=== PATIENT | male | born 1990 | race Caucasian/White ===

== ENCOUNTER 2018-09-11 19:54 | Inpatient (IN) | payer SELFPAY ==
[~2018-09-11] VITALS: Ht 172.7 cm; Wt 110.7 kg
--- NOTE | 2018-09-11 21:04 | PHYS DOC ---
Past Medical History Past Medical History: Anxiety, Depression Past Surgical History: No Surgical History Smoking: Quit Greater Than 1 Year Alcohol Use: None Drug Use: Methamphetamine Adult General Chief Complaint Chief Complaint: MULTIPLE COMPLAINTS HPI HPI Patient is a 28 year old male who presents to the ER with multiple complaints. Patient is a poor historian. The patient states he got out of intermediate on Monday, and then went and smoked meth with a girl. Patient states he was sitting on the ground and on his leg and started having numbness going down his legs. The patient when asked again states he fell on Monday. States today he is having bilateral pain down his legs with reduced sensation, also states he's not had a bowel movement, or been able to urinate since Monday. If his pain is 10 out of 10 in severity and pins and needles. Lower back pain is also having reduced sensation around that area. He mentions prior to arrival. Review of Systems Review of Systems Constitutional: Denies fever or chills [] Eyes: Denies change in visual acuity, redness, or eye pain [] HENT: Denies nasal congestion or sore throat [] Respiratory: Denies cough or shortness of breath [] Cardiovascular: No additional information not addressed in HPI [] GI: Denies abdominal pain, nausea, vomiting, bloody stools or diarrhea [] : Denies dysuria or hematuria [] Musculoskeletal: Reports lower back pain, and reduced sensation bilaterally on legs. Integument: Denies rash or skin lesions [] Neurologic: Denies headache, has weakness and sensory changes bilateral lower extremity. Endocrine: Denies polyuria or polydipsia [] Complete systems were reviewed and found to be within normal limits, except as documented in this note. Current Medications Current Medications Current Medications Medications (Trade) Dose Ordered Sig/Mirela Start Time Stop Time Status Last Admin Dose Admin Albuterol Sulfate (Ventolin Neb Soln) 10 mg 1X ONCE 09/11/18 23:00 09/11/18 23:01 DC 09/12/18 00:30 10 MG Calcium Gluconate (Calcium Gluconate) 1,000 mg 1X ONCE 09/11/18 23:00 09/11/18 23:01 DC 09/11/18 22:43 1,000 MG Ceftriaxone Sodium (Rocephin) 1 gm 1X ONCE 09/11/18 23:00 09/11/18 23:01 DC 09/11/18 22:43 1 GM Dextrose (Dextrose 50%-Water Syringe) 25 gm 1X ONCE 09/11/18 23:00 09/11/18 23:01 DC 09/11/18 22:42 25 GM Insulin Human Regular (HumuLIN R VIAL) 10 unit 1X ONCE 09/11/18 23:00 09/11/18 23:01 DC 09/11/18 23:51 10 UNIT Morphine Sulfate (Morphine Sulfate) 4 mg 1X ONCE 09/11/18 21:30 09/11/18 21:31 DC 09/11/18 21:20 4 MG Sodium Bicarbonate (Sodium Bicarb Adult 8.4% Syr) 50 meq 1X ONCE 09/11/18 23:00 09/11/18 23:01 DC 09/11/18 23:49 50 MEQ Sodium Chloride 1,000 ml @ 1,000 mls/hr 1X ONCE 09/11/18 23:00 09/11/18 23:59 DC 09/11/18 23:50 1,000 MLS/HR Allergies Allergies Allergies Coded Allergies Type Severity Reaction Last Updated Verified No Known Drug Allergies 09/11/18 No Physical Exam Physical Exam Constitutional: Well developed, well nourished, no acute distress, non-toxic appearance. [] HENT: Normocephalic, atraumatic, bilateral external ears normal, oropharynx moist, no oral exudates, nose normal. [] Eyes: PERRLA, EOMI, conjunctiva normal, no discharge. [] Neck: Normal range of motion, no tenderness, supple, no stridor. [] Cardiovascular:Heart rate regular rhythm, no murmur [] Lungs & Thorax: Bilateral breath sounds clear to auscultation [] Abdomen: Bowel sounds normal, soft, no tenderness, no masses, no pulsatile masses. [] Skin: Warm, dry, no erythema, no rash. [] Back: Lumbar Tenderness, no CVA tenderness. [] Extremities: No tenderness, no cyanosis, no clubbing, ROM intact, no edema. [] Neurologic: Alert and oriented X 3, focal weakness walking fell today, reduced sensory bilateral legs, and perianal area. Reduced rectal tone. +Babinski reflex. Psychologic: Affect normal, judgement normal, mood normal. [] Current Patient Data Vital Signs Vital Signs Date Time Temp Pulse Resp B/P (MAP) Pulse Ox O2 Delivery O2 Flow Rate FiO2 7/10/19 00:32 Room Air 09/11/18 21:20 16 100 09/11/18 20:19 98.1 103 116/78 (91) 98.1 Lab Values Laboratory Tests Test 09/11/18 20:50 09/11/18 21:00 White Blood Count 17.0 x10^3/uL (4.0-11.0) H Red Blood Count 4.77 x10^6/uL (4.30-5.70) Hemoglobin 13.9 g/dL (13.0-17.5) Hematocrit 39.0 % (39.0-53.0) Mean Corpuscular Volume 82 fL (79-100) Mean Corpuscular Hemoglobin 29 pg (25-35) Mean Corpuscular Hemoglobin Concent 36 g/dL (31-37) Red Cell Distribution Width 13.0 % (11.5-14.5) Platelet Count 320 x10^3/uL (140-400) Neutrophils (%) (Auto) 92 % (31-73) H Lymphocytes (%) (Auto) 3 % (24-48) L Monocytes (%) (Auto) 4 % (0-9) Eosinophils (%) (Auto) 0 % (0-3) Basophils (%) (Auto) 0 % (0-3) Neutrophils # (Auto) 15.7 x10^3uL (1.8-7.7) H Lymphocytes # (Auto) 0.5 x10^3/uL (1.0-4.8) L Monocytes # (Auto) 0.7 x10^3/uL (0.0-1.1) Eosinophils # (Auto) 0.0 x10^3/uL (0.0-0.7) Basophils # (Auto) 0.0 x10^3/uL (0.0-0.2) Segmented Neutrophils % 90 % (35-66) H Lymphocytes % 5 % (24-48) L Monocytes % 5 % (0-10) Platelet Estimate Adequate (ADEQUATE) Polychromasia Slight Anisocytosis Slight Prothrombin Time 14.7 SEC (11.7-14.0) H Prothrombin Time INR 1.2 (0.8-1.1) H PTT 31 SEC (24-38) Sodium Level 112 mmol/L (136-145) *L Potassium Level 7.0 mmol/L (3.5-5.1) *H Chloride Level 73 mmol/L (98-107) L Carbon Dioxide Level 12 mmol/L (21-32) L Anion Gap 27 (6-14) H Blood Urea Nitrogen 110 mg/dL (8-26) H Creatinine 13.4 mg/dL (0.7-1.3) H Estimated GFR (Cockcroft-Gault) 4.4 BUN/Creatinine Ratio 8 (6-20) Glucose Level 81 mg/dL (70-99) Lactic Acid Level 1.1 mmol/L (0.4-2.0) Calcium Level 5.4 mg/dL (8.5-10.1) *L Magnesium Level 3.0 mg/dL (1.8-2.4) H Total Bilirubin 0.9 mg/dL (0.2-1.0) Aspartate Amino Transferase (AST) 2923 U/L (15-37) H Alanine Aminotransferase (ALT) 818 U/L (16-63) H Alkaline Phosphatase 89 U/L (46-116) Creatine Kinase > 095534 U/L (39-308) H Troponin I Quantitative 0.352 ng/mL (0.000-0.055) Total Protein 7.0 g/dL (6.4-8.2) Albumin 3.4 g/dL (3.4-5.0) Albumin/Globulin Ratio 0.9 (1.0-1.7) L Lipase 972 U/L (73-393) H Ethyl Alcohol Level < 10 mg/dL (0-10) Urine Color Red Urine Clarity Clear Urine pH 6.0 Urine Specific [place] 1.020 Urine Protein >=300 mg/dL (NEG-TRACE) Urine Glucose (UA) 100 mg/dL (NEG) Urine Ketones (Stick) Trace mg/dL (NEG) Urine Blood Large (NEG) Urine Nitrite Positive (NEG) Urine Bilirubin Moderate (NEG) Urine Urobilinogen Dipstick 0.2 mg/dL (0.2 mg/dL) Urine Leukocyte Esterase Small (NEG) Urine RBC 3-5 /HPF (0-2) Urine WBC Occ /HPF (0-4) Urine Squamous Epithelial Cells None /LPF Urine Amorphous Sediment Present /HPF Urine Bacteria 0 /HPF (0-FEW) Urine Random Creatinine 199.6 mg/dL (Not Establ.) Urine Opiates Screen Neg (NEG) Urine Methadone Screen Neg (NEG) Urine Barbiturates Neg (NEG) Urine Phencyclidine Screen Neg (NEG) Urine Amphetamine/Methamphetamine Pos (NEG) Urine Benzodiazepines Screen Neg (NEG) Urine Cocaine Screen Neg (NEG) Urine Cannabinoids Screen Neg (NEG) Urine Ethyl Alcohol Neg (NEG) Laboratory Tests 09/11/18 20:50 Laboratory Tests 09/11/18 20:50 EKG EKG EKG interpreted by Dr. Reynolds Shows tachycardia with peaked t-waves with rate of around 120.[] Radiology/Procedures Radiology/Procedures []PATIENT: FREDY WESLEYCCOUNT: [id number]#: [id number] : 1990 LOCATION: ER AGE: 28 SEX: M EXAM STATUS: REG ER ORD. PHYSICIAN: EMERY FLANNERY APRN REASON: elevated liver enzymes, abd pain PROCEDURE: ABDOMEN LTD Ultrasound the abdomen limited. HISTORY: Elevated liver enzymes, abdominal pain Ultrasound was used to evaluate the abdomen. Pancreas is poorly visualized. Liver is difficult to completely evaluate. A focal liver lesion was not identified. Liver is not enlarged. Gallbladder was distended. Gallstones were not identified. There was mild sludge in the gallbladder. Gallbladder wall was upper normal in thickness. Right kidney was 12.4 cm in length without a mass or hydronephrosis. Aorta and vena cava were poorly evaluated. Common duct was normal measuring 3.6 mm. IMPRESSION: 1. Sludge noted in the gallbladder without gallstones. 2. Common duct normal in size. 3. Limited evaluation of the liver. Electronically signed by: Shahriar Charlton MD (09/11/2018 10:51 PM) [facility] DICTATED and SIGNED BY: SHAHRIAR CHARLTON MD DATE: 09/11/18 2251 PATIENT: JERRY WESLEY ACCOUNT: [id number] : 1990 LOCATION: ER AGE: 28 SEX: M EXAM STATUS: REG ER ORD. PHYSICIAN: EMERY FLANNERY APRN REASON: unable to urinate, back pain, decreased rectal tone,call [phone] PROCEDURE: LUMBAR SPINE WO CONTRAST Indication: Back pain with difficulty with urination Procedure: Multiplanar multisequence MRI images obtained through the lumbar spine without intravenous contrast. Comparison: None. Findings: Edema to the subcutaneous soft tissues posteriorly. No definite acute fracture. There is prominent epidural fat identified at L5 as well as within the sacral region. There is some regions of high T2 signal within the paraspinal musculature and right psoas. T12-L1: No disc bulge. No significant central canal or neuroforaminal stenosis. L1-L2: No disc bulge. No significant central canal or neuroforaminal stenosis. Facet hypertrophy. L2-L3: No disc bulge. No significant central canal or neuroforaminal stenosis. Facet hypertrophy. L3-L4: No disc bulge. No significant central canal or neuroforaminal stenosis. Facet hypertrophy with small joint effusion. Mild disc osteophyte complex. Thecal sac is 10 mm anterior to posterior. L4-L5: Posterior disc protrusion with osteophyte formation and annular tear suspected. Ligament of flavum and facet hypertrophy with facet joint effusions. Effacement of the bilateral lateral recess. Neural foramina patent. Mild central canal narrowing. L5-S1: Facet hypertrophy with facet joint effusions and ligamentum flavum hypertrophy. Large amount of epidural fat with small size of thecal sac at this level. Disc protrusion and annular tear. Mild right and mild to moderate left neural foraminal stenosis. Impression: There is evidence of degenerative changes the spine with disc protrusions and annular tears at L4-5 and L5-S1 as well as osteophyte formation at these vertebral body endplates and facet hypertrophy. This contributes to central canal and neural foraminal stenosis as detailed above. Epidural lipomatosis is identified most severe in the lower lumbar spine extending into the sacrum with resultant small size of the thecal sac. High T2 signal is identified within the right greater than left paraspinal musculature and psoas which can be seen with edema to these regions. Can be seen with causes such as myositis, muscle strain or neurological in nature from causes such as denervation associated edema. Electronically signed by: Nick An MD (09/12/2018 12:04 AM) [facility] DICTATED and SIGNED BY: NICK AN MD DATE: 09/12/18 0004 Course & Med Decision Making Course & Med Decision Making Pertinent Labs and Imaging studies reviewed. (See chart for details) Patient is a poor historian, seems to have fallen while doing Meth on Monday. Has not urinated or had a bowel movement since Monday. Fell again today. Bladder scan showed 901 mL of retained urine. Will have nursing place [facility]. Will get MRI to rule out Cauda Equina as patient has reduced rectal tone and bowel/bladder changes. Will also get labs. Labs show hepatorenal syndrome. Elevated liver enzymes, elevated BUN/Creatinine, potassium of 7.0, sodium of 112. Will page nephrology. Discussed case with Dr. Solorio and Dr. Alonso. Dr. Alonso will admit. Dr. Solorio (Nephrology) requests giving fluids, and then rechecking labs. Will page Dr. Cruz. Dr. Cruz's nurse practitioner Tammy called back at 12:30. Discussed case with her who also discussed with Dr. Cruz. I discussed my concern for Cauda Equina. They requested Cervical and Thoracic spine MRI. Will admit to ICU. Will order 3rd liter of fluid and maintenance at 175/hr. Dragon Disclaimer Dragon Disclaimer This electronic medical record was generated, in whole or in part, using a voice recognition dictation system. Departure Departure Impression: Primary Impression: Hepatorenal syndrome Additional Impressions: Elevated troponin Urinary tract infection Methamphetamine abuse Hyperkalemia Hyponatremia Urinary retention Rhabdomyolysis Neurological complaint Disposition: ADMITTED INPATIENT Admitting Physician: HIMS Condition: STABLE Referrals: NO PCP (PCP) Problem Qualifiers Additional Impressions: Urinary tract infection Urinary tract infection type: acute cystitis Hematuria presence: with hematuria Qualified Codes: N30.01 - Acute cystitis with hematuria Rhabdomyolysis Rhabdomyolysis type: traumatic Encounter type: initial encounter Qualified Codes: T79.6XXA - Traumatic ischemia of muscle, initial encounter EMERY FLANNERY APRN Sep 11, 2018 21:04
[2018-09-11 21:05] LABS: BASO % 0 % (0-3); EOS % 0 % (0-3); HEMOGLOBIN 13.9 g/dL (13.0-17.5); LYMPH # 0.5 x10^3/uL (1.0-4.8); LYMPH % 3 % (24-48); MEAN CORPUSCULAR HEMOGLOBIN 29 pg (25-35); MEAN CORPUSCULAR HGB CONC 36 g/dL (31-37); MEAN CORPUSCULAR VOLUME 82 fL (79-100); MONO # 0.7 x10^3/uL (0.0-1.1); MONO % 4 % (0-9); NEUT # 15.7 x10^3uL (1.8-7.7); NEUT % 92 % (31-73); PLATELET COUNT 320 x10^3/uL (140-400); RED BLOOD COUNT 4.77 x10^6/uL (4.30-5.70)
[2018-09-11 21:14] LABS: BILIRUBIN,URINE MODERATE (NEG); CLARITY,URINE CLEAR; COLOR,URINE RED; NITRITE,URINE POSITIVE (NEG); PROTEIN,URINE >=300 mg/dL (NEG-TRACE); UROBILINOGEN,URINE 0.2 mg/dL (0.2 mg/dL)
[2018-09-11 21:22] LABS: AMPHETAMINE/METHAMPHETAMINE POS (NEG); BARBITURATES NEG (NEG); BENZODIAZEPINES NEG (NEG); CANNABINOIDS NEG (NEG); COCAINE NEG (NEG); METHADONE NEG (NEG); OPIATES NEG (NEG); PHENCYCLIDINE NEG (NEG)
[2018-09-11 21:23] LABS: PROTHROMBIN TIME PATIENT 14.7 SEC (11.7-14.0)
[2018-09-11 21:25] LABS: AMORPHOUS SEDIMENT,UR PRESENT /HPF; BACTERIA,URINE 0 /HPF (0-FEW); WBC,URINE OCC /HPF (0-4)
[2018-09-11] MEDS ORDERED: MORPHINE SULFATE 4 MG/ML VIAL. IV ONE (21:30)
[2018-09-11 21:31] LABS: ALBUMIN 3.4 g/dL (3.4-5.0); ALBUMIN/GLOBULIN RATIO 0.9 (1.0-1.7); CREATININE 13.4 mg/dL (0.7-1.3); GFR 4.4; TOTAL BILIRUBIN 0.9 mg/dL (0.2-1.0)
[2018-09-11 21:49] LABS: CALCIUM 5.4 mg/dL (8.5-10.1)
[2018-09-11 22:10] LABS: % MONOS 5 % (0-10)
[2018-09-11 22:11] LABS: % LYMPHS 5 % (24-48); % SEGS 90 % (35-66); ANISOCYTOSIS SLIGHT; PLT ESTIMATE ADEQUATE (ADEQUATE); POLYCHROMASIA SLIGHT
[2018-09-11] MEDS ORDERED: IV NORMAL SALINE 1000ML BAG 1,000 ML IV ONE ×2 (22:30→23:00)
--- NOTE | 2018-09-11 22:54 | RAD ---
Ultrasound the abdomen limited. HISTORY: Elevated liver enzymes, abdominal pain Ultrasound was used to evaluate the abdomen. Pancreas is poorly visualized. Liver is difficult to completely evaluate. A focal liver lesion was not identified. Liver is not enlarged. Gallbladder was distended. Gallstones were not identified. There was mild sludge in the gallbladder. Gallbladder wall was upper normal in thickness. Right kidney was 12.4 cm in length without a mass or hydronephrosis. Aorta and vena cava were poorly evaluated. Common duct was normal measuring 3.6 mm. IMPRESSION: 1. Sludge noted in the gallbladder without gallstones. 2. Common duct normal in size. 3. Limited evaluation of the liver. Electronically signed by: Shahriar Charlton MD (09/11/2018 10:51 PM) [facility]
[2018-09-11] MEDS ORDERED: cefTRIAXone IV Push 1 GM VIAL. IVP ONE (23:00)
[2018-09-11] MEDS ORDERED: SODIUM BICARB ADULT 8.4% 50 MEQ/50 ML DISP.SYRIN. IV ONE (23:00)
[2018-09-11] MEDS ORDERED: DEXTROSE 50% 25 GM / 50ML DISP.SYRIN. IV ONE (23:00)
[2018-09-11] MEDS ORDERED: CALCIUM GLUCONATE 1,000 MG/10 ML VIAL. IVP ONE (23:00)
[2018-09-11] MEDS ORDERED: ALBUTEROL SULFATE 2.5 MG/3 ML NEBU. CONT NEB ONE (23:00)
[2018-09-11] MEDS ORDERED: INSULIN REGULAR 100 UNIT/ML 3ML VIAL. IV ONE (23:00)
[2018-09-12] VITALS (16 sets, daily range): BP systolic 102–146; BP diastolic 48–95
--- NOTE | 2018-09-12 00:07 | RAD ---
Indication: Back pain with difficulty with urination Procedure: Multiplanar multisequence MRI images obtained through the lumbar spine without intravenous contrast. Comparison: None. Findings: Edema to the subcutaneous soft tissues posteriorly. No definite acute fracture. There is prominent epidural fat identified at L5 as well as within the sacral region. There is some regions of high T2 signal within the paraspinal musculature and right psoas. T12-L1: No disc bulge. No significant central canal or neuroforaminal stenosis. L1-L2: No disc bulge. No significant central canal or neuroforaminal stenosis. Facet hypertrophy. L2-L3: No disc bulge. No significant central canal or neuroforaminal stenosis. Facet hypertrophy. L3-L4: No disc bulge. No significant central canal or neuroforaminal stenosis. Facet hypertrophy with small joint effusion. Mild disc osteophyte complex. Thecal sac is 10 mm anterior to posterior. L4-L5: Posterior disc protrusion with osteophyte formation and annular tear suspected. Ligament of flavum and facet hypertrophy with facet joint effusions. Effacement of the bilateral lateral recess. Neural foramina patent. Mild central canal narrowing. L5-S1: Facet hypertrophy with facet joint effusions and ligamentum flavum hypertrophy. Large amount of epidural fat with small size of thecal sac at this level. Disc protrusion and annular tear. Mild right and mild to moderate left neural foraminal stenosis. Impression: There is evidence of degenerative changes the spine with disc protrusions and annular tears at L4-5 and L5-S1 as well as osteophyte formation at these vertebral body endplates and facet hypertrophy. This contributes to central canal and neural foraminal stenosis as detailed above. Epidural lipomatosis is identified most severe in the lower lumbar spine extending into the sacrum with resultant small size of the thecal sac. High T2 signal is identified within the right greater than left paraspinal musculature and psoas which can be seen with edema to these regions. Can be seen with causes such as myositis, muscle strain or neurological in nature from causes such as denervation associated edema. Electronically signed by: Edgardo Champagne MD (09/12/2018 12:04 AM) [facility]
[2018-09-12] MEDS ORDERED: IV NORMAL SALINE 1000ML BAG 1,000 ML IV ONE ×3 (01:00→12:45)
[2018-09-12] MEDS ORDERED: IV NORMAL SALINE 1000ML BAG 1,000 ML IV SCH ×2 (01:08→01:30)
[2018-09-12] MEDS ORDERED: ONDANSETRON PF 4 MG/2 ML VIAL. IV PRN ×2 (01:15)
[2018-09-12] MEDS ORDERED: 0.9 % SODIUM CHLORIDE 10 ML DISP.SYRIN. IV PRN (01:15)
[2018-09-12 05:39] LABS: BASO % 0 % (0-3); EOS % 0 % (0-3); HEMATOCRIT 35.7 % (39.0-53.0); HEMOGLOBIN 12.8 g/dL (13.0-17.5); LYMPH # 0.8 x10^3/uL (1.0-4.8); LYMPH % 7 % (24-48); MEAN CORPUSCULAR HEMOGLOBIN 29 pg (25-35); MEAN CORPUSCULAR HGB CONC 36 g/dL (31-37); MEAN CORPUSCULAR VOLUME 82 fL (79-100); MONO # 0.5 x10^3/uL (0.0-1.1); MONO % 4 % (0-9); NEUT # 9.7 x10^3uL (1.8-7.7); NEUT % 89 % (31-73); PLATELET COUNT 217 x10^3/uL (140-400); RED BLOOD COUNT 4.37 x10^6/uL (4.30-5.70); RED CELL DISTRIBUTION WIDTH 12.8 % (11.5-14.5)
[2018-09-12 06:09] LABS: ALBUMIN 2.6 g/dL (3.4-5.0); ALBUMIN/GLOBULIN RATIO 0.7 (1.0-1.7); CREATININE 13.2 mg/dL (0.7-1.3); GFR 4.5; POTASSIUM 5.6 mmol/L (3.5-5.1); TOTAL BILIRUBIN 0.6 mg/dL (0.2-1.0); TOTAL PROTEIN 6.2 g/dL (6.4-8.2)
--- NOTE | 2018-09-12 06:33 | RAD ---
INDICATION: Loss of rectal tone with concern for neurologic origin. COMPARISON: MRI lumbar earlier same day. TECHNIQUE: Multiplanar, multisequence MRI images are obtained through the thoracic spine without intravenous contrast. FINDINGS: There is patient motion on numerous sequences since the patient was having difficulty tolerating the examination at this time. At the upper thoracic spine on the T2 sagittal images there is apparent low T2 signal at the anterior aspect of the central canal however this is in a region of motion artifact. On the axial T2-weighted images there is also some low T2 signal intensity material at the anterior aspect of the central canal at the upper thoracic spine including at least the T2-T5 level. There is some suspected facet hypertrophy as well as well. Suspected disc protrusion or osteophyte formation at the T3-4 level on the right. There is some possible mild high T2 signal seen within the thoracic spinal cord with patchy appearance. Prominent epidural fat is identified throughout the thoracic spine. There is high T2 signal seen within the right paraspinal musculature within the thoracic region as well. IMPRESSION: 1. Very limited examination secondary to a large amount of patient motion. This examination can be repeated at a later time to better assess given this limitation. 2. At the upper thoracic spine there is some regions of low T2 signal at the anterior aspect of the central canal. Is difficult to tell this is artifactual in nature or if there is a pathologic process within the region such as soft tissue or blood within the anterior aspect of the central canal contributing to this appearance. Would repeat this examination when the patient can better tolerate. Would also recommend thin section axial T2 images when the patient can better tolerate. 3. There is some regions of possible high T2 signal within the spinal cord. Again this examination is limited secondary to motion artifact however recommend that the study be repeated with contrast to ensure that this does not persist to suggest edema and also to ensure that there is no foci of enhancement within the spinal cord to suggest causes such as demyelination 4. There is some suspected degenerative changes with facet hypertrophy as well as disc osteophyte complex. 5. There is some high T2 signal seen within the paraspinal musculature. Again this could be secondary to causes such as myositis, muscle tear or neurological in nature from causes such as denervation associated edema. 6. At the posterior elements of the thoracic spine at the mid thoracic spine there is some apparent edema identified which also involves the adjacent paraspinal musculature. Again there is a large amount of motion therefore difficult to assess this region however posttraumatic etiology such as fracture or soft tissue remains within the differential and further imaging is warranted. This could be obtained with repeat thoracic spine MRI when the patient can better tolerate and thoracic spine CT is an option to further evaluate for associated fracture. 7. Focus of high T2 signal is seen at the right upper thorax posterior medially as well. Could be secondary to some edema or fluid within the region and a follow-up CT could BE obtained to further evaluate to assess for fracture within the region. This is near the region of the transverse process as well as the right rib. 8. Report was called to the patient's nurse on the floor at the time of dictation. Electronically signed by: Edgardo Champagne MD (09/12/2018 6:30 AM) [facility]
--- NOTE | 2018-09-12 07:30 | NUR ---
UO recorded was bag from ER time (placement of ruiz) to 0700.
--- NOTE | 2018-09-12 07:49 | EKG ---
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1990 Requested By: EMERY FLANNERY Order Number: [id number] Reading MD: Measurements Intervals [place] Rate: 196 P: RI: QRS: 0 QRSD: 56 T: -22 QT: 220 QTc: 400 Interpretive Statements IRREGULAR RHYTHM, NO P-WAVE FOUND VENTRICULAR PREMATURE COMPLEX(ES), BIGEMINY R-S TRANSITION ZONE IN V LEADS DISPLACED TO THE LEFT LOW VOLTAGE CONSIDER RIGHT VENTRICULAR HYPERTROPHY QRS(T) CONTOUR ABNORMALITY CONSIDER ANTEROSEPTAL MYOCARDIAL DAMAGE ST ABNORMALITY, POSSIBLE ANTERIOR SUBENDOCARDIAL INJURY INFEROLATERAL SUBENDOCARDIAL INJURY ABNORMAL ECG RI6.01 No previous ECG available for comparison
--- NOTE | 2018-09-12 08:00 | NUR ---
IV finally secured inLt AC and fluids restarted. Pt awake, occ confused but cooperative. MRI results were called to DR Cruz who ordered neuro consult,Dr Tapia here. LP ordered and pt agreeable signed consent. Pt with decreased movement andf sensation to lower ext. C/o pain back lower. DR felipe paged. DR Mcintosh consult placed. as well as DR Pimentel. Pt states no family but only friend at this time. Did not want him called.
[2018-09-12] MEDS: MORPHINE SULFATE 4 MG/ML VIAL. IV PRN ×3 (09:18→19:49)
[2018-09-12] MEDS ORDERED: SODIUM BICARB ADULT 8.4% 50 MEQ/50 ML DISP.SYRIN. IV ONE (10:00)
--- NOTE | 2018-09-12 10:04 | CONS ---
DATE OF CONSULTATION: ATTENDING PHYSICIAN: Dr. Alonso. REASON FOR CONSULTATION: Critical care management of metabolic acidosis, rhabdomyolysis. HISTORY OF PRESENT ILLNESS: The patient is a 28-year-old male who has history of substance abuse including marijuana and meth. He was found smoking meth with a girl. The patient was noted to have numbness down his legs. He became weak as well and reportedly fell. He has no shortness of breath, no cough, no fever, no chills. The patient's labs were highly abnormal with a bicarbonate of 10, sodium of 117 and a BUN of 112 and creatinine of 13. His bilirubin was 0.6 with an AST of 2204. CPK was 100,000. He has been hydrated aggressively, so far received 3 liters of IV fluids. No chest x-ray has been done so far. He had thoracic spine MRI, which was abnormal for which Neurosurgery was consulted and they did not think that there is anything surgically needs to be done. Neurology has been consulted and the lumbar puncture has been ordered. I have been asked to see him for further evaluation. He is on room air and no obvious respiratory distress. PAST MEDICAL HISTORY: History of anxiety, depression and polysubstance abuse. PAST SURGICAL HISTORY: No recent surgery. ALLERGIES: None. MEDICATIONS: Reviewed, as listed in the [facility] including antibiotics that he received in the ER. REVIEW OF SYSTEMS: Twelve-point system obtained. Pertinent positives discussed in my history of present illness, otherwise noncontributory. All systems that were negative were reviewed as well. SOCIAL HISTORY: History of marijuana and meth use. Denies IV cocaine use. PHYSICAL EXAMINATION: VITAL SIGNS: Reviewed. Blood pressure 146/95, pulse ox 98% on room air, afebrile. HEENT: Sclerae nonicteric. NECK: Supple. LUNGS: Clear. CARDIOVASCULAR: Regular rate. ABDOMEN: Soft. EXTREMITIES: With edema in the right hand. He has multiple punctate skin lesions. He has some ulceration in one of the right hand finger. He has some edema in the lower extremities. LABORATORY DATA: Reviewed. Sodium 117, bicarbonate 10, BUN and creatinine of 112 and 13. Lactic acid is 1.1. Calcium is 5.0. Albumin level of 2.6. INR 1.2. White cell count was 17,000; now 11.0. IMPRESSION: 1. Status post fall with acute rhabdomyolysis with markedly high CPKs and acute renal failure. 2. Acute kidney injury secondary to rhabdomyolysis. 3. Severe metabolic acidosis secondary to acute kidney injury. Clinically, less likely sepsis. Lactic acid is 1.1 4. Hyponatremia. 5. Moderate protein-calorie malnutrition. 6. Leukocytosis, likely reactive. 7. Status post fall with abnormal thoracic MRI. Neurosurgery following. 8. Abnormal liver function test secondary to hypoperfusion and rhabdomyolysis. 9. Hypocalcemia. RECOMMENDATIONS: 1. Continue with present fluid resuscitation and monitor urine output closely. 2. Follow Renal's recommendation. 3. We will also recommend giving 2 amps of bicarbonate. 4. Monitor sodium level. 5. Follow Neurology and Neurosurgery's recommendation. 6. Continue empiric antibiotic, although clinical suspicion for infection is low. 7. Follow CPKs. 8. Correct calcium and follow the levels. 9. Obtain chest x-ray. 10. Discussed with RN and will follow along with you. Critical care time 35 minutes. EITAN HAGAN MD DR: DENISA/arpit JOB#: [id number] / [id number]
[2018-09-12 10:15] LABS: ANION GAP 27 (6-14); BLOOD UREA NITROGEN 115 mg/dL (8-26); CHLORIDE 81 mmol/L (98-107); CREATININE 13.4 mg/dL (0.7-1.3); GFR 4.4; GLUCOSE 81 mg/dL (70-99)
[2018-09-12 10:24] LABS: CALCIUM < 5.0 mg/dL (8.5-10.1)
[2018-09-12 10:25] LABS: CARBON DIOXIDE 9 mmol/L (21-32); POTASSIUM 6.6 mmol/L (3.5-5.1); SODIUM 117 mmol/L (136-145)
--- NOTE | 2018-09-12 10:27 | PDOC1 ---
History and Physical Date of Admission Date of Admission DATE: 09/12/18 TIME: 10:27 Identification/Chief Complaint Chief Complaint SEEN IN ER, 28 year old male who presents to the ER with multiple complaints. Patient is a poor historian. The patient states he got out of intermediate on Monday, and then went and smoked meth with a girl. Patient states he was sitting on the ground and on his leg and started having numbness going down his legs. The patient when asked again states he fell on Monday. States today he is having bilateral pain down his legs with reduced sensation, also states he's not had a bowel movement, or been able to urinate since Monday. If his pain is 10 out of 10 in severity and pins and needles. Lower back pain NOTED ARF ON LABS burn noted right index finger Past Medical History Past Medical History Past Medical History Past Medical History: Anxiety, Depression Past Surgical History: No Surgical History Smoking: Quit Greater Than 1 Year Alcohol Use: None Drug Use: Methamphetamine FAMILY HX ANXIETY Family History Family History: Hypertension Social History Smoke: <1 pack per day ALCOHOL: occassional Drugs: Crystal meth, Other (smokes his meth) Current Problem List Problem List Problems Medical Problems: (1) Elevated troponin Status: Acute (2) Hepatorenal syndrome Status: Acute (3) Hyperkalemia Status: Acute (4) Hyponatremia Status: Acute (5) Methamphetamine abuse Status: Acute (6) Neurological complaint Status: Acute (7) Rhabdomyolysis Status: Acute (8) Urinary retention Status: Acute (9) Urinary tract infection Status: Acute Current Medications Current Medications Current Medications Morphine Sulfate (Morphine Sulfate) 4 mg 1X ONCE IV Last administered on 09/11at 21:20; Start 09/11/18 at 21:30; Stop 09/11/18 at 21:31; Status DC Sodium Chloride 1,000 ml @ 1,000 mls/hr 1X ONCE IV Last administered on 09/11/18at 22:30; Start 09/11/18 at 22:30; Stop 09/11/18 at 23:29; Status DC Calcium Gluconate (Calcium Gluconate) 1,000 mg 1X ONCE IVP Last administered on 09/11/18at 22:43; Start 09/11/18 at 23:00; Stop 09/11/18 at 23:01; Status DC Insulin Human Regular (HumuLIN R VIAL) 10 unit 1X ONCE IV Last administered on 09/11/18at 23:51; Start 09/11/18 at 23:00; Stop 09/11/18 at 23:01; Status DC Dextrose (Dextrose 50%-Water Syringe) 25 gm 1X ONCE IV Last administered on 09/11/18at 22:42; Start 09/11/18 at 23:00; Stop 09/11/18 at 23:01; Status DC Sodium Bicarbonate (Sodium Bicarb Adult 8.4% Syr) 50 meq 1X ONCE IV Last administered on 09/11/18at 23:49; Start 09/11/18 at 23:00; Stop 09/11/18 at 23:01; Status DC Sodium Chloride 1,000 ml @ 1,000 mls/hr 1X ONCE IV Last administered on 09/11/18at 23:50; Start 09/11/18 at 23:00; Stop 09/11/18 at 23:59; Status DC Albuterol Sulfate (Ventolin Neb Soln) 10 mg 1X ONCE CONT NEB Last administered on 09/12/18at 00:30; Start 09/11/18 at 23:00; Stop 09/11/18 at 23:01; Status DC Ceftriaxone Sodium (Rocephin) 1 gm 1X ONCE IVP Last administered on 09/11/18at 22:43; Start 09/11/18 at 23:00; Stop 09/11/18 at 23:01; Status DC Sodium Chloride 1,000 ml @ 1,000 mls/hr 1X ONCE IV Last administered on 09/12/18at 01:00; Start 09/12/18 at 01:00; Stop 09/12/18 at 01:59; Status DC Lorazepam (Ativan Inj) 0.5 mg PRN Q6HRS PRN IV ANXIETY / AGITATION Last administered on 09/12/18at 03:05; Start 09/12/18 at 01:15 Ondansetron HCl (Zofran) 4 mg PRN Q6HRS PRN IV NAUSEA/VOMITING 1ST CHOICE; Start 09/12/18 at 01:15; Stop 09/12/18 at 01:22; Status DC Sodium Chloride (Normal Saline Flush) 3 ml QSHIFT PRN IV AFTER MEDS AND BLOOD DRAWS; Start 09/12/18 at 01:15 Sodium Chloride 1,000 ml @ 175 mls/hr Q5H43M IV ; Start 09/12/18 at 01:08; Stop 09/12/18 at 01:23; Status DC Ondansetron HCl (Zofran) 4 mg PRN Q8HRS PRN IV NAUSEA/VOMITING 1ST CHOICE; Start 09/12/18 at 01:15; Stop 09/13/18 at 01:14 Sodium Chloride 1,000 ml @ 175 mls/hr Q5H43M IV ; Start 09/12/18 at 01:30; Stop 09/13/18 at 01:29 Morphine Sulfate (Morphine Sulfate) 4 mg PRN Q4HRS PRN IV SEVERE PAIN Last administered on 09/12/18at 09:18; Start 09/12/18 at 09:00 Sodium Bicarbonate (Sodium Bicarb Adult 8.4% Syr) 100 meq 1X ONCE IV Last administered on 09/12/18at 10:02; Start 09/12/18 at 10:00; Stop 09/12/18 at 10:01; Status DC Sodium Chloride 1,000 ml @ 1,000 mls/hr 1X ONCE IV Last administered on 09/12/18at 09:56; Start 09/12/18 at 10:00; Stop 09/12/18 at 10:59 Allergies Allergies: Coded Allergies: No Known Drug Allergies (Unverified , 09/11/18) ROS Review of System Review of Systems Review of Systems Constitutional: Denies fever or chills [] poor historian, sedated Eyes: Denies change in visual acuity, redness, or eye pain [] HENT: Denies nasal congestion or sore throat [] Respiratory: Denies cough or shortness of breath [] Cardiovascular: No additional information not addressed in HPI [] GI: Denies abdominal pain, nausea, vomiting, bloody stools or diarrhea [] : Denies dysuria or hematuria [] Musculoskeletal: Reports lower back pain, and reduced sensation bilaterally on legs. Integument: Denies rash or skin lesions [] Neurologic: Denies headache, has weakness and sensory changes bilateral lower extremity. Endocrine: Denies polyuria or polydipsia [] 14 PT systems were reviewed and found to be within normal limits, except as documented General: YES: Fatigue, Malaise Hematological and Lymphatic: No: Bleeding Problems, Blood Clots, Blood Transfusions, Brusing, Night Sweats, Pallor, Swollen Lymph Nodes, Other Gastrointestinal: Yes Nausea Neurological: Yes Gait Disturbance, Yes Numbness/Tingling Physical Exam Physical Exam Physical Exam Physical Exam Constitutional: Well developed, well nourished, no acute distress, non-toxic appearance. [] sedated after LP HENT: Normocephalic, atraumatic, bilateral external ears normal, oropharynx moist, no oral exudates, nose normal. [] Eyes: PERRLA, EOMI, conjunctiva normal, no discharge. [] Neck: Normal range of motion, no tenderness, supple, no stridor. [] Cardiovascular:Heart rate regular rhythm, no murmur [] Lungs & Thorax: Bilateral breath sounds clear to auscultation [] Abdomen: Bowel sounds normal, soft, no tenderness, no masses, no pulsatile masses. [] Skin: Warm, dry, no erythema, no rash. [] Back: Lumbar Tenderness, no CVA tenderness. [] Extremities: No tenderness, no cyanosis, no clubbing, ROM intact, no edema. [] BURN TO RIGHT INDEX FINGER , CIGARETTE BURN Neurologic: Alert and oriented X 3, focal weakness walking fell today, reduced sensory bilateral legs, and perianal area. Reduced rectal tone. +Babinski reflex. Psychologic: Affect normal, judgement normal, mood normal. [] General: Cooperative, moderate distress HEENT: PERRLA, EOMI Lungs: Normal air movement Heart: RRR, no thrills Breasts: Not examined Abdomen: Normal bowel sounds, Soft Rectal Exam: not examined PELVIC: Examination not indicated Extremities: No cyanosis, Other (burn to right index finger APPEARS OLD associated cellulitis) Neuro: Normal speech, Cranial nerves 3-12 NL Psych/Mental Status: Mental status NL Vitals Vitals Vital Signs Date Time Temp Pulse Resp B/P (MAP) Pulse Ox O2 Delivery O2 Flow Rate FiO2 09/12/18 09:18 20 Room Air 09/12/18 05:00 105 146/95 (112) 98 09/12/18 04:45 98.3 98.0 98.3 Labs Labs Laboratory Tests Test 09/11/18 20:50 09/11/18 21:00 09/12/18 05:15 09/12/18 09:39 White Blood Count 17.0 x10^3/uL (4.0-11.0) 11.0 x10^3/uL (4.0-11.0) Red Blood Count 4.77 x10^6/uL (4.30-5.70) 4.37 x10^6/uL (4.30-5.70) Hemoglobin 13.9 g/dL (13.0-17.5) 12.8 g/dL (13.0-17.5) Hematocrit 39.0 % (39.0-53.0) 35.7 % (39.0-53.0) Mean Corpuscular Volume 82 fL (79-100) 82 fL (79-100) Mean Corpuscular Hemoglobin 29 pg (25-35) 29 pg (25-35) Mean Corpuscular Hemoglobin Concent 36 g/dL (31-37) 36 g/dL (31-37) Red Cell Distribution Width 13.0 % (11.5-14.5) 12.8 % (11.5-14.5) Platelet Count 320 x10^3/uL (140-400) 217 x10^3/uL (140-400) Neutrophils (%) (Auto) 92 % (31-73) 89 % (31-73) Lymphocytes (%) (Auto) 3 % (24-48) 7 % (24-48) Monocytes (%) (Auto) 4 % (0-9) 4 % (0-9) Eosinophils (%) (Auto) 0 % (0-3) 0 % (0-3) Basophils (%) (Auto) 0 % (0-3) 0 % (0-3) Neutrophils # (Auto) 15.7 x10^3uL (1.8-7.7) 9.7 x10^3uL (1.8-7.7) Lymphocytes # (Auto) 0.5 x10^3/uL (1.0-4.8) 0.8 x10^3/uL (1.0-4.8) Monocytes # (Auto) 0.7 x10^3/uL (0.0-1.1) 0.5 x10^3/uL (0.0-1.1) Eosinophils # (Auto) 0.0 x10^3/uL (0.0-0.7) 0.0 x10^3/uL (0.0-0.7) Basophils # (Auto) 0.0 x10^3/uL (0.0-0.2) 0.0 x10^3/uL (0.0-0.2) Segmented Neutrophils % 90 % (35-66) Lymphocytes % 5 % (24-48) Monocytes % 5 % (0-10) Platelet Estimate Adequate (ADEQUATE) Polychromasia Slight Anisocytosis Slight Prothrombin Time 14.7 SEC (11.7-14.0) Prothromb Time International Ratio 1.2 (0.8-1.1) Activated Partial Thromboplast Time 31 SEC (24-38) Sodium Level 112 mmol/L (136-145) 117 mmol/L (136-145) 117 mmol/L (136-145) Potassium Level 7.0 mmol/L (3.5-5.1) 5.6 mmol/L (3.5-5.1) 6.6 mmol/L (3.5-5.1) Chloride Level 73 mmol/L (98-107) 80 mmol/L (98-107) 81 mmol/L (98-107) Carbon Dioxide Level 12 mmol/L (21-32) 10 mmol/L (21-32) 9 mmol/L (21-32) Anion Gap 27 (6-14) 27 (6-14) 27 (6-14) Blood Urea Nitrogen 110 mg/dL (8-26) 112 mg/dL (8-26) 115 mg/dL (8-26) Creatinine 13.4 mg/dL (0.7-1.3) 13.2 mg/dL (0.7-1.3) 13.4 mg/dL (0.7-1.3) Estimated GFR (Cockcroft-Gault) 4.4 4.5 4.4 BUN/Creatinine Ratio 8 (6-20) 8 (6-20) Glucose Level 81 mg/dL (70-99) 70 mg/dL (70-99) 81 mg/dL (70-99) Lactic Acid Level 1.1 mmol/L (0.4-2.0) Calcium Level 5.4 mg/dL (8.5-10.1) 5.0 mg/dL (8.5-10.1) < 5.0 mg/dL (8.5-10.1) Magnesium Level 3.0 mg/dL (1.8-2.4) Total Bilirubin 0.9 mg/dL (0.2-1.0) 0.6 mg/dL (0.2-1.0) Aspartate Amino Transf (AST/SGOT) 2923 U/L (15-37) 2204 U/L (15-37) Alanine Aminotransferase (ALT/SGPT) 818 U/L (16-63) 603 U/L (16-63) Alkaline Phosphatase 89 U/L (46-116) 71 U/L (46-116) Creatine Kinase > 776665 U/L (39-308) Troponin I Quantitative 0.352 ng/mL (0.000-0.055) Total Protein 7.0 g/dL (6.4-8.2) 6.2 g/dL (6.4-8.2) Albumin 3.4 g/dL (3.4-5.0) 2.6 g/dL (3.4-5.0) Albumin/Globulin Ratio 0.9 (1.0-1.7) 0.7 (1.0-1.7) Lipase 972 U/L (73-393) Ethyl Alcohol Level < 10 mg/dL (0-10) Urine Color Red Urine Clarity Clear Urine pH 6.0 Urine Specific Barnard 1.020 Urine Protein >=300 mg/dL (NEG-TRACE) Urine Glucose (UA) 100 mg/dL (NEG) Urine Ketones (Stick) Trace mg/dL (NEG) Urine Blood Large (NEG) Urine Nitrite Positive (NEG) Urine Bilirubin Moderate (NEG) Urine Urobilinogen Dipstick 0.2 mg/dL (0.2 mg/dL) Urine Leukocyte Esterase Small (NEG) Urine RBC 3-5 /HPF (0-2) Urine WBC Occ /HPF (0-4) Urine Squamous Epithelial Cells None /LPF Urine Amorphous Sediment Present /HPF Urine Bacteria 0 /HPF (0-FEW) Urine Random Creatinine 199.6 mg/dL (Not Establ.) Urine Opiates Screen Neg (NEG) Urine Methadone Screen Neg (NEG) Urine Barbiturates Neg (NEG) Urine Phencyclidine Screen Neg (NEG) Urine Amphetamine/Methamphetamine Pos (NEG) Urine Benzodiazepines Screen Neg (NEG) Urine Cocaine Screen Neg (NEG) Urine Cannabinoids Screen Neg (NEG) Urine Ethyl Alcohol Neg (NEG) Laboratory Tests Test 09/11/18 20:50 7/9/19 21:00 09/12/18 05:15 09/12/18 09:39 White Blood Count 17.0 x10^3/uL (4.0-11.0) 11.0 x10^3/uL (4.0-11.0) Red Blood Count 4.77 x10^6/uL (4.30-5.70) 4.37 x10^6/uL (4.30-5.70) Hemoglobin 13.9 g/dL (13.0-17.5) 12.8 g/dL (13.0-17.5) Hematocrit 39.0 % (39.0-53.0) 35.7 % (39.0-53.0) Mean Corpuscular Volume 82 fL (79-100) 82 fL (79-100) Mean Corpuscular Hemoglobin 29 pg (25-35) 29 pg (25-35) Mean Corpuscular Hemoglobin Concent 36 g/dL (31-37) 36 g/dL (31-37) Red Cell Distribution Width 13.0 % (11.5-14.5) 12.8 % (11.5-14.5) Platelet Count 320 x10^3/uL (140-400) 217 x10^3/uL (140-400) Neutrophils (%) (Auto) 92 % (31-73) 89 % (31-73) Lymphocytes (%) (Auto) 3 % (24-48) 7 % (24-48) Monocytes (%) (Auto) 4 % (0-9) 4 % (0-9) Eosinophils (%) (Auto) 0 % (0-3) 0 % (0-3) Basophils (%) (Auto) 0 % (0-3) 0 % (0-3) Neutrophils # (Auto) 15.7 x10^3uL (1.8-7.7) 9.7 x10^3uL (1.8-7.7) Lymphocytes # (Auto) 0.5 x10^3/uL (1.0-4.8) 0.8 x10^3/uL (1.0-4.8) Monocytes # (Auto) 0.7 x10^3/uL (0.0-1.1) 0.5 x10^3/uL (0.0-1.1) Eosinophils # (Auto) 0.0 x10^3/uL (0.0-0.7) 0.0 x10^3/uL (0.0-0.7) Basophils # (Auto) 0.0 x10^3/uL (0.0-0.2) 0.0 x10^3/uL (0.0-0.2) Segmented Neutrophils % 90 % (35-66) Lymphocytes % 5 % (24-48) Monocytes % 5 % (0-10) Platelet Estimate Adequate (ADEQUATE) Polychromasia Slight Anisocytosis Slight Prothrombin Time 14.7 SEC (11.7-14.0) Prothromb Time International Ratio 1.2 (0.8-1.1) Activated Partial Thromboplast Time 31 SEC (24-38) Sodium Level 112 mmol/L (136-145) 117 mmol/L (136-145) 117 mmol/L (136-145) Potassium Level 7.0 mmol/L (3.5-5.1) 5.6 mmol/L (3.5-5.1) 6.6 mmol/L (3.5-5.1) Chloride Level 73 mmol/L (98-107) 80 mmol/L (98-107) 81 mmol/L (98-107) Carbon Dioxide Level 12 mmol/L (21-32) 10 mmol/L (21-32) 9 mmol/L (21-32) Anion Gap 27 (6-14) 27 (6-14) 27 (6-14) Blood Urea Nitrogen 110 mg/dL (8-26) 112 mg/dL (8-26) 115 mg/dL (8-26) Creatinine 13.4 mg/dL (0.7-1.3) 13.2 mg/dL (0.7-1.3) 13.4 mg/dL (0.7-1.3) Estimated GFR (Cockcroft-Gault) 4.4 4.5 4.4 BUN/Creatinine Ratio 8 (6-20) 8 (6-20) Glucose Level 81 mg/dL (70-99) 70 mg/dL (70-99) 81 mg/dL (70-99) Lactic Acid Level 1.1 mmol/L (0.4-2.0) Calcium Level 5.4 mg/dL (8.5-10.1) 5.0 mg/dL (8.5-10.1) < 5.0 mg/dL (8.5-10.1) Magnesium Level 3.0 mg/dL (1.8-2.4) Total Bilirubin 0.9 mg/dL (0.2-1.0) 0.6 mg/dL (0.2-1.0) Aspartate Amino Transf (AST/SGOT) 2923 U/L (15-37) 2204 U/L (15-37) Alanine Aminotransferase (ALT/SGPT) 818 U/L (16-63) 603 U/L (16-63) Alkaline Phosphatase 89 U/L (46-116) 71 U/L (46-116) Creatine Kinase > 523587 U/L (39-308) Troponin I Quantitative 0.352 ng/mL (0.000-0.055) Total Protein 7.0 g/dL (6.4-8.2) 6.2 g/dL (6.4-8.2) Albumin 3.4 g/dL (3.4-5.0) 2.6 g/dL (3.4-5.0) Albumin/Globulin Ratio 0.9 (1.0-1.7) 0.7 (1.0-1.7) Lipase 972 U/L (73-393) Ethyl Alcohol Level < 10 mg/dL (0-10) Urine Color Red Urine Clarity Clear Urine pH 6.0 Urine Specific Barnard 1.020 Urine Protein >=300 mg/dL (NEG-TRACE) Urine Glucose (UA) 100 mg/dL (NEG) Urine Ketones (Stick) Trace mg/dL (NEG) Urine Blood Large (NEG) Urine Nitrite Positive (NEG) Urine Bilirubin Moderate (NEG) Urine Urobilinogen Dipstick 0.2 mg/dL (0.2 mg/dL) Urine Leukocyte Esterase Small (NEG) Urine RBC 3-5 /HPF (0-2) Urine WBC Occ /HPF (0-4) Urine Squamous Epithelial Cells None /LPF Urine Amorphous Sediment Present /HPF Urine Bacteria 0 /HPF (0-FEW) Urine Random Creatinine 199.6 mg/dL (Not Establ.) Urine Opiates Screen Neg (NEG) Urine Methadone Screen Neg (NEG) Urine Barbiturates Neg (NEG) Urine Phencyclidine Screen Neg (NEG) Urine Amphetamine/Methamphetamine Pos (NEG) Urine Benzodiazepines Screen Neg (NEG) Urine Cocaine Screen Neg (NEG) Urine Cannabinoids Screen Neg (NEG) Urine Ethyl Alcohol Neg (NEG) Images Images Ultrasound the abdomen limited. HISTORY: Elevated liver enzymes, abdominal pain Ultrasound was used to evaluate the abdomen. Pancreas is poorly visualized. Liver is difficult to completely evaluate. A focal liver lesion was not identified. Liver is not enlarged. Gallbladder was distended. Gallstones were not identified. There was mild sludge in the gallbladder. Gallbladder wall was upper normal in thickness. Right kidney was 12.4 cm in length without a mass or hydronephrosis. Aorta and vena cava were poorly evaluated. Common duct was normal measuring 3.6 mm. IMPRESSION: 1. Sludge noted in the gallbladder without gallstones. 2. Common duct normal in size. 3. Limited evaluation of the liver. Electronically signed by: Shahriar Charlton MD (09/11/2018 10:51 PM) [facility] Indication: Back pain with difficulty with urination Procedure: Multiplanar multisequence MRI images obtained through the lumbar spine without intravenous contrast. Comparison: None. Findings: Edema to the subcutaneous soft tissues posteriorly. No definite acute fracture. There is prominent epidural fat identified at L5 as well as within the sacral region. There is some regions of high T2 signal within the paraspinal musculature and right psoas. T12-L1: No disc bulge. No significant central canal or neuroforaminal stenosis. L1-L2: No disc bulge. No significant central canal or neuroforaminal stenosis. Facet hypertrophy. L2-L3: No disc bulge. No significant central canal or neuroforaminal stenosis. Facet hypertrophy. L3-L4: No disc bulge. No significant central canal or neuroforaminal stenosis. Facet hypertrophy with small joint effusion. Mild disc osteophyte complex. Thecal sac is 10 mm anterior to posterior. L4-L5: Posterior disc protrusion with osteophyte formation and annular tear suspected. Ligament of flavum and facet hypertrophy with facet joint effusions. Effacement of the bilateral lateral recess. Neural foramina patent. Mild central canal narrowing. L5-S1: Facet hypertrophy with facet joint effusions and ligamentum flavum hypertrophy. Large amount of epidural fat with small size of thecal sac at this level. Disc protrusion and annular tear. Mild right and mild to moderate left neural foraminal stenosis. Impression: There is evidence of degenerative changes the spine with disc protrusions and annular tears at L4-5 and L5-S1 as well as osteophyte formation at these vertebral body endplates and facet hypertrophy. This contributes to central canal and neural foraminal stenosis as detailed above. Epidural lipomatosis is identified most severe in the lower lumbar spine extending into the sacrum with resultant small size of the thecal sac. High T2 signal is identified within the right greater than left paraspinal musculature and psoas which can be seen with edema to these regions. Can be seen with causes such as myositis, muscle strain or neurological in nature from causes such as denervation associated edema. Electronically signed by: Edgardo Champagne MD (09/12/2018 12:04 AM) [facility] REASON: neuro changes, loss of rectal tone //repeats due to patients inability PROCEDURE: THORACIC SPINE WO CONTRAST INDICATION: Loss of rectal tone with concern for neurologic origin. COMPARISON: MRI lumbar earlier same day. TECHNIQUE: Multiplanar, multisequence MRI images are obtained through the thoracic spine without intravenous contrast. FINDINGS: There is patient motion on numerous sequences since the patient was having difficulty tolerating the examination at this time. At the upper thoracic spine on the T2 sagittal images there is apparent low T2 signal at the anterior aspect of the central canal however this is in a region of motion artifact. On the axial T2-weighted images there is also some low T2 signal intensity material at the anterior aspect of the central canal at the upper thoracic spine including at least the T2-T5 level. There is some suspected facet hypertrophy as well as well. Suspected disc protrusion or osteophyte formation at the T3-4 level on the right. There is some possible mild high T2 signal seen within the thoracic spinal cord with patchy appearance. Prominent epidural fat is identified throughout the thoracic spine. There is high T2 signal seen within the right paraspinal musculature within the thoracic region as well. IMPRESSION: 1. Very limited examination secondary to a large amount of patient motion. This examination can be repeated at a later time to better assess given this limitation. 2. At the upper thoracic spine there is some regions of low T2 signal at the anterior aspect of the central canal. Is difficult to tell this is artifactual in nature or if there is a pathologic process within the region such as soft tissue or blood within the anterior aspect of the central canal contributing to this appearance. Would repeat this examination when the patient can better tolerate. Would also recommend thin section axial T2 images when the patient can better tolerate. 3. There is some regions of possible high T2 signal within the spinal cord. Again this examination is limited secondary to motion artifact however recommend that the study be repeated with contrast to ensure that this does not persist to suggest edema and also to ensure that there is no foci of enhancement within the spinal cord to suggest causes such as demyelination 4. There is some suspected degenerative changes with facet hypertrophy as well as disc osteophyte complex. 5. There is some high T2 signal seen within the paraspinal musculature. Again this could be secondary to causes such as myositis, muscle tear or neurological in nature from causes such as denervation associated edema. 6. At the posterior elements of the thoracic spine at the mid thoracic spine there is some apparent edema identified which also involves the adjacent paraspinal musculature. Again there is a large amount of motion therefore difficult to assess this region however posttraumatic etiology such as fracture or soft tissue remains within the differential and further imaging is warranted. This could be obtained with repeat thoracic spine MRI when the patient can better tolerate and thoracic spine CT is an option to further evaluate for associated fracture. 7. Focus of high T2 signal is seen at the right upper thorax posterior medially as well. Could be secondary to some edema or fluid within the region and a follow-up CT could BE obtained to further evaluate to assess for fracture within the region. This is near the region of the transverse process as well as the right rib. 8. Report was called to the patient's nurse on the floor at the time of dictation. Electronically signed by: Edgardo Champagne MD (09/12/2018 6:30 AM) [facility] VTE Prophylaxis Ordered VTE Prophylaxis Devices: No VTE Pharmacological Prophylaxi: Contraindicated Assessment/Plan Assessment/Plan Impression: Hepatorenal syndrome WITH TRANSAMINITIS Elevated troponin SUSPECT Stress induced Urinary tract infection Methamphetamine abuse, SEVERE Hyperkalemia Hyponatremia hypocalcemia Urinary retention Rhabdomyolysis paresthesia evidence of degenerative changes the spine with disc protrusions and annular tears at L4-5 and L5-S1 as well as osteophyte formation at vertebral body endplates and facet hypertrophy. This contributes to central canal and neural foraminal stenosis Epidural lipomatosis is identified most severe in the lower lumbar spine extending into the sacrum with resultant small size of the thecal sac. High T2 signal is identified within the right greater than left paraspinal musculature and psoas which can be seen with edema to these regions. Can be seen with causes such as myositis, muscle strain or neurological in nature from causes such as denervation associated edema. Gallbladder was distended. Gallstones were not identified. There was mild sludge in the gallbladder. Gallbladder wall was upper normal in thic kness. burn to right index finger with cellulitis plan ADMIT ICU BED GI consult hepatitis dx panel, viral, acute nephrology consult neurosurgery consult Neurology consulted and lumbar puncture has been ordered. CARDIOLOGY CONSULT ionized ca ID CONSULT 113 MIN CC TIME MARIAM SINGH MD Sep 12, 2018 10:27
--- NOTE | 2018-09-12 10:32 | PDOC2 ---
CONSULT Date of Consult Date of Consult DATE: 09/12/18 TIME: 10:32 Reason for Consult Reason for Consult: Per ER provider" Hepatorenal Syndrome" Referring Physician Referring Physician: ER- Physician medical assistant prn Source Source: Chart review, Patient History of Present Illness Reason for Visit: The patient is a 28-year-old CM with Hx substance abuse including marijuana and meth. He was found smoking meth with a girl. He was noted to have numbness down his legs, became weak and reportedly fell. Denies shortness of breath, no cough, no fever, no chills. Per ER provider last night- "Pt stable, BUN, Cr elevated, Increased K- No EKG changes. Nephrology consulted for " Hepatorenal syndrome" Bladder scan showed urine retention of 900 ml, ruiz was Placed. Advised aggressive IV Hydration This morning on review of chart Pt noted to have very high CPK was >100,000,elevated LFT's, Low Bicarb and Hx of Meth use . He has received 3 lts of fluid . No CxR done in the ER He had thoracic spine MRI, which was abnormal for which Neurosurgery was consulted and they did not think that there is anything surgically needs to be done. Neurology has been consulted and the lumbar puncture has been ordered. Pt is being taken to Radiology for LP now . He is on room air and no obvious respiratory distress. Family History Family History: Hypertension Social History <1 pack per day ALCOHOL: occassional Drugs: Crystal meth Current Problem List Problem List Problems Medical Problems: (1) Elevated troponin Status: Acute (2) Hepatorenal syndrome Status: Acute (3) Hyperkalemia Status: Acute (4) Hyponatremia Status: Acute (5) Methamphetamine abuse Status: Acute (6) Neurological complaint Status: Acute (7) Rhabdomyolysis Status: Acute (8) Urinary retention Status: Acute (9) Urinary tract infection Status: Acute Current Medications Current Medications Current Medications Morphine Sulfate (Morphine Sulfate) 4 mg 1X ONCE IV Last administered on 09/11/18at 21:20; Start 09/11/18 at 21:30; Stop 09/11/18 at 21:31; Status DC Sodium Chloride 1,000 ml @ 1,000 mls/hr 1X ONCE IV Last administered on 09/11/18at 22:30; Start 09/11/18 at 22:30; Stop 09/11/18 at 23:29; Status DC Calcium Gluconate (Calcium Gluconate) 1,000 mg 1X ONCE IVP Last administered on 09/11/18at 22:43; Start 09/11/18 at 23:00; Stop 09/11/18 at 23:01; Status DC Insulin Human Regular (HumuLIN R VIAL) 10 unit 1X ONCE IV Last administered on 09/11/18 23:51; Start 09/11/18 at 23:00; Stop 09/11/18 at 23:01; Status DC Dextrose (Dextrose 50%-Water Syringe) 25 gm 1X ONCE IV Last administered on 09/11/18at 22:42; Start 09/11/18 at 23:00; Stop 09/11/18 at 23:01; Status DC Sodium Bicarbonate (Sodium Bicarb Adult 8.4% Syr) 50 meq 1X ONCE IV Last administered on 09/11/18 23:49; Start 09/11/18 at 23:00; Stop 09/11/18 at 23:01; Status DC Sodium Chloride 1,000 ml @ 1,000 mls/hr 1X ONCE IV Last administered on 09/11/18at 23:50; Start 09/11/18 at 23:00; Stop 09/11/18 at 23:59; Status DC Albuterol Sulfate (Ventolin Neb Soln) 10 mg 1X ONCE CONT NEB Last administered on 09/12/18at 00:30; Start 09/11/18 at 23:00; Stop 09/11/18 at 23:01; Status DC Ceftriaxone Sodium (Rocephin) 1 gm 1X ONCE IVP Last administered on 09/11/18 22:43; Start 09/11/18 at 23:00; Stop 09/11/18 at 23:01; Status DC Sodium Chloride 1,000 ml @ 1,000 mls/hr 1X ONCE IV Last administered on 09/12/18at 01:00; Start 09/12/18 at 01:00; Stop 09/12/18 at 01:59; Status DC Lorazepam (Ativan Inj) 0.5 mg PRN Q6HRS PRN IV ANXIETY / AGITATION Last administered on 09/12/18at 03:05; Start 09/12/18 at 01:15 Ondansetron HCl (Zofran) 4 mg PRN Q6HRS PRN IV NAUSEA/VOMITING 1ST CHOICE; Start 09/12/18 at 01:15; Stop 09/12/18 at 01:22; Status DC Sodium Chloride (Normal Saline Flush) 3 ml QSHIFT PRN IV AFTER MEDS AND BLOOD DRAWS; Start 09/12/18 at 01:15 Sodium Chloride 1,000 ml @ 175 mls/hr Q5H43M IV ; Start 09/12/18 at 01:08; Stop 09/12/18 at 01:23; Status DC Ondansetron HCl (Zofran) 4 mg PRN Q8HRS PRN IV NAUSEA/VOMITING 1ST CHOICE; Start 09/12/18 at 01:15; Stop 09/13/18 at 01:14 Sodium Chloride 1,000 ml @ 175 mls/hr Q5H43M IV ; Start 09/12/18 at 01:30; Stop 09/13/18 at 01:29 Morphine Sulfate (Morphine Sulfate) 4 mg PRN Q4HRS PRN IV SEVERE PAIN Last administered on 09/12/18at 09:18; Start 09/12/18 at 09:00 Sodium Bicarbonate (Sodium Bicarb Adult 8.4% Syr) 100 meq 1X ONCE IV Last administered on 09/12/18at 10:02; Start 09/12/18 at 10:00; Stop 09/12/18 at 10:01; Status DC Sodium Chloride 1,000 ml @ 1,000 mls/hr 1X ONCE IV Last administered on 09/12/18at 09:56; Start 09/12/18 at 10:00; Stop 09/12/18 at 10:59 Allergies Allergies: Coded Allergies: No Known Drug Allergies (Unverified , 09/11/18) ROS Review of System Per HPI Physical Exam Physical Exam GEN: NAD HEENT: Sclerae nonicteric, OM moist NECK: Supple. LUNGS: Clear, No accessory muscle use CARDIOVASCULAR: Regular rate. ABDOMEN: Soft, NT EXTREMITIES: edema in the right hand, LE edema trace SKIN-He has multiple punctate skin,lesions. He has some ulceration in one of the right hand finger. - Ruiz + NEURO- per Neurologist exam , AXOX3 Vital Signs Vital Signs Date Time Temp Pulse Resp B/P (MAP) Pulse Ox O2 Delivery O2 Flow Rate FiO2 09/12/18 09:18 20 Room Air 09/12/18 05:00 105 146/95 (112) 98 09/12/18 04:45 98.3 98.0 98.3 Assessment & Plan CARO - ATN2/2 Rhabdo , Meth use Uinary retention at Presentation, Decreased UP since Recd IVF, No signifciant improvement in renal function HD today Rhabdo- Very high CK Follow CPK, No significant diuresis with IVF HD for multiple Metabolic abnorm Hyperkalemia- HD Hyponatremia- some improvement with IVF Severe Metabolic acidosis- 2/2 all above Transaminitis Hypocalcemia- severe 2/2 Rhabdo Replace cautiously and Monitor closely for Hypercalcemia during recovery phase Discussed with Pt and RN at bedside Labs Labs Laboratory Tests Test 09/11/18 20:50 09/11/18 21:00 09/12/18 05:15 09/12/18 09:39 White Blood Count 17.0 x10^3/uL (4.0-11.0) 11.0 x10^3/uL (4.0-11.0) Red Blood Count 4.77 x10^6/uL (4.30-5.70) 4.37 x10^6/uL (4.30-5.70) Hemoglobin 13.9 g/dL (13.0-17.5) 12.8 g/dL (13.0-17.5) Hematocrit 39.0 % (39.0-53.0) 35.7 % (39.0-53.0) Mean Corpuscular Volume 82 fL (79-100) 82 fL (79-100) Mean Corpuscular Hemoglobin 29 pg (25-35) 29 pg (25-35) Mean Corpuscular Hemoglobin Concent 36 g/dL (31-37) 36 g/dL (31-37) Red Cell Distribution Width 13.0 % (11.5-14.5) 12.8 % (11.5-14.5) Platelet Count 320 x10^3/uL (140-400) 217 x10^3/uL (140-400) Neutrophils (%) (Auto) 92 % (31-73) 89 % (31-73) Lymphocytes (%) (Auto) 3 % (24-48) 7 % (24-48) Monocytes (%) (Auto) 4 % (0-9) 4 % (0-9) Eosinophils (%) (Auto) 0 % (0-3) 0 % (0-3) Basophils (%) (Auto) 0 % (0-3) 0 % (0-3) Neutrophils # (Auto) 15.7 x10^3uL (1.8-7.7) 9.7 x10^3uL (1.8-7.7) Lymphocytes # (Auto) 0.5 x10^3/uL (1.0-4.8) 0.8 x10^3/uL (1.0-4.8) Monocytes # (Auto) 0.7 x10^3/uL (0.0-1.1) 0.5 x10^3/uL (0.0-1.1) Eosinophils # (Auto) 0.0 x10^3/uL (0.0-0.7) 0.0 x10^3/uL (0.0-0.7) Basophils # (Auto) 0.0 x10^3/uL (0.0-0.2) 0.0 x10^3/uL (0.0-0.2) Segmented Neutrophils % 90 % (35-66) Lymphocytes % 5 % (24-48) Monocytes % 5 % (0-10) Platelet Estimate Adequate (ADEQUATE) Polychromasia Slight Anisocytosis Slight Prothrombin Time 14.7 SEC (11.7-14.0) Prothromb Time International Ratio 1.2 (0.8-1.1) Activated Partial Thromboplast Time 31 SEC (24-38) Sodium Level 112 mmol/L (136-145) 117 mmol/L (136-145) 117 mmol/L (136-145) Potassium Level 7.0 mmol/L (3.5-5.1) 5.6 mmol/L (3.5-5.1) 6.6 mmol/L (3.5-5.1) Chloride Level 73 mmol/L (98-107) 80 mmol/L (98-107) 81 mmol/L (98-107) Carbon Dioxide Level 12 mmol/L (21-32) 10 mmol/L (21-32) 9 mmol/L (21-32) Anion Gap 27 (6-14) 27 (6-14) 27 (6-14) Blood Urea Nitrogen 110 mg/dL (8-26) 112 mg/dL (8-26) 115 mg/dL (8-26) Creatinine 13.4 mg/dL (0.7-1.3) 13.2 mg/dL (0.7-1.3) 13.4 mg/dL (0.7-1.3) Estimated GFR (Cockcroft-Gault) 4.4 4.5 4.4 BUN/Creatinine Ratio 8 (6-20) 8 (6-20) Glucose Level 81 mg/dL (70-99) 70 mg/dL (70-99) 81 mg/dL (70-99) Lactic Acid Level 1.1 mmol/L (0.4-2.0) Calcium Level 5.4 mg/dL (8.5-10.1) 5.0 mg/dL (8.5-10.1) < 5.0 mg/dL (8.5-10.1) Magnesium Level 3.0 mg/dL (1.8-2.4) Total Bilirubin 0.9 mg/dL (0.2-1.0) 0.6 mg/dL (0.2-1.0) Aspartate Amino Transf (AST/SGOT) 2923 U/L (15-37) 2204 U/L (15-37) Alanine Aminotransferase (ALT/SGPT) 818 U/L (16-63) 603 U/L (16-63) Alkaline Phosphatase 89 U/L (46-116) 71 U/L (46-116) Creatine Kinase > 943916 U/L (39-308) Troponin I Quantitative 0.352 ng/mL (0.000-0.055) Total Protein 7.0 g/dL (6.4-8.2) 6.2 g/dL (6.4-8.2) Albumin 3.4 g/dL (3.4-5.0) 2.6 g/dL (3.4-5.0) Albumin/Globulin Ratio 0.9 (1.0-1.7) 0.7 (1.0-1.7) Lipase 972 U/L (73-393) Ethyl Alcohol Level < 10 mg/dL (0-10) Urine Color Red Urine Clarity Clear Urine pH 6.0 Urine Specific Bernie 1.020 Urine Protein >=300 mg/dL (NEG-TRACE) Urine Glucose (UA) 100 mg/dL (NEG) Urine Ketones (Stick) Trace mg/dL (NEG) Urine Blood Large (NEG) Urine Nitrite Positive (NEG) Urine Bilirubin Moderate (NEG) Urine Urobilinogen Dipstick 0.2 mg/dL (0.2 mg/dL) Urine Leukocyte Esterase Small (NEG) Urine RBC 3-5 /HPF (0-2) Urine WBC Occ /HPF (0-4) Urine Squamous Epithelial Cells None /LPF Urine Amorphous Sediment Present /HPF Urine Bacteria 0 /HPF (0-FEW) Urine Random Creatinine 199.6 mg/dL (Not Establ.) Urine Opiates Screen Neg (NEG) Urine Methadone Screen Neg (NEG) Urine Barbiturates Neg (NEG) Urine Phencyclidine Screen Neg (NEG) Urine Amphetamine/Methamphetamine Pos (NEG) Urine Benzodiazepines Screen Neg (NEG) Urine Cocaine Screen Neg (NEG) Urine Cannabinoids Screen Neg (NEG) Urine Ethyl Alcohol Neg (NEG) Thyroid Stimulating Hormone (TSH) 2.175 uIU/mL (0.358-3.74) Laboratory Tests Test 09/11/18 20:50 09/11/18 21:00 09/12/18 05:15 09/12/18 09:39 White Blood Count 17.0 x10^3/uL (4.0-11.0) 11.0 x10^3/uL (4.0-11.0) Red Blood Count 4.77 x10^6/uL (4.30-5.70) 4.37 x10^6/uL (4.30-5.70) Hemoglobin 13.9 g/dL (13.0-17.5) 12.8 g/dL (13.0-17.5) Hematocrit 39.0 % (39.0-53.0) 35.7 % (39.0-53.0) Mean Corpuscular Volume 82 fL (79-100) 82 fL (79-100) Mean Corpuscular Hemoglobin 29 pg (25-35) 29 pg (25-35) Mean Corpuscular Hemoglobin Concent 36 g/dL (31-37) 36 g/dL (31-37) Red Cell Distribution Width 13.0 % (11.5-14.5) 12.8 % (11.5-14.5) Platelet Count 320 x10^3/uL (140-400) 217 x10^3/uL (140-400) Neutrophils (%) (Auto) 92 % (31-73) 89 % (31-73) Lymphocytes (%) (Auto) 3 % (24-48) 7 % (24-48) Monocytes (%) (Auto) 4 % (0-9) 4 % (0-9) Eosinophils (%) (Auto) 0 % (0-3) 0 % (0-3) Basophils (%) (Auto) 0 % (0-3) 0 % (0-3) Neutrophils # (Auto) 15.7 x10^3uL (1.8-7.7) 9.7 x10^3uL (1.8-7.7) Lymphocytes # (Auto) 0.5 x10^3/uL (1.0-4.8) 0.8 x10^3/uL (1.0-4.8) Monocytes # (Auto) 0.7 x10^3/uL (0.0-1.1) 0.5 x10^3/uL (0.0-1.1) Eosinophils # (Auto) 0.0 x10^3/uL (0.0-0.7) 0.0 x10^3/uL (0.0-0.7) Basophils # (Auto) 0.0 x10^3/uL (0.0-0.2) 0.0 x10^3/uL (0.0-0.2) Segmented Neutrophils % 90 % (35-66) Lymphocytes % 5 % (24-48) Monocytes % 5 % (0-10) Platelet Estimate Adequate (ADEQUATE) Polychromasia Slight Anisocytosis Slight Prothrombin Time 14.7 SEC (11.7-14.0) Prothromb Time International Ratio 1.2 (0.8-1.1) Activated Partial Thromboplast Time 31 SEC (24-38) Sodium Level 112 mmol/L (136-145) 117 mmol/L (136-145) 117 mmol/L (136-145) Potassium Level 7.0 mmol/L (3.5-5.1) 5.6 mmol/L (3.5-5.1) 6.6 mmol/L (3.5-5.1) Chloride Level 73 mmol/L (98-107) 80 mmol/L (98-107) 81 mmol/L (98-107) Carbon Dioxide Level 12 mmol/L (21-32) 10 mmol/L (21-32) 9 mmol/L (21-32) Anion Gap 27 (6-14) 27 (6-14) 27 (6-14) Blood Urea Nitrogen 110 mg/dL (8-26) 112 mg/dL (8-26) 115 mg/dL (8-26) Creatinine 13.4 mg/dL (0.7-1.3) 13.2 mg/dL (0.7-1.3) 13.4 mg/dL (0.7-1.3) Estimated GFR (Cockcroft-Gault) 4.4 4.5 4.4 BUN/Creatinine Ratio 8 (6-20) 8 (6-20) Glucose Level 81 mg/dL (70-99) 70 mg/dL (70-99) 81 mg/dL (70-99) Lactic Acid Level 1.1 mmol/L (0.4-2.0) Calcium Level 5.4 mg/dL (8.5-10.1) 5.0 mg/dL (8.5-10.1) < 5.0 mg/dL (8.5-10.1) Magnesium Level 3.0 mg/dL (1.8-2.4) Total Bilirubin 0.9 mg/dL (0.2-1.0) 0.6 mg/dL (0.2-1.0) Aspartate Amino Transf (AST/SGOT) 2923 U/L (15-37) 2204 U/L (15-37) Alanine Aminotransferase (ALT/SGPT) 818 U/L (16-63) 603 U/L (16-63) Alkaline Phosphatase 89 U/L (46-116) 71 U/L (46-116) Creatine Kinase > 815086 U/L (39-308) Troponin I Quantitative 0.352 ng/mL (0.000-0.055) Total Protein 7.0 g/dL (6.4-8.2) 6.2 g/dL (6.4-8.2) Albumin 3.4 g/dL (3.4-5.0) 2.6 g/dL (3.4-5.0) Albumin/Globulin Ratio 0.9 (1.0-1.7) 0.7 (1.0-1.7) Lipase 972 U/L (73-393) Ethyl Alcohol Level < 10 mg/dL (0-10) Urine Color Red Urine Clarity Clear Urine pH 6.0 Urine Specific Bernie 1.020 Urine Protein >=300 mg/dL (NEG-TRACE) Urine Glucose (UA) 100 mg/dL (NEG) Urine Ketones (Stick) Trace mg/dL (NEG) Urine Blood Large (NEG) Urine Nitrite Positive (NEG) Urine Bilirubin Moderate (NEG) Urine Urobilinogen Dipstick 0.2 mg/dL (0.2 mg/dL) Urine Leukocyte Esterase Small (NEG) Urine RBC 3-5 /HPF (0-2) Urine WBC Occ /HPF (0-4) Urine Squamous Epithelial Cells None /LPF Urine Amorphous Sediment Present /HPF Urine Bacteria 0 /HPF (0-FEW) Urine Random Creatinine 199.6 mg/dL (Not Establ.) Urine Opiates Screen Neg (NEG) Urine Methadone Screen Neg (NEG) Urine Barbiturates Neg (NEG) Urine Phencyclidine Screen Neg (NEG) Urine Amphetamine/Methamphetamine Pos (NEG) Urine Benzodiazepines Screen Neg (NEG) Urine Cocaine Screen Neg (NEG) Urine Cannabinoids Screen Neg (NEG) Urine Ethyl Alcohol Neg (NEG) Thyroid Stimulating Hormone (TSH) 2.175 uIU/mL (0.358-3.74) Review All relevant outside records, renal labs, imaging studies, telemetry/EKG's were reviewed. LAVONNE RODAS MD Sep 12, 2018 10:32
--- NOTE | 2018-09-12 10:44 | PDOC2 ---
NEUROLOGY CONSULT Date of Admission Date of Admission DATE: 09/12/18 TIME: 10:36 Reason for Consult Reason for Consult: Leg weakness Referring Physician Referring Physician: Dr. Lofton Source Source: Chart review, Patient History of Present Illness History of Present Illness The patient is a 28-year-old right-handed male who got out of [facility] on 09/07 and decided to celebrate by smoking methamphetamine. He developed some pain and numbness in the legs and right hip. He fell. He presented to our emergency room yesterday. He is had MRI studies which are inhibited by movement artifacts. He denies any prior history of neurological issues. Past Medical History GI: GERD Psych: Anxiety, Addictions, Depression Past Surgical History Past Surgical History: No pertinent history Family History Family History: No pertinent hx Social History Social History Unemployed, uses methamphetamine, smokes occasionally, rare alcohol Current Medications Current Medications Current Medications Morphine Sulfate (Morphine Sulfate) 4 mg 1X ONCE IV Last administered on 09/11/18at 21:20; Start 09/11/18 at 21:30; Stop 09/11/18 at 21:31; Status DC Sodium Chloride 1,000 ml @ 1,000 mls/hr 1X ONCE IV Last administered on 09/11/18at 22:30; Start 09/11/18 at 22:30; Stop 09/11/18 at 23:29; Status DC Calcium Gluconate (Calcium Gluconate) 1,000 mg 1X ONCE IVP Last administered on 09/11/18at 22:43; Start 09/11/18 at 23:00; Stop 09/11/18 at 23:01; Status DC Insulin Human Regular (HumuLIN R VIAL) 10 unit 1X ONCE IV Last administered on 09/11/18at 23:51; Start 09/11/18 at 23:00; Stop 09/11/18 at 23:01; Status DC Dextrose (Dextrose 50%-Water Syringe) 25 gm 1X ONCE IV Last administered on 09/11/18at 22:42; Start 09/11/18 at 23:00; Stop 09/11/18 at 23:01; Status DC Sodium Bicarbonate (Sodium Bicarb Adult 8.4% Syr) 50 meq 1X ONCE IV Last administered on 09/11/18at 23:49; Start 09/11/18 at 23:00; Stop 09/11/18 at 23:01; Status DC Sodium Chloride 1,000 ml @ 1,000 mls/hr 1X ONCE IV Last administered on 09/11/18at 23:50; Start 09/11/18 at 23:00; Stop 09/11/18 at 23:59; Status DC Albuterol Sulfate (Ventolin Neb Soln) 10 mg 1X ONCE CONT NEB Last administered on 09/12/18at 00:30; Start 09/11/18 at 23:00; Stop 09/11/18 at 23:01; Status DC Ceftriaxone Sodium (Rocephin) 1 gm 1X ONCE IVP Last administered on 09/11/18at 2 2:43; Start 09/11/18 at 23:00; Stop 09/11/18 at 23:01; Status DC Sodium Chloride 1,000 ml @ 1,000 mls/hr 1X ONCE IV Last administered on 09/12/18at 01:00; Start 09/12/18 at 01:00; Stop 09/12/18 at 01:59; Status DC Lorazepam (Ativan Inj) 0.5 mg PRN Q6HRS PRN IV ANXIETY / AGITATION Last administered on 09/12/18at 03:05; Start 09/12/18 at 01:15 Ondansetron HCl (Zofran) 4 mg PRN Q6HRS PRN IV NAUSEA/VOMITING 1ST CHOICE; Start 09/12/18 at 01:15; Stop 09/12/18 at 01:22; Status DC Sodium Chloride (Normal Saline Flush) 3 ml QSHIFT PRN IV AFTER MEDS AND BLOOD DRAWS; Start 09/12/18 at 01:15 Sodium Chloride 1,000 ml @ 175 mls/hr Q5H43M IV ; Start 09/12/18 at 01:08; Stop 09/12/18 at 01:23; Status DC Ondansetron HCl (Zofran) 4 mg PRN Q8HRS PRN IV NAUSEA/VOMITING 1ST CHOICE; Start 09/12/18 at 01:15; Stop 09/13/18 at 01:14 Sodium Chloride 1,000 ml @ 175 mls/hr Q5H43M IV ; Start 09/12/18 at 01:30; Stop 09/13/18 at 01:29 Morphine Sulfate (Morphine Sulfate) 4 mg PRN Q4HRS PRN IV SEVERE PAIN Last administered on 09/12/18at 09:18; Start 09/12/18 at 09:00 Sodium Bicarbonate (Sodium Bicarb Adult 8.4% Syr) 100 meq 1X ONCE IV Last administered on 09/12/18at 10:02; Start 09/12/18 at 10:00; Stop 09/12/18 at 10:01; Status DC Sodium Chloride 1,000 ml @ 1,000 mls/hr 1X ONCE IV Last administered on 09/12/18at 09:56; Start 09/12/18 at 10:00; Stop 09/12/18 at 10:59 Allergies Allergies: Coded Allergies: No Known Drug Allergies (Unverified , 09/11/18) ROS Review of System Negative for fever, chills, weight loss, shortness of breath, chest pain, indigestion, hematochezia, melena, and dysuria. Full 14-point review of systems is negative. Physical Exam Physical Examination General: Well-developed, well-nourished white male in no acute distress HEENT: Normocephalic andatraumaticTemporal arteriespulsatile and nontender. Neck: Supple without bruit, no meningismus Musculoskeletal: Stability:see neurologic. Gait exam:see neurologic. Tone:see neurologic.Strength:see neurologic. Neurological: Mental Status:intact, orientation, memory, attention span/concentration, language, fund of knowledge normal. Cranial Nerves:Pupils equal and reactive to light, extraocular movements areintact, visual carbajal are full to confrontation. Facial sensation is normal. There is no facial asymmetry. Vestibulo-ocular reflex is intact. Palate elevates and tongue protrudes in midline. All other cranial related problems are negative except as mentioned before.Reflexes:2+ and symmetric with flexor plantar responses. Motor:In arms, 5/5 strength with normal tone and bulk. In legs, he says that he cannot move them, but I arrived with his knees flexed. He then says he cannot move his toes, but they do move, he says that he cannot wiggle them.. Coordination:Finger-nose finger is normal. Rapid alternating movements and fine finger movements are intact. Gait: Not tested. Sensory: inconsistent exam, at first he says of the cannot feel anything below his waist, then he admits he does have some pinprick sensation, the sensory level varies between approximately T7 and L1 Vitals VITALS Vital Signs Date Time Temp Pulse Resp B/P (MAP) Pulse Ox O2 Delivery O2 Flow Rate FiO2 09/12/18 09:18 20 Room Air 09/12/18 05:00 105 146/95 (112) 98 09/12/18 04:45 98.3 98.0 98.3 Labs Labs Laboratory Tests Test 09/11/18 20:50 09/11/18 21:00 09/12/18 05:15 09/12/18 09:39 White Blood Count 17.0 x10^3/uL (4.0-11.0) 11.0 x10^3/uL (4.0-11.0) Red Blood Count 4.77 x10^6/uL (4.30-5.70) 4.37 x10^6/uL (4.30-5.70) Hemoglobin 13.9 g/dL (13.0-17.5) 12.8 g/dL (13.0-17.5) Hematocrit 39.0 % (39.0-53.0) 35.7 % (39.0-53.0) Mean Corpuscular Volume 82 fL (79-100) 82 fL (79-100) Mean Corpuscular Hemoglobin 29 pg (25-35) 29 pg (25-35) Mean Corpuscular Hemoglobin Concent 36 g/dL (31-37) 36 g/dL (31-37) Red Cell Distribution Width 13.0 % (11.5-14.5) 12.8 % (11.5-14.5) Platelet Count 320 x10^3/uL (140-400) 217 x10^3/uL (140-400) Neutrophils (%) (Auto) 92 % (31-73) 89 % (31-73) Lymphocytes (%) (Auto) 3 % (24-48) 7 % (24-48) Monocytes (%) (Auto) 4 % (0-9) 4 % (0-9) Eosinophils (%) (Auto) 0 % (0-3) 0 % (0-3) Basophils (%) (Auto) 0 % (0-3) 0 % (0-3) Neutrophils # (Auto) 15.7 x10^3uL (1.8-7.7) 9.7 x10^3uL (1.8-7.7) Lymphocytes # (Auto) 0.5 x10^3/uL (1.0-4.8) 0.8 x10^3/uL (1.0-4.8) Monocytes # (Auto) 0.7 x10^3/uL (0.0-1.1) 0.5 x10^3/uL (0.0-1.1) Eosinophils # (Auto) 0.0 x10^3/uL (0.0-0.7) 0.0 x10^3/uL (0.0-0.7) Basophils # (Auto) 0.0 x10^3/uL (0.0-0.2) 0.0 x10^3/uL (0.0-0.2) Segmented Neutrophils % 90 % (35-66) Lymphocytes % 5 % (24-48) Monocytes % 5 % (0-10) Platelet Estimate Adequate (ADEQUATE) Polychromasia Slight Anisocytosis Slight Prothrombin Time 14.7 SEC (11.7-14.0) Prothromb Time International Ratio 1.2 (0.8-1.1) Activated Partial Thromboplast Time 31 SEC (24-38) Sodium Level 112 mmol/L (136-145) 117 mmol/L (136-145) 117 mmol/L (136-145) Potassium Level 7.0 mmol/L (3.5-5.1) 5.6 mmol/L (3.5-5.1) 6.6 mmol/L (3.5-5.1) Chloride Level 73 mmol/L (98-107) 80 mmol/L (98-107) 81 mmol/L (98-107) Carbon Dioxide Level 12 mmol/L (21-32) 10 mmol/L (21-32) 9 mmol/L (21-32) Anion Gap 27 (6-14) 27 (6-14) 27 (6-14) Blood Urea Nitrogen 110 mg/dL (8-26) 112 mg/dL (8-26) 115 mg/dL (8-26) Creatinine 13.4 mg/dL (0.7-1.3) 13.2 mg/dL (0.7-1.3) 13.4 mg/dL (0.7-1.3) Estimated GFR (Cockcroft-Gault) 4.4 4.5 4.4 BUN/Creatinine Ratio 8 (6-20) 8 (6-20) Glucose Level 81 mg/dL (70-99) 70 mg/dL (70-99) 81 mg/dL (70-99) Lactic Acid Level 1.1 mmol/L (0.4-2.0) Calcium Level 5.4 mg/dL (8.5-10.1) 5.0 mg/dL (8.5-10.1) < 5.0 mg/dL (8.5-10.1) Magnesium Level 3.0 mg/dL (1.8-2.4) Total Bilirubin 0.9 mg/dL (0.2-1.0) 0.6 mg/dL (0.2-1.0) Aspartate Amino Transf (AST/SGOT) 2923 U/L (15-37) 2204 U/L (15-37) Alanine Aminotransferase (ALT/SGPT) 818 U/L (16-63) 603 U/L (16-63) Alkaline Phosphatase 89 U/L (46-116) 71 U/L (46-116) Creatine Kinase > 829423 U/L (39-308) Troponin I Quantitative 0.352 ng/mL (0.000-0.055) Total Protein 7.0 g/dL (6.4-8.2) 6.2 g/dL (6.4-8.2) Albumin 3.4 g/dL (3.4-5.0) 2.6 g/dL (3.4-5.0) Albumin/Globulin Ratio 0.9 (1.0-1.7) 0.7 (1.0-1.7) Lipase 972 U/L (73-393) Ethyl Alcohol Level < 10 mg/dL (0-10) Urine Color Red Urine Clarity Clear Urine pH 6.0 Urine Specific [place] 1.020 Urine Protein >=300 mg/dL (NEG-TRACE) Urine Glucose (UA) 100 mg/dL (NEG) Urine Ketones (Stick) Trace mg/dL (NEG) Urine Blood Large (NEG) Urine Nitrite Positive (NEG) Urine Bilirubin Moderate (NEG) Urine Urobilinogen Dipstick 0.2 mg/dL (0.2 mg/dL) Urine Leukocyte Esterase Small (NEG) Urine RBC 3-5 /HPF (0-2) Urine WBC Occ /HPF (0-4) Urine Squamous Epithelial Cells None /LPF Urine Amorphous Sediment Present /HPF Urine Bacteria 0 /HPF (0-FEW) Urine Random Creatinine 199.6 mg/dL (Not Establ.) Urine Opiates Screen Neg (NEG) Urine Methadone Screen Neg (NEG) Urine Barbiturates Neg (NEG) Urine Phencyclidine Screen Neg (NEG) Urine Amphetamine/Methamphetamine Pos (NEG) Urine Benzodiazepines Screen Neg (NEG) Urine Cocaine Screen Neg (NEG) Urine Cannabinoids Screen Neg (NEG) Urine Ethyl Alcohol Neg (NEG) Vitamin B12 Level 430 pg/mL (247-911) Thyroid Stimulating Hormone (TSH) 2.175 uIU/mL (0.358-3.74) Laboratory Tests Test 09/11/18 20:50 09/11/18 21:00 09/12/18 05:15 09/12/18 09:39 White Blood Count 17.0 x10^3/uL (4.0-11.0) 11.0 x10^3/uL (4.0-11.0) Red Blood Count 4.77 x10^6/uL (4.30-5.70) 4.37 x10^6/uL (4.30-5.70) Hemoglobin 13.9 g/dL (13.0-17.5) 12.8 g/dL (13.0-17.5) Hematocrit 39.0 % (39.0-53.0) 35.7 % (39.0-53.0) Mean Corpuscular Volume 82 fL (79-100) 82 fL (79-100) Mean Corpuscular Hemoglobin 29 pg (25-35) 29 pg (25-35) Mean Corpuscular Hemoglobin Concent 36 g/dL (31-37) 36 g/dL (31-37) Red Cell Distribution Width 13.0 % (11.5-14.5) 12.8 % (11.5-14.5) Platelet Count 320 x10^3/uL (140-400) 217 x10^3/uL (140-400) Neutrophils (%) (Auto) 92 % (31-73) 89 % (31-73) Lymphocytes (%) (Auto) 3 % (24-48) 7 % (24-48) Monocytes (%) (Auto) 4 % (0-9) 4 % (0-9) Eosinophils (%) (Auto) 0 % (0-3) 0 % (0-3) Basophils (%) (Auto) 0 % (0-3) 0 % (0-3) Neutrophils # (Auto) 15.7 x10^3uL (1.8-7.7) 9.7 x10^3uL (1.8-7.7) Lymphocytes # (Auto) 0.5 x10^3/uL (1.0-4.8) 0.8 x10^3/uL (1.0-4.8) Monocytes # (Auto) 0.7 x10^3/uL (0.0-1.1) 0.5 x10^3/uL (0.0-1.1) Eosinophils # (Auto) 0.0 x10^3/uL (0.0-0.7) 0.0 x10^3/uL (0.0-0.7) Basophils # (Auto) 0.0 x10^3/uL (0.0-0.2) 0.0 x10^3/uL (0.0-0.2) Segmented Neutrophils % 90 % (35-66) Lymphocytes % 5 % (24-48) Monocytes % 5 % (0-10) Platelet Estimate Adequate (ADEQUATE) Polychromasia Slight Anisocytosis Slight Prothrombin Time 14.7 SEC (11.7-14.0) Prothromb Time International Ratio 1.2 (0.8-1.1) Activated Partial Thromboplast Time 31 SEC (24-38) Sodium Level 112 mmol/L (136-145) 117 mmol/L (136-145) 117 mmol/L (136-145) Potassium Level 7.0 mmol/L (3.5-5.1) 5.6 mmol/L (3.5-5.1) 6.6 mmol/L (3.5-5.1) Chloride Level 73 mmol/L (98-107) 80 mmol/L (98-107) 81 mmol/L (98-107) Carbon Dioxide Level 12 mmol/L (21-32) 10 mmol/L (21-32) 9 mmol/L (21-32) Anion Gap 27 (6-14) 27 (6-14) 27 (6-14) Blood Urea Nitrogen 110 mg/dL (8-26) 112 mg/dL (8-26) 115 mg/dL (8-26) Creatinine 13.4 mg/dL (0.7-1.3) 13.2 mg/dL (0.7-1.3) 13.4 mg/dL (0.7-1.3) Estimated GFR (Cockcroft-Gault) 4.4 4.5 4.4 BUN/Creatinine Ratio 8 (6-20) 8 (6-20) Glucose Level 81 mg/dL (70-99) 70 mg/dL (70-99) 81 mg/dL (70-99) Lactic Acid Level 1.1 mmol/L (0.4-2.0) Calcium Level 5.4 mg/dL (8.5-10.1) 5.0 mg/dL (8.5-10.1) < 5.0 mg/dL (8.5-10.1) Magnesium Level 3.0 mg/dL (1.8-2.4) Total Bilirubin 0.9 mg/dL (0.2-1.0) 0.6 mg/dL (0.2-1.0) Aspartate Amino Transf (AST/SGOT) 2923 U/L (15-37) 2204 U/L (15-37) Alanine Aminotransferase (ALT/SGPT) 818 U/L (16-63) 603 U/L (16-63) Alkaline Phosphatase 89 U/L (46-116) 71 U/L (46-116) Creatine Kinase > 498944 U/L (39-308) Troponin I Quantitative 0.352 ng/mL (0.000-0.055) Total Protein 7.0 g/dL (6.4-8.2) 6.2 g/dL (6.4-8.2) Albumin 3.4 g/dL (3.4-5.0) 2.6 g/dL (3.4-5.0) Albumin/Globulin Ratio 0.9 (1.0-1.7) 0.7 (1.0-1.7) Lipase 972 U/L (73-393) Ethyl Alcohol Level < 10 mg/dL (0-10) Urine Color Red Urine Clarity Clear Urine pH 6.0 Urine Specific [place] 1.020 Urine Protein >=300 mg/dL (NEG-TRACE) Urine Glucose (UA) 100 mg/dL (NEG) Urine Ketones (Stick) Trace mg/dL (NEG) Urine Blood Large (NEG) Urine Nitrite Positive (NEG) Urine Bilirubin Moderate (NEG) Urine Urobilinogen Dipstick 0.2 mg/dL (0.2 mg/dL) Urine Leukocyte Esterase Small (NEG) Urine RBC 3-5 /HPF (0-2) Urine WBC Occ /HPF (0-4) Urine Squamous Epithelial Cells None /LPF Urine Amorphous Sediment Present /HPF Urine Bacteria 0 /HPF (0-FEW) Urine Random Creatinine 199.6 mg/dL (Not Establ.) Urine Opiates Screen Neg (NEG) Urine Methadone Screen Neg (NEG) Urine Barbiturates Neg (NEG) Urine Phencyclidine Screen Neg (NEG) Urine Amphetamine/Methamphetamine Pos (NEG) Urine Benzodiazepines Screen Neg (NEG) Urine Cocaine Screen Neg (NEG) Urine Cannabinoids Screen Neg (NEG) Urine Ethyl Alcohol Neg (NEG) Vitamin B12 Level 430 pg/mL (247-911) Thyroid Stimulating Hormone (TSH) 2.175 uIU/mL (0.358-3.74) Images Images I reviewed the cervical and thoracic MRI studies. There is some motion degradation, but I see no gross abnormality. The lumbar MRI images are very clear, I agree with the radiology report. I do not see any abnormalities of the conus UMBAR SPINE WO CONTRAST Indication: Back pain with difficulty with urination Procedure: Multiplanar multisequence MRI images obtained through the lumbar spine without intravenous contrast. Comparison: None. Findings: Edema to the subcutaneous soft tissues posteriorly. No definite acute fracture. There is prominent epidural fat identified at L5 as well as within the sacral region. There is some regions of high T2 signal within the paraspinal musculature and right psoas. T12-L1: No disc bulge. No significant central canal or neuroforaminal stenosis. L1-L2: No disc bulge. No significant central canal or neuroforaminal stenosis. Facet hypertrophy. L2-L3: No disc bulge. No significant central canal or neuroforaminal stenosis. Facet hypertrophy. L3-L4: No disc bulge. No significant central canal or neuroforaminal stenosis. Facet hypertrophy with small joint effusion. Mild disc osteophyte complex. Thecal sac is 10 mm anterior to posterior. L4-L5: Posterior disc protrusion with osteophyte formation and annular tear suspected. Ligament of flavum and facet hypertrophy with facet joint effusions. Effacement of the bilateral lateral recess. Neural foramina patent. Mild central canal narrowing. L5-S1: Facet hypertrophy with facet joint effusions and ligamentum flavum hypertrophy. Large amount of epidural fat with small size of thecal sac at this level. Disc protrusion and annular tear. Mild right and mild to moderate left neural foraminal stenosis. Impression: There is evidence of degenerative changes the spine with disc protrusions and annular tears at L4-5 and L5-S1 as well as osteophyte formation at these vertebral body endplates and facet hypertrophy. This contributes to central canal and neural foraminal stenosis as detailed above. Epidural lipomatosis is identified most severe in the lower lumbar spine extending into the sacrum with resultant small size of the thecal sac. High T2 signal is identified within the right greater than left paraspinal musculature and psoas which can be seen with edema to these regions. Can be seen with causes such as myositis, muscle strain or neurological in nature from causes such as denervation associated edema. Assessment/Plan Assessment/Plan Impression: Bilateral leg weakness and numbness, examination points to nonorganic features. He deftly of course has rhabdomyolysis and some edema of the psoas muscle on the MRI, so this may all be musculoskeletal from his fall after ingesting methamphetamines. There is still a possibility of transverse myelitis. Sensory level as I document above is very variable, all the way from lower thoracic to upper lumbar at times. I find no evidence of cervical or intracranial disease. Recommendations: Hold on repeat MRI studies Lumbar puncture, discuss risks, benefits, alternatives. Support of ICU care for rhabdomyolysis, renal insufficiency, and other medical problems. Physical and occupational therapy. Thank you for letting me help with the patient's care. CASPER MONTGOMERY MD Sep 12, 2018 10:44
[2018-09-12] MEDS ORDERED: LIDOCAINE WITH 8.4% SOD BICARB 3 ML DISP.SYRIN. ONE ×2 (11:07→13:48)
[2018-09-12] MEDS ORDERED: CALCIUM GLUCONATE 1,000 MG/10 ML VIAL. IVP ONE (12:00)
--- NOTE | 2018-09-12 12:00 | NUR ---
LP done in xray dept. with Ativan given during proc and able to compl;ete the proc. Will keep pt <30 degrees for 2 hr. NS boluses infusing. Consent signed for Temp dialysis cath and hemodialysis. Pt verbalized understanding of these proc. Allowed this nurse to call his mother or father who live in [facility]. No answer. Sips of water tolerated. Was released from [facility] on Monday.
[2018-09-12 12:12] LABS: CSF PROTEIN 53.2 mg/dL (15.0-45.0)
--- NOTE | 2018-09-12 12:17 | RAD ---
Single view of the chest. 09/12/2018 9:47 AM Indication: Chest pain Comparison: None Findings: There is no focal consolidation. There is no pleural effusion or pneumothorax. The cardiomediastinal silhouette and pulmonary vasculature are within normal limits. No acute osseous abnormalities are seen. Impression: No evidence of acute cardiopulmonary process. Electronically signed by: Bertrand Sloan MD (09/12/2018 12:14 PM) [id number]
--- NOTE | 2018-09-12 12:33 | RAD ---
MRI Cervical Spine Without Contrast History: Loss of rectal tone Technique: Limited noncontrast MR imaging was performed of the cervical spine. Patient could not tolerate further imaging, only sagittal T2 sequence and markedly motion degraded sagittal STIR sequences acquired. Comparison: None Findings: Exam is limited due to motion and also limited sequences able to be obtained. Cervical cord caliber is within normal limits without defined or expansile signal abnormality. No significant cervical spinal stenosis is identified. There is no significant focal posterior disc abnormality of cervical spine, likely mild narrowing 9 to 10 mm at C3-4 on developmental basis. Neural foramina are poorly characterized due to motion without any axial images, likely overall adequate. IMPRESSION: 1. Exam is limited due to motion as well as very limited sequences able to be obtained. There is no significant cervical spinal stenosis, likely mild narrowing at C3-4 on developmental basis. No defined or expansile cervical cord signal abnormality is identified. Electronically signed by: Min Mccray MD (09/12/2018 12:30 PM) [id number]
[2018-09-12] MEDS: silver sulfADIAZINE 1% CREAM 25GM TUBE. TP SCH ×2 (12:49→20:27)
--- NOTE | 2018-09-12 12:52 | RAD ---
Examination: LUMBAR PUNCTURE History: Back pain. Transverse myelitis. Comparison/Correlation: MRI lumbar spine 09/11/2018 Findings: Risks and benefits of fluoroscopically guided lumbar puncture were discussed with the patient and informed consent was obtained. Patient was placed in the ESTONIAN position. Cleansing with Betadine at the L3-4 after initial localization with fluoroscopic imaging was performed. This level was selected based on review of the MRI of the lumbar spine performed the previous day which demonstrated epidural lipomatosis of the more inferior level of the lumbar spinal canal with associated narrowing thecal sac diameter. Fluoroscopy was utilized for 0.6 minutes. A total of 2 images were acquired. 4 cc 1 percent lidocaine was administered along the expected course of the spinal needle track. A 20-gauge spinal needle was advanced under fluoroscopic guidance into the thecal sac. 11.5 cc clear CSF was withdrawn and sent to the lab in 4 separate vials. The patient tolerated procedure well without immediate complications. Impression: Successful lumbar puncture under fluoroscopic guidance. Specimens sent to lab. Electronically signed by: Misael Loza MD (09/12/2018 12:49 PM) [facility]
[2018-09-12] MEDS ORDERED: cefTRIAXone IV Push 1 GM VIAL. IVP SCH (13:00)
[2018-09-12 13:16] LABS: CSF CLARITY CLEAR; CSF COLOR COLORLESS
[2018-09-12 13:17] LABS: CSF RBC COUNT 2 /cmm (Not Established); CSF WBC COUNT 3 /cmm (Not Established)
--- NOTE | 2018-09-12 13:19 | PDOC2 ---
GI CONSULT Reason For Consult: Transaminitis HPI: HPI: 28 y/o male who was [facility], then did meth, then had weakness/numbness in legs, fell, and came to ER. Has multiple lab abnormalities. Had multiple imaging studies and LP. H/o GERD on pantoprazole QD. Reports h/o "stomach ulcer" on EGD in [place], [place] ~2 years ago. "They told me to take it easy." No dysphagia. No n/v. No abd pain. No diarrhea, hematochezia, or melena. H/o intermittent constipation that is untreated. Last stooled on Monday. No weight loss. No previous colonoscopy. Thinks someone told him once there was something abnormal with his liver - details unclear, he says "they did an x-ray." Also unclear if any GB or pancreas history - I asked and he said "yeah, they told me I had 'em and needed to watch 'em." PMH: PMH: GERD, PUD, substance abuse lumbar puncture FH: Family History: Other (mother and father - back surgeries) Social History: Smoke: <1 pack per day ALCOHOL: occassional Drugs: Crystal meth, Other (h/o IVDU) ROS: Per HPI. Vitals: Vitals: Vital Signs Date Time Temp Pulse Resp B/P (MAP) Pulse Ox O2 Delivery O2 Flow Rate FiO2 09/12/18 09:18 20 Room Air 09/12/18 05:00 105 146/95 (112) 98 09/12/18 04:45 98.3 98.0 98.3 Labs: Labs: Laboratory Tests Test 09/11/18 20:50 09/11/18 21:00 09/12/18 05:15 09/12/18 09:39 White Blood Count 17.0 x10^3/uL (4.0-11.0) 11.0 x10^3/uL (4.0-11.0) Red Blood Count 4.77 x10^6/uL (4.30-5.70) 4.37 x10^6/uL (4.30-5.70) Hemoglobin 13.9 g/dL (13.0-17.5) 12.8 g/dL (13.0-17.5) Hematocrit 39.0 % (39.0-53.0) 35.7 % (39.0-53.0) Mean Corpuscular Volume 82 fL (79-100) 82 fL (79-100) Mean Corpuscular Hemoglobin 29 pg (25-35) 29 pg (25-35) Mean Corpuscular Hemoglobin Concent 36 g/dL (31-37) 36 g/dL (31-37) Red Cell Distribution Width 13.0 % (11.5-14.5) 12.8 % (11.5-14.5) Platelet Count 320 x10^3/uL (140-400) 217 x10^3/uL (140-400) Neutrophils (%) (Auto) 92 % (31-73) 89 % (31-73) Lymphocytes (%) (Auto) 3 % (24-48) 7 % (24-48) Monocytes (%) (Auto) 4 % (0-9) 4 % (0-9) Eosinophils (%) (Auto) 0 % (0-3) 0 % (0-3) Basophils (%) (Auto) 0 % (0-3) 0 % (0-3) Neutrophils # (Auto) 15.7 x10^3uL (1.8-7.7) 9.7 x10^3uL (1.8-7.7) Lymphocytes # (Auto) 0.5 x10^3/uL (1.0-4.8) 0.8 x10^3/uL (1.0-4.8) Monocytes # (Auto) 0.7 x10^3/uL (0.0-1.1) 0.5 x10^3/uL (0.0-1.1) Eosinophils # (Auto) 0.0 x10^3/uL (0.0-0.7) 0.0 x10^3/uL (0.0-0.7) Basophils # (Auto) 0.0 x10^3/uL (0.0-0.2) 0.0 x10^3/uL (0.0-0.2) Segmented Neutrophils % 90 % (35-66) Lymphocytes % 5 % (24-48) Monocytes % 5 % (0-10) Platelet Estimate Adequate (ADEQUATE) Polychromasia Slight Anisocytosis Slight Prothrombin Time 14.7 SEC (11.7-14.0) Prothromb Time International Ratio 1.2 (0.8-1.1) Activated Partial Thromboplast Time 31 SEC (24-38) Sodium Level 112 mmol/L (136-145) 117 mmol/L (136-145) 117 mmol/L (136-145) Potassium Level 7.0 mmol/L (3.5-5.1) 5.6 mmol/L (3.5-5.1) 6.6 mmol/L (3.5-5.1) Chloride Level 73 mmol/L (98-107) 80 mmol/L (98-107) 81 mmol/L (98-107) Carbon Dioxide Level 12 mmol/L (21-32) 10 mmol/L (21-32) 9 mmol/L (21-32) Anion Gap 27 (6-14) 27 (6-14) 27 (6-14) Blood Urea Nitrogen 110 mg/dL (8-26) 112 mg/dL (8-26) 115 mg/dL (8-26) Creatinine 13.4 mg/dL (0.7-1.3) 13.2 mg/dL (0.7-1.3) 13.4 mg/dL (0.7-1.3) Estimated GFR (Cockcroft-Gault) 4.4 4.5 4.4 BUN/Creatinine Ratio 8 (6-20) 8 (6-20) Glucose Level 81 mg/dL (70-99) 70 mg/dL (70-99) 81 mg/dL (70-99) Lactic Acid Level 1.1 mmol/L (0.4-2.0) Calcium Level 5.4 mg/dL (8.5-10.1) 5.0 mg/dL (8.5-10.1) < 5.0 mg/dL (8.5-10.1) Magnesium Level 3.0 mg/dL (1.8-2.4) Total Bilirubin 0.9 mg/dL (0.2-1.0) 0.6 mg/dL (0.2-1.0) Aspartate Amino Transf (AST/SGOT) 2923 U/L (15-37) 2204 U/L (15-37) Alanine Aminotransferase (ALT/SGPT) 818 U/L (16-63) 603 U/L (16-63) Alkaline Phosphatase 89 U/L (46-116) 71 U/L (46-116) Creatine Kinase > 141834 U/L (39-308) Troponin I Quantitative 0.352 ng/mL (0.000-0.055) Total Protein 7.0 g/dL (6.4-8.2) 6.2 g/dL (6.4-8.2) Albumin 3.4 g/dL (3.4-5.0) 2.6 g/dL (3.4-5.0) Albumin/Globulin Ratio 0.9 (1.0-1.7) 0.7 (1.0-1.7) Lipase 972 U/L (73-393) Ethyl Alcohol Level < 10 mg/dL (0-10) Urine Color Red Urine Clarity Clear Urine pH 6.0 Urine Specific [place] 1.020 Urine Protein >=300 mg/dL (NEG-TRACE) Urine Glucose (UA) 100 mg/dL (NEG) Urine Ketones (Stick) Trace mg/dL (NEG) Urine Blood Large (NEG) Urine Nitrite Positive (NEG) Urine Bilirubin Moderate (NEG) Urine Urobilinogen Dipstick 0.2 mg/dL (0.2 mg/dL) Urine Leukocyte Esterase Small (NEG) Urine RBC 3-5 /HPF (0-2) Urine WBC Occ /HPF (0-4) Urine Squamous Epithelial Cells None /LPF Urine Amorphous Sediment Present /HPF Urine Bacteria 0 /HPF (0-FEW) Urine Random Creatinine 199.6 mg/dL (Not Establ.) Urine Opiates Screen Neg (NEG) Urine Methadone Screen Neg (NEG) Urine Barbiturates Neg (NEG) Urine Phencyclidine Screen Neg (NEG) Urine Amphetamine/Methamphetamine Pos (NEG) Urine Benzodiazepines Screen Neg (NEG) Urine Cocaine Screen Neg (NEG) Urine Cannabinoids Screen Neg (NEG) Urine Ethyl Alcohol Neg (NEG) Erythrocyte Sedimentation Rate 35 (0-15) Vitamin B12 Level 430 pg/mL (247-911) Thyroid Stimulating Hormone (TSH) 2.175 uIU/mL (0.358-3.74) Test 09/12/18 11:19 CSF Glucose 52 mg/dL (37-70) CSF Total Protein 53.2 mg/dL (15.0-45.0) Allergies: Coded Allergies: No Known Drug Allergies (Unverified , 09/11/18) Medications: Current Medications Medications (Trade) Dose Ordered Sig/Mirela Route PRN Reason Start Time Stop Time Status Last Admin Dose Admin Morphine Sulfate (Morphine Sulfate) 4 mg 1X ONCE IV 09/11/18 21:30 09/11/18 21:31 DC 09/11/18 21:20 Sodium Chloride 1,000 ml @ 1,000 mls/hr 1X ONCE IV 09/11/18 22:30 09/11/18 23:29 DC 09/11/18 22:30 Calcium Gluconate (Calcium Gluconate) 1,000 mg 1X ONCE IVP 09/11/18 23:00 09/11/18 23:01 DC 09/11/18 22:43 Insulin Human Regular (HumuLIN R VIAL) 10 unit 1X ONCE IV 09/11/18 23:00 09/11/18 23:01 DC 09/11/18 23:51 Dextrose (Dextrose 50%-Water Syringe) 25 gm 1X ONCE IV 09/11/18 23:00 09/11/18 23:01 DC 09/11/18 22:42 Sodium Bicarbonate (Sodium Bicarb Adult 8.4% Syr) 50 meq 1X ONCE IV 09/11/18 23:00 09/11/18 23:01 DC 09/11/18 23:49 Sodium Chloride 1,000 ml @ 1,000 mls/hr 1X ONCE IV 09/11/18 23:00 09/11/18 23:59 DC 09/11/18 23:50 Albuterol Sulfate (Ventolin Neb Soln) 10 mg 1X ONCE CONT NEB 09/11/18 23:00 09/11/18 23:01 DC 09/12/18 00:30 Ceftriaxone Sodium (Rocephin) 1 gm 1X ONCE IVP 09/11/18 23:00 09/11/18 23:01 DC 09/11/18 22:43 Sodium Chloride 1,000 ml @ 1,000 mls/hr 1X ONCE IV 09/12/18 01:00 09/12/18 01:59 DC 09/12/18 01:00 Lorazepam (Ativan Inj) 0.5 mg PRN Q6HRS PRN IV ANXIETY / AGITATION 09/12/18 01:15 09/12/18 11:00 Morphine Sulfate (Morphine Sulfate) 4 mg PRN Q4HRS PRN IV SEVERE PAIN 09/12/18 09:00 09/12/18 09:18 Sodium Bicarbonate (Sodium Bicarb Adult 8.4% Syr) 100 meq 1X ONCE IV 09/12/18 10:00 09/12/18 10:01 DC 09/12/18 10:02 Sodium Chloride 1,000 ml @ 1,000 mls/hr 1X ONCE IV 09/12/18 10:00 09/12/18 10:59 DC 09/12/18 09:56 Ceftriaxone Sodium (Rocephin) 1 gm Q24H IVP 09/12/18 13:00 09/12/18 12:49 Silver Sulfadiazine (Silvadene) 1 elinor BID TP 09/12/18 13:00 09/12/18 12:49 Sodium Chloride 1,000 ml @ 1,000 mls/hr 1X ONCE IV 09/12/18 12:45 09/12/18 13:44 09/12/18 12:47 Imaging: Imaging: L-spine MRI Impression: There is evidence of degenerative changes the spine with disc protrusions and annular tears at L4-5 and L5-S1 as well as osteophyte formation at these vertebral body endplates and facet hypertrophy. This contributes to central canal and neural foraminal stenosis as detailed above. Epidural lipomatosis is identified most severe in the lower lumbar spine extending into the sacrum with resultant small size of the thecal sac. High T2 signal is identified within the right greater than left paraspinal musculature and psoas which can be seen with edema to these regions. Can be seen with causes such as myositis, muscle strain or neurological in nature from causes such as denervation associated edema. RUQ US IMPRESSION: 1. Sludge noted in the gallbladder without gallstones. 2. Common duct normal in size. 3. Limited evaluation of the liver. T-spine MRI IMPRESSION: 1. Very limited examination secondary to a large amount of patient motion. This examination can be repeated at a later time to better assess given this limitation. 2. At the upper thoracic spine there is some regions of low T2 signal at the anterior aspect of the central canal. Is difficult to tell this is artifactual in nature or if there is a pathologic process within the region such as soft tissue or blood within the anterior aspect of the central canal contributing to this appearance. Would repeat this examination when the patient can better tolerate. Would also recommend thin section axial T2 images when the patient can better tolerate. 3. There is some regions of possible high T2 signal within the spinal cord. Again this examination is limited secondary to motion artifact however recommend that the study be repeated with contrast to ensure that this does not persist to suggest edema and also to ensure that there is no foci of enhancement within the spinal cord to suggest causes such as demyelinat ion 4. There is some suspected degenerative changes with facet hypertrophy as well as disc osteophyte complex. 5. There is some high T2 signal seen within the paraspinal musculature. Again this could be secondary to causes such as myositis, muscle tear or neurological in nature from causes such as denervation associated edema. 6. At the posterior elements of the thoracic spine at the mid thoracic spine there is some apparent edema identified which also involves the adjacent paraspinal musculature. Again there is a large amount of motion therefore difficult to assess this region however posttraumatic etiology such as fracture or soft tissue remains within the differential and further imaging is warranted. This could be obtained with repeat thoracic spine MRI when the patient can better tolerate and thoracic spine CT is an option to further evaluate for associated fracture. 7. Focus of high T2 signal is seen at the right upper thorax posterior medially as well. Could be secondary to some edema or fluid within the region and a follow-up CT could BE obtained to further evaluate to assess for fracture within the region. This is near the region of the transverse process as well as the right rib. C-spine MRI IMPRESSION: 1. Exam is limited due to motion as well as very limited sequences able to be obtained. There is no significant cervical spinal stenosis, likely mild narrowing at C3-4 on developmental basis. No defined or expansile cervical cord signal abnormality is identified. CXR Impression: No evidence of acute cardiopulmonary process. PE: GEN: NAD HEENT: Atraumatic, PERRL LUNGS: room air, clear anteriorly HEART: tachycardic ABD: NABS, S/ND/NT EXTREMITY: No edema SKIN: wound/burn on index finger NEURO/PSYCH: A & O 3, poor historian A/P: A/P: +meth/substance abuse LE weakness, fall - ?related to meth, neuro ruling out transverse myelitis Leukocytosis (resolved), rhabdo, CARO, hyponatremia, hyperkalemia, hypocalcemia, UTI Transaminitis (better), mildly elevated lipase (no symptoms of pancreatitis) GERD, h/o PUD - on PPI, says had EGD in [place], [place] ~2 years ago CRC screen - average risk H/o intermittent constipation GB sludge -- US unrevealing, AST and ALT improved, bili and AP remain WNL. Hepatitis panel ordered per primary. 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 LARRY HARDY Sep 12, 2018 13:19
[2018-09-12] MEDS: POLYETHYLENE GLYCOL 3350 17 GM PACKET. PO SCH (13:30)
[2018-09-12] MEDS ORDERED: PANTOPRAZOLE 40 MG TABLET.DR. PO SCH (13:30)
--- NOTE | 2018-09-12 13:30 | NUR ---
Pt becoming increasing agitated and less cooperative. Ativan and Haldol given as IR is at bedside to place temp dialysis cath. Pt stated he had IV cocaine a few days ago. Dr Pimentel and Rolly updated. Mother called back earlier and updated and was tearful on phone. Lives in [place]
[2018-09-12] MEDS ORDERED: LIDOCAINE WITH 8.4% SOD BICARB 3 ML DISP.SYRIN. INJ ONE (14:15)
[2018-09-12] MEDS ORDERED: ATROPINE 0.5 MG/5 ML DISP.SYRINGE. IV PRN (14:15)
[2018-09-12] MEDS ORDERED: IV NORMAL SALINE 500ML BAG 500 ML IV PRN (14:15)
[2018-09-12] MEDS: HALOPERIDOL LACTATE 5 MG/ML VIAL. IVP PRN (14:22)
--- NOTE | 2018-09-12 14:28 | NUR ---
Dialysis placement per Dr Sloan and confirmed. retail event assistant notified. Pt sleeping O2 sat 97 on RA. No urine. VSS
[2018-09-12] MEDS: DEXMEDETOMIDINE 200 MCG in IV NORMAL SALINE 50ML 48 ML IV PRN ×3 (14:47→20:27)
--- NOTE | 2018-09-12 14:48 | RAD ---
Chest radiograph 09/12/2018 12:00 AM INDICATION: Catheter placement COMPARISON: September 12, 2018 TECHNIQUE: Frontal view of the chest is provided. FINDINGS: The cardiomediastinal silhouette is within normal limits. Double lumen right IJ central venous catheter is identified with the distal tip projecting over the right atrium. There are no pleural effusions. Mild pulmonary vascular congestion. There is no pneumothorax. The lungs are clear. No significant osseous abnormality is identified. IMPRESSION: Mild pulmonary vascular congestion as may be seen with fluid overload state. Right IJ double lumen central venous catheter is identified at the distal tip projecting over the right atrium. Electronically signed by: Mikala Yin MD (09/12/2018 2:45 PM) [id number]
--- NOTE | 2018-09-12 14:54 | NUR ---
SS following for discharge planning. SS reviewed pt chart. Per chart pt is homeless and is currently on room air. Pt is self pay. [facility] following for self pay status. SS will continue to follow for discharge planning.
[2018-09-12] MEDS ORDERED: IV NORMAL SALINE 1000ML BAG 1,000 ML IV PRN ×2 (15:08)
[2018-09-12] MEDS ORDERED: diphenhydrAMINE 50 MG/ML VIAL IV PRN ×2 (15:15)
[2018-09-12] MEDS ORDERED: DIALYSIS PATIENT. MC PRN (15:15)
[2018-09-12] MEDS ORDERED: PANT20TA2 PO (16:03)
[2018-09-12] MEDS ORDERED: BUSP30TA PO (16:03)
[2018-09-12] MEDS ORDERED: OLAN20TA3 PO (16:03)
[2018-09-12 18:39] LABS: CREATININE 8.6 mg/dL (0.7-1.3); GFR 7.3; POTASSIUM 3.5 mmol/L (3.5-5.1)
[2018-09-12 18:41] LABS: CALCIUM 5.6 mg/dL (8.5-10.1)
[2018-09-13] VITALS (22 sets, daily range): BP systolic 96–135; BP diastolic 43–73
[2018-09-13] MEDS: DEXMEDETOMIDINE 200 MCG in IV NORMAL SALINE 50ML 48 ML IV PRN ×10 (00:26→23:21)
[2018-09-13] MEDS: HALOPERIDOL LACTATE 5 MG/ML VIAL. IVP PRN (00:35)
[2018-09-13] MEDS: MORPHINE SULFATE 4 MG/ML VIAL. IV PRN ×5 (00:36→23:46)
[2018-09-13 06:32] LABS: BASO % 0 % (0-3); EOS # 0.1 x10^3/uL (0.0-0.7); EOS % 1 % (0-3); HEMATOCRIT 30.6 % (39.0-53.0); HEMOGLOBIN 10.9 g/dL (13.0-17.5); LYMPH # 0.8 x10^3/uL (1.0-4.8); LYMPH % 11 % (24-48); MEAN CORPUSCULAR HEMOGLOBIN 30 pg (25-35); MEAN CORPUSCULAR HGB CONC 36 g/dL (31-37); MEAN CORPUSCULAR VOLUME 83 fL (79-100); MONO # 0.4 x10^3/uL (0.0-1.1); MONO % 6 % (0-9); NEUT # 6.2 x10^3/uL (1.8-7.7); NEUT % 82 % (31-73); PLATELET COUNT 148 x10^3/uL (140-400); RED BLOOD COUNT 3.69 x10^6/uL (4.30-5.70); RED CELL DISTRIBUTION WIDTH 13.1 % (11.5-14.5); WHITE BLOOD COUNT 7.6 x10^3/uL (4.0-11.0)
[2018-09-13 06:59] LABS: ALBUMIN/GLOBULIN RATIO 0.6 (1.0-1.7); ALK PHOS 65 U/L (46-116); ALT (SGPT) 412 U/L (16-63); ANION GAP 17 (6-14); BLOOD UREA NITROGEN 84 mg/dL (8-26); BUN/CREATININE RATIO 8 (6-20); CARBON DIOXIDE 20 mmol/L (21-32); CHLORIDE 87 mmol/L (98-107); CREATININE 10.4 mg/dL (0.7-1.3); GFR 5.9; GLUCOSE 91 mg/dL (70-99); MAGNESIUM 2.1 mg/dL (1.8-2.4); POTASSIUM 4.3 mmol/L (3.5-5.1); SODIUM 124 mmol/L (136-145); TOTAL BILIRUBIN 0.5 mg/dL (0.2-1.0); TOTAL PROTEIN 5.2 g/dL (6.4-8.2)
[2018-09-13 07:26] LABS: AST (SGOT) 1017 U/L (15-37)
[2018-09-13 07:29] LABS: CALCIUM 5.5 mg/dL (8.5-10.1)
[2018-09-13] MEDS: PANTOPRAZOLE IV PUSH 40 MG VIAL. IVP SCH (07:45)
--- NOTE | 2018-09-13 08:39 | PDOC ---
PROGRESS NOTES History of Present Illness History of Present Illness VTE Prophylaxis Ordered VTE Prophylaxis Devices: No VTE Pharmacological Prophylaxi: Contraindicated Assessment/Plan ARF from the rhabdomyolysis. GB sludge of questionable signifi cance. TRANSAMINITIS Elevated troponin SUSPECT Stress induced Urinary tract infection Methamphetamine abuse, SEVERE Hyperkalemia Hyponatremia hypocalcemia Urinary retention Rhabdomyolysis Hypocalcemia- severe 2/2 Rhabdo paresthesia evidence of degenerative changes the spine with disc protrusions and annular tears at L4-5 and L5-S1 as well as osteophyte formation at vertebral body endplates and facet hypertrophy. This contributes to central canal and neural foraminal stenosis Epidural lipomatosis is identified most severe in the lower lumbar spine extending into the sacrum with resultant small size of the thecal sac. High T2 signal is identified within the right greater than left paraspinal musculature and psoas which can be seen with edema to these regions. Can be seen with causes such as myositis, muscle strain or neurological in nature from causes such as denervation associated edema. Gallbladder was distended. Gallstones were not identified. There was mild sludge in the gallbladder. Gallbladder wall was upper normal in thickness. 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 WOUND// DEBRIDEMENT? POOR PROGNOSIS due to severe drug abuse per my chart review 36 MIN CC TIME Vitals Vitals Vital Signs Date Time Temp Pulse Resp B/P (MAP) Pulse Ox O2 Delivery O2 Flow Rate FiO2 09/13/18 06:00 69 16 104/49 (67) 96 Room Air 09/13/18 04:00 98.1 98.1 Physical Exam General: Cooperative, moderate distress Heart: Regular rate, Normal S1, No murmurs Lungs: Clear Abdomen: Normal bowel sounds, Soft, No hepatosplenomegaly, Other (obese, no fluid wave) Extremities: No cyanosis, Other (burn to right index finger APPEARS OLD associated cellulitis) Labs LABS Single view of the chest. 09/12/2018 9:47 AM Indication: Chest pain Comparison: None Findings: There is no focal consolidation. There is no pleural effusion or pneumothorax. The cardiomediastinal silhouette and pulmonary vasculature are within normal limits. No acute osseous abnormalities are seen. Impression: No evidence of acute cardiopulmonary process. Electronically signed by: Bertrand Sloan MD (09/12/2018 12:14 PM) [facility] SPEC #: [id number] IFRAH: 09/12/18 STATUS: RES REQ #: [id number] RECD: 09/12/[address]: EMERY FLANNERY APRN SOURCE: BLOOD ENTR: 09/11/[address]: LETY GUZMÁN SPDESC: ORDERED: BCULT -- Procedure Result BLOOD CULTURE Preliminary NO GROWTH AFTER 1 DAY SPEC #: [id number] IFRAH: 09/12/18 STATUS: COMP REQ #: [id number] RECD: 09/12/[address]: IRIS DAVID MD SOURCE: CSF ENTR: 09/12/[address]: CASPER MONTGOMERY MD SPDESC: JOSÉ,ARUNDHALAVONNE RODRÍGUEZ MD, MD, FRANK P MD KHAN,EITAN CHANEY,EMERY Paul MD ORDERED: GS,CSF Procedure Result GRAM STAIN,CSF Final WBCS OCCASIONAL ORGANISMS NONE SEEN ----- HAND RIGHT 3V 09/13/2018 7:17 AM INDICATION: [place] COMPARISON: None available. TECHNIQUE: 3 views the right hand are provided. FINDINGS: Phalanges are contracted limiting evaluation. There is no acute fracture or dislocation. Bone mineralization is within normal limits. Joint spaces are maintained. Regional soft tissues are within normal limits. There is no soft tissue gas or osseous erosion. IMPRESSION: No acute fracture or dislocation although evaluation is limited by positioning. Electronically signed by: Mikala Yin MD (09/13/2018 9:44 AM) [id number] Laboratory Tests Test 09/12/18 09:39 09/12/18 11:19 09/12/18 15:15 09/12/18 18:00 Erythrocyte Sedimentation Rate 35 (0-15) Sodium Level 117 mmol/L (136-145) 127 mmol/L (136-145) Potassium Level 6.6 mmol/L (3.5-5.1) 3.5 mmol/L (3.5-5.1) Chloride Level 81 mmol/L (98-107) 88 mmol/L (98-107) Carbon Dioxide Level 9 mmol/L (21-32) 21 mmol/L (21-32) Anion Gap 27 (6-14) 18 (6-14) Blood Urea Nitrogen 115 mg/dL (8-26) 69 mg/dL (8-26) Creatinine 13.4 mg/dL (0.7-1.3) 8.6 mg/dL (0.7-1.3) Estimated GFR (Cockcroft-Gault) 4.4 7.3 Glucose Level 81 mg/dL (70-99) 70 mg/dL (70-99) Calcium Level < 5.0 mg/dL (8.5-10.1) 5.6 mg/dL (8.5-10.1) Vitamin B12 Level 430 pg/mL (247-911) Thyroid Stimulating Hormone (TSH) 2.175 uIU/mL (0.358-3.74) CSF Tube Number 4 CSF Volume 3.0 CSF Color Colorless CSF Clarity Clear CSF WBC 3 /cmm (Not Established) CSF RBC 2 /cmm (Not Established) CSF Glucose 52 mg/dL (37-70) CSF Total Protein 53.2 mg/dL (15.0-45.0) Hepatitis A IgM Antibody Nonreactive (Nonreactive) Hepatitis B Surface Antigen Nonreactive (Nonreactive) Hepatitis B Core Total Antibody Nonreactive (Nonreactive) Hepatitis B Core IgM Antibody Nonreactive (Nonreactive) Hepatitis C IgG Antibody Equivocal (Nonreactive) Test 09/12/18 21:20 09/13/18 06:15 Ionized Calcium 0.70 mmol/L (1.13-1.32) White Blood Count 7.6 x10^3/uL (4.0-11.0) Red Blood Count 3.69 x10^6/uL (4.30-5.70) Hemoglobin 10.9 g/dL (13.0-17.5) Hematocrit 30.6 % (39.0-53.0) Mean Corpuscular Volume 83 fL (79-100) Mean Corpuscular Hemoglobin 30 pg (25-35) Mean Corpuscular Hemoglobin Concent 36 g/dL (31-37) Red Cell Distribution Width 13.1 % (11.5-14.5) Platelet Count 148 x10^3/uL (140-400) Neutrophils (%) (Auto) 82 % (31-73) Lymphocytes (%) (Auto) 11 % (24-48) Monocytes (%) (Auto) 6 % (0-9) Eosinophils (%) (Auto) 1 % (0-3) Basophils (%) (Auto) 0 % (0-3) Neutrophils # (Auto) 6.2 x10^3/uL (1.8-7.7) Lymphocytes # (Auto) 0.8 x10^3/uL (1.0-4.8) Monocytes # (Auto) 0.4 x10^3/uL (0.0-1.1) Eosinophils # (Auto) 0.1 x10^3/uL (0.0-0.7) Basophils # (Auto) 0.0 x10^3/uL (0.0-0.2) Sodium Level 124 mmol/L (136-145) Potassium Level 4.3 mmol/L (3.5-5.1) Chloride Level 87 mmol/L (98-107) Carbon Dioxide Level 20 mmol/L (21-32) Anion Gap 17 (6-14) Blood Urea Nitrogen 84 mg/dL (8-26) Creatinine 10.4 mg/dL (0.7-1.3) Estimated GFR (Cockcroft-Gault) 5.9 BUN/Creatinine Ratio 8 (6-20) Glucose Level 91 mg/dL (70-99) Calcium Level 5.5 mg/dL (8.5-10.1) Magnesium Level 2.1 mg/dL (1.8-2.4) Total Bilirubin 0.5 mg/dL (0.2-1.0) Aspartate Amino Transf (AST/SGOT) 1017 U/L (15-37) Alanine Aminotransferase (ALT/SGPT) 412 U/L (16-63) Alkaline Phosphatase 65 U/L (46-116) Total Protein 5.2 g/dL (6.4-8.2) Albumin 2.0 g/dL (3.4-5.0) Albumin/Globulin Ratio 0.6 (1.0-1.7) Assessment and Plan Assessmemt and Plan Problems Medical Problems: (1) Elevated troponin Status: Acute (2) Hepatorenal syndrome Status: Acute (3) Hyperkalemia Status: Acute (4) Hyponatremia Status: Acute (5) Methamphetamine abuse Status: Acute (6) Neurological complaint Status: Acute (7) Rhabdomyolysis Status: Acute (8) Urinary retention Status: Acute (9) Urinary tract infection Status: Acute Past Medical History Past Medical History: Anxiety, Depression Past Surgical History: No Surgical History Smoking: Quit Greater Than 1 Year Alcohol Use: None Drug Use: Methamphetamine FAMILY HX ANXIETY Family History Family History: Hypertension Social History Smoke: <1 pack per day ALCOHOL: occassional Drugs: Crystal meth, Other (smokes his meth) Current Problem List Problem List Problems Medical Problems: (1) Elevated troponin Status: Acute (2) Hepatorenal syndrome Status: Acute (3) Hyperkalemia Status: Acute (4) Hyponatremia Status: Acute (5) Methamphetamine abuse Status: Acute (6) Neurological complaint Status: Acute (7) Rhabdomyolysis Status: Acute (8) Urinary retention Status: Acute (9) Urinary tract infection Status: Acute Comment Review of Relevant I have reviewed the following items ashlie (where applicable) has been applied. Labs Laboratory Tests Test 09/11/18 20:50 09/11/18 21:00 09/12/18 05:15 09/12/18 07:00 White Blood Count 17.0 x10^3/uL (4.0-11.0) 11.0 x10^3/uL (4.0-11.0) Red Blood Count 4.77 x10^6/uL (4.30-5.70) 4.37 x10^6/uL (4.30-5.70) Hemoglobin 13.9 g/dL (13.0-17.5) 12.8 g/dL (13.0-17.5) Hematocrit 39.0 % (39.0-53.0) 35.7 % (39.0-53.0) Mean Corpuscular Volume 82 fL (79-100) 82 fL (79-100) Mean Corpuscular Hemoglobin 29 pg (25-35) 29 pg (25-35) Mean Corpuscular Hemoglobin Concent 36 g/dL (31-37) 36 g/dL (31-37) Red Cell Distribution Width 13.0 % (11.5-14.5) 12.8 % (11.5-14.5) Platelet Count 320 x10^3/uL (140-400) 217 x10^3/uL (140-400) Neutrophils (%) (Auto) 92 % (31-73) 89 % (31-73) Lymphocytes (%) (Auto) 3 % (24-48) 7 % (24-48) Monocytes (%) (Auto) 4 % (0-9) 4 % (0-9) Eosinophils (%) (Auto) 0 % (0-3) 0 % (0-3) Basophils (%) (Auto) 0 % (0-3) 0 % (0-3) Neutrophils # (Auto) 15.7 x10^3uL (1.8-7.7) 9.7 x10^3uL (1.8-7.7) Lymphocytes # (Auto) 0.5 x10^3/uL (1.0-4.8) 0.8 x10^3/uL (1.0-4.8) Monocytes # (Auto) 0.7 x10^3/uL (0.0-1.1) 0.5 x10^3/uL (0.0-1.1) Eosinophils # (Auto) 0.0 x10^3/uL (0.0-0.7) 0.0 x10^3/uL (0.0-0.7) Basophils # (Auto) 0.0 x10^3/uL (0.0-0.2) 0.0 x10^3/uL (0.0-0.2) Segmented Neutrophils % 90 % (35-66) Lymphocytes % 5 % (24-48) Monocytes % 5 % (0-10) Platelet Estimate Adequate (ADEQUATE) Polychromasia Slight Anisocytosis Slight Prothrombin Time 14.7 SEC (11.7-14.0) Prothromb Time International Ratio 1.2 (0.8-1.1) Activated Partial Thromboplast Time 31 SEC (24-38) Sodium Level 112 mmol/L (136-145) 117 mmol/L (136-145) Potassium Level 7.0 mmol/L (3.5-5.1) 5.6 mmol/L (3.5-5.1) Chloride Level 73 mmol/L (98-107) 80 mmol/L (98-107) Carbon Dioxide Level 12 mmol/L (21-32) 10 mmol/L (21-32) Anion Gap 27 (6-14) 27 (6-14) Blood Urea Nitrogen 110 mg/dL (8-26) 112 mg/dL (8-26) Creatinine 13.4 mg/dL (0.7-1.3) 13.2 mg/dL (0.7-1.3) Estimated GFR (Cockcroft-Gault) 4.4 4.5 BUN/Creatinine Ratio 8 (6-20) 8 (6-20) Glucose Level 81 mg/dL (70-99) 70 mg/dL (70-99) Lactic Acid Level 1.1 mmol/L (0.4-2.0) Calcium Level 5.4 mg/dL (8.5-10.1) 5.0 mg/dL (8.5-10.1) Magnesium Level 3.0 mg/dL (1.8-2.4) Total Bilirubin 0.9 mg/dL (0.2-1.0) 0.6 mg/dL (0.2-1.0) Aspartate Amino Transf (AST/SGOT) 2923 U/L (15-37) 2204 U/L (15-37) Alanine Aminotransferase (ALT/SGPT) 818 U/L (16-63) 603 U/L (16-63) Alkaline Phosphatase 89 U/L (46-116) 71 U/L (46-116) Creatine Kinase > 781329 U/L (39-308) Troponin I Quantitative 0.352 ng/mL (0.000-0.055) Total Protein 7.0 g/dL (6.4-8.2) 6.2 g/dL (6.4-8.2) Albumin 3.4 g/dL (3.4-5.0) 2.6 g/dL (3.4-5.0) Albumin/Globulin Ratio 0.9 (1.0-1.7) 0.7 (1.0-1.7) Lipase 972 U/L (73-393) Ethyl Alcohol Level < 10 mg/dL (0-10) Urine Color Red Urine Clarity Clear Urine pH 6.0 Urine Specific [place] 1.020 Urine Protein >=300 mg/dL (NEG-TRACE) Urine Glucose (UA) 100 mg/dL (NEG) Urine Ketones (Stick) Trace mg/dL (NEG) Urine Blood Large (NEG) Urine Nitrite Positive (NEG) Urine Bilirubin Moderate (NEG) Urine Urobilinogen Dipstick 0.2 mg/dL (0.2 mg/dL) Urine Leukocyte Esterase Small (NEG) Urine RBC 3-5 /HPF (0-2) Urine WBC Occ /HPF (0-4) Urine Squamous Epithelial Cells None /LPF Urine Amorphous Sediment Present /HPF Urine Bacteria 0 /HPF (0-FEW) Urine Random Creatinine 199.6 mg/dL (Not Establ.) Urine Random Sodium <60 mmol/L (Not Estab.) Urine Opiates Screen Neg (NEG) Urine Methadone Screen Neg (NEG) Urine Barbiturates Neg (NEG) Urine Phencyclidine Screen Neg (NEG) Urine Amphetamine/Methamphetamine Pos (NEG) Urine Benzodiazepines Screen Neg (NEG) Urine Cocaine Screen Neg (NEG) Urine Cannabinoids Screen Neg (NEG) Urine Ethyl Alcohol Neg (NEG) Nasal Screen MRSA (PCR) Positive (Negative) Test 09/12/18 09:39 09/12/18 11:19 09/12/18 15:15 09/12/18 18:00 Erythrocyte Sedimentation Rate 35 (0-15) Sodium Level 117 mmol/L (136-145) 127 mmol/L (136-145) Potassium Level 6.6 mmol/L (3.5-5.1) 3.5 mmol/L (3.5-5.1) Chloride Level 81 mmol/L (98-107) 88 mmol/L (98-107) Carbon Dioxide Level 9 mmol/L (21-32) 21 mmol/L (21-32) Anion Gap 27 (6-14) 18 (6-14) Blood Urea Nitrogen 115 mg/dL (8-26) 69 mg/dL (8-26) Creatinine 13.4 mg/dL (0.7-1.3) 8.6 mg/dL (0.7-1.3) Estimated GFR (Cockcroft-Gault) 4.4 7.3 Glucose Level 81 mg/dL (70-99) 70 mg/dL (70-99) Calcium Level < 5.0 mg/dL (8.5-10.1) 5.6 mg/dL (8.5-10.1) Vitamin B12 Level 430 pg/mL (247-911) Thyroid Stimulating Hormone (TSH) 2.175 uIU/mL (0.358-3.74) CSF Tube Number 4 CSF Volume 3.0 CSF Color Colorless CSF Clarity Clear CSF WBC 3 /cmm (Not Established) CSF RBC 2 /cmm (Not Established) CSF Glucose 52 mg/dL (37-70) CSF Total Protein 53.2 mg/dL (15.0-45.0) Hepatitis A IgM Antibody Nonreactive (Nonreactive) Hepatitis B Surface Antigen Nonreactive (Nonreactive) Hepatitis B Core Total Antibody Nonreactive (Nonreactive) Hepatitis B Core IgM Antibody Nonreactive (Nonreactive) Hepatitis C IgG Antibody Equivocal (Nonreactive) Test 09/12/18 21:20 09/13/18 06:15 Ionized Calcium 0.70 mmol/L (1.13-1.32) White Blood Count 7.6 x10^3/uL (4.0-11.0) Red Blood Count 3.69 x10^6/uL (4.30-5.70) Hemoglobin 10.9 g/dL (13.0-17.5) Hematocrit 30.6 % (39.0-53.0) Mean Corpuscular Volume 83 fL (79-100) Mean Corpuscular Hemoglobin 30 pg (25-35) Mean Corpuscular Hemoglobin Concent 36 g/dL (31-37) Red Cell Distribution Width 13.1 % (11.5-14.5) Platelet Count 148 x10^3/uL (140-400) Neutrophils (%) (Auto) 82 % (31-73) Lymphocytes (%) (Auto) 11 % (24-48) Monocytes (%) (Auto) 6 % (0-9) Eosinophils (%) (Auto) 1 % (0-3) Basophils (%) (Auto) 0 % (0-3) Neutrophils # (Auto) 6.2 x10^3/uL (1.8-7.7) Lymphocytes # (Auto) 0.8 x10^3/uL (1.0-4.8) Monocytes # (Auto) 0.4 x10^3/uL (0.0-1.1) Eosinophils # (Auto) 0.1 x10^3/uL (0.0-0.7) Basophils # (Auto) 0.0 x10^3/uL (0.0-0.2) Sodium Level 124 mmol/L (136-145) Potassium Level 4.3 mmol/L (3.5-5.1) Chloride Level 87 mmol/L (98-107) Carbon Dioxide Level 20 mmol/L (21-32) Anion Gap 17 (6-14) Blood Urea Nitrogen 84 mg/dL (8-26) Creatinine 10.4 mg/dL (0.7-1.3) Estimated GFR (Cockcroft-Gault) 5.9 BUN/Creatinine Ratio 8 (6-20) Glucose Level 91 mg/dL (70-99) Calcium Level 5.5 mg/dL (8.5-10.1) Magnesium Level 2.1 mg/dL (1.8-2.4) Total Bilirubin 0.5 mg/dL (0.2-1.0) Aspartate Amino Transf (AST/SGOT) 1017 U/L (15-37) Alanine Aminotransferase (ALT/SGPT) 412 U/L (16-63) Alkaline Phosphatase 65 U/L (46-116) Total Protein 5.2 g/dL (6.4-8.2) Albumin 2.0 g/dL (3.4-5.0) Albumin/Globulin Ratio 0.6 (1.0-1.7) Laboratory Tests Test 09/12/18 09:39 09/12/18 11:19 09/12/18 15:15 09/12/18 18:00 Erythrocyte Sedimentation Rate 35 (0-15) Sodium Level 117 mmol/L (136-145) 127 mmol/L (136-145) Potassium Level 6.6 mmol/L (3.5-5.1) 3.5 mmol/L (3.5-5.1) Chloride Level 81 mmol/L (98-107) 88 mmol/L (98-107) Carbon Dioxide Level 9 mmol/L (21-32) 21 mmol/L (21-32) Anion Gap 27 (6-14) 18 (6-14) Blood Urea Nitrogen 115 mg/dL (8-26) 69 mg/dL (8-26) Creatinine 13.4 mg/dL (0.7-1.3) 8.6 mg/dL (0.7-1.3) Estimated GFR (Cockcroft-Gault) 4.4 7.3 Glucose Level 81 mg/dL (70-99) 70 mg/dL (70-99) Calcium Level < 5.0 mg/dL (8.5-10.1) 5.6 mg/dL (8.5-10.1) Vitamin B12 Level 430 pg/mL (247-911) Thyroid Stimulating Hormone (TSH) 2.175 uIU/mL (0.358-3.74) CSF Tube Number 4 CSF Volume 3.0 CSF Color Colorless CSF Clarity Clear CSF WBC 3 /cmm (Not Established) CSF RBC 2 /cmm (Not Established) CSF Glucose 52 mg/dL (37-70) CSF Total Protein 53.2 mg/dL (15.0-45.0) Hepatitis A IgM Antibody Nonreactive (Nonreactive) Hepatitis B Surface Antigen Nonreactive (Nonreactive) Hepatitis B Core Total Antibody Nonreactive (Nonreactive) Hepatitis B Core IgM Antibody Nonreactive (Nonreactive) Hepatitis C IgG Antibody Equivocal (Nonreactive) Test 09/12/18 21:20 09/13/18 06:15 Ionized Calcium 0.70 mmol/L (1.13-1.32) White Blood Count 7.6 x10^3/uL (4.0-11.0) Red Blood Count 3.69 x10^6/uL (4.30-5.70) Hemoglobin 10.9 g/dL (13.0-17.5) Hematocrit 30.6 % (39.0-53.0) Mean Corpuscular Volume 83 fL (79-100) Mean Corpuscular Hemoglobin 30 pg (25-35) Mean Corpuscular Hemoglobin Concent 36 g/dL (31-37) Red Cell Distribution Width 13.1 % (11.5-14.5) Platelet Count 148 x10^3/uL (140-400) Neutrophils (%) (Auto) 82 % (31-73) Lymphocytes (%) (Auto) 11 % (24-48) Monocytes (%) (Auto) 6 % (0-9) Eosinophils (%) (Auto) 1 % (0-3) Basophils (%) (Auto) 0 % (0-3) Neutrophils # (Auto) 6.2 x10^3/uL (1.8-7.7) Lymphocytes # (Auto) 0.8 x10^3/uL (1.0-4.8) Monocytes # (Auto) 0.4 x10^3/uL (0.0-1.1) Eosinophils # (Auto) 0.1 x10^3/uL (0.0-0.7) Basophils # (Auto) 0.0 x10^3/uL (0.0-0.2) Sodium Level 124 mmol/L (136-145) Potassium Level 4.3 mmol/L (3.5-5.1) Chloride Level 87 mmol/L (98-107) Carbon Dioxide Level 20 mmol/L (21-32) Anion Gap 17 (6-14) Blood Urea Nitrogen 84 mg/dL (8-26) Creatinine 10.4 mg/dL (0.7-1.3) Estimated GFR (Cockcroft-Gault) 5.9 BUN/Creatinine Ratio 8 (6-20) Glucose Level 91 mg/dL (70-99) Calcium Level 5.5 mg/dL (8.5-10.1) Magnesium Level 2.1 mg/dL (1.8-2.4) Total Bilirubin 0.5 mg/dL (0.2-1.0) Aspartate Amino Transf (AST/SGOT) 1017 U/L (15-37) Alanine Aminotransferase (ALT/SGPT) 412 U/L (16-63) Alkaline Phosphatase 65 U/L (46-116) Total Protein 5.2 g/dL (6.4-8.2) Albumin 2.0 g/dL (3.4-5.0) Albumin/Globulin Ratio 0.6 (1.0-1.7) Microbiology 09/12/18 Blood Culture - Preliminary, Resulted NO GROWTH AFTER 1 DAY 09/12/18 CSF Gram Stain - Final, Complete Medications Current Medications Morphine Sulfate (Morphine Sulfate) 4 mg 1X ONCE IV Last administered on 09/11/18at 21:20; Start 09/11/18 at 21:30; Stop 09/11/18 at 21:31; Status DC Sodium Chloride 1,000 ml @ 1,000 mls/hr 1X ONCE IV Last administered on 09/11/18at 22:30; Start 09/11/18 at 22:30; Stop 09/11/18 at 23:29; Status DC Calcium Gluconate (Calcium Gluconate) 1,000 mg 1X ONCE IVP Last administered on 09/11/18at 22:43; Start 09/11/18 at 23:00; Stop 09/11/18 at 23:01; Status DC Insulin Human Regular (HumuLIN R VIAL) 10 unit 1X ONCE IV Last administered on 09/11/18at 23:51; Start 09/11/18 at 23:00; Stop 09/11/18 at 23:01; Status DC Dextrose (Dextrose 50%-Water Syringe) 25 gm 1X ONCE IV Last administered on 09/11/18at 22:42; Start 09/11/18 at 23:00; Stop 09/11/18 at 23:01; Status DC Sodium Bicarbonate (Sodium Bicarb Adult 8.4% Syr) 50 meq 1X ONCE IV Last administered on 09/11/18at 23:49; Start 09/11/18 at 23:00; Stop 09/11/18 at 23:01; Status DC Sodium Chloride 1,000 ml @ 1,000 mls/hr 1X ONCE IV Last administered on 09/11/18at 23:50; Start 09/11/18 at 23:00; Stop 09/11/18 at 23:59; Status DC Albuterol Sulfate (Ventolin Neb Soln) 10 mg 1X ONCE CONT NEB Last administered on 09/12/18at 00:30; Start 09/11/18 at 23:00; Stop 09/11/18 at 23:01; Status DC Ceftriaxone Sodium (Rocephin) 1 gm 1X ONCE IVP Last administered on 09/11/18at 22:43; Start 09/11/18 at 23:00; Stop 09/11/18 at 23:01; Status DC Sodium Chloride 1,000 ml @ 1,000 mls/hr 1X ONCE IV Last administered on 09/12/18at 01:00; Start 09/12/18 at 01:00; Stop 09/12/18 at 01:59; Status DC Lorazepam (Ativan Inj) 0.5 mg PRN Q6HRS PRN IV ANXIETY / AGITATION Last administered on 09/12/18at 11:00; Start 09/12/18 at 01:15 Ondansetron HCl (Zofran) 4 mg PRN Q6HRS PRN IV NAUSEA/VOMITING 1ST CHOICE; Start 09/12/18 at 01:15; Stop 09/12/18 at 01:22; Status DC Sodium Chloride (Normal Saline Flush) 3 ml QSHIFT PRN IV AFTER MEDS AND BLOOD DRAWS; Start 09/12/18 at 01:15 Sodium Chloride 1,000 ml @ 175 mls/hr Q5H43M IV ; Start 09/12/18 at 01:08; Stop 09/12/18 at 01:23; Status DC Ondansetron HCl (Zofran) 4 mg PRN Q8HRS PRN IV NAUSEA/VOMITING 1ST CHOICE; Start 09/12/18 at 01:15; Stop 09/13/18 at 01:14; Status DC Sodium Chloride 1,000 ml @ 150 mls/hr Q6H40M IV ; Start 09/12/18 at 01:30; Stop 09/12/18 at 18:49; Status DC Morphine Sulfate (Morphine Sulfate) 4 mg PRN Q4HRS PRN IV SEVERE PAIN Last administered on 09/13/18at 04:26; Start 09/12/18 at 09:00 Sodium Bicarbonate (Sodium Bicarb Adult 8.4% Syr) 100 meq 1X ONCE IV Last administered on 09/12/18at 10:02; Start 09/12/18 at 10:00; Stop 09/12/18 at 10:01; Status DC Sodium Chloride 1,000 ml @ 1,000 mls/hr 1X ONCE IV Last administered on 09/12/18at 09:56; Start 09/12/18 at 10:00; Stop 09/12/18 at 10:59; Status DC Lidocaine/Sodium Bicarbonate (Buffered Lidocaine 1%) 3 ml STK-MED ONCE .ROUTE ; Start 09/12/18 at 11:07; Stop 09/12/18 at 11:08; Status DC Calcium Gluconate (Calcium Gluconate) 2,000 mg 1X ONCE IVP Last administered on 09/12/18at 13:38; Start 09/12/18 at 12:00; Stop 09/12/18 at 12:01; Status DC Ceftriaxone Sodium (Rocephin) 1 gm Q24H IVP Last administered on 09/12/18at 12:49; Start 09/12/18 at 13:00; Stop 09/13/18 at 07:45; Status DC Silver Sulfadiazine (Silvadene) 1 elinor BID TP Last administered on 09/12/18at 20:27; Start 09/12/18 at 13:00 Sodium Chloride 1,000 ml @ 1,000 mls/hr 1X ONCE IV Last administered on 09/12/18at 12:47; Start 09/12/18 at 12:45; Stop 09/12/18 at 13:44; Status DC Pantoprazole Sodium (Protonix) 40 mg DAILYAC PO ; Start 09/12/18 at 13:30; Stop 09/12/18 at 19:22; Status DC Polyethylene Glycol (miraLAX PACKET) 17 gm DAILY PO ; Start 09/12/18 at 13:30 Lidocaine/Sodium Bicarbonate (Buffered Lidocaine 1%) 3 ml STK-MED ONCE .ROUTE ; Start 09/12/18 at 13:48; Stop 09/12/18 at 13:49; Status DC Haloperidol Lactate (Haldol Inj) 1 mg PRN Q8HRS PRN IVP AGITATION Last administered on 09/13/18at 00:35; Start 09/12/18 at 14:00 Lorazepam (Ativan Inj) 2 mg PRN Q2HRS PRN IV ANXIETY / AGITATION Last administered on 09/13/18at 04:25; Start 09/12/18 at 14:00 Lidocaine/Sodium Bicarbonate (Buffered Lidocaine 1%) 6 ml 1X ONCE INJ ; Start 09/12/18 at 14:15; Stop 09/12/18 at 14:16; Status DC Dexmedetomidine HCl 200 mcg/ Sodium Chloride 50 ml @ 0 mls/hr CONT PRN IV PER PROTOCOL Last administered on 09/13/18at 06:27; Start 09/12/18 at 14:15 Sodium Chloride 500 ml @ 500 mls/hr 1X PRN PRN IV SEE COMMENTS; Start 09/12/18 at 14:15 Atropine Sulfate (ATROPINE 0.5mg SYRINGE) 0.5 mg PRN Q5MIN PRN IV SEE COMMENTS; Start 09/12/18 at 14:15 Sodium Chloride 1,000 ml @ 1,000 mls/hr Q1H PRN IV hypotension; Start 09/12/18 at 15:08; Stop 09/12/18 at 21:07; Status DC Diphenhydramine HCl (Benadryl) 25 mg 1X PRN PRN IV ITCHING; Start 09/12/18 at 15:15; Stop 09/13/18 at 15:14 Diphenhydramine HCl (Benadryl) 25 mg 1X PRN PRN IV ITCHING; Start 09/12/18 at 15:15; Stop 09/13/18 at 15:14 Sodium Chloride 1,000 ml @ 400 mls/hr Q2H30M PRN IV PATENCY; Start 09/12/18 at 15:08; Stop 09/13/18 at 03:07; Status DC Info (PHARMACY MONITORING -- do not chart) 1 each PRN DAILY PRN MC SEE COMMENTS; Start 09/12/18 at 15:15 Pantoprazole Sodium (PROTONIX VIAL for IV PUSH) 40 mg DAILYAC IVP Last administered on 09/13/18at 07:45; Start 09/13/18 at 07:30 Linezolid (Zyvox) 600 mg BID PO ; Start 09/13/18 at 09:00 Ceftriaxone Sodium (Rocephin) 2 gm Q24H IVP ; Start 09/13/18 at 13:00 Active Scripts Active Reported Protonix (Pantoprazole Sodium) 20 Mg Tablet.dr 2 Tab PO DAILY Zyprexa (Olanzapine) 20 Mg Tablet 2 Tab PO QHS Buspirone Hcl 30 Mg Tablet 1 Tab PO BID Vitals/I & O Vital Sign - Last 24 Hours 09/12/18 09/12/18 09/12/18 09/12/18 09:00 09:18 10:00 11:00 Pulse 100 100 102 Resp 22 20 20 20 B/P (MAP) 141/76 (97) 114/72 (86) 133/74 (93) Pulse Ox 98 98 98 O2 Delivery Room Air Room Air Room Air Room Air 09/12/18 09/12/18 09/12/18 09/12/18 12:00 15:15 15:49 16:00 Pulse 92 Resp 20 18 20 B/P (MAP) 129/68 (88) 110/59 (76) Pulse Ox 98 97 O2 Delivery Room Air Room Air Room Air Room Air 09/12/18 09/12/18 09/12/18 09/12/18 16:00 17:00 18:00 19:00 Temp 98.1 98.1 Pulse 70 88 86 Resp 20 20 16 B/P (MAP) 139/76 (97) 108/49 (68) 102/52 (69) Pulse Ox 97 97 98 O2 Delivery Room Air Room Air Room Air Room Air 09/12/18 09/12/18 09/12/18 09/12/18 19:49 20:00 20:00 21:00 Temp 98.2 98.2 Pulse 89 86 Resp 15 20 15 B/P (MAP) 103/48 (66) 102/50 (67) Pulse Ox 98 95 97 O2 Delivery Room Air Room Air Room Air Room Air 09/12/18 09/12/18 09/12/18 09/13/18 22:00 23:00 23:44 00:00 Temp 98.1 98.1 Pulse 88 88 89 Resp 16 15 15 B/P (MAP) 109/55 (73) 109/54 (72) 96/43 (60) Pulse Ox 96 96 96 O2 Delivery Room Air Room Air Room Air Room Air 09/13/18 09/13/18 09/13/18 09/13/18 00:36 01:00 02:00 03:00 Pulse 89 84 87 Resp 19 15 17 15 B/P (MAP) 115/62 (79) 129/67 (87) 105/52 (69) Pulse Ox 96 94 95 96 O2 Delivery Room Air Room Air Room Air Room Air 09/13/18 09/13/18 09/13/18 09/13/18 03:37 04:00 04:26 04:56 Temp 98.1 98.1 Pulse 86 Resp 15 16 15 B/P (MAP) 105/52 (69) Pulse Ox 95 95 95 O2 Delivery Room Air Room Air Room Air Room Air 09/13/18 09/13/18 05:00 06:00 Pulse 86 69 Resp 16 16 B/P (MAP) 100/49 (66) 104/49 (67) Pulse Ox 95 96 O2 Delivery Room Air Room Air Intake and Output 09/12/18 09/12/18 09/13/18 14:59 22:59 06:59 Intake Total 2050 ml 1110 ml 166 ml Output Total 835 ml 35 ml 5 ml Balance 1215 ml 1075 ml 161 ml MARIAM SINGH MD Sep 13, 2018 08:39
[2018-09-13] MEDS: POLYETHYLENE GLYCOL 3350 17 GM PACKET. PO SCH (09:00)
--- NOTE | 2018-09-13 09:27 | NUR ---
IP: Pt is mrsa screen + requiring contact precautions.
--- NOTE | 2018-09-13 09:40 | PDOC ---
SUBJECTIVE ROS No acute events overnight OBJECTIVE Vital Signs Vital Signs Date Time Temp Pulse Resp B/P (MAP) Pulse Ox O2 Delivery O2 Flow Rate FiO2 09/13/18 06:00 69 16 104/49 (67) 96 Room Air 09/13/18 04:00 98.1 98.1 I & 0 Intake and Output 09/13/18 07:00 Intake Total 3326 ml Output Total 75 ml Balance 3251 ml Intake Oral 100 ml IV Total 3226 ml Output Urine Total 75 ml PHYSICAL EXAM Physical Exam GEN: NAD HEENT: Sclerae nonicteric, OM moist NECK: Supple. LUNGS: Clear, No accessory muscle use CARDIOVASCULAR: Regular rate. ABDOMEN: Soft, NT EXTREMITIES: edema in the right hand, LE edema trace SKIN-He has multiple punctate skin,lesions. He has some ulceration in one of the right hand finger. 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 Rhabdo- Very high CK Follow CPK, No significant diuresis with IVF Hyperkalemia- Normal K Hyponatremia- Improved Holding IVF Severe Metabolic acidosis- 2/2 all above Resolved Transaminitis Hypocalcemia- severe 2/2 Rhabdo Replace cautiously and Monitor closely for Hypercalcemia during recovery phase Discussed with RN COMMENT/RELEVANT DATA Meds Current Medications Medications (Trade) Dose Ordered Sig/Mirela Start Time Stop Time Status Last Admin Dose Admin Albuterol Sulfate (Ventolin Neb Soln) 10 mg 1X ONCE 09/11/18 23:00 09/11/18 23:01 DC 09/12/18 00:30 10 MG Atropine Sulfate (ATROPINE 0.5mg SYRINGE) 0.5 mg PRN Q5MIN PRN 09/12/18 14:15 Calcium Gluconate (Calcium Gluconate) 2,000 mg 1X ONCE 09/12/18 12:00 09/12/18 12:01 DC 09/12/18 13:38 2,000 MG Calcium Gluconate 2000 mg/Dextrose 120 ml @ 220 mls/hr 1X ONCE 09/13/18 10:00 09/13/18 10:32 Ceftriaxone Sodium (Rocephin) 2 gm Q24H 09/13/18 13:00 Dexmedetomidine HCl 200 mcg/ Sodium Chloride 50 ml @ 0 mls/hr CONT PRN 09/12/18 14:15 09/13/18 08:47 12 MLS/HR Dextrose (Dextrose 50%-Water Syringe) 25 gm 1X ONCE 09/11/18 23:00 09/11/18 23:01 DC 09/11/18 22:42 25 GM Diphenhydramine HCl (Benadryl) 25 mg 1X PRN PRN 09/12/18 15:15 09/13/18 15:14 Haloperidol Lactate (Haldol Inj) 1 mg PRN Q8HRS PRN 09/12/18 14:00 09/13/18 00:35 1 MG Info (PHARMACY MONITORING -- do not chart) 1 each PRN DAILY PRN 09/12/18 15:15 Insulin Human Regular (HumuLIN R VIAL) 10 unit 1X ONCE 09/11/18 23:00 09/11/18 23:01 DC 09/11/18 23:51 10 UNIT Lidocaine/Sodium Bicarbonate (Buffered Lidocaine 1%) 6 ml 1X ONCE 09/12/18 14:15 09/12/18 14:16 DC Linezolid (Zyvox) 600 mg BID 09/13/18 09:00 Lorazepam (Ativan Inj) 2 mg PRN Q2HRS PRN 09/12/18 14:00 09/13/18 04:25 2 MG Morphine Sulfate (Morphine Sulfate) 4 mg PRN Q4HRS PRN 09/12/18 09:00 09/13/18 04:26 4 MG Ondansetron HCl (Zofran) 4 mg PRN Q8HRS PRN 09/12/18 01:15 09/13/18 01:14 DC Pantoprazole Sodium (PROTONIX VIAL for IV PUSH) 40 mg DAILYAC 09/13/18 07:30 09/13/18 07:45 40 MG Pantoprazole Sodium (Protonix) 40 mg DAILYAC 09/12/18 13:30 09/12/18 19:22 DC Polyethylene Glycol (miraLAX PACKET) 17 gm DAILY 09/12/18 13:30 Silver Sulfadiazine (Silvadene) 1 elinor BID 09/12/18 13:00 09/12/18 20:27 1 ELINOR Sodium Bicarbonate (Sodium Bicarb Adult 8.4% Syr) 100 meq 1X ONCE 09/12/18 10:00 09/12/18 10:01 DC 09/12/18 10:02 100 MEQ Sodium Chloride 1,000 ml @ 400 mls/hr Q2H30M PRN 09/12/18 15:08 09/13/18 03:07 DC Sodium Chloride (Normal Saline Flush) 3 ml QSHIFT PRN 09/12/18 01:15 Lab Laboratory Tests Test 09/12/18 09:39 09/12/18 11:19 09/12/18 15:15 09/12/18 18:00 Erythrocyte Sedimentation Rate 35 (0-15) Sodium Level 117 mmol/L (136-145) 127 mmol/L (136-145) Potassium Level 6.6 mmol/L (3.5-5.1) 3.5 mmol/L (3.5-5.1) Chloride Level 81 mmol/L (98-107) 88 mmol/L (98-107) Carbon Dioxide Level 9 mmol/L (21-32) 21 mmol/L (21-32) Anion Gap 27 (6-14) 18 (6-14) Blood Urea Nitrogen 115 mg/dL (8-26) 69 mg/dL (8-26) Creatinine 13.4 mg/dL (0.7-1.3) 8.6 mg/dL (0.7-1.3) Estimated GFR (Cockcroft-Gault) 4.4 7.3 Glucose Level 81 mg/dL (70-99) 70 mg/dL (70-99) Calcium Level < 5.0 mg/dL (8.5-10.1) 5.6 mg/dL (8.5-10.1) Vitamin B12 Level 430 pg/mL (247-911) Thyroid Stimulating Hormone (TSH) 2.175 uIU/mL (0.358-3.74) CSF Tube Number 4 CSF Volume 3.0 CSF Color Colorless CSF Clarity Clear CSF WBC 3 /cmm (Not Established) CSF RBC 2 /cmm (Not Established) CSF Glucose 52 mg/dL (37-70) CSF Total Protein 53.2 mg/dL (15.0-45.0) Hepatitis A IgM Antibody Nonreactive (Nonreactive) Hepatitis B Surface Antigen Nonreactive (Nonreactive) Hepatitis B Core Total Antibody Nonreactive (Nonreactive) Hepatitis B Core IgM Antibody Nonreactive (Nonreactive) Hepatitis C IgG Antibody Equivocal (Nonreactive) Test 09/12/18 21:20 09/13/18 06:15 Ionized Calcium 0.70 mmol/L (1.13-1.32) White Blood Count 7.6 x10^3/uL (4.0-11.0) Red Blood Count 3.69 x10^6/uL (4.30-5.70) Hemoglobin 10.9 g/dL (13.0-17.5) Hematocrit 30.6 % (39.0-53.0) Mean Corpuscular Volume 83 fL (79-100) Mean Corpuscular Hemoglobin 30 pg (25-35) Mean Corpuscular Hemoglobin Concent 36 g/dL (31-37) Red Cell Distribution Width 13.1 % (11.5-14.5) Platelet Count 148 x10^3/uL (140-400) Neutrophils (%) (Auto) 82 % (31-73) Lymphocytes (%) (Auto) 11 % (24-48) Monocytes (%) (Auto) 6 % (0-9) Eosinophils (%) (Auto) 1 % (0-3) Basophils (%) (Auto) 0 % (0-3) Neutrophils # (Auto) 6.2 x10^3/uL (1.8-7.7) Lymphocytes # (Auto) 0.8 x10^3/uL (1.0-4.8) Monocytes # (Auto) 0.4 x10^3/uL (0.0-1.1) Eosinophils # (Auto) 0.1 x10^3/uL (0.0-0.7) Basophils # (Auto) 0.0 x10^3/uL (0.0-0.2) Sodium Level 124 mmol/L (136-145) Potassium Level 4.3 mmol/L (3.5-5.1) Chloride Level 87 mmol/L (98-107) Carbon Dioxide Level 20 mmol/L (21-32) Anion Gap 17 (6-14) Blood Urea Nitrogen 84 mg/dL (8-26) Creatinine 10.4 mg/dL (0.7-1.3) Estimated GFR (Cockcroft-Gault) 5.9 BUN/Creatinine Ratio 8 (6-20) Glucose Level 91 mg/dL (70-99) Calcium Level 5.5 mg/dL (8.5-10.1) Magnesium Level 2.1 mg/dL (1.8-2.4) Total Bilirubin 0.5 mg/dL (0.2-1.0) Aspartate Amino Transf (AST/SGOT) 1017 U/L (15-37) Alanine Aminotransferase (ALT/SGPT) 412 U/L (16-63) Alkaline Phosphatase 65 U/L (46-116) Total Protein 5.2 g/dL (6.4-8.2) Albumin 2.0 g/dL (3.4-5.0) Albumin/Globulin Ratio 0.6 (1.0-1.7) Results All relevant outside records, renal labs, imaging studies, telemetry/EKG's were reviewed. LAVONNE ROADS MD Sep 13, 2018 09:40
--- NOTE | 2018-09-13 09:46 | RAD ---
HAND RIGHT 3V 09/13/2018 7:17 AM INDICATION: [place] COMPARISON: None available. TECHNIQUE: 3 views the right hand are provided. FINDINGS: Phalanges are contracted limiting evaluation. There is no acute fracture or dislocation. Bone mineralization is within normal limits. Joint spaces are maintained. Regional soft tissues are within normal limits. There is no soft tissue gas or osseous erosion. IMPRESSION: No acute fracture or dislocation although evaluation is limited by positioning. Electronically signed by: Mikala Yin MD (09/13/2018 9:44 AM) [id number]
[2018-09-13] MEDS ORDERED: CALCIUM GLUCONATE 2,000 MG in IV DEXTROSE 5% 100ML 100 ML IV ONE (10:00)
[2018-09-13] MEDS: silver sulfADIAZINE 1% CREAM 25GM TUBE. TP SCH (10:06)
--- NOTE | 2018-09-13 10:06 | PDOC ---
Subjective: Subjective: Headache. Objective: Objective: Reviewed w/ RN - has been sleeping this morning, confused, NPO. Vital Signs: Vital Signs Date Time Temp Pulse Resp B/P (MAP) Pulse Ox O2 Delivery O2 Flow Rate FiO2 09/13/18 09:00 82 17 111/53 (72) 93 Room Air 09/13/18 08:00 97.8 97.8 Labs: Laboratory Tests Test 09/12/18 11:19 09/12/18 15:15 09/12/18 18:00 09/12/18 21:20 CSF Tube Number 4 CSF Volume 3.0 CSF Color Colorless CSF Clarity Clear CSF WBC 3 /cmm CSF RBC 2 /cmm CSF Glucose 52 mg/dL CSF Total Protein 53.2 mg/dL Hepatitis A IgM Antibody Nonreactive Hepatitis B Surface Antigen Nonreactive Hepatitis B Core Total Antibody Nonreactive Hepatitis B Core IgM Antibody Nonreactive Hepatitis C IgG Antibody Equivocal Sodium Level 127 mmol/L Potassium Level 3.5 mmol/L Chloride Level 88 mmol/L Carbon Dioxide Level 21 mmol/L Anion Gap 18 Blood Urea Nitrogen 69 mg/dL Creatinine 8.6 mg/dL Estimated GFR (Cockcroft-Gault) 7.3 Glucose Level 70 mg/dL Calcium Level 5.6 mg/dL Ionized Calcium 0.70 mmol/L Test 09/13/18 06:15 White Blood Count 7.6 x10^3/uL Red Blood Count 3.69 x10^6/uL Hemoglobin 10.9 g/dL Hematocrit 30.6 % Mean Corpuscular Volume 83 fL Mean Corpuscular Hemoglobin 30 pg Mean Corpuscular Hemoglobin Concent 36 g/dL Red Cell Distribution Width 13.1 % Platelet Count 148 x10^3/uL Neutrophils (%) (Auto) 82 % Lymphocytes (%) (Auto) 11 % Monocytes (%) (Auto) 6 % Eosinophils (%) (Auto) 1 % Basophils (%) (Auto) 0 % Neutrophils # (Auto) 6.2 x10^3/uL Lymphocytes # (Auto) 0.8 x10^3/uL Monocytes # (Auto) 0.4 x10^3/uL Eosinophils # (Auto) 0.1 x10^3/uL Basophils # (Auto) 0.0 x10^3/uL Sodium Level 124 mmol/L Potassium Level 4.3 mmol/L Chloride Level 87 mmol/L Carbon Dioxide Level 20 mmol/L Anion Gap 17 Blood Urea Nitrogen 84 mg/dL Creatinine 10.4 mg/dL Estimated GFR (Cockcroft-Gault) 5.9 BUN/Creatinine Ratio 8 Glucose Level 91 mg/dL Calcium Level 5.5 mg/dL Magnesium Level 2.1 mg/dL Total Bilirubin 0.5 mg/dL Aspartate Amino Transf (AST/SGOT) 1017 U/L Alanine Aminotransferase (ALT/SGPT) 412 U/L Alkaline Phosphatase 65 U/L Creatine Kinase Pending Total Protein 5.2 g/dL Albumin 2.0 g/dL Albumin/Globulin Ratio 0.6 Imaging: Right Hand X-Ray 09/13 IMPRESSION: No acute fracture or dislocation although evaluation is limited by positioning. PE: GEN: NAD HEENT: eyes closed LUNGS: CTAB HEART: RRR ABD: S/ND/NT NEURO/PSYCH: drowsy A/P: Transaminitis - improved, likely 2/2 rhabdo/elevated CK, not hepatorenal Abnormal Hep C Ab - PCR pending -- Continue same per GI - can change to PO PPI when eating. LARRY HARDY Sep 13, 2018 10:06
[2018-09-13 10:09] LABS: CREATINE KINASE > 100000 U/L (39-308)
[2018-09-13] MEDS ORDERED: IV NORMAL SALINE 1000ML BAG 1,000 ML IV PRN ×2 (11:06)
[2018-09-13] MEDS ORDERED: diphenhydrAMINE 50 MG/ML VIAL IV PRN ×2 (11:15)
[2018-09-13] MEDS ORDERED: DIALYSIS PATIENT. MC PRN (11:15)
--- NOTE | 2018-09-13 11:17 | PDOC ---
PULMONARY PROGRESS NOTES Subjective no soa Vitals Vital Signs Date Time Temp Pulse Resp B/P (MAP) Pulse Ox O2 Delivery O2 Flow Rate FiO2 09/13/18 10:00 81 23 110/50 (70) 96 Room Air 09/13/18 08:00 97.8 97.8 General: No acute distress Lungs: Clear Cardiovascular: S1 Abdomen: Soft Extremities: Other (1+edema,) Labs Laboratory Tests Test 09/11/18 20:50 09/11/18 21:00 09/12/18 05:15 09/12/18 07:00 White Blood Count 17.0 x10^3/uL (4.0-11.0) 11.0 x10^3/uL (4.0-11.0) Red Blood Count 4.77 x10^6/uL (4.30-5.70) 4.37 x10^6/uL (4.30-5.70) Hemoglobin 13.9 g/dL (13.0-17.5) 12.8 g/dL (13.0-17.5) Hematocrit 39.0 % (39.0-53.0) 35.7 % (39.0-53.0) Mean Corpuscular Volume 82 fL (79-100) 82 fL (79-100) Mean Corpuscular Hemoglobin 29 pg (25-35) 29 pg (25-35) Mean Corpuscular Hemoglobin Concent 36 g/dL (31-37) 36 g/dL (31-37) Red Cell Distribution Width 13.0 % (11.5-14.5) 12.8 % (11.5-14.5) Platelet Count 320 x10^3/uL (140-400) 217 x10^3/uL (140-400) Neutrophils (%) (Auto) 92 % (31-73) 89 % (31-73) Lymphocytes (%) (Auto) 3 % (24-48) 7 % (24-48) Monocytes (%) (Auto) 4 % (0-9) 4 % (0-9) Eosinophils (%) (Auto) 0 % (0-3) 0 % (0-3) Basophils (%) (Auto) 0 % (0-3) 0 % (0-3) Neutrophils # (Auto) 15.7 x10^3uL (1.8-7.7) 9.7 x10^3uL (1.8-7.7) Lymphocytes # (Auto) 0.5 x10^3/uL (1.0-4.8) 0.8 x10^3/uL (1.0-4.8) Monocytes # (Auto) 0.7 x10^3/uL (0.0-1.1) 0.5 x10^3/uL (0.0-1.1) Eosinophils # (Auto) 0.0 x10^3/uL (0.0-0.7) 0.0 x10^3/uL (0.0-0.7) Basophils # (Auto) 0.0 x10^3/uL (0.0-0.2) 0.0 x10^3/uL (0.0-0.2) Segmented Neutrophils % 90 % (35-66) Lymphocytes % 5 % (24-48) Monocytes % 5 % (0-10) Platelet Estimate Adequate (ADEQUATE) Polychromasia Slight Anisocytosis Slight Prothrombin Time 14.7 SEC (11.7-14.0) Prothromb Time International Ratio 1.2 (0.8-1.1) Activated Partial Thromboplast Time 31 SEC (24-38) Sodium Level 112 mmol/L (136-145) 117 mmol/L (136-145) Potassium Level 7.0 mmol/L (3.5-5.1) 5.6 mmol/L (3.5-5.1) Chloride Level 73 mmol/L (98-107) 80 mmol/L (98-107) Carbon Dioxide Level 12 mmol/L (21-32) 10 mmol/L (21-32) Anion Gap 27 (6-14) 27 (6-14) Blood Urea Nitrogen 110 mg/dL (8-26) 112 mg/dL (8-26) Creatinine 13.4 mg/dL (0.7-1.3) 13.2 mg/dL (0.7-1.3) Estimated GFR (Cockcroft-Gault) 4.4 4.5 BUN/Creatinine Ratio 8 (6-20) 8 (6-20) Glucose Level 81 mg/dL (70-99) 70 mg/dL (70-99) Lactic Acid Level 1.1 mmol/L (0.4-2.0) Calcium Level 5.4 mg/dL (8.5-10.1) 5.0 mg/dL (8.5-10.1) Magnesium Level 3.0 mg/dL (1.8-2.4) Total Bilirubin 0.9 mg/dL (0.2-1.0) 0.6 mg/dL (0.2-1.0) Aspartate Amino Transf (AST/SGOT) 2923 U/L (15-37) 2204 U/L (15-37) Alanine Aminotransferase (ALT/SGPT) 818 U/L (16-63) 603 U/L (16-63) Alkaline Phosphatase 89 U/L (46-116) 71 U/L (46-116) Creatine Kinase > 844589 U/L (39-308) Troponin I Quantitative 0.352 ng/mL (0.000-0.055) Total Protein 7.0 g/dL (6.4-8.2) 6.2 g/dL (6.4-8.2) Albumin 3.4 g/dL (3.4-5.0) 2.6 g/dL (3.4-5.0) Albumin/Globulin Ratio 0.9 (1.0-1.7) 0.7 (1.0-1.7) Lipase 972 U/L (73-393) Ethyl Alcohol Level < 10 mg/dL (0-10) Urine Color Red Urine Clarity Clear Urine pH 6.0 Urine Specific [place] 1.020 Urine Protein >=300 mg/dL (NEG-TRACE) Urine Glucose (UA) 100 mg/dL (NEG) Urine Ketones (Stick) Trace mg/dL (NEG) Urine Blood Large (NEG) Urine Nitrite Positive (NEG) Urine Bilirubin Moderate (NEG) Urine Urobilinogen Dipstick 0.2 mg/dL (0.2 mg/dL) Urine Leukocyte Esterase Small (NEG) Urine RBC 3-5 /HPF (0-2) Urine WBC Occ /HPF (0-4) Urine Squamous Epithelial Cells None /LPF Urine Amorphous Sediment Present /HPF Urine Bacteria 0 /HPF (0-FEW) Urine Random Creatinine 199.6 mg/dL (Not Establ.) Urine Random Sodium <60 mmol/L (Not Estab.) Urine Opiates Screen Neg (NEG) Urine Methadone Screen Neg (NEG) Urine Barbiturates Neg (NEG) Urine Phencyclidine Screen Neg (NEG) Urine Amphetamine/Methamphetamine Pos (NEG) Urine Benzodiazepines Screen Neg (NEG) Urine Cocaine Screen Neg (NEG) Urine Cannabinoids Screen Neg (NEG) Urine Ethyl Alcohol Neg (NEG) Nasal Screen MRSA (PCR) Positive (Negative) Test 09/12/18 09:39 09/12/18 11:19 09/12/18 15:15 09/12/18 18:00 Erythrocyte Sedimentation Rate 35 (0-15) Sodium Level 117 mmol/L (136-145) 127 mmol/L (136-145) Potassium Level 6.6 mmol/L (3.5-5.1) 3.5 mmol/L (3.5-5.1) Chloride Level 81 mmol/L (98-107) 88 mmol/L (98-107) Carbon Dioxide Level 9 mmol/L (21-32) 21 mmol/L (21-32) Anion Gap 27 (6-14) 18 (6-14) Blood Urea Nitrogen 115 mg/dL (8-26) 69 mg/dL (8-26) Creatinine 13.4 mg/dL (0.7-1.3) 8.6 mg/dL (0.7-1.3) Estimated GFR (Cockcroft-Gault) 4.4 7.3 Glucose Level 81 mg/dL (70-99) 70 mg/dL (70-99) Calcium Level < 5.0 mg/dL (8.5-10.1) 5.6 mg/dL (8.5-10.1) Vitamin B12 Level 430 pg/mL (247-911) Thyroid Stimulating Hormone (TSH) 2.175 uIU/mL (0.358-3.74) CSF Tube Number 4 CSF Volume 3.0 CSF Color Colorless CSF Clarity Clear CSF WBC 3 /cmm (Not Established) CSF RBC 2 /cmm (Not Established) CSF Glucose 52 mg/dL (37-70) CSF Total Protein 53.2 mg/dL (15.0-45.0) Hepatitis A IgM Antibody Nonreactive (Nonreactive) Hepatitis B Surface Antigen Nonreactive (Nonreactive) Hepatitis B Core Total Antibody Nonreactive (Nonreactive) Hepatitis B Core IgM Antibody Nonreactive (Nonreactive) Hepatitis C IgG Antibody Equivocal (Nonreactive) Test 09/12/18 21:20 09/13/18 06:15 Ionized Calcium 0.70 mmol/L (1.13-1.32) White Blood Count 7.6 x10^3/uL (4.0-11.0) Red Blood Count 3.69 x10^6/uL (4.30-5.70) Hemoglobin 10.9 g/dL (13.0-17.5) Hematocrit 30.6 % (39.0-53.0) Mean Corpuscular Volume 83 fL (79-100) Mean Corpuscular Hemoglobin 30 pg (25-35) Mean Corpuscular Hemoglobin Concent 36 g/dL (31-37) Red Cell Distribution Width 13.1 % (11.5-14.5) Platelet Count 148 x10^3/uL (140-400) Neutrophils (%) (Auto) 82 % (31-73) Lymphocytes (%) (Auto) 11 % (24-48) Monocytes (%) (Auto) 6 % (0-9) Eosinophils (%) (Auto) 1 % (0-3) Basophils (%) (Auto) 0 % (0-3) Neutrophils # (Auto) 6.2 x10^3/uL (1.8-7.7) Lymphocytes # (Auto) 0.8 x10^3/uL (1.0-4.8) Monocytes # (Auto) 0.4 x10^3/uL (0.0-1.1) Eosinophils # (Auto) 0.1 x10^3/uL (0.0-0.7) Basophils # (Auto) 0.0 x10^3/uL (0.0-0.2) Sodium Level 124 mmol/L (136-145) Potassium Level 4.3 mmol/L (3.5-5.1) Chloride Level 87 mmol/L (98-107) Carbon Dioxide Level 20 mmol/L (21-32) Anion Gap 17 (6-14) Blood Urea Nitrogen 84 mg/dL (8-26) Creatinine 10.4 mg/dL (0.7-1.3) Estimated GFR (Cockcroft-Gault) 5.9 BUN/Creatinine Ratio 8 (6-20) Glucose Level 91 mg/dL (70-99) Calcium Level 5.5 mg/dL (8.5-10.1) Magnesium Level 2.1 mg/dL (1.8-2.4) Total Bilirubin 0.5 mg/dL (0.2-1.0) Aspartate Amino Transf (AST/SGOT) 1017 U/L (15-37) Alanine Aminotransferase (ALT/SGPT) 412 U/L (16-63) Alkaline Phosphatase 65 U/L (46-116) Creatine Kinase > 456761 U/L (39-308) Total Protein 5.2 g/dL (6.4-8.2) Albumin 2.0 g/dL (3.4-5.0) Albumin/Globulin Ratio 0.6 (1.0-1.7) Laboratory Tests Test 09/12/18 11:19 09/12/18 15:15 09/12/18 18:00 09/12/18 21:20 CSF Tube Number 4 CSF Volume 3.0 CSF Color Colorless CSF Clarity Clear CSF WBC 3 /cmm (Not Established) CSF RBC 2 /cmm (Not Established) CSF Glucose 52 mg/dL (37-70) CSF Total Protein 53.2 mg/dL (15.0-45.0) Hepatitis A IgM Antibody Nonreactive (Nonreactive) Hepatitis B Surface Antigen Nonreactive (Nonreactive) Hepatitis B Core Total Antibody Nonreactive (Nonreactive) Hepatitis B Core IgM Antibody Nonreactive (Nonreactive) Hepatitis C IgG Antibody Equivocal (Nonreactive) Sodium Level 127 mmol/L (136-145) Potassium Level 3.5 mmol/L (3.5-5.1) Chloride Level 88 mmol/L (98-107) Carbon Dioxide Level 21 mmol/L (21-32) Anion Gap 18 (6-14) Blood Urea Nitrogen 69 mg/dL (8-26) Creatinine 8.6 mg/dL (0.7-1.3) Estimated GFR (Cockcroft-Gault) 7.3 Glucose Level 70 mg/dL (70-99) Calcium Level 5.6 mg/dL (8.5-10.1) Ionized Calcium 0.70 mmol/L (1.13-1.32) Test 09/13/18 06:15 White Blood Count 7.6 x10^3/uL (4.0-11.0) Red Blood Count 3.69 x10^6/uL (4.30-5.70) Hemoglobin 10.9 g/dL (13.0-17.5) Hematocrit 30.6 % (39.0-53.0) Mean Corpuscular Volume 83 fL (79-100) Mean Corpuscular Hemoglobin 30 pg (25-35) Mean Corpuscular Hemoglobin Concent 36 g/dL (31-37) Red Cell Distribution Width 13.1 % (11.5-14.5) Platelet Count 148 x10^3/uL (140-400) Neutrophils (%) (Auto) 82 % (31-73) Lymphocytes (%) (Auto) 11 % (24-48) Monocytes (%) (Auto) 6 % (0-9) Eosinophils (%) (Auto) 1 % (0-3) Basophils (%) (Auto) 0 % (0-3) Neutrophils # (Auto) 6.2 x10^3/uL (1.8-7.7) Lymphocytes # (Auto) 0.8 x10^3/uL (1.0-4.8) Monocytes # (Auto) 0.4 x10^3/uL (0.0-1.1) Eosinophils # (Auto) 0.1 x10^3/uL (0.0-0.7) Basophils # (Auto) 0.0 x10^3/uL (0.0-0.2) Sodium Level 124 mmol/L (136-145) Potassium Level 4.3 mmol/L (3.5-5.1) Chloride Level 87 mmol/L (98-107) Carbon Dioxide Level 20 mmol/L (21-32) Anion Gap 17 (6-14) Blood Urea Nitrogen 84 mg/dL (8-26) Creatinine 10.4 mg/dL (0.7-1.3) Estimated GFR (Cockcroft-Gault) 5.9 BUN/Creatinine Ratio 8 (6-20) Glucose Level 91 mg/dL (70-99) Calcium Level 5.5 mg/dL (8.5-10.1) Magnesium Level 2.1 mg/dL (1.8-2.4) Total Bilirubin 0.5 mg/dL (0.2-1.0) Aspartate Amino Transf (AST/SGOT) 1017 U/L (15-37) Alanine Aminotransferase (ALT/SGPT) 412 U/L (16-63) Alkaline Phosphatase 65 U/L (46-116) Creatine Kinase > 500145 U/L (39-308) Total Protein 5.2 g/dL (6.4-8.2) Albumin 2.0 g/dL (3.4-5.0) Albumin/Globulin Ratio 0.6 (1.0-1.7) Medications Active Scripts Medications Dose Route/Sig Max Daily Dose Days Date Category Protonix (Pantoprazole Sodium) 20 Mg Tablet.dr 2 Tab PO DAILY 09/12/18 Reported Zyprexa (Olanzapine) 20 Mg Tablet 2 Tab PO QHS 09/12/18 Reported Buspirone Hcl 30 Mg Tablet 1 Tab PO BID 09/12/18 Reported Impression . 1. Status post fall with acute rhabdomyolysis with markedly high CPKs and acute renal failure. 2. Acute kidney injury secondary to rhabdomyolysis. 3. Severe metabolic acidosis secondary to acute kidney injury. Clinically, less likely sepsis. Lactic acid is 1.1 4. Hyponatremia. 5. Moderate protein-calorie malnutrition. 6. Leukocytosis, likely reactive. 7. Status post fall with abnormal thoracic MRI. Neurosurgery following. 8. Abnormal liver function test secondary to hypoperfusion and rhabdomyolysis. 9. Hypocalcemia. Plan . 1. s/p fluid resuscitation , started on HD 2. Follow Renal's recommendation. 3. prn bicarbonate. 4. Monitor sodium level. 5. Follow Neurology and Neurosurgery's recommendation. 6. Continue empiric antibiotic, although clinical suspicion for infection is low. 7. Follow CPKs. 8. Correct calcium and follow the levels. 9. clear chest x-ray. 10. Discussed with RN and will follow along with you. EITAN HAGAN MD Sep 13, 2018 11:17
--- NOTE | 2018-09-13 13:21 | RAD ---
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 Informed consent was obtained. A timeout procedure was performed. All elements of maximal sterile barrier technique including the use of a cap, mask, sterile gown, sterile gloves, large sterile sheet, appropriate hand hygiene, and 2% chlorhexidine for cutaneous antisepsis (or acceptable alternative antiseptic per current guidelines) were followed for this procedure. The patient was prepped and draped in the usual sterile fashion. Ultrasound interrogation of the right neck revealed patency and compressibility of the right internal jugular vein. A 21-gauge micropuncture was then used to gain access to this vein under ultrasound guidance. A hard copy ultrasound image was recorded. A guidewire was advanced centrally. 5 German sheath was placed. Over a wire following dilatation, a triple-lumen central venous catheter was advanced centrally. Catheter was found to flush and aspirate normally. Follow-up chest radiograph demonstrates tip at the cavoatrial junction. Catheter secured in place and a sterile dressing was applied. No immediate complications were identified. Impression: Successful ultrasound-guided placement of right internal jugular triple-lumen central venous catheter
[2018-09-13 14:14] LABS: URINE OSMOLALITY 324 mOsmol/kg (.)
[2018-09-13] MEDS: LINEZOLID 600 MG TABLET PO SCH ×2 (14:14→21:00)
[2018-09-13] MEDS: cefTRIAXone IV Push 2 GM VIAL. IVP SCH (14:39)
--- NOTE | 2018-09-13 14:59 | NUR ---
Wound Care Wound care consult for right hand rapp. Cleansed wounds, applied Medihoney alginate and gauze to open blisters on thumb and index fingers, recommend to change every 3 days. Pt has abrasion to left elbow, covered with Xeroform and foam dressing. No other wounds noted on full skin inspection. WC will continue to follow for possible changes
--- NOTE | 2018-09-13 15:06 | PDOC ---
PROGRESS NOTES Assessment Problems Medical Problems: (1) Elevated troponin Status: Acute (2) Hepatorenal syndrome Status: Acute (3) Hyperkalemia Status: Acute (4) Hyponatremia Status: Acute (5) Methamphetamine abuse Status: Acute (6) Neurological complaint Status: Acute (7) Rhabdomyolysis Status: Acute (8) Urinary retention Status: Acute (9) Urinary tract infection Status: Acute Bilateral leg weakness and numbness, factitious disorder But he has rhabdomyolysis and some edema of the psoas muscle on the MRI, Methamphetamine abuse. Plan Hold on repeat MRI studies Supportive ICU care for rhabdomyolysis, renal insufficiency, and other medical problems. Physical and occupational therapy. Subjective denies pain, says he can't move Objective Vital Signs Date Time Temp Pulse Resp B/P (MAP) Pulse Ox O2 Delivery O2 Flow Rate FiO2 09/13/18 14:05 17 95 Room Air 09/13/18 14:00 104 129/68 (88) 09/13/18 12:00 98.1 98.1 Intake and Output 09/13/18 07:00 Intake Total 3326 ml Output Total 75 ml Balance 3251 ml Intake Oral 100 ml IV Total 3226 ml Output Urine Total 75 ml PHYSICAL EXAM Alert. Oriented to time, place and person. PERRL. EOMI. CN: no focal findings. Muscle tone: normal. Muscle strength: Says he can't move at all, just a few minutes before he was standing at the bedside trying to get out of bed DTR: 2+ Plantar reflex: Flexor Gait: not examined in bed. Sensory exam: Complete anesthesia to the neck No cerebellar signs elicited. Review of Relevant I have reviewed the following items ashlie (where applicable) has been applied. Labs Laboratory Tests Test 09/11/18 20:50 09/11/18 21:00 09/12/18 05:15 09/12/18 07:00 White Blood Count 17.0 x10^3/uL (4.0-11.0) 11.0 x10^3/uL (4.0-11.0) Red Blood Count 4.77 x10^6/uL (4.30-5.70) 4.37 x10^6/uL (4.30-5.70) Hemoglobin 13.9 g/dL (13.0-17.5) 12.8 g/dL (13.0-17.5) Hematocrit 39.0 % (39.0-53.0) 35.7 % (39.0-53.0) Mean Corpuscular Volume 82 fL (79-100) 82 fL (79-100) Mean Corpuscular Hemoglobin 29 pg (25-35) 29 pg (25-35) Mean Corpuscular Hemoglobin Concent 36 g/dL (31-37) 36 g/dL (31-37) Red Cell Distribution Width 13.0 % (11.5-14.5) 12.8 % (11.5-14.5) Platelet Count 320 x10^3/uL (140-400) 217 x10^3/uL (140-400) Neutrophils (%) (Auto) 92 % (31-73) 89 % (31-73) Lymphocytes (%) (Auto) 3 % (24-48) 7 % (24-48) Monocytes (%) (Auto) 4 % (0-9) 4 % (0-9) Eosinophils (%) (Auto) 0 % (0-3) 0 % (0-3) Basophils (%) (Auto) 0 % (0-3) 0 % (0-3) Neutrophils # (Auto) 15.7 x10^3uL (1.8-7.7) 9.7 x10^3uL (1.8-7.7) Lymphocytes # (Auto) 0.5 x10^3/uL (1.0-4.8) 0.8 x10^3/uL (1.0-4.8) Monocytes # (Auto) 0.7 x10^3/uL (0.0-1.1) 0.5 x10^3/uL (0.0-1.1) Eosinophils # (Auto) 0.0 x10^3/uL (0.0-0.7) 0.0 x10^3/uL (0.0-0.7) Basophils # (Auto) 0.0 x10^3/uL (0.0-0.2) 0.0 x10^3/uL (0.0-0.2) Segmented Neutrophils % 90 % (35-66) Lymphocytes % 5 % (24-48) Monocytes % 5 % (0-10) Platelet Estimate Adequate (ADEQUATE) Polychromasia Slight Anisocytosis Slight Prothrombin Time 14.7 SEC (11.7-14.0) Prothromb Time International Ratio 1.2 (0.8-1.1) Activated Partial Thromboplast Time 31 SEC (24-38) Sodium Level 112 mmol/L (136-145) 117 mmol/L (136-145) Potassium Level 7.0 mmol/L (3.5-5.1) 5.6 mmol/L (3.5-5.1) Chloride Level 73 mmol/L (98-107) 80 mmol/L (98-107) Carbon Dioxide Level 12 mmol/L (21-32) 10 mmol/L (21-32) Anion Gap 27 (6-14) 27 (6-14) Blood Urea Nitrogen 110 mg/dL (8-26) 112 mg/dL (8-26) Creatinine 13.4 mg/dL (0.7-1.3) 13.2 mg/dL (0.7-1.3) Estimated GFR (Cockcroft-Gault) 4.4 4.5 BUN/Creatinine Ratio 8 (6-20) 8 (6-20) Glucose Level 81 mg/dL (70-99) 70 mg/dL (70-99) Lactic Acid Level 1.1 mmol/L (0.4-2.0) Calcium Level 5.4 mg/dL (8.5-10.1) 5.0 mg/dL (8.5-10.1) Magnesium Level 3.0 mg/dL (1.8-2.4) Total Bilirubin 0.9 mg/dL (0.2-1.0) 0.6 mg/dL (0.2-1.0) Aspartate Amino Transf (AST/SGOT) 2923 U/L (15-37) 2204 U/L (15-37) Alanine Aminotransferase (ALT/SGPT) 818 U/L (16-63) 603 U/L (16-63) Alkaline Phosphatase 89 U/L (46-116) 71 U/L (46-116) Creatine Kinase > 562367 U/L (39-308) Troponin I Quantitative 0.352 ng/mL (0.000-0.055) Total Protein 7.0 g/dL (6.4-8.2) 6.2 g/dL (6.4-8.2) Albumin 3.4 g/dL (3.4-5.0) 2.6 g/dL (3.4-5.0) Albumin/Globulin Ratio 0.9 (1.0-1.7) 0.7 (1.0-1.7) Lipase 972 U/L (73-393) Ethyl Alcohol Level < 10 mg/dL (0-10) Urine Color Red Urine Clarity Clear Urine pH 6.0 Urine Specific [place] 1.020 Urine Protein >=300 mg/dL (NEG-TRACE) Urine Glucose (UA) 100 mg/dL (NEG) Urine Ketones (Stick) Trace mg/dL (NEG) Urine Blood Large (NEG) Urine Nitrite Positive (NEG) Urine Bilirubin Moderate (NEG) Urine Urobilinogen Dipstick 0.2 mg/dL (0.2 mg/dL) Urine Leukocyte Esterase Small (NEG) Urine RBC 3-5 /HPF (0-2) Urine WBC Occ /HPF (0-4) Urine Squamous Epithelial Cells None /LPF Urine Amorphous Sediment Present /HPF Urine Bacteria 0 /HPF (0-FEW) Urine Osmolality 324 mOsmol/kg (.) Urine Random Creatinine 199.6 mg/dL (Not Establ.) Urine Random Sodium <60 mmol/L (Not Estab.) Urine Opiates Screen Neg (NEG) Urine Methadone Screen Neg (NEG) Urine Barbiturates Neg (NEG) Urine Phencyclidine Screen Neg (NEG) Urine Amphetamine/Methamphetamine Pos (NEG) Urine Benzodiazepines Screen Neg (NEG) Urine Cocaine Screen Neg (NEG) Urine Cannabinoids Screen Neg (NEG) Urine Ethyl Alcohol Neg (NEG) Nasal Screen MRSA (PCR) Positive (Negative) Test 09/12/18 09:39 09/12/18 11:19 09/12/18 15:15 09/12/18 18:00 Erythrocyte Sedimentation Rate 35 (0-15) Sodium Level 117 mmol/L (136-145) 127 mmol/L (136-145) Potassium Level 6.6 mmol/L (3.5-5.1) 3.5 mmol/L (3.5-5.1) Chloride Level 81 mmol/L (98-107) 88 mmol/L (98-107) Carbon Dioxide Level 9 mmol/L (21-32) 21 mmol/L (21-32) Anion Gap 27 (6-14) 18 (6-14) Blood Urea Nitrogen 115 mg/dL (8-26) 69 mg/dL (8-26) Creatinine 13.4 mg/dL (0.7-1.3) 8.6 mg/dL (0.7-1.3) Estimated GFR (Cockcroft-Gault) 4.4 7.3 Glucose Level 81 mg/dL (70-99) 70 mg/dL (70-99) Calcium Level < 5.0 mg/dL (8.5-10.1) 5.6 mg/dL (8.5-10.1) Vitamin B12 Level 430 pg/mL (247-911) Thyroid Stimulating Hormone (TSH) 2.175 uIU/mL (0.358-3.74) CSF Tube Number 4 CSF Volume 3.0 CSF Color Colorless CSF Clarity Clear CSF WBC 3 /cmm (Not Established) CSF RBC 2 /cmm (Not Established) CSF Glucose 52 mg/dL (37-70) CSF Total Protein 53.2 mg/dL (15.0-45.0) Hepatitis A IgM Antibody Nonreactive (Nonreactive) Hepatitis B Surface Antigen Nonreactive (Nonreactive) Hepatitis B Surface Antibody, Quant <3.1 mIU/mL (Immunity>9.9) Hepatitis B Core Total Antibody Nonreactive (Nonreactive) Hepatitis B Core IgM Antibody Nonreactive (Nonreactive) Hepatitis C IgG Antibody Equivocal (Nonreactive) Test 09/12/18 21:20 09/13/18 06:15 Ionized Calcium 0.70 mmol/L (1.13-1.32) White Blood Count 7.6 x10^3/uL (4.0-11.0) Red Blood Count 3.69 x10^6/uL (4.30-5.70) Hemoglobin 10.9 g/dL (13.0-17.5) Hematocrit 30.6 % (39.0-53.0) Mean Corpuscular Volume 83 fL (79-100) Mean Corpuscular Hemoglobin 30 pg (25-35) Mean Corpuscular Hemoglobin Concent 36 g/dL (31-37) Red Cell Distribution Width 13.1 % (11.5-14.5) Platelet Count 148 x10^3/uL (140-400) Neutrophils (%) (Auto) 82 % (31-73) Lymphocytes (%) (Auto) 11 % (24-48) Monocytes (%) (Auto) 6 % (0-9) Eosinophils (%) (Auto) 1 % (0-3) Basophils (%) (Auto) 0 % (0-3) Neutrophils # (Auto) 6.2 x10^3/uL (1.8-7.7) Lymphocytes # (Auto) 0.8 x10^3/uL (1.0-4.8) Monocytes # (Auto) 0.4 x10^3/uL (0.0-1.1) Eosinophils # (Auto) 0.1 x10^3/uL (0.0-0.7) Basophils # (Auto) 0.0 x10^3/uL (0.0-0.2) Sodium Level 124 mmol/L (136-145) Potassium Level 4.3 mmol/L (3.5-5.1) Chloride Level 87 mmol/L (98-107) Carbon Dioxide Level 20 mmol/L (21-32) Anion Gap 17 (6-14) Blood Urea Nitrogen 84 mg/dL (8-26) Creatinine 10.4 mg/dL (0.7-1.3) Estimated GFR (Cockcroft-Gault) 5.9 BUN/Creatinine Ratio 8 (6-20) Glucose Level 91 mg/dL (70-99) Calcium Level 5.5 mg/dL (8.5-10.1) Magnesium Level 2.1 mg/dL (1.8-2.4) Total Bilirubin 0.5 mg/dL (0.2-1.0) Aspartate Amino Transf (AST/SGOT) 1017 U/L (15-37) Alanine Aminotransferase (ALT/SGPT) 412 U/L (16-63) Alkaline Phosphatase 65 U/L (46-116) Creatine Kinase > 328505 U/L (39-308) Total Protein 5.2 g/dL (6.4-8.2) Albumin 2.0 g/dL (3.4-5.0) Albumin/Globulin Ratio 0.6 (1.0-1.7) Laboratory Tests Test 09/12/18 15:15 09/12/18 18:00 09/12/18 21:20 09/13/18 06:15 Hepatitis A IgM Antibody Nonreactive (Nonreactive) Hepatitis B Surface Antigen Nonreactive (Nonreactive) Hepatitis B Surface Antibody, Quant <3.1 mIU/mL (Immunity>9.9) Hepatitis B Core Total Antibody Nonreactive (Nonreactive) Hepatitis B Core IgM Antibody Nonreactive (Nonreactive) Hepatitis C IgG Antibody Equivocal (Nonreactive) Sodium Level 127 mmol/L (136-145) 124 mmol/L (136-145) Potassium Level 3.5 mmol/L (3.5-5.1) 4.3 mmol/L (3.5-5.1) Chloride Level 88 mmol/L (98-107) 87 mmol/L (98-107) Carbon Dioxide Level 21 mmol/L (21-32) 20 mmol/L (21-32) Anion Gap 18 (6-14) 17 (6-14) Blood Urea Nitrogen 69 mg/dL (8-26) 84 mg/dL (8-26) Creatinine 8.6 mg/dL (0.7-1.3) 10.4 mg/dL (0.7-1.3) Estimated GFR (Cockcroft-Gault) 7.3 5.9 Glucose Level 70 mg/dL (70-99) 91 mg/dL (70-99) Calcium Level 5.6 mg/dL (8.5-10.1) 5.5 mg/dL (8.5-10.1) Ionized Calcium 0.70 mmol/L (1.13-1.32) White Blood Count 7.6 x10^3/uL (4.0-11.0) Red Blood Count 3.69 x10^6/uL (4.30-5.70) Hemoglobin 10.9 g/dL (13.0-17.5) Hematocrit 30.6 % (39.0-53.0) Mean Corpuscular Volume 83 fL (79-100) Mean Corpuscular Hemoglobin 30 pg (25-35) Mean Corpuscular Hemoglobin Concent 36 g/dL (31-37) Red Cell Distribution Width 13.1 % (11.5-14.5) Platelet Count 148 x10^3/uL (140-400) Neutrophils (%) (Auto) 82 % (31-73) Lymphocytes (%) (Auto) 11 % (24-48) Monocytes (%) (Auto) 6 % (0-9) Eosinophils (%) (Auto) 1 % (0-3) Basophils (%) (Auto) 0 % (0-3) Neutrophils # (Auto) 6.2 x10^3/uL (1.8-7.7) Lymphocytes # (Auto) 0.8 x10^3/uL (1.0-4.8) Monocytes # (Auto) 0.4 x10^3/uL (0.0-1.1) Eosinophils # (Auto) 0.1 x10^3/uL (0.0-0.7) Basophils # (Auto) 0.0 x10^3/uL (0.0-0.2) BUN/Creatinine Ratio 8 (6-20) Magnesium Level 2.1 mg/dL (1.8-2.4) Total Bilirubin 0.5 mg/dL (0.2-1.0) Aspartate Amino Transf (AST/SGOT) 1017 U/L (15-37) Alanine Aminotransferase (ALT/SGPT) 412 U/L (16-63) Alkaline Phosphatase 65 U/L (46-116) Creatine Kinase > 932411 U/L (39-308) Total Protein 5.2 g/dL (6.4-8.2) Albumin 2.0 g/dL (3.4-5.0) Albumin/Globulin Ratio 0.6 (1.0-1.7) Microbiology 09/12/18 Blood Culture - Preliminary, Resulted NO GROWTH AFTER 1 DAY 09/12/18 CSF Gram Stain - Final, Complete Medications Current Medications Morphine Sulfate (Morphine Sulfate) 4 mg 1X ONCE IV Last administered on 09/11/18at 21:20; Start 09/11/18 at 21:30; Stop 09/11/18 at 21:31; Status DC Sodium Chloride 1,000 ml @ 1,000 mls/hr 1X ONCE IV Last administered on 09/11/18at 22:30; Start 09/11/18 at 22:30; Stop 09/11/18 at 23:29; Status DC Calcium Gluconate (Calcium Gluconate) 1,000 mg 1X ONCE IVP Last administered on 09/11/18at 22:43; Start 09/11/18 at 23:00; Stop 09/11/18 at 23:01; Status DC Insulin Human Regular (HumuLIN R VIAL) 10 unit 1X ONCE IV Last administered on 09/11/18at 23:51; Start 09/11/18 at 23:00; Stop 09/11/18 at 23:01; Status DC Dextrose (Dextrose 50%-Water Syringe) 25 gm 1X ONCE IV Last administered on 09/11/18at 22:42; Start 09/11/18 at 23:00; Stop 09/11/18 at 23:01; Status DC Sodium Bicarbonate (Sodium Bicarb Adult 8.4% Syr) 50 meq 1X ONCE IV Last administered on 09/11/18at 23:49; Start 09/11/18 at 23:00; Stop 09/11/18 at 23:01; Status DC Sodium Chloride 1,000 ml @ 1,000 mls/hr 1X ONCE IV Last administered on 09/11/18at 23:50; Start 09/11/18 at 23:00; Stop 09/11/18 at 23:59; Status DC Albuterol Sulfate (Ventolin Neb Soln) 10 mg 1X ONCE CONT NEB Last administered on 09/12/18at 00:30; Start 09/11/18 at 23:00; Stop 09/11/18 at 23:01; Status DC Ceftriaxone Sodium (Rocephin) 1 gm 1X ONCE IVP Last administered on 09/11/18at 22:43; Start 09/11/18 at 23:00; Stop 09/11/18 at 23:01; Status DC Sodium Chloride 1,000 ml @ 1,000 mls/hr 1X ONCE IV Last administered on 09/12/18at 01:00; Start 09/12/18 at 01:00; Stop 09/12/18 at 01:59; Status DC Lorazepam (Ativan Inj) 0.5 mg PRN Q6HRS PRN IV ANXIETY / AGITATION Last administered on 09/12/18at 11:00; Start 09/12/18 at 01:15; Stop 09/13/18 at 08:48; Status DC Ondansetron HCl (Zofran) 4 mg PRN Q6HRS PRN IV NAUSEA/VOMITING 1ST CHOICE; Start 09/12/18 at 01:15; Stop 09/12/18 at 01:22; Status DC Sodium Chloride (Normal Saline Flush) 3 ml QSHIFT PRN IV AFTER MEDS AND BLOOD DRAWS; Start 09/12/18 at 01:15 Sodium Chloride 1,000 ml @ 175 mls/hr Q5H43M IV ; Start 09/12/18 at 01:08; Stop 09/12/18 at 01:23; Status DC Ondansetron HCl (Zofran) 4 mg PRN Q8HRS PRN IV NAUSEA/VOMITING 1ST CHOICE; Start 09/12/18 at 01:15; Stop 09/13/18 at 01:14; Status DC Sodium Chloride 1,000 ml @ 150 mls/hr Q6H40M IV ; Start 09/12/18 at 01:30; Stop 09/12/18 at 18:49; Status DC Morphine Sulfate (Morphine Sulfate) 4 mg PRN Q4HRS PRN IV SEVERE PAIN Last administered on 09/13/18at 13:35; Start 09/12/18 at 09:00 Sodium Bicarbonate (Sodium Bicarb Adult 8.4% Syr) 100 meq 1X ONCE IV Last administered on 09/12/18at 10:02; Start 09/12/18 at 10:00; Stop 09/12/18 at 10:01; Status DC Sodium Chloride 1,000 ml @ 1,000 mls/hr 1X ONCE IV Last administered on 09/12/18at 09:56; Start 09/12/18 at 10:00; Stop 09/12/18 at 10:59; Status DC Lidocaine/Sodium Bicarbonate (Buffered Lidocaine 1%) 3 ml STK-MED ONCE .ROUTE ; Start 09/12/18 at 11:07; Stop 09/12/18 at 11:08; Status DC Calcium Gluconate (Calcium Gluconate) 2,000 mg 1X ONCE IVP Last administered on 09/12/18at 13:38; Start 09/12/18 at 12:00; Stop 09/12/18 at 12:01; Status DC Ceftriaxone Sodium (Rocephin) 1 gm Q24H IVP Last administered on 09/12/18at 12:49; Start 09/12/18 at 13:00; Stop 09/13/18 at 07:45; Status DC Silver Sulfadiazine (Silvadene) 1 elinor BID TP Last administered on 09/13/18at 10:06; Start 09/12/18 at 13:00 Sodium Chloride 1,000 ml @ 1,000 mls/hr 1X ONCE IV Last administered on 09/12/18at 12:47; Start 09/12/18 at 12:45; Stop 09/12/18 at 13:44; Status DC Pantoprazole Sodium (Protonix) 40 mg DAILYAC PO ; Start 09/12/18 at 13:30; Stop 09/12/18 at 19:22; Status DC Polyethylene Glycol (miraLAX PACKET) 17 gm DAILY PO ; Start 09/12/18 at 13:30 Lidocaine/Sodium Bicarbonate (Buffered Lidocaine 1%) 3 ml STK-MED ONCE .ROUTE ; Start 09/12/18 at 13:48; Stop 09/12/18 at 13:49; Status DC Haloperidol Lactate (Haldol Inj) 1 mg PRN Q8HRS PRN IVP AGITATION Last administered on 09/13/18at 00:35; Start 09/12/18 at 14:00 Lorazepam (Ativan Inj) 2 mg PRN Q2HRS PRN IV ANXIETY / AGITATION Last administered on 09/13/18at 04:25; Start 09/12/18 at 14:00 Lidocaine/Sodium Bicarbonate (Buffered Lidocaine 1%) 6 ml 1X ONCE INJ ; Start 09/12/18 at 14:15; Stop 09/12/18 at 14:16; Status DC Dexmedetomidine HCl 200 mcg/ Sodium Chloride 50 ml @ 0 mls/hr CONT PRN IV PER PROTOCOL Last administered on 09/13/18at 12:57; Start 09/12/18 at 14:15 Sodium Chloride 500 ml @ 500 mls/hr 1X PRN PRN IV SEE COMMENTS; Start 09/12/18 at 14:15 Atropine Sulfate (ATROPINE 0.5mg SYRINGE) 0.5 mg PRN Q5MIN PRN IV SEE COMMENTS; Start 09/12/18 at 14:15 Sodium Chloride 1,000 ml @ 1,000 mls/hr Q1H PRN IV hypotension; Start 09/12/18 at 15:08; Stop 09/12/18 at 21:07; Status DC Diphenhydramine HCl (Benadryl) 25 mg 1X PRN PRN IV ITCHING; Start 09/12/18 at 15:15; Stop 09/13/18 at 11:19; Status DC Diphenhydramine HCl (Benadryl) 25 mg 1X PRN PRN IV ITCHING; Start 09/12/18 at 15:15; Stop 09/13/18 at 11:19; Status DC Sodium Chloride 1,000 ml @ 400 mls/hr Q2H30M PRN IV PATENCY; Start 09/12/18 at 15:08; Stop 09/13/18 at 03:07; Status DC Info (PHARMACY MONITORING -- do not chart) 1 each PRN DAILY PRN MC SEE COMMENTS; Start 09/12/18 at 15:15; Stop 09/13/18 at 11:18; Status DC Pantoprazole Sodium (PROTONIX VIAL for IV PUSH) 40 mg DAILYAC IVP Last administered on 09/13/18at 07:45; Start 09/13/18 at 07:30 Linezolid (Zyvox) 600 mg BID PO Last administered on 09/13/18at 14:14; Start 09/13/18 at 09:00 Ceftriaxone Sodium (Rocephin) 2 gm Q24H IVP Last administered on 09/13/18at 14:39; Start 09/13/18 at 13:00 Calcium Gluconate 2000 mg/Dextrose 120 ml @ 220 mls/hr 1X ONCE IV Last administered on 09/13/18at 10:05; Start 09/13/18 at 10:00; Stop 09/13/18 at 10:32; Status DC Sodium Chloride 1,000 ml @ 1,000 mls/hr Q1H PRN IV hypotension; Start 09/13/18 at 11:06; Stop 09/13/18 at 17:05 Diphenhydramine HCl (Benadryl) 25 mg 1X PRN PRN IV ITCHING; Start 09/13/18 at 11:15; Stop 09/14/18 at 11:14 Diphenhydramine HCl (Benadryl) 25 mg 1X PRN PRN IV ITCHING; Start 09/13/18 at 11:15; Stop 09/14/18 at 11:14 Sodium Chloride 1,000 ml @ 400 mls/hr Q2H30M PRN IV PATENCY; Start 09/13/18 at 11:06; Stop 09/13/18 at 23:05 Info (PHARMACY MONITORING -- do not chart) 1 each PRN DAILY PRN MC SEE COMMENTS; Start 09/13/18 at 11:15 Active Scripts Active Reported Protonix (Pantoprazole Sodium) 20 Mg Tablet.dr 2 Tab PO DAILY Zyprexa (Olanzapine) 20 Mg Tablet 2 Tab PO QHS Buspirone Hcl 30 Mg Tablet 1 Tab PO BID Vitals/I & O Vital Sign - Last 24 Hours 09/12/18 09/12/18 09/12/18 09/12/18 15:15 15:49 16:00 16:00 Pulse 92 Resp 20 18 20 B/P (MAP) 129/68 (88) 110/59 (76) Pulse Ox 98 97 O2 Delivery Room Air Room Air Room Air Room Air 09/12/18 09/12/18 09/12/18 09/12/18 17:00 18:00 19:00 19:49 Temp 98.1 98.1 Pulse 70 88 86 Resp 20 20 16 15 B/P (MAP) 139/76 (97) 108/49 (68) 102/52 (69) Pulse Ox 97 97 98 98 O2 Delivery Room Air Room Air Room Air Room Air 09/12/18 09/12/18 09/12/18 09/12/18 20:00 20:00 21:00 22:00 Temp 98.2 98.2 Pulse 89 86 88 Resp 20 15 16 B/P (MAP) 103/48 (66) 102/50 (67) 109/55 (73) Pulse Ox 95 97 96 O2 Delivery Room Air Room Air Room Air Room Air 09/12/18 09/12/18 09/13/18 09/13/18 23:00 23:44 00:00 00:36 Temp 98.1 98.1 Pulse 88 89 Resp 15 15 19 B/P (MAP) 109/54 (72) 96/43 (60) Pulse Ox 96 96 96 O2 Delivery Room Air Room Air Room Air Room Air 09/13/18 09/13/18 09/13/18 09/13/18 01:00 02:00 03:00 03:37 Pulse 89 84 87 Resp 15 17 15 B/P (MAP) 115/62 (79) 129/67 (87) 105/52 (69) Pulse Ox 94 95 96 O2 Delivery Room Air Room Air Room Air Room Air 09/13/18 09/13/18 09/13/18 09/13/18 04:00 04:26 05:00 06:00 Temp 98.1 98.1 Pulse 86 86 69 Resp 15 16 16 16 B/P (MAP) 105/52 (69) 100/49 (66) 104/49 (67) Pulse Ox 95 95 95 96 O2 Delivery Room Air Room Air Room Air Room Air 09/13/18 09/13/18 09/13/18 09/13/18 07:00 07:45 08:00 09:00 Temp 97.8 97.8 Pulse 83 83 82 Resp 17 17 17 B/P (MAP) 106/52 (70) 105/44 (64) 111/53 (72) Pulse Ox 92 92 93 O2 Delivery Room Air Room Air Room Air Room Air 09/13/18 09/13/18 09/13/18 09/13/18 10:00 11:00 12:00 12:00 Temp 98.1 98.1 Pulse 81 82 82 Resp 23 14 15 B/P (MAP) 110/50 (70) 100/73 (82) 134/65 (88) Pulse Ox 96 96 94 O2 Delivery Room Air Room Air Room Air Room Air 09/13/18 09/13/18 09/13/18 09/13/18 13:00 13:35 14:00 14:05 Pulse 88 104 Resp 14 17 28 17 B/P (MAP) 116/51 (72) 129/68 (88) Pulse Ox 95 94 94 95 O2 Delivery Room Air Room Air Room Air Room Air Intake and Output 09/12/18 09/12/18 09/13/18 15:00 23:00 07:00 Intake Total 2100 ml 1060 ml 166 ml Output Total 50 ml 20 ml 5 ml Balance 2050 ml 1040 ml 161 ml CASPER MONTGOMERY MD Sep 13, 2018 15:06
--- NOTE | 2018-09-13 16:34 | CONS ---
DATE OF CONSULTATION: 09/13/2018 REFERRING PHYSICIAN: Dr. Lofton. REASON FOR CONSULTATION: Right hand cellulitis, burn to the thumb and first finger antibiotic management. HISTORY OF PRESENT ILLNESS: A 28-year-old male who was released from [facility] on 09/07/2018, was brought in by EMS to the [facility] ED due to history of fall and unable to get up along with numbness down his legs. The patient has history of anxiety, depression, meth abuse, cocaine abuse with injection, history of IV drug abuse. The patient was out doing meth with a girl and started noticing numbness down his legs, became weak and fell. The patient was afebrile. White count was elevated, CK was 100,000, creatinine of 13, BUN of 112, bicarb of 10, sodium of 117. Elevated transaminitis and severe metabolic acidosis. The patient also had severe hypocalcemia. The patient had cervical, lumbar and thoracic spine MRI. Neurology was consulted. Neurosurgery was consulted. The patient is not a surgical candidate. Chest x-ray showed mild pulmonary venous congestion with fluid overload. The patient underwent right IJ double lumen central venous catheter placement. The patient also was found to have urinary retention with 900 mL of urine during bladder scan yesterday. The patient had a Fernandez placed. Very minimal urine output. The patient was started on empiric ceftriaxone for right hand cellulitis and rapp of the index finger. ID consult has been requested for antibiotic management. Today, the patient is sleepy, answers just a few questions, says he sustained burn on fingers while smoking. He has had HIV done at the nursing home recently and was reportedly negative. Denies any history of STDs.He has h/o IV drug use with cocaine. He has had multiple tubbs on extremities. He denies any pain in the hand. Still has weakness in both the lower extremities with paresthesias but improving slowly. Denies any fevers or chills. No headache, nausea, vomiting or diarrhea. He denies any sick contact. Does have generalized aches and pains. Denies any history of recurrent skin and soft tissue infection. PAST MEDICAL HISTORY: GERD, peptic ulcer disease, substance abuse. FAMILY HISTORY: As per HPI. SOCIAL HISTORY: Smoking: Present. ETOH: Present. Drugs: Crystal meth, history of IVDU. REVIEW OF SYSTEMS: Limited, but as above in HPI. ALLERGIES: No known drug allergies. MEDICATIONS: Ceftriaxone. Other medications reviewed in medication list. PHYSICAL EXAMINATION: VITAL SIGNS: Temperature 98.3, pulse 105, respiratory rate 27, blood pressure 146/95, oxygen saturation 98% on room air. GENERAL: Lethargic male lying comfortably in bed, in no acute distress. HEENT: Normocephalic, atraumatic. Anicteric. Oral mucosa moist. No thrush. No oropharyngeal exudate. NECK: Supple. LUNGS: Clear bilaterally. No wheezing. HEART: S1, S2, regular rate. ABDOMEN: Soft, nontender. EXTREMITIES: Edema present, burn with ulceration over the thumb and the finger in the right hand, superficial. No sinus tract noted. Mild swelling present over the dorsum of the hand. No wrist swelling. Multiple tubbs over both upper and lower extremity. Edema over both lower extremities. CENTRAL NERVOUS SYSTEM: Moves all 4 extremities. PSYCHIATRY: Calm, cooperative. LABORATORY DATA: WBC 7.6, it was 17.0; hemoglobin 10.9, it was 13.9; hematocrit 30.9; platelets 146, neutrophils 82, ESR 35. Sodium 127, potassium 3.5, chloride 88, bicarb 21, BUN 69; creatinine 8.6, it was 13.4. Calcium 5.6, lactate 1.1, ionized calcium 0.70, B12 of 420, TSH 2.17, AST 2204, ALT 603, alkaline phosphatase 71. CK greater than 100,000. Total protein 6.2, albumin 2.6, lipase 972. UDS positive for amphetamine, methamphetamine. CSF: WBC 3, RBC 2, glucose 52, total protein 53.2. Hepatitis profile; hepatitis C IgG antibody equivocal, otherwise nonreactive. MRSA screen positive. Micro blood culture negative. CSF: Occasional WBC, no organism seen. IMAGING: Chest x-ray, cervical spine MRI, thoracic spine MRI, ultrasound of the abdomen, lumbar MRI noted with abnormalities. IMPRESSION: 1. Right hand burn to index finger with cellulitis, superficial. No evidence of sinus tract. 2. History of intravenous drug user. 3. Leukocytosis, likely reactive. 4. History of fall with rhabdomyolysis. 5. Hyponatremia, hyperkalemia, severe metabolic acidosis, acute kidney injury. 6. Transaminitis. 7. Methicillin-resistant Staphylococcus aureus screen positive. 8. Bilateral lower extremity weakness, numbness and history of fall prior to admission. 9. Urinary retention. 10. Paresthesia. 11. Abnormal T2 signal within the right greater than left paraspinal musculature and psoas, which can be seen with edema in these regions. Neurology and Neurosurgery consulted. 12. Gallbladder sludge on ultrasound. 13. Hematuria with occasional wbc's on urinalysis. RECOMMENDATIONS: 1. Continue Rocephin. 2. We will add empiric Zyvox. 3. Obtain x-ray of the right hand. 4. Continue local wound care. 5. Continue supportive care. 6. We will obtain HIV antibody screen. The patient gave verbal consent. 7. We will obtain RPR. 8. Continue supportive care. 9. Discussed with RN. Thank you for allowing Infectious Disease to participate in this patient's care. We will follow along with you. ANGÉLICA JOSÉ MD DR: EVELIN/arpit JOB#: [id number] / [id number] PHOEBE
--- NOTE | 2018-09-13 20:35 | NUR ---
Patient pulls off gown, pulls off transparent dressing on trialysis catheter, mitts placed bilaterally, trialysis cath site cleansed in sterile fashion with mask, adherent pad over side of patient's face to prevent breathing on the open site, sterile transparent dressing applied with disc around tube. To monitor.
[2018-09-14] VITALS (24 sets, daily range): BP systolic 111–149; BP diastolic 54–84
[2018-09-14] MEDS: DEXMEDETOMIDINE 200 MCG in IV NORMAL SALINE 50ML 48 ML IV PRN ×7 (01:35→22:05)
[2018-09-14] MEDS: MORPHINE SULFATE 4 MG/ML VIAL. IV PRN ×3 (03:20→23:29)
--- NOTE | 2018-09-14 07:31 | PDOC ---
Infectious Disease Note Subjective: Subjective pt is sitting in chair did pt and ot was able to take a few steps yesterday denies any pain no f/c/n/v/d ROS: ROS Negative except for above. Vital Signs: Vital Signs Vital Signs Date Time Temp Pulse Resp B/P (MAP) Pulse Ox O2 Delivery O2 Flow Rate FiO2 09/14/18 06:00 80 18 139/79 (99) 95 Room Air 09/14/18 04:20 97.8 97.8 09/13/18 19:50 98.0 Physical Exam: PHYSICAL EXAM GENERAL: Lethargic male in chair, more alert than yesterday in no acute distress.comfortable in mitts, HEENT: Normocephalic, atraumatic. Anicteric. Oral mucosa moist. No thrush. No oropharyngeal exudate. NECK: Supple. LUNGS: Clear bilaterally. No wheezing. HEART: S1, S2, regular rate. ABDOMEN: Soft, nontender. EXTREMITIES: Edema present, burn with ulceration over the thumb and the finger in the right hand, superficial. No sinus tract noted. Mild swelling present over the dorsum of the hand. No wrist swelling. Multiple tubbs over both upper and lower extremity. Edema over both lower extremities. CENTRAL NERVOUS SYSTEM: Moves all 4 extremities. PSYCHIATRY: Calm, cooperative. Medications: Inpatient Meds: Current Medications Medications (Trade) Dose Ordered Sig/Mirela Start Time Stop Time Status Last Admin Dose Admin Albuterol Sulfate (Ventolin Neb Soln) 10 mg 1X ONCE 09/11/18 23:00 09/11/18 23:01 DC 09/12/18 00:30 10 MG Atropine Sulfate (ATROPINE 0.5mg SYRINGE) 0.5 mg PRN Q5MIN PRN 09/12/18 14:15 Calcium Gluconate (Calcium Gluconate) 2,000 mg 1X ONCE 09/12/18 12:00 09/12/18 12:01 DC 09/12/18 13:38 2,000 MG Calcium Gluconate 2000 mg/Dextrose 120 ml @ 220 mls/hr 1X ONCE 09/13/18 10:00 09/13/18 10:32 DC 09/13/18 10:05 220 MLS/HR Ceftriaxone Sodium (Rocephin) 2 gm Q24H 09/13/18 13:00 09/13/18 14:39 2 GM Dexmedetomidine HCl 200 mcg/ Sodium Chloride 50 ml @ 0 mls/hr CONT PRN 09/12/18 14:15 09/14/18 04:35 12 MLS/HR Dextrose (Dextrose 50%-Water Syringe) 25 gm 1X ONCE 09/11/18 23:00 09/11/18 23:01 DC 09/11/18 22:42 25 GM Diphenhydramine HCl (Benadryl) 25 mg 1X PRN PRN 09/13/18 11:15 09/14/18 11:14 Haloperidol Lactate (Haldol Inj) 1 mg PRN Q8HRS PRN 09/12/18 14:00 09/13/18 00:35 1 MG Info (PHARMACY MONITORING -- do not chart) 1 each PRN DAILY PRN 09/13/18 11:15 Insulin Human Regular (HumuLIN R VIAL) 10 unit 1X ONCE 09/11/18 23:00 09/11/18 23:01 DC 09/11/18 23:51 10 UNIT Lidocaine/Sodium Bicarbonate (Buffered Lidocaine 1%) 6 ml 1X ONCE 09/12/18 14:15 09/12/18 14:16 DC Linezolid (Zyvox) 600 mg BID 09/13/18 09:00 09/13/18 14:14 600 MG Lorazepam (Ativan Inj) 2 mg PRN Q2HRS PRN 09/12/18 14:00 09/14/18 03:21 2 MG Morphine Sulfate (Morphine Sulfate) 4 mg PRN Q4HRS PRN 09/12/18 09:00 09/14/18 03:20 4 MG Ondansetron HCl (Zofran) 4 mg PRN Q8HRS PRN 09/12/18 01:15 09/13/18 01:14 DC Pantoprazole Sodium (PROTONIX VIAL for IV PUSH) 40 mg DAILYAC 09/13/18 07:30 09/13/18 07:45 40 MG Pantoprazole Sodium (Protonix) 40 mg DAILYAC 09/12/18 13:30 09/12/18 19:22 DC Polyethylene Glycol (miraLAX PACKET) 17 gm DAILY 09/12/18 13:30 Silver Sulfadiazine (Silvadene) 1 elinor BID 09/12/18 13:00 09/13/18 15:04 DC 09/13/18 10:06 1 ELINOR Sodium Bicarbonate (Sodium Bicarb Adult 8.4% Syr) 100 meq 1X ONCE 09/12/18 10:00 09/12/18 10:01 DC 09/12/18 10:02 100 MEQ Sodium Chloride 1,000 ml @ 400 mls/hr Q2H30M PRN 09/13/18 11:06 09/13/18 23:05 DC Sodium Chloride (Normal Saline Flush) 3 ml QSHIFT PRN 09/12/18 01:15 Objective: Assessment: 1. Right hand burn to index finger with cellulitis, superficial. No evidence of sinus tract. X ray neg 2. History of intravenous drug use 3. Leukocytosis, likely reactive.resolved 4. History of fall with rhabdomyolysis. 5. Hyponatremia, hyperkalemia, severe metabolic acidosis, acute kidney injury on HD. 6. Transaminitis. Gallbladder sludge on ultrasound. 7. Methicillin-resistant Staphylococcus aureus screen positive. 8. Bilateral lower extremity weakness, numbness and history of fall prior to admission. 9. Urinary retention. 10. Paresthesia. 11. Abnormal T2 signal within the right greater than left paraspinal musculature and psoas, which can be seen with edema in these regions. Neurology and Neurosurgery consulted. 12. Hematuria with occasional wbc's on urinalysis. Plan: Plan of Care Cont rocephin and Zyvox. Continue local wound care. f/u HIV antibody screen and RPR. local wound care Continue supportive care. Discussed with VIPIN. ANGÉLICA JOSÉ MD Sep 14, 2018 07:31
[2018-09-14 07:32] LABS: BASO % 1 % (0-3); EOS # 0.2 x10^3/uL (0.0-0.7); EOS % 3 % (0-3); HEMATOCRIT 32.6 % (39.0-53.0); HEMOGLOBIN 11.4 g/dL (13.0-17.5); LYMPH % 15 % (24-48); MEAN CORPUSCULAR HEMOGLOBIN 29 pg (25-35); MEAN CORPUSCULAR HGB CONC 35 g/dL (31-37); MEAN CORPUSCULAR VOLUME 83 fL (79-100); MONO # 0.3 x10^3/uL (0.0-1.1); MONO % 5 % (0-9); NEUT # 4.9 x10^3/uL (1.8-7.7); NEUT % 76 % (31-73); PLATELET COUNT 166 x10^3/uL (140-400); RED BLOOD COUNT 3.91 x10^6/uL (4.30-5.70); RED CELL DISTRIBUTION WIDTH 12.9 % (11.5-14.5); WHITE BLOOD COUNT 6.5 x10^3/uL (4.0-11.0)
--- NOTE | 2018-09-14 07:45 | CONS ---
DATE OF CONSULTATION: 09/14/2018 REQUESTING PHYSICIAN: Dr. Lofton. REASON FOR CONSULTATION: Right hand cisneros, I actually did not receive a formal call for a consult. Nevertheless, the patient was on my list and the patient's ICU nurse confirmed that I apparently was on the consult list and therefore I am evaluating the patient as requested. HISTORY OF PRESENT ILLNESS: History was obtained from chart review as the patient is currently sedated, but apparently patient is a 28-year-old male that was [facility] and apparently was using methamphetamine when he developed numbness in his legs, then weakness and fell. He was unable to bear weight and could not move his legs and has other multiple medical problems including liver problems, hypocalcemia and was found to have cisneros on his right hand from use of a mouth pipe. PAST MEDICAL HISTORY: Significant for stomach ulcers, reflux disease and substance abuse. FAMILY HISTORY: Noncontributory. SOCIAL HISTORY: Drug use including crystal meth and other IV drug abuse, also has a history of smoking and alcohol. ALLERGIES: No known drug allergies. MEDICATIONS: Include ongoing antibiotics for infectious disease and his medication list is reviewed. REVIEW OF SYSTEMS: Not possible due to his sedation. PHYSICAL EXAMINATION: EXTREMITIES: Examination of his right hand, he has multiple areas where his skin is compromised including along the radial aspect of the index finger approximately over the middle phalange about a dime-sized area and over the ulnar aspect of the thumb has about a 1 cm round area of the large burn involving the skin. He has two smaller areas on both the thumb and index finger with compromise of the dermis of the skin. There is really minimal surrounding redness or erythema. No exposed tendon sheath. Neurovascular structures or fascia is currently visible. He does have some slight maceration around the areas that were appropriately dressed within his restraint meds that were placed due to him apparently pulling out his IVs and other equipment due to his agitation. Normal examination of the contralateral hand, bilateral elbows and shoulders in terms of his alignment, ligament stability. Obviously sensation or any active range of motion is not possible due to his sedation. IMPRESSION: Cisneros to his right hand, thumb and index finger involving the dermis. TREATMENT PLAN: Given his multiple medical problems with liver and kidney compromise and neurologic compromise, I really do not think any debridement is advised of his hand at this point. I would recommend ongoing wound care and IV antibiotics, which are being administered by Infectious Disease. Depending on the progress of his wounds and recovery, if his wounds tend to declare somewhat more and need further debridement that can be done based on their appearance and his medical progression. I will continue to follow along as necessary from an orthopedic standpoint, but certainly note that he may eventually need the services of a hand surgeon if there is further deep compromise of his tissue requiring skin grafting or other specialized procedures for coverage if necessary. NNAMDI DESAI MD DR: PAUL/nts JOB#: [id number] / [id number]
[2018-09-14] MEDS: HALOPERIDOL LACTATE 5 MG/ML VIAL. IVP PRN (07:56)
[2018-09-14 07:58] LABS: ALBUMIN 1.8 g/dL (3.4-5.0); ALBUMIN/GLOBULIN RATIO 0.6 (1.0-1.7); CALCIUM 6.7 mg/dL (8.5-10.1); CREATININE 8.4 mg/dL (0.7-1.3); GFR 7.5; POTASSIUM 3.5 mmol/L (3.5-5.1); TOTAL BILIRUBIN 0.5 mg/dL (0.2-1.0)
[2018-09-14] MEDS: PANTOPRAZOLE IV PUSH 40 MG VIAL. IVP SCH (08:02)
--- NOTE | 2018-09-14 08:49 | PDOC ---
PROGRESS NOTES Assessment Problems Medical Problems: (1) Elevated troponin Status: Acute (2) Hepatorenal syndrome Status: Acute (3) Hyperkalemia Status: Acute (4) Hyponatremia Status: Acute (5) Methamphetamine abuse Status: Acute (6) Neurological complaint Status: Acute (7) Rhabdomyolysis Status: Acute (8) Urinary retention Status: Acute (9) Urinary tract infection Status: Acute Bilateral leg weakness and numbness, factitious disorder, was able to walk to chair earlier But he has rhabdomyolysis and some edema of the psoas muscle on the MRI, Methamphetamine abuse. Plan Hold on repeat MRI studies Supportive ICU care for rhabdomyolysis, renal insufficiency, and other medical problems. He is getting dialysis Wean off Precedex Physical and occupational therapy. Subjective none Objective Vital Signs Date Time Temp Pulse Resp B/P (MAP) Pulse Ox O2 Delivery O2 Flow Rate FiO2 09/14/18 06:00 80 18 139/79 (99) 95 Room Air 09/14/18 04:20 97.8 97.8 09/13/18 19:50 98.0 Intake and Output 09/14/18 06:59 Intake Total 1580 ml Output Total 20 ml Balance 1560 ml Intake Oral 1020 ml IV Total 560 ml Output Urine Total 20 ml PHYSICAL EXAM Sleepy, on Precedex PERRL. EOMI. CN: no focal findings. Muscle tone: normal. Muscle strength: Not cooperative DTR: 2+ Plantar reflex: Flexor Gait: not examined in bed. Sensory exam: Not cooperative Cerebellar: not cooperative Review of Relevant I have reviewed the following items ashlie (where applicable) has been applied. Labs Laboratory Tests Test 09/12/18 09:39 09/12/18 11:19 09/12/18 15:15 09/12/18 18:00 Erythrocyte Sedimentation Rate 35 (0-15) Sodium Level 117 mmol/L (136-145) 127 mmol/L (136-145) Potassium Level 6.6 mmol/L (3.5-5.1) 3.5 mmol/L (3.5-5.1) Chloride Level 81 mmol/L (98-107) 88 mmol/L (98-107) Carbon Dioxide Level 9 mmol/L (21-32) 21 mmol/L (21-32) Anion Gap 27 (6-14) 18 (6-14) Blood Urea Nitrogen 115 mg/dL (8-26) 69 mg/dL (8-26) Creatinine 13.4 mg/dL (0.7-1.3) 8.6 mg/dL (0.7-1.3) Estimated GFR (Cockcroft-Gault) 4.4 7.3 Glucose Level 81 mg/dL (70-99) 70 mg/dL (70-99) Calcium Level < 5.0 mg/dL (8.5-10.1) 5.6 mg/dL (8.5-10.1) Vitamin B12 Level 430 pg/mL (247-911) Thyroid Stimulating Hormone (TSH) 2.175 uIU/mL (0.358-3.74) CSF Tube Number 4 CSF Volume 3.0 CSF Color Colorless CSF Clarity Clear CSF WBC 3 /cmm (Not Established) CSF RBC 2 /cmm (Not Established) CSF Glucose 52 mg/dL (37-70) CSF Total Protein 53.2 mg/dL (15.0-45.0) Hepatitis A IgM Antibody Nonreactive (Nonreactive) Hepatitis B Surface Antigen Nonreactive (Nonreactive) Hepatitis B Surface Antibody, Quant <3.1 mIU/mL (Immunity>9.9) Hepatitis B Core Total Antibody Nonreactive (Nonreactive) Hepatitis B Core IgM Antibody Nonreactive (Nonreactive) Hepatitis C IgG Antibody Equivocal (Nonreactive) Test 09/12/18 21:20 09/13/18 06:15 09/14/18 06:30 Ionized Calcium 0.70 mmol/L (1.13-1.32) White Blood Count 7.6 x10^3/uL (4.0-11.0) 6.5 x10^3/uL (4.0-11.0) Red Blood Count 3.69 x10^6/uL (4.30-5.70) 3.91 x10^6/uL (4.30-5.70) Hemoglobin 10.9 g/dL (13.0-17.5) 11.4 g/dL (13.0-17.5) Hematocrit 30.6 % (39.0-53.0) 32.6 % (39.0-53.0) Mean Corpuscular Volume 83 fL (79-100) 83 fL (79-100) Mean Corpuscular Hemoglobin 30 pg (25-35) 29 pg (25-35) Mean Corpuscular Hemoglobin Concent 36 g/dL (31-37) 35 g/dL (31-37) Red Cell Distribution Width 13.1 % (11.5-14.5) 12.9 % (11.5-14.5) Platelet Count 148 x10^3/uL (140-400) 166 x10^3/uL (140-400) Neutrophils (%) (Auto) 82 % (31-73) 76 % (31-73) Lymphocytes (%) (Auto) 11 % (24-48) 15 % (24-48) Monocytes (%) (Auto) 6 % (0-9) 5 % (0-9) Eosinophils (%) (Auto) 1 % (0-3) 3 % (0-3) Basophils (%) (Auto) 0 % (0-3) 1 % (0-3) Neutrophils # (Auto) 6.2 x10^3/uL (1.8-7.7) 4.9 x10^3/uL (1.8-7.7) Lymphocytes # (Auto) 0.8 x10^3/uL (1.0-4.8) 1.0 x10^3/uL (1.0-4.8) Monocytes # (Auto) 0.4 x10^3/uL (0.0-1.1) 0.3 x10^3/uL (0.0-1.1) Eosinophils # (Auto) 0.1 x10^3/uL (0.0-0.7) 0.2 x10^3/uL (0.0-0.7) Basophils # (Auto) 0.0 x10^3/uL (0.0-0.2) 0.0 x10^3/uL (0.0-0.2) Sodium Level 124 mmol/L (136-145) 129 mmol/L (136-145) Potassium Level 4.3 mmol/L (3.5-5.1) 3.5 mmol/L (3.5-5.1) Chloride Level 87 mmol/L (98-107) 91 mmol/L (98-107) Carbon Dioxide Level 20 mmol/L (21-32) 27 mmol/L (21-32) Anion Gap 17 (6-14) 11 (6-14) Blood Urea Nitrogen 84 mg/dL (8-26) 57 mg/dL (8-26) Creatinine 10.4 mg/dL (0.7-1.3) 8.4 mg/dL (0.7-1.3) Estimated GFR (Cockcroft-Gault) 5.9 7.5 BUN/Creatinine Ratio 8 (6-20) 7 (6-20) Glucose Level 91 mg/dL (70-99) 80 mg/dL (70-99) Calcium Level 5.5 mg/dL (8.5-10.1) 6.7 mg/dL (8.5-10.1) Magnesium Level 2.1 mg/dL (1.8-2.4) Total Bilirubin 0.5 mg/dL (0.2-1.0) 0.5 mg/dL (0.2-1.0) Aspartate Amino Transf (AST/SGOT) 1017 U/L (15-37) 653 U/L (15-37) Alanine Aminotransferase (ALT/SGPT) 412 U/L (16-63) 307 U/L (16-63) Alkaline Phosphatase 65 U/L (46-116) 57 U/L (46-116) Creatine Kinase > 063913 U/L (39-308) Total Protein 5.2 g/dL (6.4-8.2) 5.0 g/dL (6.4-8.2) Albumin 2.0 g/dL (3.4-5.0) 1.8 g/dL (3.4-5.0) Albumin/Globulin Ratio 0.6 (1.0-1.7) 0.6 (1.0-1.7) Laboratory Tests Test 09/14/18 06:30 White Blood Count 6.5 x10^3/uL (4.0-11.0) Red Blood Count 3.91 x10^6/uL (4.30-5.70) Hemoglobin 11.4 g/dL (13.0-17.5) Hematocrit 32.6 % (39.0-53.0) Mean Corpuscular Volume 83 fL (79-100) Mean Corpuscular Hemoglobin 29 pg (25-35) Mean Corpuscular Hemoglobin Concent 35 g/dL (31-37) Red Cell Distribution Width 12.9 % (11.5-14.5) Platelet Count 166 x10^3/uL (140-400) Neutrophils (%) (Auto) 76 % (31-73) Lymphocytes (%) (Auto) 15 % (24-48) Monocytes (%) (Auto) 5 % (0-9) Eosinophils (%) (Auto) 3 % (0-3) Basophils (%) (Auto) 1 % (0-3) Neutrophils # (Auto) 4.9 x10^3/uL (1.8-7.7) Lymphocytes # (Auto) 1.0 x10^3/uL (1.0-4.8) Monocytes # (Auto) 0.3 x10^3/uL (0.0-1.1) Eosinophils # (Auto) 0.2 x10^3/uL (0.0-0.7) Basophils # (Auto) 0.0 x10^3/uL (0.0-0.2) Sodium Level 129 mmol/L (136-145) Potassium Level 3.5 mmol/L (3.5-5.1) Chloride Level 91 mmol/L (98-107) Carbon Dioxide Level 27 mmol/L (21-32) Anion Gap 11 (6-14) Blood Urea Nitrogen 57 mg/dL (8-26) Creatinine 8.4 mg/dL (0.7-1.3) Estimated GFR (Cockcroft-Gault) 7.5 BUN/Creatinine Ratio 7 (6-20) Glucose Level 80 mg/dL (70-99) Calcium Level 6.7 mg/dL (8.5-10.1) Total Bilirubin 0.5 mg/dL (0.2-1.0) Aspartate Amino Transf (AST/SGOT) 653 U/L (15-37) Alanine Aminotransferase (ALT/SGPT) 307 U/L (16-63) Alkaline Phosphatase 57 U/L (46-116) Total Protein 5.0 g/dL (6.4-8.2) Albumin 1.8 g/dL (3.4-5.0) Albumin/Globulin Ratio 0.6 (1.0-1.7) Microbiology 09/12/18 Blood Culture - Preliminary, Resulted NO GROWTH AFTER 2 DAYS 09/12/18 CSF Gram Stain - Final, Complete 09/11/18 Urine Culture - Final, Complete 09/11/18 Urine Culture Result 1 ([place]) - Final, Complete Medications Current Medications Morphine Sulfate (Morphine Sulfate) 4 mg 1X ONCE IV Last administered on 09/11/18 21:20; Start 09/11/18 at 21:30; Stop 09/11/18 at 21:31; Status DC Sodium Chloride 1,000 ml @ 1,000 mls/hr 1X ONCE IV Last administered on 09/11/18at 22:30; Start 09/11/18 at 22:30; Stop 09/11/18 at 23:29; Status DC Calcium Gluconate (Calcium Gluconate) 1,000 mg 1X ONCE IVP Last administered on 09/11/18at 22:43; Start 09/11/18 at 23:00; Stop 09/11/18 at 23:01; Status DC Insulin Human Regular (HumuLIN R VIAL) 10 unit 1X ONCE IV Last administered on 09/11/18 23:51; Start 09/11/18 at 23:00; Stop 09/11/18 at 23:01; Status DC Dextrose (Dextrose 50%-Water Syringe) 25 gm 1X ONCE IV Last administered on 09/11/18at 22:42; Start 09/11/18 at 23:00; Stop 09/11/18 at 23:01; Status DC Sodium Bicarbonate (Sodium Bicarb Adult 8.4% Syr) 50 meq 1X ONCE IV Last administered on 09/11/18 23:49; Start 09/11/18 at 23:00; Stop 09/11/18 at 23:01; Status DC Sodium Chloride 1,000 ml @ 1,000 mls/hr 1X ONCE IV Last administered on 09/11/18at 23:50; Start 09/11/18 at 23:00; Stop 09/11/18 at 23:59; Status DC Albuterol Sulfate (Ventolin Neb Soln) 10 mg 1X ONCE CONT NEB Last administered on 09/12/18 00:30; Start 09/11/18 at 23:00; Stop 09/11/18 at 23:01; Status DC Ceftriaxone Sodium (Rocephin) 1 gm 1X ONCE IVP Last administered on 09/11/18 22:43; Start 09/11/18 at 23:00; Stop 09/11/18 at 23:01; Status DC Sodium Chloride 1,000 ml @ 1,000 mls/hr 1X ONCE IV Last administered on 09/12/18at 01:00; Start 09/12/18 at 01:00; Stop 09/12/18 at 01:59; Status DC Lorazepam (Ativan Inj) 0.5 mg PRN Q6HRS PRN IV ANXIETY / AGITATION Last administered on 09/12/18at 11:00; Start 09/12/18 at 01:15; Stop 09/13/18 at 08:48; Status DC Ondansetron HCl (Zofran) 4 mg PRN Q6HRS PRN IV NAUSEA/VOMITING 1ST CHOICE; Start 09/12/18 at 01:15; Stop 09/12/18 at 01:22; Status DC Sodium Chloride (Normal Saline Flush) 3 ml QSHIFT PRN IV AFTER MEDS AND BLOOD DRAWS; Start 09/12/18 at 01:15 Sodium Chloride 1,000 ml @ 175 mls/hr Q5H43M IV ; Start 09/12/18 at 01:08; Stop 09/12/18 at 01:23; Status DC Ondansetron HCl (Zofran) 4 mg PRN Q8HRS PRN IV NAUSEA/VOMITING 1ST CHOICE; Start 09/12/18 at 01:15; Stop 09/13/18 at 01:14; Status DC Sodium Chloride 1,000 ml @ 150 mls/hr Q6H40M IV ; Start 09/12/18 at 01:30; Stop 09/12/18 at 18:49; Status DC Morphine Sulfate (Morphine Sulfate) 4 mg PRN Q4HRS PRN IV SEVERE PAIN Last administered on 09/14/18at 03:20; Start 09/12/18 at 09:00 Sodium Bicarbonate (Sodium Bicarb Adult 8.4% Syr) 100 meq 1X ONCE IV Last administered on 09/12/18at 10:02; Start 09/12/18 at 10:00; Stop 09/12/18 at 10:01; Status DC Sodium Chloride 1,000 ml @ 1,000 mls/hr 1X ONCE IV Last administered on 09/12/18at 09:56; Start 09/12/18 at 10:00; Stop 09/12/18 at 10:59; Status DC Lidocaine/Sodium Bicarbonate (Buffered Lidocaine 1%) 3 ml STK-MED ONCE .ROUTE ; Start 09/12/18 at 11:07; Stop 09/12/18 at 11:08; Status DC Calcium Gluconate (Calcium Gluconate) 2,000 mg 1X ONCE IVP Last administered on 09/12/18at 13:38; Start 09/12/18 at 12:00; Stop 09/12/18 at 12:01; Status DC Ceftriaxone Sodium (Rocephin) 1 gm Q24H IVP Last administered on 09/12/18at 12:49; Start 09/12/18 at 13:00; Stop 09/13/18 at 07:45; Status DC Silver Sulfadiazine (Silvadene) 1 elinor BID TP Last administered on 09/13/18at 10:06; Start 09/12/18 at 13:00; Stop 09/13/18 at 15:04; Status DC Sodium Chloride 1,000 ml @ 1,000 mls/hr 1X ONCE IV Last administered on 09/12/18at 12:47; Start 09/12/18 at 12:45; Stop 09/12/18 at 13:44; Status DC Pantoprazole Sodium (Protonix) 40 mg DAILYAC PO ; Start 09/12/18 at 13:30; Stop 09/12/18 at 19:22; Status DC Polyethylene Glycol (miraLAX PACKET) 17 gm DAILY PO ; Start 09/12/18 at 13:30 Lidocaine/Sodium Bicarbonate (Buffered Lidocaine 1%) 3 ml STK-MED ONCE .ROUTE ; Start 09/12/18 at 13:48; Stop 09/12/18 at 13:49; Status DC Haloperidol Lactate (Haldol Inj) 1 mg PRN Q8HRS PRN IVP AGITATION Last administered on 09/14/18at 07:56; Start 09/12/18 at 14:00 Lorazepam (Ativan Inj) 2 mg PRN Q2HRS PRN IV ANXIETY. Last administered on 09/14/18at 07:57; Start 09/12/18 at 14:00 Lidocaine/Sodium Bicarbonate (Buffered Lidocaine 1%) 6 ml 1X ONCE INJ ; Start 09/12/18 at 14:15; Stop 09/12/18 at 14:16; Status DC Dexmedetomidine HCl 200 mcg/ Sodium Chloride 50 ml @ 0 mls/hr CONT PRN IV PER PROTOCOL Last administered on 09/14/18at 07:56; Start 09/12/18 at 14:15 Sodium Chloride 500 ml @ 500 mls/hr 1X PRN PRN IV SEE COMMENTS; Start 09/12/18 at 14:15 Atropine Sulfate (ATROPINE 0.5mg SYRINGE) 0.5 mg PRN Q5MIN PRN IV SEE COMMENTS; Start 09/12/18 at 14:15 Sodium Chloride 1,000 ml @ 1,000 mls/hr Q1H PRN IV hypotension; Start 09/12/18 at 15:08; Stop 09/12/18 at 21:07; Status DC Diphenhydramine HCl (Benadryl) 25 mg 1X PRN PRN IV ITCHING; Start 09/12/18 at 15:15; Stop 09/13/18 at 11:19; Status DC Diphenhydramine HCl (Benadryl) 25 mg 1X PRN PRN IV ITCHING; Start 09/12/18 at 15:15; Stop 09/13/18 at 11:19; Status DC Sodium Chloride 1,000 ml @ 400 mls/hr Q2H30M PRN IV PATENCY; Start 09/12/18 at 15:08; Stop 09/13/18 at 03:07; Status DC Info (PHARMACY MONITORING -- do not chart) 1 each PRN DAILY PRN MC SEE COMMENTS; Start 09/12/18 at 15:15; Stop 09/13/18 at 11:18; Status DC Pantoprazole Sodium (PROTONIX VIAL for IV PUSH) 40 mg DAILYAC IVP Last a dministered on 09/14/18at 08:02; Start 09/13/18 at 07:30 Linezolid (Zyvox) 600 mg BID PO Last administered on 09/13/18at 14:14; Start 09/13/18 at 09:00 Ceftriaxone Sodium (Rocephin) 2 gm Q24H IVP Last administered on 09/13/18at 14:39; Start 09/13/18 at 13:00 Calcium Gluconate 2000 mg/Dextrose 120 ml @ 220 mls/hr 1X ONCE IV Last administered on 09/13/18at 10:05; Start 09/13/18 at 10:00; Stop 09/13/18 at 10:32; Status DC Sodium Chloride 1,000 ml @ 1,000 mls/hr Q1H PRN IV hypotension; Start 09/13/18 at 11:06; Stop 09/13/18 at 17:05; Status DC Diphenhydramine HCl (Benadryl) 25 mg 1X PRN PRN IV ITCHING; Start 09/13/18 at 11:15; Stop 09/14/18 at 11:14 Diphenhydramine HCl (Benadryl) 25 mg 1X PRN PRN IV ITCHING; Start 09/13/18 at 11:15; Stop 09/14/18 at 11:14 Sodium Chloride 1,000 ml @ 400 mls/hr Q2H30M PRN IV PATENCY; Start 09/13/18 at 11:06; Stop 09/13/18 at 23:05; Status DC Info (PHARMACY MONITORING -- do not chart) 1 each PRN DAILY PRN MC SEE COMMENTS; Start 09/13/18 at 11:15 Active Scripts Active Reported Protonix (Pantoprazole Sodium) 20 Mg Tablet. 2 Tab PO DAILY Zyprexa (Olanzapine) 20 Mg Tablet 2 Tab PO QHS Buspirone Hcl 30 Mg Tablet 1 Tab PO BID Vitals/I & O Vital Sign - Last 24 Hours 09/13/18 09/13/18 09/13/18 09/13/18 09:00 10:00 11:00 12:00 Pulse 82 81 82 Resp 17 23 14 B/P (MAP) 111/53 (72) 110/50 (70) 100/73 (82) Pulse Ox 93 96 96 O2 Delivery Room Air Room Air Room Air Room Air 09/13/18 09/13/18 09/13/18 09/13/18 12:00 13:00 13:35 14:00 Temp 98.1 98.1 Pulse 82 88 104 Resp 15 14 17 28 B/P (MAP) 134/65 (88) 116/51 (72) 129/68 (88) Pulse Ox 94 95 94 94 O2 Delivery Room Air Room Air Room Air Room Air 09/13/18 09/13/18 09/13/18 09/13/18 14:05 15:00 16:00 16:00 Temp 98.4 98.4 Pulse 112 85 Resp 14 14 B/P (MAP) 135/67 (89) 126/66 (86) Pulse Ox 95 92 93 O2 Delivery Room Air Room Air Room Air 09/13/18 09/13/18 09/13/18 09/13/18 17:00 18:00 19:44 19:50 Pulse 85 85 Resp 15 14 18 B/P (MAP) 135/66 (89) 130/69 (89) Pulse Ox 94 93 O2 Delivery Room Air Room Air Room Air Room Air O2 Flow Rate 98.0 09/13/18 09/13/18 09/13/18 09/13/18 21:10 22:00 23:11 23:46 Pulse 87 87 87 Resp 20 16 16 B/P (MAP) 125/62 (83) 120/60 (80) 119/63 (81) Pulse Ox 94 95 94 O2 Delivery Room Air Room Air Room Air 09/14/18 09/14/18 09/14/18 09/14/18 00:00 00:20 01:06 02:00 Temp 97.9 97.9 Pulse 84 84 80 Resp 16 20 B/P (MAP) 135/76 (95) 132/81 (98) 145/80 (101) Pulse Ox 94 94 93 O2 Delivery Room Air Room Air Room Air Room Air 09/14/18 09/14/18 09/14/18 09/14/18 03:13 03:20 03:50 04:20 Temp 97.8 97.8 Pulse 82 83 Resp 16 16 16 17 B/P (MAP) 149/81 (103) 122/72 (89) Pulse Ox 94 94 O2 Delivery Room Air Room Air Room Air Room Air 09/14/18 09/14/18 09/14/18 04:20 05:17 06:00 Pulse 81 80 Resp 16 18 B/P (MAP) 123/69 (87) 139/79 (99) Pulse Ox 94 95 O2 Delivery Room Air Room Air Room Air Intake and Output 09/13/18 09/13/18 09/14/18 14:59 22:59 06:59 Intake Total 600 ml 830 ml 150 ml Output Total 10 ml 0 ml 10 ml Balance 590 ml 830 ml 140 ml CASPER MONTGOMERY MD Sep 14, 2018 08:49
[2018-09-14] MEDS: POLYETHYLENE GLYCOL 3350 17 GM PACKET. PO SCH (09:00)
--- NOTE | 2018-09-14 09:48 | PDOC ---
PROGRESS NOTES History of Present Illness History of Present Illness VTE Prophylaxis Ordered VTE Prophylaxis Devices: No VTE Pharmacological Prophylaxi: Contraindicated Assessment/Plan ARF from the rhabdomyolysis. GB sludge of questionable signifi cance. TRANSAMINITIS Elevated troponin SUSPECT Stress induced Urinary tract infection Methamphetamine abuse, SEVERE Hyperkalemia Hyponatremia hypocalcemia Urinary retention Rhabdomyolysis Hypocalcemia- severe 2/2 Rhabdo paresthesia evidence of degenerative changes the spine with disc protrusions and annular tears at L4-5 and L5-S1 as well as osteophyte formation at vertebral body endplates and facet hypertrophy. This contributes to central canal and neural foraminal stenosis Epidural lipomatosis is identified most severe in the lower lumbar spine extending into the sacrum with resultant small size of the thecal sac. High T2 signal is identified within the right greater than left paraspinal musculature and psoas which can be seen with edema to these regions. Can be seen with causes such as myositis, muscle strain or neurological in nature from causes such as denervation associated edema. Gallbladder was distended. Gallstones were not identified. There was mild sludge in the gallbladder. Gallbladder wall was upper normal in thickness. 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 WOUND// DEBRIDEMENT? POOR PROGNOSIS due to severe drug abuse per my chart review 32 MIN CC TIME Vitals Vitals Vital Signs Date Time Temp Pulse Resp B/P (MAP) Pulse Ox O2 Delivery O2 Flow Rate FiO2 09/14/18 06:00 80 18 139/79 (99) 95 Room Air 09/14/18 04:20 97.8 97.8 09/13/18 19:50 98.0 Physical Exam Physical Exam GENERAL: Lethargic male in chair, more alert than yesterday in no acute distress.comfortable in mitts, HEENT: Normocephalic, atraumatic. Anicteric. Oral mucosa moist. No thrush. No oropharyngeal exudate. NECK: Supple. LUNGS: Clear bilaterally. No wheezing. HEART: S1, S2, regular rate. ABDOMEN: Soft, nontender. EXTREMITIES: Edema present, burn with ulceration over the thumb and the finger in the right hand, superficial. No sinus tract noted. Mild swelling present over the dorsum of the hand. No wrist swelling. Multiple tubbs over both upper and lower extremity. Edema over both lower extremities. CENTRAL NERVOUS SYSTEM: Moves all 4 extremities. PSYCHIATRY: Calm, cooperative. General: Cooperative, mild distress Heart: Regular rate, Normal S1, No murmurs Lungs: Clear Abdomen: Normal bowel sounds, Soft, No hepatosplenomegaly, Other (obese, no fluid wave) Extremities: No cyanosis, No edema, Other (burn to right index finger APPEARS OLD associated cellulitis) Labs LABS NO PCP EMERY CHANEY MD ORDERED: ANAER/AEROB/GS Procedure Result ANAEROBIC-AEROBIC CULTURE PENDING ANAEROBIC RES 1 PENDING AEROBIC CULT PENDING AEROBIC RES 1 PENDING GRAM STAIN Final Final report GRAM STAIN RES 1 Final Comment No white blood cells seen. GRAM STAIN RES 2 Final No organisms seen Performed at: DA - [facility] [place] [address], [place], [place] [id number] Client Services Analyst: RADHA Cunningham MD, Phone: [phone] Laboratory Tests Test 09/14/18 06:30 White Blood Count 6.5 x10^3/uL (4.0-11.0) Red Blood Count 3.91 x10^6/uL (4.30-5.70) Hemoglobin 11.4 g/dL (13.0-17.5) Hematocrit 32.6 % (39.0-53.0) Mean Corpuscular Volume 83 fL (79-100) Mean Corpuscular Hemoglobin 29 pg (25-35) Mean Corpuscular Hemoglobin Concent 35 g/dL (31-37) Red Cell Distribution Width 12.9 % (11.5-14.5) Platelet Count 166 x10^3/uL (140-400) Neutrophils (%) (Auto) 76 % (31-73) Lymphocytes (%) (Auto) 15 % (24-48) Monocytes (%) (Auto) 5 % (0-9) Eosinophils (%) (Auto) 3 % (0-3) Basophils (%) (Auto) 1 % (0-3) Neutrophils # (Auto) 4.9 x10^3/uL (1.8-7.7) Lymphocytes # (Auto) 1.0 x10^3/uL (1.0-4.8) Monocytes # (Auto) 0.3 x10^3/uL (0.0-1.1) Eosinophils # (Auto) 0.2 x10^3/uL (0.0-0.7) Basophils # (Auto) 0.0 x10^3/uL (0.0-0.2) Sodium Level 129 mmol/L (136-145) Potassium Level 3.5 mmol/L (3.5-5.1) Chloride Level 91 mmol/L (98-107) Carbon Dioxide Level 27 mmol/L (21-32) Anion Gap 11 (6-14) Blood Urea Nitrogen 57 mg/dL (8-26) Creatinine 8.4 mg/dL (0.7-1.3) Estimated GFR (Cockcroft-Gault) 7.5 BUN/Creatinine Ratio 7 (6-20) Glucose Level 80 mg/dL (70-99) Calcium Level 6.7 mg/dL (8.5-10.1) Total Bilirubin 0.5 mg/dL (0.2-1.0) Aspartate Amino Transf (AST/SGOT) 653 U/L (15-37) Alanine Aminotransferase (ALT/SGPT) 307 U/L (16-63) Alkaline Phosphatase 57 U/L (46-116) Creatine Kinase 43174 U/L (39-308) Total Protein 5.0 g/dL (6.4-8.2) Albumin 1.8 g/dL (3.4-5.0) Albumin/Globulin Ratio 0.6 (1.0-1.7) Assessment and Plan Assessmemt and Plan Problems Medical Problems: (1) Elevated troponin Status: Acute (2) Hepatorenal syndrome Status: Acute (3) Hyperkalemia Status: Acute (4) Hyponatremia Status: Acute (5) Methamphetamine abuse Status: Acute (6) Neurological complaint Status: Acute (7) Rhabdomyolysis Status: Acute (8) Urinary retention Status: Acute (9) Urinary tract infection Status: Acute Comment Review of Relevant I have reviewed the following items ashlie (where applicable) has been applied. Labs Laboratory Tests Test 09/12/18 11:19 09/12/18 15:15 09/12/18 18:00 09/12/18 21:20 CSF Tube Number 4 CSF Volume 3.0 CSF Color Colorless CSF Clarity Clear CSF WBC 3 /cmm (Not Established) CSF RBC 2 /cmm (Not Established) CSF Glucose 52 mg/dL (37-70) CSF Total Protein 53.2 mg/dL (15.0-45.0) Hepatitis A IgM Antibody Nonreactive (Nonreactive) Hepatitis B Surface Antigen Nonreactive (Nonreactive) Hepatitis B Surface Antibody, Quant <3.1 mIU/mL (Immunity>9.9) Hepatitis B Core Total Antibody Nonreactive (Nonreactive) Hepatitis B Core IgM Antibody Nonreactive (Nonreactive) Hepatitis C IgG Antibody Equivocal (Nonreactive) Sodium Level 127 mmol/L (136-145) Potassium Level 3.5 mmol/L (3.5-5.1) Chloride Level 88 mmol/L (98-107) Carbon Dioxide Level 21 mmol/L (21-32) Anion Gap 18 (6-14) Blood Urea Nitrogen 69 mg/dL (8-26) Creatinine 8.6 mg/dL (0.7-1.3) Estimated GFR (Cockcroft-Gault) 7.3 Glucose Level 70 mg/dL (70-99) Calcium Level 5.6 mg/dL (8.5-10.1) Ionized Calcium 0.70 mmol/L (1.13-1.32) Test 09/13/18 06:15 09/14/18 06:30 White Blood Count 7.6 x10^3/uL (4.0-11.0) 6.5 x10^3/uL (4.0-11.0) Red Blood Count 3.69 x10^6/uL (4.30-5.70) 3.91 x10^6/uL (4.30-5.70) Hemoglobin 10.9 g/dL (13.0-17.5) 11.4 g/dL (13.0-17.5) Hematocrit 30.6 % (39.0-53.0) 32.6 % (39.0-53.0) Mean Corpuscular Volume 83 fL (79-100) 83 fL (79-100) Mean Corpuscular Hemoglobin 30 pg (25-35) 29 pg (25-35) Mean Corpuscular Hemoglobin Concent 36 g/dL (31-37) 35 g/dL (31-37) Red Cell Distribution Width 13.1 % (11.5-14.5) 12.9 % (11.5-14.5) Platelet Count 148 x10^3/uL (140-400) 166 x10^3/uL (140-400) Neutrophils (%) (Auto) 82 % (31-73) 76 % (31-73) Lymphocytes (%) (Auto) 11 % (24-48) 15 % (24-48) Monocytes (%) (Auto) 6 % (0-9) 5 % (0-9) Eosinophils (%) (Auto) 1 % (0-3) 3 % (0-3) Basophils (%) (Auto) 0 % (0-3) 1 % (0-3) Neutrophils # (Auto) 6.2 x10^3/uL (1.8-7.7) 4.9 x10^3/uL (1.8-7.7) Lymphocytes # (Auto) 0.8 x10^3/uL (1.0-4.8) 1.0 x10^3/uL (1.0-4.8) Monocytes # (Auto) 0.4 x10^3/uL (0.0-1.1) 0.3 x10^3/uL (0.0-1.1) Eosinophils # (Auto) 0.1 x10^3/uL (0.0-0.7) 0.2 x10^3/uL (0.0-0.7) Basophils # (Auto) 0.0 x10^3/uL (0.0-0.2) 0.0 x10^3/uL (0.0-0.2) Sodium Level 124 mmol/L (136-145) 129 mmol/L (136-145) Potassium Level 4.3 mmol/L (3.5-5.1) 3.5 mmol/L (3.5-5.1) Chloride Level 87 mmol/L (98-107) 91 mmol/L (98-107) Carbon Dioxide Level 20 mmol/L (21-32) 27 mmol/L (21-32) Anion Gap 17 (6-14) 11 (6-14) Blood Urea Nitrogen 84 mg/dL (8-26) 57 mg/dL (8-26) Creatinine 10.4 mg/dL (0.7-1.3) 8.4 mg/dL (0.7-1.3) Estimated GFR (Cockcroft-Gault) 5.9 7.5 BUN/Creatinine Ratio 8 (6-20) 7 (6-20) Glucose Level 91 mg/dL (70-99) 80 mg/dL (70-99) Calcium Level 5.5 mg/dL (8.5-10.1) 6.7 mg/dL (8.5-10.1) Magnesium Level 2.1 mg/dL (1.8-2.4) Total Bilirubin 0.5 mg/dL (0.2-1.0) 0.5 mg/dL (0.2-1.0) Aspartate Amino Transf (AST/SGOT) 1017 U/L (15-37) 653 U/L (15-37) Alanine Aminotransferase (ALT/SGPT) 412 U/L (16-63) 307 U/L (16-63) Alkaline Phosphatase 65 U/L (46-116) 57 U/L (46-116) Creatine Kinase > 462990 U/L (39-308) 89397 U/L (39-308) Total Protein 5.2 g/dL (6.4-8.2) 5.0 g/dL (6.4-8.2) Albumin 2.0 g/dL (3.4-5.0) 1.8 g/dL (3.4-5.0) Albumin/Globulin Ratio 0.6 (1.0-1.7) 0.6 (1.0-1.7) Laboratory Tests Test 09/14/18 06:30 White Blood Count 6.5 x10^3/uL (4.0-11.0) Red Blood Count 3.91 x10^6/uL (4.30-5.70) Hemoglobin 11.4 g/dL (13.0-17.5) Hematocrit 32.6 % (39.0-53.0) Mean Corpuscular Volume 83 fL (79-100) Mean Corpuscular Hemoglobin 29 pg (25-35) Mean Corpuscular Hemoglobin Concent 35 g/dL (31-37) Red Cell Distribution Width 12.9 % (11.5-14.5) Platelet Count 166 x10^3/uL (140-400) Neutrophils (%) (Auto) 76 % (31-73) Lymphocytes (%) (Auto) 15 % (24-48) Monocytes (%) (Auto) 5 % (0-9) Eosinophils (%) (Auto) 3 % (0-3) Basophils (%) (Auto) 1 % (0-3) Neutrophils # (Auto) 4.9 x10^3/uL (1.8-7.7) Lymphocytes # (Auto) 1.0 x10^3/uL (1.0-4.8) Monocytes # (Auto) 0.3 x10^3/uL (0.0-1.1) Eosinophils # (Auto) 0.2 x10^3/uL (0.0-0.7) Basophils # (Auto) 0.0 x10^3/uL (0.0-0.2) Sodium Level 129 mmol/L (136-145) Potassium Level 3.5 mmol/L (3.5-5.1) Chloride Level 91 mmol/L (98-107) Carbon Dioxide Level 27 mmol/L (21-32) Anion Gap 11 (6-14) Blood Urea Nitrogen 57 mg/dL (8-26) Creatinine 8.4 mg/dL (0.7-1.3) Estimated GFR (Cockcroft-Gault) 7.5 BUN/Creatinine Ratio 7 (6-20) Glucose Level 80 mg/dL (70-99) Calcium Level 6.7 mg/dL (8.5-10.1) Total Bilirubin 0.5 mg/dL (0.2-1.0) Aspartate Amino Transf (AST/SGOT) 653 U/L (15-37) Alanine Aminotransferase (ALT/SGPT) 307 U/L (16-63) Alkaline Phosphatase 57 U/L (46-116) Creatine Kinase 58970 U/L (39-308) Total Protein 5.0 g/dL (6.4-8.2) Albumin 1.8 g/dL (3.4-5.0) Albumin/Globulin Ratio 0.6 (1.0-1.7) Microbiology 09/12/18 Blood Culture - Preliminary, Resulted NO GROWTH AFTER 2 DAYS 09/12/18 CSF Gram Stain - Final, Complete 09/11/18 Urine Culture - Final, Complete 09/11/18 Urine Culture Result 1 ([place]) - Final, Complete Medications Current Medications Morphine Sulfate (Morphine Sulfate) 4 mg 1X ONCE IV Last administered on 09/11/18at 21:20; Start 09/11/18 at 21:30; Stop 09/11/18 at 21:31; Status DC Sodium Chloride 1,000 ml @ 1,000 mls/hr 1X ONCE IV Last administered on 09/11/18at 22:30; Start 09/11/18 at 22:30; Stop 09/11/18 at 23:29; Status DC Calcium Gluconate (Calcium Gluconate) 1,000 mg 1X ONCE IVP Last administered on 09/11/18at 22:43; Start 09/11/18 at 23:00; Stop 09/11/18 at 23:01; Status DC Insulin Human Regular (HumuLIN R VIAL) 10 unit 1X ONCE IV Last administered on 09/11/18at 23:51; Start 09/11/18 at 23:00; Stop 09/11/18 at 23:01; Status DC Dextrose (Dextrose 50%-Water Syringe) 25 gm 1X ONCE IV Last administered on 09/11/18at 22:42; Start 09/11/18 at 23:00; Stop 09/11/18 at 23:01; Status DC Sodium Bicarbonate (Sodium Bicarb Adult 8.4% Syr) 50 meq 1X ONCE IV Last administered on 09/11/18at 23:49; Start 09/11/18 at 23:00; Stop 09/11/18 at 23:01; Status DC Sodium Chloride 1,000 ml @ 1,000 mls/hr 1X ONCE IV Last administered on 09/11/18at 23:50; Start 09/11/18 at 23:00; Stop 09/11/18 at 23:59; Status DC Albuterol Sulfate (Ventolin Neb Soln) 10 mg 1X ONCE CONT NEB Last administered on 09/12/18at 00:30; Start 09/11/18 at 23:00; Stop 09/11/18 at 23:01; Status DC Ceftriaxone Sodium (Rocephin) 1 gm 1X ONCE IVP Last administered on 09/11/18at 22:43; Start 09/11/18 at 23:00; Stop 09/11/18 at 23:01; Status DC Sodium Chloride 1,000 ml @ 1,000 mls/hr 1X ONCE IV Last administered on 09/12/18at 01:00; Start 09/12/18 at 01:00; Stop 09/12/18 at 01:59; Status DC Lorazepam (Ativan Inj) 0.5 mg PRN Q6HRS PRN IV ANXIETY / AGITATION Last administered on 09/12/18at 11:00; Start 09/12/18 at 01:15; Stop 09/13/18 at 08:48; Status DC Ondansetron HCl (Zofran) 4 mg PRN Q6HRS PRN IV NAUSEA/VOMITING 1ST CHOICE; Start 09/12/18 at 01:15; Stop 09/12/18 at 01:22; Status DC Sodium Chloride (Normal Saline Flush) 3 ml QSHIFT PRN IV AFTER MEDS AND BLOOD DRAWS; Start 09/12/18 at 01:15 Sodium Chloride 1,000 ml @ 175 mls/hr Q5H43M IV ; Start 09/12/18 at 01:08; Stop 09/12/18 at 01:23; Status DC Ondansetron HCl (Zofran) 4 mg PRN Q8HRS PRN IV NAUSEA/VOMITING 1ST CHOICE; Start 09/12/18 at 01:15; Stop 09/13/18 at 01:14; Status DC Sodium Chloride 1,000 ml @ 150 mls/hr Q6H40M IV ; Start 09/12/18 at 01:30; Stop 09/12/18 at 18:49; Status DC Morphine Sulfate (Morphine Sulfate) 4 mg PRN Q4HRS PRN IV SEVERE PAIN Last administered on 09/14/18at 03:20; Start 09/12/18 at 09:00 Sodium Bicarbonate (Sodium Bicarb Adult 8.4% Syr) 100 meq 1X ONCE IV Last administered on 09/12/18at 10:02; Start 09/12/18 at 10:00; Stop 09/12/18 at 10:01; Status DC Sodium Chloride 1,000 ml @ 1,000 mls/hr 1X ONCE IV Last administered on 09/12/18at 09:56; Start 09/12/18 at 10:00; Stop 09/12/18 at 10:59; Status DC Lidocaine/Sodium Bicarbonate (Buffered Lidocaine 1%) 3 ml STK-MED ONCE .ROUTE ; Start 09/12/18 at 11:07; Stop 09/12/18 at 11:08; Status DC Calcium Gluconate (Calcium Gluconate) 2,000 mg 1X ONCE IVP Last administered on 09/12/18at 13:38; Start 09/12/18 at 12:00; Stop 09/12/18 at 12:01; Status DC Ceftriaxone Sodium (Rocephin) 1 gm Q24H IVP Last administered on 09/12/18at 12:49; Start 09/12/18 at 13:00; Stop 09/13/18 at 07:45; Status DC Silver Sulfadiazine (Silvadene) 1 elinor BID TP Last administered on 09/13/18at 10:06; Start 09/12/18 at 13:00; Stop 09/13/18 at 15:04; Status DC Sodium Chloride 1,000 ml @ 1,000 mls/hr 1X ONCE IV Last administered on 09/12/18at 12:47; Start 09/12/18 at 12:45; Stop 09/12/18 at 13:44; Status DC Pantoprazole Sodium (Protonix) 40 mg DAILYAC PO ; Start 09/12/18 at 13:30; Stop 09/12/18 at 19:22; Status DC Polyethylene Glycol (miraLAX PACKET) 17 gm DAILY PO ; Start 09/12/18 at 13:30 Lidocaine/Sodium Bicarbonate (Buffered Lidocaine 1%) 3 ml STK-MED ONCE .ROUTE ; Start 09/12/18 at 13:48; Stop 09/12/18 at 13:49; Status DC Haloperidol Lactate (Haldol Inj) 1 mg PRN Q8HRS PRN IVP AGITATION Last administered on 09/14/18at 07:56; Start 09/12/18 at 14:00 Lorazepam (Ativan Inj) 2 mg PRN Q2HRS PRN IV ANXIETY. Last administered on 09/14/18at 07:57; Start 09/12/18 at 14:00 Lidocaine/Sodium Bicarbonate (Buffered Lidocaine 1%) 6 ml 1X ONCE INJ ; Start 09/12/18 at 14:15; Stop 09/12/18 at 14:16; Status DC Dexmedetomidine HCl 200 mcg/ Sodium Chloride 50 ml @ 0 mls/hr CONT PRN IV PER PROTOCOL Last administered on 09/14/18at 07:56; Start 09/12/18 at 14:15 Sodium Chloride 500 ml @ 500 mls/hr 1X PRN PRN IV SEE COMMENTS; Start 09/12/18 at 14:15 Atropine Sulfate (ATROPINE 0.5mg SYRINGE) 0.5 mg PRN Q5MIN PRN IV SEE COMMENTS; Start 09/12/18 at 14:15 Sodium Chloride 1,000 ml @ 1,000 mls/hr Q1H PRN IV hypotension; Start 09/12/18 at 15:08; Stop 09/12/18 at 21:07; Status DC Diphenhydramine HCl (Benadryl) 25 mg 1X PRN PRN IV ITCHING; Start 09/12/18 at 15:15; Stop 09/13/18 at 11:19; Status DC Diphenhydramine HCl (Benadryl) 25 mg 1X PRN PRN IV ITCHING; Start 09/12/18 at 15:15; Stop 09/13/18 at 11:19; Status DC Sodium Chloride 1,000 ml @ 400 mls/hr Q2H30M PRN IV PATENCY; Start 09/12/18 at 15:08; Stop 09/13/18 at 03:07; Status DC Info (PHARMACY MONITORING -- do not chart) 1 each PRN DAILY PRN MC SEE COMMENTS; Start 09/12/18 at 15:15; Stop 09/13/18 at 11:18; Status DC Pantoprazole Sodium (PROTONIX VIAL for IV PUSH) 40 mg DAILYAC IVP Last administered on 09/14/18at 08:02; Start 09/13/18 at 07:30 Linezolid (Zyvox) 600 mg BID PO Last administered on 09/13/18at 14:14; Start 09/13/18 at 09:00 Ceftriaxone Sodium (Rocephin) 2 gm Q24H IVP Last administered on 09/13/18at 14:39; Start 09/13/18 at 13:00 Calcium Gluconate 2000 mg/Dextrose 120 ml @ 220 mls/hr 1X ONCE IV Last administered on 09/13/18at 10:05; Start 09/13/18 at 10:00; Stop 09/13/18 at 10:32; Status DC Sodium Chloride 1,000 ml @ 1,000 mls/hr Q1H PRN IV hypotension; Start 09/13/18 at 11:06; Stop 09/13/18 at 17:05; Status DC Diphenhydramine HCl (Benadryl) 25 mg 1X PRN PRN IV ITCHING; Start 09/13/18 at 11:15; Stop 09/14/18 at 11:14 Diphenhydramine HCl (Benadryl) 25 mg 1X PRN PRN IV ITCHING; Start 09/13/18 at 11:15; Stop 09/14/18 at 11:14 Sodium Chloride 1,000 ml @ 400 mls/hr Q2H30M PRN IV PATENCY; Start 09/13/18 at 11:06; Stop 09/13/18 at 23:05; Status DC Info (PHARMACY MONITORING -- do not chart) 1 each PRN DAILY PRN MC SEE COMMENTS; Start 09/13/18 at 11:15 Active Scripts Active Reported Protonix (Pantoprazole Sodium) 20 Mg Tablet.dr 2 Tab PO DAILY Zyprexa (Olanzapine) 20 Mg Tablet 2 Tab PO QHS Buspirone Hcl 30 Mg Tablet 1 Tab PO BID Vitals/I & O Vital Sign - Last 24 Hours 09/13/18 09/13/18 09/13/18 09/13/18 10:00 11:00 12:00 12:00 Temp 98.1 98.1 Pulse 81 82 82 Resp 23 14 15 B/P (MAP) 110/50 (70) 100/73 (82) 134/65 (88) Pulse Ox 96 96 94 O2 Delivery Room Air Room Air Room Air Room Air 09/13/18 09/13/18 09/13/18 7/11/19 13:00 13:35 14:00 14:05 Pulse 88 104 Resp 14 17 28 B/P (MAP) 116/51 (72) 129/68 (88) Pulse Ox 95 94 94 95 O2 Delivery Room Air Room Air Room Air 09/13/18 09/13/18 09/13/18 09/13/18 15:00 16:00 16:00 17:00 Temp 98.4 98.4 Pulse 112 85 85 Resp 14 14 15 B/P (MAP) 135/67 (89) 126/66 (86) 135/66 (89) Pulse Ox 92 93 94 O2 Delivery Room Air Room Air Room Air Room Air 09/13/18 09/13/18 09/13/18 09/13/18 18:00 19:44 19:50 21:10 Pulse 85 87 Resp 14 18 20 B/P (MAP) 130/69 (89) 125/62 (83) Pulse Ox 93 94 O2 Delivery Room Air Room Air Room Air Room Air O2 Flow Rate 98.0 09/13/18 09/13/18 09/13/18 09/14/18 22:00 23:11 23:46 00:00 Pulse 87 87 Resp 16 16 B/P (MAP) 120/60 (80) 119/63 (81) Pulse Ox 95 94 O2 Delivery Room Air Room Air Room Air 09/14/18 09/14/18 09/14/18 09/14/18 00:20 01:06 02:00 03:13 Temp 97.9 97.9 Pulse 84 84 80 82 Resp 16 20 16 B/P (MAP) 135/76 (95) 132/81 (98) 145/80 (101) 149/81 (103) Pulse Ox 94 94 93 94 O2 Delivery Room Air Room Air Room Air Room Air 09/14/18 09/14/18 09/14/18 09/14/18 03:20 03:50 04:20 04:20 Temp 97.8 97.8 Pulse 83 Resp 16 16 17 B/P (MAP) 122/72 (89) Pulse Ox 94 O2 Delivery Room Air Room Air Room Air Room Air 09/14/18 09/14/18 05:17 06:00 Pulse 81 80 Resp 16 18 B/P (MAP) 123/69 (87) 139/79 (99) Pulse Ox 94 95 O2 Delivery Room Air Room Air Intake and Output 09/13/18 09/13/18 09/14/18 15:00 23:00 07:00 Intake Total 600 ml 830 ml 150 ml Output Total 10 ml 0 ml 10 ml Balance 590 ml 830 ml 140 ml MARIAM SINGH MD Sep 14, 2018 09:48
--- NOTE | 2018-09-14 10:15 | PDOC ---
PULMONARY PROGRESS NOTES Subjective no soa, on precedex drip Vitals Vital Signs Date Time Temp Pulse Resp B/P (MAP) Pulse Ox O2 Delivery O2 Flow Rate FiO2 09/14/18 10:00 90 13 119/65 (83) 96 Room Air 09/14/18 08:00 97.5 97.5 09/13/18 19:50 98.0 General: No acute distress Lungs: Clear Cardiovascular: S1 Abdomen: Soft Extremities: Other (1+edema,) Labs Laboratory Tests Test 09/12/18 11:19 09/12/18 15:15 09/12/18 18:00 09/12/18 21:20 CSF Tube Number 4 CSF Volume 3.0 CSF Color Colorless CSF Clarity Clear CSF WBC 3 /cmm (Not Established) CSF RBC 2 /cmm (Not Established) CSF Glucose 52 mg/dL (37-70) CSF Total Protein 53.2 mg/dL (15.0-45.0) Hepatitis A IgM Antibody Nonreactive (Nonreactive) Hepatitis B Surface Antigen Nonreactive (Nonreactive) Hepatitis B Surface Antibody, Quant <3.1 mIU/mL (Immunity>9.9) Hepatitis B Core Total Antibody Nonreactive (Nonreactive) Hepatitis B Core IgM Antibody Nonreactive (Nonreactive) Hepatitis C IgG Antibody Equivocal (Nonreactive) Sodium Level 127 mmol/L (136-145) Potassium Level 3.5 mmol/L (3.5-5.1) Chloride Level 88 mmol/L (98-107) Carbon Dioxide Level 21 mmol/L (21-32) Anion Gap 18 (6-14) Blood Urea Nitrogen 69 mg/dL (8-26) Creatinine 8.6 mg/dL (0.7-1.3) Estimated GFR (Cockcroft-Gault) 7.3 Glucose Level 70 mg/dL (70-99) Calcium Level 5.6 mg/dL (8.5-10.1) Ionized Calcium 0.70 mmol/L (1.13-1.32) Test 09/13/18 06:15 09/14/18 06:30 White Blood Count 7.6 x10^3/uL (4.0-11.0) 6.5 x10^3/uL (4.0-11.0) Red Blood Count 3.69 x10^6/uL (4.30-5.70) 3.91 x10^6/uL (4.30-5.70) Hemoglobin 10.9 g/dL (13.0-17.5) 11.4 g/dL (13.0-17.5) Hematocrit 30.6 % (39.0-53.0) 32.6 % (39.0-53.0) Mean Corpuscular Volume 83 fL (79-100) 83 fL (79-100) Mean Corpuscular Hemoglobin 30 pg (25-35) 29 pg (25-35) Mean Corpuscular Hemoglobin Concent 36 g/dL (31-37) 35 g/dL (31-37) Red Cell Distribution Width 13.1 % (11.5-14.5) 12.9 % (11.5-14.5) Platelet Count 148 x10^3/uL (140-400) 166 x10^3/uL (140-400) Neutrophils (%) (Auto) 82 % (31-73) 76 % (31-73) Lymphocytes (%) (Auto) 11 % (24-48) 15 % (24-48) Monocytes (%) (Auto) 6 % (0-9) 5 % (0-9) Eosinophils (%) (Auto) 1 % (0-3) 3 % (0-3) Basophils (%) (Auto) 0 % (0-3) 1 % (0-3) Neutrophils # (Auto) 6.2 x10^3/uL (1.8-7.7) 4.9 x10^3/uL (1.8-7.7) Lymphocytes # (Auto) 0.8 x10^3/uL (1.0-4.8) 1.0 x10^3/uL (1.0-4.8) Monocytes # (Auto) 0.4 x10^3/uL (0.0-1.1) 0.3 x10^3/uL (0.0-1.1) Eosinophils # (Auto) 0.1 x10^3/uL (0.0-0.7) 0.2 x10^3/uL (0.0-0.7) Basophils # (Auto) 0.0 x10^3/uL (0.0-0.2) 0.0 x10^3/uL (0.0-0.2) Sodium Level 124 mmol/L (136-145) 129 mmol/L (136-145) Potassium Level 4.3 mmol/L (3.5-5.1) 3.5 mmol/L (3.5-5.1) Chloride Level 87 mmol/L (98-107) 91 mmol/L (98-107) Carbon Dioxide Level 20 mmol/L (21-32) 27 mmol/L (21-32) Anion Gap 17 (6-14) 11 (6-14) Blood Urea Nitrogen 84 mg/dL (8-26) 57 mg/dL (8-26) Creatinine 10.4 mg/dL (0.7-1.3) 8.4 mg/dL (0.7-1.3) Estimated GFR (Cockcroft-Gault) 5.9 7.5 BUN/Creatinine Ratio 8 (6-20) 7 (6-20) Glucose Level 91 mg/dL (70-99) 80 mg/dL (70-99) Calcium Level 5.5 mg/dL (8.5-10.1) 6.7 mg/dL (8.5-10.1) Magnesium Level 2.1 mg/dL (1.8-2.4) Total Bilirubin 0.5 mg/dL (0.2-1.0) 0.5 mg/dL (0.2-1.0) Aspartate Amino Transf (AST/SGOT) 1017 U/L (15-37) 653 U/L (15-37) Alanine Aminotransferase (ALT/SGPT) 412 U/L (16-63) 307 U/L (16-63) Alkaline Phosphatase 65 U/L (46-116) 57 U/L (46-116) Creatine Kinase > 416828 U/L (39-308) 71453 U/L (39-308) Total Protein 5.2 g/dL (6.4-8.2) 5.0 g/dL (6.4-8.2) Albumin 2.0 g/dL (3.4-5.0) 1.8 g/dL (3.4-5.0) Albumin/Globulin Ratio 0.6 (1.0-1.7) 0.6 (1.0-1.7) Laboratory Tests Test 09/14/18 06:30 White Blood Count 6.5 x10^3/uL (4.0-11.0) Red Blood Count 3.91 x10^6/uL (4.30-5.70) Hemoglobin 11.4 g/dL (13.0-17.5) Hematocrit 32.6 % (39.0-53.0) Mean Corpuscular Volume 83 fL (79-100) Mean Corpuscular Hemoglobin 29 pg (25-35) Mean Corpuscular Hemoglobin Concent 35 g/dL (31-37) Red Cell Distribution Width 12.9 % (11.5-14.5) Platelet Count 166 x10^3/uL (140-400) Neutrophils (%) (Auto) 76 % (31-73) Lymphocytes (%) (Auto) 15 % (24-48) Monocytes (%) (Auto) 5 % (0-9) Eosinophils (%) (Auto) 3 % (0-3) Basophils (%) (Auto) 1 % (0-3) Neutrophils # (Auto) 4.9 x10^3/uL (1.8-7.7) Lymphocytes # (Auto) 1.0 x10^3/uL (1.0-4.8) Monocytes # (Auto) 0.3 x10^3/uL (0.0-1.1) Eosinophils # (Auto) 0.2 x10^3/uL (0.0-0.7) Basophils # (Auto) 0.0 x10^3/uL (0.0-0.2) Sodium Level 129 mmol/L (136-145) Potassium Level 3.5 mmol/L (3.5-5.1) Chloride Level 91 mmol/L (98-107) Carbon Dioxide Level 27 mmol/L (21-32) Anion Gap 11 (6-14) Blood Urea Nitrogen 57 mg/dL (8-26) Creatinine 8.4 mg/dL (0.7-1.3) Estimated GFR (Cockcroft-Gault) 7.5 BUN/Creatinine Ratio 7 (6-20) Glucose Level 80 mg/dL (70-99) Calcium Level 6.7 mg/dL (8.5-10.1) Total Bilirubin 0.5 mg/dL (0.2-1.0) Aspartate Amino Transf (AST/SGOT) 653 U/L (15-37) Alanine Aminotransferase (ALT/SGPT) 307 U/L (16-63) Alkaline Phosphatase 57 U/L (46-116) Creatine Kinase 80756 U/L (39-308) Total Protein 5.0 g/dL (6.4-8.2) Albumin 1.8 g/dL (3.4-5.0) Albumin/Globulin Ratio 0.6 (1.0-1.7) Medications Active Scripts Medications Dose Route/Sig Max Daily Dose Days Date Category Protonix (Pantoprazole Sodium) 20 Mg Tablet.dr 2 Tab PO DAILY 09/12/18 Reported Zyprexa (Olanzapine) 20 Mg Tablet 2 Tab PO QHS 09/12/18 Reported Buspirone Hcl 30 Mg Tablet 1 Tab PO BID 09/12/18 Reported Impression . 1. Status post fall with acute rhabdomyolysis with markedly high CPKs and acute renal failure. 2. Acute kidney injury secondary to rhabdomyolysis. 3. Severe metabolic acidosis secondary to acute kidney injury. Clinically, less likely sepsis. Lactic acid is 1.1 4. Hyponatremia.improving 5. Moderate protein-calorie malnutrition. 6. Leukocytosis, likely reactive. 7. Status post fall with abnormal thoracic MRI. Neurosurgery following. 8. Abnormal liver function test secondary to hypoperfusion and rhabdomyolysis. 9. Hypocalcemia.improving Plan . 1. s/p fluid resuscitation , started on HD, now on CRRT 2. Follow Renal's recommendation. 3. prn bicarbonate. 4. Monitor sodium level. improving 5. Follow Neurology and Neurosurgery's recommendation. 6. Continue empiric antibiotic, although clinical suspicion for infection is low. 7. Follow CPKs., trending down 8. Correct calcium and follow the levels.improving 9. clear chest x-ray. 10. Discussed with RN and will follow along with you. EITAN HAGAN MD Sep 14, 2018 10:15
--- NOTE | 2018-09-14 11:03 | PDOC ---
Objective: Objective: Reviewed w/ nurse - plans for CRRT. Drank some water and ate ice chips, still pretty drowsy/in and out. Vital Signs: Vital Signs Date Time Temp Pulse Resp B/P (MAP) Pulse Ox O2 Delivery O2 Flow Rate FiO2 09/14/18 10:00 90 13 119/65 (83) 96 Room Air 09/14/18 08:00 97.5 97.5 09/13/18 19:50 98.0 Labs: Laboratory Tests Test 09/14/18 06:30 White Blood Count 6.5 x10^3/uL Red Blood Count 3.91 x10^6/uL Hemoglobin 11.4 g/dL Hematocrit 32.6 % Mean Corpuscular Volume 83 fL Mean Corpuscular Hemoglobin 29 pg Mean Corpuscular Hemoglobin Concent 35 g/dL Red Cell Distribution Width 12.9 % Platelet Count 166 x10^3/uL Neutrophils (%) (Auto) 76 % Lymphocytes (%) (Auto) 15 % Monocytes (%) (Auto) 5 % Eosinophils (%) (Auto) 3 % Basophils (%) (Auto) 1 % Neutrophils # (Auto) 4.9 x10^3/uL Lymphocytes # (Auto) 1.0 x10^3/uL Monocytes # (Auto) 0.3 x10^3/uL Eosinophils # (Auto) 0.2 x10^3/uL Basophils # (Auto) 0.0 x10^3/uL Sodium Level 129 mmol/L Potassium Level 3.5 mmol/L Chloride Level 91 mmol/L Carbon Dioxide Level 27 mmol/L Anion Gap 11 Blood Urea Nitrogen 57 mg/dL Creatinine 8.4 mg/dL Estimated GFR (Cockcroft-Gault) 7.5 BUN/Creatinine Ratio 7 Glucose Level 80 mg/dL Calcium Level 6.7 mg/dL Total Bilirubin 0.5 mg/dL Aspartate Amino Transf (AST/SGOT) 653 U/L Alanine Aminotransferase (ALT/SGPT) 307 U/L Alkaline Phosphatase 57 U/L Creatine Kinase 11558 U/L Total Protein 5.0 g/dL Albumin 1.8 g/dL Albumin/Globulin Ratio 0.6 HIV (1&2) Antibody Screen Nonreactive ANAEROBIC-AEROBIC CULTURE PENDING ANAEROBIC RES 1 PENDING AEROBIC CULT PENDING AEROBIC RES 1 PENDING GRAM STAIN Final Final report GRAM STAIN RES 1 Final Comment No white blood cells seen. GRAM STAIN RES 2 Final No organisms seen URINE CULTURE Final Final report URINE CULTURE RES 1 Final No growth BLOOD CULTURE Preliminary NO GROWTH AFTER 2 DAYS PE: GEN: NAD LUNGS: room air HEART: RRR ABD: soft NEURO/PSYCH: sleeping, not awakened A/P: Transaminitis - still improving Abnormal Hep C Ab - PCR pending -- Continue same. LARRY HARDY Sep 14, 2018 11:02
[2018-09-14] MEDS: LINEZOLID 600 MG TABLET PO SCH ×2 (11:24→21:00)
[2018-09-14] MEDS ORDERED: HEPARIN for IV BOLUS 10,000 UNIT/10 ML VIAL. IV PRN (12:00)
[2018-09-14] MEDS ORDERED: HEPARIN for IV BOLUS 10,000 UNIT/10 ML VIAL. IV ONE (12:00)
[2018-09-14 12:15] LABS: ALBUMIN,CSF 28 mg/dL (11-48); ALBUMIN,SERUM 3.1 g/dL (3.5-5.5); CSF IGG INDEX 0.7 (0.0-0.7); IGG,SERUM 621 mg/dL (700-1600)
[2018-09-14] MEDS ORDERED: POTASSIUM CHLORIDE 20 MEQ in DIALYSIS SOLUTION BGK 0/2.5 5,000 ML IV SCH ×2 (12:45→13:00)
[2018-09-14] MEDS ORDERED: POTASSIUM CHLORIDE 10 MEQ in DIALYSIS SOLUTION BGK 0/2.5 5,000 ML IV SCH ×4 (13:00)
[2018-09-14] MEDS ORDERED: CALCIUM CHLORIDE IV SCH (13:00)
[2018-09-14] MEDS ORDERED: POTASSIUM CHLORIDE 10 MEQ, CALCIUM CHLORIDE 12.5 MEQ in DIALYSIS SOLUTION BGK 2/0 5,000 ML IV SCH ×6 (13:00)
[2018-09-14] MEDS ORDERED: DIALYSIS IV SCH ×4 (13:00→18:00)
[2018-09-14] MEDS ORDERED: POTASSIUM CHLORIDE IV SCH ×5 (13:00→18:00)
[2018-09-14] MEDS ORDERED: [UNRECOGNIZED DRUG - OTHER] IV SCH (13:00)
[2018-09-14 13:03] LABS: BASO % 0 % (0-3); EOS # 0.2 x10^3/uL (0.0-0.7); EOS % 2 % (0-3); HEMATOCRIT 32.6 % (39.0-53.0); HEMOGLOBIN 11.5 g/dL (13.0-17.5); LYMPH # 0.7 x10^3/uL (1.0-4.8); LYMPH % 10 % (24-48); MEAN CORPUSCULAR HEMOGLOBIN 30 pg (25-35); MEAN CORPUSCULAR HGB CONC 35 g/dL (31-37); MEAN CORPUSCULAR VOLUME 83 fL (79-100); MONO # 0.3 x10^3/uL (0.0-1.1); MONO % 4 % (0-9); NEUT % 84 % (31-73); PLATELET COUNT 178 x10^3/uL (140-400); RED BLOOD COUNT 3.92 x10^6/uL (4.30-5.70); RED CELL DISTRIBUTION WIDTH 13.2 % (11.5-14.5); WHITE BLOOD COUNT 7.1 x10^3/uL (4.0-11.0)
[2018-09-14 13:10] LABS: CALCIUM 6.6 mg/dL (8.5-10.1); CREATININE 8.7 mg/dL (0.7-1.3); GFR 7.2; MAGNESIUM 1.9 mg/dL (1.8-2.4); PHOSPHORUS 6.6 mg/dL (2.6-4.7); POTASSIUM 3.7 mmol/L (3.5-5.1)
[2018-09-14 13:14] LABS: PROTHROMBIN TIME PATIENT 14.6 SEC (11.7-14.0)
[2018-09-14] MEDS: cefTRIAXone IV Push 2 GM VIAL. IVP SCH (13:49)
[2018-09-14] MEDS: POTASSIUM CHLORIDE 20 MEQ in DIALYSIS SOLUTION BGK 0/2.5 5,000 ML IV SCH ×4 (16:31→21:07)
--- NOTE | 2018-09-14 16:58 | PDOC ---
SUBJECTIVE ROS No acute events overnight OBJECTIVE Vital Signs Vital Signs Date Time Temp Pulse Resp B/P (MAP) Pulse Ox O2 Delivery O2 Flow Rate FiO2 09/14/18 16:00 Room Air 09/14/18 16:00 98.0 90 13 127/84 (98) 94 98.0 09/13/18 19:50 98.0 I & 0 Intake and Output 09/14/18 07:00 Intake Total 1580 ml Output Total 20 ml Balance 1560 ml Intake Oral 1020 ml IV Total 560 ml Output Urine Total 20 ml PHYSICAL EXAM Physical Exam GEN: NAD HEENT: Sclerae nonicteric, OM moist NECK: Supple. LUNGS: Clear, No accessory muscle use CARDIOVASCULAR: Regular rate. ABDOMEN: Soft, NT EXTREMITIES: edema in the right hand, LE edema trace SKIN-He has multiple punctate skin,lesions. He has some ulceration in one of the right hand finger. - Fernandez + NEURO- per Neurologist exam , AXOX3 DIAGNOSIS/ASSESSMENT Assessment & Plan CARO - ATN2/2 Rhabdo , Meth use Urinary retention at Presentation,Anuric now No response to IVF Requiring HD - 1 st Tx 09/12 CRRT today as ordered, [employer] Rhabdo- CPK>100,000 Follow CPK, No significant diuresis with IVF CRRT Hyperkalemia- Normal K Hyponatremia- stable, not normalized Severe Metabolic acidosis- 2/2 all above Resolved Transaminitis - Improving LFT's Hypocalcemia- severe 2/2 Rhabdo Replace cautiously and Monitor closely for Hypercalcemia during recovery phase Discussed with RN COMMENT/RELEVANT DATA Meds Current Medications Medications (Trade) Dose Ordered Sig/Mirela Start Time Stop Time Status Last Admin Dose Admin Albuterol Sulfate (Ventolin Neb Soln) 10 mg 1X ONCE 09/11/18 23:00 09/11/18 23:01 DC 09/12/18 00:30 10 MG Atropine Sulfate (ATROPINE 0.5mg SYRINGE) 0.5 mg PRN Q5MIN PRN 09/12/18 14:15 Calcium Gluconate (Calcium Gluconate) 2,000 mg 1X ONCE 09/12/18 12:00 09/12/18 12:01 DC 09/12/18 13:38 2,000 MG Calcium Gluconate 2000 mg/Dextrose 120 ml @ 220 mls/hr 1X ONCE 09/13/18 10:00 09/13/18 10:32 DC 09/13/18 10:05 220 MLS/HR Ceftriaxone Sodium (Rocephin) 2 gm Q24H 09/13/18 13:00 09/14/18 13:49 2 GM Dexmedetomidine HCl 200 mcg/ Sodium Chloride 50 ml @ 0 mls/hr CONT PRN 09/12/18 14:15 09/14/18 14:57 12 MLS/HR Dextrose (Dextrose 50%-Water Syringe) 25 gm 1X ONCE 09/11/18 23:00 09/11/18 23:01 DC 09/11/18 22:42 25 GM Diphenhydramine HCl (Benadryl) 25 mg 1X PRN PRN 09/13/18 11:15 09/14/18 11:14 DC Haloperidol Lactate (Haldol Inj) 1 mg PRN Q8HRS PRN 09/12/18 14:00 09/14/18 07:56 1 MG Heparin Sodium (Porcine) (Heparin Sodium) 2,500 unit PRN Q6HRS PRN 09/14/18 12:00 Heparin Sodium/ Dextrose 500 ml @ 0 mls/hr CONT PRN 09/14/18 12:00 Info (PHARMACY MONITORING -- do not chart) 1 each PRN DAILY PRN 09/13/18 11:15 Insulin Human Regular (HumuLIN R VIAL) 10 unit 1X ONCE 09/11/18 23:00 09/11/18 23:01 DC 09/11/18 23:51 10 UNIT Lidocaine/Sodium Bicarbonate (Buffered Lidocaine 1%) 6 ml 1X ONCE 09/12/18 14:15 09/12/18 14:16 DC Linezolid (Zyvox) 600 mg BID 09/13/18 09:00 09/14/18 11:24 600 MG Lorazepam (Ativan Inj) 2 mg PRN Q2HRS PRN 09/12/18 14:00 09/14/18 07:57 2 MG Morphine Sulfate (Morphine Sulfate) 4 mg PRN Q4HRS PRN 09/12/18 09:00 09/14/18 13:57 4 MG Ondansetron HCl (Zofran) 4 mg PRN Q8HRS PRN 09/12/18 01:15 09/13/18 01:14 DC Pantoprazole Sodium (PROTONIX VIAL for IV PUSH) 40 mg DAILYAC 09/13/18 07:30 09/14/18 08:02 40 MG Pantoprazole Sodium (Protonix) 40 mg DAILYAC 09/12/18 13:30 09/12/18 19:22 DC Polyethylene Glycol (miraLAX PACKET) 17 gm DAILY 09/12/18 13:30 Potassium Chloride 10 meq/ Bicarbonate Dialysis Soln w/ out KCl 5,005 ml @ 1,500 mls/hr Q3H21M 09/14/18 13:00 09/14/18 13:00 DC Potassium Chloride 10 meq/ Calcium Chloride 12.5 meq/ Bicarbonate Dialysis Soln w/ out KCl 5,013.9286 ml @ 1,000 mls/hr Q5H1M 09/14/18 13:00 09/14/18 13:00 DC Potassium Chloride 20 meq/ Bicarbonate Dialysis Soln w/ out KCl 5,010 ml @ 1,500 mls/hr Q3H21M 09/14/18 18:01 Potassium Chloride 20 meq/ Calcium Chloride 12.5 meq/ Bicarbonate Dialysis Soln w/ out KCl 5,018.9286 ml @ 1,500 mls/hr Q3H21M 09/14/18 13:00 09/14/18 13:00 DC Potassium Chloride 30 meq/ Bicarbonate Dialysis Soln w/ out KCl 5,015 ml @ 1,500 mls/hr Q3H21M 09/14/18 18:00 Potassium Chloride 40 meq/ Bicarbonate Dialysis Soln w/ out KCl 5,020 ml @ 1,500 mls/hr Q3H21M 09/14/18 13:00 09/14/18 13:10 DC Potassium Chloride 60 meq/ Bicarbonate Dialysis Soln w/ out KCl 5,030 ml @ 1,500 mls/hr Q3H22M 09/14/18 13:00 09/14/18 13:07 DC Silver Sulfadiazine (Silvadene) 1 elinor BID 09/12/18 13:00 09/13/18 15:04 DC 09/13/18 10:06 1 ELINOR Sodium Bicarbonate (Sodium Bicarb Adult 8.4% Syr) 100 meq 1X ONCE 09/12/18 10:00 09/12/18 10:01 DC 09/12/18 10:02 100 MEQ Sodium Chloride 1,000 ml @ 400 mls/hr Q2H30M PRN 09/13/18 11:06 7/11/19 23:05 DC Sodium Chloride (Normal Saline Flush) 3 ml QSHIFT PRN 09/12/18 01:15 Lab Laboratory Tests Test 09/14/18 06:30 09/14/18 12:20 White Blood Count 6.5 x10^3/uL (4.0-11.0) 7.1 x10^3/uL (4.0-11.0) Red Blood Count 3.91 x10^6/uL (4.30-5.70) 3.92 x10^6/uL (4.30-5.70) Hemoglobin 11.4 g/dL (13.0-17.5) 11.5 g/dL (13.0-17.5) Hematocrit 32.6 % (39.0-53.0) 32.6 % (39.0-53.0) Mean Corpuscular Volume 83 fL (79-100) 83 fL (79-100) Mean Corpuscular Hemoglobin 29 pg (25-35) 30 pg (25-35) Mean Corpuscular Hemoglobin Concent 35 g/dL (31-37) 35 g/dL (31-37) Red Cell Distribution Width 12.9 % (11.5-14.5) 13.2 % (11.5-14.5) Platelet Count 166 x10^3/uL (140-400) 178 x10^3/uL (140-400) Neutrophils (%) (Auto) 76 % (31-73) 84 % (31-73) Lymphocytes (%) (Auto) 15 % (24-48) 10 % (24-48) Monocytes (%) (Auto) 5 % (0-9) 4 % (0-9) Eosinophils (%) (Auto) 3 % (0-3) 2 % (0-3) Basophils (%) (Auto) 1 % (0-3) 0 % (0-3) Neutrophils # (Auto) 4.9 x10^3/uL (1.8-7.7) 6.0 x10^3/uL (1.8-7.7) Lymphocytes # (Auto) 1.0 x10^3/uL (1.0-4.8) 0.7 x10^3/uL (1.0-4.8) Monocytes # (Auto) 0.3 x10^3/uL (0.0-1.1) 0.3 x10^3/uL (0.0-1.1) Eosinophils # (Auto) 0.2 x10^3/uL (0.0-0.7) 0.2 x10^3/uL (0.0-0.7) Basophils # (Auto) 0.0 x10^3/uL (0.0-0.2) 0.0 x10^3/uL (0.0-0.2) Sodium Level 129 mmol/L (136-145) 128 mmol/L (136-145) Potassium Level 3.5 mmol/L (3.5-5.1) 3.7 mmol/L (3.5-5.1) Chloride Level 91 mmol/L (98-107) 88 mmol/L (98-107) Carbon Dioxide Level 27 mmol/L (21-32) 24 mmol/L (21-32) Anion Gap 11 (6-14) 16 (6-14) Blood Urea Nitrogen 57 mg/dL (8-26) 59 mg/dL (8-26) Creatinine 8.4 mg/dL (0.7-1.3) 8.7 mg/dL (0.7-1.3) Estimated GFR (Cockcroft-Gault) 7.5 7.2 BUN/Creatinine Ratio 7 (6-20) Glucose Level 80 mg/dL (70-99) 79 mg/dL (70-99) Calcium Level 6.7 mg/dL (8.5-10.1) 6.6 mg/dL (8.5-10.1) Total Bilirubin 0.5 mg/dL (0.2-1.0) Aspartate Amino Transf (AST/SGOT) 653 U/L (15-37) Alanine Aminotransferase (ALT/SGPT) 307 U/L (16-63) Alkaline Phosphatase 57 U/L (46-116) Creatine Kinase 42676 U/L (39-308) Total Protein 5.0 g/dL (6.4-8.2) Albumin 1.8 g/dL (3.4-5.0) Albumin/Globulin Ratio 0.6 (1.0-1.7) HIV (1&2) Antibody Screen Nonreactive (Nonreactive) Prothrombin Time 14.6 SEC (11.7-14.0) Prothromb Time International Ratio 1.2 (0.8-1.1) Activated Partial Thromboplast Time 35 SEC (24-38) Phosphorus Level 6.6 mg/dL (2.6-4.7) Magnesium Level 1.9 mg/dL (1.8-2.4) Results All relevant outside records, renal labs, imaging studies, telemetry/EKG's were reviewed. LAVONNE RODAS MD Sep 14, 2018 16:58
[2018-09-14 19:10] LABS: ANA INTERP Negative (.)
[2018-09-14] MEDS: HEPARIN 25,000UTS/500ML PREMIX 500 ML IV PRN (20:20)
[2018-09-14 21:07] LABS: HCV ULTRA QUANT PCR HCV Not Detected IU/mL (.)
[2018-09-15] VITALS (24 sets, daily range): BP systolic 117–172; BP diastolic 65–100
[2018-09-15] MEDS: POTASSIUM CHLORIDE 20 MEQ in DIALYSIS SOLUTION BGK 0/2.5 5,000 ML IV SCH ×18 (00:06→20:55)
[2018-09-15] MEDS: DEXMEDETOMIDINE 200 MCG in IV NORMAL SALINE 50ML 48 ML IV PRN ×4 (00:55→10:28)
[2018-09-15 03:17] LABS: BASO % 1 % (0-3); EOS # 0.2 x10^3/uL (0.0-0.7); EOS % 4 % (0-3); HEMATOCRIT 31.8 % (39.0-53.0); HEMOGLOBIN 11.4 g/dL (13.0-17.5); LYMPH % 16 % (24-48); MEAN CORPUSCULAR HEMOGLOBIN 30 pg (25-35); MEAN CORPUSCULAR HGB CONC 36 g/dL (31-37); MEAN CORPUSCULAR VOLUME 82 fL (79-100); MONO # 0.2 x10^3/uL (0.0-1.1); MONO % 3 % (0-9); NEUT # 4.5 x10^3/uL (1.8-7.7); NEUT % 76 % (31-73); PLATELET COUNT 172 x10^3/uL (140-400); RED BLOOD COUNT 3.86 x10^6/uL (4.30-5.70); RED CELL DISTRIBUTION WIDTH 12.9 % (11.5-14.5); WHITE BLOOD COUNT 5.9 x10^3/uL (4.0-11.0)
[2018-09-15 03:55] LABS: CREATININE 5.9 mg/dL (0.7-1.3); GFR 11.3; MAGNESIUM 2.1 mg/dL (1.8-2.4); PHOSPHORUS 4.1 mg/dL (2.6-4.7); POTASSIUM 3.9 mmol/L (3.5-5.1)
--- NOTE | 2018-09-15 06:57 | PDOC ---
PULMONARY PROGRESS NOTES Subjective on precedex drip, on crrt, hep gtt, doesnt follow my command, inappropriate off sedation per rn Vitals Vital Signs Date Time Temp Pulse Resp B/P (MAP) Pulse Ox O2 Delivery O2 Flow Rate FiO2 09/15/18 06:00 74 13 117/75 (89) 98 Room Air 09/15/18 04:00 97.8 97.8 09/15/18 00:00 98.0 Comments ros as mentioned as above, discussed w rn, other sys otherwise neg General: No acute distress, Lethargic HEENT: Other (nc at perrl nose clear neck no lad no thyromegaly) Lungs: Crackles Cardiovascular: S1, S2 Abdomen: Soft, Non-tender, Other (no mass) Extremities: Other (1+edema,) Skin: Warm Labs Laboratory Tests Test 09/14/18 06:30 09/14/18 12:20 09/15/18 03:00 White Blood Count 6.5 x10^3/uL (4.0-11.0) 7.1 x10^3/uL (4.0-11.0) 5.9 x10^3/uL (4.0-11.0) Red Blood Count 3.91 x10^6/uL (4.30-5.70) 3.92 x10^6/uL (4.30-5.70) 3.86 x10^6/uL (4.30-5.70) Hemoglobin 11.4 g/dL (13.0-17.5) 11.5 g/dL (13.0-17.5) 11.4 g/dL (13.0-17.5) Hematocrit 32.6 % (39.0-53.0) 32.6 % (39.0-53.0) 31.8 % (39.0-53.0) Mean Corpuscular Volume 83 fL (79-100) 83 fL (79-100) 82 fL (79-100) Mean Corpuscular Hemoglobin 29 pg (25-35) 30 pg (25-35) 30 pg (25-35) Mean Corpuscular Hemoglobin Concent 35 g/dL (31-37) 35 g/dL (31-37) 36 g/dL (31-37) Red Cell Distribution Width 12.9 % (11.5-14.5) 13.2 % (11.5-14.5) 12.9 % (11.5-14.5) Platelet Count 166 x10^3/uL (140-400) 178 x10^3/uL (140-400) 172 x10^3/uL (140-400) Neutrophils (%) (Auto) 76 % (31-73) 84 % (31-73) 76 % (31-73) Lymphocytes (%) (Auto) 15 % (24-48) 10 % (24-48) 16 % (24-48) Monocytes (%) (Auto) 5 % (0-9) 4 % (0-9) 3 % (0-9) Eosinophils (%) (Auto) 3 % (0-3) 2 % (0-3) 4 % (0-3) Basophils (%) (Auto) 1 % (0-3) 0 % (0-3) 1 % (0-3) Neutrophils # (Auto) 4.9 x10^3/uL (1.8-7.7) 6.0 x10^3/uL (1.8-7.7) 4.5 x10^3/uL (1.8-7.7) Lymphocytes # (Auto) 1.0 x10^3/uL (1.0-4.8) 0.7 x10^3/uL (1.0-4.8) 1.0 x10^3/uL (1.0-4.8) Monocytes # (Auto) 0.3 x10^3/uL (0.0-1.1) 0.3 x10^3/uL (0.0-1.1) 0.2 x10^3/uL (0.0-1.1) Eosinophils # (Auto) 0.2 x10^3/uL (0.0-0.7) 0.2 x10^3/uL (0.0-0.7) 0.2 x10^3/uL (0.0-0.7) Basophils # (Auto) 0.0 x10^3/uL (0.0-0.2) 0.0 x10^3/uL (0.0-0.2) 0.0 x10^3/uL (0.0-0.2) Sodium Level 129 mmol/L (136-145) 128 mmol/L (136-145) 130 mmol/L (136-145) Potassium Level 3.5 mmol/L (3.5-5.1) 3.7 mmol/L (3.5-5.1) 3.9 mmol/L (3.5-5.1) Chloride Level 91 mmol/L (98-107) 88 mmol/L (98-107) 96 mmol/L (98-107) Carbon Dioxide Level 27 mmol/L (21-32) 24 mmol/L (21-32) 25 mmol/L (21-32) Anion Gap 11 (6-14) 16 (6-14) 9 (6-14) Blood Urea Nitrogen 57 mg/dL (8-26) 59 mg/dL (8-26) 44 mg/dL (8-26) Creatinine 8.4 mg/dL (0.7-1.3) 8.7 mg/dL (0.7-1.3) 5.9 mg/dL (0.7-1.3) Estimated GFR (Cockcroft-Gault) 7.5 7.2 11.3 BUN/Creatinine Ratio 7 (6-20) Glucose Level 80 mg/dL (70-99) 79 mg/dL (70-99) 100 mg/dL (70-99) Calcium Level 6.7 mg/dL (8.5-10.1) 6.6 mg/dL (8.5-10.1) 7.0 mg/dL (8.5-10.1) Total Bilirubin 0.5 mg/dL (0.2-1.0) Aspartate Amino Transf (AST/SGOT) 653 U/L (15-37) Alanine Aminotransferase (ALT/SGPT) 307 U/L (16-63) Alkaline Phosphatase 57 U/L (46-116) Creatine Kinase 97019 U/L (39-308) Total Protein 5.0 g/dL (6.4-8.2) Albumin 1.8 g/dL (3.4-5.0) Albumin/Globulin Ratio 0.6 (1.0-1.7) HIV (1&2) Antibody Screen Nonreactive (Nonreactive) Prothrombin Time 14.6 SEC (11.7-14.0) Prothromb Time International Ratio 1.2 (0.8-1.1) Activated Partial Thromboplast Time 35 SEC (24-38) Phosphorus Level 6.6 mg/dL (2.6-4.7) 4.1 mg/dL (2.6-4.7) Magnesium Level 1.9 mg/dL (1.8-2.4) 2.1 mg/dL (1.8-2.4) Heparin Anti-Xa Act, Unfractionated 0.29 IU/mL (0.30-0.70) Laboratory Tests Test 09/14/18 12:20 09/15/18 03:00 White Blood Count 7.1 x10^3/uL (4.0-11.0) 5.9 x10^3/uL (4.0-11.0) Red Blood Count 3.92 x10^6/uL (4.30-5.70) 3.86 x10^6/uL (4.30-5.70) Hemoglobin 11.5 g/dL (13.0-17.5) 11.4 g/dL (13.0-17.5) Hematocrit 32.6 % (39.0-53.0) 31.8 % (39.0-53.0) Mean Corpuscular Volume 83 fL (79-100) 82 fL (79-100) Mean Corpuscular Hemoglobin 30 pg (25-35) 30 pg (25-35) Mean Corpuscular Hemoglobin Concent 35 g/dL (31-37) 36 g/dL (31-37) Red Cell Distribution Width 13.2 % (11.5-14.5) 12.9 % (11.5-14.5) Platelet Count 178 x10^3/uL (140-400) 172 x10^3/uL (140-400) Neutrophils (%) (Auto) 84 % (31-73) 76 % (31-73) Lymphocytes (%) (Auto) 10 % (24-48) 16 % (24-48) Monocytes (%) (Auto) 4 % (0-9) 3 % (0-9) Eosinophils (%) (Auto) 2 % (0-3) 4 % (0-3) Basophils (%) (Auto) 0 % (0-3) 1 % (0-3) Neutrophils # (Auto) 6.0 x10^3/uL (1.8-7.7) 4.5 x10^3/uL (1.8-7.7) Lymphocytes # (Auto) 0.7 x10^3/uL (1.0-4.8) 1.0 x10^3/uL (1.0-4.8) Monocytes # (Auto) 0.3 x10^3/uL (0.0-1.1) 0.2 x10^3/uL (0.0-1.1) Eosinophils # (Auto) 0.2 x10^3/uL (0.0-0.7) 0.2 x10^3/uL (0.0-0.7) Basophils # (Auto) 0.0 x10^3/uL (0.0-0.2) 0.0 x10^3/uL (0.0-0.2) Prothrombin Time 14.6 SEC (11.7-14.0) Prothromb Time International Ratio 1.2 (0.8-1.1) Activated Partial Thromboplast Time 35 SEC (24-38) Sodium Level 128 mmol/L (136-145) 130 mmol/L (136-145) Potassium Level 3.7 mmol/L (3.5-5.1) 3.9 mmol/L (3.5-5.1) Chloride Level 88 mmol/L (98-107) 96 mmol/L (98-107) Carbon Dioxide Level 24 mmol/L (21-32) 25 mmol/L (21-32) Anion Gap 16 (6-14) 9 (6-14) Blood Urea Nitrogen 59 mg/dL (8-26) 44 mg/dL (8-26) Creatinine 8.7 mg/dL (0.7-1.3) 5.9 mg/dL (0.7-1.3) Estimated GFR (Cockcroft-Gault) 7.2 11.3 Glucose Level 79 mg/dL (70-99) 100 mg/dL (70-99) Calcium Level 6.6 mg/dL (8.5-10.1) 7.0 mg/dL (8.5-10.1) Phosphorus Level 6.6 mg/dL (2.6-4.7) 4.1 mg/dL (2.6-4.7) Magnesium Level 1.9 mg/dL (1.8-2.4) 2.1 mg/dL (1.8-2.4) Heparin Anti-Xa Act, Unfractionated 0.29 IU/mL (0.30-0.70) Medications Active Scripts Medications Dose Route/Sig Max Daily Dose Days Date Category Protonix (Pantoprazole Sodium) 20 Mg Tablet.dr 2 Tab PO DAILY 09/12/18 Reported Zyprexa (Olanzapine) 20 Mg Tablet 2 Tab PO QHS 09/12/18 Reported Buspirone Hcl 30 Mg Tablet 1 Tab PO BID 09/12/18 Reported Comments cxr reviewed ?new perihilar infilt Impression . 1. Status post fall with acute rhabdomyolysis with markedly high CPKs and acute renal failure. 2. Acute kidney injury secondary to rhabdomyolysis. 3. Severe metabolic acidosis secondary to acute kidney injury. Clinically, less likely sepsis. Lactic acid is 1.1 4. Hyponatremia.improving 5. Moderate protein-calorie malnutrition. 6. Leukocytosis, likely reactive. 7. Status post fall with abnormal thoracic MRI. Neurosurgery following. 8. Abnormal liver function test secondary to hypoperfusion and rhabdomyolysis. 9. Hypocalcemia.improving Plan . 1. s/p fluid resuscitation , started on HD, now on CRRT 2. Follow Renal's recommendation. 3. prn bicarbonate. 4. Monitor sodium level. improving 5. Follow Neurology and Neurosurgery's recommendation. 6. Continue empiric antibiotic, per id 7. Follow CPKs., trending down 8. Correct calcium and follow the levels.improving 9. chest x-ray, ? new perihilar infilt. 10. avoid oversedation Discussed with RN and will follow along with you. NOEL ESQUIVEL MD Sep 15, 2018 06:57
--- NOTE | 2018-09-15 08:26 | NUR ---
Pt's filter clotted off so pt disconnected from CRRT machine at 0815. environmental auditor on unit, will change system.
[2018-09-15] MEDS: LINEZOLID 600 MG TABLET PO SCH ×2 (09:05→21:52)
[2018-09-15] MEDS: PANTOPRAZOLE IV PUSH 40 MG VIAL. IVP SCH (09:05)
[2018-09-15] MEDS: POLYETHYLENE GLYCOL 3350 17 GM PACKET. PO SCH (09:05)
--- NOTE | 2018-09-15 09:11 | PDOC ---
Infectious Disease Note Subjective Subjective CRRT Confused No fevers ROS ROS unable obtain Vital Sign Vital Signs Vital Signs Date Time Temp Pulse Resp B/P (MAP) Pulse Ox O2 Delivery O2 Flow Rate FiO2 09/15/18 08:00 96.8 77 15 145/81 (102) 96 Room Air 96.8 09/15/18 00:00 98.0 Physical Exam PHYSICAL EXAM GENERAL: Resting quietly, mitts, CRRT EENT: Pupils equal, oral cavity dry NECK: Supple. LUNGS: Clear bilaterally. No wheezing. HEART: S1, S2, regular ABDOMEN: Soft, nontender, BS present : Fernandez EXTREMITIES: Edema present, burn with ulceration over the thumb and the finger in the right hand, superficial. No sinus tract noted. Mild swelling present over the dorsum of the hand. No wrist swelling. Multiple tubbs over both upper and lower extremity. Edema over both lower extremities. CENTRAL NERVOUS SYSTEM: Arouses to name, follows simple commands RIJ/HDC (09/12) Labs Lab Laboratory Tests Test 09/14/18 12:20 09/15/18 03:00 White Blood Count 7.1 x10^3/uL (4.0-11.0) 5.9 x10^3/uL (4.0-11.0) Red Blood Count 3.92 x10^6/uL (4.30-5.70) 3.86 x10^6/uL (4.30-5.70) Hemoglobin 11.5 g/dL (13.0-17.5) 11.4 g/dL (13.0-17.5) Hematocrit 32.6 % (39.0-53.0) 31.8 % (39.0-53.0) Mean Corpuscular Volume 83 fL (79-100) 82 fL (79-100) Mean Corpuscular Hemoglobin 30 pg (25-35) 30 pg (25-35) Mean Corpuscular Hemoglobin Concent 35 g/dL (31-37) 36 g/dL (31-37) Red Cell Distribution Width 13.2 % (11.5-14.5) 12.9 % (11.5-14.5) Platelet Count 178 x10^3/uL (140-400) 172 x10^3/uL (140-400) Neutrophils (%) (Auto) 84 % (31-73) 76 % (31-73) Lymphocytes (%) (Auto) 10 % (24-48) 16 % (24-48) Monocytes (%) (Auto) 4 % (0-9) 3 % (0-9) Eosinophils (%) (Auto) 2 % (0-3) 4 % (0-3) Basophils (%) (Auto) 0 % (0-3) 1 % (0-3) Neutrophils # (Auto) 6.0 x10^3/uL (1.8-7.7) 4.5 x10^3/uL (1.8-7.7) Lymphocytes # (Auto) 0.7 x10^3/uL (1.0-4.8) 1.0 x10^3/uL (1.0-4.8) Monocytes # (Auto) 0.3 x10^3/uL (0.0-1.1) 0.2 x10^3/uL (0.0-1.1) Eosinophils # (Auto) 0.2 x10^3/uL (0.0-0.7) 0.2 x10^3/uL (0.0-0.7) Basophils # (Auto) 0.0 x10^3/uL (0.0-0.2) 0.0 x10^3/uL (0.0-0.2) Prothrombin Time 14.6 SEC (11.7-14.0) Prothromb Time International Ratio 1.2 (0.8-1.1) Activated Partial Thromboplast Time 35 SEC (24-38) Sodium Level 128 mmol/L (136-145) 130 mmol/L (136-145) Potassium Level 3.7 mmol/L (3.5-5.1) 3.9 mmol/L (3.5-5.1) Chloride Level 88 mmol/L (98-107) 96 mmol/L (98-107) Carbon Dioxide Level 24 mmol/L (21-32) 25 mmol/L (21-32) Anion Gap 16 (6-14) 9 (6-14) Blood Urea Nitrogen 59 mg/dL (8-26) 44 mg/dL (8-26) Creatinine 8.7 mg/dL (0.7-1.3) 5.9 mg/dL (0.7-1.3) Estimated GFR (Cockcroft-Gault) 7.2 11.3 Glucose Level 79 mg/dL (70-99) 100 mg/dL (70-99) Calcium Level 6.6 mg/dL (8.5-10.1) 7.0 mg/dL (8.5-10.1) Phosphorus Level 6.6 mg/dL (2.6-4.7) 4.1 mg/dL (2.6-4.7) Magnesium Level 1.9 mg/dL (1.8-2.4) 2.1 mg/dL (1.8-2.4) Heparin Anti-Xa Act, Unfractionated 0.29 IU/mL (0.30-0.70) Micro 09/12/18 Blood Culture - Preliminary, Resulted NO GROWTH AFTER 3 DAYS 09/12. GRAM STAIN,CSF Final WBCS OCCASIONAL ORGANISMS NONE SEEN 09/11. URINE CULTURE RES 1 Final No growth Objective Assessment Right hand burn to index finger with cellulitis, superficial. No evidence of sinus tract. X ray neg - no I and D at this point per Ortho History of intravenous drug use Leukocytosis, likely reactive.resolved History of fall with rhabdomyolysis. CK >100,000 Hyponatremia, hyperkalemia, severe metabolic acidosis, acute kidney injury on CRRT Transaminitis. Gallbladder sludge on ultrasound. Encephalopathy - S/p LP 09/12 Methicillin-resistant Staphylococcus aureus screen positive. Bilateral lower extremity weakness, numbness and history of fall prior to admission. Urinary retention. Paresthesia. Abnormal T2 signal within the right greater than left paraspinal musculature and psoas, which can be seen with edema in these regions. Neurology and Neurosurgery consulted. Hematuria with occasional wbc's on urinalysis. Plan Plan of Care Cont Rocephin and Zyvox. local wound care. F/u labs and cults D/w nursing. Attending Co-Sign Attending Co-Sign The patient was seen and interviewed as well as examined at the bedside. The chart was reviewed. The case was discussed. Agree with the plan of care. ASIA VELASQUEZ APRN Sep 15, 2018 09:11 FATOU EVERETT MD Sep 15, 2018 13:17
[2018-09-15 09:28] LABS: CALCIUM 7.3 mg/dL (8.5-10.1); CREATININE 5.2 mg/dL (0.7-1.3); GFR 13.1; PHOSPHORUS 3.6 mg/dL (2.6-4.7); POTASSIUM 4.1 mmol/L (3.5-5.1)
[2018-09-15 09:31] LABS: BASO % 1 % (0-3); EOS # 0.2 x10^3/uL (0.0-0.7); EOS % 2 % (0-3); HEMATOCRIT 32.1 % (39.0-53.0); HEMOGLOBIN 11.3 g/dL (13.0-17.5); LYMPH # 0.5 x10^3/uL (1.0-4.8); LYMPH % 6 % (24-48); MEAN CORPUSCULAR HEMOGLOBIN 29 pg (25-35); MEAN CORPUSCULAR HGB CONC 35 g/dL (31-37); MEAN CORPUSCULAR VOLUME 83 fL (79-100); MONO # 0.2 x10^3/uL (0.0-1.1); MONO % 3 % (0-9); NEUT % 88 % (31-73); PLATELET COUNT 164 x10^3/uL (140-400); RED BLOOD COUNT 3.86 x10^6/uL (4.30-5.70); RED CELL DISTRIBUTION WIDTH 12.9 % (11.5-14.5); WHITE BLOOD COUNT 7.9 x10^3/uL (4.0-11.0)
--- NOTE | 2018-09-15 09:41 | RAD ---
CHEST AP ONLY Clinical indications: CRRT. History of chest pain. COMPARISON: September 12, 2018. Findings: Right IJ hemodialysis catheter is unchanged in position. There is a new finding of right perihilar lung infiltrate or pulmonary edema. No pleural effusion or pneumothorax is seen. The heart size and mediastinum are stable. Impression: New right perihilar lung infiltrate or pulmonary edema. Electronically signed by: Seymour Valles MD (09/15/2018 9:38 AM) [facility]
--- NOTE | 2018-09-15 10:03 | PDOC ---
PROGRESS NOTES History of Present Illness History of Present Illness VTE Prophylaxis Ordered VTE Prophylaxis Devices: No VTE Pharmacological Prophylaxi: Contraindicated Assessment/Plan ARF from the rhabdomyolysis. GB sludge of questionable signifi cance. TRANSAMINITIS Elevated troponin SUSPECT Stress induced Urinary tract infection Methamphetamine abuse, SEVERE Hyperkalemia Hyponatremia hypocalcemia Urinary retention Rhabdomyolysis Hypocalcemia- severe 2/2 Rhabdo paresthesia evidence of degenerative changes the spine with disc protrusions and annular tears at L4-5 and L5-S1 as well as osteophyte formation at vertebral body endplates and facet hypertrophy. This contributes to central canal and neural foraminal stenosis Epidural lipomatosis is identified most severe in the lower lumbar spine extending into the sacrum with resultant small size of the thecal sac. High T2 signal is identified within the right greater than left paraspinal musculature and psoas which can be seen with edema to these regions. Can be seen with causes such as myositis, muscle strain or neurological in nature from causes such as denervation associated edema. Gallbladder was distended. Gallstones were not identified. There was mild sludge in the gallbladder. Gallbladder wall was upper normal in thickness. 3rd degree burn to right index finger with cellulitis severe, likely recurrent SEC TO HOLDING METH PIPE MRSA NARES POS possible hepatitis c 09/13 REMAINS AGITATED now on precedex sedation 09/14 started on HD, now on CRRT 09/15 New right perihilar lung infiltrate vs pulmonary edema. diet to gregoria d/w RN., HAS SITTER IN ROOM plan ADMIT ICU BED GI following hepatitis dx panel, viral, acute NOTED nephrology consult, DIALYSIS neurosurgery consult Neurology consulted and lumbar puncture CARDIOLOGY CONSULT ionized ca ID CONSULT IV ZYVOX ORTHO CONSULT REVIEWED POOR PROGNOSIS due to severe drug abuse per my chart review 37 MIN CC TIME Vitals Vitals Vital Signs Date Time Temp Pulse Resp B/P (MAP) Pulse Ox O2 Delivery O2 Flow Rate FiO2 09/15/18 09:00 91 18 149/75 (99) 98 Room Air 09/15/18 08:00 96.8 96.8 09/15/18 00:00 98.0 Physical Exam Physical Exam GENERAL: Resting quiet, mitts, CRRT eating full liquids well EENT: Pupils equal, oral cavity dry NECK: Supple. LUNGS: Clear bilaterally. No wheezing. HEART: S1, S2, regular ABDOMEN: Soft, nontender, BS present : Fernandez EXTREMITIES: Edema present, burn with ulceration over the thumb and the finger in the right hand, superficial. No sinus tract noted. Mild swelling present over the dorsum of the hand. No wrist swelling. Multiple tubbs over both upper and lower extremity. Edema over both lower extremities. CENTRAL NERVOUS SYSTEM: Arouses to name, follows simple commands [facility] (09/12) General: Oriented X3, Cooperative, mild distress Heart: Regular rate, Normal S1, No murmurs Lungs: Clear Abdomen: Normal bowel sounds, Soft, No hepatosplenomegaly, Other (obese, no fluid wave) Extremities: No clubbing, No cyanosis, No edema, Other (burn to right index finger APPEARS OLD associated cellulitis) Labs LABS PROCEDURE: CHEST AP ONLY CHEST AP ONLY Clinical indications: CRRT. History of chest pain. COMPARISON: September 12, 2018. Findings: Right IJ hemodialysis catheter is unchanged in position. There is a new finding of right perihilar lung infiltrate or pulmonary edema. No pleural effusion or pneumothorax is seen. The heart size and mediastinum are stable. Impression: New right perihilar lung infiltrate or pulmonary edema. Electronically signed by: Glenna Valles MD (09/15/2018 9:38 AM) [facility] NO PCP EMERY CHANEY MD ORDERED: ANAER/AEROB/GS Procedure Result ANAEROBIC-AEROBIC CULTURE PENDING ANAEROBIC RES 1 PENDING AEROBIC CULT PENDING AEROBIC RES 1 PENDING GRAM STAIN Final Final report GRAM STAIN RES 1 Final Comment No white blood cells seen. GRAM STAIN RES 2 Final No organisms seen Performed at: DA - [facility] [place] [address], [place], [place] [id number] Bilingual Social Worker: RADHA Cunningham MD, Phone: [phone] CHEST AP ONLY Clinical indications: CRRT. History of chest pain. COMPARISON: September 12, 2018. Findings: Right IJ hemodialysis catheter is unchanged in position. There is a new finding of right perihilar lung infiltrate or pulmonary edema. No pleural effusion or pneumothorax is seen. The heart size and mediastinum are stable. Impression: New right perihilar lung infiltrate or pulmonary edema. Electronically signed by: Glenna Valles MD (09/15/2018 9:38 AM) [facility] DICTATED and SIGNED BY: GLENNA VALLES MD DATE: 09/15/18937 Laboratory Tests Test 09/14/18 12:20 09/15/18 03:00 09/15/18 09:00 White Blood Count 7.1 x10^3/uL (4.0-11.0) 5.9 x10^3/uL (4.0-11.0) 7.9 x10^3/uL (4.0-11.0) Red Blood Count 3.92 x10^6/uL (4.30-5.70) 3.86 x10^6/uL (4.30-5.70) 3.86 x10^6/uL (4.30-5.70) Hemoglobin 11.5 g/dL (13.0-17.5) 11.4 g/dL (13.0-17.5) 11.3 g/dL (13.0-17.5) Hematocrit 32.6 % (39.0-53.0) 31.8 % (39.0-53.0) 32.1 % (39.0-53.0) Mean Corpuscular Volume 83 fL (79-100) 82 fL (79-100) 83 fL (79-100) Mean Corpuscular Hemoglobin 30 pg (25-35) 30 pg (25-35) 29 pg (25-35) Mean Corpuscular Hemoglobin Concent 35 g/dL (31-37) 36 g/dL (31-37) 35 g/dL (31-37) Red Cell Distribution Width 13.2 % (11.5-14.5) 12.9 % (11.5-14.5) 12.9 % (11.5-14.5) Platelet Count 178 x10^3/uL (140-400) 172 x10^3/uL (140-400) 164 x10^3/uL (140-400) Neutrophils (%) (Auto) 84 % (31-73) 76 % (31-73) 88 % (31-73) Lymphocytes (%) (Auto) 10 % (24-48) 16 % (24-48) 6 % (24-48) Monocytes (%) (Auto) 4 % (0-9) 3 % (0-9) 3 % (0-9) Eosinophils (%) (Auto) 2 % (0-3) 4 % (0-3) 2 % (0-3) Basophils (%) (Auto) 0 % (0-3) 1 % (0-3) 1 % (0-3) Neutrophils # (Auto) 6.0 x10^3/uL (1.8-7.7) 4.5 x10^3/uL (1.8-7.7) 7.0 x10^3/uL (1.8-7.7) Lymphocytes # (Auto) 0.7 x10^3/uL (1.0-4.8) 1.0 x10^3/uL (1.0-4.8) 0.5 x10^3/uL (1.0-4.8) Monocytes # (Auto) 0.3 x10^3/uL (0.0-1.1) 0.2 x10^3/uL (0.0-1.1) 0.2 x10^3/uL (0.0-1.1) Eosinophils # (Auto) 0.2 x10^3/uL (0.0-0.7) 0.2 x10^3/uL (0.0-0.7) 0.2 x10^3/uL (0.0-0.7) Basophils # (Auto) 0.0 x10^3/uL (0.0-0.2) 0.0 x10^3/uL (0.0-0.2) 0.0 x10^3/uL (0.0-0.2) Prothrombin Time 14.6 SEC (11.7-14.0) Prothromb Time International Ratio 1.2 (0.8-1.1) Activated Partial Thromboplast Time 35 SEC (24-38) Sodium Level 128 mmol/L (136-145) 130 mmol/L (136-145) 132 mmol/L (136-145) Potassium Level 3.7 mmol/L (3.5-5.1) 3.9 mmol/L (3.5-5.1) 4.1 mmol/L (3.5-5.1) Chloride Level 88 mmol/L (98-107) 96 mmol/L (98-107) 98 mmol/L (98-107) Carbon Dioxide Level 24 mmol/L (21-32) 25 mmol/L (21-32) 24 mmol/L (21-32) Anion Gap 16 (6-14) 9 (6-14) 10 (6-14) Blood Urea Nitrogen 59 mg/dL (8-26) 44 mg/dL (8-26) 35 mg/dL (8-26) Creatinine 8.7 mg/dL (0.7-1.3) 5.9 mg/dL (0.7-1.3) 5.2 mg/dL (0.7-1.3) Estimated GFR (Cockcroft-Gault) 7.2 11.3 13.1 Glucose Level 79 mg/dL (70-99) 100 mg/dL (70-99) 98 mg/dL (70-99) Calcium Level 6.6 mg/dL (8.5-10.1) 7.0 mg/dL (8.5-10.1) 7.3 mg/dL (8.5-10.1) Phosphorus Level 6.6 mg/dL (2.6-4.7) 4.1 mg/dL (2.6-4.7) 3.6 mg/dL (2.6-4.7) Magnesium Level 1.9 mg/dL (1.8-2.4) 2.1 mg/dL (1.8-2.4) Heparin Anti-Xa Act, Unfractionated 0.29 IU/mL (0.30-0.70) 0.34 IU/mL (0.30-0.70) Assessment and Plan Assessmemt and Plan Problems Medical Problems: (1) Elevated troponin Status: Acute (2) Hepatorenal syndrome Status: Acute (3) Hyperkalemia Status: Acute (4) Hyponatremia Status: Acute (5) Methamphetamine abuse Status: Acute (6) Neurological complaint Status: Acute (7) Rhabdomyolysis Status: Acute (8) Urinary retention Status: Acute (9) Urinary tract infection Status: Acute Comment Review of Relevant I have reviewed the following items ashlie (where applicable) has been applied. Labs Laboratory Tests Test 09/14/18 06:30 09/14/18 12:20 09/15/18 03:00 09/15/18 09:00 White Blood Count 6.5 x10^3/uL (4.0-11.0) 7.1 x10^3/uL (4.0-11.0) 5.9 x10^3/uL (4.0-11.0) 7.9 x10^3/uL (4.0-11.0) Red Blood Count 3.91 x10^6/uL (4.30-5.70) 3.92 x10^6/uL (4.30-5.70) 3.86 x10^6/uL (4.30-5.70) 3.86 x10^6/uL (4.30-5.70) Hemoglobin 11.4 g/dL (13.0-17.5) 11.5 g/dL (13.0-17.5) 11.4 g/dL (13.0-17.5) 11.3 g/dL (13.0-17.5) Hematocrit 32.6 % (39.0-53.0) 32.6 % (39.0-53.0) 31.8 % (39.0-53.0) 32.1 % (39.0-53.0) Mean Corpuscular Volume 83 fL (79-100) 83 fL (79-100) 82 fL (79-100) 83 fL (79-100) Mean Corpuscular Hemoglobin 29 pg (25-35) 30 pg (25-35) 30 pg (25-35) 29 pg (25-35) Mean Corpuscular Hemoglobin Concent 35 g/dL (31-37) 35 g/dL (31-37) 36 g/dL (31-37) 35 g/dL (31-37) Red Cell Distribution Width 12.9 % (11.5-14.5) 13.2 % (11.5-14.5) 12.9 % (11.5-14.5) 12.9 % (11.5-14.5) Platelet Count 166 x10^3/uL (140-400) 178 x10^3/uL (140-400) 172 x10^3/uL (140-400) 164 x10^3/uL (140-400) Neutrophils (%) (Auto) 76 % (31-73) 84 % (31-73) 76 % (31-73) 88 % (31-73) Lymphocytes (%) (Auto) 15 % (24-48) 10 % (24-48) 16 % (24-48) 6 % (24-48) Monocytes (%) (Auto) 5 % (0-9) 4 % (0-9) 3 % (0-9) 3 % (0-9) Eosinophils (%) (Auto) 3 % (0-3) 2 % (0-3) 4 % (0-3) 2 % (0-3) Basophils (%) (Auto) 1 % (0-3) 0 % (0-3) 1 % (0-3) 1 % (0-3) Neutrophils # (Auto) 4.9 x10^3/uL (1.8-7.7) 6.0 x10^3/uL (1.8-7.7) 4.5 x10^3/uL (1.8-7.7) 7.0 x10^3/uL (1.8-7.7) Lymphocytes # (Auto) 1.0 x10^3/uL (1.0-4.8) 0.7 x10^3/uL (1.0-4.8) 1.0 x10^3/uL (1.0-4.8) 0.5 x10^3/uL (1.0-4.8) Monocytes # (Auto) 0.3 x10^3/uL (0.0-1.1) 0.3 x10^3/uL (0.0-1.1) 0.2 x10^3/uL (0.0-1.1) 0.2 x10^3/uL (0.0-1.1) Eosinophils # (Auto) 0.2 x10^3/uL (0.0-0.7) 0.2 x10^3/uL (0.0-0.7) 0.2 x10^3/uL (0.0-0.7) 0.2 x10^3/uL (0.0-0.7) Basophils # (Auto) 0.0 x10^3/uL (0.0-0.2) 0.0 x10^3/uL (0.0-0.2) 0.0 x10^3/uL (0.0-0.2) 0.0 x10^3/uL (0.0-0.2) Sodium Level 129 mmol/L (136-145) 128 mmol/L (136-145) 130 mmol/L (136-145) 132 mmol/L (136-145) Potassium Level 3.5 mmol/L (3.5-5.1) 3.7 mmol/L (3.5-5.1) 3.9 mmol/L (3.5-5.1) 4.1 mmol/L (3.5-5.1) Chloride Level 91 mmol/L (98-107) 88 mmol/L (98-107) 96 mmol/L (98-107) 98 mmol/L (98-107) Carbon Dioxide Level 27 mmol/L (21-32) 24 mmol/L (21-32) 25 mmol/L (21-32) 24 mmol/L (21-32) Anion Gap 11 (6-14) 16 (6-14) 9 (6-14) 10 (6-14) Blood Urea Nitrogen 57 mg/dL (8-26) 59 mg/dL (8-26) 44 mg/dL (8-26) 35 mg/dL (8-26) Creatinine 8.4 mg/dL (0.7-1.3) 8.7 mg/dL (0.7-1.3) 5.9 mg/dL (0.7-1.3) 5.2 mg/dL (0.7-1.3) Estimated GFR (Cockcroft-Gault) 7.5 7.2 11.3 13.1 BUN/Creatinine Ratio 7 (6-20) Glucose Level 80 mg/dL (70-99) 79 mg/dL (70-99) 100 mg/dL (70-99) 98 mg/dL (70-99) Calcium Level 6.7 mg/dL (8.5-10.1) 6.6 mg/dL (8.5-10.1) 7.0 mg/dL (8.5-10.1) 7.3 mg/dL (8.5-10.1) Total Bilirubin 0.5 mg/dL (0.2-1.0) Aspartate Amino Transf (AST/SGOT) 653 U/L (15-37) Alanine Aminotransferase (ALT/SGPT) 307 U/L (16-63) Alkaline Phosphatase 57 U/L (46-116) Creatine Kinase 26195 U/L (39-308) Total Protein 5.0 g/dL (6.4-8.2) Albumin 1.8 g/dL (3.4-5.0) Albumin/Globulin Ratio 0.6 (1.0-1.7) HIV (1&2) Antibody Screen Nonreactive (Nonreactive) Prothrombin Time 14.6 SEC (11.7-14.0) Prothromb Time International Ratio 1.2 (0.8-1.1) Activated Partial Thromboplast Time 35 SEC (24-38) Phosphorus Level 6.6 mg/dL (2.6-4.7) 4.1 mg/dL (2.6-4.7) 3.6 mg/dL (2.6-4.7) Magnesium Level 1.9 mg/dL (1.8-2.4) 2.1 mg/dL (1.8-2.4) Heparin Anti-Xa Act, Unfractionated 0.29 IU/mL (0.30-0.70) 0.34 IU/mL (0.30-0.70) Laboratory Tests Test 09/14/18 12:20 09/15/18 03:00 09/15/18 09:00 White Blood Count 7.1 x10^3/uL (4.0-11.0) 5.9 x10^3/uL (4.0-11.0) 7.9 x10^3/uL (4.0-11.0) Red Blood Count 3.92 x10^6/uL (4.30-5.70) 3.86 x10^6/uL (4.30-5.70) 3.86 x10^6/uL (4.30-5.70) Hemoglobin 11.5 g/dL (13.0-17.5) 11.4 g/dL (13.0-17.5) 11.3 g/dL (13.0-17.5) Hematocrit 32.6 % (39.0-53.0) 31.8 % (39.0-53.0) 32.1 % (39.0-53.0) Mean Corpuscular Volume 83 fL (79-100) 82 fL (79-100) 83 fL (79-100) Mean Corpuscular Hemoglobin 30 pg (25-35) 30 pg (25-35) 29 pg (25-35) Mean Corpuscular Hemoglobin Concent 35 g/dL (31-37) 36 g/dL (31-37) 35 g/dL (31-37) Red Cell Distribution Width 13.2 % (11.5-14.5) 12.9 % (11.5-14.5) 12.9 % (11.5-14.5) Platelet Count 178 x10^3/uL (140-400) 172 x10^3/uL (140-400) 164 x10^3/uL (140-400) Neutrophils (%) (Auto) 84 % (31-73) 76 % (31-73) 88 % (31-73) Lymphocytes (%) (Auto) 10 % (24-48) 16 % (24-48) 6 % (24-48) Monocytes (%) (Auto) 4 % (0-9) 3 % (0-9) 3 % (0-9) Eosinophils (%) (Auto) 2 % (0-3) 4 % (0-3) 2 % (0-3) Basophils (%) (Auto) 0 % (0-3) 1 % (0-3) 1 % (0-3) Neutrophils # (Auto) 6.0 x10^3/uL (1.8-7.7) 4.5 x10^3/uL (1.8-7.7) 7.0 x10^3/uL (1.8-7.7) Lymphocytes # (Auto) 0.7 x10^3/uL (1.0-4.8) 1.0 x10^3/uL (1.0-4.8) 0.5 x10^3/uL (1.0-4.8) Monocytes # (Auto) 0.3 x10^3/uL (0.0-1.1) 0.2 x10^3/uL (0.0-1.1) 0.2 x10^3/uL (0.0-1.1) Eosinophils # (Auto) 0.2 x10^3/uL (0.0-0.7) 0.2 x10^3/uL (0.0-0.7) 0.2 x10^3/uL (0.0-0.7) Basophils # (Auto) 0.0 x10^3/uL (0.0-0.2) 0.0 x10^3/uL (0.0-0.2) 0.0 x10^3/uL (0.0-0.2) Prothrombin Time 14.6 SEC (11.7-14.0) Prothromb Time International Ratio 1.2 (0.8-1.1) Activated Partial Thromboplast Time 35 SEC (24-38) Sodium Level 128 mmol/L (136-145) 130 mmol/L (136-145) 132 mmol/L (136-145) Potassium Level 3.7 mmol/L (3.5-5.1) 3.9 mmol/L (3.5-5.1) 4.1 mmol/L (3.5-5.1) Chloride Level 88 mmol/L (98-107) 96 mmol/L (98-107) 98 mmol/L (98-107) Carbon Dioxide Level 24 mmol/L (21-32) 25 mmol/L (21-32) 24 mmol/L (21-32) Anion Gap 16 (6-14) 9 (6-14) 10 (6-14) Blood Urea Nitrogen 59 mg/dL (8-26) 44 mg/dL (8-26) 35 mg/dL (8-26) Creatinine 8.7 mg/dL (0.7-1.3) 5.9 mg/dL (0.7-1.3) 5.2 mg/dL (0.7-1.3) Estimated GFR (Cockcroft-Gault) 7.2 11.3 13.1 Glucose Level 79 mg/dL (70-99) 100 mg/dL (70-99) 98 mg/dL (70-99) Calcium Level 6.6 mg/dL (8.5-10.1) 7.0 mg/dL (8.5-10.1) 7.3 mg/dL (8.5-10.1) Phosphorus Level 6.6 mg/dL (2.6-4.7) 4.1 mg/dL (2.6-4.7) 3.6 mg/dL (2.6-4.7) Magnesium Level 1.9 mg/dL (1.8-2.4) 2.1 mg/dL (1.8-2.4) Heparin Anti-Xa Act, Unfractionated 0.29 IU/mL (0.30-0.70) 0.34 IU/mL (0.30-0.70) Microbiology 09/12/18 Blood Culture - Preliminary, Resulted NO GROWTH AFTER 3 DAYS 09/12/18 CSF Gram Stain - Final, Complete 09/11/18 Urine Culture - Final, Complete 09/11/18 Urine Culture Result 1 ([place]) - Final, Complete Medications Current Medications Morphine Sulfate (Morphine Sulfate) 4 mg 1X ONCE IV Last administered on 09/11/18at 21:20; Start 09/11/18 at 21:30; Stop 09/11/18 at 21:31; Status DC Sodium Chloride 1,000 ml @ 1,000 mls/hr 1X ONCE IV Last administered on 09/11/18at 22:30; Start 09/11/18 at 22:30; Stop 09/11/18 at 23:29; Status DC Calcium Gluconate (Calcium Gluconate) 1,000 mg 1X ONCE IVP Last administered on 7/9/19at 22:43; Start 09/11/18 at 23:00; Stop 09/11/18 at 23:01; Status DC Insulin Human Regular (HumuLIN R VIAL) 10 unit 1X ONCE IV Last administered on 09/11/18 23:51; Start 09/11/18 at 23:00; Stop 09/11/18 at 23:01; Status DC Dextrose (Dextrose 50%-Water Syringe) 25 gm 1X ONCE IV Last administered on 09/11/18 22:42; Start 09/11/18 at 23:00; Stop 09/11/18 at 23:01; Status DC Sodium Bicarbonate (Sodium Bicarb Adult 8.4% Syr) 50 meq 1X ONCE IV Last administered on 09/11/18 23:49; Start 09/11/18 at 23:00; Stop 09/11/18 at 23:01; Status DC Sodium Chloride 1,000 ml @ 1,000 mls/hr 1X ONCE IV Last administered on 09/11/18at 23:50; Start 09/11/18 at 23:00; Stop 09/11/18 at 23:59; Status DC Albuterol Sulfate (Ventolin Neb Soln) 10 mg 1X ONCE CONT NEB Last administered on 09/12/18at 00:30; Start 09/11/18 at 23:00; Stop 09/11/18 at 23:01; Status DC Ceftriaxone Sodium (Rocephin) 1 gm 1X ONCE IVP Last administered on 09/11/18 22:43; Start 09/11/18 at 23:00; Stop 09/11/18 at 23:01; Status DC Sodium Chloride 1,000 ml @ 1,000 mls/hr 1X ONCE IV Last administered on 09/12/18at 01:00; Start 09/12/18 at 01:00; Stop 09/12/18 at 01:59; Status DC Lorazepam (Ativan Inj) 0.5 mg PRN Q6HRS PRN IV ANXIETY / AGITATION Last administered on 09/12/18at 11:00; Start 09/12/18 at 01:15; Stop 09/13/18 at 08:48; Status DC Ondansetron HCl (Zofran) 4 mg PRN Q6HRS PRN IV NAUSEA/VOMITING 1ST CHOICE; Start 09/12/18 at 01:15; Stop 09/12/18 at 01:22; Status DC Sodium Chloride (Normal Saline Flush) 3 ml QSHIFT PRN IV AFTER MEDS AND BLOOD DRAWS; Start 09/12/18 at 01:15 Sodium Chloride 1,000 ml @ 175 mls/hr Q5H43M IV ; Start 09/12/18 at 01:08; Stop 09/12/18 at 01:23; Status DC Ondansetron HCl (Zofran) 4 mg PRN Q8HRS PRN IV NAUSEA/VOMITING 1ST CHOICE; Start 09/12/18 at 01:15; Stop 09/13/18 at 01:14; Status DC Sodium Chloride 1,000 ml @ 150 mls/hr Q6H40M IV ; Start 09/12/18 at 01:30; Stop 09/12/18 at 18:49; Status DC Morphine Sulfate (Morphine Sulfate) 4 mg PRN Q4HRS PRN IV SEVERE PAIN Last administered on 09/14/18at 23:29; Start 09/12/18 at 09:00 Sodium Bicarbonate (Sodium Bicarb Adult 8.4% Syr) 100 meq 1X ONCE IV Last administered on 09/12/18at 10:02; Start 09/12/18 at 10:00; Stop 09/12/18 at 10:01; Status DC Sodium Chloride 1,000 ml @ 1,000 mls/hr 1X ONCE IV Last administered on 09/12/18at 09:56; Start 09/12/18 at 10:00; Stop 09/12/18 at 10:59; Status DC Lidocaine/Sodium Bicarbonate (Buffered Lidocaine 1%) 3 ml STK-MED ONCE .ROUTE ; Start 09/12/18 at 11:07; Stop 09/12/18 at 11:08; Status DC Calcium Gluconate (Calcium Gluconate) 2,000 mg 1X ONCE IVP Last administered on 09/12/18at 13:38; Start 09/12/18 at 12:00; Stop 09/12/18 at 12:01; Status DC Ceftriaxone Sodium (Rocephin) 1 gm Q24H IVP Last administered on 09/12/18at 12:49; Start 09/12/18 at 13:00; Stop 09/13/18 at 07:45; Status DC Silver Sulfadiazine (Silvadene) 1 elinor BID TP Last administered on 09/13/18at 10:06; Start 09/12/18 at 13:00; Stop 09/13/18 at 15:04; Status DC Sodium Chloride 1,000 ml @ 1,000 mls/hr 1X ONCE IV Last administered on 09/12/18at 12:47; Start 09/12/18 at 12:45; Stop 09/12/18 at 13:44; Status DC Pantoprazole Sodium (Protonix) 40 mg DAILYAC PO ; Start 09/12/18 at 13:30; Stop 09/12/18 at 19:22; Status DC Polyethylene Glycol (miraLAX PACKET) 17 gm DAILY PO Last administered on 09/15/18at 09:05; Start 09/12/18 at 13:30 Lidocaine/Sodium Bicarbonate (Buffered Lidocaine 1%) 3 ml STK-MED ONCE .ROUTE ; Start 09/12/18 at 13:48; Stop 09/12/18 at 13:49; Status DC Haloperidol Lactate (Haldol Inj) 1 mg PRN Q8HRS PRN IVP AGITATION Last administered on 09/14/18at 07:56; Start 09/12/18 at 14:00 Lorazepam (Ativan Inj) 2 mg PRN Q2HRS PRN IV ANXIETY. Last administered on 09/15/18at 03:33; Start 09/12/18 at 14:00 Lidocaine/Sodium Bicarbonate (Buffered Lidocaine 1%) 6 ml 1X ONCE INJ ; Start 09/12/18 at 14:15; Stop 09/12/18 at 14:16; Status DC Dexmedetomidine HCl 200 mcg/ Sodium Chloride 50 ml @ 0 mls/hr CONT PRN IV PER PROTOCOL Last administered on 09/15/18at 06:24; Start 09/12/18 at 14:15 Sodium Chloride 500 ml @ 500 mls/hr 1X PRN PRN IV SEE COMMENTS; Start 09/12/18 at 14:15 Atropine Sulfate (ATROPINE 0.5mg SYRINGE) 0.5 mg PRN Q5MIN PRN IV SEE COMMENTS; Start 09/12/18 at 14:15 Sodium Chloride 1,000 ml @ 1,000 mls/hr Q1H PRN IV hypotension; Start 09/12/18 at 15:08; Stop 09/12/18 at 21:07; Status DC Diphenhydramine HCl (Benadryl) 25 mg 1X PRN PRN IV ITCHING; Start 09/12/18 at 15:15; Stop 09/13/18 at 11:19; Status DC Diphenhydramine HCl (Benadryl) 25 mg 1X PRN PRN IV ITCHING; Start 09/12/18 at 15:15; Stop 09/13/18 at 11:19; Status DC Sodium Chloride 1,000 ml @ 400 mls/hr Q2H30M PRN IV PATENCY; Start 09/12/18 at 15:08; Stop 09/13/18 at 03:07; Status DC Info (PHARMACY MONITORING -- do not chart) 1 each PRN DAILY PRN MC SEE COMMENTS; Start 09/12/18 at 15:15; Stop 09/13/18 at 11:18; Status DC Pantoprazole Sodium (PROTONIX VIAL for IV PUSH) 40 mg DAILYAC IVP Last administered on 09/15/18at 09:05; Start 09/13/18 at 07:30 Linezolid (Zyvox) 600 mg BID PO Last administered on 09/15/18at 09:05; Start 09/13/18 at 09:00 Ceftriaxone Sodium (Rocephin) 2 gm Q24H IVP Last administered on 09/14/18at 13:49; Start 09/13/18 at 13:00 Calcium Gluconate 2000 mg/Dextrose 120 ml @ 220 mls/hr 1X ONCE IV Last administered on 09/13/18at 10:05; Start 09/13/18 at 10:00; Stop 09/13/18 at 10:32; Status DC Sodium Chloride 1,000 ml @ 1,000 mls/hr Q1H PRN IV hypotension; Start 09/13/18 at 11:06; Stop 09/13/18 at 17:05; Status DC Diphenhydramine HCl (Benadryl) 25 mg 1X PRN PRN IV ITCHING; Start 09/13/18 at 11:15; Stop 09/14/18 at 11:14; Status DC Diphenhydramine HCl (Benadryl) 25 mg 1X PRN PRN IV ITCHING; Start 09/13/18 at 11:15; Stop 09/14/18 at 11:14; Status DC Sodium Chloride 1,000 ml @ 400 mls/hr Q2H30M PRN IV PATENCY; Start 09/13/18 at 11:06; Stop 09/13/18 at 23:05; Status DC Info (PHARMACY MONITORING -- do not chart) 1 each PRN DAILY PRN MC SEE COMMENTS; Start 09/13/18 at 11:15 Potassium Chloride 10 meq/ Calcium Chloride 12.5 meq/ Bicarbonate Dialysis Soln w/ out KCl 5,013.9286 ml @ 1,000 mls/hr Q5H1M IV ; Start 09/14/18 at 13:00; Status Cancel Potassium Chloride 20 meq/ Calcium Chloride 12.5 meq/ Bicarbonate Dialysis Soln w/ out KCl 5,018.9286 ml @ 1,500 mls/hr Q3H21M IV ; Start 09/14/18 at 13:00; Stop 09/14/18 at 13:00; Status DC Heparin Sodium (Porcine) (Heparin Sodium) 4,000 unit 1X ONCE IV Last administered on 09/14/18at 19:54; Start 09/14/18 at 12:00; Stop 09/14/18 at 12:11; Status DC Heparin Sodium/ Dextrose 500 ml @ 0 mls/hr CONT PRN IV SEE I/O RECORD Last administered on 09/14/18at 20:20; Start 09/14/18 at 12:00 Heparin Sodium (Porcine) (Heparin Sodium) 2,500 unit PRN Q6HRS PRN IV FOR UFH LEVEL LESS THAN 0.2; Start 09/14/18 at 12:00 Potassium Chloride 10 meq/ Calcium Chloride 12.5 meq/ Bicarbonate Dialysis Soln w/ out KCl 5,013.9286 ml @ 1,000 mls/hr Q5H1M IV ; Start 09/14/18 at 13:00; Stop 09/14/18 at 13:00; Status DC Potassium Chloride 10 meq/ Bicarbonate Dialysis Soln w/ out KCl 5,005 ml @ 1,000 mls/hr Q5H1M IV ; Start 09/14/18 at 13:00; Stop 09/14/18 at 13:00; Status DC Potassium Chloride 20 meq/ Bicarbonate Dialysis Soln w/ out KCl 5,010 ml @ 1,500 mls/hr Q3H21M IV ; Start 09/14/18 at 13:00; Stop 09/14/18 at 13:00; Status DC Potassium Chloride 10 meq/ Bicarbonate Dialysis Soln w/ out KCl 5,005 ml @ 1,500 mls/hr Q3H21M IV ; Start 09/14/18 at 13:00; Stop 09/14/18 at 13:00; Status DC Potassium Chloride 20 meq/ Bicarbonate Dialysis Soln w/ out KCl 5,010 ml @ 1,000 mls/hr Q5H1M IV Last administered on 09/15/18at 07:55; Start 09/14/18 at 13:00 Potassium Chloride 20 meq/ Bicarbonate Dialysis Soln w/ out KCl 5,010 ml @ 1,500 mls/hr Q3H21M IV ; Start 09/14/18 at 12:45; Stop 09/14/18 at 12:45; Status DC Potassium Chloride 40 meq/ Bicarbonate Dialysis Soln w/ out KCl 5,020 ml @ 1,500 mls/hr Q3H21M IV ; Start 09/14/18 at 13:00; Stop 09/14/18 at 13:10; Status DC Potassium Chloride 60 meq/ Bicarbonate Dialysis Soln w/ out KCl 5,030 ml @ 1,500 mls/hr Q3H22M IV ; Start 09/14/18 at 13:00; Stop 09/14/18 at 13:07; Status DC Potassium Chloride 30 meq/ Bicarbonate Dialysis Soln w/ out KCl 5,015 ml @ 1,500 mls/hr Q3H21M IV ; Start 09/14/18 at 13:15; Stop 09/14/18 at 18:00; Status DC Potassium Chloride 20 meq/ Bicarbonate Dialysis Soln w/ out KCl 5,010 ml @ 1,500 mls/hr Q3H21M IV Last administered on 09/14/18at 21:06; Start 09/14/18 at 13:10; Stop 09/14/18 at 18:00; Status DC Potassium Chloride 30 meq/ Bicarbonate Dialysis Soln w/ out KCl 5,015 ml @ 1,500 mls/hr Q3H21M IV ; Start 09/14/18 at 18:00; Stop 09/14/18 at 19:10; Status DC Potassium Chloride 20 meq/ Bicarbonate Dialysis Soln w/ out KCl 5,010 ml @ 1,500 mls/hr Q3H21M IV Last administered on 09/15/18at 07:55; Start 09/14/18 at 18:01 Potassium Chloride 20 meq/ Bicarbonate Dialysis Soln w/ out KCl 5,010 ml @ 1,500 mls/hr Q3H21M IV Last administered on 09/15/18at 07:56; Start 09/14/18 at 20:00 Active Scripts Active Reported Protonix (Pantoprazole Sodium) 20 Mg Tablet.dr 2 Tab PO DAILY Zyprexa (Olanzapine) 20 Mg Tablet 2 Tab PO QHS Buspirone Hcl 30 Mg Tablet 1 Tab PO BID Vitals/I & O Vital Sign - Last 24 Hours 09/14/18 09/14/18 09/14/18 09/14/18 11:00 12:00 12:00 13:00 Temp 97.8 97.8 Pulse 85 85 89 Resp 14 14 18 B/P (MAP) 137/70 (92) 111/54 (73) 123/65 (84) Pulse Ox 96 96 95 O2 Delivery Room Air Room Air Room Air Room Air 09/14/18 09/14/18 09/14/18 09/14/18 13:57 14:00 15:00 16:00 Temp 98.0 98.0 Pulse 107 98 90 Resp 15 22 17 13 B/P (MAP) 127/80 (96) 134/68 (90) 127/84 (98) Pulse Ox 96 97 95 94 O2 Delivery Room Air Room Air Room Air Room Air 09/14/18 09/14/18 09/14/18 09/14/18 16:00 17:00 18:00 19:00 Pulse 95 101 92 Resp 16 13 14 B/P (MAP) 140/69 (92) 136/72 (93) 145/76 (99) Pulse Ox 95 97 96 O2 Delivery Room Air Room Air Room Air 09/14/18 09/14/18 09/14/18 09/14/18 20:00 20:00 21:00 22:00 Pulse 100 92 100 Resp 16 13 22 B/P (MAP) 135/72 (93) 134/62 (86) 134/62 (86) Pulse Ox 96 97 90 O2 Delivery Room Air Room Air 09/14/18 09/14/18 09/15/18 09/15/18 23:00 23:29 00:00 00:00 Pulse 85 Resp 13 B/P (MAP) 140/65 (90) Pulse Ox 95 94 94 O2 Delivery Room Air Room Air Room Air Room Air O2 Flow Rate 98.0 09/15/18 09/15/18 09/15/18 09/15/18 00:00 01:00 02:00 03:00 Temp 98.0 98.0 Pulse 78 79 78 76 Resp 16 13 13 15 B/P (MAP) 140/74 (96) 145/71 (95) 136/70 (92) 144/80 (101) Pulse Ox 96 97 97 96 O2 Delivery Room Air Room Air Room Air Room Air 09/15/18 09/15/18 09/15/18 09/15/18 04:00 04:00 05:00 06:00 Temp 97.8 97.8 Pulse 75 95 74 Resp 16 16 13 B/P (MAP) 138/84 (102) 155/82 (106) 117/75 (89) Pulse Ox 96 97 98 O2 Delivery Room Air Room Air Room Air Room Air 09/15/18 09/15/18 09/15/18 09/15/18 07:00 08:00 08:00 09:00 Temp 96.8 96.8 Pulse 91 77 91 Resp 15 18 B/P (MAP) 135/73 (93) 145/81 (102) 149/75 (99) Pulse Ox 97 96 98 O2 Delivery Room Air Room Air Room Air Room Air Intake and Output 09/14/18 09/14/18 09/15/18 15:00 23:00 07:00 Intake Total 1080 ml 667 ml 71829.6 ml Output Total 0 ml 15 ml 8 ml Balance 1080 ml 652 ml 70197.6 ml MARIAM SINGH MD Sep 15, 2018 10:03
--- NOTE | 2018-09-15 10:40 | NUR ---
Pt reconnected to CRRT at 1040. System changed. Same settings.
--- NOTE | 2018-09-15 10:41 | PDOC ---
G I PROGRESS NOTE Subjective Sleeping/not responsive to exam. Objective Staff report no GI issues. Physical Exam Lungs clear RRR Abdomen soft, not distended. Review of Relevant I have reviewed the following items ashlie (where applicable) has been applied. Labs Laboratory Tests Test 09/14/18 06:30 09/14/18 12:20 09/15/18 03:00 09/15/18 09:00 White Blood Count 6.5 x10^3/uL (4.0-11.0) 7.1 x10^3/uL (4.0-11.0) 5.9 x10^3/uL (4.0-11.0) 7.9 x10^3/uL (4.0-11.0) Red Blood Count 3.91 x10^6/uL (4.30-5.70) 3.92 x10^6/uL (4.30-5.70) 3.86 x10^6/uL (4.30-5.70) 3.86 x10^6/uL (4.30-5.70) Hemoglobin 11.4 g/dL (13.0-17.5) 11.5 g/dL (13.0-17.5) 11.4 g/dL (13.0-17.5) 11.3 g/dL (13.0-17.5) Hematocrit 32.6 % (39.0-53.0) 32.6 % (39.0-53.0) 31.8 % (39.0-53.0) 32.1 % (39.0-53.0) Mean Corpuscular Volume 83 fL (79-100) 83 fL (79-100) 82 fL (79-100) 83 fL (79-100) Mean Corpuscular Hemoglobin 29 pg (25-35) 30 pg (25-35) 30 pg (25-35) 29 pg (25-35) Mean Corpuscular Hemoglobin Concent 35 g/dL (31-37) 35 g/dL (31-37) 36 g/dL (31-37) 35 g/dL (31-37) Red Cell Distribution Width 12.9 % (11.5-14.5) 13.2 % (11.5-14.5) 12.9 % (11.5-14.5) 12.9 % (11.5-14.5) Platelet Count 166 x10^3/uL (140-400) 178 x10^3/uL (140-400) 172 x10^3/uL (140-400) 164 x10^3/uL (140-400) Neutrophils (%) (Auto) 76 % (31-73) 84 % (31-73) 76 % (31-73) 88 % (31-73) Lymphocytes (%) (Auto) 15 % (24-48) 10 % (24-48) 16 % (24-48) 6 % (24-48) Monocytes (%) (Auto) 5 % (0-9) 4 % (0-9) 3 % (0-9) 3 % (0-9) Eosinophils (%) (Auto) 3 % (0-3) 2 % (0-3) 4 % (0-3) 2 % (0-3) Basophils (%) (Auto) 1 % (0-3) 0 % (0-3) 1 % (0-3) 1 % (0-3) Neutrophils # (Auto) 4.9 x10^3/uL (1.8-7.7) 6.0 x10^3/uL (1.8-7.7) 4.5 x10^3/uL (1.8-7.7) 7.0 x10^3/uL (1.8-7.7) Lymphocytes # (Auto) 1.0 x10^3/uL (1.0-4.8) 0.7 x10^3/uL (1.0-4.8) 1.0 x10^3/uL (1.0-4.8) 0.5 x10^3/uL (1.0-4.8) Monocytes # (Auto) 0.3 x10^3/uL (0.0-1.1) 0.3 x10^3/uL (0.0-1.1) 0.2 x10^3/uL (0.0-1.1) 0.2 x10^3/uL (0.0-1.1) Eosinophils # (Auto) 0.2 x10^3/uL (0.0-0.7) 0.2 x10^3/uL (0.0-0.7) 0.2 x10^3/uL (0.0-0.7) 0.2 x10^3/uL (0.0-0.7) Basophils # (Auto) 0.0 x10^3/uL (0.0-0.2) 0.0 x10^3/uL (0.0-0.2) 0.0 x10^3/uL (0.0-0.2) 0.0 x10^3/uL (0.0-0.2) Sodium Level 129 mmol/L (136-145) 128 mmol/L (136-145) 130 mmol/L (136-145) 132 mmol/L (136-145) Potassium Level 3.5 mmol/L (3.5-5.1) 3.7 mmol/L (3.5-5.1) 3.9 mmol/L (3.5-5.1) 4.1 mmol/L (3.5-5.1) Chloride Level 91 mmol/L (98-107) 88 mmol/L (98-107) 96 mmol/L (98-107) 98 mmol/L (98-107) Carbon Dioxide Level 27 mmol/L (21-32) 24 mmol/L (21-32) 25 mmol/L (21-32) 24 mmol/L (21-32) Anion Gap 11 (6-14) 16 (6-14) 9 (6-14) 10 (6-14) Blood Urea Nitrogen 57 mg/dL (8-26) 59 mg/dL (8-26) 44 mg/dL (8-26) 35 mg/dL (8-26) Creatinine 8.4 mg/dL (0.7-1.3) 8.7 mg/dL (0.7-1.3) 5.9 mg/dL (0.7-1.3) 5.2 mg/dL (0.7-1.3) Estimated GFR (Cockcroft-Gault) 7.5 7.2 11.3 13.1 BUN/Creatinine Ratio 7 (6-20) Glucose Level 80 mg/dL (70-99) 79 mg/dL (70-99) 100 mg/dL (70-99) 98 mg/dL (70-99) Calcium Level 6.7 mg/dL (8.5-10.1) 6.6 mg/dL (8.5-10.1) 7.0 mg/dL (8.5-10.1) 7.3 mg/dL (8.5-10.1) Total Bilirubin 0.5 mg/dL (0.2-1.0) Aspartate Amino Transf (AST/SGOT) 653 U/L (15-37) Alanine Aminotransferase (ALT/SGPT) 307 U/L (16-63) Alkaline Phosphatase 57 U/L (46-116) Creatine Kinase 42094 U/L (39-308) Total Protein 5.0 g/dL (6.4-8.2) Albumin 1.8 g/dL (3.4-5.0) Albumin/Globulin Ratio 0.6 (1.0-1.7) HIV (1&2) Antibody Screen Nonreactive (Nonreactive) Prothrombin Time 14.6 SEC (11.7-14.0) Prothromb Time International Ratio 1.2 (0.8-1.1) Activated Partial Thromboplast Time 35 SEC (24-38) Phosphorus Level 6.6 mg/dL (2.6-4.7) 4.1 mg/dL (2.6-4.7) 3.6 mg/dL (2.6-4.7) Magnesium Level 1.9 mg/dL (1.8-2.4) 2.1 mg/dL (1.8-2.4) Heparin Anti-Xa Act, Unfractionated 0.29 IU/mL (0.30-0.70) 0.34 IU/mL (0.30-0.70) Laboratory Tests Test 09/14/18 12:20 09/15/18 03:00 09/15/18 09:00 White Blood Count 7.1 x10^3/uL (4.0-11.0) 5.9 x10^3/uL (4.0-11.0) 7.9 x10^3/uL (4.0-11.0) Red Blood Count 3.92 x10^6/uL (4.30-5.70) 3.86 x10^6/uL (4.30-5.70) 3.86 x10^6/uL (4.30-5.70) Hemoglobin 11.5 g/dL (13.0-17.5) 11.4 g/dL (13.0-17.5) 11.3 g/dL (13.0-17.5) Hematocrit 32.6 % (39.0-53.0) 31.8 % (39.0-53.0) 32.1 % (39.0-53.0) Mean Corpuscular Volume 83 fL (79-100) 82 fL (79-100) 83 fL (79-100) Mean Corpuscular Hemoglobin 30 pg (25-35) 30 pg (25-35) 29 pg (25-35) Mean Corpuscular Hemoglobin Concent 35 g/dL (31-37) 36 g/dL (31-37) 35 g/dL (31-37) Red Cell Distribution Width 13.2 % (11.5-14.5) 12.9 % (11.5-14.5) 12.9 % (11.5-14.5) Platelet Count 178 x10^3/uL (140-400) 172 x10^3/uL (140-400) 164 x10^3/uL (140-400) Neutrophils (%) (Auto) 84 % (31-73) 76 % (31-73) 88 % (31-73) Lymphocytes (%) (Auto) 10 % (24-48) 16 % (24-48) 6 % (24-48) Monocytes (%) (Auto) 4 % (0-9) 3 % (0-9) 3 % (0-9) Eosinophils (%) (Auto) 2 % (0-3) 4 % (0-3) 2 % (0-3) Basophils (%) (Auto) 0 % (0-3) 1 % (0-3) 1 % (0-3) Neutrophils # (Auto) 6.0 x10^3/uL (1.8-7.7) 4.5 x10^3/uL (1.8-7.7) 7.0 x10^3/uL (1.8-7.7) Lymphocytes # (Auto) 0.7 x10^3/uL (1.0-4.8) 1.0 x10^3/uL (1.0-4.8) 0.5 x10^3/uL (1.0-4.8) Monocytes # (Auto) 0.3 x10^3/uL (0.0-1.1) 0.2 x10^3/uL (0.0-1.1) 0.2 x10^3/uL (0.0-1.1) Eosinophils # (Auto) 0.2 x10^3/uL (0.0-0.7) 0.2 x10^3/uL (0.0-0.7) 0.2 x10^3/uL (0.0-0.7) Basophils # (Auto) 0.0 x10^3/uL (0.0-0.2) 0.0 x10^3/uL (0.0-0.2) 0.0 x10^3/uL (0.0-0.2) Prothrombin Time 14.6 SEC (11.7-14.0) Prothromb Time International Ratio 1.2 (0.8-1.1) Activated Partial Thromboplast Time 35 SEC (24-38) Sodium Level 128 mmol/L (136-145) 130 mmol/L (136-145) 132 mmol/L (136-145) Potassium Level 3.7 mmol/L (3.5-5.1) 3.9 mmol/L (3.5-5.1) 4.1 mmol/L (3.5-5.1) Chloride Level 88 mmol/L (98-107) 96 mmol/L (98-107) 98 mmol/L (98-107) Carbon Dioxide Level 24 mmol/L (21-32) 25 mmol/L (21-32) 24 mmol/L (21-32) Anion Gap 16 (6-14) 9 (6-14) 10 (6-14) Blood Urea Nitrogen 59 mg/dL (8-26) 44 mg/dL (8-26) 35 mg/dL (8-26) Creatinine 8.7 mg/dL (0.7-1.3) 5.9 mg/dL (0.7-1.3) 5.2 mg/dL (0.7-1.3) Estimated GFR (Cockcroft-Gault) 7.2 11.3 13.1 Glucose Level 79 mg/dL (70-99) 100 mg/dL (70-99) 98 mg/dL (70-99) Calcium Level 6.6 mg/dL (8.5-10.1) 7.0 mg/dL (8.5-10.1) 7.3 mg/dL (8.5-10.1) Phosphorus Level 6.6 mg/dL (2.6-4.7) 4.1 mg/dL (2.6-4.7) 3.6 mg/dL (2.6-4.7) Magnesium Level 1.9 mg/dL (1.8-2.4) 2.1 mg/dL (1.8-2.4) Heparin Anti-Xa Act, Unfractionated 0.29 IU/mL (0.30-0.70) 0.34 IU/mL (0.30-0.70) Microbiology 09/12/18 Blood Culture - Preliminary, Resulted NO GROWTH AFTER 3 DAYS 09/12/18 CSF Gram Stain - Final, Complete 09/11/18 Urine Culture - Final, Complete 09/11/18 Urine Culture Result 1 ([place]) - Final, Complete Vitals/I & O Vital Sign - Last 24 Hours 09/14/18 09/14/18 09/14/18 09/14/18 11:00 12:00 12:00 13:00 Temp 97.8 97.8 Pulse 85 85 89 Resp 14 14 18 B/P (MAP) 137/70 (92) 111/54 (73) 123/65 (84) Pulse Ox 96 96 95 O2 Delivery Room Air Room Air Room Air Room Air 09/14/18 09/14/18 09/14/18 09/14/18 13:57 14:00 15:00 16:00 Temp 98.0 98.0 Pulse 107 98 90 Resp 15 22 17 13 B/P (MAP) 127/80 (96) 134/68 (90) 127/84 (98) Pulse Ox 96 97 95 94 O2 Delivery Room Air Room Air Room Air Room Air 09/14/18 09/14/18 09/14/18 09/14/18 16:00 17:00 18:00 19:00 Pulse 95 101 92 Resp 16 13 14 B/P (MAP) 140/69 (92) 136/72 (93) 145/76 (99) Pulse Ox 95 97 96 O2 Delivery Room Air Room Air Room Air 09/14/18 09/14/18 09/14/18 09/14/18 20:00 20:00 21:00 22:00 Pulse 100 92 100 Resp 16 13 22 B/P (MAP) 135/72 (93) 134/62 (86) 134/62 (86) Pulse Ox 96 97 90 O2 Delivery Room Air Room Air 09/14/18 09/14/18 09/15/18 09/15/18 23:00 23:29 00:00 00:00 Pulse 85 Resp 13 B/P (MAP) 140/65 (90) Pulse Ox 95 94 94 O2 Delivery Room Air Room Air Room Air Room Air O2 Flow Rate 98.0 09/15/18 09/15/18 09/15/18 09/15/18 00:00 01:00 02:00 03:00 Temp 98.0 98.0 Pulse 78 79 78 76 Resp 16 13 13 15 B/P (MAP) 140/74 (96) 145/71 (95) 136/70 (92) 144/80 (101) Pulse Ox 96 97 97 96 O2 Delivery Room Air Room Air Room Air Room Air 09/15/18 09/15/18 09/15/18 09/15/18 04:00 04:00 05:00 06:00 Temp 97.8 97.8 Pulse 75 95 74 Resp 16 16 13 B/P (MAP) 138/84 (102) 155/82 (106) 117/75 (89) Pulse Ox 96 97 98 O2 Delivery Room Air Room Air Room Air Room Air 09/15/18 09/15/18 09/15/18 09/15/18 07:00 08:00 08:00 09:00 Temp 96.8 96.8 Pulse 91 77 91 Resp 13 15 18 B/P (MAP) 135/73 (93) 145/81 (102) 149/75 (99) Pulse Ox 97 96 98 O2 Delivery Room Air Room Air Room Air Room Air 09/15/18 10:00 Pulse 86 Resp 16 B/P (MAP) 148/82 (104) Pulse Ox 97 O2 Delivery Room Air Intake and Output 09/14/18 09/14/18 09/15/18 15:00 23:00 07:00 Intake Total 1080 ml 667 ml 97432.6 ml Output Total 0 ml 15 ml 8 ml Balance 1080 ml 652 ml 81042.6 ml Problem List Problems Medical Problems: (1) Elevated troponin Status: Acute (2) Hepatorenal syndrome Status: Acute (3) Hyperkalemia Status: Acute (4) Hyponatremia Status: Acute (5) Methamphetamine abuse Status: Acute (6) Neurological complaint Status: Acute (7) Rhabdomyolysis Status: Acute (8) Urinary retention Status: Acute (9) Urinary tract infection Status: Acute Assessment Transaminitis, improving. Suspect much from rhabdomyolysis. Negative HCV PCR. No viral hepatitis issues. Plan of Care Note Continue as now. Tube feeding? EMERY CHANEY MD Sep 15, 2018 10:41
--- NOTE | 2018-09-15 11:34 | PDOC ---
Dialysis Progress Note Dialysis Note Dialysis Note Seen on CRRT tolerating treatment well General Appearance: Awake: Alert Oriented x 3 Neck: No JVD or JVP Chest: CTA Ananda Heart: S1 S2 Abdomen - Soft NTND Extremities - No Edema CARO/ ATN: Rhabdo - will transition from CRRT to HD once CRRT Clots Vitals Vital Signs Vital Signs Date Time Temp Pulse Resp B/P (MAP) Pulse Ox O2 Delivery O2 Flow Rate FiO2 09/15/18 11:00 105 19 148/80 (102) 97 Room Air 09/15/18 08:00 96.8 96.8 09/15/18 00:00 98.0 Labs Last Labs Laboratory Tests Test 09/14/18 06:30 09/14/18 12:20 09/15/18 03:00 09/15/18 09:00 White Blood Count 6.5 x10^3/uL (4.0-11.0) 7.1 x10^3/uL (4.0-11.0) 5.9 x10^3/uL (4.0-11.0) 7.9 x10^3/uL (4.0-11.0) Red Blood Count 3.91 x10^6/uL (4.30-5.70) 3.92 x10^6/uL (4.30-5.70) 3.86 x10^6/uL (4.30-5.70) 3.86 x10^6/uL (4.30-5.70) Hemoglobin 11.4 g/dL (13.0-17.5) 11.5 g/dL (13.0-17.5) 11.4 g/dL (13.0-17.5) 11.3 g/dL (13.0-17.5) Hematocrit 32.6 % (39.0-53.0) 32.6 % (39.0-53.0) 31.8 % (39.0-53.0) 32.1 % (39.0-53.0) Mean Corpuscular Volume 83 fL (79-100) 83 fL (79-100) 82 fL (79-100) 83 fL (79-100) Mean Corpuscular Hemoglobin 29 pg (25-35) 30 pg (25-35) 30 pg (25-35) 29 pg (25-35) Mean Corpuscular Hemoglobin Concent 35 g/dL (31-37) 35 g/dL (31-37) 36 g/dL (31-37) 35 g/dL (31-37) Red Cell Distribution Width 12.9 % (11.5-14.5) 13.2 % (11.5-14.5) 12.9 % (11.5-14.5) 12.9 % (11.5-14.5) Platelet Count 166 x10^3/uL (140-400) 178 x10^3/uL (140-400) 172 x10^3/uL (140-400) 164 x10^3/uL (140-400) Neutrophils (%) (Auto) 76 % (31-73) 84 % (31-73) 76 % (31-73) 88 % (31-73) Lymphocytes (%) (Auto) 15 % (24-48) 10 % (24-48) 16 % (24-48) 6 % (24-48) Monocytes (%) (Auto) 5 % (0-9) 4 % (0-9) 3 % (0-9) 3 % (0-9) Eosinophils (%) (Auto) 3 % (0-3) 2 % (0-3) 4 % (0-3) 2 % (0-3) Basophils (%) (Auto) 1 % (0-3) 0 % (0-3) 1 % (0-3) 1 % (0-3) Neutrophils # (Auto) 4.9 x10^3/uL (1.8-7.7) 6.0 x10^3/uL (1.8-7.7) 4.5 x10^3/uL (1.8-7.7) 7.0 x10^3/uL (1.8-7.7) Lymphocytes # (Auto) 1.0 x10^3/uL (1.0-4.8) 0.7 x10^3/uL (1.0-4.8) 1.0 x10^3/uL (1.0-4.8) 0.5 x10^3/uL (1.0-4.8) Monocytes # (Auto) 0.3 x10^3/uL (0.0-1.1) 0.3 x10^3/uL (0.0-1.1) 0.2 x10^3/uL (0.0-1.1) 0.2 x10^3/uL (0.0-1.1) Eosinophils # (Auto) 0.2 x10^3/uL (0.0-0.7) 0.2 x10^3/uL (0.0-0.7) 0.2 x10^3/uL (0.0-0.7) 0.2 x10^3/uL (0.0-0.7) Basophils # (Auto) 0.0 x10^3/uL (0.0-0.2) 0.0 x10^3/uL (0.0-0.2) 0.0 x10^3/uL (0.0-0.2) 0.0 x10^3/uL (0.0-0.2) Sodium Level 129 mmol/L (136-145) 128 mmol/L (136-145) 130 mmol/L (136-145) 132 mmol/L (136-145) Potassium Level 3.5 mmol/L (3.5-5.1) 3.7 mmol/L (3.5-5.1) 3.9 mmol/L (3.5-5.1) 4.1 mmol/L (3.5-5.1) Chloride Level 91 mmol/L (98-107) 88 mmol/L (98-107) 96 mmol/L (98-107) 98 mmol/L (98-107) Carbon Dioxide Level 27 mmol/L (21-32) 24 mmol/L (21-32) 25 mmol/L (21-32) 24 mmol/L (21-32) Anion Gap 11 (6-14) 16 (6-14) 9 (6-14) 10 (6-14) Blood Urea Nitrogen 57 mg/dL (8-26) 59 mg/dL (8-26) 44 mg/dL (8-26) 35 mg/dL (8-26) Creatinine 8.4 mg/dL (0.7-1.3) 8.7 mg/dL (0.7-1.3) 5.9 mg/dL (0.7-1.3) 5.2 mg/dL (0.7-1.3) Estimated GFR (Cockcroft-Gault) 7.5 7.2 11.3 13.1 BUN/Creatinine Ratio 7 (6-20) Glucose Level 80 mg/dL (70-99) 79 mg/dL (70-99) 100 mg/dL (70-99) 98 mg/dL (70-99) Calcium Level 6.7 mg/dL (8.5-10.1) 6.6 mg/dL (8.5-10.1) 7.0 mg/dL (8.5-10.1) 7.3 mg/dL (8.5-10.1) Total Bilirubin 0.5 mg/dL (0.2-1.0) Aspartate Amino Transf (AST/SGOT) 653 U/L (15-37) Alanine Aminotransferase (ALT/SGPT) 307 U/L (16-63) Alkaline Phosphatase 57 U/L (46-116) Creatine Kinase 77104 U/L (39-308) Total Protein 5.0 g/dL (6.4-8.2) Albumin 1.8 g/dL (3.4-5.0) Albumin/Globulin Ratio 0.6 (1.0-1.7) HIV (1&2) Antibody Screen Nonreactive (Nonreactive) Prothrombin Time 14.6 SEC (11.7-14.0) Prothromb Time International Ratio 1.2 (0.8-1.1) Activated Partial Thromboplast Time 35 SEC (24-38) Phosphorus Level 6.6 mg/dL (2.6-4.7) 4.1 mg/dL (2.6-4.7) 3.6 mg/dL (2.6-4.7) Magnesium Level 1.9 mg/dL (1.8-2.4) 2.1 mg/dL (1.8-2.4) Heparin Anti-Xa Act, Unfractionated 0.29 IU/mL (0.30-0.70) 0.34 IU/mL (0.30-0.70) Laboratory Tests Test 09/14/18 12:20 09/15/18 03:00 09/15/18 09:00 White Blood Count 7.1 x10^3/uL (4.0-11.0) 5.9 x10^3/uL (4.0-11.0) 7.9 x10^3/uL (4.0-11.0) Red Blood Count 3.92 x10^6/uL (4.30-5.70) 3.86 x10^6/uL (4.30-5.70) 3.86 x10^6/uL (4.30-5.70) Hemoglobin 11.5 g/dL (13.0-17.5) 11.4 g/dL (13.0-17.5) 11.3 g/dL (13.0-17.5) Hematocrit 32.6 % (39.0-53.0) 31.8 % (39.0-53.0) 32.1 % (39.0-53.0) Mean Corpuscular Volume 83 fL (79-100) 82 fL (79-100) 83 fL (79-100) Mean Corpuscular Hemoglobin 30 pg (25-35) 30 pg (25-35) 29 pg (25-35) Mean Corpuscular Hemoglobin Concent 35 g/dL (31-37) 36 g/dL (31-37) 35 g/dL (31-37) Red Cell Distribution Width 13.2 % (11.5-14.5) 12.9 % (11.5-14.5) 12.9 % (11.5-14.5) Platelet Count 178 x10^3/uL (140-400) 172 x10^3/uL (140-400) 164 x10^3/uL (140-400) Neutrophils (%) (Auto) 84 % (31-73) 76 % (31-73) 88 % (31-73) Lymphocytes (%) (Auto) 10 % (24-48) 16 % (24-48) 6 % (24-48) Monocytes (%) (Auto) 4 % (0-9) 3 % (0-9) 3 % (0-9) Eosinophils (%) (Auto) 2 % (0-3) 4 % (0-3) 2 % (0-3) Basophils (%) (Auto) 0 % (0-3) 1 % (0-3) 1 % (0-3) Neutrophils # (Auto) 6.0 x10^3/uL (1.8-7.7) 4.5 x10^3/uL (1.8-7.7) 7.0 x10^3/uL (1.8-7.7) Lymphocytes # (Auto) 0.7 x10^3/uL (1.0-4.8) 1.0 x10^3/uL (1.0-4.8) 0.5 x10^3/uL (1.0-4.8) Monocytes # (Auto) 0.3 x10^3/uL (0.0-1.1) 0.2 x10^3/uL (0.0-1.1) 0.2 x10^3/uL (0.0-1.1) Eosinophils # (Auto) 0.2 x10^3/uL (0.0-0.7) 0.2 x10^3/uL (0.0-0.7) 0.2 x10^3/uL (0.0-0.7) Basophils # (Auto) 0.0 x10^3/uL (0.0-0.2) 0.0 x10^3/uL (0.0-0.2) 0.0 x10^3/uL (0.0-0.2) Prothrombin Time 14.6 SEC (11.7-14.0) Prothromb Time International Ratio 1.2 (0.8-1.1) Activated Partial Thromboplast Time 35 SEC (24-38) Sodium Level 128 mmol/L (136-145) 130 mmol/L (136-145) 132 mmol/L (136-145) Potassium Level 3.7 mmol/L (3.5-5.1) 3.9 mmol/L (3.5-5.1) 4.1 mmol/L (3.5-5.1) Chloride Level 88 mmol/L (98-107) 96 mmol/L (98-107) 98 mmol/L (98-107) Carbon Dioxide Level 24 mmol/L (21-32) 25 mmol/L (21-32) 24 mmol/L (21-32) Anion Gap 16 (6-14) 9 (6-14) 10 (6-14) Blood Urea Nitrogen 59 mg/dL (8-26) 44 mg/dL (8-26) 35 mg/dL (8-26) Creatinine 8.7 mg/dL (0.7-1.3) 5.9 mg/dL (0.7-1.3) 5.2 mg/dL (0.7-1.3) Estimated GFR (Cockcroft-Gault) 7.2 11.3 13.1 Glucose Level 79 mg/dL (70-99) 100 mg/dL (70-99) 98 mg/dL (70-99) Calcium Level 6.6 mg/dL (8.5-10.1) 7.0 mg/dL (8.5-10.1) 7.3 mg/dL (8.5-10.1) Phosphorus Level 6.6 mg/dL (2.6-4.7) 4.1 mg/dL (2.6-4.7) 3.6 mg/dL (2.6-4.7) Magnesium Level 1.9 mg/dL (1.8-2.4) 2.1 mg/dL (1.8-2.4) Heparin Anti-Xa Act, Unfractionated 0.29 IU/mL (0.30-0.70) 0.34 IU/mL (0.30-0.70) Assessment Assessment Problems Medical Problems: (1) Elevated troponin Status: Acute (2) Hepatorenal syndrome Status: Acute (3) Hyperkalemia Status: Acute (4) Hyponatremia Status: Acute (5) Methamphetamine abuse Status: Acute (6) Neurological complaint Status: Acute (7) Rhabdomyolysis Status: Acute (8) Urinary retention Status: Acute (9) Urinary tract infection Status: Acute Plan Plan of Care Problems Medical Problems: (1) Elevated troponin Status: Acute (2) Hepatorenal syndrome Status: Acute (3) Hyperkalemia Status: Acute (4) Hyponatremia Status: Acute (5) Methamphetamine abuse Status: Acute (6) Neurological complaint Status: Acute (7) Rhabdomyolysis Status: Acute (8) Urinary retention Status: Acute (9) Urinary tract infection Status: Acute MAICOL JOSÉ MD Sep 15, 2018 11:34
[2018-09-15] MEDS: cefTRIAXone IV Push 2 GM VIAL. IVP SCH (13:12)
[2018-09-15] MEDS: HEPARIN 25,000UTS/500ML PREMIX 500 ML IV PRN (15:05)
[2018-09-15 15:06] LABS: BASO # 0.1 x10^3/uL (0.0-0.2); BASO % 1 % (0-3); EOS # 0.1 x10^3/uL (0.0-0.7); EOS % 2 % (0-3); HEMATOCRIT 31.3 % (39.0-53.0); LYMPH # 0.5 x10^3/uL (1.0-4.8); LYMPH % 6 % (24-48); MEAN CORPUSCULAR HEMOGLOBIN 29 pg (25-35); MEAN CORPUSCULAR HGB CONC 35 g/dL (31-37); MEAN CORPUSCULAR VOLUME 83 fL (79-100); MONO # 0.4 x10^3/uL (0.0-1.1); MONO % 5 % (0-9); NEUT # 6.9 x10^3/uL (1.8-7.7); NEUT % 86 % (31-73); PLATELET COUNT 196 x10^3/uL (140-400); RED BLOOD COUNT 3.77 x10^6/uL (4.30-5.70); RED CELL DISTRIBUTION WIDTH 12.9 % (11.5-14.5)
[2018-09-15 15:21] LABS: CALCIUM 7.4 mg/dL (8.5-10.1); CREATININE 4.2 mg/dL (0.7-1.3); GFR 16.7; MAGNESIUM 2.2 mg/dL (1.8-2.4); PHOSPHORUS 3.1 mg/dL (2.6-4.7); POTASSIUM 4.4 mmol/L (3.5-5.1)
[2018-09-15] MEDS: MORPHINE SULFATE 4 MG/ML VIAL. IV PRN (20:01)
[2018-09-15 21:57] LABS: BASO % 0 % (0-3); EOS # 0.1 x10^3/uL (0.0-0.7); EOS % 2 % (0-3); HEMATOCRIT 29.3 % (39.0-53.0); HEMOGLOBIN 10.3 g/dL (13.0-17.5); LYMPH # 0.5 x10^3/uL (1.0-4.8); LYMPH % 6 % (24-48); MEAN CORPUSCULAR HEMOGLOBIN 29 pg (25-35); MEAN CORPUSCULAR HGB CONC 35 g/dL (31-37); MEAN CORPUSCULAR VOLUME 83 fL (79-100); MONO # 0.5 x10^3/uL (0.0-1.1); MONO % 6 % (0-9); NEUT # 7.1 x10^3/uL (1.8-7.7); NEUT % 87 % (31-73); PLATELET COUNT 212 x10^3/uL (140-400); RED BLOOD COUNT 3.52 x10^6/uL (4.30-5.70); RED CELL DISTRIBUTION WIDTH 12.9 % (11.5-14.5); WHITE BLOOD COUNT 8.2 x10^3/uL (4.0-11.0)
[2018-09-15 22:13] LABS: CALCIUM 7.5 mg/dL (8.5-10.1); CREATININE 3.4 mg/dL (0.7-1.3); GFR 21.4; MAGNESIUM 2.3 mg/dL (1.8-2.4); PHOSPHORUS 2.6 mg/dL (2.6-4.7); POTASSIUM 4.3 mmol/L (3.5-5.1)
[2018-09-16] VITALS (16 sets, daily range): BP systolic 135–178; BP diastolic 77–120
[2018-09-16] MEDS: MORPHINE SULFATE 4 MG/ML VIAL. IV PRN ×3 (00:11→08:24)
[2018-09-16] MEDS: POTASSIUM CHLORIDE 20 MEQ in DIALYSIS SOLUTION BGK 0/2.5 5,000 ML IV SCH ×8 (00:15→05:13)
--- NOTE | 2018-09-16 02:30 | NUR ---
pt's filter clotted off again. attempts to flush line and decrease blood rate unsuccessful so pt removed from CRRT; plan is for pt to resume hemodialysis on Monday. will pass on in report, will continue to closely monitor.
[2018-09-16 06:32] LABS: CALCIUM 7.9 mg/dL (8.5-10.1); CREATININE 3.7 mg/dL (0.7-1.3); GFR 19.4; PHOSPHORUS 2.8 mg/dL (2.6-4.7); POTASSIUM 3.9 mmol/L (3.5-5.1)
[2018-09-16 06:44] LABS: BASO % 1 % (0-3); EOS # 0.2 x10^3/uL (0.0-0.7); EOS % 3 % (0-3); HEMATOCRIT 26.2 % (39.0-53.0); HEMOGLOBIN 9.2 g/dL (13.0-17.5); LYMPH # 0.8 x10^3/uL (1.0-4.8); LYMPH % 12 % (24-48); MEAN CORPUSCULAR HEMOGLOBIN 30 pg (25-35); MEAN CORPUSCULAR HGB CONC 35 g/dL (31-37); MEAN CORPUSCULAR VOLUME 84 fL (79-100); MONO # 0.6 x10^3/uL (0.0-1.1); MONO % 8 % (0-9); NEUT # 5.3 x10^3/uL (1.8-7.7); NEUT % 77 % (31-73); PLATELET COUNT 182 x10^3/uL (140-400); RED BLOOD COUNT 3.12 x10^6/uL (4.30-5.70); WHITE BLOOD COUNT 6.8 x10^3/uL (4.0-11.0)
--- NOTE | 2018-09-16 06:53 | PDOC ---
PULMONARY PROGRESS NOTES Subjective alert, no sob, cough, has low back pain, off precedex drip, crrt stopped 3 hrs ago, clotted line, hep gtt, Vitals Vital Signs Date Time Temp Pulse Resp B/P (MAP) Pulse Ox O2 Delivery O2 Flow Rate FiO2 09/16/18 06:00 109 19 140/77 (98) Room Air 09/16/18 04:00 99.5 97 99.5 Comments ros as mentioned as above, discussed w rn, other sys otherwise neg General: No acute distress, Lethargic HEENT: Other (nc at perrl nose clear neck no lad no thyromegaly) Lungs: Crackles Cardiovascular: S1, S2 Abdomen: Soft, Non-tender, Other (no mass) Extremities: Other (1+edema,) Skin: Warm Labs Laboratory Tests Test 09/14/18 12:20 09/15/18 03:00 09/15/18 09:00 09/15/18 14:50 White Blood Count 7.1 x10^3/uL (4.0-11.0) 5.9 x10^3/uL (4.0-11.0) 7.9 x10^3/uL (4.0-11.0) 8.0 x10^3/uL (4.0-11.0) Red Blood Count 3.92 x10^6/uL (4.30-5.70) 3.86 x10^6/uL (4.30-5.70) 3.86 x10^6/uL (4.30-5.70) 3.77 x10^6/uL (4.30-5.70) Hemoglobin 11.5 g/dL (13.0-17.5) 11.4 g/dL (13.0-17.5) 11.3 g/dL (13.0-17.5) 11.0 g/dL (13.0-17.5) Hematocrit 32.6 % (39.0-53.0) 31.8 % (39.0-53.0) 32.1 % (39.0-53.0) 31.3 % (39.0-53.0) Mean Corpuscular Volume 83 fL (79-100) 82 fL (79-100) 83 fL (79-100) 83 fL (79-100) Mean Corpuscular Hemoglobin 30 pg (25-35) 30 pg (25-35) 29 pg (25-35) 29 pg (25-35) Mean Corpuscular Hemoglobin Concent 35 g/dL (31-37) 36 g/dL (31-37) 35 g/dL (31-37) 35 g/dL (31-37) Red Cell Distribution Width 13.2 % (11.5-14.5) 12.9 % (11.5-14.5) 12.9 % (11.5-14.5) 12.9 % (11.5-14.5) Platelet Count 178 x10^3/uL (140-400) 172 x10^3/uL (140-400) 164 x10^3/uL (140-400) 196 x10^3/uL (140-400) Neutrophils (%) (Auto) 84 % (31-73) 76 % (31-73) 88 % (31-73) 86 % (31-73) Lymphocytes (%) (Auto) 10 % (24-48) 16 % (24-48) 6 % (24-48) 6 % (24-48) Monocytes (%) (Auto) 4 % (0-9) 3 % (0-9) 3 % (0-9) 5 % (0-9) Eosinophils (%) (Auto) 2 % (0-3) 4 % (0-3) 2 % (0-3) 2 % (0-3) Basophils (%) (Auto) 0 % (0-3) 1 % (0-3) 1 % (0-3) 1 % (0-3) Neutrophils # (Auto) 6.0 x10^3/uL (1.8-7.7) 4.5 x10^3/uL (1.8-7.7) 7.0 x10^3/uL (1.8-7.7) 6.9 x10^3/uL (1.8-7.7) Lymphocytes # (Auto) 0.7 x10^3/uL (1.0-4.8) 1.0 x10^3/uL (1.0-4.8) 0.5 x10^3/uL (1.0-4.8) 0.5 x10^3/uL (1.0-4.8) Monocytes # (Auto) 0.3 x10^3/uL (0.0-1.1) 0.2 x10^3/uL (0.0-1.1) 0.2 x10^3/uL (0.0-1.1) 0.4 x10^3/uL (0.0-1.1) Eosinophils # (Auto) 0.2 x10^3/uL (0.0-0.7) 0.2 x10^3/uL (0.0-0.7) 0.2 x10^3/uL (0.0-0.7) 0.1 x10^3/uL (0.0-0.7) Basophils # (Auto) 0.0 x10^3/uL (0.0-0.2) 0.0 x10^3/uL (0.0-0.2) 0.0 x10^3/uL (0.0-0.2) 0.1 x10^3/uL (0.0-0.2) Prothrombin Time 14.6 SEC (11.7-14.0) Prothromb Time International Ratio 1.2 (0.8-1.1) Activated Partial Thromboplast Time 35 SEC (24-38) Sodium Level 128 mmol/L (136-145) 130 mmol/L (136-145) 132 mmol/L (136-145) 133 mmol/L (136-145) Potassium Level 3.7 mmol/L (3.5-5.1) 3.9 mmol/L (3.5-5.1) 4.1 mmol/L (3.5-5.1) 4.4 mmol/L (3.5-5.1) Chloride Level 88 mmol/L (98-107) 96 mmol/L (98-107) 98 mmol/L (98-107) 100 mmol/L (98-107) Carbon Dioxide Level 24 mmol/L (21-32) 25 mmol/L (21-32) 24 mmol/L (21-32) 26 mmol/L (21-32) Anion Gap 16 (6-14) 9 (6-14) 10 (6-14) 7 (6-14) Blood Urea Nitrogen 59 mg/dL (8-26) 44 mg/dL (8-26) 35 mg/dL (8-26) 28 mg/dL (8-26) Creatinine 8.7 mg/dL (0.7-1.3) 5.9 mg/dL (0.7-1.3) 5.2 mg/dL (0.7-1.3) 4.2 mg/dL (0.7-1.3) Estimated GFR (Cockcroft-Gault) 7.2 11.3 13.1 16.7 Glucose Level 79 mg/dL (70-99) 100 mg/dL (70-99) 98 mg/dL (70-99) 111 mg/dL (70-99) Calcium Level 6.6 mg/dL (8.5-10.1) 7.0 mg/dL (8.5-10.1) 7.3 mg/dL (8.5-10.1) 7.4 mg/dL (8.5-10.1) Phosphorus Level 6.6 mg/dL (2.6-4.7) 4.1 mg/dL (2.6-4.7) 3.6 mg/dL (2.6-4.7) 3.1 mg/dL (2.6-4.7) Magnesium Level 1.9 mg/dL (1.8-2.4) 2.1 mg/dL (1.8-2.4) 2.2 mg/dL (1.8-2.4) Heparin Anti-Xa Act, Unfractionated 0.29 IU/mL (0.30-0.70) 0.34 IU/mL (0.30-0.70) 0.33 IU/mL (0.30-0.70) Test 09/15/18 21:45 09/16/18 06:00 White Blood Count 8.2 x10^3/uL (4.0-11.0) Red Blood Count 3.52 x10^6/uL (4.30-5.70) Hemoglobin 10.3 g/dL (13.0-17.5) Hematocrit 29.3 % (39.0-53.0) Mean Corpuscular Volume 83 fL (79-100) Mean Corpuscular Hemoglobin 29 pg (25-35) Mean Corpuscular Hemoglobin Concent 35 g/dL (31-37) Red Cell Distribution Width 12.9 % (11.5-14.5) Platelet Count 212 x10^3/uL (140-400) Neutrophils (%) (Auto) 87 % (31-73) Lymphocytes (%) (Auto) 6 % (24-48) Monocytes (%) (Auto) 6 % (0-9) Eosinophils (%) (Auto) 2 % (0-3) Basophils (%) (Auto) 0 % (0-3) Neutrophils # (Auto) 7.1 x10^3/uL (1.8-7.7) Lymphocytes # (Auto) 0.5 x10^3/uL (1.0-4.8) Monocytes # (Auto) 0.5 x10^3/uL (0.0-1.1) Eosinophils # (Auto) 0.1 x10^3/uL (0.0-0.7) Basophils # (Auto) 0.0 x10^3/uL (0.0-0.2) Sodium Level 132 mmol/L (136-145) 133 mmol/L (136-145) Potassium Level 4.3 mmol/L (3.5-5.1) 3.9 mmol/L (3.5-5.1) Chloride Level 98 mmol/L (98-107) 99 mmol/L (98-107) Carbon Dioxide Level 23 mmol/L (21-32) 23 mmol/L (21-32) Anion Gap 11 (6-14) 11 (6-14) Blood Urea Nitrogen 21 mg/dL (8-26) 20 mg/dL (8-26) Creatinine 3.4 mg/dL (0.7-1.3) 3.7 mg/dL (0.7-1.3) Estimated GFR (Cockcroft-Gault) 21.4 19.4 Glucose Level 120 mg/dL (70-99) 101 mg/dL (70-99) Calcium Level 7.5 mg/dL (8.5-10.1) 7.9 mg/dL (8.5-10.1) Phosphorus Level 2.6 mg/dL (2.6-4.7) 2.8 mg/dL (2.6-4.7) Magnesium Level 2.3 mg/dL (1.8-2.4) 2.3 mg/dL (1.8-2.4) Laboratory Tests Test 09/15/18 09:00 09/15/18 14:50 09/15/18 21:45 09/16/18 06:00 White Blood Count 7.9 x10^3/uL (4.0-11.0) 8.0 x10^3/uL (4.0-11.0) 8.2 x10^3/uL (4.0-11.0) Red Blood Count 3.86 x10^6/uL (4.30-5.70) 3.77 x10^6/uL (4.30-5.70) 3.52 x10^6/uL (4.30-5.70) Hemoglobin 11.3 g/dL (13.0-17.5) 11.0 g/dL (13.0-17.5) 10.3 g/dL (13.0-17.5) Hematocrit 32.1 % (39.0-53.0) 31.3 % (39.0-53.0) 29.3 % (39.0-53.0) Mean Corpuscular Volume 83 fL (79-100) 83 fL (79-100) 83 fL (79-100) Mean Corpuscular Hemoglobin 29 pg (25-35) 29 pg (25-35) 29 pg (25-35) Mean Corpuscular Hemoglobin Concent 35 g/dL (31-37) 35 g/dL (31-37) 35 g/dL (31-37) Red Cell Distribution Width 12.9 % (11.5-14.5) 12.9 % (11.5-14.5) 12.9 % (11.5-14.5) Platelet Count 164 x10^3/uL (140-400) 196 x10^3/uL (140-400) 212 x10^3/uL (140-400) Neutrophils (%) (Auto) 88 % (31-73) 86 % (31-73) 87 % (31-73) Lymphocytes (%) (Auto) 6 % (24-48) 6 % (24-48) 6 % (24-48) Monocytes (%) (Auto) 3 % (0-9) 5 % (0-9) 6 % (0-9) Eosinophils (%) (Auto) 2 % (0-3) 2 % (0-3) 2 % (0-3) Basophils (%) (Auto) 1 % (0-3) 1 % (0-3) 0 % (0-3) Neutrophils # (Auto) 7.0 x10^3/uL (1.8-7.7) 6.9 x10^3/uL (1.8-7.7) 7.1 x10^3/uL (1.8-7.7) Lymphocytes # (Auto) 0.5 x10^3/uL (1.0-4.8) 0.5 x10^3/uL (1.0-4.8) 0.5 x10^3/uL (1.0-4.8) Monocytes # (Auto) 0.2 x10^3/uL (0.0-1.1) 0.4 x10^3/uL (0.0-1.1) 0.5 x10^3/uL (0.0-1.1) Eosinophils # (Auto) 0.2 x10^3/uL (0.0-0.7) 0.1 x10^3/uL (0.0-0.7) 0.1 x10^3/uL (0.0-0.7) Basophils # (Auto) 0.0 x10^3/uL (0.0-0.2) 0.1 x10^3/uL (0.0-0.2) 0.0 x10^3/uL (0.0-0.2) Heparin Anti-Xa Act, Unfractionated 0.34 IU/mL (0.30-0.70) 0.33 IU/mL (0.30-0.70) Sodium Level 132 mmol/L (136-145) 133 mmol/L (136-145) 132 mmol/L (136-145) 133 mmol/L (136-145) Potassium Level 4.1 mmol/L (3.5-5.1) 4.4 mmol/L (3.5-5.1) 4.3 mmol/L (3.5-5.1) 3.9 mmol/L (3.5-5.1) Chloride Level 98 mmol/L (98-107) 100 mmol/L (98-107) 98 mmol/L (98-107) 99 mmol/L (98-107) Carbon Dioxide Level 24 mmol/L (21-32) 26 mmol/L (21-32) 23 mmol/L (21-32) 23 mmol/L (21-32) Anion Gap 10 (6-14) 7 (6-14) 11 (6-14) 11 (6-14) Blood Urea Nitrogen 35 mg/dL (8-26) 28 mg/dL (8-26) 21 mg/dL (8-26) 20 mg/dL (8-26) Creatinine 5.2 mg/dL (0.7-1.3) 4.2 mg/dL (0.7-1.3) 3.4 mg/dL (0.7-1.3) 3.7 mg/dL (0.7-1.3) Estimated GFR (Cockcroft-Gault) 13.1 16.7 21.4 19.4 Glucose Level 98 mg/dL (70-99) 111 mg/dL (70-99) 120 mg/dL (70-99) 101 mg/dL (70-99) Calcium Level 7.3 mg/dL (8.5-10.1) 7.4 mg/dL (8.5-10.1) 7.5 mg/dL (8.5-10.1) 7.9 mg/dL (8.5-10.1) Phosphorus Level 3.6 mg/dL (2.6-4.7) 3.1 mg/dL (2.6-4.7) 2.6 mg/dL (2.6-4.7) 2.8 mg/dL (2.6-4.7) Magnesium Level 2.2 mg/dL (1.8-2.4) 2.3 mg/dL (1.8-2.4) 2.3 mg/dL (1.8-2.4) Medications Active Scripts Medications Dose Route/Sig Max Daily Dose Days Date Category Protonix (Pantoprazole Sodium) 20 Mg Tablet.dr 2 Tab PO DAILY 09/12/18 Reported Zyprexa (Olanzapine) 20 Mg Tablet 2 Tab PO QHS 09/12/18 Reported Buspirone Hcl 30 Mg Tablet 1 Tab PO BID 09/12/18 Reported Comments 09/16, cxr reviewed increased vm Impression . 1. Status post fall with acute rhabdomyolysis with markedly high CPKs and acute renal failure. 2. Acute kidney injury secondary to rhabdomyolysis. 3. Severe metabolic acidosis secondary to acute kidney injury. Clinically, less likely sepsis. Lactic acid is 1.1 4. Hyponatremia.improving 5. Moderate protein-calorie malnutrition. 6. Leukocytosis, likely reactive. 7. Status post fall with abnormal thoracic MRI. Neurosurgery following. 8. Abnormal liver function test secondary to hypoperfusion and rhabdomyolysis. 9. Hypocalcemia.improving Plan . 1. s/p fluid resuscitation, was on CRRT 2. Follow Renal's recommendation. 3. prn bicarbonate. 4. Monitor sodium level. improving 5. Follow Neurology and Neurosurgery's recommendation. 6. Continue empiric antibiotic, per id 7. Follow CPKs., trending down 8. Correct calcium and follow the levels.improving 9. chest x-ray, increased vm 10. avoid oversedation Discussed with RN and will follow along with you. NOEL ESQUIVEL MD Sep 16, 2018 06:53
--- NOTE | 2018-09-16 07:58 | RAD ---
EXAM: CHEST 1 VIEW History: Continuous dialysis COMPARISON: 09/15/2018 TECHNIQUE: Single portable radiograph of the chest Findings/ impression: Low lung volumes and technique accentuates heart size and pulmonary vascularity. Right-sided dialysis catheter is unchanged. Mild prominent bilateral interstitial lung markings likely mild congestive changes similar to prior exam. Electronically signed by: Carlos Brower MD (09/16/2018 7:55 AM) [facility]
[2018-09-16] MEDS: LINEZOLID 600 MG TABLET PO SCH ×2 (08:24→21:21)
[2018-09-16] MEDS: PANTOPRAZOLE IV PUSH 40 MG VIAL. IVP SCH (08:24)
[2018-09-16] MEDS: POLYETHYLENE GLYCOL 3350 17 GM PACKET. PO SCH (08:24)
--- NOTE | 2018-09-16 08:36 | PDOC ---
Infectious Disease Note Subjective Subjective c/o lower back pain, otherwise doing alright Eating some [place] toast and scrambled eggs this morning Denies F/C/N/V/D/SOA Off CRRT Dressings recently changed ROS ROS per HPI Vital Sign Vital Signs Vital Signs Date Time Temp Pulse Resp B/P (MAP) Pulse Ox O2 Delivery O2 Flow Rate FiO2 09/16/18 06:00 109 19 140/77 (98) Room Air 09/16/18 04:00 99.5 97 99.5 Physical Exam PHYSICAL EXAM GENERAL: Sitting in the chair, eating, NAD EENT: Pupils equal, oral cavity clear NECK: Supple. LUNGS: Clear bilaterally. No wheezing. HEART: S1, S2, regular, tachy 120s ABDOMEN: Soft, nontender, BS present : Fernandez EXTREMITIES: Generalized trace edema, no cyanosis. Right index and thumb bandaged. (pic reviewed) CENTRAL NERVOUS SYSTEM: Alert, answering appropriately RIJ/HDC without signs of complications PIV Labs Lab Laboratory Tests Test 09/15/18 09:00 09/15/18 14:50 09/15/18 21:45 09/16/18 06:00 White Blood Count 7.9 x10^3/uL (4.0-11.0) 8.0 x10^3/uL (4.0-11.0) 8.2 x10^3/uL (4.0-11.0) 6.8 x10^3/uL (4.0-11.0) Red Blood Count 3.86 x10^6/uL (4.30-5.70) 3.77 x10^6/uL (4.30-5.70) 3.52 x10^6/uL (4.30-5.70) 3.12 x10^6/uL (4.30-5.70) Hemoglobin 11.3 g/dL (13.0-17.5) 11.0 g/dL (13.0-17.5) 10.3 g/dL (13.0-17.5) 9.2 g/dL (13.0-17.5) Hematocrit 32.1 % (39.0-53.0) 31.3 % (39.0-53.0) 29.3 % (39.0-53.0) 26.2 % (39.0-53.0) Mean Corpuscular Volume 83 fL (79-100) 83 fL (79-100) 83 fL (79-100) 84 fL (79-100) Mean Corpuscular Hemoglobin 29 pg (25-35) 29 pg (25-35) 29 pg (25-35) 30 pg (25-35) Mean Corpuscular Hemoglobin Concent 35 g/dL (31-37) 35 g/dL (31-37) 35 g/dL (31-37) 35 g/dL (31-37) Red Cell Distribution Width 12.9 % (11.5-14.5) 12.9 % (11.5-14.5) 12.9 % (11.5-14.5) 13.0 % (11.5-14.5) Platelet Count 164 x10^3/uL (140-400) 196 x10^3/uL (140-400) 212 x10^3/uL (140-400) 182 x10^3/uL (140-400) Neutrophils (%) (Auto) 88 % (31-73) 86 % (31-73) 87 % (31-73) 77 % (31-73) Lymphocytes (%) (Auto) 6 % (24-48) 6 % (24-48) 6 % (24-48) 12 % (24-48) Monocytes (%) (Auto) 3 % (0-9) 5 % (0-9) 6 % (0-9) 8 % (0-9) Eosinophils (%) (Auto) 2 % (0-3) 2 % (0-3) 2 % (0-3) 3 % (0-3) Basophils (%) (Auto) 1 % (0-3) 1 % (0-3) 0 % (0-3) 1 % (0-3) Neutrophils # (Auto) 7.0 x10^3/uL (1.8-7.7) 6.9 x10^3/uL (1.8-7.7) 7.1 x10^3/uL (1.8-7.7) 5.3 x10^3/uL (1.8-7.7) Lymphocytes # (Auto) 0.5 x10^3/uL (1.0-4.8) 0.5 x10^3/uL (1.0-4.8) 0.5 x10^3/uL (1.0-4.8) 0.8 x10^3/uL (1.0-4.8) Monocytes # (Auto) 0.2 x10^3/uL (0.0-1.1) 0.4 x10^3/uL (0.0-1.1) 0.5 x10^3/uL (0.0-1.1) 0.6 x10^3/uL (0.0-1.1) Eosinophils # (Auto) 0.2 x10^3/uL (0.0-0.7) 0.1 x10^3/uL (0.0-0.7) 0.1 x10^3/uL (0.0-0.7) 0.2 x10^3/uL (0.0-0.7) Basophils # (Auto) 0.0 x10^3/uL (0.0-0.2) 0.1 x10^3/uL (0.0-0.2) 0.0 x10^3/uL (0.0-0.2) 0.0 x10^3/uL (0.0-0.2) Heparin Anti-Xa Act, Unfractionated 0.34 IU/mL (0.30-0.70) 0.33 IU/mL (0.30-0.70) 0.29 IU/mL (0.30-0.70) Sodium Level 132 mmol/L (136-145) 133 mmol/L (136-145) 132 mmol/L (136-145) 133 mmol/L (136-145) Potassium Level 4.1 mmol/L (3.5-5.1) 4.4 mmol/L (3.5-5.1) 4.3 mmol/L (3.5-5.1) 3.9 mmol/L (3.5-5.1) Chloride Level 98 mmol/L (98-107) 100 mmol/L (98-107) 98 mmol/L (98-107) 99 mmol/L (98-107) Carbon Dioxide Level 24 mmol/L (21-32) 26 mmol/L (21-32) 23 mmol/L (21-32) 23 mmol/L (21-32) Anion Gap 10 (6-14) 7 (6-14) 11 (6-14) 11 (6-14) Blood Urea Nitrogen 35 mg/dL (8-26) 28 mg/dL (8-26) 21 mg/dL (8-26) 20 mg/dL (8-26) Creatinine 5.2 mg/dL (0.7-1.3) 4.2 mg/dL (0.7-1.3) 3.4 mg/dL (0.7-1.3) 3.7 mg/dL (0.7-1.3) Estimated GFR (Cockcroft-Gault) 13.1 16.7 21.4 19.4 Glucose Level 98 mg/dL (70-99) 111 mg/dL (70-99) 120 mg/dL (70-99) 101 mg/dL (70-99) Calcium Level 7.3 mg/dL (8.5-10.1) 7.4 mg/dL (8.5-10.1) 7.5 mg/dL (8.5-10.1) 7.9 mg/dL (8.5-10.1) Phosphorus Level 3.6 mg/dL (2.6-4.7) 3.1 mg/dL (2.6-4.7) 2.6 mg/dL (2.6-4.7) 2.8 mg/dL (2.6-4.7) Magnesium Level 2.2 mg/dL (1.8-2.4) 2.3 mg/dL (1.8-2.4) 2.3 mg/dL (1.8-2.4) Creatine Kinase 21543 U/L (39-308) Micro 09/12/18 Blood Culture - Preliminary, Resulted NO GROWTH AFTER 3 DAYS 09/12. GRAM STAIN,CSF Final WBCS OCCASIONAL ORGANISMS NONE SEEN 09/11. URINE CULTURE RES 1 Final No growth Objective Assessment Right hand burn to index finger with cellulitis, superficial. No evidence of sinus tract. X ray neg History of intravenous drug use Leukocytosis, likely reactive.resolved History of fall with rhabdomyolysis. CK >100,000 - trending down Hyponatremia, hyperkalemia, severe metabolic acidosis, acute kidney injury off CRRT Transaminitis. Gallbladder sludge on ultrasound. Methicillin-resistant Staphylococcus aureus screen positive. Bilateral lower extremity weakness, numbness and history of fall prior to admission. Urinary retention - Fernandez in place. Paresthesia. Abnormal T2 signal within the right greater than left paraspinal musculature and psoas, which can be seen with edema in these regions. Neurology and Neurosurgery consulted. -s/p LP 09/12: CSF WBC 3, glu 52, TP 52.3. gram stain showed no organisms. Cx pending Hematuria with occasional wbc's on urinalysis. Plan Plan of Care Continue Zyvox.(09/13) and Rocephin (09/13) local wound care. Pictures reviewed with nursing Cultures neg to date Clinically better. In chair and eating lunch D/w nursing Attending Co-Sign Attending Co-Sign The patient was seen and interviewed as well as examined at the bedside. The chart was reviewed. The case was discussed. Agree with the plan of care. ASIA VELASQUEZ APRN Sep 16, 2018 08:36 FATOU EVERETT MD Sep 16, 2018 12:30
--- NOTE | 2018-09-16 10:28 | PDOC ---
PROGRESS NOTES History of Present Illness History of Present Illness VTE Prophylaxis Ordered VTE Prophylaxis Devices: No VTE Pharmacological Prophylaxi: Contraindicated Assessment/Plan ARF from the rhabdomyolysis. GB sludge of questionable signifi cance. TRANSAMINITIS Elevated troponin SUSPECT Stress induced Urinary tract infection Methamphetamine abuse, SEVERE Hyperkalemia Hyponatremia hypocalcemia Urinary retention URINE CULTURE Final Final report URINE CULTURE RES 1 Final No growth Rhabdomyolysis, severe Hypocalcemia- severe 2/2 Rhabdo paresthesia evidence of degenerative changes the spine with disc protrusions and annular tears at L4-5 and L5-S1 as well as osteophyte formation at vertebral body endplates and facet hypertrophy. This contributes to central canal and neural foraminal stenosis Epidural lipomatosis is identified most severe in the lower lumbar spine extending into the sacrum with resultant small size of the thecal sac. High T2 signal is identified within the right greater than left paraspinal musculature and psoas which can be seen with edema to these regions. Can be seen with causes such as myositis, muscle strain or neurological in nature from causes such as denervation associated edema. Gallbladder was distended. Gallstones were not identified. There was mild sludge in the gallbladder. Gallbladder wall was upper normal in thickness. 3rd degree burn to right index finger with cellulitis severe, likely recurrent SEC TO HOLDING METH PIPE MRSA NARES POS possible hepatitis c 09/13 REMAINS AGITATED now on precedex sedation 09/14 started on HD, now on CRRT 09/15 New right perihilar lung infiltrate vs pulmonary edema. diet to ADA d/w RN., HAS SITTER IN ROOM plan ADMIT ICU BED GI following hepatitis dx panel, viral, acute NOTED nephrology consult, DIALYSIS neurosurgery consult Neurology consulted and lumbar puncture CARDIOLOGY CONSULT ionized ca ID following Continue Zyvox.(09/13) and Rocephin (09/13) ORTHO CONSULT REVIEWED off precedex drip, 09/16 POOR PROGNOSIS due to severe drug abuse per my chart review 37 MIN CC TIME Vitals Vitals Vital Signs Date Time Temp Pulse Resp B/P (MAP) Pulse Ox O2 Delivery O2 Flow Rate FiO2 09/16/18 10:00 117 23 158/88 (111) 97 Room Air 09/16/18 08:00 99.0 99.0 Physical Exam Physical Exam GENERAL: Sitting in the chair, eating, NAD EENT: Pupils equal, oral cavity clear NECK: Supple. LUNGS: Clear bilaterally. No wheezing. HEART: S1, S2, regular, tachy 108s ABDOMEN: Soft, nontender, BS present : Fernandez EXTREMITIES: Generalized trace edema, no cyanosis. Right index and thumb bandaged. (pic reviewed) CENTRAL NERVOUS SYSTEM: Alert, answering appropriately RIJ/HDC without signs of complications PIV General: Oriented X3, Cooperative, mild distress Heart: Regular rate, Normal S1, No murmurs Lungs: Crackles Abdomen: Normal bowel sounds, Soft, No hepatosplenomegaly, Other (obese, no fluid wave) Extremities: No clubbing, No cyanosis, No edema, Other (burn to right index finger APPEARS OLD associated cellulitis) Labs LABS EXAM: CHEST 1 VIEW History: Continuous dialysis COMPARISON: 09/15/2018 TECHNIQUE: Single portable radiograph of the chest Findings/ impression: Low lung volumes and technique accentuates heart size and pulmonary vascularity. Right-sided dialysis catheter is unchanged. Mild prominent bilateral interstitial lung markings likely mild congestive changes similar to prior exam. Electronically signed by: Carlos Brower MD (09/16/2018 7:55 AM) [facility] DICTATED and SIGNED BY: CARLOS BROWER MD DATE: 09/16/18 0755 RECD: 09/11/18 [facility] DR: EMERY FLANNERY APRN SOURCE: URINE FOL ENTR: 09/11/[address]: LETY PCP SPDESC: INDWELLING ORDERED: URINE CULTURE - Procedure Result URINE CULTURE Final Final report URINE CULTURE RES 1 Final No growth Performed at: [address], [place] [id number] [employer] Operator: RADHA Cunningham MD, Phone: [phone] EMERY CHANEY MD ORDERED: ANAER/AEROB/GS Procedure Result ANAEROBIC-AEROBIC CULTURE PENDING ANAEROBIC RES 1 PENDING AEROBIC CULT PENDING AEROBIC RES 1 PENDING GRAM STAIN Final Final report GRAM STAIN RES 1 Final Comment No white blood cells seen. GRAM STAIN RES 2 Final No organisms seen Performed at: [address], [place] [id number] [employer] Operator: RADAH Cunningham MD, Phone: [phone] SPEC #: [id number] IFRAH: 09/12/18 STATUS: RES REQ #: [id number] RECD: 09/12/18 [facility] DR: EMERY FLANNERY APRN SOURCE: BLOOD ENTR: 09/11/18 [facility] [address]: LETY GUZMÁN [facility]: ORDERED: BCULT Procedure Result BLOOD CULTURE Preliminary NO GROWTH AFTER 4 DAYS Laboratory Tests Test 09/15/18 14:50 09/15/18 21:45 09/16/18 06:00 White Blood Count 8.0 x10^3/uL (4.0-11.0) 8.2 x10^3/uL (4.0-11.0) 6.8 x10^3/uL (4.0-11.0) Red Blood Count 3.77 x10^6/uL (4.30-5.70) 3.52 x10^6/uL (4.30-5.70) 3.12 x10^6/uL (4.30-5.70) Hemoglobin 11.0 g/dL (13.0-17.5) 10.3 g/dL (13.0-17.5) 9.2 g/dL (13.0-17.5) Hematocrit 31.3 % (39.0-53.0) 29.3 % (39.0-53.0) 26.2 % (39.0-53.0) Mean Corpuscular Volume 83 fL (79-100) 83 fL (79-100) 84 fL (79-100) Mean Corpuscular Hemoglobin 29 pg (25-35) 29 pg (25-35) 30 pg (25-35) Mean Corpuscular Hemoglobin Concent 35 g/dL (31-37) 35 g/dL (31-37) 35 g/dL (31-37) Red Cell Distribution Width 12.9 % (11.5-14.5) 12.9 % (11.5-14.5) 13.0 % (11.5-14.5) Platelet Count 196 x10^3/uL (140-400) 212 x10^3/uL (140-400) 182 x10^3/uL (140-400) Neutrophils (%) (Auto) 86 % (31-73) 87 % (31-73) 77 % (31-73) Lymphocytes (%) (Auto) 6 % (24-48) 6 % (24-48) 12 % (24-48) Monocytes (%) (Auto) 5 % (0-9) 6 % (0-9) 8 % (0-9) Eosinophils (%) (Auto) 2 % (0-3) 2 % (0-3) 3 % (0-3) Basophils (%) (Auto) 1 % (0-3) 0 % (0-3) 1 % (0-3) Neutrophils # (Auto) 6.9 x10^3/uL (1.8-7.7) 7.1 x10^3/uL (1.8-7.7) 5.3 x10^3/uL (1.8-7.7) Lymphocytes # (Auto) 0.5 x10^3/uL (1.0-4.8) 0.5 x10^3/uL (1.0-4.8) 0.8 x10^3/uL (1.0-4.8) Monocytes # (Auto) 0.4 x10^3/uL (0.0-1.1) 0.5 x10^3/uL (0.0-1.1) 0.6 x10^3/uL (0.0-1.1) Eosinophils # (Auto) 0.1 x10^3/uL (0.0-0.7) 0.1 x10^3/uL (0.0-0.7) 0.2 x10^3/uL (0.0-0.7) Basophils # (Auto) 0.1 x10^3/uL (0.0-0.2) 0.0 x10^3/uL (0.0-0.2) 0.0 x10^3/uL (0.0-0.2) Heparin Anti-Xa Act, Unfractionated 0.33 IU/mL (0.30-0.70) 0.29 IU/mL (0.30-0.70) Sodium Level 133 mmol/L (136-145) 132 mmol/L (136-145) 133 mmol/L (136-145) Potassium Level 4.4 mmol/L (3.5-5.1) 4.3 mmol/L (3.5-5.1) 3.9 mmol/L (3.5-5.1) Chloride Level 100 mmol/L (98-107) 98 mmol/L (98-107) 99 mmol/L (98-107) Carbon Dioxide Level 26 mmol/L (21-32) 23 mmol/L (21-32) 23 mmol/L (21-32) Anion Gap 7 (6-14) 11 (6-14) 11 (6-14) Blood Urea Nitrogen 28 mg/dL (8-26) 21 mg/dL (8-26) 20 mg/dL (8-26) Creatinine 4.2 mg/dL (0.7-1.3) 3.4 mg/dL (0.7-1.3) 3.7 mg/dL (0.7-1.3) Estimated GFR (Cockcroft-Gault) 16.7 21.4 19.4 Glucose Level 111 mg/dL (70-99) 120 mg/dL (70-99) 101 mg/dL (70-99) Calcium Level 7.4 mg/dL (8.5-10.1) 7.5 mg/dL (8.5-10.1) 7.9 mg/dL (8.5-10.1) Phosphorus Level 3.1 mg/dL (2.6-4.7) 2.6 mg/dL (2.6-4.7) 2.8 mg/dL (2.6-4.7) Magnesium Level 2.2 mg/dL (1.8-2.4) 2.3 mg/dL (1.8-2.4) 2.3 mg/dL (1.8-2.4) Creatine Kinase 55778 U/L (39-308) Assessment and Plan Assessmemt and Plan Problems Medical Problems: (1) Elevated troponin Status: Acute (2) Hepatorenal syndrome Status: Acute (3) Hyperkalemia Status: Acute (4) Hyponatremia Status: Acute (5) Methamphetamine abuse Status: Acute (6) Neurological complaint Status: Acute (7) Rhabdomyolysis Status: Acute (8) Urinary retention Status: Acute (9) Urinary tract infection Status: Acute Comment Review of Relevant I have reviewed the following items ashlie (where applicable) has been applied. Labs Laboratory Tests Test 09/14/18 12:20 09/15/18 03:00 09/15/18 09:00 09/15/18 14:50 White Blood Count 7.1 x10^3/uL (4.0-11.0) 5.9 x10^3/uL (4.0-11.0) 7.9 x10^3/uL (4.0-11.0) 8.0 x10^3/uL (4.0-11.0) Red Blood Count 3.92 x10^6/uL (4.30-5.70) 3.86 x10^6/uL (4.30-5.70) 3.86 x10^6/uL (4.30-5.70) 3.77 x10^6/uL (4.30-5.70) Hemoglobin 11.5 g/dL (13.0-17.5) 11.4 g/dL (13.0-17.5) 11.3 g/dL (13.0-17.5) 11.0 g/dL (13.0-17.5) Hematocrit 32.6 % (39.0-53.0) 31.8 % (39.0-53.0) 32.1 % (39.0-53.0) 31.3 % (39.0-53.0) Mean Corpuscular Volume 83 fL (79-100) 82 fL (79-100) 83 fL (79-100) 83 fL (79-100) Mean Corpuscular Hemoglobin 30 pg (25-35) 30 pg (25-35) 29 pg (25-35) 29 pg (25-35) Mean Corpuscular Hemoglobin Concent 35 g/dL (31-37) 36 g/dL (31-37) 35 g/dL (31-37) 35 g/dL (31-37) Red Cell Distribution Width 13.2 % (11.5-14.5) 12.9 % (11.5-14.5) 12.9 % (11.5-14.5) 12.9 % (11.5-14.5) Platelet Count 178 x10^3/uL (140-400) 172 x10^3/uL (140-400) 164 x10^3/uL (140-400) 196 x10^3/uL (140-400) Neutrophils (%) (Auto) 84 % (31-73) 76 % (31-73) 88 % (31-73) 86 % (31-73) Lymphocytes (%) (Auto) 10 % (24-48) 16 % (24-48) 6 % (24-48) 6 % (24-48) Monocytes (%) (Auto) 4 % (0-9) 3 % (0-9) 3 % (0-9) 5 % (0-9) Eosinophils (%) (Auto) 2 % (0-3) 4 % (0-3) 2 % (0-3) 2 % (0-3) Basophils (%) (Auto) 0 % (0-3) 1 % (0-3) 1 % (0-3) 1 % (0-3) Neutrophils # (Auto) 6.0 x10^3/uL (1.8-7.7) 4.5 x10^3/uL (1.8-7.7) 7.0 x10^3/uL (1.8-7.7) 6.9 x10^3/uL (1.8-7.7) Lymphocytes # (Auto) 0.7 x10^3/uL (1.0-4.8) 1.0 x10^3/uL (1.0-4.8) 0.5 x10^3/uL (1.0-4.8) 0.5 x10^3/uL (1.0-4.8) Monocytes # (Auto) 0.3 x10^3/uL (0.0-1.1) 0.2 x10^3/uL (0.0-1.1) 0.2 x10^3/uL (0.0-1.1) 0.4 x10^3/uL (0.0-1.1) Eosinophils # (Auto) 0.2 x10^3/uL (0.0-0.7) 0.2 x10^3/uL (0.0-0.7) 0.2 x10^3/uL (0.0-0.7) 0.1 x10^3/uL (0.0-0.7) Basophils # (Auto) 0.0 x10^3/uL (0.0-0.2) 0.0 x10^3/uL (0.0-0.2) 0.0 x10^3/uL (0.0-0.2) 0.1 x10^3/uL (0.0-0.2) Prothrombin Time 14.6 SEC (11.7-14.0) Prothromb Time International Ratio 1.2 (0.8-1.1) Activated Partial Thromboplast Time 35 SEC (24-38) Sodium Level 128 mmol/L (136-145) 130 mmol/L (136-145) 132 mmol/L (136-145) 133 mmol/L (136-145) Potassium Level 3.7 mmol/L (3.5-5.1) 3.9 mmol/L (3.5-5.1) 4.1 mmol/L (3.5-5.1) 4.4 mmol/L (3.5-5.1) Chloride Level 88 mmol/L (98-107) 96 mmol/L (98-107) 98 mmol/L (98-107) 100 mmol/L (98-107) Carbon Dioxide Level 24 mmol/L (21-32) 25 mmol/L (21-32) 24 mmol/L (21-32) 26 mmol/L (21-32) Anion Gap 16 (6-14) 9 (6-14) 10 (6-14) 7 (6-14) Blood Urea Nitrogen 59 mg/dL (8-26) 44 mg/dL (8-26) 35 mg/dL (8-26) 28 mg/dL (8-26) Creatinine 8.7 mg/dL (0.7-1.3) 5.9 mg/dL (0.7-1.3) 5.2 mg/dL (0.7-1.3) 4.2 mg/dL (0.7-1.3) Estimated GFR (Cockcroft-Gault) 7.2 11.3 13.1 16.7 Glucose Level 79 mg/dL (70-99) 100 mg/dL (70-99) 98 mg/dL (70-99) 111 mg/dL (70-99) Calcium Level 6.6 mg/dL (8.5-10.1) 7.0 mg/dL (8.5-10.1) 7.3 mg/dL (8.5-10.1) 7.4 mg/dL (8.5-10.1) Phosphorus Level 6.6 mg/dL (2.6-4.7) 4.1 mg/dL (2.6-4.7) 3.6 mg/dL (2.6-4.7) 3.1 mg/dL (2.6-4.7) Magnesium Level 1.9 mg/dL (1.8-2.4) 2.1 mg/dL (1.8-2.4) 2.2 mg/dL (1.8-2.4) Heparin Anti-Xa Act, Unfractionated 0.29 IU/mL (0.30-0.70) 0.34 IU/mL (0.30-0.70) 0.33 IU/mL (0.30-0.70) Test 09/15/18 21:45 09/16/18 06:00 White Blood Count 8.2 x10^3/uL (4.0-11.0) 6.8 x10^3/uL (4.0-11.0) Red Blood Count 3.52 x10^6/uL (4.30-5.70) 3.12 x10^6/uL (4.30-5.70) Hemoglobin 10.3 g/dL (13.0-17.5) 9.2 g/dL (13.0-17.5) Hematocrit 29.3 % (39.0-53.0) 26.2 % (39.0-53.0) Mean Corpuscular Volume 83 fL (79-100) 84 fL (79-100) Mean Corpuscular Hemoglobin 29 pg (25-35) 30 pg (25-35) Mean Corpuscular Hemoglobin Concent 35 g/dL (31-37) 35 g/dL (31-37) Red Cell Distribution Width 12.9 % (11.5-14.5) 13.0 % (11.5-14.5) Platelet Count 212 x10^3/uL (140-400) 182 x10^3/uL (140-400) Neutrophils (%) (Auto) 87 % (31-73) 77 % (31-73) Lymphocytes (%) (Auto) 6 % (24-48) 12 % (24-48) Monocytes (%) (Auto) 6 % (0-9) 8 % (0-9) Eosinophils (%) (Auto) 2 % (0-3) 3 % (0-3) Basophils (%) (Auto) 0 % (0-3) 1 % (0-3) Neutrophils # (Auto) 7.1 x10^3/uL (1.8-7.7) 5.3 x10^3/uL (1.8-7.7) Lymphocytes # (Auto) 0.5 x10^3/uL (1.0-4.8) 0.8 x10^3/uL (1.0-4.8) Monocytes # (Auto) 0.5 x10^3/uL (0.0-1.1) 0.6 x10^3/uL (0.0-1.1) Eosinophils # (Auto) 0.1 x10^3/uL (0.0-0.7) 0.2 x10^3/uL (0.0-0.7) Basophils # (Auto) 0.0 x10^3/uL (0.0-0.2) 0.0 x10^3/uL (0.0-0.2) Sodium Level 132 mmol/L (136-145) 133 mmol/L (136-145) Potassium Level 4.3 mmol/L (3.5-5.1) 3.9 mmol/L (3.5-5.1) Chloride Level 98 mmol/L (98-107) 99 mmol/L (98-107) Carbon Dioxide Level 23 mmol/L (21-32) 23 mmol/L (21-32) Anion Gap 11 (6-14) 11 (6-14) Blood Urea Nitrogen 21 mg/dL (8-26) 20 mg/dL (8-26) Creatinine 3.4 mg/dL (0.7-1.3) 3.7 mg/dL (0.7-1.3) Estimated GFR (Cockcroft-Gault) 21.4 19.4 Glucose Level 120 mg/dL (70-99) 101 mg/dL (70-99) Calcium Level 7.5 mg/dL (8.5-10.1) 7.9 mg/dL (8.5-10.1) Phosphorus Level 2.6 mg/dL (2.6-4.7) 2.8 mg/dL (2.6-4.7) Magnesium Level 2.3 mg/dL (1.8-2.4) 2.3 mg/dL (1.8-2.4) Heparin Anti-Xa Act, Unfractionated 0.29 IU/mL (0.30-0.70) Creatine Kinase 59761 U/L (39-308) Laboratory Tests Test 09/15/18 14:50 09/15/18 21:45 09/16/18 06:00 White Blood Count 8.0 x10^3/uL (4.0-11.0) 8.2 x10^3/uL (4.0-11.0) 6.8 x10^3/uL (4.0-11.0) Red Blood Count 3.77 x10^6/uL (4.30-5.70) 3.52 x10^6/uL (4.30-5.70) 3.12 x10^6/uL (4.30-5.70) Hemoglobin 11.0 g/dL (13.0-17.5) 10.3 g/dL (13.0-17.5) 9.2 g/dL (13.0-17.5) Hematocrit 31.3 % (39.0-53.0) 29.3 % (39.0-53.0) 26.2 % (39.0-53.0) Mean Corpuscular Volume 83 fL (79-100) 83 fL (79-100) 84 fL (79-100) Mean Corpuscular Hemoglobin 29 pg (25-35) 29 pg (25-35) 30 pg (25-35) Mean Corpuscular Hemoglobin Concent 35 g/dL (31-37) 35 g/dL (31-37) 35 g/dL (31-37) Red Cell Distribution Width 12.9 % (11.5-14.5) 12.9 % (11.5-14.5) 13.0 % (11.5-14.5) Platelet Count 196 x10^3/uL (140-400) 212 x10^3/uL (140-400) 182 x10^3/uL (140-400) Neutrophils (%) (Auto) 86 % (31-73) 87 % (31-73) 77 % (31-73) Lymphocytes (%) (Auto) 6 % (24-48) 6 % (24-48) 12 % (24-48) Monocytes (%) (Auto) 5 % (0-9) 6 % (0-9) 8 % (0-9) Eosinophils (%) (Auto) 2 % (0-3) 2 % (0-3) 3 % (0-3) Basophils (%) (Auto) 1 % (0-3) 0 % (0-3) 1 % (0-3) Neutrophils # (Auto) 6.9 x10^3/uL (1.8-7.7) 7.1 x10^3/uL (1.8-7.7) 5.3 x10^3/uL (1.8-7.7) Lymphocytes # (Auto) 0.5 x10^3/uL (1.0-4.8) 0.5 x10^3/uL (1.0-4.8) 0.8 x10^3/uL (1.0-4.8) Monocytes # (Auto) 0.4 x10^3/uL (0.0-1.1) 0.5 x10^3/uL (0.0-1.1) 0.6 x10^3/uL (0.0-1.1) Eosinophils # (Auto) 0.1 x10^3/uL (0.0-0.7) 0.1 x10^3/uL (0.0-0.7) 0.2 x10^3/uL (0.0-0.7) Basophils # (Auto) 0.1 x10^3/uL (0.0-0.2) 0.0 x10^3/uL (0.0-0.2) 0.0 x10^3/uL (0.0-0.2) Heparin Anti-Xa Act, Unfractionated 0.33 IU/mL (0.30-0.70) 0.29 IU/mL (0.30-0.70) Sodium Level 133 mmol/L (136-145) 132 mmol/L (136-145) 133 mmol/L (136-145) Potassium Level 4.4 mmol/L (3.5-5.1) 4.3 mmol/L (3.5-5.1) 3.9 mmol/L (3.5-5.1) Chloride Level 100 mmol/L (98-107) 98 mmol/L (98-107) 99 mmol/L (98-107) Carbon Dioxide Level 26 mmol/L (21-32) 23 mmol/L (21-32) 23 mmol/L (21-32) Anion Gap 7 (6-14) 11 (6-14) 11 (6-14) Blood Urea Nitrogen 28 mg/dL (8-26) 21 mg/dL (8-26) 20 mg/dL (8-26) Creatinine 4.2 mg/dL (0.7-1.3) 3.4 mg/dL (0.7-1.3) 3.7 mg/dL (0.7-1.3) Estimated GFR (Cockcroft-Gault) 16.7 21.4 19.4 Glucose Level 111 mg/dL (70-99) 120 mg/dL (70-99) 101 mg/dL (70-99) Calcium Level 7.4 mg/dL (8.5-10.1) 7.5 mg/dL (8.5-10.1) 7.9 mg/dL (8.5-10.1) Phosphorus Level 3.1 mg/dL (2.6-4.7) 2.6 mg/dL (2.6-4.7) 2.8 mg/dL (2.6-4.7) Magnesium Level 2.2 mg/dL (1.8-2.4) 2.3 mg/dL (1.8-2.4) 2.3 mg/dL (1.8-2.4) Creatine Kinase 06030 U/L (39-308) Microbiology 09/12/18 Blood Culture - Preliminary, Resulted NO GROWTH AFTER 4 DAYS 09/12/18 CSF Gram Stain - Final, Complete 09/11/18 Urine Culture - Final, Complete 09/11/18 Urine Culture Result 1 ([place]) - Final, Complete Medications Current Medications Morphine Sulfate (Morphine Sulfate) 4 mg 1X ONCE IV Last administered on 21:20; Start 09/11/18 at 21:30; Stop 09/11/18 at 21:31; Status DC Sodium Chloride 1,000 ml @ 1,000 mls/hr 1X ONCE IV Last administered on 09/11/18at 22:30; Start 09/11/18 at 22:30; Stop 09/11/18 at 23:29; Status DC Calcium Gluconate (Calcium Gluconate) 1,000 mg 1X ONCE IVP Last administered on 09/11/18 22:43; Start 09/11/18 at 23:00; Stop 09/11/18 at 23:01; Status DC Insulin Human Regular (HumuLIN R VIAL) 10 unit 1X ONCE IV Last administered on 09/11/18at 23:51; Start 09/11/18 at 23:00; Stop 09/11/18 at 23:01; Status DC Dextrose (Dextrose 50%-Water Syringe) 25 gm 1X ONCE IV Last administered on 09/11/18at 22:42; Start 09/11/18 at 23:00; Stop 09/11/18 at 23:01; Status DC Sodium Bicarbonate (Sodium Bicarb Adult 8.4% Syr) 50 meq 1X ONCE IV Last administered on 09/11/18 23:49; Start 09/11/18 at 23:00; Stop 09/11/18 at 23:01; Status DC Sodium Chloride 1,000 ml @ 1,000 mls/hr 1X ONCE IV Last administered on 09/11/18at 23:50; Start 09/11/18 at 23:00; Stop 09/11/18 at 23:59; Status DC Albuterol Sulfate (Ventolin Neb Soln) 10 mg 1X ONCE CONT NEB Last administered on 09/12/18at 00:30; Start 09/11/18 at 23:00; Stop 09/11/18 at 23:01; Status DC Ceftriaxone Sodium (Rocephin) 1 gm 1X ONCE IVP Last administered on 09/11/18 22:43; Start 09/11/18 at 23:00; Stop 09/11/18 at 23:01; Status DC Sodium Chloride 1,000 ml @ 1,000 mls/hr 1X ONCE IV Last administered on 09/12/18at 01:00; Start 09/12/18 at 01:00; Stop 09/12/18 at 01:59; Status DC Lorazepam (Ativan Inj) 0.5 mg PRN Q6HRS PRN IV ANXIETY / AGITATION Last administered on 09/12/18at 11:00; Start 09/12/18 at 01:15; Stop 09/13/18 at 08:48; Status DC Ondansetron HCl (Zofran) 4 mg PRN Q6HRS PRN IV NAUSEA/VOMITING 1ST CHOICE; Start 09/12/18 at 01:15; Stop 09/12/18 at 01:22; Status DC Sodium Chloride (Normal Saline Flush) 3 ml QSHIFT PRN IV AFTER MEDS AND BLOOD DRAWS; Start 09/12/18 at 01:15 Sodium Chloride 1,000 ml @ 175 mls/hr Q5H43M IV ; Start 09/12/18 at 01:08; Stop 09/12/18 at 01:23; Status DC Ondansetron HCl (Zofran) 4 mg PRN Q8HRS PRN IV NAUSEA/VOMITING 1ST CHOICE; Start 09/12/18 at 01:15; Stop 09/13/18 at 01:14; Status DC Sodium Chloride 1,000 ml @ 150 mls/hr Q6H40M IV ; Start 09/12/18 at 01:30; Stop 09/12/18 at 18:49; Status DC Morphine Sulfate (Morphine Sulfate) 4 mg PRN Q4HRS PRN IV SEVERE PAIN Last admi nistered on 09/16/18at 08:24; Start 09/12/18 at 09:00 Sodium Bicarbonate (Sodium Bicarb Adult 8.4% Syr) 100 meq 1X ONCE IV Last administered on 09/12/18at 10:02; Start 09/12/18 at 10:00; Stop 09/12/18 at 10:01; Status DC Sodium Chloride 1,000 ml @ 1,000 mls/hr 1X ONCE IV Last administered on 09/12/18at 09:56; Start 09/12/18 at 10:00; Stop 09/12/18 at 10:59; Status DC Lidocaine/Sodium Bicarbonate (Buffered Lidocaine 1%) 3 ml STK-MED ONCE .ROUTE ; Start 09/12/18 at 11:07; Stop 09/12/18 at 11:08; Status DC Calcium Gluconate (Calcium Gluconate) 2,000 mg 1X ONCE IVP Last administered on 09/12/18at 13:38; Start 09/12/18 at 12:00; Stop 09/12/18 at 12:01; Status DC Ceftriaxone Sodium (Rocephin) 1 gm Q24H IVP Last administered on 09/12/18at 12:49; Start 09/12/18 at 13:00; Stop 09/13/18 at 07:45; Status DC Silver Sulfadiazine (Silvadene) 1 elinor BID TP Last administered on 09/13/18at 10: 06; Start 09/12/18 at 13:00; Stop 09/13/18 at 15:04; Status DC Sodium Chloride 1,000 ml @ 1,000 mls/hr 1X ONCE IV Last administered on 09/12/18at 12:47; Start 09/12/18 at 12:45; Stop 09/12/18 at 13:44; Status DC Pantoprazole Sodium (Protonix) 40 mg DAILYAC PO ; Start 09/12/18 at 13:30; Stop 09/12/18 at 19:22; Status DC Polyethylene Glycol (miraLAX PACKET) 17 gm DAILY PO Last administered on 09/16/18at 08:24; Start 09/12/18 at 13:30 Lidocaine/Sodium Bicarbonate (Buffered Lidocaine 1%) 3 ml STK-MED ONCE .ROUTE ; Start 09/12/18 at 13:48; Stop 09/12/18 at 13:49; Status DC Haloperidol Lactate (Haldol Inj) 1 mg PRN Q8HRS PRN IVP AGITATION Last administered on 09/14/18at 07:56; Start 09/12/18 at 14:00 Lorazepam (Ativan Inj) 2 mg PRN Q2HRS PRN IV ANXIETY. Last administered on 09/16/18at 04:02; Start 09/12/18 at 14:00 Lidocaine/Sodium Bicarbonate (Buffered Lidocaine 1%) 6 ml 1X ONCE INJ ; Start 09/12/18 at 14:15; Stop 09/12/18 at 14:16; Status DC Dexmedetomidine HCl 200 mcg/ Sodium Chloride 50 ml @ 0 mls/hr CONT PRN IV PER PROTOCOL Last administered on 09/15/18at 10:28; Start 09/12/18 at 14:15 Sodium Chloride 500 ml @ 500 mls/hr 1X PRN PRN IV SEE COMMENTS; Start 09/12/18 at 14:15 Atropine Sulfate (ATROPINE 0.5mg SYRINGE) 0.5 mg PRN Q5MIN PRN IV SEE COMMENTS; Start 09/12/18 at 14:15 Sodium Chloride 1,000 ml @ 1,000 mls/hr Q1H PRN IV hypotension; Start 09/12/18 at 15:08; Stop 09/12/18 at 21:07; Status DC Diphenhydramine HCl (Benadryl) 25 mg 1X PRN PRN IV ITCHING; Start 09/12/18 at 15:15; Stop 09/13/18 at 11:19; Status DC Diphenhydramine HCl (Benadryl) 25 mg 1X PRN PRN IV ITCHING; Start 09/12/18 at 15:15; Stop 09/13/18 at 11:19; Status DC Sodium Chloride 1,000 ml @ 400 mls/hr Q2H30M PRN IV PATENCY; Start 09/12/18 at 15:08; Stop 09/13/18 at 03:07; Status DC Info (PHARMACY MONITORING -- do not chart) 1 each PRN DAILY PRN MC SEE COMMENTS; Start 09/12/18 at 15:15; Stop 09/13/18 at 11:18; Status DC Pantoprazole Sodium (PROTONIX VIAL for IV PUSH) 40 mg DAILYAC IVP Last administered on 09/16/18at 08:24; Start 09/13/18 at 07:30 Linezolid (Zyvox) 600 mg BID PO Last administered on 09/16/18at 08:24; Start 09/13/18 at 09:00 Ceftriaxone Sodium (Rocephin) 2 gm Q24H IVP Last administered on 09/15/18at 13:12; Start 09/13/18 at 13:00 Calcium Gluconate 2000 mg/Dextrose 120 ml @ 220 mls/hr 1X ONCE IV Last administered on 09/13/18at 10:05; Start 09/13/18 at 10:00; Stop 09/13/18 at 10:32; Status DC Sodium Chloride 1,000 ml @ 1,000 mls/hr Q1H PRN IV hypotension; Start 09/13/18 at 11:06; Stop 09/13/18 at 17:05; Status DC Diphenhydramine HCl (Benadryl) 25 mg 1X PRN PRN IV ITCHING; Start 09/13/18 at 11:15; Stop 09/14/18 at 11:14; Status DC Diphenhydramine HCl (Benadryl) 25 mg 1X PRN PRN IV ITCHING; Start 09/13/18 at 11:15; Stop 09/14/18 at 11:14; Status DC Sodium Chloride 1,000 ml @ 400 mls/hr Q2H30M PRN IV PATENCY; Start 09/13/18 at 11:06; Stop 09/13/18 at 23:05; Status DC Info (PHARMACY MONITORING -- do not chart) 1 each PRN DAILY PRN MC SEE COMMENTS; Start 09/13/18 at 11:15 Potassium Chloride 10 meq/ Calcium Chloride 12.5 meq/ Bicarbonate Dialysis Soln w/ out KCl 5,013.9286 ml @ 1,000 mls/hr Q5H1M IV ; Start 09/14/18 at 13:00; Status Cancel Potassium Chloride 20 meq/ Calcium Chloride 12.5 meq/ Bicarbonate Dialysis Soln w/ out KCl 5,018.9286 ml @ 1,500 mls/hr Q3H21M IV ; Start 09/14/18 at 13:00; Stop 09/14/18 at 13:00; Status DC Heparin Sodium (Porcine) (Heparin Sodium) 4,000 unit 1X ONCE IV Last administered on 09/14/18at 19:54; Start 09/14/18 at 12:00; Stop 09/14/18 at 12:11; Status DC Heparin Sodium/ Dextrose 500 ml @ 0 mls/hr CONT PRN IV SEE I/O RECORD Last administered on 09/15/18at 15:05; Start 09/14/18 at 12:00; Stop 09/16/18 at 08:03 ; Status DC Heparin Sodium (Porcine) (Heparin Sodium) 2,500 unit PRN Q6HRS PRN IV FOR UFH LEVEL LESS THAN 0.2; Start 09/14/18 at 12:00 Potassium Chloride 10 meq/ Calcium Chloride 12.5 meq/ Bicarbonate Dialysis Soln w/ out KCl 5,013.9286 ml @ 1,000 mls/hr Q5H1M IV ; Start 09/14/18 at 13:00; Stop 09/14/18 at 13:00; Status DC Potassium Chloride 10 meq/ Bicarbonate Dialysis Soln w/ out KCl 5,005 ml @ 1,000 mls/hr Q5H1M IV ; Start 09/14/18 at 13:00; Stop 09/14/18 at 13:00; Status DC Potassium Chloride 20 meq/ Bicarbonate Dialysis Soln w/ out KCl 5,010 ml @ 1,500 mls/hr Q3H21M IV ; Start 09/14/18 at 13:00; Stop 09/14/18 at 13:00; S tatus DC Potassium Chloride 10 meq/ Bicarbonate Dialysis Soln w/ out KCl 5,005 ml @ 1,500 mls/hr Q3H21M IV ; Start 09/14/18 at 13:00; Stop 09/14/18 at 13:00; Status DC Potassium Chloride 20 meq/ Bicarbonate Dialysis Soln w/ out KCl 5,010 ml @ 1,000 mls/hr Q5H1M IV Last administered on 09/15/18at 20:43; Start 09/14/18 at 13:00; Stop 09/16/18 at 08:03; Status DC Potassium Chloride 20 meq/ Bicarbonate Dialysis Soln w/ out KCl 5,010 ml @ 1,500 mls/hr Q3H21M IV ; Start 09/14/18 at 12:45; Stop 09/14/18 at 12:45; Status DC Potassium Chloride 40 meq/ Bicarbonate Dialysis Soln w/ out KCl 5,020 ml @ 1,500 mls/hr Q3H21M IV ; Start 09/14/18 at 13:00; Stop 09/14/18 at 13:10; Status DC Potassium Chloride 60 meq/ Bicarbonate Dialysis Soln w/ out KCl 5,030 ml @ 1,5 00 mls/hr Q3H22M IV ; Start 09/14/18 at 13:00; Stop 09/14/18 at 13:07; Status DC Potassium Chloride 30 meq/ Bicarbonate Dialysis Soln w/ out KCl 5,015 ml @ 1,500 mls/hr Q3H21M IV ; Start 09/14/18 at 13:15; Stop 09/14/18 at 18:00; Status DC Potassium Chloride 20 meq/ Bicarbonate Dialysis Soln w/ out KCl 5,010 ml @ 1,500 mls/hr Q3H21M IV Last administered on 09/14/18at 21:06; Start 09/14/18 at 13:10; Stop 09/14/18 at 18:00; Status DC Potassium Chloride 30 meq/ Bicarbonate Dialysis Soln w/ out KCl 5,015 ml @ 1,500 mls/hr Q3H21M IV ; Start 09/14/18 at 18:00; Stop 09/14/18 at 19:10; Status DC Potassium Chloride 20 meq/ Bicarbonate Dialysis Soln w/ out KCl 5,010 ml @ 1,500 mls/hr Q3H21M IV Last administered on 09/16/18at 00:15; Start 09/14/18 at 18:01; Stop 09/16/18 at 08:03; Status DC Potassium Chloride 20 meq/ Bicarbonate Dialysis Soln w/ out KCl 5,010 ml @ 1,500 mls/hr Q3H21M IV Last administered on 09/16/18at 00:18; Start 09/14/18 at 20:00; Stop 09/16/18 at 08:03; Status DC Active Scripts Active Reported Protonix (Pantoprazole Sodium) 20 Mg Tablet.dr 2 Tab PO DAILY Zyprexa (Olanzapine) 20 Mg Tablet 2 Tab PO QHS Buspirone Hcl 30 Mg Tablet 1 Tab PO BID Vitals/I & O Vital Sign - Last 24 Hours 09/15/18 09/15/18 09/15/18 09/15/18 11:00 12:00 12:00 13:00 Temp 97.0 97.0 Pulse 105 112 86 Resp 19 20 14 B/P (MAP) 148/80 (102) 137/79 (98) 118/65 (82) Pulse Ox 97 99 99 O2 Delivery Room Air Room Air Room Air Room Air 09/15/18 09/15/18 09/15/18 09/15/18 14:00 15:00 16:00 16:00 Temp 97.0 97.0 Pulse 82 86 98 Resp 13 16 20 B/P (MAP) 132/91 (105) 149/94 (112) 152/86 (108) Pulse Ox 98 98 97 O2 Delivery Room Air Room Air Room Air Room Air 09/15/18 09/15/18 09/15/18 09/15/18 17:00 18:00 19:00 20:00 Temp 98.8 98.8 Pulse 94 113 121 105 Resp 14 22 21 18 B/P (MAP) 141/94 (110) 158/92 (114) 172/95 (120) 157/96 (116) Pulse Ox 98 98 98 97 O2 Delivery Room Air Room Air Room Air Room Air 09/15/18 09/15/18 09/15/18 09/15/18 20:00 20:01 21:00 22:00 Pulse 107 114 Resp 22 19 19 B/P (MAP) 150/90 (110) 150/90 (110) Pulse Ox 97 97 98 O2 Delivery Room Air Room Air Room Air Room Air 09/15/18 09/16/18 09/16/18 09/16/18 23:00 00:00 00:00 00:11 Temp 99.1 99.1 Pulse 114 112 Resp 19 B/P (MAP) 167/100 (122) 138/78 (98) Pulse Ox 99 98 99 O2 Delivery Room Air Room Air Room Air Room Air 09/16/18 09/16/18 09/16/18 09/16/18 00:51 01:00 02:00 03:00 Pulse 97 103 106 Resp 16 18 20 B/P (MAP) 164/87 (112) 144/91 (108) 155/82 (106) Pulse Ox 98 95 O2 Delivery Room Air Room Air Room Air 09/16/18 09/16/18 09/16/18 09/16/18 04:00 04:00 04:02 04:32 Temp 99.5 99.5 Pulse 112 Resp 20 B/P (MAP) 167/98 (121) Pulse Ox 97 O2 Delivery Room Air Room Air Room Air 09/16/18 09/16/18 09/16/18 09/16/18 05:00 06:00 07:00 08:00 Temp 99.0 99.0 Pulse 120 109 120 110 Resp 18 19 19 16 B/P (MAP) 159/79 (105) 140/77 (98) 157/80 (105) 149/87 (107) Pulse Ox 98 94 O2 Delivery Room Air Room Air Room Air Room Air 09/16/18 09/16/18 09/16/18 09/16/18 08:00 08:24 08:54 09:00 Pulse 114 Resp 17 B/P (MAP) 161/91 (114) Pulse Ox 96 96 O2 Delivery Room Air Room Air Room Air Room Air 09/16/18 10:00 Pulse 117 Resp 23 B/P (MAP) 158/88 (111) Pulse Ox 97 O2 Delivery Room Air Intake and Output 0 09/15/18 09/15/18 09/16/18 14:59 22:59 06:59 Intake Total 424 ml 12704 ml 4581.1 ml Output Total 22 ml 7 ml 7 ml Balance 402 ml 38060 ml 4574.1 ml MARIAM SINGH MD Sep 16, 2018 10:28
--- NOTE | 2018-09-16 11:35 | NUR ---
Paged Dr. Lofton for stronger pain medication for severe back pain. Orders received for Oxycodone IR 5mg PO PRN Q4HRS. Per Carol Dang, okay for pt to move to [facility] if okay with Primary. Dr. Lofton notified and orders for transfer placed. Will do HD Monday.
[2018-09-16] MEDS: oxyCODONE IR 5 MG TABLET PO PRN ×3 (12:14→21:22)
[2018-09-16] MEDS: cefTRIAXone IV Push 2 GM VIAL. IVP SCH (12:14)
--- NOTE | 2018-09-16 13:38 | NUR ---
Pt moved to [facility] with friend Otilio in company. Otilio notified pt's parents via phone.
[2018-09-16] MEDS: GABAPENTIN 300 MG CAPSULE. PO SCH (21:21)
[2018-09-16] MEDS: LACTOBACILLUS RHAMNOSUS GG 1 CAPSULE. PO SCH (21:21)
--- NOTE | 2018-09-16 23:11 | NUR ---
Patients blood pressure 174/111 at approx 1900. Patient stating he is in pain and seemed to be having some anxiety (flopping in bed.) Pain and anxiety medication given. Rechecked blood pressure at 178/120. Dr. Richards notified. Orders for PRN blood pressure medication given if SBP greater than 180. Verbalized order back and clarified that he did not want me to treat the patient with his Blood pressure 178/120, and he verbalized back that I did not need to treat his blood pressure at this time.
[2018-09-16] MEDS ORDERED: LABETALOL 20 MG/4 ML DISP.SYRIN. IVP PRN (23:30)
[2018-09-17] MEDS: oxyCODONE IR 5 MG TABLET PO PRN ×4 (03:37→22:12)
[2018-09-17 03:40] VITALS: BP 184/107
[2018-09-17 03:52] LABS: BASO # 0.1 x10^3/uL (0.0-0.2); BASO % 1 % (0-3); EOS # 0.3 x10^3/uL (0.0-0.7); EOS % 3 % (0-3); HEMATOCRIT 27.8 % (39.0-53.0); HEMOGLOBIN 9.6 g/dL (13.0-17.5); LYMPH # 1.3 x10^3/uL (1.0-4.8); LYMPH % 15 % (24-48); MEAN CORPUSCULAR HEMOGLOBIN 29 pg (25-35); MEAN CORPUSCULAR HGB CONC 35 g/dL (31-37); MEAN CORPUSCULAR VOLUME 84 fL (79-100); MONO # 0.7 x10^3/uL (0.0-1.1); MONO % 8 % (0-9); NEUT # 6.3 x10^3/uL (1.8-7.7); NEUT % 73 % (31-73); PLATELET COUNT 210 x10^3/uL (140-400); RED CELL DISTRIBUTION WIDTH 13.1 % (11.5-14.5); WHITE BLOOD COUNT 8.6 x10^3/uL (4.0-11.0)
[2018-09-17 05:26] LABS: ALBUMIN 1.9 g/dL (3.4-5.0); ALBUMIN/GLOBULIN RATIO 0.6 (1.0-1.7); CALCIUM 8.8 mg/dL (8.5-10.1); CREATININE 5.6 mg/dL (0.7-1.3); POTASSIUM 3.9 mmol/L (3.5-5.1); TOTAL BILIRUBIN 0.5 mg/dL (0.2-1.0); TOTAL PROTEIN 5.2 g/dL (6.4-8.2)
[2018-09-17 07:57] VITALS: BP 180/100
--- NOTE | 2018-09-17 09:19 | PDOC ---
Infectious Disease Note Subjective Subjective Doing ok A little finger pain Denies F/C/N/V/D/SOA ROS ROS o/w neg Vital Sign Vital Signs Vital Signs Date Time Temp Pulse Resp B/P (MAP) Pulse Ox O2 Delivery O2 Flow Rate FiO2 09/17/18 07:57 97.7 90 18 180/100 (126) 97 Room Air 97.7 09/16/18 22:22 98.0 Physical Exam PHYSICAL EXAM GENERAL: In bed, NAD, coop EENT: Pupils equal, oral cavity clear NECK: Supple. LUNGS: Clear bilaterally. No wheezing. HEART: S1, S2, regular, tachy 108s ABDOMEN: Soft, nontender, BS present : Fernandez EXTREMITIES: Generalized trace edema, no cyanosis. Right index with min swelling. Lesions are stable - mild maceration CENTRAL NERVOUS SYSTEM: Alert, answering appropriately RIJ/HDC without signs of complications PIV Labs Lab Laboratory Tests Test 09/17/18 03:15 White Blood Count 8.6 x10^3/uL (4.0-11.0) Red Blood Count 3.30 x10^6/uL (4.30-5.70) Hemoglobin 9.6 g/dL (13.0-17.5) Hematocrit 27.8 % (39.0-53.0) Mean Corpuscular Volume 84 fL (79-100) Mean Corpuscular Hemoglobin 29 pg (25-35) Mean Corpuscular Hemoglobin Concent 35 g/dL (31-37) Red Cell Distribution Width 13.1 % (11.5-14.5) Platelet Count 210 x10^3/uL (140-400) Neutrophils (%) (Auto) 73 % (31-73) Lymphocytes (%) (Auto) 15 % (24-48) Monocytes (%) (Auto) 8 % (0-9) Eosinophils (%) (Auto) 3 % (0-3) Basophils (%) (Auto) 1 % (0-3) Neutrophils # (Auto) 6.3 x10^3/uL (1.8-7.7) Lymphocytes # (Auto) 1.3 x10^3/uL (1.0-4.8) Monocytes # (Auto) 0.7 x10^3/uL (0.0-1.1) Eosinophils # (Auto) 0.3 x10^3/uL (0.0-0.7) Basophils # (Auto) 0.1 x10^3/uL (0.0-0.2) Sodium Level 132 mmol/L (136-145) Potassium Level 3.9 mmol/L (3.5-5.1) Chloride Level 97 mmol/L (98-107) Carbon Dioxide Level 26 mmol/L (21-32) Anion Gap 9 (6-14) Blood Urea Nitrogen 27 mg/dL (8-26) Creatinine 5.6 mg/dL (0.7-1.3) Estimated GFR (Cockcroft-Gault) 12.0 BUN/Creatinine Ratio 5 (6-20) Glucose Level 95 mg/dL (70-99) Calcium Level 8.8 mg/dL (8.5-10.1) Total Bilirubin 0.5 mg/dL (0.2-1.0) Aspartate Amino Transf (AST/SGOT) 296 U/L (15-37) Alanine Aminotransferase (ALT/SGPT) 220 U/L (16-63) Alkaline Phosphatase 129 U/L (46-116) Creatine Kinase 66876 U/L (39-308) Total Protein 5.2 g/dL (6.4-8.2) Albumin 1.9 g/dL (3.4-5.0) Albumin/Globulin Ratio 0.6 (1.0-1.7) Micro Microbiology 09/12/18 Blood Culture - Final, Complete NO GROWTH AFTER 5 DAYS 09/12/18 CSF Gram Stain - Final, Complete 09/11/18 Urine Culture - Final, Complete 09/11/18 Urine Culture Result 1 ([place]) - Final, Complete Objective Assessment Right hand burn to index finger with cellulitis, superficial. No evidence of sinus tract. X ray neg - no I and D at this point per Ortho History of intravenous drug use Leukocytosis, likely reactive.resolved History of fall with rhabdomyolysis. CK >100,000 Hyponatremia, hyperkalemia, severe metabolic acidosis, acute kidney injury on CRRT Transaminitis. Gallbladder sludge on ultrasound. Encephalopathy - S/p LP 09/12 Methicillin-resistant Staphylococcus aureus screen positive. Bilateral lower extremity weakness, numbness and history of fall prior to admission. Urinary retention. Paresthesia. Abnormal T2 signal within the right greater than left paraspinal musculature and psoas, which can be seen with edema in these regions. Neurology and Neurosurgery consulted. Hematuria with occasional wbc's on urinalysis. Plan Plan of Care Continue Zyvox.(09/13) and d/c Rocephin (09/13) local wound care. Pictures reviewed with nursing Cultures neg to date Clinically better. D/w nursing FATOU EVERETT MD Sep 17, 2018 09:19
--- NOTE | 2018-09-17 09:26 | RAD ---
CT HEAD INDICATION: Weakness COMPARISON: None Available. Exposure: One or more of the following individualized dose reduction techniques were utilized for this examination: 1. Automated exposure control 2. Adjustment of the mA and/or kV according to patient size 3. Use of iterative reconstruction technique TECHNIQUE: 5 mm contiguous axial images were obtained from the skull base to the vertex in both bone and soft tissue algorithm. FINDINGS: No abnormal attenuation within the brain parenchyma. No evidence of acute intracranial hemorrhage. No extra-axial fluid collections. No mass effect or midline shift. Ventricular size is appropriate. Basal cisterns are patent. No fractures identified.Lucas-white differentiation is preserved.Globes and orbits are within normal limits. Paranasal sinuses and mastoid air cells are clear. IMPRESSION: No acute intracranial findings. Electronically signed by: Carlos Brower MD (09/17/2018 9:23 AM) [id number]
[2018-09-17] MEDS ORDERED: LABETALOL 20 MG/4 ML DISP.SYRIN. IVP PRN (09:30)
[2018-09-17] MEDS ORDERED: ACETAMINOPHEN 500 MG TABLET PO PRN (09:30)
[2018-09-17] MEDS: LIDOCAINE (700MG/PATCH) PATCH. TD SCH (10:00)
[2018-09-17] MEDS: LACTOBACILLUS RHAMNOSUS GG 1 CAPSULE. PO SCH ×2 (10:04→21:06)
[2018-09-17] MEDS: PANTOPRAZOLE IV PUSH 40 MG VIAL. IVP SCH (10:04)
[2018-09-17] MEDS: LINEZOLID 600 MG TABLET PO SCH ×2 (10:04→21:06)
[2018-09-17] MEDS: POLYETHYLENE GLYCOL 3350 17 GM PACKET. PO SCH (10:05)
--- NOTE | 2018-09-17 11:11 | PDOC ---
PULMONARY PROGRESS NOTES Subjective alert, no sob, cough, has low back pain, off precedex drip, crrt stopped 3 hrs ago, clotted line, hep gtt, Vitals Vital Signs Date Time Temp Pulse Resp B/P (MAP) Pulse Ox O2 Delivery O2 Flow Rate FiO2 09/17/18 08:51 18 Room Air 09/17/18 07:57 97.7 90 180/100 (126) 97 97.7 09/16/18 22:22 98.0 Comments ros as mentioned as above, discussed w rn, other sys otherwise neg General: No acute distress HEENT: Other (nc at perrl nose clear neck no lad no thyromegaly) Lungs: Clear Cardiovascular: S1, S2 Abdomen: Soft, Non-tender, Other (no mass) Extremities: Other (1+edema,) Skin: Warm Labs Laboratory Tests Test 09/15/18 14:50 09/15/18 21:45 09/16/18 06:00 09/17/18 03:15 White Blood Count 8.0 x10^3/uL (4.0-11.0) 8.2 x10^3/uL (4.0-11.0) 6.8 x10^3/uL (4.0-11.0) 8.6 x10^3/uL (4.0-11.0) Red Blood Count 3.77 x10^6/uL (4.30-5.70) 3.52 x10^6/uL (4.30-5.70) 3.12 x10^6/uL (4.30-5.70) 3.30 x10^6/uL (4.30-5.70) Hemoglobin 11.0 g/dL (13.0-17.5) 10.3 g/dL (13.0-17.5) 9.2 g/dL (13.0-17.5) 9.6 g/dL (13.0-17.5) Hematocrit 31.3 % (39.0-53.0) 29.3 % (39.0-53.0) 26.2 % (39.0-53.0) 27.8 % (39.0-53.0) Mean Corpuscular Volume 83 fL (79-100) 83 fL (79-100) 84 fL (79-100) 84 fL (79-100) Mean Corpuscular Hemoglobin 29 pg (25-35) 29 pg (25-35) 30 pg (25-35) 29 pg (25-35) Mean Corpuscular Hemoglobin Concent 35 g/dL (31-37) 35 g/dL (31-37) 35 g/dL (31-37) 35 g/dL (31-37) Red Cell Distribution Width 12.9 % (11.5-14.5) 12.9 % (11.5-14.5) 13.0 % (11.5-14.5) 13.1 % (11.5-14.5) Platelet Count 196 x10^3/uL (140-400) 212 x10^3/uL (140-400) 182 x10^3/uL (140-400) 210 x10^3/uL (140-400) Neutrophils (%) (Auto) 86 % (31-73) 87 % (31-73) 77 % (31-73) 73 % (31-73) Lymphocytes (%) (Auto) 6 % (24-48) 6 % (24-48) 12 % (24-48) 15 % (24-48) Monocytes (%) (Auto) 5 % (0-9) 6 % (0-9) 8 % (0-9) 8 % (0-9) Eosinophils (%) (Auto) 2 % (0-3) 2 % (0-3) 3 % (0-3) 3 % (0-3) Basophils (%) (Auto) 1 % (0-3) 0 % (0-3) 1 % (0-3) 1 % (0-3) Neutrophils # (Auto) 6.9 x10^3/uL (1.8-7.7) 7.1 x10^3/uL (1.8-7.7) 5.3 x10^3/uL (1.8-7.7) 6.3 x10^3/uL (1.8-7.7) Lymphocytes # (Auto) 0.5 x10^3/uL (1.0-4.8) 0.5 x10^3/uL (1.0-4.8) 0.8 x10^3/uL (1.0-4.8) 1.3 x10^3/uL (1.0-4.8) Monocytes # (Auto) 0.4 x10^3/uL (0.0-1.1) 0.5 x10^3/uL (0.0-1.1) 0.6 x10^3/uL (0.0-1.1) 0.7 x10^3/uL (0.0-1.1) Eosinophils # (Auto) 0.1 x10^3/uL (0.0-0.7) 0.1 x10^3/uL (0.0-0.7) 0.2 x10^3/uL (0.0-0.7) 0.3 x10^3/uL (0.0-0.7) Basophils # (Auto) 0.1 x10^3/uL (0.0-0.2) 0.0 x10^3/uL (0.0-0.2) 0.0 x10^3/uL (0.0-0.2) 0.1 x10^3/uL (0.0-0.2) Heparin Anti-Xa Act, Unfractionated 0.33 IU/mL (0.30-0.70) 0.29 IU/mL (0.30-0.70) Sodium Level 133 mmol/L (136-145) 132 mmol/L (136-145) 133 mmol/L (136-145) 132 mmol/L (136-145) Potassium Level 4.4 mmol/L (3.5-5.1) 4.3 mmol/L (3.5-5.1) 3.9 mmol/L (3.5-5.1) 3.9 mmol/L (3.5-5.1) Chloride Level 100 mmol/L (98-107) 98 mmol/L (98-107) 99 mmol/L (98-107) 97 mmol/L (98-107) Carbon Dioxide Level 26 mmol/L (21-32) 23 mmol/L (21-32) 23 mmol/L (21-32) 26 mmol/L (21-32) Anion Gap 7 (6-14) 11 (6-14) 11 (6-14) 9 (6-14) Blood Urea Nitrogen 28 mg/dL (8-26) 21 mg/dL (8-26) 20 mg/dL (8-26) 27 mg/dL (8-26) Creatinine 4.2 mg/dL (0.7-1.3) 3.4 mg/dL (0.7-1.3) 3.7 mg/dL (0.7-1.3) 5.6 mg/dL (0.7-1.3) Estimated GFR (Cockcroft-Gault) 16.7 21.4 19.4 12.0 Glucose Level 111 mg/dL (70-99) 120 mg/dL (70-99) 101 mg/dL (70-99) 95 mg/dL (70-99) Calcium Level 7.4 mg/dL (8.5-10.1) 7.5 mg/dL (8.5-10.1) 7.9 mg/dL (8.5-10.1) 8.8 mg/dL (8.5-10.1) Phosphorus Level 3.1 mg/dL (2.6-4.7) 2.6 mg/dL (2.6-4.7) 2.8 mg/dL (2.6-4.7) Magnesium Level 2.2 mg/dL (1.8-2.4) 2.3 mg/dL (1.8-2.4) 2.3 mg/dL (1.8-2.4) Creatine Kinase 61001 U/L (39-308) 06180 U/L (39-308) BUN/Creatinine Ratio 5 (6-20) Total Bilirubin 0.5 mg/dL (0.2-1.0) Aspartate Amino Transf (AST/SGOT) 296 U/L (15-37) Alanine Aminotransferase (ALT/SGPT) 220 U/L (16-63) Alkaline Phosphatase 129 U/L (46-116) Total Protein 5.2 g/dL (6.4-8.2) Albumin 1.9 g/dL (3.4-5.0) Albumin/Globulin Ratio 0.6 (1.0-1.7) Laboratory Tests Test 09/17/18 03:15 White Blood Count 8.6 x10^3/uL (4.0-11.0) Red Blood Count 3.30 x10^6/uL (4.30-5.70) Hemoglobin 9.6 g/dL (13.0-17.5) Hematocrit 27.8 % (39.0-53.0) Mean Corpuscular Volume 84 fL (79-100) Mean Corpuscular Hemoglobin 29 pg (25-35) Mean Corpuscular Hemoglobin Concent 35 g/dL (31-37) Red Cell Distribution Width 13.1 % (11.5-14.5) Platelet Count 210 x10^3/uL (140-400) Neutrophils (%) (Auto) 73 % (31-73) Lymphocytes (%) (Auto) 15 % (24-48) Monocytes (%) (Auto) 8 % (0-9) Eosinophils (%) (Auto) 3 % (0-3) Basophils (%) (Auto) 1 % (0-3) Neutrophils # (Auto) 6.3 x10^3/uL (1.8-7.7) Lymphocytes # (Auto) 1.3 x10^3/uL (1.0-4.8) Monocytes # (Auto) 0.7 x10^3/uL (0.0-1.1) Eosinophils # (Auto) 0.3 x10^3/uL (0.0-0.7) Basophils # (Auto) 0.1 x10^3/uL (0.0-0.2) Sodium Level 132 mmol/L (136-145) Potassium Level 3.9 mmol/L (3.5-5.1) Chloride Level 97 mmol/L (98-107) Carbon Dioxide Level 26 mmol/L (21-32) Anion Gap 9 (6-14) Blood Urea Nitrogen 27 mg/dL (8-26) Creatinine 5.6 mg/dL (0.7-1.3) Estimated GFR (Cockcroft-Gault) 12.0 BUN/Creatinine Ratio 5 (6-20) Glucose Level 95 mg/dL (70-99) Calcium Level 8.8 mg/dL (8.5-10.1) Total Bilirubin 0.5 mg/dL (0.2-1.0) Aspartate Amino Transf (AST/SGOT) 296 U/L (15-37) Alanine Aminotransferase (ALT/SGPT) 220 U/L (16-63) Alkaline Phosphatase 129 U/L (46-116) Creatine Kinase 52571 U/L (39-308) Total Protein 5.2 g/dL (6.4-8.2) Albumin 1.9 g/dL (3.4-5.0) Albumin/Globulin Ratio 0.6 (1.0-1.7) Medications Active Scripts Medications Dose Route/Sig Max Daily Dose Days Date Category Protonix (Pantoprazole Sodium) 20 Mg Tablet.dr 2 Tab PO DAILY 09/12/18 Reported Zyprexa (Olanzapine) 20 Mg Tablet 2 Tab PO QHS 09/12/18 Reported Buspirone Hcl 30 Mg Tablet 1 Tab PO BID 09/12/18 Reported Comments 09/16, cxr reviewed increased vm Impression . 1. Status post fall with acute rhabdomyolysis with markedly high CPKs and acute renal failure. 2. Acute kidney injury secondary to rhabdomyolysis. 3. Severe metabolic acidosis secondary to acute kidney injury. Clinically, less likely sepsis. Lactic acid is 1.1, improved MA 4. Hyponatremia.improving 5. Moderate protein-calorie malnutrition. 6. Leukocytosis, likely reactive. 7. Status post fall with abnormal thoracic MRI. Neurosurgery following. 8. Abnormal liver function test secondary to hypoperfusion and rhabdomyolysis. 9. Hypocalcemia.improving Plan . 1. s/p fluid resuscitation, was on CRRT 2. Follow Renal's recommendation. 3. prn bicarbonate. 4. Monitor sodium level. improving 5. Follow Neurology and Neurosurgery's recommendation. 6. Continue empiric antibiotic, per id 7. Follow CPKs., trending down 8. Correct calcium and follow the levels.improving 9. chest x-ray, reviewed 09/16, not much to add 10. avoid oversedation Discussed with RN will sign off EITAN HAGAN MD Sep 17, 2018 11:11
[2018-09-17] MEDS ORDERED: IV NORMAL SALINE 1000ML BAG 1,000 ML IV PRN ×2 (11:26)
[2018-09-17] MEDS ORDERED: ALBUMIN HUMAN 25% 200 ML IV PRN (11:30)
[2018-09-17] MEDS ORDERED: DIALYSIS PATIENT. MC PRN ×2 (11:30)
[2018-09-17] MEDS ORDERED: 0.9 % SODIUM CHLORIDE 10 ML DISP.SYRIN. IV PRN ×2 (11:30)
[2018-09-17 11:34] VITALS: BP 158/96
--- NOTE | 2018-09-17 11:34 | NUR ---
AMBAR following pt. AMBAR phoned [facility] team for assessment and evaluation for meth use. Will continue to follow. Addendum: 09/17/18 at 1300 by JADEN VILLALTA Pt seen by Radha from [facility] team and is provided with OP resources. Pt agreeable to follow up with [facility] walk in clinic to help with mental health dxs but declined to schedule an appointment with [facility]. Pt is provided with community resources.
--- NOTE | 2018-09-17 11:47 | PDOC ---
SUBJECTIVE ROS No acute events overnight OBJECTIVE Vital Signs Vital Signs Date Time Temp Pulse Resp B/P (MAP) Pulse Ox O2 Delivery O2 Flow Rate FiO2 09/17/18 08:51 18 Room Air 09/17/18 07:57 97.7 90 180/100 (126) 97 97.7 09/16/18 22:22 98.0 I & 0 Intake and Output 09/17/18 07:00 Intake Total 634 ml Output Total 194 ml Balance 440 ml Intake Oral 568 ml IV Total 66 ml Output Urine Total 194 ml PHYSICAL EXAM Physical Exam GENERAL: In chair, NAD, EENT: OM moist NECK: Supple. LUNGS: Clear bilaterally. No wheezing. HEART: S1, S2, regular, ABDOMEN: Soft, nontender, BS present : Fernandez EXTREMITIES: Generalized trace edema, NEURO: Alert, answering appropriately RIJ/HDC DIAGNOSIS/ASSESSMENT Assessment & Plan CARO - ATN2/2 Rhabdo , Meth use Urinary retention at Presentation,Anuric now Requiring HD - 1 st Tx 09/12 ,CRRT x 1 Seen on HD, tolerating well, continue as ordered, Abhishek Silverman Rhabdo- CPK>100,000 at presentation Hyperkalemia- Normal K Hyponatremia- stable, mildly low Severe Metabolic acidosis- 2/2 all above Resolved Transaminitis - Improving LFT's Hypocalcemia- severe 2/2 Rhabdo Replace cautiously and Monitor closely for Hypercalcemia during recovery phase Discussed with RN COMMENT/RELEVANT DATA Meds Current Medications Medications (Trade) Dose Ordered Sig/Mirela Start Time Stop Time Status Last Admin Dose Admin Acetaminophen (Tylenol) 500 mg PRN Q6HRS PRN 09/17/18 09:30 Albumin Human 200 ml @ 200 mls/hr 1X PRN PRN 09/17/18 11:30 09/17/18 17:29 Albuterol Sulfate (Ventolin Neb Soln) 10 mg 1X ONCE 09/11/18 23:00 09/11/18 23:01 DC 09/12/18 00:30 10 MG Atropine Sulfate (ATROPINE 0.5mg SYRINGE) 0.5 mg PRN Q5MIN PRN 09/12/18 14:15 Calcium Gluconate (Calcium Gluconate) 2,000 mg 1X ONCE 09/12/18 12:00 09/12/18 12:01 DC 09/12/18 13:38 2,000 MG Calcium Gluconate 2000 mg/Dextrose 120 ml @ 220 mls/hr 1X ONCE 09/13/18 10:00 09/13/18 10:32 DC 09/13/18 10:05 220 MLS/HR Ceftriaxone Sodium (Rocephin) 2 gm Q24H 09/13/18 13:00 09/17/18 10:06 DC 09/16/18 12:14 2 GM Dexmedetomidine HCl 200 mcg/ Sodium Chloride 50 ml @ 0 mls/hr CONT PRN 09/12/18 14:15 09/17/18 10:17 DC 09/15/18 10:28 12.6 MLS/HR Dextrose (Dextrose 50%-Water Syringe) 25 gm 1X ONCE 09/11/18 23:00 09/11/18 23:01 DC 09/11/18 22:42 25 GM Diphenhydramine HCl (Benadryl) 25 mg 1X PRN PRN 09/13/18 11:15 09/14/18 11:14 DC Gabapentin (Neurontin) 300 mg QHS 09/16/18 21:00 09/16/18 21:21 300 MG Haloperidol Lactate (Haldol Inj) 1 mg PRN Q8HRS PRN 09/12/18 14:00 09/14/18 07:56 1 MG Heparin Sodium (Porcine) (Heparin Sodium) 2,500 unit PRN Q6HRS PRN 09/14/18 12:00 Heparin Sodium/ Dextrose 500 ml @ 0 mls/hr CONT PRN 09/14/18 12:00 09/16/18 08:03 DC 09/15/18 15:05 28.3 MLS/HR Info (PHARMACY MONITORING -- do not chart) 1 each PRN DAILY PRN 09/17/18 11:30 Insulin Human Regular (HumuLIN R VIAL) 10 unit 1X ONCE 09/11/18 23:00 09/11/18 23:01 DC 09/11/18 23:51 10 UNIT Labetalol HCl (Normodyne Iv Push) 20 mg PRN Q4HRS PRN 09/17/18 09:30 Lactobacillus Rhamnosus (Culturelle) 1 cap BID 09/16/18 21:00 09/17/18 10:04 1 CAP Lidocaine (Lidoderm) 1 patch DAILY 09/17/18 10:00 Lidocaine/Sodium Bicarbonate (Buffered Lidocaine 1%) 6 ml 1X ONCE 09/12/18 14:15 09/12/18 14:16 DC Linezolid (Zyvox) 600 mg BID 09/13/18 09:00 09/17/18 10:04 600 MG Lorazepam (Ativan Inj) 1 mg PRN Q8HRS PRN 09/16/18 16:00 Miscellaneous (Lidoderm Patch Removal) 1 ea QHS 09/17/18 21:00 Morphine Sulfate (Morphine Sulfate) 4 mg PRN Q4HRS PRN 09/12/18 09:00 09/16/18 08:24 4 MG Ondansetron HCl (Zofran) 4 mg PRN Q6HRS PRN 09/17/18 09:30 Oxycodone HCl (Roxicodone) 5 mg PRN Q4HRS PRN 09/16/18 11:45 09/17/18 07:51 5 MG Pantoprazole Sodium (PROTONIX VIAL for IV PUSH) 40 mg DAILYAC 09/13/18 07:30 09/17/18 10:04 40 MG Pantoprazole Sodium (Protonix) 40 mg DAILYAC 09/12/18 13:30 09/12/18 19:22 DC Polyethylene Glycol (miraLAX PACKET) 17 gm DAILY 09/12/18 13:30 09/17/18 10:05 17 GM Potassium Chloride 10 meq/ Bicarbonate Dialysis Soln w/ out KCl 5,005 ml @ 1,500 mls/hr Q3H21M 09/14/18 13:00 09/14/18 13:00 DC Potassium Chloride 10 meq/ Calcium Chloride 12.5 meq/ Bicarbonate Dialysis Soln w/ out KCl 5,013.9286 ml @ 1,000 mls/hr Q5H1M 09/14/18 13:00 09/14/18 13:00 DC Potassium Chloride 20 meq/ Bicarbonate Dialysis Soln w/ out KCl 5,010 ml @ 1,500 mls/hr Q3H21M 09/14/18 20:00 09/16/18 08:03 DC 09/16/18 00:18 1,500 MLS/HR Potassium Chloride 20 meq/ Calcium Chloride 12.5 meq/ Bicarbonate Dialysis Soln w/ out KCl 5,018.9286 ml @ 1,500 mls/hr Q3H21M 09/14/18 13:00 09/14/18 13:00 DC Potassium Chloride 30 meq/ Bicarbonate Dialysis Soln w/ out KCl 5,015 ml @ 1,500 mls/hr Q3H21M 09/14/18 18:00 09/14/18 19:10 DC Potassium Chloride 40 meq/ Bicarbonate Dialysis Soln w/ out KCl 5,020 ml @ 1,500 mls/hr Q3H21M 09/14/18 13:00 09/14/18 13:10 DC Potassium Chloride 60 meq/ Bicarbonate Dialysis Soln w/ out KCl 5,030 ml @ 1,500 mls/hr Q3H22M 09/14/18 13:00 09/14/18 13:07 DC Silver Sulfadiazine (Silvadene) 1 elinor BID 09/12/18 13:00 09/13/18 15:04 DC 09/13/18 10:06 1 ELINOR Sodium Bicarbonate (Sodium Bicarb Adult 8.4% Syr) 100 meq 1X ONCE 09/12/18 10:00 09/12/18 10:01 DC 09/12/18 10:02 100 MEQ Sodium Chloride 1,000 ml @ 400 mls/hr Q2H30M PRN 09/17/18 11:26 09/17/18 23:25 Sodium Chloride (Normal Saline Flush) 10 ml 1X PRN PRN 09/17/18 11:30 09/18/18 11:29 Lab Laboratory Tests Test 09/17/18 03:15 White Blood Count 8.6 x10^3/uL (4.0-11.0) Red Blood Count 3.30 x10^6/uL (4.30-5.70) Hemoglobin 9.6 g/dL (13.0-17.5) Hematocrit 27.8 % (39.0-53.0) Mean Corpuscular Volume 84 fL (79-100) Mean Corpuscular Hemoglobin 29 pg (25-35) Mean Corpuscular Hemoglobin Concent 35 g/dL (31-37) Red Cell Distribution Width 13.1 % (11.5-14.5) Platelet Count 210 x10^3/uL (140-400) Neutrophils (%) (Auto) 73 % (31-73) Lymphocytes (%) (Auto) 15 % (24-48) Monocytes (%) (Auto) 8 % (0-9) Eosinophils (%) (Auto) 3 % (0-3) Basophils (%) (Auto) 1 % (0-3) Neutrophils # (Auto) 6.3 x10^3/uL (1.8-7.7) Lymphocytes # (Auto) 1.3 x10^3/uL (1.0-4.8) Monocytes # (Auto) 0.7 x10^3/uL (0.0-1.1) Eosinophils # (Auto) 0.3 x10^3/uL (0.0-0.7) Basophils # (Auto) 0.1 x10^3/uL (0.0-0.2) Sodium Level 132 mmol/L (136-145) Potassium Level 3.9 mmol/L (3.5-5.1) Chloride Level 97 mmol/L (98-107) Carbon Dioxide Level 26 mmol/L (21-32) Anion Gap 9 (6-14) Blood Urea Nitrogen 27 mg/dL (8-26) Creatinine 5.6 mg/dL (0.7-1.3) Estimated GFR (Cockcroft-Gault) 12.0 BUN/Creatinine Ratio 5 (6-20) Glucose Level 95 mg/dL (70-99) Calcium Level 8.8 mg/dL (8.5-10.1) Total Bilirubin 0.5 mg/dL (0.2-1.0) Aspartate Amino Transf (AST/SGOT) 296 U/L (15-37) Alanine Aminotransferase (ALT/SGPT) 220 U/L (16-63) Alkaline Phosphatase 129 U/L (46-116) Creatine Kinase 27020 U/L (39-308) Total Protein 5.2 g/dL (6.4-8.2) Albumin 1.9 g/dL (3.4-5.0) Albumin/Globulin Ratio 0.6 (1.0-1.7) Results All relevant outside records, renal labs, imaging studies, telemetry/EKG's were reviewed. LAVONNE RODAS MD Sep 17, 2018 11:47
--- NOTE | 2018-09-17 11:53 | PDOC ---
Subjective: Subjective: "I'm okay." Objective: Vital Signs: Vital Signs Date Time Temp Pulse Resp B/P (MAP) Pulse Ox O2 Delivery O2 Flow Rate FiO2 09/17/18 11:34 97.7 99 18 158/96 (116) 98 Room Air 97.7 09/16/18 22:22 98.0 Labs: Laboratory Tests Test 09/17/18 03:15 White Blood Count 8.6 x10^3/uL Red Blood Count 3.30 x10^6/uL Hemoglobin 9.6 g/dL Hematocrit 27.8 % Mean Corpuscular Volume 84 fL Mean Corpuscular Hemoglobin 29 pg Mean Corpuscular Hemoglobin Concent 35 g/dL Red Cell Distribution Width 13.1 % Platelet Count 210 x10^3/uL Neutrophils (%) (Auto) 73 % Lymphocytes (%) (Auto) 15 % Monocytes (%) (Auto) 8 % Eosinophils (%) (Auto) 3 % Basophils (%) (Auto) 1 % Neutrophils # (Auto) 6.3 x10^3/uL Lymphocytes # (Auto) 1.3 x10^3/uL Monocytes # (Auto) 0.7 x10^3/uL Eosinophils # (Auto) 0.3 x10^3/uL Basophils # (Auto) 0.1 x10^3/uL Sodium Level 132 mmol/L Potassium Level 3.9 mmol/L Chloride Level 97 mmol/L Carbon Dioxide Level 26 mmol/L Anion Gap 9 Blood Urea Nitrogen 27 mg/dL Creatinine 5.6 mg/dL Estimated GFR (Cockcroft-Gault) 12.0 BUN/Creatinine Ratio 5 Glucose Level 95 mg/dL Calcium Level 8.8 mg/dL Total Bilirubin 0.5 mg/dL Aspartate Amino Transf (AST/SGOT) 296 U/L Alanine Aminotransferase (ALT/SGPT) 220 U/L Alkaline Phosphatase 129 U/L Creatine Kinase 09921 U/L Total Protein 5.2 g/dL Albumin 1.9 g/dL Albumin/Globulin Ratio 0.6 ANAEROBIC-AEROBIC CULTURE PENDING ANAEROBIC RES 1 PENDING AEROBIC CULT Preliminary Preliminary report AEROBIC RES 1 Preliminary Comment No growth in 36 - 48 hours. GRAM STAIN Final Final report GRAM STAIN RES 1 Final Comment No white blood cells seen. GRAM STAIN RES 2 Final No organisms seen BLOOD CULTURE Final NO GROWTH AFTER 5 DAYS Imaging: Head CT 09/17 IMPRESSION: No acute intracranial findings. PE: GEN: NAD LUNGS: CTAB HEART: RRR ABD: non-tender NEURO/PSYCH: drowsy A/P: Transaminitis - AST and ALT better, AP mildly elevated Rhabdo, CARO, +meth HTN, right hand burn -- PO PPI if eating. LARRY HARDY Sep 17, 2018 11:53
--- NOTE | 2018-09-17 12:19 | PDOC ---
PROGRESS NOTES Chief Complaint Chief Complaint ? ESRD-initiation of CRRT Hypotension Hepatorenal syndrome Elevated troponin in the background of sepsis UTI Methamphetamine abuse Metabolic encephalopathy etoh drinker Sepsis with hypotension MOD to sever PCM Oliguric renal failure Accelerated hypertension History of Present Illness History of Present Illness Off-and-on confusion, knows where he is today Maintain Fernandez catheter per renal, still oliguric Has a right temporary dialysis catheter Underwent CRRT few sessions in this admission Oliguric as per RN Blood pressure on the high side Back pain today On Zyvox and Rocephin per ID working with PT.OT - some weakness PLAN: Please give the labetalol when necessary Continue Zyvox Rocephin per ID Dialysis per renal Unsure if this will be a permanent HD or outpatient setting set up,-patient is self-pay Lidoderm patch for the back dw R at bedside Vitals Vitals Vital Signs Date Time Temp Pulse Resp B/P (MAP) Pulse Ox O2 Delivery O2 Flow Rate FiO2 09/17/18 11:34 97.7 99 18 158/96 (116) 98 Room Air 97.7 09/16/18 22:22 98.0 Physical Exam Physical Exam GENERAL: In bed, NAD, coop EENT: Pupils equal, oral cavity clear NECK: Supple. LUNGS: Clear bilaterally. No wheezing. HEART: S1, S2, regular, tachy 108s ABDOMEN: Soft, nontender, BS present : Fernandez EXTREMITIES: Generalized trace edema, no cyanosis. Right index with min swelling. Lesions are stable - mild maceration CENTRAL NERVOUS SYSTEM: Alert, answering appropriately RIJ/HDC without signs of complications PIV General: Oriented X3, Cooperative, mild distress Heart: Regular rate, Normal S1, No murmurs Lungs: Clear Abdomen: Normal bowel sounds, Soft, No hepatosplenomegaly, Other (obese, no fluid wave) Extremities: No clubbing, No cyanosis, No edema, Other (burn to right index finger APPEARS OLD associated cellulitis) Labs LABS Laboratory Tests Test 09/17/18 03:15 White Blood Count 8.6 x10^3/uL (4.0-11.0) Red Blood Count 3.30 x10^6/uL (4.30-5.70) Hemoglobin 9.6 g/dL (13.0-17.5) Hematocrit 27.8 % (39.0-53.0) Mean Corpuscular Volume 84 fL (79-100) Mean Corpuscular Hemoglobin 29 pg (25-35) Mean Corpuscular Hemoglobin Concent 35 g/dL (31-37) Red Cell Distribution Width 13.1 % (11.5-14.5) Platelet Count 210 x10^3/uL (140-400) Neutrophils (%) (Auto) 73 % (31-73) Lymphocytes (%) (Auto) 15 % (24-48) Monocytes (%) (Auto) 8 % (0-9) Eosinophils (%) (Auto) 3 % (0-3) Basophils (%) (Auto) 1 % (0-3) Neutrophils # (Auto) 6.3 x10^3/uL (1.8-7.7) Lymphocytes # (Auto) 1.3 x10^3/uL (1.0-4.8) Monocytes # (Auto) 0.7 x10^3/uL (0.0-1.1) Eosinophils # (Auto) 0.3 x10^3/uL (0.0-0.7) Basophils # (Auto) 0.1 x10^3/uL (0.0-0.2) Sodium Level 132 mmol/L (136-145) Potassium Level 3.9 mmol/L (3.5-5.1) Chloride Level 97 mmol/L (98-107) Carbon Dioxide Level 26 mmol/L (21-32) Anion Gap 9 (6-14) Blood Urea Nitrogen 27 mg/dL (8-26) Creatinine 5.6 mg/dL (0.7-1.3) Estimated GFR (Cockcroft-Gault) 12.0 BUN/Creatinine Ratio 5 (6-20) Glucose Level 95 mg/dL (70-99) Calcium Level 8.8 mg/dL (8.5-10.1) Total Bilirubin 0.5 mg/dL (0.2-1.0) Aspartate Amino Transf (AST/SGOT) 296 U/L (15-37) Alanine Aminotransferase (ALT/SGPT) 220 U/L (16-63) Alkaline Phosphatase 129 U/L (46-116) Creatine Kinase 78764 U/L (39-308) Total Protein 5.2 g/dL (6.4-8.2) Albumin 1.9 g/dL (3.4-5.0) Albumin/Globulin Ratio 0.6 (1.0-1.7) Review of Systems Review of Systems Weak, oliguria, the rest of ROS 14 point negative Assessment and Plan Assessmemt and Plan Problems Medical Problems: (1) Elevated troponin Status: Acute (2) Hepatorenal syndrome Status: Acute (3) Hyperkalemia Status: Acute (4) Hyponatremia Status: Acute (5) Methamphetamine abuse Status: Acute (6) Neurological complaint Status: Acute (7) Rhabdomyolysis Status: Acute (8) Urinary retention Status: Acute (9) Urinary tract infection Status: Acute Comment Review of Relevant I have reviewed the following items ashlie (where applicable) has been applied. Labs Laboratory Tests Test 09/15/18 14:50 09/15/18 21:45 09/16/18 06:00 09/17/18 03:15 White Blood Count 8.0 x10^3/uL (4.0-11.0) 8.2 x10^3/uL (4.0-11.0) 6.8 x10^3/uL (4.0-11.0) 8.6 x10^3/uL (4.0-11.0) Red Blood Count 3.77 x10^6/uL (4.30-5.70) 3.52 x10^6/uL (4.30-5.70) 3.12 x10^6/uL (4.30-5.70) 3.30 x10^6/uL (4.30-5.70) Hemoglobin 11.0 g/dL (13.0-17.5) 10.3 g/dL (13.0-17.5) 9.2 g/dL (13.0-17.5) 9.6 g/dL (13.0-17.5) Hematocrit 31.3 % (39.0-53.0) 29.3 % (39.0-53.0) 26.2 % (39.0-53.0) 27.8 % (39.0-53.0) Mean Corpuscular Volume 83 fL (79-100) 83 fL (79-100) 84 fL (79-100) 84 fL (79-100) Mean Corpuscular Hemoglobin 29 pg (25-35) 29 pg (25-35) 30 pg (25-35) 29 pg (25-35) Mean Corpuscular Hemoglobin Concent 35 g/dL (31-37) 35 g/dL (31-37) 35 g/dL (31-37) 35 g/dL (31-37) Red Cell Distribution Width 12.9 % (11.5-14.5) 12.9 % (11.5-14.5) 13.0 % (11.5-14.5) 13.1 % (11.5-14.5) Platelet Count 196 x10^3/uL (140-400) 212 x10^3/uL (140-400) 182 x10^3/uL (140-400) 210 x10^3/uL (140-400) Neutrophils (%) (Auto) 86 % (31-73) 87 % (31-73) 77 % (31-73) 73 % (31-73) Lymphocytes (%) (Auto) 6 % (24-48) 6 % (24-48) 12 % (24-48) 15 % (24-48) Monocytes (%) (Auto) 5 % (0-9) 6 % (0-9) 8 % (0-9) 8 % (0-9) Eosinophils (%) (Auto) 2 % (0-3) 2 % (0-3) 3 % (0-3) 3 % (0-3) Basophils (%) (Auto) 1 % (0-3) 0 % (0-3) 1 % (0-3) 1 % (0-3) Neutrophils # (Auto) 6.9 x10^3/uL (1.8-7.7) 7.1 x10^3/uL (1.8-7.7) 5.3 x10^3/uL (1.8-7.7) 6.3 x10^3/uL (1.8-7.7) Lymphocytes # (Auto) 0.5 x10^3/uL (1.0-4.8) 0.5 x10^3/uL (1.0-4.8) 0.8 x10^3/uL (1.0-4.8) 1.3 x10^3/uL (1.0-4.8) Monocytes # (Auto) 0.4 x10^3/uL (0.0-1.1) 0.5 x10^3/uL (0.0-1.1) 0.6 x10^3/uL (0.0-1.1) 0.7 x10^3/uL (0.0-1.1) Eosinophils # (Auto) 0.1 x10^3/uL (0.0-0.7) 0.1 x10^3/uL (0.0-0.7) 0.2 x10^3/uL (0.0-0.7) 0.3 x10^3/uL (0.0-0.7) Basophils # (Auto) 0.1 x10^3/uL (0.0-0.2) 0.0 x10^3/uL (0.0-0.2) 0.0 x10^3/uL (0.0-0.2) 0.1 x10^3/uL (0.0-0.2) Heparin Anti-Xa Act, Unfractionated 0.33 IU/mL (0.30-0.70) 0.29 IU/mL (0.30-0.70) Sodium Level 133 mmol/L (136-145) 132 mmol/L (136-145) 133 mmol/L (136-145) 132 mmol/L (136-145) Potassium Level 4.4 mmol/L (3.5-5.1) 4.3 mmol/L (3.5-5.1) 3.9 mmol/L (3.5-5.1) 3.9 mmol/L (3.5-5.1) Chloride Level 100 mmol/L (98-107) 98 mmol/L (98-107) 99 mmol/L (98-107) 97 mmol/L (98-107) Carbon Dioxide Level 26 mmol/L (21-32) 23 mmol/L (21-32) 23 mmol/L (21-32) 26 mmol/L (21-32) Anion Gap 7 (6-14) 11 (6-14) 11 (6-14) 9 (6-14) Blood Urea Nitrogen 28 mg/dL (8-26) 21 mg/dL (8-26) 20 mg/dL (8-26) 27 mg/dL (8-26) Creatinine 4.2 mg/dL (0.7-1.3) 3.4 mg/dL (0.7-1.3) 3.7 mg/dL (0.7-1.3) 5.6 mg/dL (0.7-1.3) Estimated GFR (Cockcroft-Gault) 16.7 21.4 19.4 12.0 Glucose Level 111 mg/dL (70-99) 120 mg/dL (70-99) 101 mg/dL (70-99) 95 mg/dL (70-99) Calcium Level 7.4 mg/dL (8.5-10.1) 7.5 mg/dL (8.5-10.1) 7.9 mg/dL (8.5-10.1) 8.8 mg/dL (8.5-10.1) Phosphorus Level 3.1 mg/dL (2.6-4.7) 2.6 mg/dL (2.6-4.7) 2.8 mg/dL (2.6-4.7) Magnesium Level 2.2 mg/dL (1.8-2.4) 2.3 mg/dL (1.8-2.4) 2.3 mg/dL (1.8-2.4) Creatine Kinase 59850 U/L (39-308) 21365 U/L (39-308) BUN/Creatinine Ratio 5 (6-20) Total Bilirubin 0.5 mg/dL (0.2-1.0) Aspartate Amino Transf (AST/SGOT) 296 U/L (15-37) Alanine Aminotransferase (ALT/SGPT) 220 U/L (16-63) Alkaline Phosphatase 129 U/L (46-116) Total Protein 5.2 g/dL (6.4-8.2) Albumin 1.9 g/dL (3.4-5.0) Albumin/Globulin Ratio 0.6 (1.0-1.7) Laboratory Tests Test 09/17/18 03:15 White Blood Count 8.6 x10^3/uL (4.0-11.0) Red Blood Count 3.30 x10^6/uL (4.30-5.70) Hemoglobin 9.6 g/dL (13.0-17.5) Hematocrit 27.8 % (39.0-53.0) Mean Corpuscular Volume 84 fL (79-100) Mean Corpuscular Hemoglobin 29 pg (25-35) Mean Corpuscular Hemoglobin Concent 35 g/dL (31-37) Red Cell Distribution Width 13.1 % (11.5-14.5) Platelet Count 210 x10^3/uL (140-400) Neutrophils (%) (Auto) 73 % (31-73) Lymphocytes (%) (Auto) 15 % (24-48) Monocytes (%) (Auto) 8 % (0-9) Eosinophils (%) (Auto) 3 % (0-3) Basophils (%) (Auto) 1 % (0-3) Neutrophils # (Auto) 6.3 x10^3/uL (1.8-7.7) Lymphocytes # (Auto) 1.3 x10^3/uL (1.0-4.8) Monocytes # (Auto) 0.7 x10^3/uL (0.0-1.1) Eosinophils # (Auto) 0.3 x10^3/uL (0.0-0.7) Basophils # (Auto) 0.1 x10^3/uL (0.0-0.2) Sodium Level 132 mmol/L (136-145) Potassium Level 3.9 mmol/L (3.5-5.1) Chloride Level 97 mmol/L (98-107) Carbon Dioxide Level 26 mmol/L (21-32) Anion Gap 9 (6-14) Blood Urea Nitrogen 27 mg/dL (8-26) Creatinine 5.6 mg/dL (0.7-1.3) Estimated GFR (Cockcroft-Gault) 12.0 BUN/Creatinine Ratio 5 (6-20) Glucose Level 95 mg/dL (70-99) Calcium Level 8.8 mg/dL (8.5-10.1) Total Bilirubin 0.5 mg/dL (0.2-1.0) Aspartate Amino Transf (AST/SGOT) 296 U/L (15-37) Alanine Aminotransferase (ALT/SGPT) 220 U/L (16-63) Alkaline Phosphatase 129 U/L (46-116) Creatine Kinase 64341 U/L (39-308) Total Protein 5.2 g/dL (6.4-8.2) Albumin 1.9 g/dL (3.4-5.0) Albumin/Globulin Ratio 0.6 (1.0-1.7) Microbiology 09/12/18 Blood Culture - Final, Complete NO GROWTH AFTER 5 DAYS 09/12/18 CSF Gram Stain - Final, Complete 09/11/18 Urine Culture - Final, Complete 09/11/18 Urine Culture Result 1 ([place]) - Final, Complete Medications Current Medications Morphine Sulfate (Morphine Sulfate) 4 mg 1X ONCE IV Last administered on 9at 21:20; Start 09/11/18 at 21:30; Stop 09/11/18 at 21:31; Status DC Sodium Chloride 1,000 ml @ 1,000 mls/hr 1X ONCE IV Last administered on 09/11/18at 22:30; Start 09/11/18 at 22:30; Stop 09/11/18 at 23:29; Status DC Calcium Gluconate (Calcium Gluconate) 1,000 mg 1X ONCE IVP Last administered on 09/11/18at 22:43; Start 09/11/18 at 23:00; Stop 09/11/18 at 23:01; Status DC Insulin Human Regular (HumuLIN R VIAL) 10 unit 1X ONCE IV Last administered on 09/11/18at 23:51; Start 09/11/18 at 23:00; Stop 09/11/18 at 23:01; Status DC Dextrose (Dextrose 50%-Water Syringe) 25 gm 1X ONCE IV Last administered on 09/11/18at 22:42; Start 09/11/18 at 23:00; Stop 09/11/18 at 23:01; Status DC Sodium Bicarbonate (Sodium Bicarb Adult 8.4% Syr) 50 meq 1X ONCE IV Last administered on 09/11/18at 23:49; Start 09/11/18 at 23:00; Stop 09/11/18 at 23:01; Status DC Sodium Chloride 1,000 ml @ 1,000 mls/hr 1X ONCE IV Last administered on 09/11/18at 23:50; Start 09/11/18 at 23:00; Stop 09/11/18 at 23:59; Status DC Albuterol Sulfate (Ventolin Neb Soln) 10 mg 1X ONCE CONT NEB Last administered on 09/12/18at 00:30; Start 09/11/18 at 23:00; Stop 09/11/18 at 23:01; Status DC Ceftriaxone Sodium (Rocephin) 1 gm 1X ONCE IVP Last administered on 09/11/18at 22:43; Start 09/11/18 at 23:00; Stop 09/11/18 at 23:01; Status DC Sodium Chloride 1,000 ml @ 1,000 mls/hr 1X ONCE IV Last administered on 09/12/18at 01:00; Start 09/12/18 at 01:00; Stop 09/12/18 at 01:59; Status DC Lorazepam (Ativan Inj) 0.5 mg PRN Q6HRS PRN IV ANXIETY / AGITATION Last administered on 09/12/18at 11:00; Start 09/12/18 at 01:15; Stop 09/13/18 at 08:48; Status DC Ondansetron HCl (Zofran) 4 mg PRN Q6HRS PRN IV NAUSEA/VOMITING 1ST CHOICE; Start 09/12/18 at 01:15; Stop 09/12/18 at 01:22; Status DC Sodium Chloride (Normal Saline Flush) 3 ml QSHIFT PRN IV AFTER MEDS AND BLOOD DRAWS; Start 09/12/18 at 01:15 Sodium Chloride 1,000 ml @ 175 mls/hr Q5H43M IV ; Start 09/12/18 at 01:08; Stop 09/12/18 at 01:23; Status DC Ondansetron HCl (Zofran) 4 mg PRN Q8HRS PRN IV NAUSEA/VOMITING 1ST CHOICE; Start 09/12/18 at 01:15; Stop 09/13/18 at 01:14; Status DC Sodium Chloride 1,000 ml @ 150 mls/hr Q6H40M IV ; Start 09/12/18 at 01:30; Stop 09/12/18 at 18:49; Status DC Morphine Sulfate (Morphine Sulfate) 4 mg PRN Q4HRS PRN IV SEVERE PAIN Last administered on 09/16/18at 08:24; Start 09/12/18 at 09:00 Sodium Bicarbonate (Sodium Bicarb Adult 8.4% Syr) 100 meq 1X ONCE IV Last ad ministered on 09/12/18at 10:02; Start 09/12/18 at 10:00; Stop 09/12/18 at 10:01; Status DC Sodium Chloride 1,000 ml @ 1,000 mls/hr 1X ONCE IV Last administered on 09/12/18 09:56; Start 09/12/18 at 10:00; Stop 09/12/18 at 10:59; Status DC Lidocaine/Sodium Bicarbonate (Buffered Lidocaine 1%) 3 ml STK-MED ONCE .ROUTE ; Start 09/12/18 at 11:07; Stop 09/12/18 at 11:08; Status DC Calcium Gluconate (Calcium Gluconate) 2,000 mg 1X ONCE IVP Last administered on 09/12/18at 13:38; Start 09/12/18 at 12:00; Stop 09/12/18 at 12:01; Status DC Ceftriaxone Sodium (Rocephin) 1 gm Q24H IVP Last administered on 09/12/18at 12:49; Start 09/12/18 at 13:00; Stop 09/13/18 at 07:45; Status DC Silver Sulfadiazine (Silvadene) 1 elinor BID TP Last administered on 09/13/18at 10:06; Start 09/12/18 at 13:00; Stop 09/13/18 at 15:04; Status DC Sodium Chloride 1,000 ml @ 1,000 mls/hr 1X ONCE IV Last administered on 09/12/18at 12:47; Start 09/12/18 at 12:45; Stop 09/12/18 at 13:44; Status DC Pantoprazole Sodium (Protonix) 40 mg DAILYAC PO ; Start 09/12/18 at 13:30; Stop 09/12/18 at 19:22; Status DC Polyethylene Glycol (miraLAX PACKET) 17 gm DAILY PO Last administered on 09/17/18at 10:05; Start 09/12/18 at 13:30 Lidocaine/Sodium Bicarbonate (Buffered Lidocaine 1%) 3 ml STK-MED ONCE .ROUTE ; Start 09/12/18 at 13:48; Stop 09/12/18 at 13:49; Status DC Haloperidol Lactate (Haldol Inj) 1 mg PRN Q8HRS PRN IVP AGITATION Last administered on 09/14/18at 07:56; Start 09/12/18 at 14:00 Lorazepam (Ativan Inj) 2 mg PRN Q2HRS PRN IV ANXIETY. Last administered on 09/16/18at 21:22; Start 09/12/18 at 14:00; Stop 09/17/18 at 10:17; Status DC Lidocaine/Sodium Bicarbonate (Buffered Lidocaine 1%) 6 ml 1X ONCE INJ ; Start 09/12/18 at 14:15; Stop 09/12/18 at 14:16; Status DC Dexmedetomidine HCl 200 mcg/ Sodium Chloride 50 ml @ 0 mls/hr CONT PRN IV PER PROTOCOL Last administered on 09/15/18at 10:28; Start 09/12/18 at 14:15; Stop at 10:17; Status DC Sodium Chloride 500 ml @ 500 mls/hr 1X PRN PRN IV SEE COMMENTS; Start 09/12/18 at 14:15 Atropine Sulfate (ATROPINE 0.5mg SYRINGE) 0.5 mg PRN Q5MIN PRN IV SEE COMMENTS; Start 09/12/18 at 14:15 Sodium Chloride 1,000 ml @ 1,000 mls/hr Q1H PRN IV hypotension; Start 09/12/18 at 15:08; Stop 09/12/18 at 21:07; Status DC Diphenhydramine HCl (Benadryl) 25 mg 1X PRN PRN IV ITCHING; Start 09/12/18 at 15:15; Stop 09/13/18 at 11:19; Status DC Diphenhydramine HCl (Benadryl) 25 mg 1X PRN PRN IV ITCHING; Start 09/12/18 at 15:15; Stop 09/13/18 at 11:19; Status DC Sodium Chloride 1,000 ml @ 400 mls/hr Q2H30M PRN IV PATENCY; Start 09/12/18 at 15:08; Stop 09/13/18 at 03:07; Status DC Info (PHARMACY MONITORING -- do not chart) 1 each PRN DAILY PRN MC SEE COMMENTS; Start 09/12/18 at 15:15; Stop 09/13/18 at 11:18; Status DC Pantoprazole Sodium (PROTONIX VIAL for IV PUSH) 40 mg DAILYAC IVP Last administered on 09/17/18at 10:04; Start 09/13/18 at 07:30; Stop 09/17/18 at 11:54; Status DC Linezolid (Zyvox) 600 mg BID PO Last administered on 09/17/18at 10:04; Start 09/13/18 at 09:00 Ceftriaxone Sodium (Rocephin) 2 gm Q24H IVP Last administered on 09/16/18at 12:14; Start 09/13/18 at 13:00; Stop 09/17/18 at 10:06; Status DC Calcium Gluconate 2000 mg/Dextrose 120 ml @ 220 mls/hr 1X ONCE IV Last administered on 09/13/18at 10:05; Start 09/13/18 at 10:00; Stop 09/13/18 at 10: 32; Status DC Sodium Chloride 1,000 ml @ 1,000 mls/hr Q1H PRN IV hypotension; Start 09/13/18 at 11:06; Stop 09/13/18 at 17:05; Status DC Diphenhydramine HCl (Benadryl) 25 mg 1X PRN PRN IV ITCHING; Start 09/13/18 at 11:15; Stop 09/14/18 at 11:14; Status DC Diphenhydramine HCl (Benadryl) 25 mg 1X PRN PRN IV ITCHING; Start 09/13/18 at 11:15; Stop 09/14/18 at 11:14; Status DC Sodium Chloride 1,000 ml @ 400 mls/hr Q2H30M PRN IV PATENCY; Start 09/13/18 at 11:06; Stop 09/13/18 at 23:05; Status DC Info (PHARMACY MONITORING -- do not chart) 1 each PRN DAILY PRN MC SEE COMMENTS; Start 09/13/18 at 11:15; Status Cancel Potassium Chloride 10 meq/ Calcium Chloride 12.5 meq/ Bicarbonate Dialysis Soln w/ out KCl 5,013.9286 ml @ 1,000 mls/hr Q5H1M IV ; Start 09/14/18 at 13:00; Status Cancel Potassium Chloride 20 meq/ Calcium Chloride 12.5 meq/ Bicarbonate Dialysis Soln w/ out KCl 5,018.9286 ml @ 1,500 mls/hr Q3H21M IV ; Start 09/14/18 at 13:00; Stop 09/14/18 at 13:00; Status DC Heparin Sodium (Porcine) (Heparin Sodium) 4,000 unit 1X ONCE IV Last administered on 09/14/18at 19:54; Start 09/14/18 at 12:00; Stop 09/14/18 at 12:11; Status DC Heparin Sodium/ Dextrose 500 ml @ 0 mls/hr CONT PRN IV SEE I/O RECORD Last administered on 09/15/18at 15:05; Start 09/14/18 at 12:00; Stop 09/16/18 at 08:03; Status DC Heparin Sodium (Porcine) (Heparin Sodium) 2,500 unit PRN Q6HRS PRN IV FOR UFH LEVEL LESS THAN 0.2; Start 09/14/18 at 12:00 Potassium Chloride 10 meq/ Calcium Chloride 12.5 meq/ Bicarbonate Dialysis Soln w/ out KCl 5,013.9286 ml @ 1,000 mls/hr Q5H1M IV ; Start 09/14/18 at 13:00; Stop 09/14/18 at 13:00; Status DC Potassium Chloride 10 meq/ Bicarbonate Dialysis Soln w/ out KCl 5,005 ml @ 1,000 mls/hr Q5H1M IV ; Start 09/14/18 at 13:00; Stop 09/14/18 at 13:00; Status DC Potassium Chloride 20 meq/ Bicarbonate Dialysis Soln w/ out KCl 5,010 ml @ 1,500 mls/hr Q3H21M IV ; Start 09/14/18 at 13:00; Stop 09/14/18 at 13:00; Status DC Potassium Chloride 10 meq/ Bicarbonate Dialysis Soln w/ out KCl 5,005 ml @ 1,500 mls/hr Q3H21M IV ; Start 09/14/18 at 13:00; Stop 09/14/18 at 13:00; Status DC Potassium Chloride 20 meq/ Bicarbonate Dialysis Soln w/ out KCl 5,010 ml @ 1,000 mls/hr Q5H1M IV Last administered on 09/15/18at 20:43; Start 09/14/18 at 13:00; Stop 09/16/18 at 08:03; Status DC Potassium Chloride 20 meq/ Bicarbonate Dialysis Soln w/ out KCl 5,010 ml @ 1,500 mls/hr Q3H21M IV ; Start 09/14/18 at 12:45; Stop 09/14/18 at 12:45; Status DC Potassium Chloride 40 meq/ Bicarbonate Dialysis Soln w/ out KCl 5,020 ml @ 1,500 mls/hr Q3H21M IV ; Start 09/14/18 at 13:00; Stop 09/14/18 at 13:10; Status DC Potassium Chloride 60 meq/ Bicarbonate Dialysis Soln w/ out KCl 5,030 ml @ 1,500 mls/hr Q3H22M IV ; Start 09/14/18 at 13:00; Stop 09/14/18 at 13:07; Status DC Potassium Chloride 30 meq/ Bicarbonate Dialysis Soln w/ out KCl 5,015 ml @ 1,500 mls/hr Q3H21M IV ; Start 09/14/18 at 13:15; Stop 09/14/18 at 18:00; Status DC Potassium Chloride 20 meq/ Bicarbonate Dialysis Soln w/ out KCl 5,010 ml @ 1,500 mls/hr Q3H21M IV Last administered on 09/14/18at 21:06; Start 09/14/18 at 13:10; Stop 09/14/18 at 18:00; Status DC Potassium Chloride 30 meq/ Bicarbonate Dialysis Soln w/ out KCl 5,015 ml @ 1,500 mls/hr Q3H21M IV ; Start 09/14/18 at 18:00; Stop 09/14/18 at 19:10; Status DC Potassium Chloride 20 meq/ Bicarbonate Dialysis Soln w/ out KCl 5,010 ml @ 1,500 mls/hr Q3H21M IV Last administered on 09/16/18at 00:15; Start 09/14/18 at 18:01; Stop 09/16/18 at 08:03; Status DC Potassium Chloride 20 meq/ Bicarbonate Dialysis Soln w/ out KCl 5,010 ml @ 1,500 mls/hr Q3H21M IV Last administered on 09/16/18at 00:18; Start 09/14/18 at 20:00; Stop 09/16/18 at 08:03; Status DC Lactobacillus Rhamnosus (Culturelle) 1 cap BID PO Last administered on 09/17/18at 10:04; Start 09/16/18 at 21:00 Oxycodone HCl (Roxicodone) 5 mg PRN Q4HRS PRN PO PAIN Last administered on 09/17/18at 07:51; Start 09/16/18 at 11:45 Lorazepam (Ativan Inj) 1 mg PRN Q8HRS PRN IV ANXIETY.; Start 09/16/18 at 16:00 Gabapentin (Neurontin) 300 mg QHS PO Last administered on 09/16/18at 21:21; Start 09/16/18 at 21:00 Labetalol HCl (Normodyne Iv Push) 10 mg PRN Q4HRS PRN IVP HYPERTENSION Last administered on 09/17/18at 03:33; Start 09/16/18 at 23:30; Stop 09/17/18 at 09:26; Status DC Labetalol HCl (Normodyne Iv Push) 20 mg PRN Q4HRS PRN IVP HYPERTENSION; Start 09/17/18 at 09:30 Ondansetron HCl (Zofran) 4 mg PRN Q6HRS PRN IV NAUSEA/VOMITING; Start 09/17/18 at 09:30 Acetaminophen (Tylenol) 500 mg PRN Q6HRS PRN PO MILD PAIN / TEMP; Start 09/17/18 at 09:30 Lidocaine (Lidoderm) 1 patch DAILY TD ; Start 09/17/18 at 10:00 Miscellaneous (Lidoderm Patch Removal) 1 ea QHS MC ; Start 09/17/18 at 21:00 Sodium Chloride 1,000 ml @ 1,000 mls/hr Q1H PRN IV hypotension; Start 09/17/18 at 11:26; Stop 09/17/18 at 17:25 Albumin Human 200 ml @ 200 mls/hr 1X PRN PRN IV Hypotension; Start 09/17/18 at 11:30; Stop 09/17/18 at 17:29 Sodium Chloride (Normal Saline Flush) 10 ml 1X PRN PRN IV AP catheter pack; Start 09/17/18 at 11:30; Stop 09/18/18 at 11:29 Sodium Chloride (Normal Saline Flush) 10 ml 1X PRN PRN IV [employer] catheter pack; Start 09/17/18 at 11:30; Stop 09/18/18 at 11:29 Sodium Chloride 1,000 ml @ 400 mls/hr Q2H30M PRN IV PATENCY; Start 09/17/18 at 11:26; Stop 09/17/18 at 23:25 Info (PHARMACY MONITORING -- do not chart) 1 each PRN DAILY PRN MC SEE COMMENT S; Start 09/17/18 at 11:30; Status UNV Info (PHARMACY MONITORING -- do not chart) 1 each PRN DAILY PRN MC SEE COMMENTS; Start 09/17/18 at 11:30 Pantoprazole Sodium (Protonix) 40 mg DAILYAC PO ; Start 09/18/18 at 07:30 Active Scripts Active Reported Protonix (Pantoprazole Sodium) 20 Mg Tablet.dr 2 Tab PO DAILY Zyprexa (Olanzapine) 20 Mg Tablet 2 Tab PO QHS Buspirone Hcl 30 Mg Tablet 1 Tab PO BID Vitals/I & O Vital Sign - Last 24 Hours 09/16/18 09/16/18 09/16/18 09/16/18 13:00 16:21 19:40 20:00 Pulse 18 101 Resp 16 18 18 B/P (MAP) 164/91 (115) 174/111 (132) Pulse Ox 95 96 O2 Delivery Room Air Room Air Room Air Room Air 09/16/18 09/16/18 09/16/18 09/17/18 21:22 22:22 23:39 03:33 Temp 98.4 98.4 Pulse 103 98 Resp 16 18 B/P (MAP) 178/120 (139) 182/107 Pulse Ox 96 O2 Delivery Room Air Room Air O2 Flow Rate 98.0 98.0 09/17/18 09/17/18 09/17/18 09/17/18 03:37 03:40 04:37 07:51 Temp 98.3 98.3 Pulse 113 Resp 22 18 18 B/P (MAP) 184/107 (132) Pulse Ox 96 96 O2 Delivery Room Air Room Air Room Air 09/17/18 09/17/18 09/17/18 07:57 08:51 11:34 Temp 97.7 97.7 97.7 97.7 Pulse 90 99 Resp 18 18 18 B/P (MAP) 180/100 (126) 158/96 (116) Pulse Ox 97 98 O2 Delivery Room Air Room Air Room Air Intake and Output 09/16/18 09/16/18 09/17/18 14:59 22:59 06:59 Intake Total 634 ml Output Total 44 ml 150 ml Balance 590 ml -150 ml DEEPA QUINTERO MD Sep 17, 2018 12:19
--- NOTE | 2018-09-17 15:26 | PDOC ---
PROGRESS NOTES Assessment Assessment IMPRESSION: Generalized weakness. Rhabdomyolysis. Methamphetamine positive. Electrolytes imbalances. Hyponatremia. Hyperkalemia. Hypocalcemia. AKD. Other psychiatric problems. RECOMMENDATIONS/PLAN: Treat medical diseases. CSF OCB zero. OT/PT. Past Medical History GI: GERD Psych: Anxiety, Addictions, Depression Past Surgical History No pertinent history Family History No pertinent hx Social History Unemployed, uses methamphetamine, smokes occasionally, rare alcohol. Was said out of incarceration on 09/07/18. ALLERGY: NKDA MEDICATIONS: Refer to MAR REVIEW OF SYSTEMS: Refer to PMH and PSH. PHYSICAL EXAMINATION: General appearance in no acute distress. HEENT: Normocephalic and nontraumatic. Eyes, nose, ears, and throat are unremarkable. Neck is supple. No lymphadenopathy. No Crepitus. Cardiovascular: S1, S2, regular rate and rhythm. Pulmonary: Clear to auscultation bilaterally. Abdomen: Bowel sounds are positive. Extremities: No rash, lesions, or edema. No restriction of range of motion NEUROLOGICAL EXAMINATION: Awake. Sitting in chair playing cellphone. Oriented to time, place and person. PERRL. EOMI. CN: no focal findings. Muscle tone: within normal. Muscle strength: 5 DTR: 2 Plantar reflex: Flexor response bilaterally Gait: not examined in chair. Sensory exam: no acute abnormal findings. No cerebellar signs elicited. F-T-N test fine. Objective Objective Vital Signs Date Time Temp Pulse Resp B/P (MAP) Pulse Ox O2 Delivery O2 Flow Rate FiO2 09/17/18 11:34 97.7 99 18 158/96 (116) 98 Room Air 97.7 09/16/18 22:22 98.0 Intake and Output 09/17/18 07:00 Intake Total 634 ml Output Total 194 ml Balance 440 ml Intake Oral 568 ml IV Total 66 ml Output Urine Total 194 ml Vitals Signs Vitals VS - Last 72 Hours, by Label Date Time Temp Pulse Resp B/P (MAP) Pulse Ox O2 Delivery O2 Flow Rate FiO2 09/17/18 11:34 97.7 99 18 158/96 (116) 98 Room Air 97.7 09/17/18 08:51 18 Room Air 09/17/18 07:57 97.7 90 18 180/100 (126) 97 Room Air 97.7 09/17/18 07:51 18 Room Air 09/17/18 04:37 96 09/17/18 03:40 98.3 113 18 184/107 (132) 96 Room Air 98.3 09/17/18 03:37 22 Room Air 09/17/18 03:33 98 182/107 09/16/18 23:39 98.4 103 18 178/120 (139) 96 Room Air 98.4 09/16/18 22:22 98.0 09/16/18 21:22 16 Room Air 98.0 09/16/18 20:00 Room Air 09/16/18 19:40 101 18 174/111 (132) 96 Room Air 09/16/18 16:21 18 Room Air 09/16/18 13:00 18 16 164/91 (115) 95 Room Air 09/16/18 12:14 23 96 Room Air 09/16/18 12:00 99.0 114 20 176/87 (116) 97 Room Air 99.0 09/16/18 12:00 Room Air 09/16/18 11:00 121 20 135/97 (110) 96 Room Air 09/16/18 10:00 117 23 158/88 (111) 97 Room Air 09/16/18 09:00 114 17 161/91 (114) 96 Room Air 09/16/18 08:54 Room Air 09/16/18 08:24 96 Room Air 09/16/18 08:00 Room Air 09/16/18 08:00 99.0 110 16 149/87 (107) 94 Room Air 99.0 09/16/18 07:00 120 19 157/80 (105) 98 Room Air Laboratory Laboratory Laboratory Tests Test 09/17/18 03:15 White Blood Count 8.6 x10^3/uL (4.0-11.0) Red Blood Count 3.30 x10^6/uL (4.30-5.70) Hemoglobin 9.6 g/dL (13.0-17.5) Hematocrit 27.8 % (39.0-53.0) Mean Corpuscular Volume 84 fL (79-100) Mean Corpuscular Hemoglobin 29 pg (25-35) Mean Corpuscular Hemoglobin Concent 35 g/dL (31-37) Red Cell Distribution Width 13.1 % (11.5-14.5) Platelet Count 210 x10^3/uL (140-400) Neutrophils (%) (Auto) 73 % (31-73) Lymphocytes (%) (Auto) 15 % (24-48) Monocytes (%) (Auto) 8 % (0-9) Eosinophils (%) (Auto) 3 % (0-3) Basophils (%) (Auto) 1 % (0-3) Neutrophils # (Auto) 6.3 x10^3/uL (1.8-7.7) Lymphocytes # (Auto) 1.3 x10^3/uL (1.0-4.8) Monocytes # (Auto) 0.7 x10^3/uL (0.0-1.1) Eosinophils # (Auto) 0.3 x10^3/uL (0.0-0.7) Basophils # (Auto) 0.1 x10^3/uL (0.0-0.2) Sodium Level 132 mmol/L (136-145) Potassium Level 3.9 mmol/L (3.5-5.1) Chloride Level 97 mmol/L (98-107) Carbon Dioxide Level 26 mmol/L (21-32) Anion Gap 9 (6-14) Blood Urea Nitrogen 27 mg/dL (8-26) Creatinine 5.6 mg/dL (0.7-1.3) Estimated GFR (Cockcroft-Gault) 12.0 BUN/Creatinine Ratio 5 (6-20) Glucose Level 95 mg/dL (70-99) Calcium Level 8.8 mg/dL (8.5-10.1) Total Bilirubin 0.5 mg/dL (0.2-1.0) Aspartate Amino Transf (AST/SGOT) 296 U/L (15-37) Alanine Aminotransferase (ALT/SGPT) 220 U/L (16-63) Alkaline Phosphatase 129 U/L (46-116) Creatine Kinase 61811 U/L (39-308) Total Protein 5.2 g/dL (6.4-8.2) Albumin 1.9 g/dL (3.4-5.0) Albumin/Globulin Ratio 0.6 (1.0-1.7) Microbiology 09/12/18 Blood Culture - Final, Complete NO GROWTH AFTER 5 DAYS 09/12/18 CSF Gram Stain - Final, Complete 09/11/18 Urine Culture - Final, Complete 09/11/18 Urine Culture Result 1 ([place]) - Final, Complete Medication Medications Current Medications Acetaminophen (Tylenol) 500 mg PRN Q6HRS PRN PO MILD PAIN / TEMP; Start 09/17/18 at 09:30 Albumin Human 200 ml @ 200 mls/hr 1X PRN PRN IV Hypotension; Start 09/17/18 at 11:30; Stop 09/17/18 at 17:29 Gabapentin (Neurontin) 300 mg QHS PO Last administered on 09/16/18at 21:21; Start 09/16/18 at 21:00 Info (PHARMACY MONITORING -- do not chart) 1 each PRN DAILY PRN MC SEE COMMENTS; Start 09/17/18 at 11:30 Info (PHARMACY MONITORING -- do not chart) 1 each PRN DAILY PRN MC SEE COMMENTS; Start 09/17/18 at 11:30; Status UNV Labetalol HCl (Normodyne Iv Push) 10 mg PRN Q4HRS PRN IVP HYPERTENSION Last administered on 09/17/18at 03:33; Start 09/16/18 at 23:30; Stop 09/17/18 at 09:26; Status DC Labetalol HCl (Normodyne Iv Push) 20 mg PRN Q4HRS PRN IVP HYPERTENSION; Start 09/17/18 at 09:30 Lactobacillus Rhamnosus (Culturelle) 1 cap BID PO Last administered on 09/17/18at 10:04; Start 09/16/18 at 21:00 Lidocaine (Lidoderm) 1 patch DAILY TD ; Start 09/17/18 at 10:00 Lorazepam (Ativan Inj) 1 mg PRN Q8HRS PRN IV ANXIETY.; Start 09/16/18 at 16:00 Miscellaneous (Lidoderm Patch Removal) 1 ea QHS MC ; Start 09/17/18 at 21:00 Ondansetron HCl (Zofran) 4 mg PRN Q6HRS PRN IV NAUSEA/VOMITING; Start 09/17/18 at 09:30 Pantoprazole Sodium (Protonix) 40 mg DAILYAC PO ; Start 09/18/18 at 07:30 Sodium Chloride 1,000 ml @ 400 mls/hr Q2H30M PRN IV PATENCY; Start 09/17/18 at 11:26; Stop 09/17/18 at 23:25 Sodium Chloride 1,000 ml @ 1,000 mls/hr Q1H PRN IV hypotension; Start 09/17/18 at 11:26; Stop 09/17/18 at 17:25 Sodium Chloride (Normal Saline Flush) 10 ml 1X PRN PRN IV AP catheter pack; Start 09/17/18 at 11:30; Stop 09/18/18 at 11:29 Sodium Chloride (Normal Saline Flush) 10 ml 1X PRN PRN IV GLASS WASHER catheter pack; Start 09/17/18 at 11:30; Stop 09/18/18 at 11:29 Comment Review of Relevant I have reviewed the following items ashlie (where applicable) has been applied. KIM ELDER MD Sep 17, 2018 15:26
--- NOTE | 2018-09-17 15:27 | NUR ---
Wound care: Patient in dialysis at this time. Spoke with RN, RN will change dressings today as patient will be in dialysis during wound care rounds. Dressing change left with RN. Wound care will see patient tomorrow.
--- NOTE | 2018-09-17 16:30 | NUR ---
pt reported to me that he had money in his drawer. I confirmed that there was $150.00 chirinos.7-$20.00 bills and 2-$5.00 bills. I spoke to the pt about locking it up with security or sending it with family. Security came and talked to pt. Pt declined locking it up and said he will take his chances. He wants to keep it in his shorts in the green bag that is in his bedside table.
[2018-09-17 17:59] VITALS: BP 161/102
[2018-09-17 19:20] VITALS: BP 156/103
[2018-09-17] MEDS: MORPHINE SULFATE 4 MG/ML VIAL. IV PRN (20:04)
[2018-09-17] MEDS: PATCH REMOVAL. MC SCH (21:00)
[2018-09-17] MEDS: GABAPENTIN 300 MG CAPSULE. PO SCH (21:06)
[2018-09-17 23:25] VITALS: BP 136/82
[2018-09-18] MEDS: MORPHINE SULFATE 4 MG/ML VIAL. IV PRN ×4 (00:50→19:40)
--- NOTE | 2018-09-18 01:12 | NUR ---
This RN transferred care of patient to Shruti LEW.
[2018-09-18 03:25] VITALS: BP 151/93
--- NOTE | 2018-09-18 07:43 | PDOC ---
PROGRESS NOTES Subjective Subjective Problems overnight: Progress note from 09/17/2018. Awake alert and no complaints of pain with his right hand Objective Vital Signs Vital Signs Date Time Temp Pulse Resp B/P (MAP) Pulse Ox O2 Delivery O2 Flow Rate FiO2 09/18/18 03:25 98.3 99 16 151/93 (112) 98 Room Air 98.3 09/17/18 16:00 98.0 Physical Exam On examination the area of rapp on his thumb are superficial with underlying intact deep dermis. On his index finger deep tissue appears to be actually intact showing good vascularity underneath no tendon or fascia is exposed he can move the fingers fully and no redness or erythema is present Labs Laboratory Tests Test 09/17/18 03:15 09/18/18 05:15 White Blood Count 8.6 x10^3/uL (4.0-11.0) Red Blood Count 3.30 x10^6/uL (4.30-5.70) Hemoglobin 9.6 g/dL (13.0-17.5) Hematocrit 27.8 % (39.0-53.0) Mean Corpuscular Volume 84 fL (79-100) Mean Corpuscular Hemoglobin 29 pg (25-35) Mean Corpuscular Hemoglobin Concent 35 g/dL (31-37) Red Cell Distribution Width 13.1 % (11.5-14.5) Platelet Count 210 x10^3/uL (140-400) Neutrophils (%) (Auto) 73 % (31-73) Lymphocytes (%) (Auto) 15 % (24-48) Monocytes (%) (Auto) 8 % (0-9) Eosinophils (%) (Auto) 3 % (0-3) Basophils (%) (Auto) 1 % (0-3) Neutrophils # (Auto) 6.3 x10^3/uL (1.8-7.7) Lymphocytes # (Auto) 1.3 x10^3/uL (1.0-4.8) Monocytes # (Auto) 0.7 x10^3/uL (0.0-1.1) Eosinophils # (Auto) 0.3 x10^3/uL (0.0-0.7) Basophils # (Auto) 0.1 x10^3/uL (0.0-0.2) Sodium Level 132 mmol/L (136-145) Potassium Level 3.9 mmol/L (3.5-5.1) Chloride Level 97 mmol/L (98-107) Carbon Dioxide Level 26 mmol/L (21-32) Anion Gap 9 (6-14) Blood Urea Nitrogen 27 mg/dL (8-26) Creatinine 5.6 mg/dL (0.7-1.3) Estimated GFR (Cockcroft-Gault) 12.0 BUN/Creatinine Ratio 5 (6-20) Glucose Level 95 mg/dL (70-99) Calcium Level 8.8 mg/dL (8.5-10.1) Total Bilirubin 0.5 mg/dL (0.2-1.0) Aspartate Amino Transf (AST/SGOT) 296 U/L (15-37) Alanine Aminotransferase (ALT/SGPT) 220 U/L (16-63) Alkaline Phosphatase 129 U/L (46-116) Creatine Kinase 16402 U/L (39-308) 4893 U/L (39-308) Total Protein 5.2 g/dL (6.4-8.2) Albumin 1.9 g/dL (3.4-5.0) Albumin/Globulin Ratio 0.6 (1.0-1.7) Laboratory Tests Test 09/18/18 05:15 Creatine Kinase 4893 U/L (39-308) Assessment Assessment Rapp on right hand Plan Plan of Care His right hand rapp are coming along well with routine wound care and dressing changes. I do not anticipate any operative intervention continue wound care as present NNAMDI DESAI MD Sep 18, 2018 07:43
[2018-09-18 07:45] VITALS: BP 165/99
[2018-09-18] MEDS: LACTOBACILLUS RHAMNOSUS GG 1 CAPSULE. PO SCH ×2 (08:40→19:40)
[2018-09-18] MEDS: PANTOPRAZOLE 40 MG TABLET.DR. PO SCH (08:40)
[2018-09-18] MEDS: LINEZOLID 600 MG TABLET PO SCH ×2 (08:43→19:40)
[2018-09-18] MEDS: POLYETHYLENE GLYCOL 3350 17 GM PACKET. PO SCH (08:44)
[2018-09-18] MEDS: LIDOCAINE (700MG/PATCH) PATCH. TD SCH (08:44)
--- NOTE | 2018-09-18 08:45 | NUR ---
Wound Care patient seen per f/u of Wound care consult for right hand rapp. Cleansed wounds, applied Medihoney alginate and gauze to open blisters on thumb and index fingers, recommend to change every 3 days. Pt has abrasion to left elbow, covered with Xeroform and foam dressing. No other wounds noted on full skin inspection. patient has a dark red area on the plantar heel the area was assessed patient stated he has been working on the area for a while. no open area or drainage noted. WC will continue to follow for possible changes
--- NOTE | 2018-09-18 08:58 | PDOC ---
Infectious Disease Note Subjective Subjective Doing ok Denies F/C/N/V/D/SOA ROS ROS o/w neg Vital Sign Vital Signs Vital Signs Date Time Temp Pulse Resp B/P (MAP) Pulse Ox O2 Delivery O2 Flow Rate FiO2 09/18/18 07:45 97.8 83 18 165/99 (121) 98 Room Air 97.8 09/17/18 16:00 98.0 Physical Exam PHYSICAL EXAM GENERAL: Standing with PT then sat down, NAD, coop EENT: Pupils equal, oral cavity clear NECK: Supple. LUNGS: Clear bilaterally. No wheezing. HEART: S1, S2, regular, tachy 108s ABDOMEN: Soft, nontender, BS present : Fernandez EXTREMITIES: Generalized trace edema, no cyanosis. Right index with min swelling. Lesions are stable - mild maceration CENTRAL NERVOUS SYSTEM: Alert, answering appropriately RIJ/HDC without signs of complications PIV Labs Lab Laboratory Tests Test 09/18/18 05:15 Creatine Kinase 4893 U/L (39-308) Micro Microbiology 09/12/18 Blood Culture - Final, Complete NO GROWTH AFTER 5 DAYS 09/12/18 CSF Gram Stain - Final, Complete 09/11/18 Urine Culture - Final, Complete 09/11/18 Urine Culture Result 1 ([place]) - Final, Complete Objective Assessment Right hand burn to index finger with cellulitis, superficial. No evidence of sinus tract. X ray neg - no I and D at this point per Ortho - note reviewed History of intravenous drug use Leukocytosis, likely reactive.resolved History of fall with rhabdomyolysis. CK >100,000 Hyponatremia, hyperkalemia, severe metabolic acidosis, acute kidney injury on CRRT Transaminitis. Gallbladder sludge on ultrasound. Encephalopathy - S/p LP 09/12 Methicillin-resistant Staphylococcus aureus screen positive. Bilateral lower extremity weakness, numbness and history of fall prior to admission. Urinary retention. Paresthesia. Abnormal T2 signal within the right greater than left paraspinal musculature and psoas, which can be seen with edema in these regions. Neurology and Neurosurgery consulted. Hematuria with occasional wbc's on urinalysis. Plan Plan of Care Continue Zyvox.(09/13) through 09/19 then d/c Clinically better. ID to sign off FATOU EVERETT MD Sep 18, 2018 08:58
[2018-09-18] MEDS ORDERED: LORazepam 0.5 MG TABLET PO PRN (09:00)
[2018-09-18] MEDS ORDERED: HALOPERIDOL 0.5 MG TABLET. PO PRN (09:00)
[2018-09-18] MEDS ORDERED: HALOPERIDOL 2 MG/ML ORAL.CONC. PO PRN (09:03)
[2018-09-18] MEDS: LABETALOL HCL 100 MG TABLET. PO SCH ×2 (09:49→19:40)
--- NOTE | 2018-09-18 10:59 | PDOC ---
Subjective: Subjective: Has back pain. Eating and stooling without issue. Says he ate a lot for breakfast and was really full. Objective: Vital Signs: Vital Signs Date Time Temp Pulse Resp B/P (MAP) Pulse Ox O2 Delivery O2 Flow Rate FiO2 09/18/18 09:49 83 165/99 09/18/18 07:45 97.8 18 98 Room Air 97.8 09/17/18 16:00 98.0 Labs: Laboratory Tests Test 09/18/18 05:15 Creatine Kinase 4893 U/L PE: GEN: NAD - therapy present LUNGS: CTAB HEART: RRR ABD: NABS, S/ND/NT NEURO/PSYCH: A & O 3 A/P: Transaminitis - better Rhabdo, CARO -- Improving GI-[place]. LARRY HARDY Sep 18, 2018 10:59
[2018-09-18 11:10] VITALS: BP 136/88
--- NOTE | 2018-09-18 11:14 | PDOC ---
SUBJECTIVE ROS No acute events overnight OBJECTIVE Vital Signs Vital Signs Date Time Temp Pulse Resp B/P (MAP) Pulse Ox O2 Delivery O2 Flow Rate FiO2 09/18/18 09:49 83 165/99 09/18/18 07:45 97.8 18 98 Room Air 97.8 09/17/18 16:00 98.0 I & 0 Intake and Output 09/18/18 07:00 Intake Total 400 ml Balance 400 ml Intake Oral 400 ml PHYSICAL EXAM Physical Exam GENERAL: In chair, NAD, EENT: OM moist NECK: Supple. LUNGS: Clear bilaterally. No wheezing. HEART: S1, S2, regular, ABDOMEN: Soft, nontender, BS present : Fernandez EXTREMITIES: Generalized trace edema, NEURO: Alert, answering appropriately RIJ/HDC DIAGNOSIS/ASSESSMENT Assessment & Plan CARO - ATN2/2 Rhabdo , Meth use Urinary retention at Presentation,Anuric Has Fernandez in place-Flush to make sure not clogged Requiring HD - 1 st Tx 09/12 ,CRRT x 1 No indication for HD today , If no improvement will need Perma cath and OP chair time Rhabdo- CPK>100,000 at presentation Hyperkalemia- Normal K Hyponatremia- stable, mildly low Severe Metabolic acidosis- 2/2 all above Resolved Transaminitis - Improving LFT's Hypocalcemia- severe 2/2 Rhabdo Replace cautiously and Monitor closely for Hypercalcemia during recovery phase Discussed with RN COMMENT/RELEVANT DATA Meds Current Medications Medications (Trade) Dose Ordered Sig/Mirela Start Time Stop Time Status Last Admin Dose Admin Acetaminophen (Tylenol) 500 mg PRN Q6HRS PRN 09/17/18 09:30 Albumin Human 200 ml @ 200 mls/hr 1X PRN PRN 09/17/18 11:30 09/17/18 17:29 DC Albuterol Sulfate (Ventolin Neb Soln) 10 mg 1X ONCE 09/11/18 23:00 09/11/18 23:01 DC 09/12/18 00:30 10 MG Atropine Sulfate (ATROPINE 0.5mg SYRINGE) 0.5 mg PRN Q5MIN PRN 09/12/18 14:15 Calcium Gluconate (Calcium Gluconate) 2,000 mg 1X ONCE 09/12/18 12:00 09/12/18 12:01 DC 09/12/18 13:38 2,000 MG Calcium Gluconate 2000 mg/Dextrose 120 ml @ 220 mls/hr 1X ONCE 09/13/18 10:00 09/13/18 10:32 DC 09/13/18 10:05 220 MLS/HR Ceftriaxone Sodium (Rocephin) 2 gm Q24H 09/13/18 13:00 09/17/18 10:06 DC 09/16/18 12:14 2 GM Dexmedetomidine HCl 200 mcg/ Sodium Chloride 50 ml @ 0 mls/hr CONT PRN 09/12/18 14:15 09/17/18 10:17 DC 09/15/18 10:28 12.6 MLS/HR Dextrose (Dextrose 50%-Water Syringe) 25 gm 1X ONCE 09/11/18 23:00 09/11/18 23:01 DC 09/11/18 22:42 25 GM Diphenhydramine HCl (Benadryl) 25 mg 1X PRN PRN 09/13/18 11:15 09/14/18 11:14 DC Gabapentin (Neurontin) 300 mg QHS 09/16/18 21:00 09/17/18 21:06 300 MG Haloperidol (Haldol) 0.5 mg PRN QID PRN 09/18/18 09:00 09/18/18 09:03 DC Haloperidol Lactate (HALDOL 2mg ORAL CONC) 0.5 mg PRN QID PRN 09/18/18 09:03 Haloperidol Lactate (Haldol Inj) 1 mg PRN Q8HRS PRN 09/12/18 14:00 09/14/18 07:56 1 MG Heparin Sodium (Porcine) (Heparin Sodium) 2,500 unit PRN Q6HRS PRN 09/14/18 12:00 09/17/18 13:16 DC Heparin Sodium/ Dextrose 500 ml @ 0 mls/hr CONT PRN 09/14/18 12:00 09/16/18 08:03 DC 09/15/18 15:05 28.3 MLS/HR Info (PHARMACY MONITORING -- do not chart) 1 each PRN DAILY PRN 09/17/18 11:30 Insulin Human Regular (HumuLIN R VIAL) 10 unit 1X ONCE 09/11/18 23:00 09/11/18 23:01 DC 09/11/18 23:51 10 UNIT Labetalol HCl (Normodyne Iv Push) 20 mg PRN Q4HRS PRN 09/17/18 09:30 Labetalol HCl (Trandate) 100 mg BID 09/18/18 09:00 09/18/18 09:49 100 MG Lactobacillus Rhamnosus (Culturelle) 1 cap BID 09/16/18 21:00 09/18/18 08:40 1 CAP Lidocaine (Lidoderm) 1 patch DAILY 09/17/18 10:00 09/18/18 08:44 1 PATCH Lidocaine/Sodium Bicarbonate (Buffered Lidocaine 1%) 6 ml 1X ONCE 09/12/18 14:15 09/12/18 14:16 DC Linezolid (Zyvox) 600 mg BID 09/13/18 09:00 09/19/18 22:00 09/18/18 08:43 600 MG Lorazepam (Ativan Inj) 1 mg PRN Q8HRS PRN 09/16/18 16:00 Lorazepam (Ativan) 0.5 mg PRN Q8HRS PRN 09/18/18 09:00 Miscellaneous (Lidoderm Patch Removal) 1 ea QHS 09/17/18 21:00 09/17/18 21:00 1 EA Morphine Sulfate (Morphine Sulfate) 4 mg PRN Q4HRS PRN 09/12/18 09:00 09/18/18 05:34 4 MG Ondansetron HCl (Zofran) 4 mg PRN Q6HRS PRN 09/17/18 09:30 Oxycodone HCl (Roxicodone) 5 mg PRN Q4HRS PRN 09/16/18 11:45 09/17/18 22:12 5 MG Pantoprazole Sodium (PROTONIX VIAL for IV PUSH) 40 mg DAILYAC 09/13/18 07:30 09/17/18 11:54 DC 09/17/18 10:04 40 MG Pantoprazole Sodium (Protonix) 40 mg DAILYAC 09/18/18 07:30 09/18/18 08:40 40 MG Polyethylene Glycol (miraLAX PACKET) 17 gm DAILY 09/12/18 13:30 09/18/18 08:44 17 GM Potassium Chloride 10 meq/ Bicarbonate Dialysis Soln w/ out KCl 5,005 ml @ 1,500 mls/hr Q3H21M 09/14/18 13:00 09/14/18 13:00 DC Potassium Chloride 10 meq/ Calcium Chloride 12.5 meq/ Bicarbonate Dialysis Soln w/ out KCl 5,013.9286 ml @ 1,000 mls/hr Q5H1M 09/14/18 13:00 09/14/18 13:00 DC Potassium Chloride 20 meq/ Bicarbonate Dialysis Soln w/ out KCl 5,010 ml @ 1,500 mls/hr Q3H21M 09/14/18 20:00 09/16/18 08:03 DC 09/16/18 00:18 1,500 MLS/HR Potassium Chloride 20 meq/ Calcium Chloride 12.5 meq/ Bicarbonate Dialysis Soln w/ out KCl 5,018.9286 ml @ 1,500 mls/hr Q3H21M 09/14/18 13:00 09/14/18 13:00 DC Potassium Chloride 30 meq/ Bicarbonate Dialysis Soln w/ out KCl 5,015 ml @ 1,500 mls/hr Q3H21M 09/14/18 18:00 09/14/18 19:10 DC Potassium Chloride 40 meq/ Bicarbonate Dialysis Soln w/ out KCl 5,020 ml @ 1,500 mls/hr Q3H21M 09/14/18 13:00 09/14/18 13:10 DC Potassium Chloride 60 meq/ Bicarbonate Dialysis Soln w/ out KCl 5,030 ml @ 1,500 mls/hr Q3H22M 09/14/18 13:00 09/14/18 13:07 DC Silver Sulfadiazine (Silvadene) 1 elinor BID 09/12/18 13:00 09/13/18 15:04 DC 09/13/18 10:06 1 ELINOR Sodium Bicarbonate (Sodium Bicarb Adult 8.4% Syr) 100 meq 1X ONCE 09/12/18 10:00 09/12/18 10:01 DC 09/12/18 10:02 100 MEQ Sodium Chloride 1,000 ml @ 400 mls/hr Q2H30M PRN 09/17/18 11:26 09/17/18 23:25 DC Sodium Chloride (Normal Saline Flush) 10 ml 1X PRN PRN 09/17/18 11:30 09/18/18 11:29 Lab Laboratory Tests Test 09/18/18 05:15 Creatine Kinase 4893 U/L (39-308) Results All relevant outside records, renal labs, imaging studies, telemetry/EKG's were reviewed. LAVONNE RODAS MD Sep 18, 2018 11:13
--- NOTE | 2018-09-18 12:05 | PDOC ---
PROGRESS NOTES Chief Complaint Chief Complaint ? ESRD-initiation of CRRT Hypotension Hepatorenal syndrome Elevated troponin in the background of sepsis UTI Methamphetamine abuse Metabolic encephalopathy etoh drinker Sepsis with hypotension MOD to sever PCM Oliguric renal failure Accelerated hypertension History of Present Illness History of Present Illness Not confused anymore for 48 hours ,at least under my watch He has no complaints Unsure if there plans of dialysis today Still oliguric, ruiz in Creatinine 5 from teens on admission He is self-pay CK down to 4800 from 16,000 from 100,000 on admission Blood pressure still high - on labetalol when necessary and has gotten a couple of doses Plan: start labetalol PO 100 twice a day Initiate Xanax and Haldol by mouth instead of IV too CRRT/HD per renal-so far no clear plans if needs HD permanently but then again patient is self-pay dc or maintain Ruiz?-We'll defer to renal Vitals Vitals Vital Signs Date Time Temp Pulse Resp B/P (MAP) Pulse Ox O2 Delivery O2 Flow Rate FiO2 09/18/18 09:49 83 165/99 09/18/18 07:45 97.8 18 98 Room Air 97.8 09/17/18 16:00 98.0 Physical Exam Physical Exam GENERAL: Standing with PT then sat down, NAD, coop EENT: Pupils equal, oral cavity clear NECK: Supple. LUNGS: Clear bilaterally. No wheezing. HEART: S1, S2, regular, tachy 108s ABDOMEN: Soft, nontender, BS present : Ruiz EXTREMITIES: Generalized trace edema, no cyanosis. Right index with min swelling. Lesions are stable - mild maceration CENTRAL NERVOUS SYSTEM: Alert, answering appropriately RIJ/HDC without signs of complications PIV General: Oriented X3, Cooperative, mild distress Heart: Regular rate, Normal S1, No murmurs Lungs: Clear Abdomen: Normal bowel sounds, Soft, No hepatosplenomegaly, Other (obese, no fluid wave) Extremities: No clubbing, No cyanosis, No edema, Other (burn to right index finger APPEARS OLD associated cellulitis) Labs LABS Laboratory Tests Test 09/18/18 05:15 Creatine Kinase 4893 U/L (39-308) Review of Systems Review of Systems A 14 point ROS was completed with the following noted as positive: Other systems reviewed and negative. \CONSTITUTIONAL: No fever or chills EYES: No recent changes SKIN: No rash or itching CARDIOVASCULAR: No chest pain, syncope, palpitations, or edema RESPIRATORY: No SOB or cough GASTROINTESTINAL: No nausea, vomiting or abdominal pain NEUROLOGICAL: No headaches or weakness ENDOCRINE: No cold or heat intolerance GENITOURINARY: No urgency or frequency of urination MUSCULOSKELETAL: No back pain or joint pain LYMPHATICS: No enlarged lymph nodes PSYCHIATRIC: No anxiety or depression Assessment and Plan Assessmemt and Plan Problems Medical Problems: (1) Elevated troponin Status: Acute (2) Hepatorenal syndrome Status: Acute (3) Hyperkalemia Status: Acute (4) Hyponatremia Status: Acute (5) Methamphetamine abuse Status: Acute (6) Neurological complaint Status: Acute (7) Rhabdomyolysis Status: Acute (8) Urinary retention Status: Acute (9) Urinary tract infection Status: Acute Comment Review of Relevant I have reviewed the following items ashlie (where applicable) has been applied. Labs Laboratory Tests Test 09/17/18 03:15 09/18/18 05:15 White Blood Count 8.6 x10^3/uL (4.0-11.0) Red Blood Count 3.30 x10^6/uL (4.30-5.70) Hemoglobin 9.6 g/dL (13.0-17.5) Hematocrit 27.8 % (39.0-53.0) Mean Corpuscular Volume 84 fL (79-100) Mean Corpuscular Hemoglobin 29 pg (25-35) Mean Corpuscular Hemoglobin Concent 35 g/dL (31-37) Red Cell Distribution Width 13.1 % (11.5-14.5) Platelet Count 210 x10^3/uL (140-400) Neutrophils (%) (Auto) 73 % (31-73) Lymphocytes (%) (Auto) 15 % (24-48) Monocytes (%) (Auto) 8 % (0-9) Eosinophils (%) (Auto) 3 % (0-3) Basophils (%) (Auto) 1 % (0-3) Neutrophils # (Auto) 6.3 x10^3/uL (1.8-7.7) Lymphocytes # (Auto) 1.3 x10^3/uL (1.0-4.8) Monocytes # (Auto) 0.7 x10^3/uL (0.0-1.1) Eosinophils # (Auto) 0.3 x10^3/uL (0.0-0.7) Basophils # (Auto) 0.1 x10^3/uL (0.0-0.2) Sodium Level 132 mmol/L (136-145) Potassium Level 3.9 mmol/L (3.5-5.1) Chloride Level 97 mmol/L (98-107) Carbon Dioxide Level 26 mmol/L (21-32) Anion Gap 9 (6-14) Blood Urea Nitrogen 27 mg/dL (8-26) Creatinine 5.6 mg/dL (0.7-1.3) Estimated GFR (Cockcroft-Gault) 12.0 BUN/Creatinine Ratio 5 (6-20) Glucose Level 95 mg/dL (70-99) Calcium Level 8.8 mg/dL (8.5-10.1) Total Bilirubin 0.5 mg/dL (0.2-1.0) Aspartate Amino Transf (AST/SGOT) 296 U/L (15-37) Alanine Aminotransferase (ALT/SGPT) 220 U/L (16-63) Alkaline Phosphatase 129 U/L (46-116) Creatine Kinase 92591 U/L (39-308) 4893 U/L (39-308) Total Protein 5.2 g/dL (6.4-8.2) Albumin 1.9 g/dL (3.4-5.0) Albumin/Globulin Ratio 0.6 (1.0-1.7) Laboratory Tests Test 09/18/18 05:15 Creatine Kinase 4893 U/L (39-308) Microbiology 09/12/18 Blood Culture - Final, Complete NO GROWTH AFTER 5 DAYS 09/12/18 CSF Gram Stain - Final, Complete 09/11/18 Urine Culture - Final, Complete 09/11/18 Urine Culture Result 1 ([place]) - Final, Complete Medications Current Medications Morphine Sulfate (Morphine Sulfate) 4 mg 1X ONCE IV Last administered on 09/11/18at 21:20; Start 09/11/18 at 21:30; Stop 09/11/18 at 21:31; Status DC Sodium Chloride 1,000 ml @ 1,000 mls/hr 1X ONCE IV Last administered on 09/11/18at 22:30; Start 09/11/18 at 22:30; Stop 09/11/18 at 23:29; Status DC Calcium Gluconate (Calcium Gluconate) 1,000 mg 1X ONCE IVP Last administered on 09/11/18 22:43; Start 09/11/18 at 23:00; Stop 09/11/18 at 23:01; Status DC Insulin Human Regular (HumuLIN R VIAL) 10 unit 1X ONCE IV Last administered on 09/11/18 23:51; Start 09/11/18 at 23:00; Stop 09/11/18 at 23:01; Status DC Dextrose (Dextrose 50%-Water Syringe) 25 gm 1X ONCE IV Last administered on 09/11/18at 22:42; Start 09/11/18 at 23:00; Stop 09/11/18 at 23:01; Status DC Sodium Bicarbonate (Sodium Bicarb Adult 8.4% Syr) 50 meq 1X ONCE IV Last administered on 09/11/18 23:49; Start 09/11/18 at 23:00; Stop 09/11/18 at 23:01; Status DC Sodium Chloride 1,000 ml @ 1,000 mls/hr 1X ONCE IV Last administered on 09/11/18at 23:50; Start 09/11/18 at 23:00; Stop 09/11/18 at 23:59; Status DC Albuterol Sulfate (Ventolin Neb Soln) 10 mg 1X ONCE CONT NEB Last administered on 09/12/18at 00:30; Start 09/11/18 at 23:00; Stop 09/11/18 at 23:01; Status DC Ceftriaxone Sodium (Rocephin) 1 gm 1X ONCE IVP Last administered on 09/11/18 22:43; Start 09/11/18 at 23:00; Stop 09/11/18 at 23:01; Status DC Sodium Chloride 1,000 ml @ 1,000 mls/hr 1X ONCE IV Last administered on 09/12/18at 01:00; Start 09/12/18 at 01:00; Stop 09/12/18 at 01:59; Status DC Lorazepam (Ativan Inj) 0.5 mg PRN Q6HRS PRN IV ANXIETY / AGITATION Last administered on 09/12/18 11:00; Start 09/12/18 at 01:15; Stop 09/13/18 at 08:48; Status DC Ondansetron HCl (Zofran) 4 mg PRN Q6HRS PRN IV NAUSEA/VOMITING 1ST CHOICE; Start 09/12/18 at 01:15; Stop 09/12/18 at 01:22; Status DC Sodium Chloride (Normal Saline Flush) 3 ml QSHIFT PRN IV AFTER MEDS AND BLOOD DRAWS; Start 09/12/18 at 01:15 Sodium Chloride 1,000 ml @ 175 mls/hr Q5H43M IV ; Start 09/12/18 at 01:08; Stop 09/12/18 at 01:23; Status DC Ondansetron HCl (Zofran) 4 mg PRN Q8HRS PRN IV NAUSEA/VOMITING 1ST CHOICE; Start 09/12/18 at 01:15; Stop 09/13/18 at 01:14; Status DC Sodium Chloride 1,000 ml @ 150 mls/hr Q6H40M IV ; Start 09/12/18 at 01:30; Stop 09/12/18 at 18:49; Status DC Morphine Sulfate (Morphine Sulfate) 4 mg PRN Q4HRS PRN IV SEVERE PAIN Last administered on 09/18/18at 05:34; Start 09/12/18 at 09:00 Sodium Bicarbonate (Sodium Bicarb Adult 8.4% Syr) 100 meq 1X ONCE IV Last administered on 09/12/18at 10:02; Start 09/12/18 at 10:00; Stop 09/12/18 at 10:01; Status DC Sodium Chloride 1,000 ml @ 1,000 mls/hr 1X ONCE IV Last administered on 09/12/18at 09:56; Start 09/12/18 at 10:00; Stop 09/12/18 at 10:59; Status DC Lidocaine/Sodium Bicarbonate (Buffered Lidocaine 1%) 3 ml STK-MED ONCE .ROUTE ; Start 09/12/18 at 11:07; Stop 09/12/18 at 11:08; Status DC Calcium Gluconate (Calcium Gluconate) 2,000 mg 1X ONCE IVP Last administered on 09/12/18at 13:38; Start 09/12/18 at 12:00; Stop 09/12/18 at 12:01; Status DC Ceftriaxone Sodium (Rocephin) 1 gm Q24H IVP Last administered on 09/12/18at 12:49; Start 09/12/18 at 13:00; Stop 09/13/18 at 07:45; Status DC Silver Sulfadiazine (Silvadene) 1 elinor BID TP Last administered on 09/13/18at 10:06; Start 09/12/18 at 13:00; Stop 09/13/18 at 15:04; Status DC Sodium Chloride 1,000 ml @ 1,000 mls/hr 1X ONCE IV Last administered on 09/12/18at 12:47; Start 09/12/18 at 12:45; Stop 09/12/18 at 13:44; Status DC Pantoprazole Sodium (Protonix) 40 mg DAILYAC PO ; Start 09/12/18 at 13:30; Stop 09/12/18 at 19:22; Status DC Polyethylene Glycol (miraLAX PACKET) 17 gm DAILY PO Last administered on 09/18/18at 08:44; Start 09/12/18 at 13:30 Lidocaine/Sodium Bicarbonate (Buffered Lidocaine 1%) 3 ml STK-MED ONCE .ROUTE ; Start 09/12/18 at 13:48; Stop 09/12/18 at 13:49; Status DC Haloperidol Lactate (Haldol Inj) 1 mg PRN Q8HRS PRN IVP AGITATION Last administered on 09/14/18at 07:56; Start 09/12/18 at 14:00 Lorazepam (Ativan Inj) 2 mg PRN Q2HRS PRN IV ANXIETY. Last administered on 09/16/18at 21:22; Start 09/12/18 at 14:00; Stop 09/17/18 at 10:17; Status DC Lidocaine/Sodium Bicarbonate (Buffered Lidocaine 1%) 6 ml 1X ONCE INJ ; Start 09/12/18 at 14:15; Stop 09/12/18 at 14:16; Status DC Dexmedetomidine HCl 200 mcg/ Sodium Chloride 50 ml @ 0 mls/hr CONT PRN IV PER PROTOCOL Last administered on 09/15/18at 10:28; Start 09/12/18 at 14:15; Stop 09/17/18 at 10:17; Status DC Sodium Chloride 500 ml @ 500 mls/hr 1X PRN PRN IV SEE COMMENTS; Start 09/12/18 at 14:15 Atropine Sulfate (ATROPINE 0.5mg SYRINGE) 0.5 mg PRN Q5MIN PRN IV SEE COMMENTS; Start 09/12/18 at 14:15 Sodium Chloride 1,000 ml @ 1,000 mls/hr Q1H PRN IV hypotension; Start 09/12/18 at 15:08; Stop 09/12/18 at 21:07; Status DC Diphenhydramine HCl (Benadryl) 25 mg 1X PRN PRN IV ITCHING; Start 09/12/18 at 15:15; Stop 09/13/18 at 11:19; Status DC Diphenhydramine HCl (Benadryl) 25 mg 1X PRN PRN IV ITCHING; Start 09/12/18 at 15:15; Stop 09/13/18 at 11:19; Status DC Sodium Chloride 1,000 ml @ 400 mls/hr Q2H30M PRN IV PATENCY; Start 09/12/18 at 15:08; Stop 09/13/18 at 03:07; Status DC Info (PHARMACY MONITORING -- do not chart) 1 each PRN DAILY PRN MC SEE COMMENTS; Start 09/12/18 at 15:15; Stop 09/13/18 at 11:18; Status DC Pantoprazole Sodium (PROTONIX VIAL for IV PUSH) 40 mg DAILYAC IVP Last administered on 09/17/18at 10:04; Start 09/13/18 at 07:30; Stop 09/17/18 at 11:54; Status DC Linezolid (Zyvox) 600 mg BID PO Last administered on 09/18/18at 08:43; Start 09/13/18 at 09:00; Stop 09/19/18 at 22:00 Ceftriaxone Sodium (Rocephin) 2 gm Q24H IVP Last administered on 09/16/18at 12:14; Start 09/13/18 at 13:00; Stop 09/17/18 at 10:06; Status DC Calcium Gluconate 2000 mg/Dextrose 120 ml @ 220 mls/hr 1X ONCE IV Last administered on 09/13/18at 10:05; Start 09/13/18 at 10:00; Stop 09/13/18 at 10:32; Status DC Sodium Chloride 1,000 ml @ 1,000 mls/hr Q1H PRN IV hypotension; Start 09/13/18 at 11:06; Stop 09/13/18 at 17:05; Status DC Diphenhydramine HCl (Benadryl) 25 mg 1X PRN PRN IV ITCHING; Start 09/13/18 at 11:15; Stop 09/14/18 at 11:14; Status DC Diphenhydramine HCl (Benadryl) 25 mg 1X PRN PRN IV ITCHING; Start 09/13/18 at 11:15; Stop 09/14/18 at 11:14; Status DC Sodium Chloride 1,000 ml @ 400 mls/hr Q2H30M PRN IV PATENCY; Start 09/13/18 at 11:06; Stop 09/13/18 at 23:05; Status DC Info (PHARMACY MONITORING -- do not chart) 1 each PRN DAILY PRN MC SEE COMMENTS; Start 09/13/18 at 11:15; Status Cancel Potassium Chloride 10 meq/ Calcium Chloride 12.5 meq/ Bicarbonate Dialysis Soln w/ out KCl 5,013.9286 ml @ 1,000 mls/hr Q5H1M IV ; Start 09/14/18 at 13:00; Status Cancel Potassium Chloride 20 meq/ Calcium Chloride 12.5 meq/ Bicarbonate Dialysis Soln w/ out KCl 5,018.9286 ml @ 1,500 mls/hr Q3H21M IV ; Start 09/14/18 at 13:00; Stop 09/14/18 at 13:00; Status DC Heparin Sodium (Porcine) (Heparin Sodium) 4,000 unit 1X ONCE IV Last administered on 09/14/18at 19:54; Start 09/14/18 at 12:00; Stop 09/14/18 at 12:11; Status DC Heparin Sodium/ Dextrose 500 ml @ 0 mls/hr CONT PRN IV SEE I/O RECORD Last administered on 09/15/18at 15:05; Start 09/14/18 at 12:00; Stop 09/16/18 at 08:03; Status DC Heparin Sodium (Porcine) (Heparin Sodium) 2,500 unit PRN Q6HRS PRN IV FOR UFH LEVEL LESS THAN 0.2; Start 09/14/18 at 12:00; Stop 09/17/18 at 13:16; Status DC Potassium Chloride 10 meq/ Calcium Chloride 12.5 meq/ Bicarbonate Dialysis Soln w/ out KCl 5,013.9286 ml @ 1,000 mls/hr Q5H1M IV ; Start 09/14/18 at 13:00; Stop 09/14/18 at 13:00; Status DC Potassium Chloride 10 meq/ Bicarbonate Dialysis Soln w/ out KCl 5,005 ml @ 1,000 mls/hr Q5H1M IV ; Start 09/14/18 at 13:00; Stop 09/14/18 at 13:00; Status DC Potassium Chloride 20 meq/ Bicarbonate Dialysis Soln w/ out KCl 5,010 ml @ 1,500 mls/hr Q3H21M IV ; Start 09/14/18 at 13:00; Stop 09/14/18 at 13:00; Status DC Potassium Chloride 10 meq/ Bicarbonate Dialysis Soln w/ out KCl 5,005 ml @ 1,500 mls/hr Q3H21M IV ; Start 09/14/18 at 13:00; Stop 09/14/18 at 13:00; Status DC Potassium Chloride 20 meq/ Bicarbonate Dialysis Soln w/ out KCl 5,010 ml @ 1,000 mls/hr Q5H1M IV Last administered on 09/15/18at 20:43; Start 09/14/18 at 13:00; Stop 09/16/18 at 08:03; Status DC Potassium Chloride 20 meq/ Bicarbonate Dialysis Soln w/ out KCl 5,010 ml @ 1,500 mls/hr Q3H21M IV ; Start 09/14/18 at 12:45; Stop 09/14/18 at 12:45; Status DC Potassium Chloride 40 meq/ Bicarbonate Dialysis Soln w/ out KCl 5,020 ml @ 1,500 mls/hr Q3H21M IV ; Start 09/14/18 at 13:00; Stop 09/14/18 at 13:10; Status DC Potassium Chloride 60 meq/ Bicarbonate Dialysis Soln w/ out KCl 5,030 ml @ 1,500 mls/hr Q3H22M IV ; Start 09/14/18 at 13:00; Stop 09/14/18 at 13:07; Status DC Potassium Chloride 30 meq/ Bicarbonate Dialysis Soln w/ out KCl 5,015 ml @ 1,500 mls/hr Q3H21M IV ; Start 09/14/18 at 13:15; Stop 09/14/18 at 18:00; Status DC Potassium Chloride 20 meq/ Bicarbonate Dialysis Soln w/ out KCl 5,010 ml @ 1,500 mls/hr Q3H21M IV Last administered on 09/14/18at 21:06; Start 09/14/18 at 13:10; Stop 09/14/18 at 18:00; Status DC Potassium Chloride 30 meq/ Bicarbonate Dialysis Soln w/ out KCl 5,015 ml @ 1,500 mls/hr Q3H21M IV ; Start 09/14/18 at 18:00; Stop 09/14/18 at 19:10; Status DC Potassium Chloride 20 meq/ Bicarbonate Dialysis Soln w/ out KCl 5,010 ml @ 1,500 mls/hr Q3H21M IV Last administered on 09/16/18at 00:15; Start 09/14/18 at 18:01; Stop 09/16/18 at 08:03; Status DC Potassium Chloride 20 meq/ Bicarbonate Dialysis Soln w/ out KCl 5,010 ml @ 1,500 mls/hr Q3H21M IV Last administered on 09/16/18at 00:18; Start 09/14/18 at 20:00; Stop 09/16/18 at 08:03; Status DC Lactobacillus Rhamnosus (Culturelle) 1 cap BID PO Last administered on 09/18/18at 08:40; Start 09/16/18 at 21:00 Oxycodone HCl (Roxicodone) 5 mg PRN Q4HRS PRN PO PAIN Last administered on 09/17/18at 22:12; Start 09/16/18 at 11:45 Lorazepam (Ativan Inj) 1 mg PRN Q8HRS PRN IV ANXIETY.; Start 09/16/18 at 16:00 Gabapentin (Neurontin) 300 mg QHS PO Last administered on 09/17/18at 21:06; Start 09/16/18 at 21:00 Labetalol HCl (Normodyne Iv Push) 10 mg PRN Q4HRS PRN IVP HYPERTENSION Last administered on 09/17/18at 03:33; Start 09/16/18 at 23:30; Stop 09/17/18 at 09:26; Status DC Labetalol HCl (Normodyne Iv Push) 20 mg PRN Q4HRS PRN IVP HYPERTENSION; Start 09/17/18 at 09:30 Ondansetron HCl (Zofran) 4 mg PRN Q6HRS PRN IV NAUSEA/VOMITING; Start 09/17/18 at 09:30 Acetaminophen (Tylenol) 500 mg PRN Q6HRS PRN PO MILD PAIN / TEMP; Start 09/17/18 at 09:30 Lidocaine (Lidoderm) 1 patch DAILY TD Last administered on 09/18/18at 08:44; Start 09/17/18 at 10:00 Miscellaneous (Lidoderm Patch Removal) 1 ea QHS MC Last administered on 09/17/18at 21:00; Start 09/17/18 at 21:00 Sodium Chloride 1,000 ml @ 1,000 mls/hr Q1H PRN IV hypotension; Start 09/17/18 at 11:26; Stop 09/17/18 at 17:25; Status DC Albumin Human 200 ml @ 200 mls/hr 1X PRN PRN IV Hypotension; Start 09/17/18 at 11:30; Stop 09/17/18 at 17:29; Status DC Sodium Chloride (Normal Saline Flush) 10 ml 1X PRN PRN IV AP catheter pack; Start 09/17/18 at 11:30; Stop 09/18/18 at 11:29; Status DC Sodium Chloride (Normal Saline Flush) 10 ml 1X PRN PRN IV PARTS PROFESSIONAL catheter pack; Start 09/17/18 at 11:30; Stop 09/18/18 at 11:29; Status DC Sodium Chloride 1,000 ml @ 400 mls/hr Q2H30M PRN IV PATENCY; Start 09/17/18 at 11:26; Stop 09/17/18 at 23:25; Status DC Info (PHARMACY MONITORING -- do not chart) 1 each PRN DAILY PRN MC SEE COMMENTS; Start 09/17/18 at 11:30; Status UNV Info (PHARMACY MONITORING -- do not chart) 1 each PRN DAILY PRN MC SEE COMMENTS; Start 09/17/18 at 11:30 Pantoprazole Sodium (Protonix) 40 mg DAILYAC PO Last administered on 09/18/18at 08:40; Start 09/18/18 at 07:30 Labetalol HCl (Trandate) 100 mg BID PO Last administered on 09/18/18at 09:49; Start 09/18/18 at 09:00 Lorazepam (Ativan) 0.5 mg PRN Q8HRS PRN PO ANXIETY / AGITATION; Start 09/18/18 at 09:00 Haloperidol (Haldol) 0.5 mg PRN QID PRN PO AGITATION, 2ND CHOICE; Start 09/18/18 at 09:00; Stop 09/18/18 at 09:03; Status DC Haloperidol Lactate (HALDOL 2mg ORAL CONC) 0.5 mg PRN QID PRN PO AGITATION, 2ND CHOICE; Start 09/18/18 at 09:03 Active Scripts Active Reported Protonix (Pantoprazole Sodium) 20 Mg Tablet.dr 2 Tab PO DAILY Zyprexa (Olanzapine) 20 Mg Tablet 2 Tab PO QHS Buspirone Hcl 30 Mg Tablet 1 Tab PO BID Vitals/I & O Vital Sign - Last 24 Hours 09/17/18 09/17/18 09/17/18 09/17/18 16:00 17:59 18:08 19:08 Temp 98.4 98.4 Pulse 109 Resp 18 18 B/P (MAP) 161/102 (121) Pulse Ox 99 O2 Delivery Room Air Room Air Room Air Room Air O2 Flow Rate 98.0 09/17/18 09/17/18 09/17/18 09/17/18 19:20 19:45 20:04 20:34 Temp 98.2 98.2 Pulse 105 Resp 18 B/P (MAP) 156/103 (120) Pulse Ox 97 O2 Delivery Room Air Room Air Room Air Room Air 09/17/18 09/17/18 09/18/18 09/18/18 22:12 23:25 00:50 03:25 Temp 98.3 98.3 98.3 98.3 Pulse 98 99 Resp 16 16 B/P (MAP) 136/82 (100) 151/93 (112) Pulse Ox 94 98 O2 Delivery Room Air Room Air Room Air Room Air 09/18/18 09/18/18 07:45 09:49 Temp 97.8 97.8 Pulse 83 83 Resp 18 B/P (MAP) 165/99 (121) 165/99 Pulse Ox 98 O2 Delivery Room Air Intake and Output 09/17/18 09/17/18 09/18/18 15:00 23:00 07:00 Intake Total 0 ml 400 ml Balance 0 ml 400 ml DEEPA QUINTERO MD Sep 18, 2018 12:04
[2018-09-18 15:15] VITALS: BP 142/83
--- NOTE | 2018-09-18 16:28 | NUR ---
SW following pt. Awaiting on clear direction from nephrology regarding OP HD. Pt is also self pay. Will continue to follow.
[2018-09-18] MEDS ORDERED: METOPROLOL TARTRATE 5 MG/5 ML VIAL. IVP PRN (19:15)
[2018-09-18 19:20] VITALS: BP 153/101
[2018-09-18] MEDS: ONDANSETRON PF 4 MG/2 ML VIAL. IV PRN (19:39)
[2018-09-18] MEDS: GABAPENTIN 300 MG CAPSULE. PO SCH (19:40)
--- NOTE | 2018-09-18 20:21 | PDOC ---
PROGRESS NOTES Assessment Assessment Generalized weakness. Rhabdomyolysis. Methamphetamine positive. Electrolytes imbalances. Hyponatremia. Hyperkalemia. Hypocalcemia. Hypoalbuminemia. AKD. Elevated hepatic enzymes. Other psychiatric problems. Abnormal T-spine MRI. LE edema. No evidence of MS this time. RECOMMENDATIONS/PLAN: Treat medical diseases. Repeat T-spine MRI ( no contrast due to renal failure). OT/PT. CSF OCB zero. Past Medical History GI: GERD Psych: Anxiety, Addictions, Depression Past Surgical History No pertinent history Family History No pertinent hx Social History Unemployed, uses methamphetamine, smokes occasionally, rare alcohol. Was said out of incarceration on 09/07/18. ALLERGY: NKDA MEDICATIONS: Refer to MAR REVIEW OF SYSTEMS: Refer to PMH and PSH. PHYSICAL EXAMINATION: General appearance in no acute distress. HEENT: Normocephalic and nontraumatic. Eyes, nose, ears, and throat are unremarkable. Neck is supple. No lymphadenopathy. No Crepitus. Cardiovascular: S1, S2, regular rate and rhythm. Pulmonary: Clear to auscultation bilaterally. Abdomen: Bowel sounds are positive. Extremities: No rash, lesions, or edema. No restriction of range of motion NEUROLOGICAL EXAMINATION: Awake. Sitting in chair playing cellphone. Oriented to time, place and person. PERRL. EOMI. CN: no focal findings. Muscle tone: within normal. Muscle strength: 4-5 DTR: 2 Plantar reflex: Flexor response bilaterally Gait: not examined in chair. Sensory exam: no acute abnormal findings. No cerebellar signs elicited. F-T-N test fine. Edema noted in LE, right > Left. Objective Objective Vital Signs Date Time Temp Pulse Resp B/P (MAP) Pulse Ox O2 Delivery O2 Flow Rate FiO2 09/18/18 19:40 88 151/103 09/18/18 19:40 100 Room Air 98.0 09/18/18 15:15 97.9 18 97.9 Intake and Output 09/18/18 07:00 Intake Total 400 ml Balance 400 ml Intake Oral 400 ml Vitals Signs Vitals VS - Last 72 Hours, by Label Date Time Temp Pulse Resp B/P (MAP) Pulse Ox O2 Delivery O2 Flow Rate FiO2 09/18/18 19:40 88 151/103 09/18/18 19:40 100 Room Air 98.0 09/18/18 16:00 Room Air 98.0 09/18/18 15:15 97.9 88 18 142/83 (102) 100 Room Air 97.9 09/18/18 14:57 93 Room Air 98.0 09/18/18 14:27 93 Room Air 98.0 09/18/18 11:10 97.8 101 18 136/88 (104) 93 Room Air 97.8 09/18/18 09:49 83 165/99 09/18/18 07:45 97.8 83 18 165/99 (121) 98 Room Air 97.8 09/18/18 03:25 98.3 99 16 151/93 (112) 98 Room Air 98.3 09/18/18 00:50 Room Air 09/17/18 23:25 98.3 98 16 136/82 (100) 94 Room Air 98.3 09/17/18 22:12 Room Air 09/17/18 20:04 Room Air 09/17/18 19:45 Room Air 09/17/18 19:20 98.2 105 18 156/103 (120) 97 Room Air 98.2 09/17/18 19:08 Room Air 09/17/18 18:08 18 Room Air 09/17/18 17:59 98.4 109 18 161/102 (121) 99 Room Air 98.4 09/17/18 16:00 Room Air 98.0 09/17/18 11:34 97.7 99 18 158/96 (116) 98 Room Air 97.7 09/17/18 08:51 18 09/17/18 07:57 97.7 90 18 180/100 (126) 97 Room Air 97.7 09/17/18 07:51 18 Room Air Laboratory Laboratory Laboratory Tests Test 09/18/18 05:15 Creatine Kinase 4893 U/L (39-308) Microbiology 09/12/18 Blood Culture - Final, Complete NO GROWTH AFTER 5 DAYS 09/12/18 CSF Gram Stain - Final, Complete 09/11/18 Urine Culture - Final, Complete 09/11/18 Urine Culture Result 1 ([place]) - Final, Complete Medication Medications Current Medications Haloperidol (Haldol) 0.5 mg PRN QID PRN PO AGITATION, 2ND CHOICE; Start 09/18/18 at 09:00; Stop 09/18/18 at 09:03; Status DC Haloperidol Lactate (HALDOL 2mg ORAL CONC) 0.5 mg PRN QID PRN PO AGITATION, 2ND CHOICE; Start 09/18/18 at 09:03 Labetalol HCl (Trandate) 100 mg BID PO Last administered on 09/18/18at 19:40; Start 09/18/18 at 09:00 Lorazepam (Ativan) 0.5 mg PRN Q8HRS PRN PO ANXIETY / AGITATION; Start 09/18/18 at 09:00 Metoprolol Tartrate (Lopressor Vial) 10 mg PRN Q6HRS PRN IVP HYPERTENSION; Start 09/18/18 at 19:15 Miscellaneous (Lidoderm Patch Removal) 1 ea QHS MC Last administered on 09/17/18at 21:00; Start 09/17/18 at 21:00 Pantoprazole Sodium (Protonix) 40 mg DAILYAC PO Last administered on 09/18/18at 08:40; Start 09/18/18 at 07:30 Comment Review of Relevant I have reviewed the following items ashlie (where applicable) has been applied. KIM ELDER MD Sep 18, 2018 20:21
[2018-09-18] MEDS: PATCH REMOVAL. MC SCH (21:00)
[2018-09-18 22:10] VITALS: BP 141/97
[2018-09-18] MEDS: oxyCODONE IR 5 MG TABLET PO PRN (22:10)
[2018-09-19 03:00] VITALS: BP 156/103
[2018-09-19] MEDS: MORPHINE SULFATE 4 MG/ML VIAL. IV PRN ×5 (06:54→23:13)
[2018-09-19 07:00] VITALS: BP 150/91
[2018-09-19 07:13] LABS: ALBUMIN 1.9 g/dL (3.4-5.0); CREATININE 6.8 mg/dL (0.7-1.3); GFR 9.6; PHOSPHORUS 5.3 mg/dL (2.6-4.7)
[2018-09-19] MEDS: LIDOCAINE (700MG/PATCH) PATCH. TD SCH (09:00)
[2018-09-19] MEDS: POLYETHYLENE GLYCOL 3350 17 GM PACKET. PO SCH (09:00)
--- NOTE | 2018-09-19 10:11 | PDOC ---
PROGRESS NOTES Chief Complaint Chief Complaint NEw ESRD-initiation of HD/ ccrt at some point Hypotension, resolved Anasarca Hepatorenal syndrome Elevated troponin in the background of sepsis UTI Methamphetamine abuse Metabolic encephalopathy, improved etoh drinker Sepsis with hypotension, resolved MOD to sever PCM Oliguric renal failure Accelerated hypertension, better History of Present Illness History of Present Illness NOT confused anymore Complaints he is swollen and he is He does have anasarca Still oliguric and Fernandez catheter in-discussed with renal okay to DC Fernandez Discussed with renal re anasarca an oliguria, they will pull fluid today during dialysis Creatinine 6.8, from 5.6 not improving, still oliguric Patient is a self-pay Discussed with renal, plans for tunneled catheter Discussed with renal, prefer patient to be here over the weekend to see if he improves Otherwise self-pay and he will have to come to the ER for dialysis CK improving, 400s [place] [id number] on admit BP still high, i started labetolol 100 BID monday Plan DC Fernandez Pull fluid later during dialysis Plans of tunneled catheter HD insertion Inc labetolol to 200 BID Discussed with renal regarding the above, would prefer to keep the patient throughout the weekend-we'll discuss with case management on LOS Vitals Vitals Vital Signs Date Time Temp Pulse Resp B/P (MAP) Pulse Ox O2 Delivery O2 Flow Rate FiO2 09/19/18 07:24 18 Room Air 09/19/18 07:00 97.7 91 150/91 (110) 93 97.7 09/18/18 19:40 98.0 Physical Exam Physical Exam GENERAL: Standing with PT then sat down, NAD, coop EENT: Pupils equal, oral cavity clear NECK: Supple. LUNGS: Clear bilaterally. No wheezing. HEART: S1, S2, regular, tachy 108s ABDOMEN: Soft, nontender, BS present : Fernandez EXTREMITIES: Generalized trace edema, no cyanosis. Right index with min swelling. Lesions are stable - mild maceration CENTRAL NERVOUS SYSTEM: Alert, answering appropriately RIJ/HDC without signs of complications PIV General: Oriented X3, Cooperative, mild distress Heart: Regular rate, Normal S1, No murmurs Lungs: Clear Abdomen: Normal bowel sounds, Soft, No hepatosplenomegaly, Other (obese, no fluid wave) Extremities: No clubbing, No cyanosis, No edema, Other (burn to right index finger APPEARS OLD associated cellulitis) Labs LABS Laboratory Tests Test 09/19/18 06:20 09/19/18 07:30 Sodium Level 132 mmol/L (136-145) Potassium Level 4.0 mmol/L (3.5-5.1) Chloride Level 96 mmol/L (98-107) Carbon Dioxide Level 28 mmol/L (21-32) Anion Gap 8 (6-14) Blood Urea Nitrogen 34 mg/dL (8-26) Creatinine 6.8 mg/dL (0.7-1.3) Estimated GFR (Cockcroft-Gault) 9.6 Glucose Level 95 mg/dL (70-99) Calcium Level 9.0 mg/dL (8.5-10.1) Phosphorus Level 5.3 mg/dL (2.6-4.7) Creatine Kinase 2551 U/L (39-308) Albumin 1.9 g/dL (3.4-5.0) Glucose (Fingerstick) 168 mg/dL (70-99) Review of Systems Review of Systems Anasarca, otherwise the rest of ROS 14 point negative Assessment and Plan Assessmemt and Plan Problems Medical Problems: (1) Elevated troponin Status: Acute (2) Hepatorenal syndrome Status: Acute (3) Hyperkalemia Status: Acute (4) Hyponatremia Status: Acute (5) Methamphetamine abuse Status: Acute (6) Neurological complaint Status: Acute (7) Rhabdomyolysis Status: Acute (8) Urinary retention Status: Acute (9) Urinary tract infection Status: Acute Comment Review of Relevant I have reviewed the following items ashlie (where applicable) has been applied. Labs Laboratory Tests Test 09/18/18 05:15 09/19/18 06:20 09/19/18 07:30 Creatine Kinase 4893 U/L (39-308) 2551 U/L (39-308) Sodium Level 132 mmol/L (136-145) Potassium Level 4.0 mmol/L (3.5-5.1) Chloride Level 96 mmol/L (98-107) Carbon Dioxide Level 28 mmol/L (21-32) Anion Gap 8 (6-14) Blood Urea Nitrogen 34 mg/dL (8-26) Creatinine 6.8 mg/dL (0.7-1.3) Estimated GFR (Cockcroft-Gault) 9.6 Glucose Level 95 mg/dL (70-99) Calcium Level 9.0 mg/dL (8.5-10.1) Phosphorus Level 5.3 mg/dL (2.6-4.7) Albumin 1.9 g/dL (3.4-5.0) Glucose (Fingerstick) 168 mg/dL (70-99) Laboratory Tests Test 09/19/18 06:20 09/19/18 07:30 Sodium Level 132 mmol/L (136-145) Potassium Level 4.0 mmol/L (3.5-5.1) Chloride Level 96 mmol/L (98-107) Carbon Dioxide Level 28 mmol/L (21-32) Anion Gap 8 (6-14) Blood Urea Nitrogen 34 mg/dL (8-26) Creatinine 6.8 mg/dL (0.7-1.3) Estimated GFR (Cockcroft-Gault) 9.6 Glucose Level 95 mg/dL (70-99) Calcium Level 9.0 mg/dL (8.5-10.1) Phosphorus Level 5.3 mg/dL (2.6-4.7) Creatine Kinase 2551 U/L (39-308) Albumin 1.9 g/dL (3.4-5.0) Glucose (Fingerstick) 168 mg/dL (70-99) Microbiology 09/12/18 Blood Culture - Final, Complete NO GROWTH AFTER 5 DAYS 09/12/18 CSF Gram Stain - Final, Complete 09/11/18 Urine Culture - Final, Complete 09/11/18 Urine Culture Result 1 ([place]) - Final, Complete Medications Current Medications Morphine Sulfate (Morphine Sulfate) 4 mg 1X ONCE IV Last administered on 09/11/18at 21:20; Start 09/11/18 at 21:30; Stop 09/11/18 at 21:31; Status DC Sodium Chloride 1,000 ml @ 1,000 mls/hr 1X ONCE IV Last administered on 09/11/18at 22:30; Start 09/11/18 at 22:30; Stop 09/11/18 at 23:29; Status DC Calcium Gluconate (Calcium Gluconate) 1,000 mg 1X ONCE IVP Last administered on 09/11/18at 22:43; Start 09/11/18 at 23:00; Stop 09/11/18 at 23:01; Status DC Insulin Human Regular (HumuLIN R VIAL) 10 unit 1X ONCE IV Last administered on 09/11/18at 23:51; Start 09/11/18 at 23:00; Stop 09/11/18 at 23:01; Status DC Dextrose (Dextrose 50%-Water Syringe) 25 gm 1X ONCE IV Last administered on 09/11/18at 22:42; Start 09/11/18 at 23:00; Stop 09/11/18 at 23:01; Status DC Sodium Bicarbonate (Sodium Bicarb Adult 8.4% Syr) 50 meq 1X ONCE IV Last administered on 09/11/18at 23:49; Start 09/11/18 at 23:00; Stop 09/11/18 at 23:01; Status DC Sodium Chloride 1,000 ml @ 1,000 mls/hr 1X ONCE IV Last administered on 09/11/18at 23:50; Start 09/11/18 at 23:00; Stop 09/11/18 at 23:59; Status DC Albuterol Sulfate (Ventolin Neb Soln) 10 mg 1X ONCE CONT NEB Last administered on 09/12/18at 00:30; Start 09/11/18 at 23:00; Stop 09/11/18 at 23:01; Status DC Ceftriaxone Sodium (Rocephin) 1 gm 1X ONCE IVP Last administered on 09/11/18at 22:43; Start 09/11/18 at 23:00; Stop 09/11/18 at 23:01; Status DC Sodium Chloride 1,000 ml @ 1,000 mls/hr 1X ONCE IV Last administered on 09/12/18at 01:00; Start 09/12/18 at 01:00; Stop 09/12/18 at 01:59; Status DC Lorazepam (Ativan Inj) 0.5 mg PRN Q6HRS PRN IV ANXIETY / AGITATION Last administered on 09/12/18at 11:00; Start 09/12/18 at 01:15; Stop 09/13/18 at 08:48; Status DC Ondansetron HCl (Zofran) 4 mg PRN Q6HRS PRN IV NAUSEA/VOMITING 1ST CHOICE; Start 09/12/18 at 01:15; Stop 09/12/18 at 01:22; Status DC Sodium Chloride (Normal Saline Flush) 3 ml QSHIFT PRN IV AFTER MEDS AND BLOOD DRAWS; Start 09/12/18 at 01:15 Sodium Chloride 1,000 ml @ 175 mls/hr Q5H43M IV ; Start 09/12/18 at 01:08; Stop 09/12/18 at 01:23; Status DC Ondansetron HCl (Zofran) 4 mg PRN Q8HRS PRN IV NAUSEA/VOMITING 1ST CHOICE; Start 09/12/18 at 01:15; Stop 09/13/18 at 01:14; Status DC Sodium Chloride 1,000 ml @ 150 mls/hr Q6H40M IV ; Start 09/12/18 at 01:30; Stop 09/12/18 at 18:49; Status DC Morphine Sulfate (Morphine Sulfate) 4 mg PRN Q4HRS PRN IV SEVERE PAIN Last administered on 09/19/18at 06:54; Start 09/12/18 at 09:00 Sodium Bicarbonate (Sodium Bicarb Adult 8.4% Syr) 100 meq 1X ONCE IV Last administered on 09/12/18at 10:02; Start 09/12/18 at 10:00; Stop 09/12/18 at 10:01; Status DC Sodium Chloride 1,000 ml @ 1,000 mls/hr 1X ONCE IV Last administered on 09/12/18at 09:56; Start 09/12/18 at 10:00; Stop 09/12/18 at 10:59; Status DC Lidocaine/Sodium Bicarbonate (Buffered Lidocaine 1%) 3 ml STK-MED ONCE .ROUTE ; Start 09/12/18 at 11:07; Stop 09/12/18 at 11:08; Status DC Calcium Gluconate (Calcium Gluconate) 2,000 mg 1X ONCE IVP Last administered on 09/12/18at 13:38; Start 09/12/18 at 12:00; Stop 09/12/18 at 12:01; Status DC Ceftriaxone Sodium (Rocephin) 1 gm Q24H IVP Last administered on 09/12/18at 12:49; Start 09/12/18 at 13:00; Stop 09/13/18 at 07:45; Status DC Silver Sulfadiazine (Silvadene) 1 elinor BID TP Last administered on 09/13/18at 10:06; Start 09/12/18 at 13:00; Stop 09/13/18 at 15:04; Status DC Sodium Chloride 1,000 ml @ 1,000 mls/hr 1X ONCE IV Last administered on 09/12/18at 12:47; Start 09/12/18 at 12:45; Stop 09/12/18 at 13:44; Status DC Pantoprazole Sodium (Protonix) 40 mg DAILYAC PO ; Start 09/12/18 at 13:30; Stop 09/12/18 at 19:22; Status DC Polyethylene Glycol (miraLAX PACKET) 17 gm DAILY PO Last administered on 09/03 08/22at 08:44; Start 09/12/18 at 13:30 Lidocaine/Sodium Bicarbonate (Buffered Lidocaine 1%) 3 ml STK-MED ONCE .ROUTE ; Start 09/12/18 at 13:48; Stop 09/12/18 at 13:49; Status DC Haloperidol Lactate (Haldol Inj) 1 mg PRN Q8HRS PRN IVP AGITATION Last admini stered on 09/14/18at 07:56; Start 09/12/18 at 14:00 Lorazepam (Ativan Inj) 2 mg PRN Q2HRS PRN IV ANXIETY. Last administered on at 21:22; Start 09/12/18 at 14:00; Stop 09/17/18 at 10:17; Status DC Lidocaine/Sodium Bicarbonate (Buffered Lidocaine 1%) 6 ml 1X ONCE INJ ; Start 09/12/18 at 14:15; Stop 09/12/18 at 14:16; Status DC Dexmedetomidine HCl 200 mcg/ Sodium Chloride 50 ml @ 0 mls/hr CONT PRN IV PER PROTOCOL Last administered on 09/15/18at 10:28; Start 09/12/18 at 14:15; Stop 09/17/18 at 10:17; Status DC Sodium Chloride 500 ml @ 500 mls/hr 1X PRN PRN IV SEE COMMENTS; Start 09/12/18 at 14:15 Atropine Sulfate (ATROPINE 0.5mg SYRINGE) 0.5 mg PRN Q5MIN PRN IV SEE COMMENTS; Start 09/12/18 at 14:15 Sodium Chloride 1,000 ml @ 1,000 mls/hr Q1H PRN IV hypotension; Start 09/12/18 at 15:08; Stop 09/12/18 at 21:07; Status DC Diphenhydramine HCl (Benadryl) 25 mg 1X PRN PRN IV ITCHING; Start 09/12/18 at 15:15; Stop 09/13/18 at 11:19; Status DC Diphenhydramine HCl (Benadryl) 25 mg 1X PRN PRN IV ITCHING; Start 09/12/18 at 15:15; Stop 09/13/18 at 11:19; Status DC Sodium Chloride 1,000 ml @ 400 mls/hr Q2H30M PRN IV PATENCY; Start 09/12/18 at 15:08; Stop 09/13/18 at 03:07; Status DC Info (PHARMACY MONITORING -- do not chart) 1 each PRN DAILY PRN MC SEE C OMMENTS; Start 09/12/18 at 15:15; Stop 09/13/18 at 11:18; Status DC Pantoprazole Sodium (PROTONIX VIAL for IV PUSH) 40 mg DAILYAC IVP Last administered on 09/17/18at 10:04; Start 09/13/18 at 07:30; Stop 09/17/18 at 11:54; Status DC Linezolid (Zyvox) 600 mg BID PO Last administered on 09/18/18at 19:40; Start 09/13/18 at 09:00; Stop 09/19/18 at 22:00 Ceftriaxone Sodium (Rocephin) 2 gm Q24H IVP Last administered on 09/16/18at 12:14; Start 09/13/18 at 13:00; Stop 09/17/18 at 10:06; Status DC Calcium Gluconate 2000 mg/Dextrose 120 ml @ 220 mls/hr 1X ONCE IV Last administered on 09/13/18at 10:05; Start 09/13/18 at 10:00; Stop 09/13/18 at 10:32; Status DC Sodium Chloride 1,000 ml @ 1,000 mls/hr Q1H PRN IV hypotension; Start 09/13/18 at 11:06; Stop 09/13/18 at 17:05; Status DC Diphenhydramine HCl (Benadryl) 25 mg 1X PRN PRN IV ITCHING; Start 09/13/18 at 11:15; Stop 09/14/18 at 11:14; Status DC Diphenhydramine HCl (Benadryl) 25 mg 1X PRN PRN IV ITCHING; Start 09/13/18 at 11:15; Stop 09/14/18 at 11:14; Status DC Sodium Chloride 1,000 ml @ 400 mls/hr Q2H30M PRN IV PATENCY; Start 09/13/18 at 11:06; Stop 09/13/18 at 23:05; Status DC Info (PHARMACY MONITORING -- do not chart) 1 each PRN DAILY PRN MC SEE COMMENTS; Start 09/13/18 at 11:15; Status Cancel Potassium Chloride 10 meq/ Calcium Chloride 12.5 meq/ Bicarbonate Dialysis Soln w/ out KCl 5,013.9286 ml @ 1,000 mls/hr Q5H1M IV ; Start 09/14/18 at 13:00; Status Cancel Potassium Chloride 20 meq/ Calcium Chloride 12.5 meq/ Bicarbonate Dialysis Soln w/ out KCl 5,018.9286 ml @ 1,500 mls/hr Q3H21M IV ; Start 09/14/18 at 13:00; Stop 09/14/18 at 13:00; Status DC Heparin Sodium (Porcine) (Heparin Sodium) 4,000 unit 1X ONCE IV Last administered on 09/14/18at 19:54; Start 09/14/18 at 12:00; Stop 09/14/18 at 12:11; Status DC Heparin Sodium/ Dextrose 500 ml @ 0 mls/hr CONT PRN IV SEE I/O RECORD Last administered on 09/15/18at 15:05; Start 09/14/18 at 12:00; Stop 09/16/18 at 08:03; Status DC Heparin Sodium (Porcine) (Heparin Sodium) 2,500 unit PRN Q6HRS PRN IV FOR UFH LEVEL LESS THAN 0.2; Start 09/14/18 at 12:00; Stop 09/17/18 at 13:16; Status DC Potassium Chloride 10 meq/ Calcium Chloride 12.5 meq/ Bicarbonate Dialysis Soln w/ out KCl 5,013.9286 ml @ 1,000 mls/hr Q5H1M IV ; Start 09/14/18 at 13:00; Stop 09/14/18 at 13:00; Status DC Potassium Chloride 10 meq/ Bicarbonate Dialysis Soln w/ out KCl 5,005 ml @ 1,000 mls/hr Q5H1M IV ; Start 09/14/18 at 13:00; Stop 09/14/18 at 13:00; Status DC Potassium Chloride 20 meq/ Bicarbonate Dialysis Soln w/ out KCl 5,010 ml @ 1,5 00 mls/hr Q3H21M IV ; Start 09/14/18 at 13:00; Stop 09/14/18 at 13:00; Status DC Potassium Chloride 10 meq/ Bicarbonate Dialysis Soln w/ out KCl 5,005 ml @ 1,500 mls/hr Q3H21M IV ; Start 09/14/18 at 13:00; Stop 09/14/18 at 13:00; Status DC Potassium Chloride 20 meq/ Bicarbonate Dialysis Soln w/ out KCl 5,010 ml @ 1,000 mls/hr Q5H1M IV Last administered on 09/15/18at 20:43; Start 09/14/18 at 13:00; Stop 09/16/18 at 08:03; Status DC Potassium Chloride 20 meq/ Bicarbonate Dialysis Soln w/ out KCl 5,010 ml @ 1,500 mls/hr Q3H21M IV ; Start 09/14/18 at 12:45; Stop 09/14/18 at 12:45; Status DC Potassium Chloride 40 meq/ Bicarbonate Dialysis Soln w/ out KCl 5,020 ml @ 1,500 mls/hr Q3H21M IV ; Start 09/14/18 at 13:00; Stop 09/14/18 at 13:10; Status DC Potassium Chloride 60 meq/ Bicarbonate Dialysis Soln w/ out KCl 5,030 ml @ 1,500 mls/hr Q3H22M IV ; Start 09/14/18 at 13:00; Stop 09/14/18 at 13:07; Status DC Potassium Chloride 30 meq/ Bicarbonate Dialysis Soln w/ out KCl 5,015 ml @ 1,500 mls/hr Q3H21M IV ; Start 09/14/18 at 13:15; Stop 09/14/18 at 18:00; Status DC Potassium Chloride 20 meq/ Bicarbonate Dialysis Soln w/ out KCl 5,010 ml @ 1,500 mls/hr Q3H21M IV Last administered on 09/14/18at 21:06; Start 09/14/18 at 13:10; Stop 09/14/18 at 18:00; Status DC Potassium Chloride 30 meq/ Bicarbonate Dialysis Soln w/ out KCl 5,015 ml @ 1,500 mls/hr Q3H21M IV ; Start 09/14/18 at 18:00; Stop 09/14/18 at 19:10; Status DC Potassium Chloride 20 meq/ Bicarbonate Dialysis Soln w/ out KCl 5,010 ml @ 1,500 mls/hr Q3H21M IV Last administered on 09/16/18at 00:15; Start 09/14/18 at 18:01; Stop 09/16/18 at 08:03; Status DC Potassium Chloride 20 meq/ Bicarbonate Dialysis Soln w/ out KCl 5,010 ml @ 1,500 mls/hr Q3H21M IV Last administered on 09/16/18at 00:18; Start 09/14/18 at 20:00; Stop 09/16/18 at 08:03; Status DC Lactobacillus Rhamnosus (Culturelle) 1 cap BID PO Last administered on 09/18/18at 19:40; Start 09/16/18 at 21:00 Oxycodone HCl (Roxicodone) 5 mg PRN Q4HRS PRN PO PAIN Last administered on 09/18/18at 22:10; Start 09/16/18 at 11:45 Lorazepam (Ativan Inj) 1 mg PRN Q8HRS PRN IV ANXIETY.; Start 09/16/18 at 16:00 Gabapentin (Neurontin) 300 mg QHS PO Last administered on 09/18/18at 19:40; Start 09/16/18 at 21:00 Labetalol HCl (Normodyne Iv Push) 10 mg PRN Q4HRS PRN IVP HYPERTENSION Last administered on 09/17/18at 03:33; Start 09/16/18 at 23:30; Stop 09/17/18 at 09:26; Status DC Labetalol HCl (Normodyne Iv Push) 20 mg PRN Q4HRS PRN IVP HYPERTENSION; Start 09/17/18 at 09:30; Stop 09/18/18 at 19:10; Status DC Ondansetron HCl (Zofran) 4 mg PRN Q6HRS PRN IV NAUSEA/VOMITING Last administered on 09/18/18at 19:39; Start 09/17/18 at 09:30 Acetaminophen (Tylenol) 500 mg PRN Q6HRS PRN PO MILD PAIN / TEMP; Start 09/17/18 at 09:30 Lidocaine (Lidoderm) 1 patch DAILY TD Last administered on 7/16/19at 08:44; Start 09/17/18 at 10:00 Miscellaneous (Lidoderm Patch Removal) 1 ea QHS MC Last administered on at 21:00; Start 09/17/18 at 21:00 Sodium Chloride 1,000 ml @ 1,000 mls/hr Q1H PRN IV hypotension; Start 09/17/18 at 11:26; Stop 09/17/18 at 17:25; Status DC Albumin Human 200 ml @ 200 mls/hr 1X PRN PRN IV Hypotension; Start 09/17/18 at 11:30; Stop 09/17/18 at 17:29; Status DC Sodium Chloride (Normal Saline Flush) 10 ml 1X PRN PRN IV AP catheter pack; Start 09/17/18 at 11:30; Stop 09/18/18 at 11:29; Status DC Sodium Chloride (Normal Saline Flush) 10 ml 1X PRN PRN IV LOOM OPERATOR catheter pack; Start 09/17/18 at 11:30; Stop 09/18/18 at 11:29; Status DC Sodium Chloride 1,000 ml @ 400 mls/hr Q2H30M PRN IV PATENCY; Start 09/17/18 at 11:26; Stop 09/17/18 at 23:25; Status DC Info (PHARMACY MONITORING -- do not chart) 1 each PRN DAILY PRN MC SEE COMMENTS; Start 09/17/18 at 11:30; Status UNV Info (PHARMACY MONITORING -- do not chart) 1 each PRN DAILY PRN MC SEE COMMENTS; Start 09/17/18 at 11:30 Pantoprazole Sodium (Protonix) 40 mg DAILYAC PO Last administered on 09/18/18at 08:40; Start 09/18/18 at 07:30 Labetalol HCl (Trandate) 100 mg BID PO Last administered on 09/18/18at 19:40; Start 09/18/18 at 09:00; Stop 09/19/18 at 09:13; Status DC Lorazepam (Ativan) 0.5 mg PRN Q8HRS PRN PO ANXIETY / AGITATION; Start 09/18/18 at 09:00 Haloperidol (Haldol) 0.5 mg PRN QID PRN PO AGITATION, 2ND CHOICE; Start 09/18/18 at 09:00; Stop 09/18/18 at 09:03; Status DC Haloperidol Lactate (HALDOL 2mg ORAL CONC) 0.5 mg PRN QID PRN PO AGITATION, 2ND CHOICE; Start 09/18/18 at 09:03 Metoprolol Tartrate (Lopressor Vial) 10 mg PRN Q6HRS PRN IVP HYPERTENSION; Start 09/18/18 at 19:15 Labetalol HCl (Trandate) 200 mg BID PO ; Start 09/19/18 at 10:00 Active Scripts Active Reported Protonix (Pantoprazole Sodium) 20 Mg Tablet. 2 Tab PO DAILY Zyprexa (Olanzapine) 20 Mg Tablet 2 Tab PO QHS Buspirone Hcl 30 Mg Tablet 1 Tab PO BID Vitals/I & O Vital Sign - Last 24 Hours 09/18/18 09/18/18 09/18/18 09/18/18 11:10 14:27 14:57 15:15 Temp 97.8 97.9 97.8 97.9 Pulse 101 88 Resp 18 18 B/P (MAP) 136/88 (104) 142/83 (102) Pulse Ox 93 93 93 100 O2 Delivery Room Air Room Air Room Air O2 Flow Rate 98.0 98.0 09/18/18 09/18/18 09/18/18 09/18/18 16:00 19:20 19:40 19:40 Temp 98.2 98.2 Pulse 93 88 Resp 20 B/P (MAP) 153/101 (118) 151/103 Pulse Ox 96 100 O2 Delivery Room Air Room Air Room Air O2 Flow Rate 98.0 98.0 09/18/18 09/18/18 09/18/18 09/18/18 22:00 22:10 22:10 23:10 Temp 97.8 97.8 Pulse 90 Resp 18 18 18 B/P (MAP) 141/97 (112) Pulse Ox 93 O2 Delivery Room Air Room Air Room Air Room Air 09/19/18 09/19/18 09/19/18 09/19/18 03:00 06:54 07:00 07:24 Temp 98.0 97.7 98.0 97.7 Pulse 100 91 Resp 18 18 18 18 B/P (MAP) 156/103 (120) 150/91 (110) Pulse Ox 95 93 O2 Delivery Room Air Room Air Room Air Room Air DEEPA QUINTERO MD Sep 19, 2018 10:11
[2018-09-19] MEDS ORDERED: IV NORMAL SALINE 1000ML BAG 1,000 ML IV PRN ×2 (10:18)
[2018-09-19] MEDS ORDERED: DIALYSIS PATIENT. MC PRN (10:30)
[2018-09-19] MEDS ORDERED: diphenhydrAMINE 50 MG/ML VIAL IV PRN ×2 (10:30)
[2018-09-19 11:00] VITALS: BP 143/91
[2018-09-19] MEDS: LINEZOLID 600 MG TABLET PO SCH ×2 (11:23→20:55)
[2018-09-19] MEDS: PANTOPRAZOLE 40 MG TABLET.DR. PO SCH (11:23)
[2018-09-19] MEDS: LACTOBACILLUS RHAMNOSUS GG 1 CAPSULE. PO SCH ×2 (11:23→20:55)
--- NOTE | 2018-09-19 13:03 | PDOC ---
SUBJECTIVE ROS No acute events overnight OBJECTIVE Vital Signs Vital Signs Date Time Temp Pulse Resp B/P (MAP) Pulse Ox O2 Delivery O2 Flow Rate FiO2 09/19/18 11:09 18 Room Air 09/19/18 11:00 98.2 91 143/91 (108) 94 98.2 09/18/18 19:40 98.0 PHYSICAL EXAM Physical Exam GENERAL: In chair, NAD, EENT: OM moist NECK: Supple. LUNGS: Clear bilaterally. No wheezing. HEART: S1, S2, regular, ABDOMEN: Soft, nontender, BS present : Fernandez EXTREMITIES: Generalized trace edema, NEURO: Alert, answering appropriately RIJ/HDC DIAGNOSIS/ASSESSMENT Assessment & Plan CARO - ATN2/2 Rhabdo , Meth use Urinary retention at Presentation,Anuric Fernandez removed, Monitor for UOP with intermittent Bladder scan Requiring HD - 1 st Tx 09/12 ,CRRT x 1 Seen on HD, tolerating well, continue as ordered Need Tunnelled HDC , Per Dr. Valencia pt is uninsured and will have to come to ER for HD Eval Rhabdo- CPK>100,000 at presentation Hyperkalemia- Normal K Hyponatremia- stable, mildly low Severe Metabolic acidosis- 2/2 all above Resolved Transaminitis - Improving LFT's Hypocalcemia- severe 2/2 Rhabdo Normal Ca now Discussed with Dr. Valencia COMMENT/RELEVANT DATA Meds Current Medications Medications (Trade) Dose Ordered Sig/Mirela Start Time Stop Time Status Last Admin Dose Admin Acetaminophen (Tylenol) 500 mg PRN Q6HRS PRN 09/17/18 09:30 Albumin Human 200 ml @ 200 mls/hr 1X PRN PRN 09/17/18 11:30 09/17/18 17:29 DC Albuterol Sulfate (Ventolin Neb Soln) 10 mg 1X ONCE 09/11/18 23:00 09/11/18 23:01 DC 09/12/18 00:30 10 MG Atropine Sulfate (ATROPINE 0.5mg SYRINGE) 0.5 mg PRN Q5MIN PRN 09/12/18 14:15 Calcium Gluconate (Calcium Gluconate) 2,000 mg 1X ONCE 09/12/18 12:00 09/12/18 12:01 DC 09/12/18 13:38 2,000 MG Calcium Gluconate 2000 mg/Dextrose 120 ml @ 220 mls/hr 1X ONCE 09/13/18 10:00 09/13/18 10:32 DC 09/13/18 10:05 220 MLS/HR Ceftriaxone Sodium (Rocephin) 2 gm Q24H 09/13/18 13:00 09/17/18 10:06 DC 09/16/18 12:14 2 GM Dexmedetomidine HCl 200 mcg/ Sodium Chloride 50 ml @ 0 mls/hr CONT PRN 09/12/18 14:15 09/17/18 10:17 DC 09/15/18 10:28 12.6 MLS/HR Dextrose (Dextrose 50%-Water Syringe) 25 gm 1X ONCE 09/11/18 23:00 09/11/18 23:01 DC 09/11/18 22:42 25 GM Diphenhydramine HCl (Benadryl) 25 mg 1X PRN PRN 09/19/18 10:30 09/20/18 10:29 Gabapentin (Neurontin) 300 mg QHS 09/16/18 21:00 09/18/18 19:40 300 MG Haloperidol (Haldol) 0.5 mg PRN QID PRN 09/18/18 09:00 09/18/18 09:03 DC Haloperidol Lactate (HALDOL 2mg ORAL CONC) 0.5 mg PRN QID PRN 09/18/18 09:03 Haloperidol Lactate (Haldol Inj) 1 mg PRN Q8HRS PRN 09/12/18 14:00 09/14/18 07:56 1 MG Heparin Sodium (Porcine) (Heparin Sodium) 2,500 unit PRN Q6HRS PRN 09/14/18 12:00 09/17/18 13:16 DC Heparin Sodium/ Dextrose 500 ml @ 0 mls/hr CONT PRN 09/14/18 12:00 09/16/18 08:03 DC 09/15/18 15:05 28.3 MLS/HR Info (PHARMACY MONITORING -- do not chart) 1 each PRN DAILY PRN 09/19/18 10:30 UNV Insulin Human Regular (HumuLIN R VIAL) 10 unit 1X ONCE 09/11/18 23:00 09/11/18 23:01 DC 09/11/18 23:51 10 UNIT Labetalol HCl (Normodyne Iv Push) 20 mg PRN Q4HRS PRN 09/17/18 09:30 09/18/18 19:10 DC Labetalol HCl (Trandate) 200 mg BID 09/19/18 10:00 Lactobacillus Rhamnosus (Culturelle) 1 cap BID 09/16/18 21:00 09/19/18 11:23 1 CAP Lidocaine (Lidoderm) 1 patch DAILY 09/17/18 10:00 09/18/18 08:44 1 PATCH Lidocaine/Sodium Bicarbonate (Buffered Lidocaine 1%) 6 ml 1X ONCE 09/12/18 14:15 09/12/18 14:16 DC Linezolid (Zyvox) 600 mg BID 09/13/18 09:00 09/19/18 22:00 09/19/18 11:23 600 MG Lorazepam (Ativan Inj) 1 mg PRN Q8HRS PRN 09/16/18 16:00 Lorazepam (Ativan) 0.5 mg PRN Q8HRS PRN 09/18/18 09:00 Metoprolol Tartrate (Lopressor Vial) 10 mg PRN Q6HRS PRN 09/18/18 19:15 Miscellaneous (Lidoderm Patch Removal) 1 ea QHS 09/17/18 21:00 09/17/18 21:00 1 EA Morphine Sulfate (Morphine Sulfate) 4 mg PRN Q4HRS PRN 09/12/18 09:00 09/19/18 10:39 4 MG Ondansetron HCl (Zofran) 4 mg PRN Q6HRS PRN 09/17/18 09:30 09/18/18 19:39 4 MG Oxycodone HCl (Roxicodone) 5 mg PRN Q4HRS PRN 09/16/18 11:45 09/18/18 22:10 5 MG Pantoprazole Sodium (PROTONIX VIAL for IV PUSH) 40 mg DAILYAC 09/13/18 07:30 09/17/18 11:54 DC 09/17/18 10:04 40 MG Pantoprazole Sodium (Protonix) 40 mg DAILYAC 09/18/18 07:30 09/19/18 11:23 40 MG Polyethylene Glycol (miraLAX PACKET) 17 gm DAILY 09/12/18 13:30 09/18/18 08:44 17 GM Potassium Chloride 10 meq/ Bicarbonate Dialysis Soln w/ out KCl 5,005 ml @ 1,500 mls/hr Q3H21M 09/14/18 13:00 09/14/18 13:00 DC Potassium Chloride 10 meq/ Calcium Chloride 12.5 meq/ Bicarbonate Dialysis Soln w/ out KCl 5,013.9286 ml @ 1,000 mls/hr Q5H1M 09/14/18 13:00 09/14/18 13:00 DC Potassium Chloride 20 meq/ Bicarbonate Dialysis Soln w/ out KCl 5,010 ml @ 1,500 mls/hr Q3H21M 09/14/18 20:00 09/16/18 08:03 DC 09/16/18 00:18 1,500 MLS/HR Potassium Chloride 20 meq/ Calcium Chloride 12.5 meq/ Bicarbonate Dialysis Soln w/ out KCl 5,018.9286 ml @ 1,500 mls/hr Q3H21M 09/14/18 13:00 09/14/18 13:00 DC Potassium Chloride 30 meq/ Bicarbonate Dialysis Soln w/ out KCl 5,015 ml @ 1,500 mls/hr Q3H21M 09/14/18 18:00 09/14/18 19:10 DC Potassium Chloride 40 meq/ Bicarbonate Dialysis Soln w/ out KCl 5,020 ml @ 1,500 mls/hr Q3H21M 09/14/18 13:00 09/14/18 13:10 DC Potassium Chloride 60 meq/ Bicarbonate Dialysis Soln w/ out KCl 5,030 ml @ 1,500 mls/hr Q3H22M 09/14/18 13:00 09/14/18 13:07 DC Silver Sulfadiazine (Silvadene) 1 elinor BID 09/12/18 13:00 09/13/18 15:04 DC 09/13/18 10:06 1 ELINOR Sodium Bicarbonate (Sodium Bicarb Adult 8.4% Syr) 100 meq 1X ONCE 09/12/18 10:00 09/12/18 10:01 DC 09/12/18 10:02 100 MEQ Sodium Chloride 1,000 ml @ 400 mls/hr Q2H30M PRN 09/19/18 10:18 09/19/18 22:17 Sodium Chloride (Normal Saline Flush) 10 ml 1X PRN PRN 09/17/18 11:30 09/18/18 11:29 DC Lab Laboratory Tests Test 09/19/18 06:20 09/19/18 07:30 09/19/18 11:43 Sodium Level 132 mmol/L (136-145) Potassium Level 4.0 mmol/L (3.5-5.1) Chloride Level 96 mmol/L (98-107) Carbon Dioxide Level 28 mmol/L (21-32) Anion Gap 8 (6-14) Blood Urea Nitrogen 34 mg/dL (8-26) Creatinine 6.8 mg/dL (0.7-1.3) Estimated GFR (Cockcroft-Gault) 9.6 Glucose Level 95 mg/dL (70-99) Calcium Level 9.0 mg/dL (8.5-10.1) Phosphorus Level 5.3 mg/dL (2.6-4.7) Creatine Kinase 2551 U/L (39-308) Albumin 1.9 g/dL (3.4-5.0) Glucose (Fingerstick) 168 mg/dL (70-99) 87 mg/dL (70-99) Results All relevant outside records, renal labs, imaging studies, telemetry/EKG's were reviewed. LAVONNE RODAS MD Sep 19, 2018 13:03
--- NOTE | 2018-09-19 15:20 | PDOC ---
PROGRESS NOTES Assessment Assessment Generalized weakness. Rhabdomyolysis. Methamphetamine positive. Electrolytes imbalances. Hyponatremia. Hyperkalemia. Hypocalcemia. Hypoalbuminemia. AKD. Elevated hepatic enzymes. Other psychiatric problems. Abnormal T-spine MRI. LE edema. No evidence of MS this time. RECOMMENDATIONS/PLAN: Treat medical diseases. Repeat T-spine MRI ( no contrast due to renal failure). OT/PT. CSF OCB zero. Past Medical History GI: GERD Psych: Anxiety, Addictions, Depression Past Surgical History No pertinent history Family History No pertinent hx Social History Unemployed, uses methamphetamine, smokes occasionally, rare alcohol. Was said out of incarceration on 09/07/18. ALLERGY: NKDA MEDICATIONS: Refer to MAR REVIEW OF SYSTEMS: Refer to PMH and PSH. PHYSICAL EXAMINATION: General appearance in no acute distress. HEENT: Normocephalic and nontraumatic. Eyes, nose, ears, and throat are unremarkable. Neck is supple. No lymphadenopathy. No Crepitus. Cardiovascular: S1, S2, regular rate and rhythm. Pulmonary: Clear to auscultation bilaterally. Abdomen: Bowel sounds are positive. Extremities: No rash, lesions, or edema. No restriction of range of motion NEUROLOGICAL EXAMINATION: Awake. Oriented to time, place and person. PERRL. EOMI. CN: no focal findings. Muscle tone: within normal. Muscle strength: 4-5 DTR: 2 Plantar reflex: Flexor response bilaterally Gait: Able to walk with a walker. Sensory exam: no acute abnormal findings. No cerebellar signs elicited. F-T-N test fine. Edema in LE, right > Left. Objective Objective Vital Signs Date Time Temp Pulse Resp B/P (MAP) Pulse Ox O2 Delivery O2 Flow Rate FiO2 09/19/18 14:37 18 Room Air 09/19/18 11:00 98.2 91 143/91 (108) 94 98.2 09/18/18 19:40 98.0 Vitals Signs Vitals VS - Last 72 Hours, by Label Date Time Temp Pulse Resp B/P (MAP) Pulse Ox O2 Delivery O2 Flow Rate FiO2 09/19/18 14:37 18 Room Air 09/19/18 11:09 18 Room Air 09/19/18 11:00 98.2 91 16 143/91 (108) 94 Room Air 98.2 09/19/18 10:39 18 Room Air 09/19/18 07:00 97.7 91 18 150/91 (110) 93 Room Air 97.7 09/19/18 06:54 18 Room Air 09/19/18 03:00 98.0 100 18 156/103 (120) 95 Room Air 98.0 09/18/18 23:10 18 Room Air 09/18/18 22:10 97.8 90 18 141/97 (112) 93 Room Air 97.8 09/18/18 22:10 18 Room Air 09/18/18 22:00 Room Air 09/18/18 19:40 88 151/103 09/18/18 19:40 100 Room Air 98.0 09/18/18 19:20 98.2 93 20 153/101 (118) 96 Room Air 98.2 09/18/18 16:00 Room Air 98.0 09/18/18 15:15 97.9 88 18 142/83 (102) 100 Room Air 97.9 09/18/18 14:57 93 98.0 09/18/18 14:27 93 Room Air 98.0 09/18/18 11:10 97.8 101 18 136/88 (104) 93 Room Air 97.8 09/18/18 09:49 83 165/99 09/18/18 07:45 97.8 83 18 165/99 (121) 98 Room Air 97.8 Laboratory Laboratory Laboratory Tests Test 09/19/18 06:20 09/19/18 07:30 09/19/18 11:43 Sodium Level 132 mmol/L (136-145) Potassium Level 4.0 mmol/L (3.5-5.1) Chloride Level 96 mmol/L (98-107) Carbon Dioxide Level 28 mmol/L (21-32) Anion Gap 8 (6-14) Blood Urea Nitrogen 34 mg/dL (8-26) Creatinine 6.8 mg/dL (0.7-1.3) Estimated GFR (Cockcroft-Gault) 9.6 Glucose Level 95 mg/dL (70-99) Calcium Level 9.0 mg/dL (8.5-10.1) Phosphorus Level 5.3 mg/dL (2.6-4.7) Creatine Kinase 2551 U/L (39-308) Albumin 1.9 g/dL (3.4-5.0) Glucose (Fingerstick) 168 mg/dL (70-99) 87 mg/dL (70-99) Microbiology 09/12/18 Blood Culture - Final, Complete NO GROWTH AFTER 5 DAYS 09/12/18 CSF Gram Stain - Final, Complete 09/11/18 Urine Culture - Final, Complete 09/11/18 Urine Culture Result 1 ([place]) - Final, Complete Medication Medications Current Medications Diphenhydramine HCl (Benadryl) 25 mg 1X PRN PRN IV ITCHING; Start 09/19/18 at 10:30; Stop 09/20/18 at 10:29 Diphenhydramine HCl (Benadryl) 25 mg 1X PRN PRN IV ITCHING; Start 09/19/18 at 10:30; Stop 09/20/18 at 10:29 Info (PHARMACY MONITORING -- do not chart) 1 each PRN DAILY PRN MC SEE COMMENTS; Start 09/19/18 at 10:30; Status UNV Labetalol HCl (Trandate) 200 mg BID PO ; Start 09/19/18 at 10:00 Metoprolol Tartrate (Lopressor Vial) 10 mg PRN Q6HRS PRN IVP HYPERTENSION; Start 09/18/18 at 19:15 Sodium Chloride 1,000 ml @ 400 mls/hr Q2H30M PRN IV PATENCY; Start 09/19/18 at 10:18; Stop 09/19/18 at 22:17 Sodium Chloride 1,000 ml @ 1,000 mls/hr Q1H PRN IV hypotension; Start 09/19/18 at 10:18; Stop 09/19/18 at 16:17 Comment Review of Relevant I have reviewed the following items ashlie (where applicable) has been applied. KIM ELDER MD Sep 19, 2018 15:20
[2018-09-19] MEDS: oxyCODONE IR 5 MG TABLET PO PRN ×2 (15:41→20:56)
[2018-09-19 16:35] VITALS: BP 152/88
[2018-09-19] MEDS: LABETALOL HCL 100 MG TABLET. PO SCH ×2 (16:39→20:55)
--- NOTE | 2018-09-19 16:54 | RAD ---
THORACIC SPINE WO CONTRAST History: Abnormal finding on prior MRI. Technique: Multiplanar, multi sequential noncontrast MR imaging was performed of the thoracic spine. Comparison: September 12, 2018 Findings: Normal vertebral body height and alignment. No fracture. Normal signal abnormality throughout the thoracic spinal cord. Prominent posterior epidural lipomatosis throughout the thoracic spine. There is mild diffuse thoracic canal narrowing due to the epidural lipomatosis. Normal disc space height. Normal appearance of the thoracic discs. No neural foraminal narrowing. Right posterior paraspinal muscle edema, decreased compared to prior. Previously seen signal abnormality within the region of the mid thoracic spinous processes is no longer identified. Small right pleural effusion. Scattered left lung subsegmental atelectasis. Impression: 1. No pathologic signal abnormality within the thoracic spinal cord. 2. Diffuse dorsal epidural lipomatosis. 3. Decreased diffuse right posterior paraspinal muscle edema. 4. Small right pleural effusion. Electronically signed by: Nicola Ellison DO (09/19/2018 4:51 PM) [id number]
[2018-09-19 19:00] VITALS: BP 138/78
[2018-09-19] MEDS: GABAPENTIN 300 MG CAPSULE. PO SCH (20:55)
[2018-09-19] MEDS: PATCH REMOVAL. MC SCH (21:00)
[2018-09-19 23:00] VITALS: BP 132/77
[2018-09-20] VITALS (7 sets, daily range): BP systolic 124–164; BP diastolic 72–100
[2018-09-20] MEDS: oxyCODONE IR 5 MG TABLET PO PRN ×5 (01:44→21:13)
[2018-09-20] MEDS: MORPHINE SULFATE 4 MG/ML VIAL. IV PRN ×4 (03:47→19:23)
[2018-09-20 06:56] LABS: CALCIUM 8.7 mg/dL (8.5-10.1); CREATININE 5.8 mg/dL (0.7-1.3); GFR 11.5; PHOSPHORUS 4.6 mg/dL (2.6-4.7)
[2018-09-20] MEDS ORDERED: fentaNYL PF VIAL 100 MCG/2 ML VIAL ONE (08:12)
[2018-09-20] MEDS ORDERED: MIDAZOLAM HCL/PF 2 MG/2 ML VIAL. ONE ×2 (08:12→08:39)
[2018-09-20] MEDS ORDERED: LIDOCAINE 1%/EPI 1:100,000 20 ML VIAL. ONE (08:13)
[2018-09-20] MEDS ORDERED: MIDAZOLAM HCL/PF 2 MG/2 ML VIAL. IV ONE (08:45)
[2018-09-20] MEDS ORDERED: fentaNYL PF VIAL 100 MCG/2 ML VIAL IV ONE (08:45)
[2018-09-20] MEDS ORDERED: LIDOCAINE 1%/EPI 1:100,000 20 ML VIAL. IJ ONE (08:45)
[2018-09-20] MEDS: LIDOCAINE (700MG/PATCH) PATCH. TD SCH (09:00)
[2018-09-20] MEDS: PANTOPRAZOLE 40 MG TABLET.DR. PO SCH (09:29)
[2018-09-20] MEDS: POLYETHYLENE GLYCOL 3350 17 GM PACKET. PO SCH (09:29)
[2018-09-20] MEDS: LACTOBACILLUS RHAMNOSUS GG 1 CAPSULE. PO SCH ×2 (09:29→21:13)
[2018-09-20] MEDS: LABETALOL HCL 100 MG TABLET. PO SCH ×2 (09:29→21:14)
--- NOTE | 2018-09-20 11:48 | PDOC ---
SUBJECTIVE ROS No acute events overnight , minimum uop OBJECTIVE Vital Signs Vital Signs Date Time Temp Pulse Resp B/P (MAP) Pulse Ox O2 Delivery O2 Flow Rate FiO2 09/20/18 10:43 Room Air 09/20/18 09:29 89 141/92 09/20/18 08:53 12 96 3.0 09/20/18 07:00 98.3 98.3 I & 0 Intake and Output 09/20/18 07:00 Intake Total 120 ml Balance 120 ml Intake Oral 120 ml PHYSICAL EXAM Physical Exam GENERAL: NAD, EENT: OM moist NECK: Supple. LUNGS: Clear bilaterally. No wheezing. HEART: S1, S2, regular, ABDOMEN: Soft, nontender, BS present : Fernandez removed EXTREMITIES: Generalized trace edema, NEURO: Alert, answering appropriately RIJ/HDC DIAGNOSIS/ASSESSMENT Assessment & Plan CARO - ATN2/2 Rhabdo , Meth use Urinary retention at Presentation,Anuric Fernandez removed, Monitor for UOP with intermittent Bladder scan Requiring HD - 1 st Tx 09/12 ,CRRT x 1 Currently on MWF schedule, continue monitoring for renal recovery Tunnelled HDC placed this am , awaiting OP chair time Rhabdo- CPK>100,000 at presentation Hyperkalemia- Normal K Hyponatremia- stable, mildly low Severe Metabolic acidosis- 2/2 all above Resolved Transaminitis - Improving LFT's Hypocalcemia- severe 2/2 Rhabdo Normal Ca now Dw Pt and RN COMMENT/RELEVANT DATA Meds Current Medications Medications (Trade) Dose Ordered Sig/Mirela Start Time Stop Time Status Last Admin Dose Admin Acetaminophen (Tylenol) 500 mg PRN Q6HRS PRN 09/17/18 09:30 Albumin Human 200 ml @ 200 mls/hr 1X PRN PRN 09/17/18 11:30 09/17/18 17:29 DC Albuterol Sulfate (Ventolin Neb Soln) 10 mg 1X ONCE 09/11/18 23:00 09/11/18 23:01 DC 09/12/18 00:30 10 MG Atropine Sulfate (ATROPINE 0.5mg SYRINGE) 0.5 mg PRN Q5MIN PRN 09/12/18 14:15 Calcium Gluconate (Calcium Gluconate) 2,000 mg 1X ONCE 09/12/18 12:00 09/12/18 12:01 DC 09/12/18 13:38 2,000 MG Calcium Gluconate 2000 mg/Dextrose 120 ml @ 220 mls/hr 1X ONCE 09/13/18 10:00 09/13/18 10:32 DC 09/13/18 10:05 220 MLS/HR Cefazolin Sodium 50 ml @ 100 mls/hr 1X ONCE 09/20/18 08:45 09/20/18 09:14 DC 09/20/18 08:45 100 MLS/HR Ceftriaxone Sodium (Rocephin) 2 gm Q24H 09/13/18 13:00 09/17/18 10:06 DC 09/16/18 12:14 2 GM Dexmedetomidine HCl 200 mcg/ Sodium Chloride 50 ml @ 0 mls/hr CONT PRN 09/12/18 14:15 09/17/18 10:17 DC 09/15/18 10:28 12.6 MLS/HR Dextrose (Dextrose 50%-Water Syringe) 25 gm 1X ONCE 09/11/18 23:00 09/11/18 23:01 DC 09/11/18 22:42 25 GM Diphenhydramine HCl (Benadryl) 25 mg 1X PRN PRN 09/19/18 10:30 09/20/18 10:29 DC Fentanyl Citrate (Fentanyl 2ml Vial) 100 mcg 1X ONCE 09/20/18 08:45 09/20/18 08:52 DC 09/20/18 08:45 75 MCG Gabapentin (Neurontin) 300 mg QHS 09/16/18 21:00 09/19/18 20:55 300 MG Haloperidol (Haldol) 0.5 mg PRN QID PRN 09/18/18 09:00 09/18/18 09:03 DC Haloperidol Lactate (HALDOL 2mg ORAL CONC) 0.5 mg PRN QID PRN 09/18/18 09:03 Haloperidol Lactate (Haldol Inj) 1 mg PRN Q8HRS PRN 09/12/18 14:00 09/14/18 07:56 1 MG Heparin Sodium (Porcine) (Heparin Sodium) 2,500 unit PRN Q6HRS PRN 09/14/18 12:00 09/17/18 13:16 DC Heparin Sodium/ Dextrose 500 ml @ 0 mls/hr CONT PRN 09/14/18 12:00 09/16/18 08:03 DC 09/15/18 15:05 28.3 MLS/HR Info (PHARMACY MONITORING -- do not chart) 1 each PRN DAILY PRN 09/19/18 10:30 UNV Insulin Human Regular (HumuLIN R VIAL) 10 unit 1X ONCE 09/11/18 23:00 09/11/18 23:01 DC 09/11/18 23:51 10 UNIT Labetalol HCl (Normodyne Iv Push) 20 mg PRN Q4HRS PRN 09/17/18 09:30 09/18/18 19:10 DC Labetalol HCl (Trandate) 200 mg BID 09/19/18 10:00 09/20/18 09:29 200 MG Lactobacillus Rhamnosus (Culturelle) 1 cap BID 09/16/18 21:00 09/20/18 09:29 1 CAP Lidocaine (Lidoderm) 1 patch DAILY 09/17/18 10:00 09/18/18 08:44 1 PATCH Lidocaine/ Epinephrine (LIDOCAINE 1%-EPI 1:100,000 Multi-Dose) 20 ml 1X ONCE 09/20/18 08:45 09/20/18 08:52 DC 09/20/18 08:45 9 ML Lidocaine/Sodium Bicarbonate (Buffered Lidocaine 1%) 6 ml 1X ONCE 09/12/18 14:15 09/12/18 14:16 DC Linezolid (Zyvox) 600 mg BID 09/13/18 09:00 09/19/18 22:00 DC 09/19/18 20:55 600 MG Lorazepam (Ativan Inj) 1 mg PRN Q8HRS PRN 09/16/18 16:00 Lorazepam (Ativan) 0.5 mg PRN Q8HRS PRN 09/18/18 09:00 Metoprolol Tartrate (Lopressor Vial) 10 mg PRN Q6HRS PRN 09/18/18 19:15 Midazolam HCl (Versed) 2 mg 1X ONCE 09/20/18 08:45 09/20/18 08:52 DC 09/20/18 08:45 3 MG Miscellaneous (Lidoderm Patch Removal) 1 ea QHS 09/17/18 21:00 09/17/18 21:00 1 EA Morphine Sulfate (Morphine Sulfate) 4 mg PRN Q4HRS PRN 09/12/18 09:00 09/20/18 10:43 4 MG Ondansetron HCl (Zofran) 4 mg PRN Q6HRS PRN 09/17/18 09:30 09/18/18 19:39 4 MG Oxycodone HCl (Roxicodone) 5 mg PRN Q4HRS PRN 09/16/18 11:45 09/20/18 01:44 5 MG Pantoprazole Sodium (PROTONIX VIAL for IV PUSH) 40 mg DAILYAC 09/13/18 07:30 09/17/18 11:54 DC 09/17/18 10:04 40 MG Pantoprazole Sodium (Protonix) 40 mg DAILYAC 09/18/18 07:30 09/20/18 09:29 40 MG Polyethylene Glycol (miraLAX PACKET) 17 gm DAILY 09/12/18 13:30 09/20/18 09:29 17 GM Potassium Chloride 10 meq/ Bicarbonate Dialysis Soln w/ out KCl 5,005 ml @ 1,500 mls/hr Q3H21M 09/14/18 13:00 09/14/18 13:00 DC Potassium Chloride 10 meq/ Calcium Chloride 12.5 meq/ Bicarbonate Dialysis Soln w/ out KCl 5,013.9286 ml @ 1,000 mls/hr Q5H1M 09/14/18 13:00 09/14/18 13:00 DC Potassium Chloride 20 meq/ Bicarbonate Dialysis Soln w/ out KCl 5,010 ml @ 1,500 mls/hr Q3H21M 09/14/18 20:00 09/16/18 08:03 DC 09/16/18 00:18 1,500 MLS/HR Potassium Chloride 20 meq/ Calcium Chloride 12.5 meq/ Bicarbonate Dialysis Soln w/ out KCl 5,018.9286 ml @ 1,500 mls/hr Q3H21M 09/14/18 13:00 09/14/18 13:00 DC Potassium Chloride 30 meq/ Bicarbonate Dialysis Soln w/ out KCl 5,015 ml @ 1,500 mls/hr Q3H21M 09/14/18 18:00 09/14/18 19:10 DC Potassium Chloride 40 meq/ Bicarbonate Dialysis Soln w/ out KCl 5,020 ml @ 1,500 mls/hr Q3H21M 09/14/18 13:00 09/14/18 13:10 DC Potassium Chloride 60 meq/ Bicarbonate Dialysis Soln w/ out KCl 5,030 ml @ 1,500 mls/hr Q3H22M 09/14/18 13:00 09/14/18 13:07 DC Silver Sulfadiazine (Silvadene) 1 elinor BID 09/12/18 13:00 09/13/18 15:04 DC 09/13/18 10:06 1 ELINOR Sodium Bicarbonate (Sodium Bicarb Adult 8.4% Syr) 100 meq 1X ONCE 09/12/18 10:00 09/12/18 10:01 DC 09/12/18 10:02 100 MEQ Sodium Chloride 1,000 ml @ 400 mls/hr Q2H30M PRN 09/19/18 10:18 09/19/18 22:17 DC Sodium Chloride (Normal Saline Flush) 10 ml 1X PRN PRN 09/17/18 11:30 09/18/18 11:29 DC Lab Laboratory Tests Test 09/19/18 16:35 09/19/18 20:13 09/20/18 06:15 Glucose (Fingerstick) 121 mg/dL (70-99) 111 mg/dL (70-99) Sodium Level 133 mmol/L (136-145) Potassium Level 4.0 mmol/L (3.5-5.1) Chloride Level 97 mmol/L (98-107) Carbon Dioxide Level 29 mmol/L (21-32) Anion Gap 7 (6-14) Blood Urea Nitrogen 26 mg/dL (8-26) Creatinine 5.8 mg/dL (0.7-1.3) Estimated GFR (Cockcroft-Gault) 11.5 Glucose Level 101 mg/dL (70-99) Calcium Level 8.7 mg/dL (8.5-10.1) Phosphorus Level 4.6 mg/dL (2.6-4.7) Creatine Kinase 2272 U/L (39-308) Albumin 2.0 g/dL (3.4-5.0) Results All relevant outside records, renal labs, imaging studies, telemetry/EKG's were reviewed. LAVONNE RODAS MD Sep 20, 2018 11:48
--- NOTE | 2018-09-20 12:16 | PDOC ---
[employer] PROGRESS NOTE Chief Complaint Chief Complaint Status post tunneled catheter placement this morning New ESRD-initiation of HD/ ccrt at some point Hypotension, resolved Anasarca Hepatorenal syndrome Elevated troponin in the background of sepsis UTI Methamphetamine abuse Metabolic encephalopathy, improved etoh drinker Sepsis with hypotension, resolved MOD to sever PCM Oliguric renal failure Accelerated hypertension, better History of Present Illness History of Present Illness [id number] Patient seen and examined Discussed with RN and case management He just got his tunnel catheter this morning I believe the plan is to going to start dialysis tomorrow Complicating issues is the fact he does not have insurance and I think he might be homeless too? Vitals/I&O Vitals/I&O: Vital Signs Date Time Temp Pulse Resp B/P (MAP) Pulse Ox O2 Delivery O2 Flow Rate FiO2 09/20/18 10:43 Room Air 09/20/18 09:29 89 141/92 09/20/18 08:53 12 96 3.0 09/20/18 07:00 98.3 98.3 I & O 09/19/18 09/19/18 09/20/18 15:00 23:00 07:00 Intake Total 120 ml Balance 120 ml Physical Exam Physical Exam: GENERAL: Standing with PT then sat down, NAD, coop EENT: Pupils equal, oral cavity clear NECK: Supple. LUNGS: Clear bilaterally. No wheezing. HEART: S1, S2, regular, tachy 108s ABDOMEN: Soft, nontender, BS present : Fernandez EXTREMITIES: Generalized trace edema, no cyanosis. Right index with min swelling. Lesions are stable - mild maceration CENTRAL NERVOUS SYSTEM: Alert, answering appropriately RIJ/HDC without signs of complications PIV General: Oriented X3, Cooperative, mild distress Heart: Regular rate, Normal S1, No murmurs Lungs: Clear Abdomen: Normal bowel sounds, Soft, No hepatosplenomegaly, Other (obese, no fluid wave) Extremities: No clubbing, No cyanosis, No edema, Other (burn to right index finger APPEARS OLD associated cellulitis) Labs Labs: Laboratory Tests Test 09/19/18 16:35 09/19/18 20:13 09/20/18 06:15 Glucose (Fingerstick) 121 mg/dL (70-99) 111 mg/dL (70-99) Sodium Level 133 mmol/L (136-145) Potassium Level 4.0 mmol/L (3.5-5.1) Chloride Level 97 mmol/L (98-107) Carbon Dioxide Level 29 mmol/L (21-32) Anion Gap 7 (6-14) Blood Urea Nitrogen 26 mg/dL (8-26) Creatinine 5.8 mg/dL (0.7-1.3) Estimated GFR (Cockcroft-Gault) 11.5 Glucose Level 101 mg/dL (70-99) Calcium Level 8.7 mg/dL (8.5-10.1) Phosphorus Level 4.6 mg/dL (2.6-4.7) Creatine Kinase 2272 U/L (39-308) Albumin 2.0 g/dL (3.4-5.0) Assessment and Plan Assessmemt and Plan Problems Medical Problems: (1) Elevated troponin Status: Acute (2) Hepatorenal syndrome Status: Acute (3) Hyperkalemia Status: Acute (4) Hyponatremia Status: Acute (5) Methamphetamine abuse Status: Acute (6) Neurological complaint Status: Acute (7) Rhabdomyolysis Status: Acute (8) Urinary retention Status: Acute (9) Urinary tract infection Status: Acute Status post tunneled catheter placement this morning New ESRD-initiation of HD/ ccrt at some point Hypotension, resolved Anasarca Hepatorenal syndrome Elevated troponin in the background of sepsis UTI Methamphetamine abuse Metabolic encephalopathy, improved etoh drinker Sepsis with hypotension, resolved MOD to sever PCM Oliguric renal failure Accelerated hypertension, better Plan Starting dialysis probably tomorrow I talked to case management they are aware that he does not have insurance, and may be homeless. May take a couple days to get this all arranged, especially chair time? DVT prophylaxis Full code Home meds Long-term prognosis guarded Appreciate subspecialist input Comment Review of Relevant I have reviewed the following items ashlie (where applicable) has been applied. Medications: Current Medications Medications (Trade) Dose Ordered Sig/Mirela Route PRN Reason Start Time Stop Time Status Last Admin Dose Admin Midazolam HCl (Versed) 2 mg 1X ONCE IV 09/20/18 08:45 09/20/18 08:52 DC 09/20/18 08:45 Fentanyl Citrate (Fentanyl 2ml Vial) 100 mcg 1X ONCE IV 09/20/18 08:45 09/20/18 08:52 DC 09/20/18 08:45 Lidocaine/ Epinephrine (LIDOCAINE 1%-EPI 1:100,000 Multi-Dose) 20 ml 1X ONCE IJ 09/20/18 08:45 09/20/18 08:52 DC 09/20/18 08:45 Cefazolin Sodium 50 ml @ 100 mls/hr 1X ONCE IV 09/20/18 08:45 09/20/18 09:14 DC 09/20/18 08:45 Cefazolin Sodium 50 ml @ 100 mls/hr 1X ONCE IV 09/20/18 08:45 09/20/18 09:14 DC 09/20/18 08:45 AINSLEY BOWENS III DO Sep 20, 2018 12:16
--- NOTE | 2018-09-20 13:48 | NUR ---
Patient bladder scanned per request of Dr. Mcintosh/ has not urinated for me this shift/ patient retaining approximately 163mL of urine with no urge to urinate. Patient complaining of swollen legs and feet and now scrotal swelling. Dr. Mcintosh notified of bladder scan findings and the scrotal swelling and without the patient making much urine she stated other than dialysis that there is not much that can be done as of right now. However,Dr. Mcintosh did give a verbal order for a 1 x dose of 40 mg IVP Lasix. Will continue to monitor patient for any new changes.
--- NOTE | 2018-09-20 13:50 | RAD ---
Conversion of a right internal jugular temporary dialysis catheter to tunneled catheter 09/20/2018 7:00 AM Indication: Need for longer term dialysis access Discussion: The risks and benefits of the procedure were discussed the patient. Informed consent was obtained. Timeout procedure was performed. The right neck and chest prepped and draped using sterile barrier technique. All elements of maximal sterile barrier technique including the use of a cap, mask, sterile gown, sterile gloves, large sterile sheet, appropriate hand hygiene, and 2% chlorhexidine for cutaneous antisepsis (or acceptable alternative antiseptic per current guidelines) were followed for this procedure. Fluoroscopic evaluation demonstrates the pre-existing catheter to be in the appropriate position. A guidewire was advanced through the pre-existing catheter, into the IVC. A tunneled dialysis catheter was advanced from a small dermatotomy several inches inferior to the right clavicle to the access site. The pre-existing catheter was removed over a wire. A peel-away sheath was placed. The wire was removed and the new catheter was advanced through the peel-away sheath such that its catheter tip was at the mid right atrium with the patient supine. The new catheter was found to flush and aspirate normally. The catheter was secured in place. Sterile dressings were applied. Total fluoroscopy time: 1.3 MIN Dose area product: 5 Gycmn2 The procedure was performed under conscious sedation including continuous cardiopulmonary monitoring via a dedicated sedation nurse. [id number] sedation time: 30 minutes Impression: Conversion of a temporary dialysis catheter to a tunneled dialysis catheter as described
[2018-09-20] MEDS ORDERED: FUROSEMIDE 40 MG/4 ML VIAL. IVP ONE (14:30)
--- NOTE | 2018-09-20 15:22 | NUR ---
SS following up with discharge planning. HCFS continuing to follow for self pay status. Pt is homeless. Nephrology following. Pt may need OPHD at discharge. SS will continue to follow for discharge planning.
--- NOTE | 2018-09-20 17:55 | PDOC ---
PROGRESS NOTES Assessment Assessment Generalized weakness. Rhabdomyolysis. Methamphetamine positive. Electrolytes imbalances. AKD. Elevated hepatic enzymes. Other psychiatric problems. No evidence of MS this time. RECOMMENDATIONS/PLAN: Treat medical diseases. Repeat T-spine MRI showed no abnormal findings this time. OT/PT. CSF OCB zero. Repeat T-spine MRI on 09/19/18: No abnormal findings of T-cord. Past Medical History GI: GERD Psych: Anxiety, Addictions, Depression Past Surgical History No pertinent history Family History No pertinent hx Social History Unemployed, uses methamphetamine, smokes occasionally, rare alcohol. Was said out of incarceration on 09/07/18. ALLERGY: NKDA MEDICATIONS: Refer to MAR REVIEW OF SYSTEMS: Refer to PMH and PSH. PHYSICAL EXAMINATION: General appearance in no acute distress. HEENT: Normocephalic and nontraumatic. Eyes, nose, ears, and throat are unremarkable. Neck is supple. No lymphadenopathy. No Crepitus. Cardiovascular: S1, S2, regular rate and rhythm. Pulmonary: Clear to auscultation bilaterally. Abdomen: Bowel sounds are positive. Extremities: No rash, lesions, or edema. No restriction of range of motion NEUROLOGICAL EXAMINATION: Sleepiness but arousable. Oriented to time, place and person. PERRL. EOMI. CN: no focal findings. Muscle tone: within normal. Muscle strength: 5 DTR: 2 Plantar reflex: Flexor response bilaterally Gait: Able to walk. Sensory exam: no acute abnormal findings. No cerebellar signs elicited. F-T-N test fine. Objective Objective Vital Signs Date Time Temp Pulse Resp B/P (MAP) Pulse Ox O2 Delivery O2 Flow Rate FiO2 09/20/18 17:00 Room Air 09/20/18 15:00 97.8 108 19 164/91 (115) 92 97.8 09/20/18 08:53 3.0 Intake and Output 09/20/18 07:00 Intake Total 120 ml Balance 120 ml Intake Oral 120 ml Vitals Signs Vitals VS - Last 72 Hours, by Label Date Time Temp Pulse Resp B/P (MAP) Pulse Ox O2 Delivery O2 Flow Rate FiO2 09/20/18 17:00 Room Air 09/20/18 15:30 Room Air 09/20/18 15:00 97.8 108 19 164/91 (115) 92 Room Air 97.8 09/20/18 14:42 Room Air 09/20/18 14:00 Room Air 09/20/18 12:51 Room Air 09/20/18 11:00 98.2 72 19 124/77 (93) 97 Room Air 98.2 09/20/18 10:43 Room Air 09/20/18 10:02 Room Air 09/20/18 09:29 89 141/92 09/20/18 08:53 82 12 96 Nasal Cannula 3.0 09/20/18 08:45 12 09/20/18 08:30 Room Air 09/20/18 07:00 98.3 83 19 142/78 (99) 94 Room Air 98.3 09/20/18 03:00 98.0 83 18 133/72 (92) 91 Room Air 90.0 98.0 09/20/18 01:44 20 Room Air 09/19/18 23:13 18 Room Air 09/19/18 23:00 98.4 92 18 132/77 (95) 91 Room Air 98.0 98.4 09/19/18 20:56 20 Room Air 09/19/18 20:55 86 138/78 09/19/18 20:00 Room Air 09/19/18 19:22 18 09/19/18 19:00 98.1 86 18 138/78 (98) 98 Room Air 98.0 98.1 09/19/18 18:52 18 94 Room Air 98.0 09/19/18 16:41 18 09/19/18 16:39 102 152/88 09/19/18 16:35 98.1 102 20 152/88 (109) 94 Room Air 98.1 09/19/18 15:41 18 Room Air 09/19/18 15:07 94 09/19/18 14:37 18 Room Air 09/19/18 11:00 98.2 91 16 143/91 (108) 94 Room Air 98.2 09/19/18 10:39 18 Room Air 09/19/18 07:00 97.7 91 18 150/91 (110) 93 Room Air 97.7 Laboratory Laboratory Laboratory Tests Test 09/19/18 20:13 09/20/18 06:15 Glucose (Fingerstick) 111 mg/dL (70-99) Sodium Level 133 mmol/L (136-145) Potassium Level 4.0 mmol/L (3.5-5.1) Chloride Level 97 mmol/L (98-107) Carbon Dioxide Level 29 mmol/L (21-32) Anion Gap 7 (6-14) Blood Urea Nitrogen 26 mg/dL (8-26) Creatinine 5.8 mg/dL (0.7-1.3) Estimated GFR (Cockcroft-Gault) 11.5 Glucose Level 101 mg/dL (70-99) Calcium Level 8.7 mg/dL (8.5-10.1) Phosphorus Level 4.6 mg/dL (2.6-4.7) Creatine Kinase 2272 U/L (39-308) Albumin 2.0 g/dL (3.4-5.0) Microbiology 09/12/18 Blood Culture - Final, Complete NO GROWTH AFTER 5 DAYS 09/12/18 CSF Gram Stain - Final, Complete 09/11/18 Urine Culture - Final, Complete 09/11/18 Urine Culture Result 1 ([place]) - Final, Complete Medication Medications Current Medications Cefazolin Sodium 50 ml @ 100 mls/hr 1X ONCE IV Last administered on 09/20/18at 08:45; Start 09/20/18 at 08:45; Stop 09/20/18 at 09:14; Status DC Cefazolin Sodium 50 ml @ 100 mls/hr 1X ONCE IV Last administered on 09/20/18at 08:45; Start 09/20/18 at 08:45; Stop 09/20/18 at 09:14; Status DC Cefazolin Sodium 50 ml @ As Directed STK-MED ONCE IV ; Start 09/20/18 at 08:18; Stop 09/20/18 at 08:19; Status DC Cefazolin Sodium 50 ml @ As Directed STK-MED ONCE IV ; Start 09/20/18 at 08:18; Stop 09/20/18 at 08:19; Status DC Fentanyl Citrate (Fentanyl 2ml Vial) 100 mcg 1X ONCE IV Last administered on 09/20/18at 08:45; Start 09/20/18 at 08:45; Stop 09/20/18 at 08:52; Status DC Fentanyl Citrate (Fentanyl 2ml Vial) 100 mcg STK-MED ONCE .ROUTE ; Start 09/20/18 at 08:12; Stop 09/20/18 at 08:13; Status DC Furosemide (Lasix) 40 mg 1X ONCE IVP Last administered on 09/20/18at 14:44; Start 09/20/18 at 14:30; Stop 09/20/18 at 14:31; Status DC Lidocaine/ Epinephrine (LIDOCAINE 1%-EPI 1:100,000 Multi-Dose) 20 ml 1X ONCE IJ Last administered on 09/20/18at 08:45; Start 09/20/18 at 08:45; Stop 09/20/18 at 08:52; Status DC Lidocaine/ Epinephrine (LIDOCAINE 1%-EPI 1:100,000 Multi-Dose) 20 ml STK-MED ONCE .ROUTE ; Start 09/20/18 at 08:13; Stop 09/20/18 at 08:14; Status DC Midazolam HCl (Versed) 2 mg 1X ONCE IV Last administered on 09/20/18at 08:45; Start 09/20/18 at 08:45; Stop 09/20/18 at 08:52; Status DC Midazolam HCl (Versed) 2 mg STK-MED ONCE .ROUTE ; Start 09/20/18 at 08:12; Stop 09/20/18 at 08:13; Status DC Midazolam HCl (Versed) 2 mg STK-MED ONCE .ROUTE ; Start 09/20/18 at 08:39; Stop 09/20/18 at 08:40; Status DC Comment Review of Relevant I have reviewed the following items ashlie (where applicable) has been applied. KIM ELDER MD Sep 20, 2018 17:55
[2018-09-20] MEDS: PATCH REMOVAL. MC SCH (21:00)
[2018-09-20] MEDS: GABAPENTIN 300 MG CAPSULE. PO SCH (21:13)
[2018-09-21] VITALS (7 sets, daily range): BP systolic 128–161; BP diastolic 67–90
[2018-09-21] MEDS: MORPHINE SULFATE 4 MG/ML VIAL. IV PRN ×4 (00:16→20:31)
[2018-09-21] MEDS: oxyCODONE IR 5 MG TABLET PO PRN ×4 (01:24→22:15)
[2018-09-21 05:16] LABS: ALBUMIN 2.2 g/dL (3.4-5.0); CALCIUM 8.4 mg/dL (8.5-10.1); CREATININE 7.6 mg/dL (0.7-1.3); GFR 8.4; PHOSPHORUS 5.3 mg/dL (2.6-4.7); POTASSIUM 4.5 mmol/L (3.5-5.1)
[2018-09-21] MEDS: LIDOCAINE (700MG/PATCH) PATCH. TD SCH (09:00)
[2018-09-21] MEDS: POLYETHYLENE GLYCOL 3350 17 GM PACKET. PO SCH (09:25)
[2018-09-21] MEDS: LABETALOL HCL 100 MG TABLET. PO SCH ×2 (09:27→20:30)
[2018-09-21] MEDS: PANTOPRAZOLE 40 MG TABLET.DR. PO SCH (09:27)
[2018-09-21] MEDS: LACTOBACILLUS RHAMNOSUS GG 1 CAPSULE. PO SCH ×2 (09:28→20:30)
--- NOTE | 2018-09-21 10:28 | PDOC ---
SUBJECTIVE ROS No acute events overnight , Bladder scan yesterday with 160 ml of Urine , No urge to void OBJECTIVE Vital Signs Vital Signs Date Time Temp Pulse Resp B/P (MAP) Pulse Ox O2 Delivery O2 Flow Rate FiO2 09/21/18 09:27 88 147/77 09/21/18 07:11 18 100 Room Air 90.0 09/21/18 07:00 98.2 98.2 I & 0 Intake and Output 09/21/18 07:00 Intake Total 480 ml Balance 480 ml Intake Oral 480 ml # Voids 1 PHYSICAL EXAM Physical Exam GENERAL: NAD, EENT: OM moist NECK: Supple. LUNGS: Clear bilaterally. No wheezing. HEART: S1, S2, regular, ABDOMEN: Soft, nontender, BS present : Fernandez removed EXTREMITIES: Generalized trace edema, NEURO: Alert, answering appropriately Tunneled HDC 09/20 DIAGNOSIS/ASSESSMENT Assessment & Plan CARO - ATN2/2 Rhabdo , Meth use Urinary retention at Presentation,Anuric Fernandez removed, Monitor for UOP with intermittent Bladder scan Requiring HD - 1 st Tx 09/12 ,CRRT x 1 Currently on MWF schedule, continue monitoring for renal recovery HD today as ordered, Abhishek Silverman Tunnelled HDC placed this am , awaiting OP chair time Rhabdo- CPK>100,000 at presentation Hyperkalemia- Normal K Hyponatremia- stable, UF as tolerated Severe Metabolic acidosis- 2/2 all above Resolved Transaminitis - Improving LFT's Hypocalcemia- severe 2/2 Rhabdo Normal Ca now COMMENT/RELEVANT DATA Meds Current Medications Medications (Trade) Dose Ordered Sig/Mirela Start Time Stop Time Status Last Admin Dose Admin Acetaminophen (Tylenol) 500 mg PRN Q6HRS PRN 09/17/18 09:30 Albumin Human 200 ml @ 200 mls/hr 1X PRN PRN 09/17/18 11:30 09/17/18 17:29 DC Albuterol Sulfate (Ventolin Neb Soln) 10 mg 1X ONCE 09/11/18 23:00 09/11/18 23:01 DC 09/12/18 00:30 10 MG Atropine Sulfate (ATROPINE 0.5mg SYRINGE) 0.5 mg PRN Q5MIN PRN 09/12/18 14:15 Calcium Gluconate (Calcium Gluconate) 2,000 mg 1X ONCE 09/12/18 12:00 09/12/18 12:01 DC 09/12/18 13:38 2,000 MG Calcium Gluconate 2000 mg/Dextrose 120 ml @ 220 mls/hr 1X ONCE 09/13/18 10:00 09/13/18 10:32 DC 09/13/18 10:05 220 MLS/HR Cefazolin Sodium 50 ml @ 100 mls/hr 1X ONCE 09/20/18 08:45 09/20/18 09:14 DC 09/20/18 08:45 100 MLS/HR Ceftriaxone Sodium (Rocephin) 2 gm Q24H 09/13/18 13:00 09/17/18 10:06 DC 09/16/18 12:14 2 GM Dexmedetomidine HCl 200 mcg/ Sodium Chloride 50 ml @ 0 mls/hr CONT PRN 09/12/18 14:15 09/17/18 10:17 DC 09/15/18 10:28 12.6 MLS/HR Dextrose (Dextrose 50%-Water Syringe) 25 gm 1X ONCE 09/11/18 23:00 09/11/18 23:01 DC 09/11/18 22:42 25 GM Diphenhydramine HCl (Benadryl) 25 mg 1X PRN PRN 09/19/18 10:30 09/20/18 10:29 DC Fentanyl Citrate (Fentanyl 2ml Vial) 100 mcg 1X ONCE 09/20/18 08:45 09/20/18 08:52 DC 09/20/18 08:45 75 MCG Furosemide (Lasix) 40 mg 1X ONCE 09/20/18 14:30 09/20/18 14:31 DC 09/20/18 14:44 40 MG Gabapentin (Neurontin) 300 mg QHS 09/16/18 21:00 09/20/18 21:13 300 MG Haloperidol (Haldol) 0.5 mg PRN QID PRN 09/18/18 09:00 09/18/18 09:03 DC Haloperidol Lactate (HALDOL 2mg ORAL CONC) 0.5 mg PRN QID PRN 09/18/18 09:03 Haloperidol Lactate (Haldol Inj) 1 mg PRN Q8HRS PRN 09/12/18 14:00 09/14/18 07:56 1 MG Heparin Sodium (Porcine) (Heparin Sodium) 2,500 unit PRN Q6HRS PRN 09/14/18 12:00 09/17/18 13:16 DC Heparin Sodium/ Dextrose 500 ml @ 0 mls/hr CONT PRN 09/14/18 12:00 09/16/18 08:03 DC 09/15/18 15:05 28.3 MLS/HR Info (PHARMACY MONITORING -- do not chart) 1 each PRN DAILY PRN 09/19/18 10:30 UNV Insulin Human Regular (HumuLIN R VIAL) 10 unit 1X ONCE 09/11/18 23:00 09/11/18 23:01 DC 09/11/18 23:51 10 UNIT Labetalol HCl (Normodyne Iv Push) 20 mg PRN Q4HRS PRN 09/17/18 09:30 09/18/18 19:10 DC Labetalol HCl (Trandate) 200 mg BID 09/19/18 10:00 09/21/18 09:27 200 MG Lactobacillus Rhamnosus (Culturelle) 1 cap BID 09/16/18 21:00 09/21/18 09:28 1 CAP Lidocaine (Lidoderm) 1 patch DAILY 09/17/18 10:00 09/18/18 08:44 1 PATCH Lidocaine/ Epinephrine (LIDOCAINE 1%-EPI 1:100,000 Multi-Dose) 20 ml 1X ONCE 09/20/18 08:45 09/20/18 08:52 DC 09/20/18 08:45 9 ML Lidocaine/Sodium Bicarbonate (Buffered Lidocaine 1%) 6 ml 1X ONCE 09/12/18 14:15 09/12/18 14:16 DC Linezolid (Zyvox) 600 mg BID 09/13/18 09:00 09/19/18 22:00 DC 09/19/18 20:55 600 MG Lorazepam (Ativan Inj) 1 mg PRN Q8HRS PRN 09/16/18 16:00 Lorazepam (Ativan) 0.5 mg PRN Q8HRS PRN 09/18/18 09:00 Metoprolol Tartrate (Lopressor Vial) 10 mg PRN Q6HRS PRN 09/18/18 19:15 Midazolam HCl (Versed) 2 mg 1X ONCE 09/20/18 08:45 09/20/18 08:52 DC 09/20/18 08:45 3 MG Miscellaneous (Lidoderm Patch Removal) 1 ea QHS 09/17/18 21:00 09/20/18 21:00 1 EA Morphine Sulfate (Morphine Sulfate) 4 mg PRN Q4HRS PRN 09/12/18 09:00 09/21/18 04:19 4 MG Ondansetron HCl (Zofran) 4 mg PRN Q6HRS PRN 09/17/18 09:30 09/18/18 19:39 4 MG Oxycodone HCl (Roxicodone) 5 mg PRN Q4HRS PRN 09/16/18 11:45 09/21/18 06:11 5 MG Pantoprazole Sodium (PROTONIX VIAL for IV PUSH) 40 mg DAILYAC 09/13/18 07:30 09/17/18 11:54 DC 09/17/18 10:04 40 MG Pantoprazole Sodium (Protonix) 40 mg DAILYAC 09/18/18 07:30 09/21/18 09:27 40 MG Polyethylene Glycol (miraLAX PACKET) 17 gm DAILY 09/12/18 13:30 09/21/18 09:25 17 GM Potassium Chloride 10 meq/ Bicarbonate Dialysis Soln w/ out KCl 5,005 ml @ 1,500 mls/hr Q3H21M 09/14/18 13:00 09/14/18 13:00 DC Potassium Chloride 10 meq/ Calcium Chloride 12.5 meq/ Bicarbonate Dialysis Soln w/ out KCl 5,013.9286 ml @ 1,000 mls/hr Q5H1M 09/14/18 13:00 09/14/18 13:00 DC Potassium Chloride 20 meq/ Bicarbonate Dialysis Soln w/ out KCl 5,010 ml @ 1,500 mls/hr Q3H21M 09/14/18 20:00 09/16/18 08:03 DC 09/16/18 00:18 1,500 MLS/HR Potassium Chloride 20 meq/ Calcium Chloride 12.5 meq/ Bicarbonate Dialysis Soln w/ out KCl 5,018.9286 ml @ 1,500 mls/hr Q3H21M 09/14/18 13:00 09/14/18 13:00 DC Potassium Chloride 30 meq/ Bicarbonate Dialysis Soln w/ out KCl 5,015 ml @ 1,500 mls/hr Q3H21M 09/14/18 18:00 09/14/18 19:10 DC Potassium Chloride 40 meq/ Bicarbonate Dialysis Soln w/ out KCl 5,020 ml @ 1,500 mls/hr Q3H21M 09/14/18 13:00 09/14/18 13:10 DC Potassium Chloride 60 meq/ Bicarbonate Dialysis Soln w/ out KCl 5,030 ml @ 1,500 mls/hr Q3H22M 09/14/18 13:00 09/14/18 13:07 DC Silver Sulfadiazine (Silvadene) 1 elinor BID 09/12/18 13:00 09/13/18 15:04 DC 09/13/18 10:06 1 ELINOR Sodium Bicarbonate (Sodium Bicarb Adult 8.4% Syr) 100 meq 1X ONCE 09/12/18 10:00 09/12/18 10:01 DC 09/12/18 10:02 100 MEQ Sodium Chloride 1,000 ml @ 400 mls/hr Q2H30M PRN 09/19/18 10:18 09/19/18 22:17 DC Sodium Chloride (Normal Saline Flush) 10 ml 1X PRN PRN 09/17/18 11:30 09/18/18 11:29 DC Lab Laboratory Tests Test 09/21/18 04:04 Sodium Level 130 mmol/L (136-145) Potassium Level 4.5 mmol/L (3.5-5.1) Chloride Level 94 mmol/L (98-107) Carbon Dioxide Level 21 mmol/L (21-32) Anion Gap 15 (6-14) Blood Urea Nitrogen 38 mg/dL (8-26) Creatinine 7.6 mg/dL (0.7-1.3) Estimated GFR (Cockcroft-Gault) 8.4 Glucose Level 104 mg/dL (70-99) Calcium Level 8.4 mg/dL (8.5-10.1) Phosphorus Level 5.3 mg/dL (2.6-4.7) Creatine Kinase 1778 U/L (39-308) Albumin 2.2 g/dL (3.4-5.0) Results All relevant outside records, renal labs, imaging studies, telemetry/EKG's were reviewed. LAVONNE RODAS MD Sep 21, 2018 10:28
--- NOTE | 2018-09-21 11:35 | NUR ---
Pt scrotum is enlarged like size of grapefruit. Have it elevated with a towel. Lower extremities +3. Going to dialysis this afternoon. Cont. monitor.
[2018-09-21] MEDS ORDERED: FUROSEMIDE 40 MG/4 ML VIAL. IVP ONE (12:30)
--- NOTE | 2018-09-21 12:33 | PDOC ---
PROGRESS NOTES Chief Complaint Chief Complaint Status post tunneled catheter placement this morning New ESRD-initiation of HD/ ccrt at some point Hypotension, resolved Anasarca Hepatorenal syndrome Elevated troponin in the background of sepsis UTI Methamphetamine abuse Metabolic encephalopathy, improved etoh drinker Sepsis with hypotension, resolved MOD to sever PCM Oliguric renal failure Accelerated hypertension, better History of Present Illness History of Present Illness Complains scrotum is swollen and it is Creatinine 7.6 from 5 Minimal urine output Did get Lasix yesterday by renal 09/20/18 Anasarca Minimal urine output-Fernandez catheter out Plan: Lasix 40 IV push now Check scrotal ultrasound just to make sure still good blood flow-likely just bilateral hydrocele Need to gets fluid off during dialysis Elevate scrotum with chucks or towels please BMP again tomorrow Social work working on outpatient HD set up-some reports there is medicaid other reports he is self-pay discussed with renal Vitals Vitals Vital Signs Date Time Temp Pulse Resp B/P (MAP) Pulse Ox O2 Delivery O2 Flow Rate FiO2 09/21/18 11:04 18 Room Air 09/21/18 11:00 98.2 86 140/67 (91) 95 98.2 09/21/18 07:11 90.0 Physical Exam Physical Exam GENERAL: Standing with PT then sat down, NAD, coop EENT: Pupils equal, oral cavity clear NECK: Supple. LUNGS: Clear bilaterally. No wheezing. HEART: S1, S2, regular, tachy 108s ABDOMEN: Soft, nontender, BS present : Fernandez EXTREMITIES: Generalized trace edema, no cyanosis. Right index with min swelling. Lesions are stable - mild maceration CENTRAL NERVOUS SYSTEM: Alert, answering appropriately RIJ/HDC without signs of complications PIV General: Oriented X3, Cooperative, mild distress Heart: Regular rate, Normal S1, No murmurs Lungs: Clear Abdomen: Normal bowel sounds, Soft, No hepatosplenomegaly, Other (obese, no fluid wave) Extremities: No clubbing, No cyanosis, No edema, Other (burn to right index finger APPEARS OLD associated cellulitis) Labs LABS Laboratory Tests Test 09/21/18 04:04 Sodium Level 130 mmol/L (136-145) Potassium Level 4.5 mmol/L (3.5-5.1) Chloride Level 94 mmol/L (98-107) Carbon Dioxide Level 21 mmol/L (21-32) Anion Gap 15 (6-14) Blood Urea Nitrogen 38 mg/dL (8-26) Creatinine 7.6 mg/dL (0.7-1.3) Estimated GFR (Cockcroft-Gault) 8.4 Glucose Level 104 mg/dL (70-99) Calcium Level 8.4 mg/dL (8.5-10.1) Phosphorus Level 5.3 mg/dL (2.6-4.7) Creatine Kinase 1778 U/L (39-308) Albumin 2.2 g/dL (3.4-5.0) Review of Systems Review of Systems swollen scrotum, weak, but claims ambulatory Anasarca Assessment and Plan Assessmemt and Plan Problems Medical Problems: (1) Elevated troponin Status: Acute (2) Hepatorenal syndrome Status: Acute (3) Hyperkalemia Status: Acute (4) Hyponatremia Status: Acute (5) Methamphetamine abuse Status: Acute (6) Neurological complaint Status: Acute (7) Rhabdomyolysis Status: Acute (8) Urinary retention Status: Acute (9) Urinary tract infection Status: Acute Comment Review of Relevant I have reviewed the following items ashlie (where applicable) has been applied. Labs Laboratory Tests Test 09/19/18 16:35 09/19/18 20:13 09/20/18 06:15 09/21/18 04:04 Glucose (Fingerstick) 121 mg/dL (70-99) 111 mg/dL (70-99) Sodium Level 133 mmol/L (136-145) 130 mmol/L (136-145) Potassium Level 4.0 mmol/L (3.5-5.1) 4.5 mmol/L (3.5-5.1) Chloride Level 97 mmol/L (98-107) 94 mmol/L (98-107) Carbon Dioxide Level 29 mmol/L (21-32) 21 mmol/L (21-32) Anion Gap 7 (6-14) 15 (6-14) Blood Urea Nitrogen 26 mg/dL (8-26) 38 mg/dL (8-26) Creatinine 5.8 mg/dL (0.7-1.3) 7.6 mg/dL (0.7-1.3) Estimated GFR (Cockcroft-Gault) 11.5 8.4 Glucose Level 101 mg/dL (70-99) 104 mg/dL (70-99) Calcium Level 8.7 mg/dL (8.5-10.1) 8.4 mg/dL (8.5-10.1) Phosphorus Level 4.6 mg/dL (2.6-4.7) 5.3 mg/dL (2.6-4.7) Creatine Kinase 2272 U/L (39-308) 1778 U/L (39-308) Albumin 2.0 g/dL (3.4-5.0) 2.2 g/dL (3.4-5.0) Laboratory Tests Test 09/21/18 04:04 Sodium Level 130 mmol/L (136-145) Potassium Level 4.5 mmol/L (3.5-5.1) Chloride Level 94 mmol/L (98-107) Carbon Dioxide Level 21 mmol/L (21-32) Anion Gap 15 (6-14) Blood Urea Nitrogen 38 mg/dL (8-26) Creatinine 7.6 mg/dL (0.7-1.3) Estimated GFR (Cockcroft-Gault) 8.4 Glucose Level 104 mg/dL (70-99) Calcium Level 8.4 mg/dL (8.5-10.1) Phosphorus Level 5.3 mg/dL (2.6-4.7) Creatine Kinase 1778 U/L (39-308) Albumin 2.2 g/dL (3.4-5.0) Microbiology 09/12/18 Blood Culture - Final, Complete NO GROWTH AFTER 5 DAYS 09/12/18 CSF Gram Stain - Final, Complete 09/11/18 Urine Culture - Final, Complete 09/11/18 Urine Culture Result 1 ([place]) - Final, Complete Medications Current Medications Morphine Sulfate (Morphine Sulfate) 4 mg 1X ONCE IV Last administered on 09/11/18at 21:20; Start 09/11/18 at 21:30; Stop 09/11/18 at 21:31; Status DC Sodium Chloride 1,000 ml @ 1,000 mls/hr 1X ONCE IV Last administered on 09/11/18at 22:30; Start 09/11/18 at 22:30; Stop 09/11/18 at 23:29; Status DC Calcium Gluconate (Calcium Gluconate) 1,000 mg 1X ONCE IVP Last administered on 09/11/18at 22:43; Start 09/11/18 at 23:00; Stop 09/11/18 at 23:01; Status DC Insulin Human Regular (HumuLIN R VIAL) 10 unit 1X ONCE IV Last administered on 09/11/18 23:51; Start 09/11/18 at 23:00; Stop 09/11/18 at 23:01; Status DC Dextrose (Dextrose 50%-Water Syringe) 25 gm 1X ONCE IV Last administered on 22:42; Start 09/11/18 at 23:00; Stop 09/11/18 at 23:01; Status DC Sodium Bicarbonate (Sodium Bicarb Adult 8.4% Syr) 50 meq 1X ONCE IV Last administered on 09/11/18 23:49; Start 09/11/18 at 23:00; Stop 09/11/18 at 23:01; Status DC Sodium Chloride 1,000 ml @ 1,000 mls/hr 1X ONCE IV Last administered on 09/11/18at 23:50; Start 09/11/18 at 23:00; Stop 09/11/18 at 23:59; Status DC Albuterol Sulfate (Ventolin Neb Soln) 10 mg 1X ONCE CONT NEB Last administered on 09/12/18at 00:30; Start 09/11/18 at 23:00; Stop 09/11/18 at 23:01; Status DC Ceftriaxone Sodium (Rocephin) 1 gm 1X ONCE IVP Last administered on 09/11/18 22:43; Start 09/11/18 at 23:00; Stop 09/11/18 at 23:01; Status DC Sodium Chloride 1,000 ml @ 1,000 mls/hr 1X ONCE IV Last administered on 09/03 at 01:00; Start 09/12/18 at 01:00; Stop 09/12/18 at 01:59; Status DC Lorazepam (Ativan Inj) 0.5 mg PRN Q6HRS PRN IV ANXIETY / AGITATION Last administered on 09/12/18 11:00; Start 09/12/18 at 01:15; Stop 09/13/18 at 08:48; Status DC Ondansetron HCl (Zofran) 4 mg PRN Q6HRS PRN IV NAUSEA/VOMITING 1ST CHOICE; Start 09/12/18 at 01:15; Stop 09/12/18 at 01:22; Status DC Sodium Chloride (Normal Saline Flush) 3 ml QSHIFT PRN IV AFTER MEDS AND BLOOD DRAWS; Start 09/12/18 at 01:15 Sodium Chloride 1,000 ml @ 175 mls/hr Q5H43M IV ; Start 09/12/18 at 01:08; Stop 09/12/18 at 01:23; Status DC Ondansetron HCl (Zofran) 4 mg PRN Q8HRS PRN IV NAUSEA/VOMITING 1ST CHOICE; Start 09/12/18 at 01:15; Stop 09/13/18 at 01:14; Status DC Sodium Chloride 1,000 ml @ 150 mls/hr Q6H40M IV ; Start 09/12/18 at 01:30; Stop 09/12/18 at 18:49; Status DC Morphine Sulfate (Morphine Sulfate) 4 mg PRN Q4HRS PRN IV SEVERE PAIN Last administered on 09/21/18at 04:19; Start 09/12/18 at 09:00 Sodium Bicarbonate (Sodium Bicarb Adult 8.4% Syr) 100 meq 1X ONCE IV Last administered on 09/12/18at 10:02; Start 09/12/18 at 10:00; Stop 09/12/18 at 10:01; Status DC Sodium Chloride 1,000 ml @ 1,000 mls/hr 1X ONCE IV Last administered on 09/12/18at 09:56; Start 09/12/18 at 10:00; Stop 09/12/18 at 10:59; Status DC Lidocaine/Sodium Bicarbonate (Buffered Lidocaine 1%) 3 ml STK-MED ONCE .ROUTE ; Start 09/12/18 at 11:07; Stop 09/12/18 at 11:08; Status DC Calcium Gluconate (Calcium Gluconate) 2,000 mg 1X ONCE IVP Last administered on 09/12/18at 13:38; Start 09/12/18 at 12:00; Stop 09/12/18 at 12:01; Status DC Ceftriaxone Sodium (Rocephin) 1 gm Q24H IVP Last administered on 09/12/18at 12:49; Start 09/12/18 at 13:00; Stop 09/13/18 at 07:45; Status DC Silver Sulfadiazine (Silvadene) 1 elinor BID TP Last administered on 09/13/18at 10:06; Start 09/12/18 at 13:00; Stop 09/13/18 at 15:04; Status DC Sodium Chloride 1,000 ml @ 1,000 mls/hr 1X ONCE IV Last administered on 09/12/18at 12:47; Start 09/12/18 at 12:45; Stop 09/12/18 at 13:44; Status DC Pantoprazole Sodium (Protonix) 40 mg DAILYAC PO ; Start 09/12/18 at 13:30; Stop 09/12/18 at 19:22; Status DC Polyethylene Glycol (miraLAX PACKET) 17 gm DAILY PO Last administered on 09/21/18at 09:25; Start 09/12/18 at 13:30 Lidocaine/Sodium Bicarbonate (Buffered Lidocaine 1%) 3 ml STK-MED ONCE .ROUTE ; Start 09/12/18 at 13:48; Stop 09/12/18 at 13:49; Status DC Haloperidol Lactate (Haldol Inj) 1 mg PRN Q8HRS PRN IVP AGITATION Last administered on 09/14/18at 07:56; Start 09/12/18 at 14:00 Lorazepam (Ativan Inj) 2 mg PRN Q2HRS PRN IV ANXIETY. Last administered on 09/16/18at 21:22; Start 09/12/18 at 14:00; Stop 09/17/18 at 10:17; Status DC Lidocaine/Sodium Bicarbonate (Buffered Lidocaine 1%) 6 ml 1X ONCE INJ ; Start 09/12/18 at 14:15; Stop 09/12/18 at 14:16; Status DC Dexmedetomidine HCl 200 mcg/ Sodium Chloride 50 ml @ 0 mls/hr CONT PRN IV PER PROTOCOL Last administered on 09/15/18at 10:28; Start 09/12/18 at 14:15; Stop 09/17/18 at 10:17; Status DC Sodium Chloride 500 ml @ 500 mls/hr 1X PRN PRN IV SEE COMMENTS; Start 09/12/18 at 14:15; Stop 09/20/18 at 14:54; Status DC Atropine Sulfate (ATROPINE 0.5mg SYRINGE) 0.5 mg PRN Q5MIN PRN IV SEE COMMENTS; Start 09/12/18 at 14:15 Sodium Chloride 1,000 ml @ 1,000 mls/hr Q1H PRN IV hypotension; Start 09/12/18 at 15:08; Stop 09/12/18 at 21:07; Status DC Diphenhydramine HCl (Benadryl) 25 mg 1X PRN PRN IV ITCHING; Start 09/12/18 at 15:15; Stop 09/13/18 at 11:19; Status DC Diphenhydramine HCl (Benadryl) 25 mg 1X PRN PRN IV ITCHING; Start 09/12/18 at 15:15; Stop 09/13/18 at 11:19; Status DC Sodium Chloride 1,000 ml @ 400 mls/hr Q2H30M PRN IV PATENCY; Start 09/12/18 at 15:08; Stop 09/13/18 at 03:07; Status DC Info (PHARMACY MONITORING -- do not chart) 1 each PRN DAILY PRN MC SEE COMMENTS; Start 09/12/18 at 15:15; Stop 09/13/18 at 11:18; Status DC Pantoprazole Sodium (PROTONIX VIAL for IV PUSH) 40 mg DAILYAC IVP Last administered on 09/17/18at 10:04; Start 09/13/18 at 07:30; Stop 09/17/18 at 11:54; Status DC Linezolid (Zyvox) 600 mg BID PO Last administered on 09/19/18at 20:55; Start 09/13/18 at 09:00; Stop 09/19/18 at 22:00; Status DC Ceftriaxone Sodium (Rocephin) 2 gm Q24H IVP Last administered on 09/16/18at 12:14; Start 09/13/18 at 13:00; Stop 09/17/18 at 10:06; Status DC Calcium Gluconate 2000 mg/Dextrose 120 ml @ 220 mls/hr 1X ONCE IV Last administered on 09/13/18at 10:05; Start 09/13/18 at 10:00; Stop 09/13/18 at 10:32; Status DC Sodium Chloride 1,000 ml @ 1,000 mls/hr Q1H PRN IV hypotension; Start 09/13/18 at 11:06; Stop 09/13/18 at 17:05; Status DC Diphenhydramine HCl (Benadryl) 25 mg 1X PRN PRN IV ITCHING; Start 09/13/18 at 11:15; Stop 09/14/18 at 11:14; Status DC Diphenhydramine HCl (Benadryl) 25 mg 1X PRN PRN IV ITCHING; Start 09/13/18 at 11:15; Stop 09/14/18 at 11:14; Status DC Sodium Chloride 1,000 ml @ 400 mls/hr Q2H30M PRN IV PATENCY; Start 09/13/18 at 11:06; Stop 09/13/18 at 23:05; Status DC Info (PHARMACY MONITORING -- do not chart) 1 each PRN DAILY PRN MC SEE COMMENTS; Start 09/13/18 at 11:15; Status Cancel Potassium Chloride 10 meq/ Calcium Chloride 12.5 meq/ Bicarbonate Dialysis Soln w/ out KCl 5,013.9286 ml @ 1,000 mls/hr Q5H1M IV ; Start 09/14/18 at 13:00; Status Cancel Potassium Chloride 20 meq/ Calcium Chloride 12.5 meq/ Bicarbonate Dialysis Soln w/ out KCl 5,018.9286 ml @ 1,500 mls/hr Q3H21M IV ; Start 09/14/18 at 13:00; Stop 09/14/18 at 13:00; Status DC Heparin Sodium (Porcine) (Heparin Sodium) 4,000 unit 1X ONCE IV Last administered on 09/14/18at 19:54; Start 09/14/18 at 12:00; Stop 09/14/18 at 12:11; Status DC Heparin Sodium/ Dextrose 500 ml @ 0 mls/hr CONT PRN IV SEE I/O RECORD Last administered on 09/15/18at 15:05; Start 09/14/18 at 12:00; Stop 09/16/18 at 08:03; Status DC Heparin Sodium (Porcine) (Heparin Sodium) 2,500 unit PRN Q6HRS PRN IV FOR UFH LEVEL LESS THAN 0.2; Start 09/14/18 at 12:00; Stop 09/17/18 at 13:16; Status DC Potassium Chloride 10 meq/ Calcium Chloride 12.5 meq/ Bicarbonate Dialysis Soln w/ out KCl 5,013.9286 ml @ 1,000 mls/hr Q5H1M IV ; Start 09/14/18 at 13:00; Stop 09/14/18 at 13:00; Status DC Potassium Chloride 10 meq/ Bicarbonate Dialysis Soln w/ out KCl 5,005 ml @ 1,000 mls/hr Q5H1M IV ; Start 09/14/18 at 13:00; Stop 09/14/18 at 13:00; Status DC Potassium Chloride 20 meq/ Bicarbonate Dialysis Soln w/ out KCl 5,010 ml @ 1,500 mls/hr Q3H21M IV ; Start 09/14/18 at 13:00; Stop 09/14/18 at 13:00; Status DC Potassium Chloride 10 meq/ Bicarbonate Dialysis Soln w/ out KCl 5,005 ml @ 1, 500 mls/hr Q3H21M IV ; Start 09/14/18 at 13:00; Stop 09/14/18 at 13:00; Status DC Potassium Chloride 20 meq/ Bicarbonate Dialysis Soln w/ out KCl 5,010 ml @ 1,000 mls/hr Q5H1M IV Last administered on 09/15/18at 20:43; Start 09/14/18 at 13:00; Stop 09/16/18 at 08:03; Status DC Potassium Chloride 20 meq/ Bicarbonate Dialysis Soln w/ out KCl 5,010 ml @ 1,500 mls/hr Q3H21M IV ; Start 09/14/18 at 12:45; Stop 09/14/18 at 12:45; Status DC Potassium Chloride 40 meq/ Bicarbonate Dialysis Soln w/ out KCl 5,020 ml @ 1,500 mls/hr Q3H21M IV ; Start 09/14/18 at 13:00; Stop 09/14/18 at 13:10; Status DC Potassium Chloride 60 meq/ Bicarbonate Dialysis Soln w/ out KCl 5,030 ml @ 1,500 mls/hr Q3H22M IV ; Start 09/14/18 at 13:00; Stop 09/14/18 at 13:07; Status DC Potassium Chloride 30 meq/ Bicarbonate Dialysis Soln w/ out KCl 5,015 ml @ 1,500 mls/hr Q3H21M IV ; Start 09/14/18 at 13:15; Stop 09/14/18 at 18:00; Status DC Potassium Chloride 20 meq/ Bicarbonate Dialysis Soln w/ out KCl 5,010 ml @ 1,500 mls/hr Q3H21M IV Last administered on 09/14/18at 21:06; Start 09/14/18 at 13:10; Stop 09/14/18 at 18:00; Status DC Potassium Chloride 30 meq/ Bicarbonate Dialysis Soln w/ out KCl 5,015 ml @ 1,500 mls/hr Q3H21M IV ; Start 09/14/18 at 18:00; Stop 09/14/18 at 19:10; Status DC Potassium Chloride 20 meq/ Bicarbonate Dialysis Soln w/ out KCl 5,010 ml @ 1,500 mls/hr Q3H21M IV Last administered on 09/16/18at 00:15; Start 09/14/18 at 18:01; Stop 09/16/18 at 08:03; Status DC Potassium Chloride 20 meq/ Bicarbonate Dialysis Soln w/ out KCl 5,010 ml @ 1,500 mls/hr Q3H21M IV Last administered on 09/16/18at 00:18; Start 09/14/18 at 20:00; Stop 09/16/18 at 08:03; Status DC Lactobacillus Rhamnosus (Culturelle) 1 cap BID PO Last administered on 09/21/18at 09:28; Start 09/16/18 at 21:00 Oxycodone HCl (Roxicodone) 5 mg PRN Q4HRS PRN PO MODERATE TO SEVERE PAIN Last administered on 09/21/18at 11:04; Start 09/16/18 at 11:45 Lorazepam (Ativan Inj) 1 mg PRN Q8HRS PRN IV ANXIETY.; Start 09/16/18 at 16:00 Gabapentin (Neurontin) 300 mg QHS PO Last administered on 09/20/18at 21:13; Start 09/16/18 at 21:00 Labetalol HCl (Normodyne Iv Push) 10 mg PRN Q4HRS PRN IVP HYPERTENSION Last administered on 09/17/18at 03:33; Start 09/16/18 at 23:30; Stop 09/17/18 at 09:26; Status DC Labetalol HCl (Normodyne Iv Push) 20 mg PRN Q4HRS PRN IVP HYPERTENSION; Start 09/17/18 at 09:30; Stop 09/18/18 at 19:10; Status DC Ondansetron HCl (Zofran) 4 mg PRN Q6HRS PRN IV NAUSEA/VOMITING Last administered on 09/18/18at 19:39; Start 09/17/18 at 09:30 Acetaminophen (Tylenol) 500 mg PRN Q6HRS PRN PO MILD PAIN / TEMP; Start 09/17/18 at 09:30 Lidocaine (Lidoderm) 1 patch DAILY TD Last administered on 09/18/18at 08:44; Start 09/17/18 at 10:00 Miscellaneous (Lidoderm Patch Removal) 1 ea QHS MC Last administered on 09/20/18at 21:00; Start 09/17/18 at 21:00 Sodium Chloride 1,000 ml @ 1,000 mls/hr Q1H PRN IV hypotension; Start 09/17/18 at 11:26; Stop 09/17/18 at 17:25; Status DC Albumin Human 200 ml @ 200 mls/hr 1X PRN PRN IV Hypotension; Start 09/17/18 at 11:30; Stop 09/17/18 at 17:29; Status DC Sodium Chloride (Normal Saline Flush) 10 ml 1X PRN PRN IV AP catheter pack; Start 09/17/18 at 11:30; Stop 09/18/18 at 11:29; Status DC Sodium Chloride (Normal Saline Flush) 10 ml 1X PRN PRN IV TRAINING ENGINEER catheter pack; Start 09/17/18 at 11:30; Stop 09/18/18 at 11:29; Status DC Sodium Chloride 1,000 ml @ 400 mls/hr Q2H30M PRN IV PATENCY; Start 09/17/18 at 11:26; Stop 09/17/18 at 23:25; Status DC Info (PHARMACY MONITORING -- do not chart) 1 each PRN DAILY PRN MC SEE COMMENTS; Start 09/17/18 at 11:30; Status UNV Info (PHARMACY MONITORING -- do not chart) 1 each PRN DAILY PRN MC SEE COMMENTS; Start 09/17/18 at 11:30 Pantoprazole Sodium (Protonix) 40 mg DAILYAC PO Last administered on 09/21/18at 09:27; Start 09/18/18 at 07:30 Labetalol HCl (Trandate) 100 mg BID PO Last administered on 09/18/18at 19:40; Start 09/18/18 at 09:00; Stop 09/19/18 at 09:13; Status DC Lorazepam (Ativan) 0.5 mg PRN Q8HRS PRN PO ANXIETY / AGITATION; Start 09/18/18 at 09:00 Haloperidol (Haldol) 0.5 mg PRN QID PRN PO AGITATION, 2ND CHOICE; Start 09/18/18 at 09:00; Stop 09/18/18 at 09:03; Status DC Haloperidol Lactate (HALDOL 2mg ORAL CONC) 0.5 mg PRN QID PRN PO AGITATION, 2ND CHOICE; Start 09/18/18 at 09:03 Metoprolol Tartrate (Lopressor Vial) 10 mg PRN Q6HRS PRN IVP HYPERTENSION; Start 09/18/18 at 19:15 Labetalol HCl (Trandate) 200 mg BID PO Last administered on 09/21/18at 09:27; Start 09/19/18 at 10:00 Sodium Chloride 1,000 ml @ 1,000 mls/hr Q1H PRN IV hypotension; Start 09/19/18 at 10:18; Stop 09/19/18 at 16:17; Status DC Diphenhydramine HCl (Benadryl) 25 mg 1X PRN PRN IV ITCHING; Start 09/19/18 at 10:30; Stop 09/20/18 at 10:29; Status DC Diphenhydramine HCl (Benadryl) 25 mg 1X PRN PRN IV ITCHING; Start 09/19/18 at 10:30; Stop 09/20/18 at 10:29; Status DC Sodium Chloride 1,000 ml @ 400 mls/hr Q2H30M PRN IV PATENCY; Start 09/19/18 at 10:18; Stop 09/19/18 at 22:17; Status DC Info (PHARMACY MONITORING -- do not chart) 1 each PRN DAILY PRN MC SEE COMMENTS; Start 09/19/18 at 10:30; Status UNV Midazolam HCl (Versed) 2 mg STK-MED ONCE .ROUTE ; Start 09/20/18 at 08:12; Stop 09/20/18 at 08:13; Status DC Fentanyl Citrate (Fentanyl 2ml Vial) 100 mcg STK-MED ONCE .ROUTE ; Start 09/20/18 at 08:12; Stop 09/20/18 at 08:13; Status DC Lidocaine/ Epinephrine (LIDOCAINE 1%-EPI 1:100,000 Multi-Dose) 20 ml STK-MED ONCE .ROUTE ; Start 09/20/18 at 08:13; Stop 09/20/18 at 08:14; Status DC Cefazolin Sodium 50 ml @ As Directed STK-MED ONCE IV ; Start 09/20/18 at 08:18; Stop 09/20/18 at 08:19; Status DC Cefazolin Sodium 50 ml @ As Directed STK-MED ONCE IV ; Start 09/20/18 at 08:18; Stop 09/20/18 at 08:19; Status DC Midazolam HCl (Versed) 2 mg STK-MED ONCE .ROUTE ; Start 09/20/18 at 08:39; Stop 09/20/18 at 08:40; Status DC Midazolam HCl (Versed) 2 mg 1X ONCE IV Last administered on 09/20/18at 08:45; Start 09/20/18 at 08:45; Stop 09/20/18 at 08:52; Status DC Fentanyl Citrate (Fentanyl 2ml Vial) 100 mcg 1X ONCE IV Last administered on 09/20/18at 08:45; Start 09/20/18 at 08:45; Stop 09/20/18 at 08:52; Status DC Lidocaine/ Epinephrine (LIDOCAINE 1%-EPI 1:100,000 Multi-Dose) 20 ml 1X ONCE IJ Last administered on 09/20/18at 08:45; Start 09/20/18 at 08:45; Stop 09/20/18 at 08:52; Status DC Cefazolin Sodium 50 ml @ 100 mls/hr 1X ONCE IV Last administered on 09/20/18at 08:45; Start 09/20/18 at 08:45; Stop 09/20/18 at 09:14; Status DC Cefazolin Sodium 50 ml @ 100 mls/hr 1X ONCE IV Last administered on 09/20/18at 08:45; Start 09/20/18 at 08:45; Stop 09/20/18 at 09:14; Status DC Furosemide (Lasix) 40 mg 1X ONCE IVP Last administered on 09/20/18at 14:44; Start 09/20/18 at 14:30; Stop 09/20/18 at 14:31; Status DC Furosemide (Lasix) 40 mg 1X ONCE IVP ; Start 09/21/18 at 12:30; Stop 09/21/18 at 12:31; Status UNV Active Scripts Active Reported Protonix (Pantoprazole Sodium) 20 Mg Tablet.dr 2 Tab PO DAILY Zyprexa (Olanzapine) 20 Mg Tablet 2 Tab PO QHS Buspirone Hcl 30 Mg Tablet 1 Tab PO BID Vitals/I & O Vital Sign - Last 24 Hours 09/20/18 09/20/18 09/20/18 09/20/18 12:51 14:42 15:00 17:00 Temp 97.8 97.8 Pulse 108 Resp 19 B/P (MAP) 164/91 (115) Pulse Ox 92 O2 Delivery Room Air Room Air Room Air Room Air 09/20/18 09/20/18 09/20/18 09/20/18 19:00 19:23 19:40 21:13 Temp 99.9 99.9 Pulse 99 Resp 20 B/P (MAP) 155/100 (118) Pulse Ox 92 O2 Delivery Room Air Room Air Room Air 09/20/18 09/20/18 09/21/18 09/21/18 21:14 23:00 00:16 01:24 Temp 99.6 99.6 Pulse 99 97 Resp 20 B/P (MAP) 155/100 142/94 (110) Pulse Ox 93 O2 Delivery Room Air Room Air 09/21/18 09/21/18 09/21/18 09/21/18 03:00 04:19 05:00 06:11 Temp 98.4 98.4 Pulse 94 Resp 18 B/P (MAP) 141/90 (107) Pulse Ox 90 O2 Delivery Room Air Room Air Room Air 09/21/18 09/21/18 09/21/18 09/21/18 07:00 07:11 08:00 09:27 Temp 98.2 98.2 Pulse 88 88 Resp 18 18 B/P (MAP) 147/77 (100) 147/77 Pulse Ox 100 100 O2 Delivery Room Air Room Air O2 Flow Rate 90.0 09/21/18 09/21/18 11:00 11:04 Temp 98.2 98.2 Pulse 86 Resp 18 18 B/P (MAP) 140/67 (91) Pulse Ox 95 O2 Delivery Room Air Intake and Output 09/20/18 09/20/18 09/21/18 15:00 23:00 07:00 Intake Total 120 ml 360 ml Balance 120 ml 360 ml DEPEA QUINTERO MD Sep 21, 2018 12:33
[2018-09-21] MEDS: ONDANSETRON PF 4 MG/2 ML VIAL. IV PRN (15:07)
--- NOTE | 2018-09-21 15:50 | RAD ---
Indication: Swollen testicle for 4 days TECHNIQUE: Grayscale, color Doppler and spectral waveform images of the bilateral testicles COMPARISON: None FINDINGS: The right testicle measures 3.7 x 2.3 x 2.0 cm and is homogeneous in echogenicity without focal lesion. The right testicle demonstrates evidence of blood flow. Diffuse Significant scrotal wall thickening is seen measuring 2.5 cm. No right hydrocele. Left testicle measures 3.4 x 2.3 x 2.47 m and is homogeneous in echogenicity without focal lesion. Small left hydrocele. Left testicle shows evidence of blood flow. IMPRESSION: 1. No focal testicular lesion. 2. Both testicles show evidence of blood flow. 3. Diffusely thickened scrotal wall with edema. Clinically correlate with scrotal wall cellulitis. Electronically signed by: Malick Velasco DO (09/21/2018 3:47 PM) [facility]
--- NOTE | 2018-09-21 16:20 | NUR ---
Transferred to dialysis by bed.
--- NOTE | 2018-09-21 16:29 | PDOC ---
PROGRESS NOTES Assessment Assessment Generalized weakness. Rhabdomyolysis. Methamphetamine positive. Electrolytes imbalances. AKD. Elevated hepatic enzymes. No evidence of MS this time. No evidence of T-spinal cord pathological findings this time. Defuse dorsal epidural lipomatosis. RECOMMENDATIONS/PLAN: Treat medical diseases. Repeated T-spine MRI on 09/20/18 showed no abnormal findings of T-cord this time. Consulted NS on 09/20/18 for diffuse epidural lipomatosis. Consulted Urology for testicle edema. OT/PT. CSF OCB zero. Repeat T-spine MRI on 09/19/18: No abnormal findings of T-cord except lipomatosis. Past Medical History GI: GERD Psych: Anxiety, Addictions, Depression Past Surgical History No pertinent history Family History No pertinent hx Social History Unemployed, uses methamphetamine, smokes occasionally, rare alcohol. Was said out of incarceration on 09/07/18. ALLERGY: NKDA MEDICATIONS: Refer to MAR REVIEW OF SYSTEMS: Refer to PMH and PSH. PHYSICAL EXAMINATION: General appearance in no acute distress. HEENT: Normocephalic and nontraumatic. Eyes, nose, ears, and throat are unremarkable. Neck is supple. No lymphadenopathy. No Crepitus. Cardiovascular: S1, S2, regular rate and rhythm. Pulmonary: Clear to auscultation bilaterally. Abdomen: Bowel sounds are positive. Extremities: No rash, lesions, or edema. No restriction of range of motion NEUROLOGICAL EXAMINATION: Sleepiness but arousable. Oriented to time, place and person. PERRL. EOMI. CN: no focal findings. Muscle tone: within normal. Muscle strength: 5 DTR: 2 Plantar reflex: Flexor response bilaterally Gait: Able to walk with a walker. Sensory exam: no acute abnormal findings. No cerebellar signs elicited. F-T-N test fine. Objective Objective Vital Signs Date Time Temp Pulse Resp B/P (MAP) Pulse Ox O2 Delivery O2 Flow Rate FiO2 09/21/18 15:38 Room Air 09/21/18 15:00 98.2 94 18 147/71 (96) 94 98.2 09/21/18 07:11 90.0 Intake and Output 09/21/18 07:00 Intake Total 480 ml Balance 480 ml Intake Oral 480 ml # Voids 1 Vitals Signs Vitals VS - Last 72 Hours, by Label Date Time Temp Pulse Resp B/P (MAP) Pulse Ox O2 Delivery O2 Flow Rate FiO2 09/21/18 15:38 Room Air 09/21/18 15:04 Room Air 09/21/18 15:00 98.2 94 18 147/71 (96) 94 Room Air 98.2 09/21/18 12:55 81 161/79 (106) 09/21/18 12:00 Room Air 09/21/18 11:04 18 Room Air 09/21/18 11:00 98.2 86 18 140/67 (91) 95 98.2 09/21/18 09:27 88 147/77 09/21/18 08:00 Room Air 09/21/18 07:11 18 100 90.0 09/21/18 07:00 98.2 88 18 147/77 (100) 100 98.2 09/21/18 06:11 Room Air 09/21/18 04:19 Room Air 09/21/18 03:00 98.4 94 18 141/90 (107) 90 98.4 09/21/18 01:24 Room Air 09/21/18 00:16 Room Air 09/20/18 23:00 99.6 97 20 142/94 (110) 93 99.6 09/20/18 21:14 99 155/100 09/20/18 21:13 Room Air 09/20/18 19:40 Room Air 09/20/18 19:23 Room Air 09/20/18 19:00 99.9 99 20 155/100 (118) 92 99.9 09/20/18 17:00 Room Air 09/20/18 15:00 97.8 108 19 164/91 (115) 92 Room Air 97.8 09/20/18 14:42 Room Air 09/20/18 12:51 Room Air 09/20/18 11:00 98.2 72 19 124/77 (93) 97 Room Air 98.2 09/20/18 10:43 Room Air 09/20/18 10:02 Room Air 09/20/18 09:29 89 141/92 09/20/18 08:53 82 12 96 Nasal Cannula 3.0 09/20/18 08:45 12 09/20/18 08:30 Room Air 09/20/18 07:00 98.3 83 19 142/78 (99) 94 Room Air 98.3 Laboratory Laboratory Laboratory Tests Test 09/21/18 04:04 Sodium Level 130 mmol/L (136-145) Potassium Level 4.5 mmol/L (3.5-5.1) Chloride Level 94 mmol/L (98-107) Carbon Dioxide Level 21 mmol/L (21-32) Anion Gap 15 (6-14) Blood Urea Nitrogen 38 mg/dL (8-26) Creatinine 7.6 mg/dL (0.7-1.3) Estimated GFR (Cockcroft-Gault) 8.4 Glucose Level 104 mg/dL (70-99) Calcium Level 8.4 mg/dL (8.5-10.1) Phosphorus Level 5.3 mg/dL (2.6-4.7) Creatine Kinase 1778 U/L (39-308) Albumin 2.2 g/dL (3.4-5.0) Microbiology 09/12/18 Blood Culture - Final, Complete NO GROWTH AFTER 5 DAYS 09/12/18 CSF Gram Stain - Final, Complete 09/11/18 Urine Culture - Final, Complete 09/11/18 Urine Culture Result 1 ([place]) - Final, Complete Medication Medications Current Medications Furosemide (Lasix) 40 mg 1X ONCE IVP Last administered on 09/21/18at 12:49; Start 09/21/18 at 12:30; Stop 09/21/18 at 12:31; Status DC Comment Review of Relevant I have reviewed the following items ashlie (where applicable) has been applied. KIM ELDER MD Sep 21, 2018 16:29
[2018-09-21] MEDS ORDERED: IV NORMAL SALINE 1000ML BAG 1,000 ML IV PRN ×2 (16:54)
[2018-09-21] MEDS ORDERED: DIALYSIS PATIENT. MC PRN ×2 (17:00)
[2018-09-21] MEDS: GABAPENTIN 300 MG CAPSULE. PO SCH (20:30)
[2018-09-21] MEDS: PATCH REMOVAL. MC SCH (20:31)
--- NOTE | 2018-09-21 20:36 | NUR ---
NO LIDOCAINE PATCH IN PLACE TO REMOVE AT THIS TIME.
--- NOTE | 2018-09-21 23:06 | CONS ---
DATE OF CONSULTATION: 09/21/2018 I was asked to see the patient because of continued problems with lower extremity weakness. The patient was recently released from incarceration and had some difficulties with methamphetamine. He was admitted about 10 days ago with a relatively profound diffuse weakness, which was more pronounced in his lower extremities and his upper extremities. He was in renal failure. He had rhabdomyolysis and underwent dialysis as well as supportive care. In speaking with the patient he reports that he has gradually noticed an increase in strength. He says that his upper extremities feel as though they have normal strength at this time. His lower extremities, he says also feels quite strong. He is able to walk with his walker. He does notice, however, problems with swelling, primarily in his lower extremities and says that he feels as though there is a tingling sensation in both of his legs and feet. When asked about pain, he reports significant lower back pain. PAST MEDICAL HISTORY, PERSONAL HISTORY, REVIEW OF SYSTEMS: Well evaluated and on the chart. He is later today going for further hemodialysis. PHYSICAL EXAMINATION: GENERAL: At this point, he is alert, pleasant, cooperative, an excellent historian. NEUROLOGIC: Cranial nerves were intact. Motor examination: His strength is 5/5 in upper extremities and 4+ to 5/5 in his lower extremities. On sensory examination, he is intact to light touch in his upper extremities with 1+ reflexes. In the lower extremities, he reported that subjective change in sensation with 1+ reflexes knees and ankles. Negative straight leg raising. There are no pathologic reflexes. Examination of the lumbar spine: There is tenderness diffusely in the very lower lumbar spine and the midline adjacent paraspinal regions. I have reviewed a recent thoracic MRI scan. He does have an element of epidural lipomatosis and mild thoracic stenosis, but I did not see significant thoracic stenosis at any level. IMPRESSION: He is making progress and slowly improving neurologically. My recommendation is to continue with his present management plan. KRISHNA RUGGIERO MD DR: LATONIA/arpit JOB#: [id number] / [id number]
[2018-09-22] MEDS: MORPHINE SULFATE 4 MG/ML VIAL. IV PRN ×5 (02:40→23:43)
[2018-09-22 03:00] VITALS: BP 114/70
[2018-09-22] MEDS: oxyCODONE IR 5 MG TABLET PO PRN ×4 (04:42→20:13)
[2018-09-22 05:24] LABS: ALBUMIN 2.3 g/dL (3.4-5.0); CALCIUM 8.5 mg/dL (8.5-10.1); CREATININE 6.1 mg/dL (0.7-1.3); GFR 10.9; PHOSPHORUS 3.8 mg/dL (2.6-4.7); POTASSIUM 3.9 mmol/L (3.5-5.1)
[2018-09-22 07:00] VITALS: BP 142/82
[2018-09-22] MEDS: LACTOBACILLUS RHAMNOSUS GG 1 CAPSULE. PO SCH ×2 (07:59→21:16)
[2018-09-22] MEDS: POLYETHYLENE GLYCOL 3350 17 GM PACKET. PO SCH (07:59)
[2018-09-22] MEDS: LIDOCAINE (700MG/PATCH) PATCH. TD SCH (07:59)
[2018-09-22] MEDS: PANTOPRAZOLE 40 MG TABLET.DR. PO SCH (07:59)
[2018-09-22] MEDS: LABETALOL HCL 100 MG TABLET. PO SCH ×2 (08:00→21:19)
--- NOTE | 2018-09-22 09:31 | PDOC ---
PROGRESS NOTES Chief Complaint Chief Complaint Status post tunneled catheter placement this morning New ESRD-initiation of HD/ ccrt at some point Hypotension, resolved Anasarca Hepatorenal syndrome Elevated troponin in the background of sepsis scrotal cellulitis-09/22/18 Methamphetamine abuse Metabolic encephalopathy, improved etoh drinker Sepsis with hypotension, resolved MOD to sever PCM Oliguric renal failure Accelerated hypertension, better History of Present Illness History of Present Illness continues to have anasarca I think they get fluid off during dialysis Scrotum large Ultrasound: IMPRESSION: 1. No focal testicular lesion. 2. Both testicles show evidence of blood flow. 3. Diffusely thickened scrotal wall with edema. Clinically correlate with scrotal wall cellulitis. NO abx Allergies Blood pressure better since I started labetalol 200 twice a day, 2 days ago Plan: social work on board, self-pay versus Medicaid?? Will need dialysis as outpatient as I have verified with Dr. Mcintosh Start Rocephin for scrotal cellulitis continues to be oliguric Vitals Vitals Vital Signs Date Time Temp Pulse Resp B/P (MAP) Pulse Ox O2 Delivery O2 Flow Rate FiO2 09/22/18 08:32 Room Air 09/22/18 08:00 94 142/82 09/22/18 07:00 98.4 18 94 98.4 09/21/18 21:01 90.0 Physical Exam Physical Exam GENERAL: Standing with PT then sat down, NAD, coop EENT: Pupils equal, oral cavity clear NECK: Supple. LUNGS: Clear bilaterally. No wheezing. HEART: S1, S2, regular, tachy 108s ABDOMEN: Soft, nontender, BS present : Fernandez EXTREMITIES: Generalized trace edema, no cyanosis. Right index with min swelling. Lesions are stable - mild maceration CENTRAL NERVOUS SYSTEM: Alert, answering appropriately RIJ/HDC without signs of complications PIV General: Oriented X3, Cooperative, mild distress Heart: Regular rate, Normal S1, No murmurs Lungs: Clear Abdomen: Normal bowel sounds, Soft, No hepatosplenomegaly, Other (obese, no fluid wave) Extremities: No clubbing, No cyanosis, No edema, Other (burn to right index finger APPEARS OLD associated cellulitis) Labs LABS Laboratory Tests Test 09/22/18 04:30 Sodium Level 132 mmol/L (136-145) Potassium Level 3.9 mmol/L (3.5-5.1) Chloride Level 96 mmol/L (98-107) Carbon Dioxide Level 28 mmol/L (21-32) Anion Gap 8 (6-14) Blood Urea Nitrogen 28 mg/dL (8-26) Creatinine 6.1 mg/dL (0.7-1.3) Estimated GFR (Cockcroft-Gault) 10.9 Glucose Level 106 mg/dL (70-99) Calcium Level 8.5 mg/dL (8.5-10.1) Phosphorus Level 3.8 mg/dL (2.6-4.7) Creatine Kinase 1440 U/L (39-308) Albumin 2.3 g/dL (3.4-5.0) Review of Systems Review of Systems biLateral scrotum painful and swollen otherwise the rest of ROS 14 point negative Assessment and Plan Assessmemt and Plan Problems Medical Problems: (1) Elevated troponin Status: Acute (2) Hepatorenal syndrome Status: Acute (3) Hyperkalemia Status: Acute (4) Hyponatremia Status: Acute (5) Methamphetamine abuse Status: Acute (6) Neurological complaint Status: Acute (7) Rhabdomyolysis Status: Acute (8) Urinary retention Status: Acute (9) Urinary tract infection Status: Acute Comment Review of Relevant I have reviewed the following items ashlie (where applicable) has been applied. Labs Laboratory Tests Test 09/21/18 04:04 09/22/18 04:30 Sodium Level 130 mmol/L (136-145) 132 mmol/L (136-145) Potassium Level 4.5 mmol/L (3.5-5.1) 3.9 mmol/L (3.5-5.1) Chloride Level 94 mmol/L (98-107) 96 mmol/L (98-107) Carbon Dioxide Level 21 mmol/L (21-32) 28 mmol/L (21-32) Anion Gap 15 (6-14) 8 (6-14) Blood Urea Nitrogen 38 mg/dL (8-26) 28 mg/dL (8-26) Creatinine 7.6 mg/dL (0.7-1.3) 6.1 mg/dL (0.7-1.3) Estimated GFR (Cockcroft-Gault) 8.4 10.9 Glucose Level 104 mg/dL (70-99) 106 mg/dL (70-99) Calcium Level 8.4 mg/dL (8.5-10.1) 8.5 mg/dL (8.5-10.1) Phosphorus Level 5.3 mg/dL (2.6-4.7) 3.8 mg/dL (2.6-4.7) Creatine Kinase 1778 U/L (39-308) 1440 U/L (39-308) Albumin 2.2 g/dL (3.4-5.0) 2.3 g/dL (3.4-5.0) Laboratory Tests Test 09/22/18 04:30 Sodium Level 132 mmol/L (136-145) Potassium Level 3.9 mmol/L (3.5-5.1) Chloride Level 96 mmol/L (98-107) Carbon Dioxide Level 28 mmol/L (21-32) Anion Gap 8 (6-14) Blood Urea Nitrogen 28 mg/dL (8-26) Creatinine 6.1 mg/dL (0.7-1.3) Estimated GFR (Cockcroft-Gault) 10.9 Glucose Level 106 mg/dL (70-99) Calcium Level 8.5 mg/dL (8.5-10.1) Phosphorus Level 3.8 mg/dL (2.6-4.7) Creatine Kinase 1440 U/L (39-308) Albumin 2.3 g/dL (3.4-5.0) Microbiology 09/12/18 Blood Culture - Final, Complete NO GROWTH AFTER 5 DAYS 09/12/18 CSF Gram Stain - Final, Complete 09/11/18 Urine Culture - Final, Complete 09/11/18 Urine Culture Result 1 ([place]) - Final, Complete Medications Current Medications Morphine Sulfate (Morphine Sulfate) 4 mg 1X ONCE IV Last administered on 09/11/18at 21:20; Start 09/11/18 at 21:30; Stop 09/11/18 at 21:31; Status DC Sodium Chloride 1,000 ml @ 1,000 mls/hr 1X ONCE IV Last administered on 09/11/18at 22:30; Start 09/11/18 at 22:30; Stop 09/11/18 at 23:29; Status DC Calcium Gluconate (Calcium Gluconate) 1,000 mg 1X ONCE IVP Last administered on 09/11/18at 22:43; Start 09/11/18 at 23:00; Stop 09/11/18 at 23:01; Status DC Insulin Human Regular (HumuLIN R VIAL) 10 unit 1X ONCE IV Last administered on 09/11/18at 23:51; Start 09/11/18 at 23:00; Stop 09/11/18 at 23:01; Status DC Dextrose (Dextrose 50%-Water Syringe) 25 gm 1X ONCE IV Last administered on 09/11/18at 22:42; Start 09/11/18 at 23:00; Stop 09/11/18 at 23:01; Status DC Sodium Bicarbonate (Sodium Bicarb Adult 8.4% Syr) 50 meq 1X ONCE IV Last administered on 09/11/18at 23:49; Start 09/11/18 at 23:00; Stop 09/11/18 at 23:01; Status DC Sodium Chloride 1,000 ml @ 1,000 mls/hr 1X ONCE IV Last administered on 09/11/18at 23:50; Start 09/11/18 at 23:00; Stop 09/11/18 at 23:59; Status DC Albuterol Sulfate (Ventolin Neb Soln) 10 mg 1X ONCE CONT NEB Last administered on 09/12/18at 00:30; Start 09/11/18 at 23:00; Stop 09/11/18 at 23:01; Status DC Ceftriaxone Sodium (Rocephin) 1 gm 1X ONCE IVP Last administered on 09/11/18at 22:43; Start 09/11/18 at 23:00; Stop 09/11/18 at 23:01; Status DC Sodium Chloride 1,000 ml @ 1,000 mls/hr 1X ONCE IV Last administered on 09/12/18at 01:00; Start 09/12/18 at 01:00; Stop 09/12/18 at 01:59; Status DC Lorazepam (Ativan Inj) 0.5 mg PRN Q6HRS PRN IV ANXIETY / AGITATION Last administered on 09/12/18at 11:00; Start 09/12/18 at 01:15; Stop 09/13/18 at 08:48; Status DC Ondansetron HCl (Zofran) 4 mg PRN Q6HRS PRN IV NAUSEA/VOMITING 1ST CHOICE; Start 09/12/18 at 01:15; Stop 09/12/18 at 01:22; Status DC Sodium Chloride (Normal Saline Flush) 3 ml QSHIFT PRN IV AFTER MEDS AND BLOOD DRAWS; Start 09/12/18 at 01:15 Sodium Chloride 1,000 ml @ 175 mls/hr Q5H43M IV ; Start 09/12/18 at 01:08; Stop 09/12/18 at 01:23; Status DC Ondansetron HCl (Zofran) 4 mg PRN Q8HRS PRN IV NAUSEA/VOMITING 1ST CHOICE; Start 09/12/18 at 01:15; Stop 09/13/18 at 01:14; Status DC Sodium Chloride 1,000 ml @ 150 mls/hr Q6H40M IV ; Start 09/12/18 at 01:30; Stop 09/12/18 at 18:49; Status DC Morphine Sulfate (Morphine Sulfate) 4 mg PRN Q4HRS PRN IV SEVERE PAIN Last administered on 09/22/18at 08:00; Start 09/12/18 at 09:00 Sodium Bicarbonate (Sodium Bicarb Adult 8.4% Syr) 100 meq 1X ONCE IV Last administered on 09/12/18at 10:02; Start 09/12/18 at 10:00; Stop 09/12/18 at 10:01; Status DC Sodium Chloride 1,000 ml @ 1,000 mls/hr 1X ONCE IV Last administered on 09/12/18at 09:56; Start 09/12/18 at 10:00; Stop 09/12/18 at 10:59; Status DC Lidocaine/Sodium Bicarbonate (Buffered Lidocaine 1%) 3 ml STK-MED ONCE .ROUTE ; Start 09/12/18 at 11:07; Stop 09/12/18 at 11:08; Status DC Calcium Gluconate (Calcium Gluconate) 2,000 mg 1X ONCE IVP Last administered on 09/12/18at 13:38; Start 09/12/18 at 12:00; Stop 09/12/18 at 12:01; Status DC Ceftriaxone Sodium (Rocephin) 1 gm Q24H IVP Last administered on 09/12/18at 12: 49; Start 09/12/18 at 13:00; Stop 09/13/18 at 07:45; Status DC Silver Sulfadiazine (Silvadene) 1 elinor BID TP Last administered on 09/13/18at 10:06; Start 09/12/18 at 13:00; Stop 09/13/18 at 15:04; Status DC Sodium Chloride 1,000 ml @ 1,000 mls/hr 1X ONCE IV Last administered on 09/12/18at 12:47; Start 09/12/18 at 12:45; Stop 09/12/18 at 13:44; Status DC Pantoprazole Sodium (Protonix) 40 mg DAILYAC PO ; Start 09/12/18 at 13:30; Stop 09/12/18 at 19:22; Status DC Polyethylene Glycol (miraLAX PACKET) 17 gm DAILY PO Last administered on 09/22/18at 07:59; Start 09/12/18 at 13:30 Lidocaine/Sodium Bicarbonate (Buffered Lidocaine 1%) 3 ml STK-MED ONCE .ROUTE ; Start 09/12/18 at 13:48; Stop 09/12/18 at 13:49; Status DC Haloperidol Lactate (Haldol Inj) 1 mg PRN Q8HRS PRN IVP AGITATION Last administered on 09/14/18at 07:56; Start 09/12/18 at 14:00 Lorazepam (Ativan Inj) 2 mg PRN Q2HRS PRN IV ANXIETY. Last administered on 09/16/18at 21:22; Start 09/12/18 at 14:00; Stop 09/17/18 at 10:17; Status DC Lidocaine/Sodium Bicarbonate (Buffered Lidocaine 1%) 6 ml 1X ONCE INJ ; Start 09/12/18 at 14:15; Stop 09/12/18 at 14:16; Status DC Dexmedetomidine HCl 200 mcg/ Sodium Chloride 50 ml @ 0 mls/hr CONT PRN IV PER PROTOCOL Last administered on 09/15/18at 10:28; Start 09/12/18 at 14:15; Stop 09/17/18 at 10:17; Status DC Sodium Chloride 500 ml @ 500 mls/hr 1X PRN PRN IV SEE COMMENTS; Start 09/12/18 at 14:15; Stop 09/20/18 at 14:54; Status DC Atropine Sulfate (ATROPINE 0.5mg SYRINGE) 0.5 mg PRN Q5MIN PRN IV SEE COMMENTS; Start 09/12/18 at 14:15 Sodium Chloride 1,000 ml @ 1,000 mls/hr Q1H PRN IV hypotension; Start 09/12/18 at 15:08; Stop 09/12/18 at 21:07; Status DC Diphenhydramine HCl (Benadryl) 25 mg 1X PRN PRN IV ITCHING; Start 09/12/18 at 15:15; Stop 09/13/18 at 11:19; Status DC Diphenhydramine HCl (Benadryl) 25 mg 1X PRN PRN IV ITCHING; Start 09/12/18 at 15:15; Stop 09/13/18 at 11:19; Status DC Sodium Chloride 1,000 ml @ 400 mls/hr Q2H30M PRN IV PATENCY; Start 09/12/18 at 15:08; Stop 09/13/18 at 03:07; Status DC Info (PHARMACY MONITORING -- do not chart) 1 each PRN DAILY PRN MC SEE COMMENTS; Start 09/12/18 at 15:15; Stop 09/13/18 at 11:18; Status DC Pantoprazole Sodium (PROTONIX VIAL for IV PUSH) 40 mg DAILYAC IVP Last administered on 09/17/18at 10:04; Start 09/13/18 at 07:30; Stop 09/17/18 at 11:54; Status DC Linezolid (Zyvox) 600 mg BID PO Last administered on 09/19/18at 20:55; Start at 09:00; Stop 09/19/18 at 22:00; Status DC Ceftriaxone Sodium (Rocephin) 2 gm Q24H IVP Last administered on 09/16/18at 12:14; Start 09/13/18 at 13:00; Stop 09/17/18 at 10:06; Status DC Calcium Gluconate 2000 mg/Dextrose 120 ml @ 220 mls/hr 1X ONCE IV Last administered on 09/13/18at 10:05; Start 09/13/18 at 10:00; Stop 09/13/18 at 10:32; Status DC Sodium Chloride 1,000 ml @ 1,000 mls/hr Q1H PRN IV hypotension; Start 09/13/18 at 11:06; Stop 09/13/18 at 17:05; Status DC Diphenhydramine HCl (Benadryl) 25 mg 1X PRN PRN IV ITCHING; Start 09/13/18 at 11:15; Stop 09/14/18 at 11:14; Status DC Diphenhydramine HCl (Benadryl) 25 mg 1X PRN PRN IV ITCHING; Start 09/13/18 at 11:15; Stop 09/14/18 at 11:14; Status DC Sodium Chloride 1,000 ml @ 400 mls/hr Q2H30M PRN IV PATENCY; Start 09/13/18 at 11:06; Stop 09/13/18 at 23:05; Status DC Info (PHARMACY MONITORING -- do not chart) 1 each PRN DAILY PRN MC SEE COMMENTS; Start 09/13/18 at 11:15; Status Cancel Potassium Chloride 10 meq/ Calcium Chloride 12.5 meq/ Bicarbonate Dialysis Soln w/ out KCl 5,013.9286 ml @ 1,000 mls/hr Q5H1M IV ; Start 09/14/18 at 13:00; Status Cancel Potassium Chloride 20 meq/ Calcium Chloride 12.5 meq/ Bicarbonate Dialysis Soln w/ out KCl 5,018.9286 ml @ 1,500 mls/hr Q3H21M IV ; Start 09/14/18 at 13:00; Stop 09/14/18 at 13:00; Status DC Heparin Sodium (Porcine) (Heparin Sodium) 4,000 unit 1X ONCE IV Last a dministered on 09/14/18at 19:54; Start 09/14/18 at 12:00; Stop 09/14/18 at 12:11; Status DC Heparin Sodium/ Dextrose 500 ml @ 0 mls/hr CONT PRN IV SEE I/O RECORD Last administered on 09/15/18at 15:05; Start 09/14/18 at 12:00; Stop 09/16/18 at 08:03; Status DC Heparin Sodium (Porcine) (Heparin Sodium) 2,500 unit PRN Q6HRS PRN IV FOR UFH LEVEL LESS THAN 0.2; Start 09/14/18 at 12:00; Stop 09/17/18 at 13:16; Status DC Potassium Chloride 10 meq/ Calcium Chloride 12.5 meq/ Bicarbonate Dialysis Soln w/ out KCl 5,013.9286 ml @ 1,000 mls/hr Q5H1M IV ; Start 09/14/18 at 13:00; Stop 09/14/18 at 13:00; Status DC Potassium Chloride 10 meq/ Bicarbonate Dialysis Soln w/ out KCl 5,005 ml @ 1,000 mls/hr Q5H1M IV ; Start 09/14/18 at 13:00; Stop 09/14/18 at 13:00; Status DC Potassium Chloride 20 meq/ Bicarbonate Dialysis Soln w/ out KCl 5,010 ml @ 1,500 mls/hr Q3H21M IV ; Start 09/14/18 at 13:00; Stop 09/14/18 at 13:00; Status DC Potassium Chloride 10 meq/ Bicarbonate Dialysis Soln w/ out KCl 5,005 ml @ 1,500 mls/hr Q3H21M IV ; Start 09/14/18 at 13:00; Stop 09/14/18 at 13:00; Status DC Potassium Chloride 20 meq/ Bicarbonate Dialysis Soln w/ out KCl 5,010 ml @ 1,000 mls/hr Q5H1M IV Last administered on 09/15/18at 20:43; Start 09/14/18 at 13:00; Stop 09/16/18 at 08:03; Status DC Potassium Chloride 20 meq/ Bicarbonate Dialysis Soln w/ out KCl 5,010 ml @ 1,500 mls/hr Q3H21M IV ; Start 09/14/18 at 12:45; Stop 09/14/18 at 12:45; Status DC Potassium Chloride 40 meq/ Bicarbonate Dialysis Soln w/ out KCl 5,020 ml @ 1,500 mls/hr Q3H21M IV ; Start 09/14/18 at 13:00; Stop 09/14/18 at 13:10; Status DC Potassium Chloride 60 meq/ Bicarbonate Dialysis Soln w/ out KCl 5,030 ml @ 1,500 mls/hr Q3H22M IV ; Start 09/14/18 at 13:00; Stop 09/14/18 at 13:07; Status DC Potassium Chloride 30 meq/ Bicarbonate Dialysis Soln w/ out KCl 5,015 ml @ 1,500 mls/hr Q3H21M IV ; Start 09/14/18 at 13:15; Stop 09/14/18 at 18:00; Status DC Potassium Chloride 20 meq/ Bicarbonate Dialysis Soln w/ out KCl 5,010 ml @ 1,500 mls/hr Q3H21M IV Last administered on 09/14/18at 21:06; Start 09/14/18 at 13:10; Stop 09/14/18 at 18:00; Status DC Potassium Chloride 30 meq/ Bicarbonate Dialysis Soln w/ out KCl 5,015 ml @ 1,500 mls/hr Q3H21M IV ; Start 09/14/18 at 18:00; Stop 09/14/18 at 19:10; Status DC Potassium Chloride 20 meq/ Bicarbonate Dialysis Soln w/ out KCl 5,010 ml @ 1,500 mls/hr Q3H21M IV Last administered on 09/16/18at 00:15; Start 09/14/18 at 18:01; Stop 09/16/18 at 08:03; Status DC Potassium Chloride 20 meq/ Bicarbonate Dialysis Soln w/ out KCl 5,010 ml @ 1,500 mls/hr Q3H21M IV Last administered on 09/16/18at 00:18; Start 09/14/18 at 20:00; Stop 09/16/18 at 08:03; Status DC Lactobacillus Rhamnosus (Culturelle) 1 cap BID PO Last administered on 09/22/18at 07:59; Start 09/16/18 at 21:00 Oxycodone HCl (Roxicodone) 5 mg PRN Q4HRS PRN PO MODERATE TO SEVERE PAIN Last administered on 09/22/18at 04:42; Start 09/16/18 at 11:45 Lorazepam (Ativan Inj) 1 mg PRN Q8HRS PRN IV ANXIETY.; Start 09/16/18 at 16:00 Gabapentin (Neurontin) 300 mg QHS PO Last administered on 09/21/18at 20:30; Start 09/16/18 at 21:00 Labetalol HCl (Normodyne Iv Push) 10 mg PRN Q4HRS PRN IVP HYPERTENSION Last administered on 09/17/18at 03:33; Start 09/16/18 at 23:30; Stop 09/17/18 at 09:26; Status DC Labetalol HCl (Normodyne Iv Push) 20 mg PRN Q4HRS PRN IVP HYPERTENSION; Start 09/17/18 at 09:30; Stop 09/18/18 at 19:10; Status DC Ondansetron HCl (Zofran) 4 mg PRN Q6HRS PRN IV NAUSEA/VOMITING Last administered on 09/21/18at 15:07; Start 09/17/18 at 09:30 Acetaminophen (Tylenol) 500 mg PRN Q6HRS PRN PO MILD PAIN / TEMP; Start 09/17/18 at 09:30 Lidocaine (Lidoderm) 1 patch DAILY TD Last administered on 09/22/18at 07:59; Start 09/17/18 at 10:00 Miscellaneous (Lidoderm Patch Removal) 1 ea QHS MC Last administered on 09/20/18at 21:00; Start 09/17/18 at 21:00 Sodium Chloride 1,000 ml @ 1,000 mls/hr Q1H PRN IV hypotension; Start 09/17/18 at 11:26; Stop 09/17/18 at 17:25; Status DC Albumin Human 200 ml @ 200 mls/hr 1X PRN PRN IV Hypotension; Start 09/17/18 at 11:30; Stop 09/17/18 at 17:29; Status DC Sodium Chloride (Normal Saline Flush) 10 ml 1X PRN PRN IV AP catheter pack; Start 09/17/18 at 11:30; Stop 09/18/18 at 11:29; Status DC Sodium Chloride (Normal Saline Flush) 10 ml 1X PRN PRN IV DEVELOPMENT SPEC catheter pack; Start 09/17/18 at 11:30; Stop 09/18/18 at 11:29; Status DC Sodium Chloride 1,000 ml @ 400 mls/hr Q2H30M PRN IV PATENCY; Start 09/17/18 at 11:26; Stop 09/17/18 at 23:25; Status DC Info (PHARMACY MONITORING -- do not chart) 1 each PRN DAILY PRN MC SEE COMMENTS; Start 09/17/18 at 11:30; Status UNV Info (PHARMACY MONITORING -- do not chart) 1 each PRN DAILY PRN MC SEE COMMENTS; Start 09/17/18 at 11:30 Pantoprazole Sodium (Protonix) 40 mg DAILYAC PO Last administered on 09/22/18at 07:59; Start 09/18/18 at 07:30 Labetalol HCl (Trandate) 100 mg BID PO Last administered on 09/18/18at 19:40; Start 09/18/18 at 09:00; Stop 09/19/18 at 09:13; Status DC Lorazepam (Ativan) 0.5 mg PRN Q8HRS PRN PO ANXIETY / AGITATION; Start 09/18/18 at 09:00 Haloperidol (Haldol) 0.5 mg PRN QID PRN PO AGITATION, 2ND CHOICE; Start 09/18/18 at 09:00; Stop 09/18/18 at 09:03; Status DC Haloperidol Lactate (HALDOL 2mg ORAL CONC) 0.5 mg PRN QID PRN PO AGITATION, 2ND CHOICE; Start 09/18/18 at 09:03 Metoprolol Tartrate (Lopressor Vial) 10 mg PRN Q6HRS PRN IVP HYPERTENSION; Start 09/18/18 at 19:15 Labetalol HCl (Trandate) 200 mg BID PO Last administered on 09/22/18at 08:00; Start 09/19/18 at 10:00 Sodium Chloride 1,000 ml @ 1,000 mls/hr Q1H PRN IV hypotension; Start 09/19/18 at 10:18; Stop 09/19/18 at 16:17; Status DC Diphenhydramine HCl (Benadryl) 25 mg 1X PRN PRN IV ITCHING; Start 09/19/18 at 10:30; Stop 09/20/18 at 10:29; Status DC Diphenhydramine HCl (Benadryl) 25 mg 1X PRN PRN IV ITCHING; Start 09/19/18 at 10:30; Stop 09/20/18 at 10:29; Status DC Sodium Chloride 1,000 ml @ 400 mls/hr Q2H30M PRN IV PATENCY; Start 09/19/18 at 10:18; Stop 09/19/18 at 22:17; Status DC Info (PHARMACY MONITORING -- do not chart) 1 each PRN DAILY PRN MC SEE COMMENTS; Start 09/19/18 at 10:30; Status UNV Midazolam HCl (Versed) 2 mg STK-MED ONCE .ROUTE ; Start 09/20/18 at 08:12; Stop 09/20/18 at 08:13; Status DC Fentanyl Citrate (Fentanyl 2ml Vial) 100 mcg STK-MED ONCE .ROUTE ; Start 09/20/18 at 08:12; Stop 09/20/18 at 08:13; Status DC Lidocaine/ Epinephrine (LIDOCAINE 1%-EPI 1:100,000 Multi-Dose) 20 ml STK-MED ONCE .ROUTE ; Start 09/20/18 at 08:13; Stop 09/20/18 at 08:14; Status DC Cefazolin Sodium 50 ml @ As Directed STK-MED ONCE IV ; Start 09/20/18 at 08:18; Stop 09/20/18 at 08:19; Status DC Cefazolin Sodium 50 ml @ As Directed STK-MED ONCE IV ; Start 09/20/18 at 08:18; Stop 09/20/18 at 08:19; Status DC Midazolam HCl (Versed) 2 mg STK-MED ONCE .ROUTE ; Start 09/20/18 at 08:39; Stop 09/20/18 at 08:40; Status DC Midazolam HCl (Versed) 2 mg 1X ONCE IV Last administered on 09/20/18at 08:45; Start 09/20/18 at 08:45; Stop 09/20/18 at 08:52; Status DC Fentanyl Citrate (Fentanyl 2ml Vial) 100 mcg 1X ONCE IV Last administered on 09/20/18at 08:45; Start 09/20/18 at 08:45; Stop 09/20/18 at 08:52; Status DC Lidocaine/ Epinephrine (LIDOCAINE 1%-EPI 1:100,000 Multi-Dose) 20 ml 1X ONCE IJ Last administered on 09/20/18at 08:45; Start 09/20/18 at 08:45; Stop 09/20/18 at 08:52; Status DC Cefazolin Sodium 50 ml @ 100 mls/hr 1X ONCE IV Last administered on 09/20/18at 08:45; Start 09/20/18 at 08:45; Stop 09/20/18 at 09:14; Status DC Cefazolin Sodium 50 ml @ 100 mls/hr 1X ONCE IV Last administered on 09/20/18at 08:45; Start 09/20/18 at 08:45; Stop 09/20/18 at 09:14; Status DC Furosemide (Lasix) 40 mg 1X ONCE IVP Last administered on 09/20/18at 14:44; Start 09/20/18 at 14:30; Stop 09/20/18 at 14:31; Status DC Furosemide (Lasix) 40 mg 1X ONCE IVP Last administered on 09/21/18at 12:49; Start 09/21/18 at 12:30; Stop 09/21/18 at 12:31; Status DC Sodium Chloride 1,000 ml @ 1,000 mls/hr Q1H PRN IV hypotension; Start 09/21/18 at 16:54; Stop 09/21/18 at 22:53; Status DC Sodium Chloride 1,000 ml @ 400 mls/hr Q2H30M PRN IV PATENCY; Start 09/21/18 at 16:54; Stop 09/22/18 at 04:53; Status DC Info (PHARMACY MONITORING -- do not chart) 1 each PRN DAILY PRN MC SEE COMMENTS; Start 09/21/18 at 17:00 Info (PHARMACY MONITORING -- do not chart) 1 each PRN DAILY PRN MC SEE COMMENTS; Start 09/21/18 at 17:00; Status UNV Active Scripts Active Reported Protonix (Pantoprazole Sodium) 20 Mg Tablet. 2 Tab PO DAILY Zyprexa (Olanzapine) 20 Mg Tablet 2 Tab PO QHS Buspirone Hcl 30 Mg Tablet 1 Tab PO BID Vitals/I & O Vital Sign - Last 24 Hours 09/21/18 09/21/18 09/21/18 09/21/18 11:00 11:04 12:00 12:55 Temp 98.2 98.2 Pulse 86 81 Resp 18 18 B/P (MAP) 140/67 (91) 161/79 (106) Pulse Ox 95 O2 Delivery Room Air Room Air 09/21/18 09/21/18 09/21/18 09/21/18 15:00 15:04 20:00 20:00 Temp 98.2 99.3 98.2 99.3 Pulse 94 106 Resp 18 20 B/P (MAP) 147/71 (96) 133/88 (103) Pulse Ox 94 93 O2 Delivery Room Air Room Air Room Air 09/21/18 09/21/18 09/21/18 09/21/18 20:30 20:31 21:01 22:15 Pulse 106 B/P (MAP) 133/88 Pulse Ox 93 93 O2 Delivery Room Air Room Air O2 Flow Rate 90.0 90.0 09/21/18 09/22/18 09/22/18 09/22/18 23:00 02:40 03:00 04:42 Temp 99.8 99.0 99.8 99.0 Pulse 110 91 Resp 20 18 B/P (MAP) 128/69 (88) 114/70 (85) Pulse Ox 91 92 O2 Delivery Room Air Room Air 09/22/18 09/22/18 09/22/1820/19 07:00 08:00 08:00 08:32 Temp 98.4 98.4 Pulse 94 94 Resp 18 B/P (MAP) 142/82 (102) 142/82 Pulse Ox 94 O2 Delivery Room Air Room Air Room Air l Intake and Output 09/21/18 09/21/18 09/22/18 14:59 22:59 06:59 Intake Total 150 ml 0 ml 120 ml Output Total 500 ml Balance -350 ml 0 ml 120 ml DEEPA QUINTERO MD Sep 22, 2018 09:31
[2018-09-22 11:00] VITALS: BP 150/86
[2018-09-22] MEDS: cefTRIAXone IV Push 1 GM VIAL. IVP SCH (11:19)
--- NOTE | 2018-09-22 11:54 | PDOC ---
Renal-Progress Notes Subjective Notes Notes NO NEW COMPLAINTS History of Present Illness Hx of present illness STABLE Vitals Vitals Vital Signs Date Time Temp Pulse Resp B/P (MAP) Pulse Ox O2 Delivery O2 Flow Rate FiO2 09/22/18 11:19 Room Air 09/22/18 11:00 98.4 90 18 150/86 (107) 94 98.4 09/21/18 21:01 90.0 Weight Weight [ ] I.O. Intake and Output Intake and Output 09/22/18 07:00 Intake Total 270 ml Output Total 500 ml Balance -230 ml Intake Oral 270 ml Emesis 500 ml # Voids 1 Labs Labs Laboratory Tests Test 09/22/18 04:30 Sodium Level 132 mmol/L (136-145) Potassium Level 3.9 mmol/L (3.5-5.1) Chloride Level 96 mmol/L (98-107) Carbon Dioxide Level 28 mmol/L (21-32) Anion Gap 8 (6-14) Blood Urea Nitrogen 28 mg/dL (8-26) Creatinine 6.1 mg/dL (0.7-1.3) Estimated GFR (Cockcroft-Gault) 10.9 Glucose Level 106 mg/dL (70-99) Calcium Level 8.5 mg/dL (8.5-10.1) Phosphorus Level 3.8 mg/dL (2.6-4.7) Creatine Kinase 1440 U/L (39-308) Albumin 2.3 g/dL (3.4-5.0) Micro Micro Microbiology 09/12/18 Blood Culture - Final, Complete NO GROWTH AFTER 5 DAYS 09/12/18 CSF Gram Stain - Final, Complete 09/11/18 Urine Culture - Final, Complete 09/11/18 Urine Culture Result 1 ([place]) - Final, Complete Review of Systems Constitutional: yes: weakness, alert, oriented Ears/Nose/Throat: Yes: no symptom reported Eyes: Yes: no symptom reported Pulmonary: Yes no symptom reported Cardiovascular: Yes no symptom reported Gastrointestional: Yes: no symptom reported Genitourinary: Yes: no symptom reported Skin: Yes no symptom reported Psychiatric/Neurological: Yes: no symptom reported Endocrine: Yes: no symptom reported Physical Exam Skin: warm Respiratory: decreased breath sounds Heart: S1S2, RRR Abdomen: soft, bowel sounds present Genitourinary: bladder flat Extremities: pulses present Neurology: alert, oriented Assessment Assessment IMP CARO DUE RHABDO-NO RECOVERY YET-ANURIC RHABDOMYOLYSIS-CPK OF OVER 100,000 AT [place] URINARY RETENTION PLAN START ARANESP WILL NEED TO HAVE SW SET UP OP HD HD MWF LISA MCGOVERN MD Sep 22, 2018 11:54
[2018-09-22 15:00] VITALS: BP 144/83
--- NOTE | 2018-09-22 17:09 | PDOC ---
PROGRESS NOTES Assessment Assessment Generalized weakness related to defuse epidural lipomatosis likely. Rhabdomyolysis. Methamphetamine positive. Electrolytes imbalances. AKD. Elevated hepatic enzymes. No evidence of MS this time. No evidence of T-spinal cord pathological findings this time. Defuse dorsal epidural lipomatosis. RECOMMENDATIONS/PLAN: Treat medical diseases. Repeated T-spine MRI on 09/20/18 showed no abnormal findings of T-cord this time. Consulted NS on 09/20/18 for diffuse epidural lipomatosis. Consulted Urology for testicle edema. OT/PT. CSF OCB zero. Repeat T-spine MRI on 09/19/18: No abnormal findings of T-cord except lipomatosis. Past Medical History GI: GERD Psych: Anxiety, Addictions, Depression Past Surgical History No pertinent history Family History No pertinent hx Social History Unemployed, uses methamphetamine, smokes occasionally, rare alcohol. Was said out of incarceration on 09/07/18. ALLERGY: NKDA MEDICATIONS: Refer to MAR REVIEW OF SYSTEMS: Refer to PMH and PSH. PHYSICAL EXAMINATION: General appearance in no acute distress. HEENT: Normocephalic and nontraumatic. Eyes, nose, ears, and throat are unremarkable. Neck is supple. No lymphadenopathy. No Crepitus. Cardiovascular: S1, S2, regular rate and rhythm. Pulmonary: Clear to auscultation bilaterally. Abdomen: Bowel sounds are positive. Extremities: No rash, lesions, or edema. No restriction of range of motion NEUROLOGICAL EXAMINATION: Awake. Oriented to time, place and person. PERRL. EOMI. CN: no focal findings. Muscle tone: within normal. Muscle strength: 5 DTR: 2 Plantar reflex: Flexor response bilaterally Gait: Able to walk with a walker. Sensory exam: no acute abnormal findings. No cerebellar signs elicited. F-T-N test fine. Objective Objective Vital Signs Date Time Temp Pulse Resp B/P (MAP) Pulse Ox O2 Delivery O2 Flow Rate FiO2 09/22/18 15:56 95 Room Air 09/22/18 15:00 98.4 88 18 144/83 (103) 98.4 09/22/18 14:53 90.0 Intake and Output 09/22/18 06:59 Intake Total 270 ml Output Total 500 ml Balance -230 ml Intake Oral 270 ml Emesis 500 ml # Voids 1 Vitals Signs Vitals VS - Last 72 Hours, by Label Date Time Temp Pulse Resp B/P (MAP) Pulse Ox O2 Delivery O2 Flow Rate FiO2 09/22/18 15:56 95 Room Air 09/22/18 15:00 98.4 88 18 144/83 (103) 94 Room Air 98.4 09/22/18 14:53 94 Room Air 90.0 09/22/18 14:23 94 Room Air 09/22/18 13:27 94 Room Air 09/22/18 11:19 Room Air 09/22/18 11:00 98.4 90 18 150/86 (107) 94 Room Air 98.4 09/22/18 08:00 94 142/82 09/22/18 08:00 Room Air 09/22/18 08:00 Room Air 09/22/18 07:00 98.4 94 18 142/82 (102) 94 Room Air 98.4 09/22/18 04:42 Room Air 09/22/18 03:00 99.0 91 18 114/70 (85) 92 99.0 09/22/18 02:40 Room Air 09/21/18 23:00 99.8 110 20 128/69 (88) 91 99.8 09/21/18 22:15 Room Air 09/21/18 20:31 93 Room Air 90.0 09/21/18 20:30 106 133/88 09/21/18 20:00 Room Air 09/21/18 20:00 99.3 106 20 133/88 (103) 93 99.3 09/21/18 15:04 Room Air 09/21/18 15:00 98.2 94 18 147/71 (96) 94 Room Air 98.2 09/21/18 12:55 81 161/79 (106) 09/21/18 11:04 18 Room Air 09/21/18 11:00 98.2 86 18 140/67 (91) 95 98.2 09/21/18 09:27 88 147/77 09/21/18 08:00 Room Air 09/21/18 07:11 18 90.0 09/21/18 07:00 98.2 88 18 147/77 (100) 100 98.2 Laboratory Laboratory Laboratory Tests Test 09/22/18 04:30 Sodium Level 132 mmol/L (136-145) Potassium Level 3.9 mmol/L (3.5-5.1) Chloride Level 96 mmol/L (98-107) Carbon Dioxide Level 28 mmol/L (21-32) Anion Gap 8 (6-14) Blood Urea Nitrogen 28 mg/dL (8-26) Creatinine 6.1 mg/dL (0.7-1.3) Estimated GFR (Cockcroft-Gault) 10.9 Glucose Level 106 mg/dL (70-99) Calcium Level 8.5 mg/dL (8.5-10.1) Phosphorus Level 3.8 mg/dL (2.6-4.7) Creatine Kinase 1440 U/L (39-308) Albumin 2.3 g/dL (3.4-5.0) Microbiology 09/12/18 Blood Culture - Final, Complete NO GROWTH AFTER 5 DAYS 09/12/18 CSF Gram Stain - Final, Complete 09/11/18 Urine Culture - Final, Complete 09/11/18 Urine Culture Result 1 ([place]) - Final, Complete Medication Medications Current Medications Ceftriaxone Sodium (Rocephin) 1 gm Q24H IVP Last administered on 09/22/18at 11:19; Start 09/22/18 at 10:00 Darbepoetin Jacob ([facility]ANESP for DIALYSIS PTS) 60 mcg WEEKLYHS SQ ; Start 09/22/18 at 21:00 Comment Review of Relevant I have reviewed the following items ashlie (where applicable) has been applied. KIM ELDER MD Sep 22, 2018 17:09
[2018-09-22 19:00] VITALS: BP 138/87
[2018-09-22] MEDS ORDERED: DARBEPOETIN ALFA 60 MCG/0.3 ML DISP.SYRIN. SQ SCH (21:00)
[2018-09-22] MEDS: PATCH REMOVAL. MC SCH (21:00)
[2018-09-22] MEDS: GABAPENTIN 300 MG CAPSULE. PO SCH (21:16)
[2018-09-22 23:04] VITALS: BP 131/77
[2018-09-23] MEDS: oxyCODONE IR 5 MG TABLET PO PRN ×4 (02:28→18:22)
[2018-09-23 02:48] VITALS: BP 124/59
[2018-09-23] MEDS: MORPHINE SULFATE 4 MG/ML VIAL. IV PRN ×5 (04:22→21:51)
[2018-09-23 06:37] VITALS: BP 128/83
[2018-09-23 07:01] LABS: ALBUMIN 2.3 g/dL (3.4-5.0); CALCIUM 8.3 mg/dL (8.5-10.1); CREATININE 7.9 mg/dL (0.7-1.3); GFR 8.1; PHOSPHORUS 4.8 mg/dL (2.6-4.7); POTASSIUM 4.3 mmol/L (3.5-5.1)
[2018-09-23] MEDS: LACTOBACILLUS RHAMNOSUS GG 1 CAPSULE. PO SCH ×2 (07:36→21:51)
[2018-09-23] MEDS: LIDOCAINE (700MG/PATCH) PATCH. TD SCH (07:36)
[2018-09-23] MEDS: PANTOPRAZOLE 40 MG TABLET.DR. PO SCH (07:36)
[2018-09-23] MEDS: POLYETHYLENE GLYCOL 3350 17 GM PACKET. PO SCH (07:37)
[2018-09-23] MEDS: LABETALOL HCL 100 MG TABLET. PO SCH ×2 (07:37→21:54)
[2018-09-23] MEDS: ONDANSETRON PF 4 MG/2 ML VIAL. IV PRN (08:51)
[2018-09-23] MEDS: cefTRIAXone IV Push 1 GM VIAL. IVP SCH (08:52)
[2018-09-23 11:00] VITALS: BP 120/70
--- NOTE | 2018-09-23 11:04 | PDOC ---
Renal-Progress Notes Subjective Notes Notes NO NEW COMPLAINTS Vitals Vitals Vital Signs Date Time Temp Pulse Resp B/P (MAP) Pulse Ox O2 Delivery O2 Flow Rate FiO2 09/23/18 09:32 Room Air 09/23/18 07:37 85 128/83 09/23/18 06:37 98.4 17 94 98.4 09/22/18 18:44 90.0 Weight Weight [ ] I.O. Intake and Output Intake and Output 09/23/18 06:59 Intake Total 800 ml Balance 800 ml Intake Oral 800 ml # Voids 3 # Bowel Movements 1 Labs Labs Laboratory Tests Test 09/23/18 06:10 Sodium Level 128 mmol/L (136-145) Potassium Level 4.3 mmol/L (3.5-5.1) Chloride Level 92 mmol/L (98-107) Carbon Dioxide Level 27 mmol/L (21-32) Anion Gap 9 (6-14) Blood Urea Nitrogen 39 mg/dL (8-26) Creatinine 7.9 mg/dL (0.7-1.3) Estimated GFR (Cockcroft-Gault) 8.1 Glucose Level 102 mg/dL (70-99) Calcium Level 8.3 mg/dL (8.5-10.1) Phosphorus Level 4.8 mg/dL (2.6-4.7) Albumin 2.3 g/dL (3.4-5.0) Micro Micro Microbiology 09/12/18 Blood Culture - Final, Complete NO GROWTH AFTER 5 DAYS 09/12/18 CSF Gram Stain - Final, Complete 09/11/18 Urine Culture - Final, Complete 09/11/18 Urine Culture Result 1 ([place]) - Final, Complete Review of Systems Constitutional: yes: weakness, alert, oriented Ears/Nose/Throat: Yes: no symptom reported Eyes: Yes: no symptom reported Pulmonary: Yes no symptom reported Cardiovascular: Yes no symptom reported Gastrointestional: Yes: no symptom reported Genitourinary: Yes: no symptom reported Skin: Yes no symptom reported Psychiatric/Neurological: Yes: no symptom reported Endocrine: Yes: no symptom reported Physical Exam Skin: warm Respiratory: decreased breath sounds Heart: S1S2, RRR Abdomen: soft, bowel sounds present Genitourinary: bladder flat Extremities: pulses present Neurology: alert, oriented Assessment Assessment IMP CARO DUE RHABDO-NO RECOVERY YET-ANURIC RHABDOMYOLYSIS-CPK OF OVER 100,000 AT [facility]-NOW 1440 URINARY RETENTION PLAN ARANESP WILL NEED TO HAVE SW SET UP OP HD HD MWF-TOMORROW HAS SOME CHANCE OF RECOVERY BUT WILL PROB TAKE WEEKS IF NOT MONTHS LISA MCGOVERN MD Sep 23, 2018 11:04
--- NOTE | 2018-09-23 11:20 | PDOC ---
PROGRESS NOTES Chief Complaint Chief Complaint New ESRD will be needing outpatient HD set up Self-pay? Hypotension resolved Anasarca Hepatorenal syndrome, status post Hydrocele, good scrotal fow Methamphetamine use Metabolic encephalopathy resolved Alcohol drinker Status post sepsis with hypotension Oliguric renal failure History of Present Illness History of Present Illness continues to have anasarca I think they get fluid off during dialysis Scrotum large but not tight - good flow on sono, hydrocoele only Blood pressure better since I started labetalol 200 twice a day, 3 days ago MS now normal He claims he did 3 rounds in the hallway yesterday Plan: social work on board, self-pay versus Medicaid?? Will need dialysis as outpatient as I have verified with Dr. Arnaldo Dyeeptate for scrotal cellulitis - will be able to shift to po on dc or even today continues to be oliguric Vitals Vitals Vital Signs Date Time Temp Pulse Resp B/P (MAP) Pulse Ox O2 Delivery O2 Flow Rate FiO2 09/23/18 11:00 98.4 84 16 120/70 (87) 95 Room Air 98.4 09/22/18 18:44 90.0 Physical Exam Physical Exam GENERAL: Standing with PT then sat down, NAD, coop EENT: Pupils equal, oral cavity clear NECK: Supple. LUNGS: Clear bilaterally. No wheezing. HEART: S1, S2, regular, tachy 108s ABDOMEN: Soft, nontender, BS present : Fernandez EXTREMITIES: Generalized trace edema, no cyanosis. Right index with min swelling. Lesions are stable - mild maceration CENTRAL NERVOUS SYSTEM: Alert, answering appropriately RIJ/HDC without signs of complications PIV General: Oriented X3, Cooperative, mild distress Heart: Regular rate, Normal S1, No murmurs Lungs: Clear Abdomen: Normal bowel sounds, Soft, No hepatosplenomegaly, Other (obese, no fluid wave) Extremities: No clubbing, No cyanosis, No edema, Other (burn to right index finger APPEARS OLD associated cellulitis) Labs LABS Laboratory Tests Test 09/23/18 06:10 Sodium Level 128 mmol/L (136-145) Potassium Level 4.3 mmol/L (3.5-5.1) Chloride Level 92 mmol/L (98-107) Carbon Dioxide Level 27 mmol/L (21-32) Anion Gap 9 (6-14) Blood Urea Nitrogen 39 mg/dL (8-26) Creatinine 7.9 mg/dL (0.7-1.3) Estimated GFR (Cockcroft-Gault) 8.1 Glucose Level 102 mg/dL (70-99) Calcium Level 8.3 mg/dL (8.5-10.1) Phosphorus Level 4.8 mg/dL (2.6-4.7) Albumin 2.3 g/dL (3.4-5.0) Review of Systems Review of Systems Anasarca, hydrocele, the rest of ROS 14 point negative Assessment and Plan Assessmemt and Plan Problems Medical Problems: (1) Elevated troponin Status: Acute (2) Hepatorenal syndrome Status: Acute (3) Hyperkalemia Status: Acute (4) Hyponatremia Status: Acute (5) Methamphetamine abuse Status: Acute (6) Neurological complaint Status: Acute (7) Rhabdomyolysis Status: Acute (8) Urinary retention Status: Acute (9) Urinary tract infection Status: Acute Comment Review of Relevant I have reviewed the following items ashlie (where applicable) has been applied. Labs Laboratory Tests Test 09/22/18 04:30 09/23/18 06:10 Sodium Level 132 mmol/L (136-145) 128 mmol/L (136-145) Potassium Level 3.9 mmol/L (3.5-5.1) 4.3 mmol/L (3.5-5.1) Chloride Level 96 mmol/L (98-107) 92 mmol/L (98-107) Carbon Dioxide Level 28 mmol/L (21-32) 27 mmol/L (21-32) Anion Gap 8 (6-14) 9 (6-14) Blood Urea Nitrogen 28 mg/dL (8-26) 39 mg/dL (8-26) Creatinine 6.1 mg/dL (0.7-1.3) 7.9 mg/dL (0.7-1.3) Estimated GFR (Cockcroft-Gault) 10.9 8.1 Glucose Level 106 mg/dL (70-99) 102 mg/dL (70-99) Calcium Level 8.5 mg/dL (8.5-10.1) 8.3 mg/dL (8.5-10.1) Phosphorus Level 3.8 mg/dL (2.6-4.7) 4.8 mg/dL (2.6-4.7) Creatine Kinase 1440 U/L (39-308) Albumin 2.3 g/dL (3.4-5.0) 2.3 g/dL (3.4-5.0) Laboratory Tests Test 09/23/18 06:10 Sodium Level 128 mmol/L (136-145) Potassium Level 4.3 mmol/L (3.5-5.1) Chloride Level 92 mmol/L (98-107) Carbon Dioxide Level 27 mmol/L (21-32) Anion Gap 9 (6-14) Blood Urea Nitrogen 39 mg/dL (8-26) Creatinine 7.9 mg/dL (0.7-1.3) Estimated GFR (Cockcroft-Gault) 8.1 Glucose Level 102 mg/dL (70-99) Calcium Level 8.3 mg/dL (8.5-10.1) Phosphorus Level 4.8 mg/dL (2.6-4.7) Albumin 2.3 g/dL (3.4-5.0) Microbiology 09/12/18 Blood Culture - Final, Complete NO GROWTH AFTER 5 DAYS 09/12/18 CSF Gram Stain - Final, Complete 09/11/18 Urine Culture - Final, Complete 09/11/18 Urine Culture Result 1 ([place]) - Final, Complete Medications Current Medications Morphine Sulfate (Morphine Sulfate) 4 mg 1X ONCE IV Last administered on 09/11/18at 21:20; Start 09/11/18 at 21:30; Stop 09/11/18 at 21:31; Status DC Sodium Chloride 1,000 ml @ 1,000 mls/hr 1X ONCE IV Last administered on 09/11/18at 22:30; Start 09/11/18 at 22:30; Stop 09/11/18 at 23:29; Status DC Calcium Gluconate (Calcium Gluconate) 1,000 mg 1X ONCE IVP Last administered on 09/11/18at 22:43; Start 09/11/18 at 23:00; Stop 09/11/18 at 23:01; Status DC Insulin Human Regular (HumuLIN R VIAL) 10 unit 1X ONCE IV Last administered on 09/11/18at 23:51; Start 09/11/18 at 23:00; Stop 09/11/18 at 23:01; Status DC Dextrose (Dextrose 50%-Water Syringe) 25 gm 1X ONCE IV Last administered on 09/11/18at 22:42; Start 09/11/18 at 23:00; Stop 09/11/18 at 23:01; Status DC Sodium Bicarbonate (Sodium Bicarb Adult 8.4% Syr) 50 meq 1X ONCE IV Last administered on 09/11/18at 23:49; Start 09/11/18 at 23:00; Stop 09/11/18 at 23:01; Status DC Sodium Chloride 1,000 ml @ 1,000 mls/hr 1X ONCE IV Last administered on 09/11/18at 23:50; Start 09/11/18 at 23:00; Stop 09/11/18 at 23:59; Status DC Albuterol Sulfate (Ventolin Neb Soln) 10 mg 1X ONCE CONT NEB Last administered on 09/12/18at 00:30; Start 09/11/18 at 23:00; Stop 09/11/18 at 23:01; Status DC Ceftriaxone Sodium (Rocephin) 1 gm 1X ONCE IVP Last administered on 09/11/18at 22:43; Start 09/11/18 at 23:00; Stop 09/11/18 at 23:01; Status DC Sodium Chloride 1,000 ml @ 1,000 mls/hr 1X ONCE IV Last administered on 09/12/18at 01:00; Start 09/12/18 at 01:00; Stop 09/12/18 at 01:59; Status DC Lorazepam (Ativan Inj) 0.5 mg PRN Q6HRS PRN IV ANXIETY / AGITATION Last administered on 09/12/18at 11:00; Start 09/12/18 at 01:15; Stop 09/13/18 at 08: 48; Status DC Ondansetron HCl (Zofran) 4 mg PRN Q6HRS PRN IV NAUSEA/VOMITING 1ST CHOICE; Start 09/12/18 at 01:15; Stop 09/12/18 at 01:22; Status DC Sodium Chloride (Normal Saline Flush) 3 ml QSHIFT PRN IV AFTER MEDS AND BLOOD DRAWS; Start 09/12/18 at 01:15 Sodium Chloride 1,000 ml @ 175 mls/hr Q5H43M IV ; Start 09/12/18 at 01:08; Stop 09/12/18 at 01:23; Status DC Ondansetron HCl (Zofran) 4 mg PRN Q8HRS PRN IV NAUSEA/VOMITING 1ST CHOICE; Start 09/12/18 at 01:15; Stop 09/13/18 at 01:14; Status DC Sodium Chloride 1,000 ml @ 150 mls/hr Q6H40M IV ; Start 09/12/18 at 01:30; Stop 09/12/18 at 18:49; Status DC Morphine Sulfate (Morphine Sulfate) 4 mg PRN Q4HRS PRN IV SEVERE PAIN Last administered on 09/23/18at 08:52; Start 09/12/18 at 09:00 Sodium Bicarbonate (Sodium Bicarb Adult 8.4% Syr) 100 meq 1X ONCE IV Last administered on 09/12/18at 10:02; Start 09/12/18 at 10:00; Stop 09/12/18 at 10:01; Status DC Sodium Chloride 1,000 ml @ 1,000 mls/hr 1X ONCE IV Last administered on 09/12/18at 09:56; Start 09/12/18 at 10:00; Stop 09/12/18 at 10:59; Status DC Lidocaine/Sodium Bicarbonate (Buffered Lidocaine 1%) 3 ml [employer]-MED ONCE .ROUTE ; Start 09/12/18 at 11:07; Stop 09/12/18 at 11:08; Status DC Calcium Gluconate (Calcium Gluconate) 2,000 mg 1X ONCE IVP Last administered on 09/12/18at 13:38; Start 09/12/18 at 12:00; Stop 09/12/18 at 12:01; Status DC Ceftriaxone Sodium (Rocephin) 1 gm Q24H IVP Last administered on 09/12/18at 12:49; Start 09/12/18 at 13:00; Stop 09/13/18 at 07:45; Status DC Silver Sulfadiazine (Silvadene) 1 elinor BID TP Last administered on 09/13/18at 10:06; Start 09/12/18 at 13:00; Stop 09/13/18 at 15:04; Status DC Sodium Chloride 1,000 ml @ 1,000 mls/hr 1X ONCE IV Last administered on 09/12/18at 12:47; Start 09/12/18 at 12:45; Stop 09/12/18 at 13:44; Status DC Pantoprazole Sodium (Protonix) 40 mg DAILYAC PO ; Start 09/12/18 at 13:30; Stop 09/12/18 at 19:22; Status DC Polyethylene Glycol (miraLAX PACKET) 17 gm DAILY PO Last administered on 09/23/18at 07:37; Start 09/12/18 at 13:30 Lidocaine/Sodium Bicarbonate (Buffered Lidocaine 1%) 3 ml STK-MED ONCE .ROUTE ; Start 09/12/18 at 13:48; Stop 09/12/18 at 13:49; Status DC Haloperidol Lactate (Haldol Inj) 1 mg PRN Q8HRS PRN IVP AGITATION Last administered on 09/14/18at 07:56; Start 09/12/18 at 14:00 Lorazepam (Ativan Inj) 2 mg PRN Q2HRS PRN IV ANXIETY. Last administered on 09/16/18at 21:22; Start 09/12/18 at 14:00; Stop 09/17/18 at 10:17; Status DC Lidocaine/Sodium Bicarbonate (Buffered Lidocaine 1%) 6 ml 1X ONCE INJ ; Start 09/12/18 at 14:15; Stop 09/12/18 at 14:16; Status DC Dexmedetomidine HCl 200 mcg/ Sodium Chloride 50 ml @ 0 mls/hr CONT PRN IV PER PROTOCOL Last administered on 09/15/18at 10:28; Start 09/12/18 at 14:15; Stop 09/17/18 at 10:17; Status DC Sodium Chloride 500 ml @ 500 mls/hr 1X PRN PRN IV SEE COMMENTS; Start 09/12/18 at 14:15; Stop 09/20/18 at 14:54; Status DC Atropine Sulfate (ATROPINE 0.5mg SYRINGE) 0.5 mg PRN Q5MIN PRN IV SEE COMMENTS; Start 09/12/18 at 14:15 Sodium Chloride 1,000 ml @ 1,000 mls/hr Q1H PRN IV hypotension; Start 09/12/18 at 15:08; Stop 09/12/18 at 21:07; Status DC Diphenhydramine HCl (Benadryl) 25 mg 1X PRN PRN IV ITCHING; Start 09/12/18 at 15:15; Stop 09/13/18 at 11:19; Status DC Diphenhydramine HCl (Benadryl) 25 mg 1X PRN PRN IV ITCHING; Start 09/12/18 at 15:15; Stop 09/13/18 at 11:19; Status DC Sodium Chloride 1,000 ml @ 400 mls/hr Q2H30M PRN IV PATENCY; Start 09/12/18 at 15:08; Stop 09/13/18 at 03:07; Status DC Info (PHARMACY MONITORING -- do not chart) 1 each PRN DAILY PRN MC SEE COMMENTS; Start 09/12/18 at 15:15; Stop 09/13/18 at 11:18; Status DC Pantoprazole Sodium (PROTONIX VIAL for IV PUSH) 40 mg DAILYAC IVP Last administered on 09/17/18at 10:04; Start 09/13/18 at 07:30; Stop 09/17/18 at 11:54; Status DC Linezolid (Zyvox) 600 mg BID PO Last administered on 09/19/18at 20:55; Start 09/13/18 at 09:00; Stop 09/19/18 at 22:00; Status DC Ceftriaxone Sodium (Rocephin) 2 gm Q24H IVP Last administered on 09/16/18at 12:14; Start 09/13/18 at 13:00; Stop 09/17/18 at 10:06; Status DC Calcium Gluconate 2000 mg/Dextrose 120 ml @ 220 mls/hr 1X ONCE IV Last administered on 09/13/18at 10:05; Start 09/13/18 at 10:00; Stop 09/13/18 at 10:32; Status DC Sodium Chloride 1,000 ml @ 1,000 mls/hr Q1H PRN IV hypotension; Start 09/13/18 at 11:06; Stop 09/13/18 at 17:05; Status DC Diphenhydramine HCl (Benadryl) 25 mg 1X PRN PRN IV ITCHING; Start 09/13/18 at 11:15; Stop 09/14/18 at 11:14; Status DC Diphenhydramine HCl (Benadryl) 25 mg 1X PRN PRN IV ITCHING; Start 09/13/18 at 11:15; Stop 09/14/18 at 11:14; Status DC Sodium Chloride 1,000 ml @ 400 mls/hr Q2H30M PRN IV PATENCY; Start 09/13/18 at 11:06; Stop 09/13/18 at 23:05; Status DC Info (PHARMACY MONITORING -- do not chart) 1 each PRN DAILY PRN MC SEE COMMENTS; Start 09/13/18 at 11:15; Status Cancel Potassium Chloride 10 meq/ Calcium Chloride 12.5 meq/ Bicarbonate Dialysis Soln w/ out KCl 5,013.9286 ml @ 1,000 mls/hr Q5H1M IV ; Start 09/14/18 at 13:00; Status Cancel Potassium Chloride 20 meq/ Calcium Chloride 12.5 meq/ Bicarbonate Dialysis Soln w/ out KCl 5,018.9286 ml @ 1,500 mls/hr Q3H21M IV ; Start 09/14/18 at 13:00; Stop 09/14/18 at 13:00; Status DC Heparin Sodium (Porcine) (Heparin Sodium) 4,000 unit 1X ONCE IV Last administered on 09/14/18at 19:54; Start 09/14/18 at 12:00; Stop 09/14/18 at 12:11; Status DC Heparin Sodium/ Dextrose 500 ml @ 0 mls/hr CONT PRN IV SEE I/O RECORD Last administered on 09/15/18at 15:05; Start 09/14/18 at 12:00; Stop 09/16/18 at 08:03; Status DC Heparin Sodium (Porcine) (Heparin Sodium) 2,500 unit PRN Q6HRS PRN IV FOR UFH LEVEL LESS THAN 0.2; Start 09/14/18 at 12:00; Stop 09/17/18 at 13:16; Status DC Potassium Chloride 10 meq/ Calcium Chloride 12.5 meq/ Bicarbonate Dialysis Soln w/ out KCl 5,013.9286 ml @ 1,000 mls/hr Q5H1M IV ; Start 09/14/18 at 13:00; Stop 09/14/18 at 13:00; Status DC Potassium Chloride 10 meq/ Bicarbonate Dialysis Soln w/ out KCl 5,005 ml @ 1,000 mls/hr Q5H1M IV ; Start 09/14/18 at 13:00; Stop 09/14/18 at 13:00; Status DC Potassium Chloride 20 meq/ Bicarbonate Dialysis Soln w/ out KCl 5,010 ml @ 1,50 0 mls/hr Q3H21M IV ; Start 09/14/18 at 13:00; Stop 09/14/18 at 13:00; Status DC Potassium Chloride 10 meq/ Bicarbonate Dialysis Soln w/ out KCl 5,005 ml @ 1,500 mls/hr Q3H21M IV ; Start 09/14/18 at 13:00; Stop 09/14/18 at 13:00; Status DC Potassium Chloride 20 meq/ Bicarbonate Dialysis Soln w/ out KCl 5,010 ml @ 1,000 mls/hr Q5H1M IV Last administered on 09/15/18at 20:43; Start 09/14/18 at 13:00; Stop 09/16/18 at 08:03; Status DC Potassium Chloride 20 meq/ Bicarbonate Dialysis Soln w/ out KCl 5,010 ml @ 1,500 mls/hr Q3H21M IV ; Start 09/14/18 at 12:45; Stop 09/14/18 at 12:45; Status DC Potassium Chloride 40 meq/ Bicarbonate Dialysis Soln w/ out KCl 5,020 ml @ 1,500 mls/hr Q3H21M IV ; Start 09/14/18 at 13:00; Stop 09/14/18 at 13:10; Status DC Potassium Chloride 60 meq/ Bicarbonate Dialysis Soln w/ out KCl 5,030 ml @ 1,500 mls/hr Q3H22M IV ; Start 09/14/18 at 13:00; Stop 09/14/18 at 13:07; Status DC Potassium Chloride 30 meq/ Bicarbonate Dialysis Soln w/ out KCl 5,015 ml @ 1,500 mls/hr Q3H21M IV ; Start 09/14/18 at 13:15; Stop 09/14/18 at 18:00; Status DC Potassium Chloride 20 meq/ Bicarbonate Dialysis Soln w/ out KCl 5,010 ml @ 1,500 mls/hr Q3H21M IV Last administered on 09/14/18at 21:06; Start 09/14/18 at 13:10; Stop 09/14/18 at 18:00; Status DC Potassium Chloride 30 meq/ Bicarbonate Dialysis Soln w/ out KCl 5,015 ml @ 1,500 mls/hr Q3H21M IV ; Start 09/14/18 at 18:00; Stop 09/14/18 at 19:10; Status DC Potassium Chloride 20 meq/ Bicarbonate Dialysis Soln w/ out KCl 5,010 ml @ 1,500 mls/hr Q3H21M IV Last administered on 09/16/18 00:15; Start 09/14/18 at 18:01; Stop 09/16/18 at 08:03; Status DC Potassium Chloride 20 meq/ Bicarbonate Dialysis Soln w/ out KCl 5,010 ml @ 1,500 mls/hr Q3H21M IV Last administered on 09/16/18at 00:18; Start 09/14/18 at 20:00; Stop 09/16/18 at 08:03; Status DC Lactobacillus Rhamnosus (Culturelle) 1 cap BID PO Last administered on 09/23/18at 07:36; Start 09/16/18 at 21:00 Oxycodone HCl (Roxicodone) 5 mg PRN Q4HRS PRN PO MODERATE TO SEVERE PAIN Last administered on 09/23/18at 06:29; Start 09/16/18 at 11:45 Lorazepam (Ativan Inj) 1 mg PRN Q8HRS PRN IV ANXIETY.; Start 09/16/18 at 16:00 Gabapentin (Neurontin) 300 mg QHS PO Last administered on 09/22/18at 21:16; Start 09/16/18 at 21:00 Labetalol HCl (Normodyne Iv Push) 10 mg PRN Q4HRS PRN IVP HYPERTENSION Last administered on 09/17/18at 03:33; Start 09/16/18 at 23:30; Stop 09/17/18 at 09:26; Status DC Labetalol HCl (Normodyne Iv Push) 20 mg PRN Q4HRS PRN IVP HYPERTENSION; Start 09/17/18 at 09:30; Stop 09/18/18 at 19:10; Status DC Ondansetron HCl (Zofran) 4 mg PRN Q6HRS PRN IV NAUSEA/VOMITING Last administered on 09/23/18at 08:51; Start 09/17/18 at 09:30 Acetaminophen (Tylenol) 500 mg PRN Q6HRS PRN PO MILD PAIN / TEMP; Start 09/17/18 at 09:30 Lidocaine (Lidoderm) 1 patch DAILY TD Last administered on 09/23/18at 07:36; Start 09/17/18 at 10:00 Miscellaneous (Lidoderm Patch Removal) 1 ea QHS MC Last administered on 7/20/19at 21:00; Start 09/17/18 at 21:00 Sodium Chloride 1,000 ml @ 1,000 mls/hr Q1H PRN IV hypotension; Start 09/17/18 at 11:26; Stop 09/17/18 at 17:25; Status DC Albumin Human 200 ml @ 200 mls/hr 1X PRN PRN IV Hypotension; Start 09/17/18 at 11:30; Stop 09/17/18 at 17:29; Status DC Sodium Chloride (Normal Saline Flush) 10 ml 1X PRN PRN IV AP catheter pack; Start 09/17/18 at 11:30; Stop 09/18/18 at 11:29; Status DC Sodium Chloride (Normal Saline Flush) 10 ml 1X PRN PRN IV P[employer] SOCKET [employer]SEMBLER catheter pack; Start 09/17/18 at 11:30; Stop 09/18/18 at 11:29; Status DC Sodium Chloride 1,000 ml @ 400 mls/hr Q2H30M PRN IV PATENCY; Start 09/17/18 at 11:26; Stop 09/17/18 at 23:25; Status DC Info (PHARMACY MONITORING -- do not chart) 1 each PRN DAILY PRN MC SEE COMMENTS; Start 09/17/18 at 11:30; Status UNV Info (PHARMACY MONITORING -- do not chart) 1 each PRN DAILY PRN MC SEE COM MENTS; Start 09/17/18 at 11:30; Status Cancel Pantoprazole Sodium (Protonix) 40 mg DAILYAC PO Last administered on 09/23/18at 07:36; Start 09/18/18 at 07:30 Labetalol HCl (Trandate) 100 mg BID PO Last administered on 09/18/18at 19:40; Start 09/18/18 at 09:00; Stop 09/19/18 at 09:13; Status DC Lorazepam (Ativan) 0.5 mg PRN Q8HRS PRN PO ANXIETY / AGITATION; Start 09/18/18 at 09:00 Haloperidol (Haldol) 0.5 mg PRN QID PRN PO AGITATION, 2ND CHOICE; Start 09/18/18 at 09:00; Stop 09/18/18 at 09:03; Status DC Haloperidol Lactate (HALDOL 2mg ORAL CONC) 0.5 mg PRN QID PRN PO AGITATION, 2ND CHOICE; Start 09/18/18 at 09:03 Metoprolol Tartrate (Lopressor Vial) 10 mg PRN Q6HRS PRN IVP HYPERTENSION; Start 09/18/18 at 19:15 Labetalol HCl (Trandate) 200 mg BID PO Last administered on 09/23/18at 07:37; Start 09/19/18 at 10:00 Sodium Chloride 1,000 ml @ 1,000 mls/hr Q1H PRN IV hypotension; Start 09/19/18 at 10:18; Stop 09/19/18 at 16:17; Status DC Diphenhydramine HCl (Benadryl) 25 mg 1X PRN PRN IV ITCHING; Start 09/19/18 at 10:30; Stop 09/20/18 at 10:29; Status DC Diphenhydramine HCl (Benadryl) 25 mg 1X PRN PRN IV ITCHING; Start 09/19/18 at 10:30; Stop 09/20/18 at 10:29; Status DC Sodium Chloride 1,000 ml @ 400 mls/hr Q2H30M PRN IV PATENCY; Start 09/19/18 at 10:18; Stop 09/19/18 at 22:17; Status DC Info (PHARMACY MONITORING -- do not chart) 1 each PRN DAILY PRN MC SEE COMMENTS; Start 09/19/18 at 10:30; Status UNV Midazolam HCl (Versed) 2 mg STK-MED ONCE .ROUTE ; Start 09/20/18 at 08:12; Stop 09/20/18 at 08:13; Status DC Fentanyl Citrate (Fentanyl 2ml Vial) 100 mcg STK-MED ONCE .ROUTE ; Start 09/20/18 at 08:12; Stop 09/20/18 at 08:13; Status DC Lidocaine/ Epinephrine (LIDOCAINE 1%-EPI 1:100,000 Multi-Dose) 20 ml STK-MED ONCE .ROUTE ; Start 09/20/18 at 08:13; Stop 09/20/18 at 08:14; Status DC Cefazolin Sodium 50 ml @ As Directed STK-MED ONCE IV ; Start 09/20/18 at 08:18; Stop 09/20/18 at 08:19; Status DC Cefazolin Sodium 50 ml @ As Directed STK-MED ONCE IV ; Start 09/20/18 at 08:18; Stop 09/20/18 at 08:19; Status DC Midazolam HCl (Versed) 2 mg STK-MED ONCE .ROUTE ; Start 09/20/18 at 08:39; Stop 09/20/18 at 08:40; Status DC Midazolam HCl (Versed) 2 mg 1X ONCE IV Last administered on 09/20/18at 08:45; Start 09/20/18 at 08:45; Stop 09/20/18 at 08:52; Status DC Fentanyl Citrate (Fentanyl 2ml Vial) 100 mcg 1X ONCE IV Last administered on 09/20/18at 08:45; Start 09/20/18 at 08:45; Stop 09/20/18 at 08:52; Status DC Lidocaine/ Epinephrine (LIDOCAINE 1%-EPI 1:100,000 Multi-Dose) 20 ml 1X ONCE IJ Last administered on 09/20/18 08:45; Start 09/20/18 at 08:45; Stop 09/20/18 at 08:52; Status DC Cefazolin Sodium 50 ml @ 100 mls/hr 1X ONCE IV Last administered on 09/20/18 08:45; Start 09/20/18 at 08:45; Stop 09/20/18 at 09:14; Status DC Cefazolin Sodium 50 ml @ 100 mls/hr 1X ONCE IV Last administered on 09/20/18 08:45; Start 09/20/18 at 08:45; Stop 09/20/18 at 09:14; Status DC Furosemide (Lasix) 40 mg 1X ONCE IVP Last administered on 09/20/18 14:44; Start 09/20/18 at 14:30; Stop 09/20/18 at 14:31; Status DC Furosemide (Lasix) 40 mg 1X ONCE IVP Last administered on 09/21/18at 12:49; Start 09/21/18 at 12:30; Stop 09/21/18 at 12:31; Status DC Sodium Chloride 1,000 ml @ 1,000 mls/hr Q1H PRN IV hypotension; Start 09/21/18 at 16:54; Stop 09/21/18 at 22:53; Status DC Sodium Chloride 1,000 ml @ 400 mls/hr Q2H30M PRN IV PATENCY; Start 09/21/18 at 16:54; Stop 09/22/18 at 04:53; Status DC Info (PHARMACY MONITORING -- do not chart) 1 each PRN DAILY PRN MC SEE COMMENTS; Start 09/21/18 at 17:00 Info (PHARMACY MONITORING -- do not chart) 1 each PRN DAILY PRN MC SEE COMMENTS; Start 09/21/18 at 17:00; Status UNV Ceftriaxone Sodium (Rocephin) 1 gm Q24H IVP Last administered on 09/23/18at 08:52; Start 09/22/18 at 10:00 Darbepoetin Jacob (ARANESP for DIALYSIS PTS) 60 mcg WEEKLYHS SQ Last administered on 09/22/18at 21:25; Start 09/22/18 at 21:00 Active Scripts Active Reported Protonix (Pantoprazole Sodium) 20 Mg Tablet.dr 2 Tab PO DAILY Zyprexa (Olanzapine) 20 Mg Tablet 2 Tab PO QHS Buspirone Hcl 30 Mg Tablet 1 Tab PO BID Vitals/I & O Vital Sign - Last 24 Hours 09/22/18 09/22/18 09/22/18 09/22/18 11:19 14:23 14:53 15:00 Temp 98.4 98.4 Pulse 88 Resp 18 B/P (MAP) 144/83 (103) Pulse Ox 94 94 O2 Delivery Room Air Room Air Room Air O2 Flow Rate 90.0 09/22/18 09/22/18 09/22/18 09/22/18 15:56 16:56 18:44 19:00 Temp 99.3 99.3 Pulse 96 Resp 19 B/P (MAP) 138/87 (104) Pulse Ox 95 95 95 96 O2 Delivery Room Air Room Air Room Air O2 Flow Rate 90.0 09/22/18 09/22/18 09/22/18 09/22/18 20:00 21:19 23:04 23:43 Temp 98.4 98.4 Pulse 91 93 Resp 18 16 B/P (MAP) 136/84 131/77 (95) Pulse Ox 94 94 O2 Delivery Room Air Room Air Room Air 09/23/18 09/23/18 09/23/18 09/23/18 00:13 02:48 06:37 07:36 Temp 98.9 98.4 98.9 98.4 Pulse 88 85 Resp 16 16 17 B/P (MAP) 124/59 (80) 128/83 (98) Pulse Ox 94 98 94 O2 Delivery Room Air Room Air Room Air 09/23/18 09/23/18 09/23/18 09/23/18 07:37 08:00 08:52 09:32 Pulse 85 B/P (MAP) 128/83 O2 Delivery Room Air Room Air Room Air 09/23/18 11:00 Temp 98.4 98.4 Pulse 84 Resp 16 B/P (MAP) 120/70 (87) Pulse Ox 95 O2 Delivery Room Air Intake and Output 09/22/18 09/22/18 09/23/18 14:59 22:59 06:59 Intake Total 400 ml 150 ml 250 ml Balance 400 ml 150 ml 250 ml DEEPA QUINTERO MD Sep 23, 2018 11:20
[2018-09-23] MEDS ORDERED: CEPHALEXIN 250 MG CAPSULE. PO SCH (14:00)
[2018-09-23 15:00] VITALS: BP 119/71
--- NOTE | 2018-09-23 17:57 | PDOC ---
PROGRESS NOTES Assessment Assessment Generalized weakness related to defuse epidural lipomatosis likely. Rhabdomyolysis. Methamphetamine positive. Electrolytes imbalances. AKD. Elevated hepatic enzymes. No evidence of MS this time. No evidence of T-spinal cord pathological findings this time. Defuse dorsal epidural lipomatosis. RECOMMENDATIONS/PLAN: Treat medical diseases. Repeated T-spine MRI on 09/20/18 showed no abnormal findings of T-cord this time. Consulted NS on 09/20/18 for diffuse epidural lipomatosis. Consulted Urology for testicle edema. OT/PT. CSF OCB zero. Repeat T-spine MRI on 09/19/18: No abnormal findings of T-cord except lipomatosis. Past Medical History GI: GERD Psych: Anxiety, Addictions, Depression Past Surgical History No pertinent history Family History No pertinent hx Social History Unemployed, uses methamphetamine, smokes occasionally, rare alcohol. Was said out of incarceration on 09/07/18. ALLERGY: NKDA MEDICATIONS: Refer to MAR REVIEW OF SYSTEMS: Refer to PMH and PSH. PHYSICAL EXAMINATION: General appearance in no acute distress. HEENT: Normocephalic and nontraumatic. Eyes, nose, ears, and throat are unremarkable. Neck is supple. No lymphadenopathy. No Crepitus. Cardiovascular: S1, S2, regular rate and rhythm. Pulmonary: Clear to auscultation bilaterally. Abdomen: Bowel sounds are positive. Extremities: No rash, lesions, or edema. No restriction of range of motion NEUROLOGICAL EXAMINATION: Awake. Oriented to time, place and person. PERRL. EOMI. CN: no focal findings. Muscle tone: within normal. Muscle strength: 5 DTR: 2 Plantar reflex: Flexor response bilaterally Gait: Able to walk with a walker. Sensory exam: no acute abnormal findings. No cerebellar signs elicited. F-T-N test fine. Objective Objective Vital Signs Date Time Temp Pulse Resp B/P (MAP) Pulse Ox O2 Delivery O2 Flow Rate FiO2 09/23/18 17:40 Room Air 09/23/18 15:00 97.8 79 18 119/71 (87) 92 97.8 09/22/18 18:44 90.0 Intake and Output 09/23/18 07:00 Intake Total 800 ml Balance 800 ml Intake Oral 800 ml # Voids 3 # Bowel Movements 1 Vitals Signs Vitals VS - Last 72 Hours, by Label Date Time Temp Pulse Resp B/P (MAP) Pulse Ox O2 Delivery O2 Flow Rate FiO2 09/23/18 17:40 Room Air 09/23/18 15:00 97.8 79 18 119/71 (87) 92 Room Air 97.8 09/23/18 13:19 Room Air 09/23/18 12:54 Room Air 09/23/18 11:47 Room Air 09/23/18 11:00 98.4 84 16 120/70 (87) 95 Room Air 98.4 09/23/18 09:32 Room Air 09/23/18 08:52 Room Air 09/23/18 08:00 Room Air 09/23/18 07:37 85 128/83 09/23/18 06:37 98.4 85 17 128/83 (98) 94 Room Air 98.4 09/23/18 02:48 98.9 88 16 124/59 (80) 98 Room Air 98.9 09/23/18 00:13 16 94 09/22/18 23:43 16 94 Room Air 09/22/18 23:04 98.4 93 18 131/77 (95) 94 Room Air 98.4 09/22/18 21:19 91 136/84 09/22/18 20:00 Room Air 09/22/18 19:00 99.3 96 19 138/87 (104) 96 Room Air 99.3 09/22/18 18:44 95 Room Air 90.0 09/22/18 16:56 95 09/22/18 15:56 95 Room Air 09/22/18 15:00 98.4 88 18 144/83 (103) 94 Room Air 98.4 09/22/18 14:53 90.0 09/22/18 14:23 94 Room Air 09/22/18 11:19 Room Air 09/22/18 11:00 98.4 90 18 150/86 (107) 94 Room Air 98.4 09/22/18 08:00 94 142/82 09/22/18 08:00 Room Air 09/22/18 08:00 Room Air 09/22/18 07:00 98.4 94 18 142/82 (102) 94 Room Air 98.4 Laboratory Laboratory Laboratory Tests Test 09/23/18 06:10 Sodium Level 128 mmol/L (136-145) Potassium Level 4.3 mmol/L (3.5-5.1) Chloride Level 92 mmol/L (98-107) Carbon Dioxide Level 27 mmol/L (21-32) Anion Gap 9 (6-14) Blood Urea Nitrogen 39 mg/dL (8-26) Creatinine 7.9 mg/dL (0.7-1.3) Estimated GFR (Cockcroft-Gault) 8.1 Glucose Level 102 mg/dL (70-99) Calcium Level 8.3 mg/dL (8.5-10.1) Phosphorus Level 4.8 mg/dL (2.6-4.7) Albumin 2.3 g/dL (3.4-5.0) Microbiology 09/12/18 Blood Culture - Final, Complete NO GROWTH AFTER 5 DAYS 09/12/18 CSF Gram Stain - Final, Complete 09/11/18 Urine Culture - Final, Complete 09/11/18 Urine Culture Result 1 ([place]) - Final, Complete Medication Medications Current Medications Cephalexin HCl (Keflex) 500 mg Q24H PO ; Start 09/24/18 at 14:00 Cephalexin HCl (Keflex) 500 mg TID PO Last administered on 09/23/18at 13:19; Start 09/23/18 at 14:00; Stop 09/23/18 at 15:57; Status DC Darbepoetin Jacob (ARANESP for DIALYSIS PTS) 60 mcg WEEKLYHS SQ Last administered on 09/22/18at 21:25; Start 09/22/18 at 21:00 Comment Review of Relevant I have reviewed the following items ashlie (where applicable) has been applied. KIM ELDER MD Sep 23, 2018 17:57
[2018-09-23 19:00] VITALS: BP 131/91
[2018-09-23] MEDS: PATCH REMOVAL. MC SCH (21:00)
[2018-09-23] MEDS: GABAPENTIN 300 MG CAPSULE. PO SCH (21:51)
[2018-09-23 22:40] VITALS: BP 126/81
[2018-09-24] MEDS: oxyCODONE IR 5 MG TABLET PO PRN ×4 (00:21→23:06)
[2018-09-24] MEDS: MORPHINE SULFATE 4 MG/ML VIAL. IV PRN ×5 (02:09→21:19)
[2018-09-24 03:00] VITALS: BP 116/75
[2018-09-24 03:47] LABS: HEMATOCRIT 21.6 % (39.0-53.0); HEMOGLOBIN 7.4 g/dL (13.0-17.5); RED BLOOD COUNT 2.52 x10^6/uL (4.30-5.70); WHITE BLOOD COUNT 11.7 x10^3/uL (4.0-11.0)
[2018-09-24 04:02] LABS: ALBUMIN 2.3 g/dL (3.4-5.0); CALCIUM 8.3 mg/dL (8.5-10.1); CREATININE 8.9 mg/dL (0.7-1.3); PHOSPHORUS 4.5 mg/dL (2.6-4.7); POTASSIUM 4.3 mmol/L (3.5-5.1)
[2018-09-24 07:00] VITALS: BP 108/69
[2018-09-24] MEDS: POLYETHYLENE GLYCOL 3350 17 GM PACKET. PO SCH (08:43)
[2018-09-24] MEDS: LACTOBACILLUS RHAMNOSUS GG 1 CAPSULE. PO SCH ×2 (08:44→21:19)
[2018-09-24] MEDS: PANTOPRAZOLE 40 MG TABLET.DR. PO SCH (08:44)
[2018-09-24] MEDS: LIDOCAINE (700MG/PATCH) PATCH. TD SCH (08:44)
[2018-09-24] MEDS: LABETALOL HCL 100 MG TABLET. PO SCH ×2 (09:00→21:19)
--- NOTE | 2018-09-24 09:05 | PDOC ---
PROGRESS NOTES Chief Complaint Chief Complaint New ESRD will be needing outpatient HD set up Self-pay? Hypotension resolved Anasarca Hepatorenal syndrome, status post Hydrocele, good scrotal flow Methamphetamine use Metabolic encephalopathy resolved Alcohol drinker Status post sepsis with hypotension Oliguric renal failure Insomnia History of Present Illness History of Present Illness continues to have anasarca I think they get fluid off during dialysis Scrotum large but not tight - good flow on sono, hydrocoele only HE is concerned and now penis also swollen Blood pressure better since I started labetalol 200 twice a day, 4 days ago MS now normal AMbulating well with PT and I have witnessed Plan: social work on board, self-pay versus Medicaid?? Will need dialysis as outpatient as I have verified with Dr. Mcintosh ON kefflex renal dosing q24 hrs for "cellulitis scrotal wall on US" COnsult urology re persistent hydrocoeles and penile swelling Trial of ambien qhs continues to be oliguric MAy dc PT/OT Vitals Vitals Vital Signs Date Time Temp Pulse Resp B/P (MAP) Pulse Ox O2 Delivery O2 Flow Rate FiO2 09/24/18 08:45 Room Air 09/24/18 07:00 98.8 96 16 108/69 (82) 94 98.8 Physical Exam Physical Exam GENERAL: Standing with PT then sat down, NAD, coop EENT: Pupils equal, oral cavity clear NECK: Supple. LUNGS: Clear bilaterally. No wheezing. HEART: S1, S2, regular, tachy 108s ABDOMEN: Soft, nontender, BS present : Fernandez EXTREMITIES: Generalized trace edema, no cyanosis. Right index with min swelling. Lesions are stable - mild maceration CENTRAL NERVOUS SYSTEM: Alert, answering appropriately RIJ/HDC without signs of complications PIV General: Oriented X3, Cooperative, mild distress Heart: Regular rate, Normal S1, No murmurs Lungs: Clear Abdomen: Normal bowel sounds, Soft, No hepatosplenomegaly, Other (obese, no fluid wave) Extremities: No clubbing, No cyanosis, No edema, Other (burn to right index finger APPEARS OLD associated cellulitis) Labs LABS Laboratory Tests Test 09/24/18 03:10 White Blood Count 11.7 x10^3/uL (4.0-11.0) Red Blood Count 2.52 x10^6/uL (4.30-5.70) Hemoglobin 7.4 g/dL (13.0-17.5) Hematocrit 21.6 % (39.0-53.0) Mean Corpuscular Volume 86 fL (79-100) Mean Corpuscular Hemoglobin 29 pg (25-35) Mean Corpuscular Hemoglobin Concent 34 g/dL (31-37) Red Cell Distribution Width 14.0 % (11.5-14.5) Platelet Count 169 x10^3/uL (140-400) Sodium Level 126 mmol/L (136-145) Potassium Level 4.3 mmol/L (3.5-5.1) Chloride Level 89 mmol/L (98-107) Carbon Dioxide Level 26 mmol/L (21-32) Anion Gap 11 (6-14) Blood Urea Nitrogen 46 mg/dL (8-26) Creatinine 8.9 mg/dL (0.7-1.3) Estimated GFR (Cockcroft-Gault) 7.0 Glucose Level 111 mg/dL (70-99) Calcium Level 8.3 mg/dL (8.5-10.1) Phosphorus Level 4.5 mg/dL (2.6-4.7) Creatine Kinase 909 U/L (39-308) Albumin 2.3 g/dL (3.4-5.0) Review of Systems Review of Systems scrotum and penis swollen, the rest of ROS 14 point negative Assessment and Plan Assessmemt and Plan Problems Medical Problems: (1) Elevated troponin Status: Acute (2) Hepatorenal syndrome Status: Acute (3) Hyperkalemia Status: Acute (4) Hyponatremia Status: Acute (5) Methamphetamine abuse Status: Acute (6) Neurological complaint Status: Acute (7) Rhabdomyolysis Status: Acute (8) Urinary retention Status: Acute (9) Urinary tract infection Status: Acute Comment Review of Relevant I have reviewed the following items ashlie (where applicable) has been applied. Labs Laboratory Tests Test 09/23/18 06:10 09/24/18 03:10 Sodium Level 128 mmol/L (136-145) 126 mmol/L (136-145) Potassium Level 4.3 mmol/L (3.5-5.1) 4.3 mmol/L (3.5-5.1) Chloride Level 92 mmol/L (98-107) 89 mmol/L (98-107) Carbon Dioxide Level 27 mmol/L (21-32) 26 mmol/L (21-32) Anion Gap 9 (6-14) 11 (6-14) Blood Urea Nitrogen 39 mg/dL (8-26) 46 mg/dL (8-26) Creatinine 7.9 mg/dL (0.7-1.3) 8.9 mg/dL (0.7-1.3) Estimated GFR (Cockcroft-Gault) 8.1 7.0 Glucose Level 102 mg/dL (70-99) 111 mg/dL (70-99) Calcium Level 8.3 mg/dL (8.5-10.1) 8.3 mg/dL (8.5-10.1) Phosphorus Level 4.8 mg/dL (2.6-4.7) 4.5 mg/dL (2.6-4.7) Albumin 2.3 g/dL (3.4-5.0) 2.3 g/dL (3.4-5.0) White Blood Count 11.7 x10^3/uL (4.0-11.0) Red Blood Count 2.52 x10^6/uL (4.30-5.70) Hemoglobin 7.4 g/dL (13.0-17.5) Hematocrit 21.6 % (39.0-53.0) Mean Corpuscular Volume 86 fL (79-100) Mean Corpuscular Hemoglobin 29 pg (25-35) Mean Corpuscular Hemoglobin Concent 34 g/dL (31-37) Red Cell Distribution Width 14.0 % (11.5-14.5) Platelet Count 169 x10^3/uL (140-400) Creatine Kinase 909 U/L (39-308) Laboratory Tests Test 09/24/18 03:10 White Blood Count 11.7 x10^3/uL (4.0-11.0) Red Blood Count 2.52 x10^6/uL (4.30-5.70) Hemoglobin 7.4 g/dL (13.0-17.5) Hematocrit 21.6 % (39.0-53.0) Mean Corpuscular Volume 86 fL (79-100) Mean Corpuscular Hemoglobin 29 pg (25-35) Mean Corpuscular Hemoglobin Concent 34 g/dL (31-37) Red Cell Distribution Width 14.0 % (11.5-14.5) Platelet Count 169 x10^3/uL (140-400) Sodium Level 126 mmol/L (136-145) Potassium Level 4.3 mmol/L (3.5-5.1) Chloride Level 89 mmol/L (98-107) Carbon Dioxide Level 26 mmol/L (21-32) Anion Gap 11 (6-14) Blood Urea Nitrogen 46 mg/dL (8-26) Creatinine 8.9 mg/dL (0.7-1.3) Estimated GFR (Cockcroft-Gault) 7.0 Glucose Level 111 mg/dL (70-99) Calcium Level 8.3 mg/dL (8.5-10.1) Phosphorus Level 4.5 mg/dL (2.6-4.7) Creatine Kinase 909 U/L (39-308) Albumin 2.3 g/dL (3.4-5.0) Microbiology 09/12/18 Blood Culture - Final, Complete NO GROWTH AFTER 5 DAYS 09/12/18 CSF Gram Stain - Final, Complete 09/11/18 Urine Culture - Final, Complete 09/11/18 Urine Culture Result 1 ([place]) - Final, Complete Medications Current Medications Morphine Sulfate (Morphine Sulfate) 4 mg 1X ONCE IV Last administered on 09/11/18at 21:20; Start 09/11/18 at 21:30; Stop 09/11/18 at 21:31; Status DC Sodium Chloride 1,000 ml @ 1,000 mls/hr 1X ONCE IV Last administered on 09/11/18at 22:30; Start 09/11/18 at 22:30; Stop 09/11/18 at 23:29; Status DC Calcium Gluconate (Calcium Gluconate) 1,000 mg 1X ONCE IVP Last administered on 09/11/18at 22:43; Start 09/11/18 at 23:00; Stop 09/11/18 at 23:01; Status DC Insulin Human Regular (HumuLIN R VIAL) 10 unit 1X ONCE IV Last administered on 09/11/18at 23:51; Start 09/11/18 at 23:00; Stop 09/11/18 at 23:01; Status DC Dextrose (Dextrose 50%-Water Syringe) 25 gm 1X ONCE IV Last administered on 09/11/18at 22:42; Start 09/11/18 at 23:00; Stop 09/11/18 at 23:01; Status DC Sodium Bicarbonate (Sodium Bicarb Adult 8.4% Syr) 50 meq 1X ONCE IV Last administered on 09/11/18at 23:49; Start 09/11/18 at 23:00; Stop 09/11/18 at 23:01; Status DC Sodium Chloride 1,000 ml @ 1,000 mls/hr 1X ONCE IV Last administered on 09/11/18at 23:50; Start 09/11/18 at 23:00; Stop 09/11/18 at 23:59; Status DC Albuterol Sulfate (Ventolin Neb Soln) 10 mg 1X ONCE CONT NEB Last administered on 09/12/18at 00:30; Start 09/11/18 at 23:00; Stop 09/11/18 at 23:01; Status DC Ceftriaxone Sodium (Rocephin) 1 gm 1X ONCE IVP Last administered on 09/11/18at 22:43; Start 09/11/18 at 23:00; Stop 09/11/18 at 23:01; Status DC Sodium Chloride 1,000 ml @ 1,000 mls/hr 1X ONCE IV Last administered on 09/12/18at 01:00; Start 09/12/18 at 01:00; Stop 09/12/18 at 01:59; Status DC Lorazepam (Ativan Inj) 0.5 mg PRN Q6HRS PRN IV ANXIETY / AGITATION Last administered on 09/12/18at 11:00; Start 09/12/18 at 01:15; Stop 09/13/18 at 08:48; Status DC Ondansetron HCl (Zofran) 4 mg PRN Q6HRS PRN IV NAUSEA/VOMITING 1ST CHOICE; Start 09/12/18 at 01:15; Stop 09/12/18 at 01:22; Status DC Sodium Chloride (Normal Saline Flush) 3 ml QSHIFT PRN IV AFTER MEDS AND BLOOD DRAWS; Start 09/12/18 at 01:15 Sodium Chloride 1,000 ml @ 175 mls/hr Q5H43M IV ; Start 09/12/18 at 01:08; Stop 09/12/18 at 01:23; Status DC Ondansetron HCl (Zofran) 4 mg PRN Q8HRS PRN IV NAUSEA/VOMITING 1ST CHOICE; Start 09/12/18 at 01:15; Stop 09/13/18 at 01:14; Status DC Sodium Chloride 1,000 ml @ 150 mls/hr Q6H40M IV ; Start 09/12/18 at 01:30; Stop 09/12/18 at 18:49; Status DC Morphine Sulfate (Morphine Sulfate) 4 mg PRN Q4HRS PRN IV SEVERE PAIN Last administered on 09/24/18at 08:45; Start 09/12/18 at 09:00 Sodium Bicarbonate (Sodium Bicarb Adult 8.4% Syr) 100 meq 1X ONCE IV Last administered on 09/12/18at 10:02; Start 09/12/18 at 10:00; Stop 09/12/18 at 10:01; Status DC Sodium Chloride 1,000 ml @ 1,000 mls/hr 1X ONCE IV Last administered on 09/12/18at 09:56; Start 09/12/18 at 10:00; Stop 09/12/18 at 10:59; Status DC Lidocaine/Sodium Bicarbonate (Buffered Lidocaine 1%) 3 ml STK-MED ONCE .ROUTE ; Start 09/12/18 at 11:07; Stop 09/12/18 at 11:08; Status DC Calcium Gluconate (Calcium Gluconate) 2,000 mg 1X ONCE IVP Last administered on 09/12/18at 13:38; Start 09/12/18 at 12:00; Stop 09/12/18 at 12:01; Status DC Ceftriaxone Sodium (Rocephin) 1 gm Q24H IVP Last administered on 09/12/18at 12 :49; Start 09/12/18 at 13:00; Stop 09/13/18 at 07:45; Status DC Silver Sulfadiazine (Silvadene) 1 elinor BID TP Last administered on 09/13/18at 10:06; Start 09/12/18 at 13:00; Stop 09/13/18 at 15:04; Status DC Sodium Chloride 1,000 ml @ 1,000 mls/hr 1X ONCE IV Last administered on 09/12/18at 12:47; Start 09/12/18 at 12:45; Stop 09/12/18 at 13:44; Status DC Pantoprazole Sodium (Protonix) 40 mg DAILYAC PO ; Start 09/12/18 at 13:30; Stop 09/12/18 at 19:22; Status DC Polyethylene Glycol (miraLAX PACKET) 17 gm DAILY PO Last administered on 09/24/18at 08:43; Start 09/12/18 at 13:30 Lidocaine/Sodium Bicarbonate (Buffered Lidocaine 1%) 3 ml STK-MED ONCE .ROUTE ; Start 09/12/18 at 13:48; Stop 09/12/18 at 13:49; Status DC Haloperidol Lactate (Haldol Inj) 1 mg PRN Q8HRS PRN IVP AGITATION Last administered on 09/14/18at 07:56; Start 09/12/18 at 14:00 Lorazepam (Ativan Inj) 2 mg PRN Q2HRS PRN IV ANXIETY. Last administered on 09/16/18at 21:22; Start 09/12/18 at 14:00; Stop 09/17/18 at 10:17; Status DC Lidocaine/Sodium Bicarbonate (Buffered Lidocaine 1%) 6 ml 1X ONCE INJ ; Start 09/12/18 at 14:15; Stop 09/12/18 at 14:16; Status DC Dexmedetomidine HCl 200 mcg/ Sodium Chloride 50 ml @ 0 mls/hr CONT PRN IV PER PROTOCOL Last administered on 09/15/18at 10:28; Start 09/12/18 at 14:15; Stop 09/17/18 at 10:17; Status DC Sodium Chloride 500 ml @ 500 mls/hr 1X PRN PRN IV SEE COMMENTS; Start 09/12/18 at 14:15; Stop 09/20/18 at 14:54; Status DC Atropine Sulfate (ATROPINE 0.5mg SYRINGE) 0.5 mg PRN Q5MIN PRN IV SEE COMMENTS; Start 09/12/18 at 14:15 Sodium Chloride 1,000 ml @ 1,000 mls/hr Q1H PRN IV hypotension; Start 09/12/18 at 15:08; Stop 09/12/18 at 21:07; Status DC Diphenhydramine HCl (Benadryl) 25 mg 1X PRN PRN IV ITCHING; Start 09/12/18 at 15:15; Stop 09/13/18 at 11:19; Status DC Diphenhydramine HCl (Benadryl) 25 mg 1X PRN PRN IV ITCHING; Start 09/12/18 at 15:15; Stop 09/13/18 at 11:19; Status DC Sodium Chloride 1,000 ml @ 400 mls/hr Q2H30M PRN IV PATENCY; Start 09/12/18 at 15:08; Stop 09/13/18 at 03:07; Status DC Info (PHARMACY MONITORING -- do not chart) 1 each PRN DAILY PRN MC SEE COMMENTS; Start 09/12/18 at 15:15; Stop 09/13/18 at 11:18; Status DC Pantoprazole Sodium (PROTONIX VIAL for IV PUSH) 40 mg DAILYAC IVP Last administered on 09/17/18at 10:04; Start 09/13/18 at 07:30; Stop 09/17/18 at 11:54; Status DC Linezolid (Zyvox) 600 mg BID PO Last administered on 09/19/18at 20:55; Start 09/13/18 at 09:00; Stop 09/19/18 at 22:00; Status DC Ceftriaxone Sodium (Rocephin) 2 gm Q24H IVP Last administered on 09/16/18at 12:14; Start 09/13/18 at 13:00; Stop 09/17/18 at 10:06; Status DC Calcium Gluconate 2000 mg/Dextrose 120 ml @ 220 mls/hr 1X ONCE IV Last administered on 09/13/18at 10:05; Start 09/13/18 at 10:00; Stop 09/13/18 at 10:32; Status DC Sodium Chloride 1,000 ml @ 1,000 mls/hr Q1H PRN IV hypotension; Start 09/13/18 at 11:06; Stop 09/13/18 at 17:05; Status DC Diphenhydramine HCl (Benadryl) 25 mg 1X PRN PRN IV ITCHING; Start 09/13/18 at 11:15; Stop 09/14/18 at 11:14; Status DC Diphenhydramine HCl (Benadryl) 25 mg 1X PRN PRN IV ITCHING; Start 09/13/18 at 11:15; Stop 09/14/18 at 11:14; Status DC Sodium Chloride 1,000 ml @ 400 mls/hr Q2H30M PRN IV PATENCY; Start 09/13/18 at 11:06; Stop 09/13/18 at 23:05; Status DC Info (PHARMACY MONITORING -- do not chart) 1 each PRN DAILY PRN MC SEE COMMENTS; Start 09/13/18 at 11:15; Status Cancel Potassium Chloride 10 meq/ Calcium Chloride 12.5 meq/ Bicarbonate Dialysis Soln w/ out KCl 5,013.9286 ml @ 1,000 mls/hr Q5H1M IV ; Start 09/14/18 at 13:00; Status Cancel Potassium Chloride 20 meq/ Calcium Chloride 12.5 meq/ Bicarbonate Dialysis Soln w/ out KCl 5,018.9286 ml @ 1,500 mls/hr Q3H21M IV ; Start 09/14/18 at 13:00; Stop 09/14/18 at 13:00; Status DC Heparin Sodium (Porcine) (Heparin Sodium) 4,000 unit 1X ONCE IV Last administered on 09/14/18at 19:54; Start 09/14/18 at 12:00; Stop 09/14/18 at 12:11; Status DC Heparin Sodium/ Dextrose 500 ml @ 0 mls/hr CONT PRN IV SEE I/O RECORD Last administered on 09/15/18at 15:05; Start 09/14/18 at 12:00; Stop 09/16/18 at 08:03; Status DC Heparin Sodium (Porcine) (Heparin Sodium) 2,500 unit PRN Q6HRS PRN IV FOR UFH LEVEL LESS THAN 0.2; Start 09/14/18 at 12:00; Stop 09/17/18 at 13:16; Status DC Potassium Chloride 10 meq/ Calcium Chloride 12.5 meq/ Bicarbonate Dialysis Soln w/ out KCl 5,013.9286 ml @ 1,000 mls/hr Q5H1M IV ; Start 09/14/18 at 13:00; Stop 09/14/18 at 13:00; Status DC Potassium Chloride 10 meq/ Bicarbonate Dialysis Soln w/ out KCl 5,005 ml @ 1,000 mls/hr Q5H1M IV ; Start 09/14/18 at 13:00; Stop 09/14/18 at 13:00; Status DC Potassium Chloride 20 meq/ Bicarbonate Dialysis Soln w/ out KCl 5,010 ml @ 1,500 mls/hr Q3H21M IV ; Start 09/14/18 at 13:00; Stop 09/14/18 at 13:00; Status DC Potassium Chloride 10 meq/ Bicarbonate Dialysis Soln w/ out KCl 5,005 ml @ 1,500 mls/hr Q3H21M IV ; Start 09/14/18 at 13:00; Stop 09/14/18 at 13:00; Status DC Potassium Chloride 20 meq/ Bicarbonate Dialysis Soln w/ out KCl 5,010 ml @ 1,000 mls/hr Q5H1M IV Last administered on 09/15/18at 20:43; Start 09/14/18 at 13:00; Stop 09/16/18 at 08:03; Status DC Potassium Chloride 20 meq/ Bicarbonate Dialysis Soln w/ out KCl 5,010 ml @ 1,500 mls/hr Q3H21M IV ; Start 09/14/18 at 12:45; Stop 09/14/18 at 12:45; Status DC Potassium Chloride 40 meq/ Bicarbonate Dialysis Soln w/ out KCl 5,020 ml @ 1,500 mls/hr Q3H21M IV ; Start 09/14/18 at 13:00; Stop 09/14/18 at 13:10; Status DC Potassium Chloride 60 meq/ Bicarbonate Dialysis Soln w/ out KCl 5,030 ml @ 1,500 mls/hr Q3H22M IV ; Start 09/14/18 at 13:00; Stop 09/14/18 at 13:07; Status DC Potassium Chloride 30 meq/ Bicarbonate Dialysis Soln w/ out KCl 5,015 ml @ 1,500 mls/hr Q3H21M IV ; Start 09/14/18 at 13:15; Stop 09/14/18 at 18:00; Status DC Potassium Chloride 20 meq/ Bicarbonate Dialysis Soln w/ out KCl 5,010 ml @ 1,500 mls/hr Q3H21M IV Last administered on 09/14/18at 21:06; Start 09/14/18 at 13:10; Stop 09/14/18 at 18:00; Status DC Potassium Chloride 30 meq/ Bicarbonate Dialysis Soln w/ out KCl 5,015 ml @ 1,500 mls/hr Q3H21M IV ; Start 09/14/18 at 18:00; Stop 09/14/18 at 19:10; Status DC Potassium Chloride 20 meq/ Bicarbonate Dialysis Soln w/ out KCl 5,010 ml @ 1,500 mls/hr Q3H21M IV Last administered on 09/16/18at 00:15; Start 09/14/18 at 18:01; Stop 09/16/18 at 08:03; Status DC Potassium Chloride 20 meq/ Bicarbonate Dialysis Soln w/ out KCl 5,010 ml @ 1,500 mls/hr Q3H21M IV Last administered on 09/16/18at 00:18; Start 09/14/18 at 20:00; Stop 09/16/18 at 08:03; Status DC Lactobacillus Rhamnosus (Culturelle) 1 cap BID PO Last administered on 09/24/18at 08:44; Start 09/16/18 at 21:00 Oxycodone HCl (Roxicodone) 5 mg PRN Q4HRS PRN PO MODERATE TO SEVERE PAIN Last administered on 09/24/18 05:49; Start 09/16/18 at 11:45 Lorazepam (Ativan Inj) 1 mg PRN Q8HRS PRN IV ANXIETY.; Start 09/16/18 at 16:00 Gabapentin (Neurontin) 300 mg QHS PO Last administered on 09/23/18at 21:51; Start 09/16/18 at 21:00 Labetalol HCl (Normodyne Iv Push) 10 mg PRN Q4HRS PRN IVP HYPERTENSION Last adm inistered on 09/17/18at 03:33; Start 09/16/18 at 23:30; Stop 09/17/18 at 09:26; Status DC Labetalol HCl (Normodyne Iv Push) 20 mg PRN Q4HRS PRN IVP HYPERTENSION; Start 09/17/18 at 09:30; Stop 09/18/18 at 19:10; Status DC Ondansetron HCl (Zofran) 4 mg PRN Q6HRS PRN IV NAUSEA/VOMITING Last administered on 09/23/18at 08:51; Start 09/17/18 at 09:30 Acetaminophen (Tylenol) 500 mg PRN Q6HRS PRN PO MILD PAIN / TEMP; Start 09/17/18 at 09:30 Lidocaine (Lidoderm) 1 patch DAILY TD Last administered on 09/24/18at 08:44; Start 09/17/18 at 10:00 Miscellaneous (Lidoderm Patch Removal) 1 ea QHS MC Last administered on 09/23/18at 21:00; Start 09/17/18 at 21:00 Sodium Chloride 1,000 ml @ 1,000 mls/hr Q1H PRN IV hypotension; Start 09/17/18 at 11:26; Stop 09/17/18 at 17:25; Status DC Albumin Human 200 ml @ 200 mls/hr 1X PRN PRN IV Hypotension; Start 09/17/18 at 11:30; Stop 09/17/18 at 17:29; Status DC Sodium Chloride (Normal Saline Flush) 10 ml 1X PRN PRN IV AP catheter pack; Start 09/17/18 at 11:30; Stop 09/18/18 at 11:29; Status DC Sodium Chloride (Normal Saline Flush) 10 ml 1X PRN PRN IV 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; Start 09/17/18 at 11:30; Stop 09/18/18 at 11:29; Status DC Sodium Chloride 1,000 ml @ 400 mls/hr Q2H30M PRN IV PATENCY; Start 09/17/18 at 11:26; Stop 09/17/18 at 23:25; Status DC Info (PHARMACY MONITORING -- do not chart) 1 each PRN DAILY PRN MC SEE COMMENTS; Start 09/17/18 at 11:30; Status UNV Info (PHARMACY MONITORING -- do not chart) 1 each PRN DAILY PRN MC SEE COMMENTS; Start 09/17/18 at 11:30; Status Cancel Pantoprazole Sodium (Protonix) 40 mg DAILYAC PO Last administered on 09/24/18at 08:44; Start 09/18/18 at 07:30 Labetalol HCl (Trandate) 100 mg BID PO Last administered on 09/18/18at 19:40; Start 09/18/18 at 09:00; Stop 09/19/18 at 09:13; Status DC Lorazepam (Ativan) 0.5 mg PRN Q8HRS PRN PO ANXIETY / AGITATION; Start 09/18/18 at 09:00 Haloperidol (Haldol) 0.5 mg PRN QID PRN PO AGITATION, 2ND CHOICE; Start 09/18/18 at 09:00; Stop 09/18/18 at 09:03; Status DC Haloperidol Lactate (HALDOL 2mg ORAL CONC) 0.5 mg PRN QID PRN PO AGITATION, 2ND CHOICE; Start 09/18/18 at 09:03 Metoprolol Tartrate (Lopressor Vial) 10 mg PRN Q6HRS PRN IVP HYPERTENSION; Start 09/18/18 at 19:15 Labetalol HCl (Trandate) 200 mg BID PO Last administered on 09/23/18at 21:54; Start 09/19/18 at 10:00 Sodium Chloride 1,000 ml @ 1,000 mls/hr Q1H PRN IV hypotension; Start 09/19/18 at 10:18; Stop 09/19/18 at 16:17; Status DC Diphenhydramine HCl (Benadryl) 25 mg 1X PRN PRN IV ITCHING; Start 09/19/18 at 10:30; Stop 09/20/18 at 10:29; Status DC Diphenhydramine HCl (Benadryl) 25 mg 1X PRN PRN IV ITCHING; Start 09/19/18 at 10:30; Stop 09/20/18 at 10:29; Status DC Sodium Chloride 1,000 ml @ 400 mls/hr Q2H30M PRN IV PATENCY; Start 09/19/18 at 10:18; Stop 09/19/18 at 22:17; Status DC Info (PHARMACY MONITORING -- do not chart) 1 each PRN DAILY PRN MC SEE COMMENTS; Start 09/19/18 at 10:30; Status UNV Midazolam HCl (Versed) 2 mg STK-MED ONCE .ROUTE ; Start 09/20/18 at 08:12; Stop 09/20/18 at 08:13; Status DC Fentanyl Citrate (Fentanyl 2ml Vial) 100 mcg STK-MED ONCE .ROUTE ; Start 09/20/18 at 08:12; Stop 09/20/18 at 08:13; Status DC Lidocaine/ Epinephrine (LIDOCAINE 1%-EPI 1:100,000 Multi-Dose) 20 ml STK-MED ONCE .ROUTE ; Start 09/20/18 at 08:13; Stop 09/20/18 at 08:14; Status DC Cefazolin Sodium 50 ml @ As Directed STK-MED ONCE IV ; Start 09/20/18 at 08:18; Stop 09/20/18 at 08:19; Status DC Cefazolin Sodium 50 ml @ As Directed STK-MED ONCE IV ; Start 09/20/18 at 08:18; Stop 09/20/18 at 08:19; Status DC Midazolam HCl (Versed) 2 mg STK-MED ONCE .ROUTE ; Start 09/20/18 at 08:39; Stop 09/20/18 at 08:40; Status DC Midazolam HCl (Versed) 2 mg 1X ONCE IV Last administered on 09/20/18at 08:45; Start 09/20/18 at 08:45; Stop 09/20/18 at 08:52; Status DC Fentanyl Citrate (Fentanyl 2ml Vial) 100 mcg 1X ONCE IV Last administered on 09/20/18 08:45; Start 09/20/18 at 08:45; Stop 09/20/18 at 08:52; Status DC Lidocaine/ Epinephrine (LIDOCAINE 1%-EPI 1:100,000 Multi-Dose) 20 ml 1X ONCE IJ Last administered on 09/20/18at 08:45; Start 09/20/18 at 08:45; Stop 09/20/18 at 08:52; Status DC Cefazolin Sodium 50 ml @ 100 mls/hr 1X ONCE IV Last administered on 09/20/18at 08:45; Start 09/20/18 at 08:45; Stop 09/20/18 at 09:14; Status DC Cefazolin Sodium 50 ml @ 100 mls/hr 1X ONCE IV Last administered on 09/20/18at 08:45; Start 09/20/18 at 08:45; Stop 09/20/18 at 09:14; Status DC Furosemide (Lasix) 40 mg 1X ONCE IVP Last administered on 09/20/18at 14:44; Start 09/20/18 at 14:30; Stop 09/20/18 at 14:31; Status DC Furosemide (Lasix) 40 mg 1X ONCE IVP Last administered on 09/21/18at 12:49; Start 09/21/18 at 12:30; Stop 09/21/18 at 12:31; Status DC Sodium Chloride 1,000 ml @ 1,000 mls/hr Q1H PRN IV hypotension; Start 09/21/18 at 16:54; Stop 09/21/18 at 22:53; Status DC Sodium Chloride 1,000 ml @ 400 mls/hr Q2H30M PRN IV PATENCY; Start 09/21/18 at 16:54; Stop 09/22/18 at 04:53; Status DC Info (PHARMACY MONITORING -- do not chart) 1 each PRN DAILY PRN MC SEE COMMENTS; Start 09/21/18 at 17:00 Info (PHARMACY MONITORING -- do not chart) 1 each PRN DAILY PRN MC SEE COMMENTS; Start 09/21/18 at 17:00; Status UNV Ceftriaxone Sodium (Rocephin) 1 gm Q24H IVP Last administered on 09/23/18at 08:52; Start 09/22/18 at 10:00; Stop 09/23/18 at 11:21; Status DC Darbepoetin Jacob (ARANESP for DIALYSIS PTS) 60 mcg [id number] SQ Last administered on 09/22/18at 21:25; Start 09/22/18 at 21:00 Cephalexin HCl (Keflex) 500 mg TID PO Last administered on 09/23/18at 13:19; Start 09/23/18 at 14:00; Stop 09/23/18 at 15:57; Status DC Cephalexin HCl (Keflex) 500 mg Q24H PO ; Start 09/24/18 at 14:00 Active Scripts Active Reported Protonix (Pantoprazole Sodium) 20 Mg Tablet.dr 2 Tab PO DAILY Zyprexa (Olanzapine) 20 Mg Tablet 2 Tab PO QHS Buspirone Hcl 30 Mg Tablet 1 Tab PO BID Vitals/I & O Vital Sign - Last 24 Hours 09/23/18 09/23/18 09/23/18 09/23/18 11:00 11:47 13:19 15:00 Temp 98.4 97.8 98.4 97.8 Pulse 84 79 Resp 16 18 B/P (MAP) 120/70 (87) 119/71 (87) Pulse Ox 95 92 O2 Delivery Room Air Room Air Room Air Room Air 09/23/18 09/23/18 09/23/18 09/23/18 17:40 18:22 18:22 19:00 Temp 98.6 98.6 Pulse 88 Resp 18 B/P (MAP) 131/91 (104) Pulse Ox 93 O2 Delivery Room Air Room Air Room Air Room Air 09/23/18 09/23/18 09/23/18 09/24/18 20:00 21:54 22:40 03:00 Temp 98.8 98.5 98.8 98.5 Pulse 93 93 103 Resp 18 19 B/P (MAP) 118/79 126/81 (96) 116/75 (89) Pulse Ox 91 96 O2 Delivery Room Air Room Air Room Air 09/24/18 09/24/18 09/24/18 06:49 07:00 08:45 Temp 98.8 98.8 Pulse 96 Resp 20 16 B/P (MAP) 108/69 (82) Pulse Ox 96 94 O2 Delivery Room Air Room Air Room Air Intake and Output 09/23/18 09/23/18 09/24/18 15:00 23:00 07:00 Intake Total 120 ml 350 ml Balance 120 ml 350 ml DEEPA QUINTERO MD Sep 24, 2018 09:04
[2018-09-24] MEDS ORDERED: ZOLPIDEM 5 MG TABLET. PO PRN (09:15)
--- NOTE | 2018-09-24 09:33 | PDOC2 ---
UROLOGY CONSULT Date of Consult Date of Consult DATE: 09/24/18 TIME: 09:30 Identification/Chief Complaint Chief Complaint Scrotal swelling. History of Present Illness Reason for Visit: This gentleman just got out of penitentiary and unfortunately celebrated by overdosing on meth. This choice negatively affected his kidneys and led to CARO, Rhabdomyolysis and severe metabolic acidosis. There are plans for dialysis soon per nephrology team. Urology was consulted because patient has had persistent scrotal swelling over the weekend and US revealed a hydrocele. PT reports that he had complained of scrotal pain when walking but when he is at rest he does not have this pain. He first noticed the scrotal swelling four days ago, but did not have any pain in this area until yesterday. The pain is not bad when he is still, but he does notice scrotal pain with examination or with ambulation. He denies a history of falling or any other injury to the area. He reports: "this just started happening." He only urinates once every four days now, in light of his severe kidney injury, but does not notice any pain or difficulty with urination when he does this. His urine resembles dark tea/light coffee whenever he does go with light sediment present; he just voided this morning. Prior to his kidney injury, his urine was yellow and he denies seeing any hematuria up until this point. He denies prostate, bladder, or kidney problems in his medical history. Per nursing they just changed his antibiotic yesterday to Keflex 500 q day Past Medical History GI: GERD Psych: Anxiety, Addictions, Depression Past Surgical History Past Surgical History: No pertinent history Family History Family History: Hypertension Social History <1 pack per day ALCOHOL: occassional Drugs: Crystal meth, Other (h/o IVDU) Current Medications Current Medications Current Medications Cephalexin HCl (Keflex) 500 mg Q24H PO ; Start 09/24/18 at 14:00 Cephalexin HCl (Keflex) 500 mg TID PO Last administered on 09/23/18at 13:19; Start 09/23/18 at 14:00; Stop 09/23/18 at 15:57; Status DC Zolpidem Tartrate (Ambien) 5 mg PRN QHS PRN PO INSOMNIA; Start 09/24/18 at 09:15 Allergies Allergies: Coded Allergies: I S O L A T I O N *CONTACT* (Verified Allergy, Unknown, 09/13/18) mrsa No Known Medication Allergies (Verified Allergy, Unknown, 09/13/18) ROS Review Of Systems: CONSTITUTIONAL: No fever or chills EYES: No recent changes SKIN: No rash or itching CARDIOVASCULAR: No chest pain, syncope, palpitations, or edema RESPIRATORY: No SOB or cough GASTROINTESTINAL: Abd swelling NEUROLOGICAL: No headaches or weakness ENDOCRINE: No cold or heat intolerance GENITOURINARY: No urgency or frequency of urination. Swollen scrotum MUSCULOSKELETAL: No back pain or joint pain LYMPHATICS: No enlarged lymph nodes PSYCHIATRIC: No anxiety or depression Physical Exam Physical Exam: General: Pleasant, no acute distress, well groomed Eyes: conjunctiva anicteric, eyes full range of motion ENT: moist oral mucosa, normal dentition Neck: Trachea midline, no masses Respiratory: unlabored breathing, not using accessory muscles Abdomen: nontender, + generalized edema noted Pelvic: Bladder scan reveals PVR of 0. Head of phallus has swelling just below head, scrotum shows swelling, unable to appreciate testicles secondary to this. No open areas/drainage noted. Pt reports pain4/10 with exam. Urine visualized: dark tea colored with scant "coffee ground"sediment present. Skin: no rashes or skin lesions on visualized skin Extremities: Bilat lower extremities reveal edema 2-3+ pitting from mid thigh through ankles. Psych: normal mood, affect. Alert and oriented x 3. Vitals VITALS Vital Signs Date Time Temp Pulse Resp B/P (MAP) Pulse Ox O2 Delivery O2 Flow Rate FiO2 09/24/18 08:45 Room Air 09/24/18 07:00 98.8 96 16 108/69 (82) 94 98.8 Labs Labs Laboratory Tests Test 09/23/18 06:10 09/24/18 03:10 Sodium Level 128 mmol/L (136-145) 126 mmol/L (136-145) Potassium Level 4.3 mmol/L (3.5-5.1) 4.3 mmol/L (3.5-5.1) Chloride Level 92 mmol/L (98-107) 89 mmol/L (98-107) Carbon Dioxide Level 27 mmol/L (21-32) 26 mmol/L (21-32) Anion Gap 9 (6-14) 11 (6-14) Blood Urea Nitrogen 39 mg/dL (8-26) 46 mg/dL (8-26) Creatinine 7.9 mg/dL (0.7-1.3) 8.9 mg/dL (0.7-1.3) Estimated GFR (Cockcroft-Gault) 8.1 7.0 Glucose Level 102 mg/dL (70-99) 111 mg/dL (70-99) Calcium Level 8.3 mg/dL (8.5-10.1) 8.3 mg/dL (8.5-10.1) Phosphorus Level 4.8 mg/dL (2.6-4.7) 4.5 mg/dL (2.6-4.7) Albumin 2.3 g/dL (3.4-5.0) 2.3 g/dL (3.4-5.0) White Blood Count 11.7 x10^3/uL (4.0-11.0) Red Blood Count 2.52 x10^6/uL (4.30-5.70) Hemoglobin 7.4 g/dL (13.0-17.5) Hematocrit 21.6 % (39.0-53.0) Mean Corpuscular Volume 86 fL (79-100) Mean Corpuscular Hemoglobin 29 pg (25-35) Mean Corpuscular Hemoglobin Concent 34 g/dL (31-37) Red Cell Distribution Width 14.0 % (11.5-14.5) Platelet Count 169 x10^3/uL (140-400) Creatine Kinase 909 U/L (39-308) Laboratory Tests Test 09/24/18 03:10 White Blood Count 11.7 x10^3/uL (4.0-11.0) Red Blood Count 2.52 x10^6/uL (4.30-5.70) Hemoglobin 7.4 g/dL (13.0-17.5) Hematocrit 21.6 % (39.0-53.0) Mean Corpuscular Volume 86 fL (79-100) Mean Corpuscular Hemoglobin 29 pg (25-35) Mean Corpuscular Hemoglobin Concent 34 g/dL (31-37) Red Cell Distribution Width 14.0 % (11.5-14.5) Platelet Count 169 x10^3/uL (140-400) Sodium Level 126 mmol/L (136-145) Potassium Level 4.3 mmol/L (3.5-5.1) Chloride Level 89 mmol/L (98-107) Carbon Dioxide Level 26 mmol/L (21-32) Anion Gap 11 (6-14) Blood Urea Nitrogen 46 mg/dL (8-26) Creatinine 8.9 mg/dL (0.7-1.3) Estimated GFR (Cockcroft-Gault) 7.0 Glucose Level 111 mg/dL (70-99) Calcium Level 8.3 mg/dL (8.5-10.1) Phosphorus Level 4.5 mg/dL (2.6-4.7) Creatine Kinase 909 U/L (39-308) Albumin 2.3 g/dL (3.4-5.0) Images Images IMPRESSION: 1. No focal testicular lesion. 2. Both testicles show evidence of blood flow. 3. Diffusely thickened scrotal wall with edema. Clinically correlate with scrotal wall cellulitis. Assessment/Plan Assessment/Plan Scrotal swelling secondary to third spacing of fluid vs cellulitis. Antibiotic just changed yesterday, continue per medical team (Keflex 500 q day). Please keep scrotum elevated with towels to promote drainage. Patient may also have ice packs to scrotum PRN pain=Orders given for nursing. US reviewed. Recommend repeating if swelling increases dramatically. Bladder scan shows PVR of 0 times three= no retention. I did recommend that he try to void once per day, even if he doesn't have the sensation to do so, just to keep his bladder empty. Dr. Wolff to round on patient later. AARON CALIX APRN Sep 24, 2018 09:33
--- NOTE | 2018-09-24 10:58 | NUR ---
Held Labetolol due to pt going to be receiving dialysis.
--- NOTE | 2018-09-24 10:59 | NUR ---
Pt scrotum enlarged. Elevated with towels and ice pack applied.
[2018-09-24 11:00] VITALS: BP 132/56
--- NOTE | 2018-09-24 11:13 | PDOC ---
Renal-Progress Notes Subjective Notes Notes NOTHING NEW History of Present Illness Hx of present illness STABLE Vitals Vitals Vital Signs Date Time Temp Pulse Resp B/P (MAP) Pulse Ox O2 Delivery O2 Flow Rate FiO2 09/24/18 10:30 Nasal Cannula 2.0 09/24/18 09:00 96 108/69 09/24/18 07:00 98.8 16 94 98.8 Weight Weight [ ] I.O. Intake and Output Intake and Output 09/24/18 06:59 Intake Total 470 ml Balance 470 ml Intake Oral 470 ml # Voids 4 Labs Labs Laboratory Tests Test 09/24/18 03:10 White Blood Count 11.7 x10^3/uL (4.0-11.0) Red Blood Count 2.52 x10^6/uL (4.30-5.70) Hemoglobin 7.4 g/dL (13.0-17.5) Hematocrit 21.6 % (39.0-53.0) Mean Corpuscular Volume 86 fL (79-100) Mean Corpuscular Hemoglobin 29 pg (25-35) Mean Corpuscular Hemoglobin Concent 34 g/dL (31-37) Red Cell Distribution Width 14.0 % (11.5-14.5) Platelet Count 169 x10^3/uL (140-400) Sodium Level 126 mmol/L (136-145) Potassium Level 4.3 mmol/L (3.5-5.1) Chloride Level 89 mmol/L (98-107) Carbon Dioxide Level 26 mmol/L (21-32) Anion Gap 11 (6-14) Blood Urea Nitrogen 46 mg/dL (8-26) Creatinine 8.9 mg/dL (0.7-1.3) Estimated GFR (Cockcroft-Gault) 7.0 Glucose Level 111 mg/dL (70-99) Calcium Level 8.3 mg/dL (8.5-10.1) Phosphorus Level 4.5 mg/dL (2.6-4.7) Creatine Kinase 909 U/L (39-308) Albumin 2.3 g/dL (3.4-5.0) Micro Micro Microbiology 09/12/18 Blood Culture - Final, Complete NO GROWTH AFTER 5 DAYS 09/12/18 CSF Gram Stain - Final, Complete 09/11/18 Urine Culture - Final, Complete 09/11/18 Urine Culture Result 1 ([place]) - Final, Complete Review of Systems Constitutional: yes: weakness, alert, oriented Ears/Nose/Throat: Yes: no symptom reported Eyes: Yes: no symptom reported Pulmonary: Yes no symptom reported Cardiovascular: Yes no symptom reported Gastrointestional: Yes: no symptom reported Genitourinary: Yes: no symptom reported Skin: Yes no symptom reported Psychiatric/Neurological: Yes: no symptom reported Endocrine: Yes: no symptom reported Physical Exam Skin: warm Respiratory: decreased breath sounds Heart: S1S2, RRR Abdomen: soft, bowel sounds present Genitourinary: bladder flat Extremities: pulses present Neurology: alert, oriented Assessment Assessment IMP CARO DUE RHABDO-NO RECOVERY YET-ANURIC RHABDOMYOLYSIS-CPK OF OVER 100,000 AT [facility]-NOW 1440 URINARY RETENTION SCROTAL EDEMA PLAN ARANESP WILL NEED TO HAVE SW SET UP OP HD HD TODAY UF TO DW AND [facility] HAS SOME CHANCE OF RECOVERY BUT WILL PROB TAKE WEEKS IF NOT MONTHS LISA MCGOVERN MD Sep 24, 2018 11:13
--- NOTE | 2018-09-24 11:41 | PDOC ---
PULMONARY PROGRESS NOTES Subjective asked by RN to see him as he has c/o soa on canula Vitals Vital Signs Date Time Temp Pulse Resp B/P (MAP) Pulse Ox O2 Delivery O2 Flow Rate FiO2 09/24/18 11:00 98.0 94 16 132/56 (81) 88 Room Air 98.0 09/24/18 10:30 2.0 General: No acute distress Lungs: Clear Cardiovascular: S1, S2 Abdomen: Soft, Non-tender, Other (no mass) Extremities: Other (1+edema,) Skin: Warm Labs Laboratory Tests Test 09/23/18 06:10 09/24/18 03:10 Sodium Level 128 mmol/L (136-145) 126 mmol/L (136-145) Potassium Level 4.3 mmol/L (3.5-5.1) 4.3 mmol/L (3.5-5.1) Chloride Level 92 mmol/L (98-107) 89 mmol/L (98-107) Carbon Dioxide Level 27 mmol/L (21-32) 26 mmol/L (21-32) Anion Gap 9 (6-14) 11 (6-14) Blood Urea Nitrogen 39 mg/dL (8-26) 46 mg/dL (8-26) Creatinine 7.9 mg/dL (0.7-1.3) 8.9 mg/dL (0.7-1.3) Estimated GFR (Cockcroft-Gault) 8.1 7.0 Glucose Level 102 mg/dL (70-99) 111 mg/dL (70-99) Calcium Level 8.3 mg/dL (8.5-10.1) 8.3 mg/dL (8.5-10.1) Phosphorus Level 4.8 mg/dL (2.6-4.7) 4.5 mg/dL (2.6-4.7) Albumin 2.3 g/dL (3.4-5.0) 2.3 g/dL (3.4-5.0) White Blood Count 11.7 x10^3/uL (4.0-11.0) Red Blood Count 2.52 x10^6/uL (4.30-5.70) Hemoglobin 7.4 g/dL (13.0-17.5) Hematocrit 21.6 % (39.0-53.0) Mean Corpuscular Volume 86 fL (79-100) Mean Corpuscular Hemoglobin 29 pg (25-35) Mean Corpuscular Hemoglobin Concent 34 g/dL (31-37) Red Cell Distribution Width 14.0 % (11.5-14.5) Platelet Count 169 x10^3/uL (140-400) Creatine Kinase 909 U/L (39-308) Laboratory Tests Test 09/24/18 03:10 White Blood Count 11.7 x10^3/uL (4.0-11.0) Red Blood Count 2.52 x10^6/uL (4.30-5.70) Hemoglobin 7.4 g/dL (13.0-17.5) Hematocrit 21.6 % (39.0-53.0) Mean Corpuscular Volume 86 fL (79-100) Mean Corpuscular Hemoglobin 29 pg (25-35) Mean Corpuscular Hemoglobin Concent 34 g/dL (31-37) Red Cell Distribution Width 14.0 % (11.5-14.5) Platelet Count 169 x10^3/uL (140-400) Sodium Level 126 mmol/L (136-145) Potassium Level 4.3 mmol/L (3.5-5.1) Chloride Level 89 mmol/L (98-107) Carbon Dioxide Level 26 mmol/L (21-32) Anion Gap 11 (6-14) Blood Urea Nitrogen 46 mg/dL (8-26) Creatinine 8.9 mg/dL (0.7-1.3) Estimated GFR (Cockcroft-Gault) 7.0 Glucose Level 111 mg/dL (70-99) Calcium Level 8.3 mg/dL (8.5-10.1) Phosphorus Level 4.5 mg/dL (2.6-4.7) Creatine Kinase 909 U/L (39-308) Albumin 2.3 g/dL (3.4-5.0) Medications Active Scripts Medications Dose Route/Sig Max Daily Dose Days Date Category Protonix (Pantoprazole Sodium) 20 Mg Tablet.dr 2 Tab PO DAILY 09/12/18 Reported Zyprexa (Olanzapine) 20 Mg Tablet 2 Tab PO QHS 09/12/18 Reported Buspirone Hcl 30 Mg Tablet 1 Tab PO BID 09/12/18 Reported Comments 09/16, cxr reviewed increased vm Impression . 1. Status post fall with acute rhabdomyolysis with markedly high CPKs and acute renal failure. 2. Acute kidney injury secondary to rhabdomyolysis. 3. Severe metabolic acidosis secondary to acute kidney injury. Clinically, less likely sepsis. Lactic acid is 1.1, improved MA 4. Hyponatremia.improving 5. Moderate protein-calorie malnutrition. 6. Leukocytosis, likely reactive. 7. Status post fall with abnormal thoracic MRI. Neurosurgery following. 8. Abnormal liver function test secondary to hypoperfusion and rhabdomyolysis. 9. Hypocalcemia.improving 10. Dyspnea today, will get cxr to r/o CHF Plan . 1. cxr today 2. Follow Renal's recommendation. 3. HD Discussed with EITAN ESTRADA MD Sep 24, 2018 11:41
--- NOTE | 2018-09-24 12:18 | PDOC ---
PROGRESS NOTES Assessment Problems Medical Problems: (1) Elevated troponin Status: Acute (2) Hepatorenal syndrome Status: Acute (3) Hyperkalemia Status: Acute (4) Hyponatremia Status: Acute (5) Methamphetamine abuse Status: Acute (6) Neurological complaint Status: Acute (7) Rhabdomyolysis Status: Acute (8) Urinary retention Status: Acute (9) Urinary tract infection Status: Acute Bilateral leg weakness and numbness, component of factitious disorder But he has rhabdomyolysis, edema of the psoas muscle on the MRI, lumbar epidural lipomatosis Methamphetamine abuse. Scrotal edema Patient continuing to improve Plan Continue supportive care for rhabdomyolysis, renal insufficiency, and other medical problems. He is getting dialysis Urology to see I don't think neurosurgery has to see him again given marked improvement Physical and occupational therapy. Subjective Complains of scrotal and limb swelling Objective Vital Signs Date Time Temp Pulse Resp B/P (MAP) Pulse Ox O2 Delivery O2 Flow Rate FiO2 09/24/18 11:00 98.0 94 16 132/56 (81) 88 Room Air 98.0 09/24/18 10:30 2.0 Intake and Output0 09/24/18 06:59 Intake Total 470 ml Balance 470 ml Intake Oral 470 ml # Voids 4 PHYSICAL EXAM Alert. Oriented to time, place and person. PERRL. EOMI. CN: no focal findings. Muscle tone: normal. Muscle strength: 5/5 arms, 4/5 legs DTR: 2+ Plantar reflex: flexor Gait: not examined in bed. Sensory exam: no abnormal findings. No cerebellar signs elicited. Review of Relevant I have reviewed the following items ashlie (where applicable) has been applied. Labs Laboratory Tests Test 09/23/18 06:10 09/24/18 03:10 Sodium Level 128 mmol/L (136-145) 126 mmol/L (136-145) Potassium Level 4.3 mmol/L (3.5-5.1) 4.3 mmol/L (3.5-5.1) Chloride Level 92 mmol/L (98-107) 89 mmol/L (98-107) Carbon Dioxide Level 27 mmol/L (21-32) 26 mmol/L (21-32) Anion Gap 9 (6-14) 11 (6-14) Blood Urea Nitrogen 39 mg/dL (8-26) 46 mg/dL (8-26) Creatinine 7.9 mg/dL (0.7-1.3) 8.9 mg/dL (0.7-1.3) Estimated GFR (Cockcroft-Gault) 8.1 7.0 Glucose Level 102 mg/dL (70-99) 111 mg/dL (70-99) Calcium Level 8.3 mg/dL (8.5-10.1) 8.3 mg/dL (8.5-10.1) Phosphorus Level 4.8 mg/dL (2.6-4.7) 4.5 mg/dL (2.6-4.7) Albumin 2.3 g/dL (3.4-5.0) 2.3 g/dL (3.4-5.0) White Blood Count 11.7 x10^3/uL (4.0-11.0) Red Blood Count 2.52 x10^6/uL (4.30-5.70) Hemoglobin 7.4 g/dL (13.0-17.5) Hematocrit 21.6 % (39.0-53.0) Mean Corpuscular Volume 86 fL (79-100) Mean Corpuscular Hemoglobin 29 pg (25-35) Mean Corpuscular Hemoglobin Concent 34 g/dL (31-37) Red Cell Distribution Width 14.0 % (11.5-14.5) Platelet Count 169 x10^3/uL (140-400) Creatine Kinase 909 U/L (39-308) Laboratory Tests Test 09/24/18 03:10 White Blood Count 11.7 x10^3/uL (4.0-11.0) Red Blood Count 2.52 x10^6/uL (4.30-5.70) Hemoglobin 7.4 g/dL (13.0-17.5) Hematocrit 21.6 % (39.0-53.0) Mean Corpuscular Volume 86 fL (79-100) Mean Corpuscular Hemoglobin 29 pg (25-35) Mean Corpuscular Hemoglobin Concent 34 g/dL (31-37) Red Cell Distribution Width 14.0 % (11.5-14.5) Platelet Count 169 x10^3/uL (140-400) Sodium Level 126 mmol/L (136-145) Potassium Level 4.3 mmol/L (3.5-5.1) Chloride Level 89 mmol/L (98-107) Carbon Dioxide Level 26 mmol/L (21-32) Anion Gap 11 (6-14) Blood Urea Nitrogen 46 mg/dL (8-26) Creatinine 8.9 mg/dL (0.7-1.3) Estimated GFR (Cockcroft-Gault) 7.0 Glucose Level 111 mg/dL (70-99) Calcium Level 8.3 mg/dL (8.5-10.1) Phosphorus Level 4.5 mg/dL (2.6-4.7) Creatine Kinase 909 U/L (39-308) Albumin 2.3 g/dL (3.4-5.0) Microbiology 09/12/18 Blood Culture - Final, Complete NO GROWTH AFTER 5 DAYS 09/12/18 CSF Gram Stain - Final, Complete 09/11/18 Urine Culture - Final, Complete 09/11/18 Urine Culture Result 1 ([place]) - Final, Complete Medications Current Medications Morphine Sulfate (Morphine Sulfate) 4 mg 1X ONCE IV Last administered on 09/11/18at 21:20; Start 09/11/18 at 21:30; Stop 09/11/18 at 21:31; Status DC Sodium Chloride 1,000 ml @ 1,000 mls/hr 1X ONCE IV Last administered on 09/11/18at 22:30; Start 09/11/18 at 22:30; Stop 09/11/18 at 23:29; Status DC Calcium Gluconate (Calcium Gluconate) 1,000 mg 1X ONCE IVP Last administered on 09/11/18at 22:43; Start 09/11/18 at 23:00; Stop 09/11/18 at 23:01; Status DC Insulin Human Regular (HumuLIN R VIAL) 10 unit 1X ONCE IV Last administered on 09/11/18at 23:51; Start 09/11/18 at 23:00; Stop 09/11/18 at 23:01; Status DC Dextrose (Dextrose 50%-Water Syringe) 25 gm 1X ONCE IV Last administered on 09/11/18at 22:42; Start 09/11/18 at 23:00; Stop 09/11/18 at 23:01; Status DC Sodium Bicarbonate (Sodium Bicarb Adult 8.4% Syr) 50 meq 1X ONCE IV Last administered on 09/11/18at 23:49; Start 09/11/18 at 23:00; Stop 09/11/18 at 23:01; Status DC Sodium Chloride 1,000 ml @ 1,000 mls/hr 1X ONCE IV Last administered on 09/11/18at 23:50; Start 09/11/18 at 23:00; Stop 09/11/18 at 23:59; Status DC Albuterol Sulfate (Ventolin Neb Soln) 10 mg 1X ONCE CONT NEB Last administered on 09/12/18at 00:30; Start 09/11/18 at 23:00; Stop 09/11/18 at 23:01; Status DC Ceftriaxone Sodium (Rocephin) 1 gm 1X ONCE IVP Last administered on 09/11/18at 22:43; Start 09/11/18 at 23:00; Stop 09/11/18 at 23:01; Status DC Sodium Chloride 1,000 ml @ 1,000 mls/hr 1X ONCE IV Last administered on 09/12/18at 01:00; Start 09/12/18 at 01:00; Stop 09/12/18 at 01:59; Status DC Lorazepam (Ativan Inj) 0.5 mg PRN Q6HRS PRN IV ANXIETY / AGITATION Last administered on 09/12/18at 11:00; Start 09/12/18 at 01:15; Stop 09/13/18 at 08:48; Status DC Ondansetron HCl (Zofran) 4 mg PRN Q6HRS PRN IV NAUSEA/VOMITING 1ST CHOICE; Start 09/12/18 at 01:15; Stop 09/12/18 at 01:22; Status DC Sodium Chloride (Normal Saline Flush) 3 ml QSHIFT PRN IV AFTER MEDS AND BLOOD DRAWS; Start 09/12/18 at 01:15 Sodium Chloride 1,000 ml @ 175 mls/hr Q5H43M IV ; Start 09/12/18 at 01:08; Stop 09/12/18 at 01:23; Status DC Ondansetron HCl (Zofran) 4 mg PRN Q8HRS PRN IV NAUSEA/VOMITING 1ST CHOICE; Start 09/12/18 at 01:15; Stop 09/13/18 at 01:14; Status DC Sodium Chloride 1,000 ml @ 150 mls/hr Q6H40M IV ; Start 09/12/18 at 01:30; Stop 09/12/18 at 18:49; Status DC Morphine Sulfate (Morphine Sulfate) 4 mg PRN Q4HRS PRN IV SEVERE PAIN Last administered on 09/24/18at 08:45; Start 09/12/18 at 09:00 Sodium Bicarbonate (Sodium Bicarb Adult 8.4% Syr) 100 meq 1X ONCE IV Last administered on 09/12/18at 10:02; Start 09/12/18 at 10:00; Stop 09/12/18 at 10:01; Status DC Sodium Chloride 1,000 ml @ 1,000 mls/hr 1X ONCE IV Last administered on 09/12/18at 09:56; Start 09/12/18 at 10:00; Stop 09/12/18 at 10:59; Status DC Lidocaine/Sodium Bicarbonate (Buffered Lidocaine 1%) 3 ml STK-MED ONCE .ROUTE ; Start 09/12/18 at 11:07; Stop 09/12/18 at 11:08; Status DC Calcium Gluconate (Calcium Gluconate) 2,000 mg 1X ONCE IVP Last administered o n 09/12/18at 13:38; Start 09/12/18 at 12:00; Stop 09/12/18 at 12:01; Status DC Ceftriaxone Sodium (Rocephin) 1 gm Q24H IVP Last administered on 09/12/18at 12:49; Start 09/12/18 at 13:00; Stop 09/13/18 at 07:45; Status DC Silver Sulfadiazine (Silvadene) 1 elinor BID TP Last administered on 09/13/18at 10:06; Start 09/12/18 at 13:00; Stop 09/13/18 at 15:04; Status DC Sodium Chloride 1,000 ml @ 1,000 mls/hr 1X ONCE IV Last administered on 09/12/18at 12:47; Start 09/12/18 at 12:45; Stop 09/12/18 at 13:44; Status DC Pantoprazole Sodium (Protonix) 40 mg DAILYAC PO ; Start 09/12/18 at 13:30; Stop 09/12/18 at 19:22; Status DC Polyethylene Glycol (miraLAX PACKET) 17 gm DAILY PO Last administered on 09/24/18at 08:43; Start 09/12/18 at 13:30 Lidocaine/Sodium Bicarbonate (Buffered Lidocaine 1%) 3 ml STK-MED ONCE .ROUTE ; Start 09/12/18 at 13:48; Stop 09/12/18 at 13:49; Status DC Haloperidol Lactate (Haldol Inj) 1 mg PRN Q8HRS PRN IVP AGITATION Last administered on 09/14/18at 07:56; Start 09/12/18 at 14:00 Lorazepam (Ativan Inj) 2 mg PRN Q2HRS PRN IV ANXIETY. Last administered on 09/16/18at 21:22; Start 09/12/18 at 14:00; Stop 09/17/18 at 10:17; Status DC Lidocaine/Sodium Bicarbonate (Buffered Lidocaine 1%) 6 ml 1X ONCE INJ ; Start 09/12/18 at 14:15; Stop 09/12/18 at 14:16; Status DC Dexmedetomidine HCl 200 mcg/ Sodium Chloride 50 ml @ 0 mls/hr CONT PRN IV PER PROTOCOL Last administered on 09/15/18at 10:28; Start 09/12/18 at 14:15; Stop 09/17/18 at 10:17; Status DC Sodium Chloride 500 ml @ 500 mls/hr 1X PRN PRN IV SEE COMMENTS; Start 09/12/18 at 14:15; Stop 09/20/18 at 14:54; Status DC Atropine Sulfate (ATROPINE 0.5mg SYRINGE) 0.5 mg PRN Q5MIN PRN IV SEE COMMENTS; Start 09/12/18 at 14:15 Sodium Chloride 1,000 ml @ 1,000 mls/hr Q1H PRN IV hypotension; Start 09/12/18 at 15:08; Stop 09/12/18 at 21:07; Status DC Diphenhydramine HCl (Benadryl) 25 mg 1X PRN PRN IV ITCHING; Start 09/12/18 at 1 5:15; Stop 09/13/18 at 11:19; Status DC Diphenhydramine HCl (Benadryl) 25 mg 1X PRN PRN IV ITCHING; Start 09/12/18 at 15:15; Stop 09/13/18 at 11:19; Status DC Sodium Chloride 1,000 ml @ 400 mls/hr Q2H30M PRN IV PATENCY; Start 09/12/18 at 15:08; Stop 09/13/18 at 03:07; Status DC Info (PHARMACY MONITORING -- do not chart) 1 each PRN DAILY PRN MC SEE COMMENTS; Start 09/12/18 at 15:15; Stop 09/13/18 at 11:18; Status DC Pantoprazole Sodium (PROTONIX VIAL for IV PUSH) 40 mg DAILYAC IVP Last administered on 09/17/18at 10:04; Start 09/13/18 at 07:30; Stop 09/17/18 at 11:54; Status DC Linezolid (Zyvox) 600 mg BID PO Last administered on 09/19/18at 20:55; Start 09/13/18 at 09:00; Stop 09/19/18 at 22:00; Status DC Ceftriaxone Sodium (Rocephin) 2 gm Q24H IVP Last administered on 09/16/18at 12:14; Start 09/13/18 at 13:00; Stop 09/17/18 at 10:06; Status DC Calcium Gluconate 2000 mg/Dextrose 120 ml @ 220 mls/hr 1X ONCE IV Last administered on 09/13/18at 10:05; Start 09/13/18 at 10:00; Stop 09/13/18 at 10:32; Status DC Sodium Chloride 1,000 ml @ 1,000 mls/hr Q1H PRN IV hypotension; Start 09/13/18 at 11:06; Stop 09/13/18 at 17:05; Status DC Diphenhydramine HCl (Benadryl) 25 mg 1X PRN PRN IV ITCHING; Start 09/13/18 at 11:15; Stop 09/14/18 at 11:14; Status DC Diphenhydramine HCl (Benadryl) 25 mg 1X PRN PRN IV ITCHING; Start 09/13/18 at 11:15; Stop 09/14/18 at 11:14; Status DC Sodium Chloride 1,000 ml @ 400 mls/hr Q2H30M PRN IV PATENCY; Start 09/13/18 at 11:06; Stop 09/13/18 at 23:05; Status DC Info (PHARMACY MONITORING -- do not chart) 1 each PRN DAILY PRN MC SEE COMMENTS; Start 09/13/18 at 11:15; Status Cancel Potassium Chloride 10 meq/ Calcium Chloride 12.5 meq/ Bicarbonate Dialysis Soln w/ out KCl 5,013.9286 ml @ 1,000 mls/hr Q5H1M IV ; Start 09/14/18 at 13:00; Status Cancel Potassium Chloride 20 meq/ Calcium Chloride 12.5 meq/ Bicarbonate Dialysis Soln w/ out KCl 5,018.9286 ml @ 1,500 mls/hr Q3H21M IV ; Start 09/14/18 at 13:00; Stop 09/14/18 at 13:00; Status DC Heparin Sodium (Porcine) (Heparin Sodium) 4,000 unit 1X ONCE IV Last administered on 09/14/18at 19:54; Start 09/14/18 at 12:00; Stop 09/14/18 at 12:11; Status DC Heparin Sodium/ Dextrose 500 ml @ 0 mls/hr CONT PRN IV SEE I/O RECORD Last administered on 09/15/18at 15:05; Start 09/14/18 at 12:00; Stop 09/16/18 at 08:03; Status DC Heparin Sodium (Porcine) (Heparin Sodium) 2,500 unit PRN Q6HRS PRN IV FOR UFH LEVEL LESS THAN 0.2; Start 09/14/18 at 12:00; Stop 09/17/18 at 13:16; Status DC Potassium Chloride 10 meq/ Calcium Chloride 12.5 meq/ Bicarbonate Dialysis Soln w/ out KCl 5,013.9286 ml @ 1,000 mls/hr Q5H1M IV ; Start 09/14/18 at 13:00; Stop 09/14/18 at 13:00; Status DC Potassium Chloride 10 meq/ Bicarbonate Dialysis Soln w/ out KCl 5,005 ml @ 1,000 mls/hr Q5H1M IV ; Start 09/14/18 at 13:00; Stop 09/14/18 at 13:00; Status DC Potassium Chloride 20 meq/ Bicarbonate Dialysis Soln w/ out KCl 5,010 ml @ 1,500 mls/hr Q3H21M IV ; Start 09/14/18 at 13:00; Stop 09/14/18 at 13:00; Status DC Potassium Chloride 10 meq/ Bicarbonate Dialysis Soln w/ out KCl 5,005 ml @ 1,500 mls/hr Q3H21M IV ; Start 09/14/18 at 13:00; Stop 09/14/18 at 13:00; Status DC Potassium Chloride 20 meq/ Bicarbonate Dialysis Soln w/ out KCl 5,010 ml @ 1,000 mls/hr Q5H1M IV Last administered on 09/15/18at 20:43; Start 09/14/18 at 1 3:00; Stop 09/16/18 at 08:03; Status DC Potassium Chloride 20 meq/ Bicarbonate Dialysis Soln w/ out KCl 5,010 ml @ 1,500 mls/hr Q3H21M IV ; Start 09/14/18 at 12:45; Stop 09/14/18 at 12:45; Status DC Potassium Chloride 40 meq/ Bicarbonate Dialysis Soln w/ out KCl 5,020 ml @ 1,500 mls/hr Q3H21M IV ; Start 09/14/18 at 13:00; Stop 09/14/18 at 13:10; Status DC Potassium Chloride 60 meq/ Bicarbonate Dialysis Soln w/ out KCl 5,030 ml @ 1,500 mls/hr Q3H22M IV ; Start 09/14/18 at 13:00; Stop 09/14/18 at 13:07; Status DC Potassium Chloride 30 meq/ Bicarbonate Dialysis Soln w/ out KCl 5,015 ml @ 1,500 mls/hr Q3H21M IV ; Start 09/14/18 at 13:15; Stop 09/14/18 at 18:00; Status DC Potassium Chloride 20 meq/ Bicarbonate Dialysis Soln w/ out KCl 5,010 ml @ 1,500 mls/hr Q3H21M IV Last administered on 09/14/18at 21:06; Start 09/14/18 at 13:10; Stop 09/14/18 at 18:00; Status DC Potassium Chloride 30 meq/ Bicarbonate Dialysis Soln w/ out KCl 5,015 ml @ 1,500 mls/hr Q3H21M IV ; Start 09/14/18 at 18:00; Stop 09/14/18 at 19:10; Status DC Potassium Chloride 20 meq/ Bicarbonate Dialysis Soln w/ out KCl 5,010 ml @ 1,500 mls/hr Q3H21M IV Last administered on 09/16/18at 00:15; Start 09/14/18 at 18:01; Stop 09/16/18 at 08:03; Status DC Potassium Chloride 20 meq/ Bicarbonate Dialysis Soln w/ out KCl 5,010 ml @ 1,500 mls/hr Q3H21M IV Last administered on 09/16/18 00:18; Start 09/14/18 at 20:00; Stop 09/16/18 at 08:03; Status DC Lactobacillus Rhamnosus (Culturelle) 1 cap BID PO Last administered on 09/24/18 08:44; Start 09/16/18 at 21:00 Oxycodone HCl (Roxicodone) 5 mg PRN Q4HRS PRN PO MODERATE TO SEVERE PAIN Last administered on 09/24/18 05:49; Start 09/16/18 at 11:45 Lorazepam (Ativan Inj) 1 mg PRN Q8HRS PRN IV ANXIETY.; Start 09/16/18 at 16:00 Gabapentin (Neurontin) 300 mg QHS PO Last administered on 09/23/18at 21:51; Start 09/16/18 at 21:00 Labetalol HCl (Normodyne Iv Push) 10 mg PRN Q4HRS PRN IVP HYPERTENSION Last administered on 09/17/18 03:33; Start 09/16/18 at 23:30; Stop 09/17/18 at 09:26; Status DC Labetalol HCl (Normodyne Iv Push) 20 mg PRN Q4HRS PRN IVP HYPERTENSION; Start 09/17/18 at 09:30; Stop 09/18/18 at 19:10; Status DC Ondansetron HCl (Zofran) 4 mg PRN Q6HRS PRN IV NAUSEA/VOMITING Last administered on 09/23/18 08:51; Start 09/17/18 at 09:30 Acetaminophen (Tylenol) 500 mg PRN Q6HRS PRN PO MILD PAIN / TEMP; Start 09/17/18 at 09:30 Lidocaine (Lidoderm) 1 patch DAILY TD Last administered on 09/24/18 08:44; Start 09/17/18 at 10:00 Miscellaneous (Lidoderm Patch Removal) 1 ea QHS MC Last administered on 09/23/18at 21:00; Start 09/17/18 at 21:00 Sodium Chloride 1,000 ml @ 1,000 mls/hr Q1H PRN IV hypotension; Start 09/17/18 at 11:26; Stop 09/17/18 at 17:25; Status DC Albumin Human 200 ml @ 200 mls/hr 1X PRN PRN IV Hypotension; Start 09/17/18 at 11:30; Stop 09/17/18 at 17:29; Status DC Sodium Chloride (Normal Saline Flush) 10 ml 1X PRN PRN IV AP catheter pack; Start 09/17/18 at 11:30; Stop 09/18/18 at 11:29; Status DC Sodium Chloride (Normal Saline Flush) 10 ml 1X PRN PRN IV HEATING ELEMENT REPAIRER catheter pack; Start 09/17/18 at 11:30; Stop 09/18/18 at 11:29; Status DC Sodium Chloride 1,000 ml @ 400 mls/hr Q2H30M PRN IV PATENCY; Start 09/17/18 at 11:26; Stop 09/17/18 at 23:25; Status DC Info (PHARMACY MONITORING -- do not chart) 1 each PRN DAILY PRN MC SEE COMMENTS ; Start 09/17/18 at 11:30; Status UNV Info (PHARMACY MONITORING -- do not chart) 1 each PRN DAILY PRN MC SEE COMMENTS; Start 09/17/18 at 11:30; Status Cancel Pantoprazole Sodium (Protonix) 40 mg DAILYAC PO Last administered on 09/24/18at 08:44; Start 09/18/18 at 07:30 Labetalol HCl (Trandate) 100 mg BID PO Last administered on 09/18/18at 19:40; Start 09/18/18 at 09:00; Stop 09/19/18 at 09:13; Status DC Lorazepam (Ativan) 0.5 mg PRN Q8HRS PRN PO ANXIETY / AGITATION; Start 09/18/18 at 09:00 Haloperidol (Haldol) 0.5 mg PRN QID PRN PO AGITATION, 2ND CHOICE; Start 09/18/18 at 09:00; Stop 09/18/18 at 09:03; Status DC Haloperidol Lactate (HALDOL 2mg ORAL CONC) 0.5 mg PRN QID PRN PO AGITATION, 2ND CHOICE; Start 09/18/18 at 09:03 Metoprolol Tartrate (Lopressor Vial) 10 mg PRN Q6HRS PRN IVP HYPERTENSION; Start 09/18/18 at 19:15 Labetalol HCl (Trandate) 200 mg BID PO Last administered on 09/23/18at 21:54; Start 09/19/18 at 10:00 Sodium Chloride 1,000 ml @ 1,000 mls/hr Q1H PRN IV hypotension; Start 09/19/18 at 10:18; Stop 09/19/18 at 16:17; Status DC Diphenhydramine HCl (Benadryl) 25 mg 1X PRN PRN IV ITCHING; Start 09/19/18 at 10:30; Stop 09/20/18 at 10:29; Status DC Diphenhydramine HCl (Benadryl) 25 mg 1X PRN PRN IV ITCHING; Start 09/19/18 at 10:30; Stop 09/20/18 at 10:29; Status DC Sodium Chloride 1,000 ml @ 400 mls/hr Q2H30M PRN IV PATENCY; Start 09/19/18 at 10:18; Stop 09/19/18 at 22:17; Status DC Info (PHARMACY MONITORING -- do not chart) 1 each PRN DAILY PRN MC SEE COMMENTS; Start 09/19/18 at 10:30; Status UNV Midazolam HCl (Versed) 2 mg STK-MED ONCE .ROUTE ; Start 09/20/18 at 08:12; Stop 09/20/18 at 08:13; Status DC Fentanyl Citrate (Fentanyl 2ml Vial) 100 mcg STK-MED ONCE .ROUTE ; Start 09/20/18 at 08:12; Stop 09/20/18 at 08:13; Status DC Lidocaine/ Epinephrine (LIDOCAINE 1%-EPI 1:100,000 Multi-Dose) 20 ml STK-MED ONCE .ROUTE ; Start 09/20/18 at 08:13; Stop 09/20/18 at 08:14; Status DC Cefazolin Sodium 50 ml @ As Directed STK-MED ONCE IV ; Start 09/20/18 at 08:18; Stop 09/20/18 at 08:19; Status DC Cefazolin Sodium 50 ml @ As Directed STK-MED ONCE IV ; Start 09/20/18 at 08:18; Stop 09/20/18 at 08:19; Status DC Midazolam HCl (Versed) 2 mg STK-MED ONCE .ROUTE ; Start 09/20/18 at 08:39; Stop 09/20/18 at 08:40; Status DC Midazolam HCl (Versed) 2 mg 1X ONCE IV Last administered on 09/20/18at 08:45; Start 09/20/18 at 08:45; Stop 09/20/18 at 08:52; Status DC Fentanyl Citrate (Fentanyl 2ml Vial) 100 mcg 1X ONCE IV Last administered on 09/20/18at 08:45; Start 09/20/18 at 08:45; Stop 09/20/18 at 08:52; Status DC Lidocaine/ Epinephrine (LIDOCAINE 1%-EPI 1:100,000 Multi-Dose) 20 ml 1X ONCE IJ Last administered on 09/20/18at 08:45; Start 09/20/18 at 08:45; Stop 09/20/18 at 08:52; Status DC Cefazolin Sodium 50 ml @ 100 mls/hr 1X ONCE IV Last administered on 09/20/18 08:45; Start 09/20/18 at 08:45; Stop 09/20/18 at 09:14; Status DC Cefazolin Sodium 50 ml @ 100 mls/hr 1X ONCE IV Last administered on 09/20/18at 08:45; Start 09/20/18 at 08:45; Stop 09/20/18 at 09:14; Status DC Furosemide (Lasix) 40 mg 1X ONCE IVP Last administered on 09/20/18at 14:44; Start 09/20/18 at 14:30; Stop 09/20/18 at 14:31; Status DC Furosemide (Lasix) 40 mg 1X ONCE IVP Last administered on 09/21/18at 12:49; Start 09/21/18 at 12:30; Stop 09/21/18 at 12:31; Status DC Sodium Chloride 1,000 ml @ 1,000 mls/hr Q1H PRN IV hypotension; Start 09/21/18 at 16:54; Stop 09/21/18 at 22:53; Status DC Sodium Chloride 1,000 ml @ 400 mls/hr Q2H30M PRN IV PATENCY; Start 09/21/18 at 16:54; Stop 09/22/18 at 04:53; Status DC Info (PHARMACY MONITORING -- do not chart) 1 each PRN DAILY PRN MC SEE COMMENTS; Start 09/21/18 at 17:00 Info (PHARMACY MONITORING -- do not chart) 1 each PRN DAILY PRN MC SEE COMMENTS; Start 09/21/18 at 17:00; Status UNV Ceftriaxone Sodium (Rocephin) 1 gm Q24H IVP Last administered on 09/23/18at 08:52; Start 09/22/18 at 10:00; Stop 09/23/18 at 11:21; Status DC Darbepoetin Jacob (ARANESP for DIALYSIS PTS) 60 mcg WEEKLYHS SQ Last administered on 09/22/18at 21:25; Start 09/22/18 at 21:00 Cephalexin HCl (Keflex) 500 mg TID PO Last administered on 09/23/18at 13:19; Start 09/23/18 at 14:00; Stop 09/23/18 at 15:57; Status DC Cephalexin HCl (Keflex) 500 mg Q24H PO ; Start 09/24/18 at 14:00 Zolpidem Tartrate (Ambien) 5 mg PRN QHS PRN PO INSOMNIA; Start 09/24/18 at 09:15 Active Scripts Active Reported Protonix (Pantoprazole Sodium) 20 Mg Tablet.dr 2 Tab PO DAILY Zyprexa (Olanzapine) 20 Mg Tablet 2 Tab PO QHS Buspirone Hcl 30 Mg Tablet 1 Tab PO BID Vitals/I & O Vital Sign - Last 24 Hours 09/23/18 09/23/18 09/23/18 09/23/18 13:19 15:00 17:40 18:22 Temp 97.8 97.8 Pulse 79 Resp 18 B/P (MAP) 119/71 (87) Pulse Ox 92 O2 Delivery Room Air Room Air Room Air Room Air 09/23/18 09/23/18 09/23/18 09/23/18 19:00 20:00 21:54 22:40 Temp 98.6 98.8 98.6 98.8 Pulse 88 93 93 Resp 18 18 B/P (MAP) 131/91 (104) 118/79 126/81 (96) Pulse Ox 93 91 O2 Delivery Room Air Room Air Room Air 09/24/18 09/24/18 09/24/18 09/24/18 03:00 06:49 07:00 08:00 Temp 98.5 98.8 98.5 98.8 Pulse 103 96 Resp 19 20 16 B/P (MAP) 116/75 (89) 108/69 (82) Pulse Ox 96 96 94 O2 Delivery Room Air Room Air Room Air Room Air 09/24/18 09/24/18 09/24/1809/24/19 08:45 09:00 09:15 09:30 Pulse 96 B/P (MAP) 108/69 O2 Delivery Room Air Room Air 09/24/18 09/24/18 10:30 11:00 Temp 98.0 98.0 Pulse 94 Resp 16 B/P (MAP) 132/56 (81) Pulse Ox 88 O2 Delivery Nasal Cannula Room Air O2 Flow Rate 2.0 Intake and Output 09/23/18 09/23/18 09/24/18 14:59 22:59 06:59 Intake Total 120 ml 350 ml Balance 120 ml 350 ml CASPER MONTGOMERY MD Sep 24, 2018 12:18
[2018-09-24] MEDS: CEPHALEXIN 250 MG CAPSULE. PO SCH (13:05)
[2018-09-24] MEDS ORDERED: IV NORMAL SALINE 1000ML BAG 1,000 ML IV PRN ×2 (13:57)
[2018-09-24] MEDS ORDERED: 0.9 % SODIUM CHLORIDE 10 ML DISP.SYRIN. IV PRN ×2 (14:00)
[2018-09-24] MEDS ORDERED: DIALYSIS PATIENT. MC PRN ×2 (14:00)
[2018-09-24] MEDS ORDERED: ALBUMIN HUMAN 25% 200 ML IV PRN (14:00)
--- NOTE | 2018-09-24 14:05 | NUR ---
AMBAR following up with pt dc plan. AMBAR is working to get pt's dialysis set up. Per Kelli with [facility], pt has a tentative chair time at the [facility] location on , . [facility] is faxing over a financial form that will have to be completed by pt and returned. This form will have to be reviewed and approved prior to starting service. SW will await form and provide it to pt. [facility] contact is: Ankit at [phone].
--- NOTE | 2018-09-24 15:00 | NUR ---
SW following up with pt dc plan. SW attempted to meet with pt to provide financial form that must be complete for dialysis set up. Pt was not in room. RN will give pt the form when he returns to room for completion. Once its completed, RN will contact SW. SW will collect form and send it to [facility]. SW will await completion and proceed accordingly.
[2018-09-24 19:00] VITALS: BP 134/65
[2018-09-24] MEDS: PATCH REMOVAL. MC SCH (21:00)
[2018-09-24] MEDS: GABAPENTIN 300 MG CAPSULE. PO SCH (21:19)
[2018-09-24 23:00] VITALS: BP 103/61
[2018-09-25] MEDS: MORPHINE SULFATE 4 MG/ML VIAL. IV PRN (02:18)
[2018-09-25 03:00] VITALS: BP 109/68
[2018-09-25 04:38] LABS: HEMATOCRIT 21.6 % (39.0-53.0); HEMOGLOBIN 7.4 g/dL (13.0-17.5)
[2018-09-25 05:05] LABS: ALBUMIN 2.4 g/dL (3.4-5.0); CALCIUM 8.4 mg/dL (8.5-10.1); CREATININE 7.1 mg/dL (0.7-1.3); GFR 9.1; POTASSIUM 4.5 mmol/L (3.5-5.1)
[2018-09-25 07:00] VITALS: BP 122/65
[2018-09-25] MEDS ORDERED: LABE100T5 PO (07:58)
[2018-09-25] MEDS ORDERED: FOLI1CAP10 PO (07:58)
[2018-09-25] MEDS ORDERED: OXYC5TAB4 PO (07:58)
[2018-09-25] MEDS ORDERED: GABA300C18 PO (07:58)
[2018-09-25] MEDS ORDERED: LIDO700A21 TD (07:58)
[2018-09-25] MEDS ORDERED: CEPH250C PO (07:58)
[2018-09-25] MEDS: LIDOCAINE (700MG/PATCH) PATCH. TD SCH (08:37)
[2018-09-25] MEDS: LACTOBACILLUS RHAMNOSUS GG 1 CAPSULE. PO SCH (08:37)
[2018-09-25] MEDS: PANTOPRAZOLE 40 MG TABLET.DR. PO SCH (08:37)
[2018-09-25] MEDS: LABETALOL HCL 100 MG TABLET. PO SCH (08:37)
[2018-09-25] MEDS: POLYETHYLENE GLYCOL 3350 17 GM PACKET. PO SCH (08:38)
[2018-09-25] MEDS: oxyCODONE IR 5 MG TABLET PO PRN ×2 (08:38→13:57)
--- NOTE | 2018-09-25 08:54 | RAD ---
EXAM: AP View of the chest DATE: 09/24/2018 5:16 PM INDICATION: CHF, dyspnea COMPARISON: 09/16/2018, 09/15/2018 FINDINGS: Heart is mildly enlarged. Mild prominence of pulmonary arterial trunk. Bilateral interstitial prominence with central vascular congestion. No pleural effusion or pneumothorax. No lobar consolidation. IMPRESSION: Mild central vascular congestion with interstitial prominence in conjunction with cardiomegaly may be seen with pulmonary edema. Electronically signed by: Tim Almonte MD (09/25/2018 8:52 AM) [facility]
--- NOTE | 2018-09-25 09:15 | PDOC ---
SUBJECTIVE Subjective Pt complaining of increased pain in his scrotum. Swelling is about the same. Claims ice is helping. OBJECTIVE Objective Physical Exam: General appearance: Alert and Oriented Head: Normocephalic, without obvious abnormality Eyes: conjunctivae/corneas clear. PERRL, EOM's intact. Fundi benign Lungs: Regular respirations, non labored breathing Abdomen: soft, non-tender, lower abdominal edema. Pelvic: + scrotal swelling, increased penile swelling. Extremities: extremities normal, atraumatic, + edema bilateral lower extremities Vital Signs Vital Signs Date Time Temp Pulse Resp B/P (MAP) Pulse Ox O2 Delivery O2 Flow Rate FiO2 09/25/18 08:38 Room Air 09/25/18 08:37 76 122/65 09/25/18 07:00 98.2 76 18 122/65 (84) 93 Room Air 98.2 09/25/18 03:00 98.5 110 16 109/68 (82) 91 98.5 09/24/18 23:00 99.7 98 18 103/61 (75) 95 99.7 09/24/18 21:19 110 134/65 09/24/18 20:00 Room Air 09/24/18 19:00 99.2 110 20 134/65 (88) 96 Nasal Cannula 2.0 99.2 09/24/18 17:44 20 Room Air 09/24/18 17:14 Nasal Cannula 09/24/18 13:06 Nasal Cannula 09/24/18 11:00 98.0 94 16 132/56 (81) 88 Room Air 98.0 09/24/18 10:30 Nasal Cannula 2.0 09/24/18 09:30 I & O Intake and Output 09/25/18 06:59 Intake Total 1560 ml Output Total 300 ml Balance 1260 ml Intake Oral 1560 ml Output Urine Total 300 ml # Voids 1 PHYSICAL EXAM Physical Exam Physical Exam: General appearance: Alert and Oriented Head: Normocephalic, without obvious abnormality Eyes: conjunctivae/corneas clear. PERRL, EOM's intact. Fundi benign Lungs: Regular respirations, non labored breathing Abdomen: soft, non-tender, lower abdominal edema. Pelvic: + scrotal swelling, increased penile swelling. Extremities: extremities normal, atraumatic, + edema bilateral lower extremities ASSESSMENT/PLAN Assessment/Plan Continue ice/scrotal elevation with towels. Continue Keflex Repeat Scrotal US today. Pt may go home today if dialysis chair/time is set up prior to discharge. Ok with Urology A follow up appointment has been arranged for patient to see of [facility] [place]18 at 1120 am. Appointment card and new patient paperwork given to patient. All questions answered. COMMENT Lab Laboratory Tests Test 09/25/18 04:00 Hemoglobin 7.4 g/dL (13.0-17.5) Hematocrit 21.6 % (39.0-53.0) Mean Corpuscular Hemoglobin Concent 34 g/dL (31-37) Sodium Level 136 mmol/L (136-145) Potassium Level 4.5 mmol/L (3.5-5.1) Chloride Level 97 mmol/L (98-107) Carbon Dioxide Level 28 mmol/L (21-32) Anion Gap 11 (6-14) Blood Urea Nitrogen 33 mg/dL (8-26) Creatinine 7.1 mg/dL (0.7-1.3) Estimated GFR (Cockcroft-Gault) 9.1 Glucose Level 111 mg/dL (70-99) Calcium Level 8.4 mg/dL (8.5-10.1) Phosphorus Level 4.0 mg/dL (2.6-4.7) Albumin 2.4 g/dL (3.4-5.0) AARON CALIX APRN Sep 25, 2018 09:15
--- NOTE | 2018-09-25 09:45 | PDOC3 ---
Discharge Summary Visit Information Date of Admission: Sep 12, 2018 Date of Discharge: Sep 25, 2018 Admitting Diagnosis Comment: New ESRD needing outpatient HD set up Hypotension resolved Anasarca Hepatorenal syndrome, status post Hydrocele, good scrotal flow Methamphetamine use Metabolic encephalopathy resolved Alcohol drinker Status post sepsis with hypotension Oliguric renal failure Insomnia Final Diagnosis Problems Medical Problems: (1) Elevated troponin Status: Acute (2) Hepatorenal syndrome Status: Acute (3) Hyperkalemia Status: Acute (4) Hyponatremia Status: Acute (5) Methamphetamine abuse Status: Acute (6) Neurological complaint Status: Acute (7) Rhabdomyolysis Status: Acute (8) Urinary retention Status: Acute (9) Urinary tract infection Status: Acute Brief Hospital Course Allergies Allergies Coded Allergies Type Severity Reaction Last Updated Verified I S O L A T I O N *CONTACT* Allergy Unknown 09/13/18 Yes No Known Medication Allergies Allergy Unknown 09/13/18 Yes Vital Signs Vital Signs Date Time Temp Pulse Resp B/P (MAP) Pulse Ox O2 Delivery O2 Flow Rate FiO2 09/25/18 08:38 Room Air 09/25/18 08:37 76 122/65 09/25/18 07:00 98.2 18 93 98.2 09/24/18 19:00 2.0 Lab Results Laboratory Tests Test 09/24/18 03:10 09/25/18 04:00 White Blood Count 11.7 x10^3/uL (4.0-11.0) Red Blood Count 2.52 x10^6/uL (4.30-5.70) Hemoglobin 7.4 g/dL (13.0-17.5) 7.4 g/dL (13.0-17.5) Hematocrit 21.6 % (39.0-53.0) 21.6 % (39.0-53.0) Mean Corpuscular Volume 86 fL (79-100) Mean Corpuscular Hemoglobin 29 pg (25-35) Mean Corpuscular Hemoglobin Concent 34 g/dL (31-37) 34 g/dL (31-37) Red Cell Distribution Width 14.0 % (11.5-14.5) Platelet Count 169 x10^3/uL (140-400) Sodium Level 126 mmol/L (136-145) 136 mmol/L (136-145) Potassium Level 4.3 mmol/L (3.5-5.1) 4.5 mmol/L (3.5-5.1) Chloride Level 89 mmol/L (98-107) 97 mmol/L (98-107) Carbon Dioxide Level 26 mmol/L (21-32) 28 mmol/L (21-32) Anion Gap 11 (6-14) 11 (6-14) Blood Urea Nitrogen 46 mg/dL (8-26) 33 mg/dL (8-26) Creatinine 8.9 mg/dL (0.7-1.3) 7.1 mg/dL (0.7-1.3) Estimated GFR (Cockcroft-Gault) 7.0 9.1 Glucose Level 111 mg/dL (70-99) 111 mg/dL (70-99) Calcium Level 8.3 mg/dL (8.5-10.1) 8.4 mg/dL (8.5-10.1) Phosphorus Level 4.5 mg/dL (2.6-4.7) 4.0 mg/dL (2.6-4.7) Creatine Kinase 909 U/L (39-308) Albumin 2.3 g/dL (3.4-5.0) 2.4 g/dL (3.4-5.0) Laboratory Tests Test 09/25/18 04:00 Hemoglobin 7.4 g/dL (13.0-17.5) Hematocrit 21.6 % (39.0-53.0) Mean Corpuscular Hemoglobin Concent 34 g/dL (31-37) Sodium Level 136 mmol/L (136-145) Potassium Level 4.5 mmol/L (3.5-5.1) Chloride Level 97 mmol/L (98-107) Carbon Dioxide Level 28 mmol/L (21-32) Anion Gap 11 (6-14) Blood Urea Nitrogen 33 mg/dL (8-26) Creatinine 7.1 mg/dL (0.7-1.3) Estimated GFR (Cockcroft-Gault) 9.1 Glucose Level 111 mg/dL (70-99) Calcium Level 8.4 mg/dL (8.5-10.1) Phosphorus Level 4.0 mg/dL (2.6-4.7) Albumin 2.4 g/dL (3.4-5.0) Brief Hospital Course Mr. Driscoll is a 28 old male who stayed 2 weeks with us, he came in and renal failure oliguric with hyperkalemia and metabolic acidosis needing ICU and now unfortunately did not recover and is a new ESRD and we have set up dialysis TTH S I believe is the schedule, He has history of recreational drug use, methamphetamine abuse, likes narcotic. He had some hepatorenal syndrome. His most pressing issue is anasarca they try to get fluid off 4 L during dialysis He has anasarca with albumin 2.3 and is most affected region at his scrotum and penile area. Ultrasound of hydrocele, comanagement with urology. Advised to get fluid off during HD< elevate the scrotum, may be cold compress. But that is all we could do per patient is oliguric and insomnia. I have done meds, written scripts that are new to him. No PT needs. Will discharge today once outpatient HD has been set up Discharge Information Condition at Discharge: Improved, Stable Follow Up: Weeks (pcp 4 weeks or renal MD - new esrd) Disposition/Orders: D/C to Home Scheduled Buspirone Hcl (Buspirone Hcl) 30 Mg Tablet, 1 TAB PO BID for anxiety, #60 (Reported) Entered as Reported by: KALINA BRITO on 09/12/181602 Last Action: New Order on 09/12/181602 by KALINA BRITO Cephalexin (Cephalexin) 250 Mg Capsule, 500 MG PO Q24H for scrotal cellulitis, #7 Prescribed by: DEEPA QUINTERO on 09/25/18757 Folic Acid/Vitamin B Comp W-C (Renal Caps Softgel) 1 Mg Capsule, 1 CAP PO DAILY for esrd, #30 Ref 5 Prescribed by: DEEPA QUINTERO on 09/25/18757 Gabapentin (Gabapentin) 300 Mg Capsule, 300 MG PO QHS for neurpathy, #30 Prescribed by: DEEPA QUINTERO on 09/25/18757 Labetalol Hcl (Labetalol Hcl) 100 Mg Tablet, 200 MG PO BID for htn, #60 Prescribed by: DEEPA QUINTERO on 09/25/18757 Lidocaine (Lidocaine PATCH ) 1 Each Adh..patch, 1 PATCH TD DAILY for pain, #14 Prescribed by: DEEPA QUINTERO on 09/25/18757 Olanzapine (Zyprexa) 20 Mg Tablet, 2 TAB PO QHS for anxiety, #30 (Reported) Entered as Reported by: KALINA BRITO on 09/12/181602 Last Action: New Order on 09/12/181602 by KALINA BRITO Pantoprazole Sodium (Protonix) 20 Mg Tablet.dr, 2 TAB PO DAILY for reflux, #30 (Reported) Entered as Reported by: KALINA BRITO on 09/12/181602 Last Action: New Order on 09/12/181602 by KALINA BRITO Scheduled PRN Oxycodone Hcl (Oxycodone Hcl Immed.release ) 5 Mg Tablet, 5 MG PO PRN Q4HRS PRN for MODERATE TO SEVERE PAIN, #20 Prescribed by: DEEPA QUINTERO on 09/25/18 0758 DEEPA QUINTERO MD Sep 25, 2018 09:45
--- NOTE | 2018-09-25 10:22 | PDOC ---
PULMONARY PROGRESS NOTES Subjective feels better off O2 Vitals Vital Signs Date Time Temp Pulse Resp B/P (MAP) Pulse Ox O2 Delivery O2 Flow Rate FiO2 09/25/18 09:45 Room Air 09/25/18 08:37 76 122/65 09/25/18 07:00 98.2 18 93 98.2 09/24/18 19:00 2.0 General: No acute distress Lungs: Clear Cardiovascular: S1, S2 Abdomen: Soft, Non-tender Extremities: Other (1+edema,) Skin: Warm Labs Laboratory Tests Test 09/24/18 03:10 09/25/18 04:00 White Blood Count 11.7 x10^3/uL (4.0-11.0) Red Blood Count 2.52 x10^6/uL (4.30-5.70) Hemoglobin 7.4 g/dL (13.0-17.5) 7.4 g/dL (13.0-17.5) Hematocrit 21.6 % (39.0-53.0) 21.6 % (39.0-53.0) Mean Corpuscular Volume 86 fL (79-100) Mean Corpuscular Hemoglobin 29 pg (25-35) Mean Corpuscular Hemoglobin Concent 34 g/dL (31-37) 34 g/dL (31-37) Red Cell Distribution Width 14.0 % (11.5-14.5) Platelet Count 169 x10^3/uL (140-400) Sodium Level 126 mmol/L (136-145) 136 mmol/L (136-145) Potassium Level 4.3 mmol/L (3.5-5.1) 4.5 mmol/L (3.5-5.1) Chloride Level 89 mmol/L (98-107) 97 mmol/L (98-107) Carbon Dioxide Level 26 mmol/L (21-32) 28 mmol/L (21-32) Anion Gap 11 (6-14) 11 (6-14) Blood Urea Nitrogen 46 mg/dL (8-26) 33 mg/dL (8-26) Creatinine 8.9 mg/dL (0.7-1.3) 7.1 mg/dL (0.7-1.3) Estimated GFR (Cockcroft-Gault) 7.0 9.1 Glucose Level 111 mg/dL (70-99) 111 mg/dL (70-99) Calcium Level 8.3 mg/dL (8.5-10.1) 8.4 mg/dL (8.5-10.1) Phosphorus Level 4.5 mg/dL (2.6-4.7) 4.0 mg/dL (2.6-4.7) Creatine Kinase 909 U/L (39-308) Albumin 2.3 g/dL (3.4-5.0) 2.4 g/dL (3.4-5.0) Laboratory Tests Test 09/25/18 04:00 Hemoglobin 7.4 g/dL (13.0-17.5) Hematocrit 21.6 % (39.0-53.0) Mean Corpuscular Hemoglobin Concent 34 g/dL (31-37) Sodium Level 136 mmol/L (136-145) Potassium Level 4.5 mmol/L (3.5-5.1) Chloride Level 97 mmol/L (98-107) Carbon Dioxide Level 28 mmol/L (21-32) Anion Gap 11 (6-14) Blood Urea Nitrogen 33 mg/dL (8-26) Creatinine 7.1 mg/dL (0.7-1.3) Estimated GFR (Cockcroft-Gault) 9.1 Glucose Level 111 mg/dL (70-99) Calcium Level 8.4 mg/dL (8.5-10.1) Phosphorus Level 4.0 mg/dL (2.6-4.7) Albumin 2.4 g/dL (3.4-5.0) Medications Active Scripts Medications Dose Route/Sig Max Daily Dose Days Date Category Protonix (Pantoprazole Sodium) 20 Mg Tablet.dr 2 Tab PO DAILY 09/12/18 Reported Zyprexa (Olanzapine) 20 Mg Tablet 2 Tab PO QHS 09/12/18 Reported Buspirone Hcl 30 Mg Tablet 1 Tab PO BID 09/12/18 Reported Comments 09/24, cxr reviewed CHF Impression . 1. Status post fall with acute rhabdomyolysis with markedly high CPKs and acute renal failure. improved 2. Acute kidney injury secondary to rhabdomyolysis. 3. Severe metabolic acidosis secondary to acute kidney injury poa, resolved. 4. Hyponatremia.improving 5. Moderate protein-calorie malnutrition. 6. Leukocytosis, likely reactive. 7. Dyspnea 09/24 due to CHF, better post HD, on RA Plan . 1. clinically better post HD 2. Follow Renal's recommendation. 3. HD with UF 4. will sign off EITAN HAGAN MD Sep 25, 2018 10:21
[2018-09-25 11:00] VITALS: BP 120/64
--- NOTE | 2018-09-25 11:38 | NUR ---
SS following up with discharge planning. Discharge orders received. Pt completed uninsurability questionnaire for [facility] and SS faxed to [facility] Admissions, ; fax [phone]. Pt reported that he needed homeless snf. SS contacted [facility]eless [facility] hotline. Bed avaialable at [facility] at [facility], [address] [facility], [phone]. Pt able to admit to homeless snf between 1500 and 1830. 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
--- NOTE | 2018-09-25 12:09 | PDOC ---
Renal-Progress Notes Subjective Notes Notes AMBULATING BETTER History of Present Illness Hx of present illness STABLE Vitals Vitals Vital Signs Date Time Temp Pulse Resp B/P (MAP) Pulse Ox O2 Delivery O2 Flow Rate FiO2 09/25/18 11:00 98.0 74 18 120/64 (82) 94 Room Air 98.0 09/24/18 19:00 2.0 Weight Weight [ ] I.O. Intake and Output Intake and Output 09/25/18 07:00 Intake Total 1560 ml Output Total 300 ml Balance 1260 ml Intake Oral 1560 ml Output Urine Total 300 ml # Voids 1 Labs Labs Laboratory Tests Test 09/25/18 04:00 Hemoglobin 7.4 g/dL (13.0-17.5) Hematocrit 21.6 % (39.0-53.0) Mean Corpuscular Hemoglobin Concent 34 g/dL (31-37) Sodium Level 136 mmol/L (136-145) Potassium Level 4.5 mmol/L (3.5-5.1) Chloride Level 97 mmol/L (98-107) Carbon Dioxide Level 28 mmol/L (21-32) Anion Gap 11 (6-14) Blood Urea Nitrogen 33 mg/dL (8-26) Creatinine 7.1 mg/dL (0.7-1.3) Estimated GFR (Cockcroft-Gault) 9.1 Glucose Level 111 mg/dL (70-99) Calcium Level 8.4 mg/dL (8.5-10.1) Phosphorus Level 4.0 mg/dL (2.6-4.7) Albumin 2.4 g/dL (3.4-5.0) Micro Micro Microbiology 09/12/18 Blood Culture - Final, Complete NO GROWTH AFTER 5 DAYS 09/12/18 CSF Gram Stain - Final, Complete 09/11/18 Urine Culture - Final, Complete 09/11/18 Urine Culture Result 1 ([place]) - Final, Complete Review of Systems Constitutional: yes: weakness, alert, oriented Ears/Nose/Throat: Yes: no symptom reported Eyes: Yes: no symptom reported Pulmonary: Yes no symptom reported Cardiovascular: Yes no symptom reported Gastrointestional: Yes: no symptom reported Genitourinary: Yes: no symptom reported Skin: Yes no symptom reported Psychiatric/Neurological: Yes: no symptom reported Endocrine: Yes: no symptom reported Physical Exam Skin: warm Respiratory: decreased breath sounds Heart: S1S2, RRR Abdomen: soft, bowel sounds present Genitourinary: bladder flat Extremities: pulses present Neurology: alert, oriented Assessment Assessment IMP CARO DUE RHABDO-NO RECOVERY YET-ANURIC RHABDOMYOLYSIS-CPK OF OVER 100,000 AT [facility]-NOW 1440 URINARY RETENTION SCROTAL EDEMA PLAN ARANESP WILL NEED TO HAVE SW SET UP OP HD HD TOMORROW UF TO [facility] AND [facility] HAS SOME CHANCE OF RECOVERY BUT WILL PROB TAKE WEEKS IF NOT MONTHS D/C PLANS IN THE WORKS LISA MCGOVERN MD Sep 25, 2018 12:09
--- NOTE | 2018-09-25 12:19 | PDOC ---
PROGRESS NOTES Assessment Problems Medical Problems: (1) Elevated troponin Status: Acute (2) Hepatorenal syndrome Status: Acute (3) Hyperkalemia Status: Acute (4) Hyponatremia Status: Acute (5) Methamphetamine abuse Status: Acute (6) Neurological complaint Status: Acute (7) Rhabdomyolysis Status: Acute (8) Urinary retention Status: Acute (9) Urinary tract infection Status: Acute Bilateral leg weakness and numbness, component of factitious disorder But he has rhabdomyolysis, edema of the psoas muscle on the MRI, lumbar epidural lipomatosis Methamphetamine abuse. Scrotal edema Patient continuing to improve He requests to stay 1-2 more days Plan Continue supportive care for rhabdomyolysis, renal insufficiency, and other medical problems. He is getting dialysis Urology saw I don't think neurosurgery has to see him again given marked improvement Physical and occupational therapy. Follow-up with neurology as needed Subjective Complains of scrotal and leg pain, back pain Objective Vital Signs Date Time Temp Pulse Resp B/P (MAP) Pulse Ox O2 Delivery O2 Flow Rate FiO2 09/25/18 11:00 98.0 74 18 120/64 (82) 94 Room Air 98.0 09/24/18 19:00 2.0 Intake and Output 09/25/18 07:00 Intake Total 1560 ml Output Total 300 ml Balance 1260 ml Intake Oral 1560 ml Output Urine Total 300 ml # Voids 1 PHYSICAL EXAM Alert. Oriented to time, place and person. PERRL. EOMI. CN: no focal findings. Muscle tone: normal. Muscle strength: 5/5 arms, 4/5 legs DTR: 2+ Plantar reflex: flexor Gait: Actually walks fairly well with his walker, nurse observed him walking independently of walker. Sensory exam: no abnormal findings. No cerebellar signs elicited. Review of Relevant I have reviewed the following items ashlie (where applicable) has been applied. Labs Laboratory Tests Test 09/24/18 03:10 09/25/18 04:00 White Blood Count 11.7 x10^3/uL (4.0-11.0) Red Blood Count 2.52 x10^6/uL (4.30-5.70) Hemoglobin 7.4 g/dL (13.0-17.5) 7.4 g/dL (13.0-17.5) Hematocrit 21.6 % (39.0-53.0) 21.6 % (39.0-53.0) Mean Corpuscular Volume 86 fL (79-100) Mean Corpuscular Hemoglobin 29 pg (25-35) Mean Corpuscular Hemoglobin Concent 34 g/dL (31-37) 34 g/dL (31-37) Red Cell Distribution Width 14.0 % (11.5-14.5) Platelet Count 169 x10^3/uL (140-400) Sodium Level 126 mmol/L (136-145) 136 mmol/L (136-145) Potassium Level 4.3 mmol/L (3.5-5.1) 4.5 mmol/L (3.5-5.1) Chloride Level 89 mmol/L (98-107) 97 mmol/L (98-107) Carbon Dioxide Level 26 mmol/L (21-32) 28 mmol/L (21-32) Anion Gap 11 (6-14) 11 (6-14) Blood Urea Nitrogen 46 mg/dL (8-26) 33 mg/dL (8-26) Creatinine 8.9 mg/dL (0.7-1.3) 7.1 mg/dL (0.7-1.3) Estimated GFR (Cockcroft-Gault) 7.0 9.1 Glucose Level 111 mg/dL (70-99) 111 mg/dL (70-99) Calcium Level 8.3 mg/dL (8.5-10.1) 8.4 mg/dL (8.5-10.1) Phosphorus Level 4.5 mg/dL (2.6-4.7) 4.0 mg/dL (2.6-4.7) Creatine Kinase 909 U/L (39-308) Albumin 2.3 g/dL (3.4-5.0) 2.4 g/dL (3.4-5.0) Laboratory Tests Test 09/25/18 04:00 Hemoglobin 7.4 g/dL (13.0-17.5) Hematocrit 21.6 % (39.0-53.0) Mean Corpuscular Hemoglobin Concent 34 g/dL (31-37) Sodium Level 136 mmol/L (136-145) Potassium Level 4.5 mmol/L (3.5-5.1) Chloride Level 97 mmol/L (98-107) Carbon Dioxide Level 28 mmol/L (21-32) Anion Gap 11 (6-14) Blood Urea Nitrogen 33 mg/dL (8-26) Creatinine 7.1 mg/dL (0.7-1.3) Estimated GFR (Cockcroft-Gault) 9.1 Glucose Level 111 mg/dL (70-99) Calcium Level 8.4 mg/dL (8.5-10.1) Phosphorus Level 4.0 mg/dL (2.6-4.7) Albumin 2.4 g/dL (3.4-5.0) Microbiology 09/12/18 Blood Culture - Final, Complete NO GROWTH AFTER 5 DAYS 09/12/18 CSF Gram Stain - Final, Complete 09/11/18 Urine Culture - Final, Complete 09/11/18 Urine Culture Result 1 ([place]) - Final, Complete Medications Current Medications Morphine Sulfate (Morphine Sulfate) 4 mg 1X ONCE IV Last administered on 09/11/18at 21:20; Start 09/11/18 at 21:30; Stop 09/11/18 at 21:31; Status DC Sodium Chloride 1,000 ml @ 1,000 mls/hr 1X ONCE IV Last administered on 09/11/18at 22:30; Start 09/11/18 at 22:30; Stop 09/11/18 at 23:29; Status DC Calcium Gluconate (Calcium Gluconate) 1,000 mg 1X ONCE IVP Last administered on 09/11/18at 22:43; Start 09/11/18 at 23:00; Stop 09/11/18 at 23:01; Status DC Insulin Human Regular (HumuLIN R VIAL) 10 unit 1X ONCE IV Last administered on 09/11/18at 23:51; Start 09/11/18 at 23:00; Stop 09/11/18 at 23:01; Status DC Dextrose (Dextrose 50%-Water Syringe) 25 gm 1X ONCE IV Last administered on 09/11/18at 22:42; Start 09/11/18 at 23:00; Stop 09/11/18 at 23:01; Status DC Sodium Bicarbonate (Sodium Bicarb Adult 8.4% Syr) 50 meq 1X ONCE IV Last administered on 09/11/18at 23:49; Start 09/11/18 at 23:00; Stop 09/11/18 at 23:01; Status DC Sodium Chloride 1,000 ml @ 1,000 mls/hr 1X ONCE IV Last administered on 09/11/18at 23:50; Start 09/11/18 at 23:00; Stop 09/11/18 at 23:59; Status DC Albuterol Sulfate (Ventolin Neb Soln) 10 mg 1X ONCE CONT NEB Last administered on 09/12/18at 00:30; Start 09/11/18 at 23:00; Stop 09/11/18 at 23:01; Status DC Ceftriaxone Sodium (Rocephin) 1 gm 1X ONCE IVP Last administered on 09/11/18at 22:43; Start 09/11/18 at 23:00; Stop 09/11/18 at 23:01; Status DC Sodium Chloride 1,000 ml @ 1,000 mls/hr 1X ONCE IV Last administered on 09/12/18at 01:00; Start 09/12/18 at 01:00; Stop 09/12/18 at 01:59; Status DC Lorazepam (Ativan Inj) 0.5 mg PRN Q6HRS PRN IV ANXIETY / AGITATION Last administered on 09/12/18at 11:00; Start 09/12/18 at 01:15; Stop 09/13/18 at 08:48; Status DC Ondansetron HCl (Zofran) 4 mg PRN Q6HRS PRN IV NAUSEA/VOMITING 1ST CHOICE; Start 09/12/18 at 01:15; Stop 09/12/18 at 01:22; Status DC Sodium Chloride (Normal Saline Flush) 3 ml QSHIFT PRN IV AFTER MEDS AND BLOOD DRAWS; Start 09/12/18 at 01:15 Sodium Chloride 1,000 ml @ 175 mls/hr Q5H43M IV ; Start 09/12/18 at 01:08; Stop 09/12/18 at 01:23; Status DC Ondansetron HCl (Zofran) 4 mg PRN Q8HRS PRN IV NAUSEA/VOMITING 1ST CHOICE; St art 09/12/18 at 01:15; Stop 09/13/18 at 01:14; Status DC Sodium Chloride 1,000 ml @ 150 mls/hr Q6H40M IV ; Start 09/12/18 at 01:30; Stop 09/12/18 at 18:49; Status DC Morphine Sulfate (Morphine Sulfate) 4 mg PRN Q4HRS PRN IV SEVERE PAIN Last administered on 09/25/18at 02:18; Start 09/12/18 at 09:00 Sodium Bicarbonate (Sodium Bicarb Adult 8.4% Syr) 100 meq 1X ONCE IV Last administered on 09/12/18at 10:02; Start 09/12/18 at 10:00; Stop 09/12/18 at 10:01; Status DC Sodium Chloride 1,000 ml @ 1,000 mls/hr 1X ONCE IV Last administered on 09/12/18at 09:56; Start 09/12/18 at 10:00; Stop 09/12/18 at 10:59; Status DC Lidocaine/Sodium Bicarbonate (Buffered Lidocaine 1%) 3 ml STK-MED ONCE .ROUTE ; Start 09/12/18 at 11:07; Stop 09/12/18 at 11:08; Status DC Calcium Gluconate (Calcium Gluconate) 2,000 mg 1X ONCE IVP Last administered on 09/12/18at 13:38; Start 09/12/18 at 12:00; Stop 09/12/18 at 12:01; Status DC Ceftriaxone Sodium (Rocephin) 1 gm Q24H IVP Last administered on 09/12/18at 12:49; Start 09/12/18 at 13:00; Stop 09/13/18 at 07:45; Status DC Silver Sulfadiazine (Silvadene) 1 elinor BID TP Last administered on 09/13/18at 10:06; Start 09/12/18 at 13:00; Stop 09/13/18 at 15:04; Status DC Sodium Chloride 1,000 ml @ 1,000 mls/hr 1X ONCE IV Last administered on 09/12/18at 12:47; Start 09/12/18 at 12:45; Stop 09/12/18 at 13:44; Status DC Pantoprazole Sodium (Protonix) 40 mg DAILYAC PO ; Start 09/12/18 at 13:30; Stop 09/12/18 at 19:22; Status DC Polyethylene Glycol (miraLAX PACKET) 17 gm DAILY PO Last administered on 09/25/18at 08:38; Start 09/12/18 at 13:30 Lidocaine/Sodium Bicarbonate (Buffered Lidocaine 1%) 3 ml STK-MED ONCE .ROUTE ; Start 09/12/18 at 13:48; Stop 09/12/18 at 13:49; Status DC Haloperidol Lactate (Haldol Inj) 1 mg PRN Q8HRS PRN IVP AGITATION Last administered on 09/14/18at 07:56; Start 09/12/18 at 14:00 Lorazepam (Ativan Inj) 2 mg PRN Q2HRS PRN IV ANXIETY. Last administered on 09/16/18at 21:22; Start 09/12/18 at 14:00; Stop 09/17/18 at 10:17; Status DC Lidocaine/Sodium Bicarbonate (Buffered Lidocaine 1%) 6 ml 1X ONCE INJ ; Start 09/12/18 at 14:15; Stop 09/12/18 at 14:16; Status DC Dexmedetomidine HCl 200 mcg/ Sodium Chloride 50 ml @ 0 mls/hr CONT PRN IV PER PROTOCOL Last administered on 09/15/18at 10:28; Start 09/12/18 at 14:15; Stop 09/17/18 at 10:17; Status DC Sodium Chloride 500 ml @ 500 mls/hr 1X PRN PRN IV SEE COMMENTS; Start 09/12/18 at 14:15; Stop 09/20/18 at 14:54; Status DC Atropine Sulfate (ATROPINE 0.5mg SYRINGE) 0.5 mg PRN Q5MIN PRN IV SEE COMMENTS; Start 09/12/18 at 14:15 Sodium Chloride 1,000 ml @ 1,000 mls/hr Q1H PRN IV hypotension; Start 09/12/18 at 15:08; Stop 09/12/18 at 21:07; Status DC Diphenhydramine HCl (Benadryl) 25 mg 1X PRN PRN IV ITCHING; Start 09/12/18 at 15:15; Stop 09/13/18 at 11:19; Status DC Diphenhydramine HCl (Benadryl) 25 mg 1X PRN PRN IV ITCHING; Start 09/12/18 at 15:15; Stop 09/13/18 at 11:19; Status DC Sodium Chloride 1,000 ml @ 400 mls/hr Q2H30M PRN IV PATENCY; Start 09/12/18 at 15:08; Stop 09/13/18 at 03:07; Status DC Info (PHARMACY MONITORING -- do not chart) 1 each PRN DAILY PRN MC SEE COMMENTS; Start 09/12/18 at 15:15; Stop 09/13/18 at 11:18; Status DC Pantoprazole Sodium (PROTONIX VIAL for IV PUSH) 40 mg DAILYAC IVP Last administered on 09/17/18at 10:04; Start 09/13/18 at 07:30; Stop 09/17/18 at 11:54; Status DC Linezolid (Zyvox) 600 mg BID PO Last administered on 09/19/18at 20:55; Start 09/13/18 at 09:00; Stop 09/19/18 at 22:00; Status DC Ceftriaxone Sodium (Rocephin) 2 gm Q24H IVP Last administered on 09/16/18at 12:14; Start 09/13/18 at 13:00; Stop 09/17/18 at 10:06; Status DC Calcium Gluconate 2000 mg/Dextrose 120 ml @ 220 mls/hr 1X ONCE IV Last administered on 09/13/18at 10:05; Start 09/13/18 at 10:00; Stop 09/13/18 at 10:32; Status DC Sodium Chloride 1,000 ml @ 1,000 mls/hr Q1H PRN IV hypotension; Start 09/13/18 at 11:06; Stop 09/13/18 at 17:05; Status DC Diphenhydramine HCl (Benadryl) 25 mg 1X PRN PRN IV ITCHING; Start 09/13/18 at 11:15; Stop 09/14/18 at 11:14; Status DC Diphenhydramine HCl (Benadryl) 25 mg 1X PRN PRN IV ITCHING; Start 09/13/18 at 11:15; Stop 09/14/18 at 11:14; Status DC Sodium Chloride 1,000 ml @ 400 mls/hr Q2H30M PRN IV PATENCY; Start 09/13/18 at 11:06; Stop 09/13/18 at 23:05; Status DC Info (PHARMACY MONITORING -- do not chart) 1 each PRN DAILY PRN MC SEE COMMENTS; Start 09/13/18 at 11:15; Status Cancel Potassium Chloride 10 meq/ Calcium Chloride 12.5 meq/ Bicarbonate Dialysis Soln w/ out KCl 5,013.9286 ml @ 1,000 mls/hr Q5H1M IV ; Start 09/14/18 at 13:00; Status Cancel Potassium Chloride 20 meq/ Calcium Chloride 12.5 meq/ Bicarbonate Dialysis Soln w/ out KCl 5,018.9286 ml @ 1,500 mls/hr Q3H21M IV ; Start 09/14/18 at 13:00; St op 09/14/18 at 13:00; Status DC Heparin Sodium (Porcine) (Heparin Sodium) 4,000 unit 1X ONCE IV Last administered on 09/14/18at 19:54; Start 09/14/18 at 12:00; Stop 09/14/18 at 12:11; Status DC Heparin Sodium/ Dextrose 500 ml @ 0 mls/hr CONT PRN IV SEE I/O RECORD Last administered on 09/15/18at 15:05; Start 09/14/18 at 12:00; Stop 09/16/18 at 08:03; Status DC Heparin Sodium (Porcine) (Heparin Sodium) 2,500 unit PRN Q6HRS PRN IV FOR UFH LEVEL LESS THAN 0.2; Start 09/14/18 at 12:00; Stop 09/17/18 at 13:16; Status DC Potassium Chloride 10 meq/ Calcium Chloride 12.5 meq/ Bicarbonate Dialysis Soln w/ out KCl 5,013.9286 ml @ 1,000 mls/hr Q5H1M IV ; Start 09/14/18 at 13:00; Stop 09/14/18 at 13:00; Status DC Potassium Chloride 10 meq/ Bicarbonate Dialysis Soln w/ out KCl 5,005 ml @ 1,000 mls/hr Q5H1M IV ; Start 09/14/18 at 13:00; Stop 09/14/18 at 13:00; Status DC Potassium Chloride 20 meq/ Bicarbonate Dialysis Soln w/ out KCl 5,010 ml @ 1,500 mls/hr Q3H21M IV ; Start 09/14/18 at 13:00; Stop 09/14/18 at 13:00; Status DC Potassium Chloride 10 meq/ Bicarbonate Dialysis Soln w/ out KCl 5,005 ml @ 1,500 mls/hr Q3H21M IV ; Start 09/14/18 at 13:00; Stop 09/14/18 at 13:00; Status DC Potassium Chloride 20 meq/ Bicarbonate Dialysis Soln w/ out KCl 5,010 ml @ 1,000 mls/hr Q5H1M IV Last administered on 09/15/18at 20:43; Start 09/14/18 at 13:00; Stop 09/16/18 at 08:03; Status DC Potassium Chloride 20 meq/ Bicarbonate Dialysis Soln w/ out KCl 5,010 ml @ 1,500 mls/hr Q3H21M IV ; Start 09/14/18 at 12:45; Stop 09/14/18 at 12:45; Status DC Potassium Chloride 40 meq/ Bicarbonate Dialysis Soln w/ out KCl 5,020 ml @ 1,500 mls/hr Q3H21M IV ; Start 09/14/18 at 13:00; Stop 09/14/18 at 13:10; Status DC Potassium Chloride 60 meq/ Bicarbonate Dialysis Soln w/ out KCl 5,030 ml @ 1,500 mls/hr Q3H22M IV ; Start 09/14/18 at 13:00; Stop 09/14/18 at 13:07; Status DC Potassium Chloride 30 meq/ Bicarbonate Dialysis Soln w/ out KCl 5,015 ml @ 1,500 mls/hr Q3H21M IV ; Start 09/14/18 at 13:15; Stop 09/14/18 at 18:00; Status DC Potassium Chloride 20 meq/ Bicarbonate Dialysis Soln w/ out KCl 5,010 ml @ 1,500 mls/hr Q3H21M IV Last administered on 09/14/18at 21:06; Start 09/14/18 at 13:10; Stop 09/14/18 at 18:00; Status DC Potassium Chloride 30 meq/ Bicarbonate Dialysis Soln w/ out KCl 5,015 ml @ 1,500 mls/hr Q3H21M IV ; Start 09/14/18 at 18:00; Stop 09/14/18 at 19:10; Status DC Potassium Chloride 20 meq/ Bicarbonate Dialysis Soln w/ out KCl 5,010 ml @ 1,500 mls/hr Q3H21M IV Last administered on 09/16/18at 00:15; Start 09/14/18 at 18:01; Stop 09/16/18 at 08:03; Status DC Potassium Chloride 20 meq/ Bicarbonate Dialysis Soln w/ out KCl 5,010 ml @ 1,500 mls/hr Q3H21M IV Last administered on 09/16/18at 00:18; Start 09/14/18 at 20:00; Stop 09/16/18 at 08:03; Status DC Lactobacillus Rhamnosus (Culturelle) 1 cap BID PO Last administered on 09/25/18 08:37; Start 09/16/18 at 21:00 Oxycodone HCl (Roxicodone) 5 mg PRN Q4HRS PRN PO MODERATE TO SEVERE PAIN Last administered on 09/25/18at 08:38; Start 09/16/18 at 11:45 Lorazepam (Ativan Inj) 1 mg PRN Q8HRS PRN IV ANXIETY.; Start 09/16/18 at 16:00 Gabapentin (Neurontin) 300 mg QHS PO Last administered on 09/24/18 21:19; Start 09/16/18 at 21:00 Labetalol HCl (Normodyne Iv Push) 10 mg PRN Q4HRS PRN IVP HYPERTENSION Last administered on 09/17/18 03:33; Start 09/16/18 at 23:30; Stop 09/17/18 at 09:26; Status DC Labetalol HCl (Normodyne Iv Push) 20 mg PRN Q4HRS PRN IVP HYPERTENSION; Start 09/17/18 at 09:30; Stop 09/18/18 at 19:10; Status DC Ondansetron HCl (Zofran) 4 mg PRN Q6HRS PRN IV NAUSEA/VOMITING Last administered on 09/23/18at 08:51; Start 09/17/18 at 09:30 Acetaminophen (Tylenol) 500 mg PRN Q6HRS PRN PO MILD PAIN / TEMP; Start 09/17/18 at 09:30 Lidocaine (Lidoderm) 1 patch DAILY TD Last administered on 09/25/18at 08:37; Start 09/17/18 at 10:00 Miscellaneous (Lidoderm Patch Removal) 1 ea QHS MC Last administered on 09/23/18at 21:00; Start 09/17/18 at 21:00 Sodium Chloride 1,000 ml @ 1,000 mls/hr Q1H PRN IV hypotension; Start 09/17/18 at 11:26; Stop 09/17/18 at 17:25; Status DC Albumin Human 200 ml @ 200 mls/hr 1X PRN PRN IV Hypotension; Start 09/17/18 at 11:30; Stop 09/17/18 at 17:29; Status DC Sodium Chloride (Normal Saline Flush) 10 ml 1X PRN PRN IV AP catheter pack; Start 09/17/18 at 11:30; Stop 09/18/18 at 11:29; Status DC Sodium Chloride (Normal Saline Flush) 10 ml 1X PRN PRN IV 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; Start 09/17/18 at 11:30; Stop 09/18/18 at 11:29; Status DC Sodium Chloride 1,000 ml @ 400 mls/hr Q2H30M PRN IV PATENCY; Start 09/17/18 at 11:26; Stop 09/17/18 at 23:25; Status DC Info (PHARMACY MONITORING -- do not chart) 1 each PRN DAILY PRN MC SEE COMMENTS; Start 09/17/18 at 11:30; Status UNV Info (PHARMACY MONITORING -- do not chart) 1 each PRN DAILY PRN MC SEE COMMENTS; Start 09/17/18 at 11:30; Status Cancel Pantoprazole Sodium (Protonix) 40 mg DAILYAC PO Last administered on 09/25/18at 08:37; Start 09/18/18 at 07:30 Labetalol HCl (Trandate) 100 mg BID PO Last administered on 09/18/18at 19:40; Start 09/18/18 at 09:00; Stop 09/19/18 at 09:13; Status DC Lorazepam (Ativan) 0.5 mg PRN Q8HRS PRN PO ANXIETY / AGITATION, 1st CHOIC; Start 09/18/18 at 09:00 Haloperidol (Haldol) 0.5 mg PRN QID PRN PO AGITATION, 2ND CHOICE; Start 09/18/18 at 09:00; Stop 09/18/18 at 09:03; Status DC Haloperidol Lactate (HALDOL 2mg ORAL CONC) 0.5 mg PRN QID PRN PO AGITATION, 2ND CHOICE; Start 09/18/18 at 09:03 Metoprolol Tartrate (Lopressor Vial) 10 mg PRN Q6HRS PRN IVP HYPERTENSION; Start 09/18/18 at 19:15 Labetalol HCl (Trandate) 200 mg BID PO Last administered on 09/25/18at 08:37; Start 09/19/18 at 10:00 Sodium Chloride 1,000 ml @ 1,000 mls/hr Q1H PRN IV hypotension; Start 09/19/18 at 10:18; Stop 09/19/18 at 16:17; Status DC Diphenhydramine HCl (Benadryl) 25 mg 1X PRN PRN IV ITCHING; Start 09/19/18 at 10:30; Stop 09/20/18 at 10:29; Status DC Diphenhydramine HCl (Benadryl) 25 mg 1X PRN PRN IV ITCHING; Start 09/19/18 at 10:30; Stop 09/20/18 at 10:29; Status DC Sodium Chloride 1,000 ml @ 400 mls/hr Q2H30M PRN IV PATENCY; Start 09/19/18 at 10:18; Stop 09/19/18 at 22:17; Status DC Info (PHARMACY MONITORING -- do not chart) 1 each PRN DAILY PRN MC SEE COMMENTS; Start 09/19/18 at 10:30; Status UNV Midazolam HCl (Versed) 2 mg STK-MED ONCE .ROUTE ; Start 09/20/18 at 08:12; Stop 09/20/18 at 08:13; Status DC Fentanyl Citrate (Fentanyl 2ml Vial) 100 mcg STK-MED ONCE .ROUTE ; Start 09/20/18 at 08:12; Stop 09/20/18 at 08:13; Status DC Lidocaine/ Epinephrine (LIDOCAINE 1%-EPI 1:100,000 Multi-Dose) 20 ml STK-MED ONCE .ROUTE ; Start 09/20/18 at 08:13; Stop 09/20/18 at 08:14; Status DC Cefazolin Sodium 50 ml @ As Directed STK-MED ONCE IV ; Start 09/20/18 at 08:18; Stop 09/20/18 at 08:19; Status DC Cefazolin Sodium 50 ml @ As Directed STK-MED ONCE IV ; Start 09/20/18 at 08:18; Stop 09/20/18 at 08:19; Status DC Midazolam HCl (Versed) 2 mg STK-MED ONCE .ROUTE ; Start 09/20/18 at 08:39; Stop 09/20/18 at 08:40; Status DC Midazolam HCl (Versed) 2 mg 1X ONCE IV Last administered on 09/20/18at 08:45; Start 09/20/18 at 08:45; Stop 09/20/18 at 08:52; Status DC Fentanyl Citrate (Fentanyl 2ml Vial) 100 mcg 1X ONCE IV Last administered on 09/20/18 08:45; Start 09/20/18 at 08:45; Stop 09/20/18 at 08:52; Status DC Lidocaine/ Epinephrine (LIDOCAINE 1%-EPI 1:100,000 Multi-Dose) 20 ml 1X ONCE IJ Last administered on 09/20/18 08:45; Start 09/20/18 at 08:45; Stop 09/20/18 at 08:52; Status DC Cefazolin Sodium 50 ml @ 100 mls/hr 1X ONCE IV Last administered on 09/20/18 08:45; Start 09/20/18 at 08:45; Stop 09/20/18 at 09:14; Status DC Cefazolin Sodium 50 ml @ 100 mls/hr 1X ONCE IV Last administered on 09/20/18 08:45; Start 09/20/18 at 08:45; Stop 09/20/18 at 09:14; Status DC Furosemide (Lasix) 40 mg 1X ONCE IVP Last administered on 09/20/18at 14:44; Start 09/20/18 at 14:30; Stop 09/20/18 at 14:31; Status DC Furosemide (Lasix) 40 mg 1X ONCE IVP Last administered on 09/21/18 12:49; Start 09/21/18 at 12:30; Stop 09/21/18 at 12:31; Status DC Sodium Chloride 1,000 ml @ 1,000 mls/hr Q1H PRN IV hypotension; Start 09/21/18 at 16:54; Stop 09/21/18 at 22:53; Status DC Sodium Chloride 1,000 ml @ 400 mls/hr Q2H30M PRN IV PATENCY; Start 09/21/18 at 16:54; Stop 09/22/18 at 04:53; Status DC Info (PHARMACY MONITORING -- do not chart) 1 each PRN DAILY PRN MC SEE COMMENTS; Start 09/21/18 at 17:00; Stop 09/24/18 at 14:03; Status DC Info (PHARMACY MONITORING -- do not chart) 1 each PRN DAILY PRN MC SEE COMMENTS; Start 09/21/18 at 17:00; Status UNV Ceftriaxone Sodium (Rocephin) 1 gm Q24H IVP Last administered on 7/21/19at 08:52; Start 09/22/18 at 10:00; Stop 09/23/18 at 11:21; Status DC Darbepoetin Jacob (ARANESP for DIALYSIS PTS) 60 mcg [id number] SQ Last administered on 09/22/18at 21:25; Start 09/22/18 at 21:00 Cephalexin HCl (Keflex) 500 mg TID PO Last administered on 09/23/18at 13:19; Start 09/23/18 at 14:00; Stop 09/23/18 at 15:57; Status DC Cephalexin HCl (Keflex) 500 mg Q24H PO Last administered on 09/24/18at 13:05; Start 09/24/18 at 14:00 Zolpidem Tartrate (Ambien) 5 mg PRN QHS PRN PO INSOMNIA; Start 09/24/18 at 09:15 Sodium Chloride 1,000 ml @ 1,000 mls/hr Q1H PRN IV hypotension; Start 09/24/18 at 13:57; Stop 09/24/18 at 19:56; Status DC Albumin Human 200 ml @ 200 mls/hr 1X PRN PRN IV Hypotension; Start 09/24/18 at 14:00; Stop 09/24/18 at 19:59; Status DC Sodium Chloride (Normal Saline Flush) 10 ml 1X PRN PRN IV AP catheter pack; Start 09/24/18 at 14:00; Stop 09/24/18 at 21:00; Status DC Sodium Chloride (Normal Saline Flush) 10 ml 1X PRN PRN IV 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; Start 09/24/18 at 14:00; Stop 09/24/18 at 21:00; Status DC Sodium Chloride 1,000 ml @ 400 mls/hr Q2H30M PRN IV PATENCY; Start 09/24/18 at 13:57; Stop 09/25/18 at 01:56; Status DC Info (PHARMACY MONITORING -- do not chart) 1 each PRN DAILY PRN MC SEE COMMENTS; Start 09/24/18 at 14:00; Stop 09/24/18 at 14:03; Status DC Info (PHARMACY MONITORING -- do not chart) 1 each PRN DAILY PRN MC SEE COMMENTS; Start 09/24/18 at 14:00 Active Scripts Active Renal Caps Softgel (Folic Acid/Vitamin B Comp W-C) 1 Mg Capsule 1 Cap PO DAILY Lidocaine PATCH (Lidocaine) 1 Each Adh..patch 1 Patch TD DAILY Gabapentin 300 Mg Capsule 300 Mg PO QHS Oxycodone Hcl Immed.release (Oxycodone Hcl) 5 Mg Tablet 5 Mg PO PRN Q4HRS PRN Labetalol Hcl 100 Mg Tablet 200 Mg PO BID Cephalexin 250 Mg Capsule 500 Mg PO Q24H Reported Protonix (Pantoprazole Sodium) 20 Mg Tablet.dr 2 Tab PO DAILY Zyprexa (Olanzapine) 20 Mg Tablet 2 Tab PO QHS Buspirone Hcl 30 Mg Tablet 1 Tab PO BID Vitals/I & O Vital Sign - Last 24 Hours 09/24/18 09/24/18 09/24/18 09/24/18 13:06 17:14 17:44 19:00 Temp 99.2 99.2 Pulse 110 Resp 20 20 B/P (MAP) 134/65 (88) Pulse Ox 96 O2 Delivery Nasal Cannula Nasal Cannula Room Air Nasal Cannula O2 Flow Rate 2.0 09/24/18 09/24/18 09/24/18 09/25/18 20:00 21:19 23:00 03:00 Temp 99.7 98.5 99.7 98.5 Pulse 110 98 110 Resp 18 16 B/P (MAP) 134/65 103/61 (75) 109/68 (82) Pulse Ox 95 91 O2 Delivery Room Air 09/25/18 09/25/18 09/25/18 09/25/18 07:00 08:00 08:37 08:38 Temp 98.2 98.2 Pulse 76 76 Resp 18 B/P (MAP) 122/65 (84) 122/65 Pulse Ox 93 O2 Delivery Room Air Room Air Room Air 09/25/18 09/25/18 09:45 11:00 Temp 98.0 98.0 Pulse 74 Resp 18 B/P (MAP) 120/64 (82) Pulse Ox 94 O2 Delivery Room Air Room Air Intake and Output 09/24/18 09/24/18 09/25/18 15:00 23:00 07:00 Intake Total 840 ml 720 ml 0 ml Output Total 300 ml Balance 540 ml 720 ml 0 ml CASPER MONTGOMERY MD Sep 25, 2018 12:19
[2018-09-25] MEDS: CEPHALEXIN 250 MG CAPSULE. PO SCH (13:56)
[2018-09-25 15:00] VITALS: BP 119/65
--- NOTE | 2018-09-25 15:14 | RAD ---
Scrotal ultrasound HISTORY: Scrotal swelling, increasing pain. COMPARISON: September 21, 2018. TECHNIQUE: Grayscale, color and spectral waveform analysis. FINDINGS: Right testicle measures 3.6 x 2.6 x 2.4 cm. the right testicle appears overall mildly hypervascular, more so than what was seen on the prior study. Right testicle echotexture appears homogeneous without evidence of a focal lesion. Intact right testicle blood supply. Right epididymis does not demonstrate hypervascularity. Small right hydrocele. Left testicle measures 3.6 x 2.4 x 2.4 cm with homogeneous echotexture, and normal vascularity and blood supply. No focal lesion. Left epididymis appears unremarkable without hypervascularity. Small left hydrocele. Severe scrotal wall thickening/edema is again identified, similar to the previous exam. IMPRESSION: 1. Mild overall hypervascularity of the right testicle, as compared with prior study as well as compared with the contralateral testicle. This is nonspecific, but is concerning for orchitis. Other etiologies such as a recently detorsed testicle could also be considered. 2. Bilateral scrotal wall thickening is again identified. Correlate for clinical cellulitis. Electronically signed by: Forrest Castaneda MD (09/25/2018 3:11 PM) [id number]
--- NOTE | 2018-09-25 17:51 | NUR ---
Discharge Note: PT DISCHARGED HOME WITH SELF CARE, PT LEFT FACILITY WITHOUT BEING ESCORTED OUT STATED THAT HE WAS GOING TO GO WITH HIS FRIEND AND NOT THROUGH THE CAB PASS. PT EDUCATED THAT HE NEEDED TO BE AT THE [facility] BY 1830 OR HE WOULDN'T BE ABLE TO STAY THERE, STATED THAT HE WAS GOING TO STAY WITH HIS FRIEND JERAD, PT WOULD NOT ALLOW STAFF TO WALK OUT WITH HIM AND STATED THAT "WE SHOULD JUST CALL THE [facility]ING [employer] BECAUSE HE WOULD NOT GET INTO THE CAB", PT EDUCATED ABOUT SAFETY ISSUES WITH DISCHARGING WITH TUNNELED CATH IN CHEST BUT REFUSED TO LISTEN TO REASONING. PT INFORMED THAT "IF HE DID ANYMORE DRUGS THAT HE WOULD OR IF HE MISSED DIALYSIS APPOINTMENTS HE WOULD ." PT INFORMED THAT HE NEEDED TO COME TO [facility] FOR DIALYSIS MWF AROUND 0800 PT STATED THAT HE WOULD BE HERE FOR DIALYSIS. PT WAS TALKING ON CELL PHONE WHEN HE CONTINUED TO LEAVE HOSPITAL WITHOUT STAFF SUPERVISION AND WAS BECOMING VERY AGITATED WITH STAFF WHEN HE CONTINUED TO WALK OUT TO STAFF ELEVATORS, SECURITY INFORMED THAT PT WAS AGITATED AND LEAVING WITHOUT STAFF ASSISTANCE, SECURITY STATED THAT THEY COULDN'T DO ANYTHING TO STOP PT BECAUSE HE HAD HIS DISCHARGE PAPERWORK ALREADY SIGNED. RICK WESLEY Discharge instructions and discharge home medications reviewed with Patient and a copy given. All questions have been answered and understanding verbalized.
[2018-09-27] MEDS ORDERED: ACET325T9 PO (17:36)
== END 2018-09-25 18:07 | disposition home or self-care (01) | DRG 871 ==
LOC: ER 19:54 → 1 WEST ICU 09-12 00:56 → 6 SOUTH 09-16 14:07 → 5 SOUTH 09-18 21:55
PROVIDERS: ADMIT Internal Medicine; ATTEND Internal Medicine
PROC: 009U3ZX Drainage of Spinal Canal, Percutaneous Approach, Diagnostic (ICD-10-PCS; principal; 2018-09-12)
PROC: B01B1ZZ Fluoroscopy of Spinal Cord using Low Osmolar Contrast (ICD-10-PCS; 2018-09-12)
PROC: 5A1D70Z Performance of Urinary Filtration, Intermittent, Less than 6 Hours Per Day (ICD-10-PCS; 2018-09-12)
PROC: 5A1D70Z Performance of Urinary Filtration, Intermittent, Less than 6 Hours Per Day (ICD-10-PCS; 2018-09-13)
PROC: 02HV33Z Insertion of Infusion Device into Superior Vena Cava, Percutaneous Approach (ICD-10-PCS; 2018-09-13)
PROC: B548ZZA Ultrasonography of Superior Vena Cava, Guidance (ICD-10-PCS; 2018-09-13)
PROC: 5A1D70Z Performance of Urinary Filtration, Intermittent, Less than 6 Hours Per Day (ICD-10-PCS; 2018-09-17)
PROC: 5A1D70Z Performance of Urinary Filtration, Intermittent, Less than 6 Hours Per Day (ICD-10-PCS; 2018-09-19)
PROC: 02PYX3Z Removal of Infusion Device from Great Vessel, External Approach (ICD-10-PCS; 2018-09-20)
PROC: 02H633Z Insertion of Infusion Device into Right Atrium, Percutaneous Approach (ICD-10-PCS; 2018-09-20)
PROC: 0JH63XZ Insertion of Tunneled Vascular Access Device into Chest Subcutaneous Tissue and Fascia, Percutaneous Approach (ICD-10-PCS; 2018-09-20)
PROC: B2141ZZ Fluoroscopy of Right Heart using Low Osmolar Contrast (ICD-10-PCS; 2018-09-20)
PROC: 5A1D70Z Performance of Urinary Filtration, Intermittent, Less than 6 Hours Per Day (ICD-10-PCS; 2018-09-21)
PROC: 5A1D70Z Performance of Urinary Filtration, Intermittent, Less than 6 Hours Per Day (ICD-10-PCS; 2018-09-24)
DX: A41.9 Sepsis, unspecified organism (principal); G93.41 Metabolic encephalopathy; N18.6 End stage renal disease; K76.7 Hepatorenal syndrome; E43 Unspecified severe protein-calorie malnutrition; T23.321A Burn of third degree of single right finger (nail) except thumb, initial encounter; E87.1 Hypo-osmolality and hyponatremia; I13.2 Hypertensive heart and chronic kidney disease with heart failure and with stage 5 chronic kidney disease, or end stage renal disease; L03.113 Cellulitis of right upper limb; N17.9 Acute kidney failure, unspecified; N30.01 Acute cystitis with hematuria; T79.6XXA Traumatic ischemia of muscle, initial encounter; E83.51 Hypocalcemia; E87.5 Hyperkalemia; E88.2 Lipomatosis, not elsewhere classified; F03.90 Unspecified dementia, unspecified severity, without behavioral disturbance, psychotic disturbance, mood disturbance, and anxiety; F15.10 Other stimulant abuse, uncomplicated; F17.210 Nicotine dependence, cigarettes, uncomplicated; G47.00 Insomnia, unspecified; I50.9 Heart failure, unspecified; K21.9 Gastro-esophageal reflux disease without esophagitis; N43.3 Hydrocele, unspecified; N49.2 Inflammatory disorders of scrotum; N50.89 Other specified disorders of the male genital organs; T23.001A Burn of unspecified degree of right hand, unspecified site, initial encounter; Z82.49 Family history of ischemic heart disease and other diseases of the circulatory system; Z87.11 Personal history of peptic ulcer disease; F14.10 Cocaine abuse, uncomplicated; F32.9 Major depressive disorder, single episode, unspecified; F41.9 Anxiety disorder, unspecified
CPT/HCPCS: 36415; 36556; 36581; 62270; 70450; 71045; 72141; 72146; 72148; 73130; 76705; 76870; 76937; 77001; 80048; 80053; 80069; 80307; 81001; 82310; 82550; 82570; 82607; 82787; 82945; 82962; 83605; 83690; 83735; 83916; 83935; 84100; 84157; 84300; 84443; 84484; 85007; 85014; 85018; 85025; 85027; 85520; 85610; 85651; 85730; 86038; 86703; 86704; 86705; 86709; 86803; 87040; 87071; 87075; 87086; 87340; 87521; 87641; 89051; 93005; 94640; 96361; 96374; 96375; 99152; 99153; C1750; C1769; C1892; C9113; G0480; J0610; J0690; J0696; J0882; J1630; J1644; J1815; J1940; J2060; J2250; J2270; J2405; J3010; J3480; J3490; J7030; J7042; J7613; 97110; 97116; 97530; 97535; 99285-25

== ENCOUNTER 2018-09-26 12:46 | Inpatient (IN) | payer SELFPAY ==
[~2018-09-26] VITALS: Ht 172.7 cm; Wt 108.9 kg
[~2018-09-26 12:46] MED LIST: BUSP30TA PO; CEPH250C PO; FOLI1CAP10 PO; GABA300C18 PO; LABE100T5 PO; LIDO700A21 TD; OLAN20TA3 PO; OXYC5TAB4 PO; PANT20TA2 PO
[2018-09-26 13:54] LABS: BASO # 0.1 x10^3/uL (0.0-0.2); BASO % 1 % (0-3); EOS # 0.1 x10^3/uL (0.0-0.7); EOS % 1 % (0-3); HEMATOCRIT 21.4 % (39.0-53.0); HEMOGLOBIN 7.3 g/dL (13.0-17.5); LYMPH # 0.6 x10^3/uL (1.0-4.8); LYMPH % 7 % (24-48); MEAN CORPUSCULAR HEMOGLOBIN 30 pg (25-35); MEAN CORPUSCULAR HGB CONC 34 g/dL (31-37); MEAN CORPUSCULAR VOLUME 87 fL (79-100); MONO # 0.6 x10^3/uL (0.0-1.1); MONO % 6 % (0-9); NEUT # 8.3 x10^3/uL (1.8-7.7); NEUT % 85 % (31-73); PLATELET COUNT 355 x10^3/uL (140-400); RED BLOOD COUNT 2.46 x10^6/uL (4.30-5.70); RED CELL DISTRIBUTION WIDTH 14.9 % (11.5-14.5); WHITE BLOOD COUNT 9.7 x10^3/uL (4.0-11.0)
[2018-09-26] MEDS ORDERED: IV NORMAL SALINE 1000ML BAG 1,000 ML IV PRN ×2 (14:00)
[2018-09-26 14:10] LABS: CALCIUM 8.7 mg/dL (8.5-10.1); CREATININE 7.7 mg/dL (0.7-1.3); GFR 8.3; POTASSIUM 4.7 mmol/L (3.5-5.1)
[2018-09-26] MEDS ORDERED: ALBUMIN HUMAN 25% 200 ML IV PRN (14:15)
[2018-09-26] MEDS ORDERED: DIALYSIS PATIENT. MC PRN (14:15)
[2018-09-26] MEDS ORDERED: diphenhydrAMINE 50 MG/ML VIAL IV PRN ×2 (14:15)
[2018-09-26] MEDS ORDERED: ACETAMINOPHEN 500 MG TABLET PO PRN (14:15)
[2018-09-26 14:17] LABS: % BASOS 1 % (0-3); % EOS 1 % (0-5); % LYMPHS 6 % (24-48); % MONOS 2 % (0-10); % SEGS 90 % (35-66); PLATELET CLUMP PRESENT; PLT ESTIMATE ADEQUATE (ADEQUATE)
[2018-09-26 14:18] LABS: ALBUMIN 2.5 g/dL (3.4-5.0); ALBUMIN/GLOBULIN RATIO 0.6 (1.0-1.7); ANISOCYTOSIS SLIGHT; TARGET CELLS OCC; TOTAL BILIRUBIN 0.7 mg/dL (0.2-1.0); TOTAL PROTEIN 6.7 g/dL (6.4-8.2)
[2018-09-26 14:25] VITALS: BP 141/68
--- NOTE | 2018-09-26 14:53 | PHYS DOC ---
Past Medical History Past Medical History: Anxiety, Depression, High Cholesterol, Hypertension, Renal Failure Past Surgical History: Other Additional Past Surgical Histo: Right Chest dialysis catheter Alcohol Use: None Drug Use: Methamphetamine Adult General Chief Complaint Chief Complaint: DIALYSIS PROBLEM HPI HPI Patient is a 28 year old male with new diagnosis of end-stage renal disease who presents to the ED today stating he was discharged from the hospital yesterday and asked to come back today to be dialyzed. Patient is a poor historian giving any information. He states he feels swollen from abdomen all the way down to his feet, he is also complaining of SOA. Last dialyzed Monday Review of Systems Review of Systems Constitutional: Denies fever or chills [] Eyes: Denies change in visual acuity, redness, or eye pain [] HENT: Denies nasal congestion or sore throat [] Respiratory: Denies cough or shortness of breath [] Cardiovascular: No additional information not addressed in HPI [] GI: Denies abdominal pain, nausea, vomiting, bloody stools or diarrhea [] : Denies dysuria or hematuria [] Musculoskeletal: Denies back pain or joint pain [] Integument: Denies rash or skin lesions [] Neurologic: Denies headache, focal weakness or sensory changes [] Endocrine: ESRD All other systems were reviewed and found to be within normal limits, except as documented in this note. Current Medications Current Medications Current Medications Medications (Trade) Dose Ordered Sig/Mirela Start Time Stop Time Status Last Admin Dose Admin Acetaminophen (Tylenol) 500 mg 1X PRN PRN 09/26/18 14:15 09/26/18 22:00 Albumin Human 200 ml @ 200 mls/hr 1X PRN PRN 09/26/18 14:15 09/26/18 20:14 Diphenhydramine HCl (Benadryl) 25 mg 1X PRN PRN 09/26/18 14:15 09/26/18 22:00 Info (PHARMACY MONITORING -- do not chart) 1 each PRN DAILY PRN 09/26/18 14:15 Sodium Chloride 1,000 ml @ 400 mls/hr Q2H30M PRN 09/26/18 14:00 09/26/18 22:00 Allergies Allergies Allergies Coded Allergies Type Severity Reaction Last Updated Verified I S O L A T I O N *CONTACT* Allergy Unknown 09/13/18 Yes No Known Medication Allergies Allergy Unknown 09/13/18 Yes Physical Exam Physical Exam Constitutional: Well developed, well nourished, no acute distress, non-toxic appearance. [] HENT: Normocephalic, atraumatic, bilateral external ears normal, oropharynx moist, no oral exudates, nose normal. [] Eyes: PERRLA, EOMI, conjunctiva normal, no discharge. [] Neck: Normal range of motion, no tenderness, supple, no stridor. [] Cardiovascular:Heart rate regular rhythm, no murmur [] Lungs & Thorax: Crackles posterior lung bases Abdomen: Rounded abdomen. Bowel sounds normal, soft, no tenderness, no masses, no pulsatile masses. [] Skin: Warm, dry, no erythema, no rash. [] Back: No tenderness, no CVA tenderness. [] Extremities: No tenderness, no cyanosis, no clubbing, ROM intact, edema noted to bilateral lower extremities, abdomen Neurologic: Alert and oriented X 3, normal motor function, normal sensory function, no focal deficits noted. [] Psychologic: Affect normal, judgement normal, mood normal. [] Current Patient Data Vital Signs Vital Signs Date Time Temp Pulse Resp B/P (MAP) Pulse Ox O2 Delivery O2 Flow Rate FiO2 09/26/18 12:54 98.7 104 20 148/84 (105) 90 Room Air 98.7 Lab Values Laboratory Tests Test 09/26/18 13:45 White Blood Count 9.7 x10^3/uL (4.0-11.0) Red Blood Count 2.46 x10^6/uL (4.30-5.70) L Hemoglobin 7.3 g/dL (13.0-17.5) L Hematocrit 21.4 % (39.0-53.0) L Mean Corpuscular Volume 87 fL (79-100) Mean Corpuscular Hemoglobin 30 pg (25-35) Mean Corpuscular Hemoglobin Concent 34 g/dL (31-37) Red Cell Distribution Width 14.9 % (11.5-14.5) H Platelet Count 355 x10^3/uL (140-400) # Neutrophils (%) (Auto) 85 % (31-73) H Lymphocytes (%) (Auto) 7 % (24-48) L Monocytes (%) (Auto) 6 % (0-9) Eosinophils (%) (Auto) 1 % (0-3) Basophils (%) (Auto) 1 % (0-3) Neutrophils # (Auto) 8.3 x10^3/uL (1.8-7.7) H Lymphocytes # (Auto) 0.6 x10^3/uL (1.0-4.8) L Monocytes # (Auto) 0.6 x10^3/uL (0.0-1.1) Eosinophils # (Auto) 0.1 x10^3/uL (0.0-0.7) Basophils # (Auto) 0.1 x10^3/uL (0.0-0.2) Segmented Neutrophils % 90 % (35-66) H Lymphocytes % 6 % (24-48) L Monocytes % 2 % (0-10) Eosinophils % 1 % (0-5) Basophils % 1 % (0-3) Platelet Estimate Adequate (ADEQUATE) Platelet Clumps, EDTA Present Large Platelets Occ Anisocytosis Slight Target Cells Occ Sodium Level 135 mmol/L (136-145) L Potassium Level 4.7 mmol/L (3.5-5.1) Chloride Level 97 mmol/L (98-107) L Carbon Dioxide Level 26 mmol/L (21-32) Anion Gap 12 (6-14) Blood Urea Nitrogen 40 mg/dL (8-26) H Creatinine 7.7 mg/dL (0.7-1.3) H Estimated GFR (Cockcroft-Gault) 8.3 BUN/Creatinine Ratio 5 (6-20) L Glucose Level 90 mg/dL (70-99) Calcium Level 8.7 mg/dL (8.5-10.1) Total Bilirubin 0.7 mg/dL (0.2-1.0) Aspartate Amino Transferase (AST) 40 U/L (15-37) H Alanine Aminotransferase (ALT) 25 U/L (16-63) Alkaline Phosphatase 100 U/L (46-116) SI-[id number]-Type Natriuretic Peptide 41245 pg/mL (0-124) H Total Protein 6.7 g/dL (6.4-8.2) Albumin 2.5 g/dL (3.4-5.0) L Albumin/Globulin Ratio 0.6 (1.0-1.7) L Laboratory Tests 09/26/18 13:45 Laboratory Tests 09/26/18 13:45 EKG EKG [] Radiology/Procedures Radiology/Procedures [] Course & Med Decision Making Course & Med Decision Making Pertinent Labs and Imaging studies reviewed. (See chart for details) This is a 28-year-old male patient poor historian presenting to the ED today requesting dialysis. Patient states he was discharged from the hospital yesterday with end-stage renal disease and instructed to come back today to be dialyzed. Labs are pending. Dialysis nurse called requesting we sent the patient to dialysis right now. Spoke with Dr. Us who accepted patient for admission Dragon Disclaimer Dragon Disclaimer This electronic medical record was generated, in whole or in part, using a voice recognition dictation system. Departure Departure Impression: Primary Impression: ESRD (end stage renal disease) Disposition: ADMITTED INPATIENT Condition: STABLE Referrals: NO PCP (PCP) NATHEN ARCE APRN Sep 26, 2018 14:53
[2018-09-26] MEDS ORDERED: ONDANSETRON PF 4 MG/2 ML VIAL. IV PRN (15:30)
--- NOTE | 2018-09-26 16:42 | NUR ---
The patient, JERRY WESLEY, 28 y/o, M admitted by AINSLEY BOWENS III, DO, was given written information regarding hospital policies, unit procedures and contact persons. Assessed while at dialysis.
--- NOTE | 2018-09-26 18:23 | NUR ---
Pt left AMA as soon as he was finished w/ dialysis. IV d/c'd, pt sticker given to security. Pt ambulated to private vehicle, was accompanied by friend.
[2018-09-27] MEDS ORDERED: ACET325T9 PO (17:36)
== END 2018-09-26 18:28 | disposition left against medical advice (07) | DRG 682 ==
LOC: ER 12:46 → 5 NORTH 14:43
PROVIDERS: ADMIT Internal Medicine; ATTEND Internal Medicine
PROC: 5A1D70Z Performance of Urinary Filtration, Intermittent, Less than 6 Hours Per Day (ICD-10-PCS; principal; 2018-09-26)
DX: I12.0 Hypertensive chronic kidney disease with stage 5 chronic kidney disease or end stage renal disease (principal); N18.6 End stage renal disease; E78.00 Pure hypercholesterolemia, unspecified; F32.9 Major depressive disorder, single episode, unspecified; F41.9 Anxiety disorder, unspecified; Z53.21 Procedure and treatment not carried out due to patient leaving prior to being seen by health care provider
CPT/HCPCS: 36415; 80053; 83880; 85007; 85025; 99285-25